=== PATIENT | female | born 1995 | race Caucasian/White ===

== ENCOUNTER → 2023-06-30 | Outpatient (CLI) | payer OTHER, SELFPAY ==
[2023-06-30 13:32] LABS: hCG Titer Quant., Serum 36 mIU/mL (1-3)
== END | disposition home or self-care (01) ==
PROVIDERS: Referring Provider Advanced Practice Midwife; Visit Provider Advanced Practice Midwife
DX: N91.2 Amenorrhea, unspecified (principal)
CPT/HCPCS: 36415; 84702

== ENCOUNTER → 2023-07-02 | Outpatient (CLI) | payer OTHER, SELFPAY ==
[2023-07-02 13:31] LABS: hCG Titer Quant., Serum 101 mIU/mL (1-3)
== END | disposition home or self-care (01) ==
LOC: PAVLAB 12:32
PROVIDERS: Referring Provider Advanced Practice Midwife; Visit Provider Advanced Practice Midwife
DX: N91.2 Amenorrhea, unspecified (principal)
CPT/HCPCS: 36415; 84702

== ENCOUNTER → 2023-07-24 | Outpatient (CLI) | payer OTHER, SELFPAY ==
[2023-07-24 09:55] LABS: Absolute Lymphocyte Count 1.63 X10^3/uL (0.83-4.51); Absolute Neutrophil Count 7.8 X10^3/uL (2.0-7.7); Basophil# 0.05 X10^3/uL; Basophil% 0.5 % (0-1); Eosinophil# 0.02 X10^3/uL; Eosinophils% 0.2 % (0-5); Hematocrit 39.4 % (37-47); Hemoglobin 12.8 g/dL (12.0-15.0); Lymphocyte # 1.63 X10^3/ul (0.83-4.51); Lymphocyte % 16.2 % (19-41); Mean Corp Hgb Conc 32.5 g/dL (32-36); Mean Corpuscular Hgb 27.4 pg (27.0-32.0); Mean Corpuscular Volume 84.2 fL (81-99); Mean Platelet Vol. 9.4 fl (6.2-12.0); Monocyte# 0.53 X10^3/uL; Monocyte% 5.3 % (0-10); NRBC Flagged by Analyzer 0 % (0-5); Neutrophil % 77.5 % (47-70); Platelet Count 358 K/mm3 (150-450); RBC Distribution Width CV 12.7 % (11.6-14.6); RBC Distribution Width SD 38.5 fl (35.1-43.9); Red Blood Count 4.68 M/mm3 (4.2-5.4); White Blood Count 10.1 K/mm3 (4.4-11.0)
[2023-07-24 13:13] LABS: Hemoglobin A1c 4.9 % (3.8-5.6)
[2023-07-24 19:42] LABS: HIV - WCH Non-Reactive (Nonreactive); Hepatitis B Surface Antigen Non-Reactive (Nonreactive); Hepatitis C Antibody Non-Reactive (Nonreactive); Rubella IgG Reactive (Nonreactive); Syphilis Antibodies Non-reactive
[2023-07-26 12:09] LABS: Chlamydia By Nucleic Acid AMP Negative (Negative); Gonococcus By Nucleic Acid AMP Negative (Negative)
[2023-07-28 21:12] LABS: HPV Reflexed? NOT INDICATED
== END | disposition home or self-care (01) ==
LOC: PAVLAB 09:33
PROVIDERS: Referring Provider Advanced Practice Midwife; Visit Provider Advanced Practice Midwife
DX: O09.90 Supervision of high risk pregnancy, unspecified, unspecified trimester (principal); Z3A.00 Weeks of gestation of pregnancy not specified
CPT/HCPCS: 36415; 83036; 85025; 86703; 86762; 86780; 86803; 86850; 86900; 86901; 87086; 87088; 87340; 87491; 87591; 88175; G0145

== ENCOUNTER → 2023-08-13 | Outpatient (CLI) | payer MEDICAID, SELFPAY | END | disposition home or self-care (01) | PROVIDERS: Referring Provider Obstetrics & Gynecology; Visit Provider Obstetrics & Gynecology | DX: O26.899 Other specified pregnancy related conditions, unspecified trimester (principal); R10.9 Unspecified abdominal pain; Z3A.00 Weeks of gestation of pregnancy not specified | CPT/HCPCS: 87086; 87088 ==

== ENCOUNTER → 2023-12-25 | Outpatient (CLI) | payer MEDICAID, SELFPAY ==
[2023-12-25 09:38] LABS: Absolute Lymphocyte Count 1.73 X10^3/uL (0.83-4.51); Absolute Neutrophil Count 8.2 X10^3/uL (2.0-7.7); Basophil# 0.05 X10^3/uL; Basophil% 0.5 % (0-1); Eosinophil# 0.09 X10^3/uL; Eosinophils% 0.8 % (0-5); Hematocrit 33.8 % (37-47); Hemoglobin 11.2 g/dL (12.0-15.0); Lymphocyte # 1.73 X10^3/ul (0.83-4.51); Lymphocyte % 16.3 % (19-41); Mean Corp Hgb Conc 33.1 g/dL (32-36); Mean Corpuscular Hgb 28.9 pg (27.0-32.0); Mean Corpuscular Volume 87.1 fL (81-99); Mean Platelet Vol. 9.3 fl (6.2-12.0); Monocyte# 0.47 X10^3/uL; Monocyte% 4.4 % (0-10); NRBC Flagged by Analyzer 0 % (0-5); Neutrophil # 8.23 X10^3/uL (2.7-7.7); Neutrophil % 77.4 % (47-70); Platelet Count 288 K/mm3 (150-450); RBC Distribution Width CV 13.1 % (11.6-14.6); Red Blood Count 3.88 M/mm3 (4.2-5.4); White Blood Count 10.6 K/mm3 (4.4-11.0)
[2023-12-25 09:57] LABS: Glucose Challenge Gest 1H 50g 127 mg/dL (70-140)
[2023-12-26 13:16] LABS: HIV - WCH Non-Reactive (Nonreactive); Syphilis Antibodies Non-reactive
== END | disposition home or self-care (01) ==
PROVIDERS: Referring Provider Advanced Practice Midwife; Visit Provider Advanced Practice Midwife
DX: O09.91 Supervision of high risk pregnancy, unspecified, first trimester (principal); Z13.1 Encounter for screening for diabetes mellitus; Z3A.00 Weeks of gestation of pregnancy not specified
CPT/HCPCS: 36415; 82950; 85025; 86703; 86780

== ENCOUNTER 2024-01-01 22:40 | Outpatient (CLI) | payer MEDICAID, SELFPAY ==
--- OUTSIDE RECORDS SUMMARY | 2024-01-01 22:51 | XMS RPT_ITS | CCD ---
Author Organization [facility] [employer]INCIPAL PRODUCT MANAGER [facility] Care Team Providers Care Veterinarian Small Animal Name Role Phone Unavailable Primary Care Provider Unavailabl e PHYSICIAN, NONE Primary Care Physician Unavailab KAYODE Voss (PAAbel[facility]) Attending [employer], [facility] Primary Care Provider [employer]av [employer], [facility] Primary Care Unavailable Hilary ALFRED Attending Unavailable CANDI CONTRERAS DO Attending Unavailable PHYSICIAN, NONE Primary Care Unavailable NO PRIMARY CARE, Primary Care Unavailable MABEL CORDOVA Attending Unavailable DANIEL CASTILLO Referring Unavailabl e PHYSICIAN, NONE Primary Care Unavailable CAILIN FLOYD Attending Unav ailable Allergies Allergy Classification Reported Allergen(s) Allergy Type Date of Onset Reaction(s) Facility (2 sources) tuan allergenic extract; Translations: [TUAN] Drug Allergy 05-08-2022 Anaphylaxis [facility] (6 sources) Sulfonamides (Antibiotic); Translations: [sulfa drugs] Drug Allergy 10-10-2020 Diarrhea [facility] (2 sources) Adhesive Tape-Silicones; Translations: [ADHESIVE TAPE-SILICONES] Drug Allergy 05-08-2022 Rash [facility] (1 source) Sulfonamide; Translations: [sulfa drugs] Drug allergy [facility] Medications Completed/Discontinued Medications Medication Drug Class(es) Dates Sig (Normalized) Sig (Original) vit no.124/iron/folic ( VITAMIN ORAL) (1 source) vit no.124/iron/folic ( VITAMIN ORAL) Take by mouth once daily. 0 Active Comment on above: Take by mouth once d aily. tetracaine hydrochloride 5 mg/ml ophthalmic solution (2 sources) [facility] Start: 10-29-2022 End: 10-29-2022 tetracaine (Altacaine) 0.5 % ophthalmic solution 1-2 drop Problems Problem Classification Problem Date Documented Da te Episodic/Chronic Abdominal pain (2 sources) Pain in pelvis; Translations: [Pelvic and perineal pain] Onset: 05-08-2022 Episodic Hemorrhage during ; abruptio placenta; placenta previa (2 sources) Antepartum hemorrhage; Translations: [Antepartum hemorrhage, unspecified, unspecified trimester] Onset: 07-01-2023 Episodic Other female genital disorders (1 source) Vaginal bleeding; Translations: [Abnormal uterine and vaginal bleeding, unspecified] Chronic Other female genital disorders (1 source) Abnormal uterine and vaginal bleeding, unspecified; Translations: [Vaginal bleeding] Onset: 05-08-2022 Chronic Other injuries and conditions due to external causes (2 sources) Foreign body of eye region; Translations: [Foreign body on external eye, part unspecified, right eye, initial encounter] 10-29-2022 Episodic Other injuries and conditions due to external causes (2 sources) Foreign body on external eye, part unspecified, right eye, initial encounter; Translations: [Foreign body on external eye, part unspecified, right eye, initial encounter] Onset: 10-29-2022 Episodic Other and delivery including normal (3 sources) ; Translations: [Encounter for supervision of normal , unspecified, unspecified trimester] Onset: 05-08-2022 Episodic Comment on above: [facility] Status documented as Yes on Admission Spontaneous (1 source) Complete inevitable miscarriage without complication; Translations: [Complete or unspecified spontaneous without complication] Onset: 05-08-2022 Episodic Results Test Name Value Interpretation Reference Range Facility .Auto Diffon 06-30-2023 Basophil, Absolute 0.1 10 3/mcL Normal 0.0-0.2 [facility] ([place]) Comment on above: Performed By: #### G FR, ANEU, ADIFF, CBC, HCGQ, MDW, BMP #### Yoni [address] [address] Basophils/100 WBC (Bld) 0.7 % Normal 0.0-2.5 [facility] ([place]) Comment on above: Performed By: #### G FR, ANEU, ADIFF, CBC, HCGQ, MDW, BMP #### [address] [address] Eosinophil, Absolute 0.1 10 3/mcL Normal 0.0-0.4 [facility] ([place]) Comment on above: Performed By: #### G FR, ANEU, ADIFF, CBC, HCGQ, MDW, BMP #### [address] [address] Eosinophils/100 WBC (Bld) 0.5 % Normal 0.0-7.0 [facility] ([place]) Comment on above: Performed By: #### G FR, ANEU, ADIFF, CBC, HCGQ, MDW, BMP #### [address] [address] Lymphocyte, Absolute 2.5 10 3/mcL Normal 0.8-3.9 [facility] ([place]) Comment on above: Performed By: #### G FR, ANEU, ADIFF, CBC, HCGQ, MDW, BMP #### [address] [address] Lymphocytes/100 WBC (Bld) 22.4 % Normal 10.0-50.0 [facility] ([place] Comment on above: Performed By: #### G FR, ANEU, ADIFF, CBC, HCGQ, MDW, BMP #### [address] [address] Monocyte, Absolute 0.7 10 3/mcL Normal 0.2-1.0 [facility] ([place] Comment on above: Performed By: #### G FR, ANEU, ADIFF, CBC, HCGQ, MDW, BMP #### [address] [address] Monocytes/100 WBC (Bld) 6.6 % Normal 1.7-13.0 [facility] ([place]) Comment on above: Performed By: #### G FR, ANEU, ADIFF, CBC, HCGQ, MDW, BMP #### [address] [address] Neutrophils/100 WBC (Bld) 69.8 % Normal 37.0-80.0 [facility] ([place] Comment on above: Performed By: #### G FR, ANEU, ADIFF, CBC, HCGQ, MDW, BMP #### [address] [address] .GFRon 06-30-2023 GFR 114 ml/min/1.73sqm Normal [facility] ([place]) Comment on above: Result Comment: GFR Population mean for , Non- Americans Ages 20-29 = 116 mL/min/1.73 sq.m. Ages 30-39 = 107 mL/min/1.73 sq.m. Ages 40-49 = 99 mL/min/1.73 sq.m. Ages 50-59 = 93 mL/min/1.73 sq.m. Ages 60-69 = 85 mL/min/1.73 sq.m. Ages 70+ = 75 mL/min/1.73 sq.m. Chronic Kidney Disease: Less than 60 mL/min/1.73 square meters End Stage Renal Disease: Less than 15 mL/min/1.73 square meters Performed By: #### G FR, ANEU, ADIFF, CBC, HCGQ, MDW, BMP #### [address] [address] GFR Non- 94 ml/min/1.73sqm Normal [facility] ([place]) Comment on above: Result Comment: GFR Population mean for , Non- Americans Ages 20-29 = 116 mL/min/1.73 sq.m. Ages 30-39 = 107 mL/min/1.73 sq.m. Ages 40-49 = 99 mL/min/1.73 sq.m. Ages 50-59 = 93 mL/min/1.73 sq.m. Ages 60-69 = 85 mL/min/1.73 sq.m. Ages 70+ = 75 mL/min/1.73 sq.m. Chronic Kidney Disease: Less than 60 mL/min/1.73 square meters End Stage Renal Disease: Less than 15 mL/min/1.73 square meters Performed By: #### G FR, ANEU, ADIFF, CBC, HCGQ, MDW, BMP #### [address] [address] .MDWon 06-30-2023 Monocyte Distribution Width 19.44 Normal 0.00-20.00 [facility] ([place]) Comment on above: Result Comment: For ED adult patients suspected of sepsis, MDW<=20.0 does not rule out sepsis or risk of sepsis Performed By: #### G FR, ANEU, ADIFF, CBC, HCGQ, MDW, BMP #### [place] [id number] .NEUABSon 06-30-2023 Neutrophil, Absolute 7.9 10 3/mcL High 2.9-6.2 [facility] ([place]) Comment on above: Performed By: #### G FR, ANEU, ADIFF, CBC, HCGQ, MDW, BMP #### [address] [address] BMPon 06-30-2023 BUN/Creatinine Ratio 26 ratio Normal 7-27 [facility] ([place] Comment on above: Performed By: #### G FR, ANEU, ADIFF, CBC, HCGQ, MDW, BMP #### [place] [id number] Calcium [Mass/Vol] 9.0 mg/dL Normal 8.4-10.2 [facility] ([place]) Comment on above: Performed By: #### G FR, ANEU, ADIFF, CBC, HCGQ, MDW, BMP #### [address] [address] Chloride [Moles/Vol] 104 mmol/L Normal 98-107 [facility] ([place] Comment on above: Performed By: #### G FR, ANEU, ADIFF, CBC, HCGQ, MDW, BMP #### [place] [address] CO2 [Moles/Vol] 23 mmol/L Normal 22-29 [facility] ([place] Comment on above: Performed By: #### G FR, ANEU, ADIFF, CBC, HCGQ, MDW, BMP #### [address] [address] Creatinine [Mass/Vol] 0.74 mg/dL Normal 0.55-1.02 [facility] ([place]) Comment on above: Performed By: #### G FR, ANEU, ADIFF, CBC, HCGQ, MDW, BMP #### [address] [address] Electrolyte Balance 12.0 mEq/L Normal 4.0-15.0 [facility] ([place]) Comment on above: Performed By: #### G FR, ANEU, ADIFF, CBC, HCGQ, MDW, BMP #### [address] [address] Glucose [Mass/Vol] 97 mg/dL Normal 70-105 [facility] ([place]) Comment on above: Performed By: #### G FR, ANEU, ADIFF, CBC, HCGQ, MDW, BMP #### [address] [address] Potassium [Moles/Vol] 3.6 mmol/L Normal 3.5-5.1 [facility] ([place]) Comment on above: Performed By: #### G FR, ANEU, ADIFF, CBC, HCGQ, MDW, BMP #### [address] [address] Sodium [Moles/Vol] 139 mmol/L Normal 136-145 [facility] ([place]) Comment on above: Performed By: #### G FR, ANEU, ADIFF, CBC, HCGQ, MDW, BMP #### [address] [address] Urea nitrogen [Mass/Vol] 19 mg/dL High 7-18 [facility] ([place]) Comment on above: Performed By: #### G FR, ANEU, ADIFF, CBC, HCGQ, MDW, BMP #### [address] [address] CBCon 06-30-2023 Erythrocyte distribution width (RBC) [Ratio] 13.6 % Normal 11.5-14.5 [facility] ([place]) Comment on above: Performed By: #### G FR, ANEU, ADIFF, CBC, HCGQ, MDW, BMP #### [address] [address] Hematocrit (Bld) [Volume fraction] 38.0 % Normal 37.0-47.0 [facility] ([place] Comment on above: Performed By: #### G FR, ANEU, ADIFF, CBC, HCGQ, MDW, BMP #### [place] [address] Hgb 12.8 G/dL Normal 12.0-16.0 [facility] ([place]) Comment on above: Performed By: #### G FR, ANEU, ADIFF, CBC, HCGQ, MDW, BMP #### [place] [address] MCH (RBC) [Entitic mass] 27.5 pg Normal 27.0-31.2 [facility] ([place] Comment on above: Performed By: #### G FR, ANEU, ADIFF, CBC, HCGQ, MDW, BMP #### [address] [address] MCHC 33.7 G/dL Normal 33.0-37.0 [facility] ([place] Comment on above: Performed By: #### G FR, ANEU, ADIFF, CBC, HCGQ, MDW, BMP #### [address] [address] MCV (RBC) [Entitic vol] 81.5 fL Normal 80.0-94.0 [facility] ([place]) Comment on above: Performed By: #### G FR, ANEU, ADIFF, CBC, HCGQ, MDW, BMP #### [address] [address] Platelet 356 10 3/mcL Normal 130-400 [facility] ([place]) Comment on above: Performed By: #### G FR, ANEU, ADIFF, CBC, HCGQ, MDW, BMP #### [place] [address] Platelet mean volume (Bld) [Entitic vol] 7.6 fL Normal 7.4-10.4 [facility] ([place]) Comment on above: Performed By: #### G FR, ANEU, ADIFF, CBC, HCGQ, MDW, BMP #### [place] [address] [place], [place] [address] RBC 4.66 10 6/mcL Normal 4.20-5.40 [facility] ([place]) Comment on above: Performed By: #### G FR, ANEU, ADIFF, CBC, HCGQ, MDW, BMP #### [place] [id number] [place], [place] [address] WBC 11.3 10 3/mcL High 4.6-10.8 [facility] ([place]) Comment on above: Performed By: #### G FR, ANEU, ADIFF, CBC, HCGQ, MDW, BMP #### [place] [id number] [place], [place] [address] HCGQon 06-30-2023 hCG, quantitative 43.2 mIU/mL Normal [facility] ([place]) Comment on above: Result Comment: HCG Levels with Gestation age: 0.2- 1 week. . . . . . . . . . . . . . . 5 - 50 mIU/mL 1-2 weeks . . . . . . . . . . . . . . . 50 - 500 mIU/mL 2-3 weeks . . . . . . . . . . . . . . . 100 - 5,000 mIU/ml 3-4 weeks . . . . . . . . . . . . . . . 500 - 10,000 mIU/mL 4-5 weeks . . . . . . . . . . . . . . . 1,000 - 5,000 mIU/mL 5-6 weeks . . . . . . . . . . . . . . . 10,000 - 100,000 mIU/mL 6-8 weeks . . . . . . . . . . . . . . . 15,000 - 200,000 mIU/mL 2-3 months . . . . . . . . . . . . . . . 10,000 - 100,000 mIU/mL Performed By: #### G FR, ANEU, ADIFF, CBC, HCGQ, MDW, BMP #### [place] [address] LABORATORYOrdered By: Champ Noonan on 06-30-2023 Appearance (U) Clear (06/30/23 7:34 PM) Normal Clear AO Auto Urine SS Bilirubin Ql (U) Negative (06/30/23 7:34 PM) Normal Negative AO Auto Urine SS Color (U) Yellow (06/30/23 7:34 PM) Normal AO Auto Urine SS Glucose Test strip (U) [Mass/Vol] Negative Normal Negative AO Auto Urine SS Hemoglobin Auto test strip (U) [Mass/Vol] Negative (06/30/23 7:34 PM) Normal Negative AO Auto Urine SS Ketones Ql (U) 80 mg/dL Invalid Interpretation Code Negative AO Auto Urine SS UA Leuk Est Negative (06/30/23 7:34 PM) Normal Negative AO Auto Urine SS UA Nitrite Negative (06/30/23 7:34 PM) Normal Negative AO Auto Urine SS UA pH 6.0 (06/30/23 7:34 PM) Normal 5.0 - 8.0 AO Auto Urine SS UA Protein Negative Normal Negative AO Auto Urine SS UA Spec Grav 1.025 (06/30/23 7:34 PM) Normal 1.015-1.02 5 AO Auto Urine SS UA Specimen Type Clean Catch (06/30/23 7:34 PM) Normal AO Auto Urine SS UA Urobilinogen 0.2 E.U./dL Normal 0.2-1.0 AO Auto Urine SS LABORATORYOrdered By: SYSTEM SYSTEM on 06-30-2023 Basophil, Absolute 0.1 103/mcL Normal 0.0 - 0.2 10^3/mcL AO Workflow SS Basophils/100 WBC (Bld) 0.7 % Normal 0.0 - 2.5 % AO Workflow SS Calcium [Mass/Vol] 9.0 mg/dL Normal 8.4 - 10. 2 mg/dL AO ADM SS Chloride [Moles/Vol] 104 mmol/L Normal 98 - 107 mmol/L AO ADM SS CO2 [Moles/Vol] 23 mmol/L Normal 22 - 29 mmol/L AO ADM SS Creatinine [Mass/Vol] 0.74 mg/dL Normal 0.55 - 1.02 mg/dL AO ADM SS Electrolyte Balance 12.0 mEq/L Normal 4.0 - 15.0 mEq/L AO ADM SS Eosinophil, Absolute 0.1 103/mcL Normal 0.0 - 0.4 10^3/mcL AO Workflow SS Eosinophils/100 WBC (Bld) 0.5 % Normal 0.0 - 7.0 % AO Workflow SS Erythrocyte distribution width (RBC) [Ratio] 13.6 % Normal 11.5 - 14.5 % AO Workflow SS GFR/1.73 sq M.predicted among blacks MDRD (S/P/Bld) [Vol rate/Area] 114 ml/min/1.73sqm Invalid Interpretation Code AO Chemistry S Comment on above: Interpretive Data: GFR Population mean for , Non- Americans Ages 20-29 = 116 mL/min/1.73 sq.m. Ages 30-39 = 107 mL/min/1.73 sq.m. Ages 40-49 = 99 mL/min/1.73 sq.m. Ages 50-59 = 93 mL/min/1.73 sq.m. Ages 60-69 = 85 mL/min/1.73 sq.m. Ages 70+ = 75 mL/min/1.73 sq.m. Chronic Kidney Disease: Less than 60 mL/min/1.73 square meters End Stage Renal Disease: Less than 15 mL/min/1.73 square meters GFR/1.73 sq M.predicted among non-blacks MDRD (S/P/Bld) [Vol rate/Area] 94 ml/min/1.73sqm Invalid Interpretation Code AO Chemistry S Comment on above: Interpretive Data: GFR Population mean for , Non- Americans Ages 20-29 = 116 mL/min/1.73 sq.m. Ages 30-39 = 107 mL/min/1.73 sq.m. Ages 40-49 = 99 mL/min/1.73 sq.m. Ages 50-59 = 93 mL/min/1.73 sq.m. Ages 60-69 = 85 mL/min/1.73 sq.m. Ages 70+ = 75 mL/min/1.73 sq.m. Chronic Kidney Disease: Less than 60 mL/min/1.73 square meters End Stage Renal Disease: Less than 15 mL/min/1.73 square meters Glucose [Mass/Vol] 97 mg/dL Normal 70 - 105 mg/dL AO ADM SS HCG Qn 43.2 m[IU]/mL Invalid Interpretation Code AO ADM SS Comment on above: Interpretive Data: H CG Levels with Gestation age: 0.2- 1 week. . . . . . . . . . . . . . . 5 - 50 mIU/mL 1-2 weeks . . . . . . . . . . . . . . . 50 - 500 mIU/mL 2-3 weeks . . . . . . . . . . . . . . . 100 - 5,000 mIU/ml 3-4 weeks . . . . . . . . . . . . . . . 500 - 10,000 mIU/mL 4-5 weeks . . . . . . . . . . . . . . . 1,000 - 5,000 mIU/mL 5-6 weeks . . . . . . . . . . . . . . . 10,000 - 100,000 mIU/mL 6-8 weeks . . . . . . . . . . . . . . . 15,000 - 200,000 mIU/mL 2-3 months . . . . . . . . . . . . . . . 10,000 - 100,000 mIU/mL Hematocrit (Bld) [Volume fraction] 38.0 % Normal 37.0 - 47.0 % AO Workflow SS Hemoglobin (Bld) [Mass/Vol] 12.8 G/dL Normal 12.0 - 16.0 G/dL AO Workflow SS Lymphocyte, Absolute 2.5 103/mcL Normal 0.8 - 3.9 10^3/mcL AO Workflow SS Lymphocytes/100 WBC (Bld) 22.4 % Normal 10.0 - 50.0 % AO Workflow SS MCH (RBC) [Entitic mass] 27.5 pg Normal 27.0 - 31.2 pg AO Workflow SS MCHC 33.7 G/dL Normal 33.0 - 37.0 G/dL AO Workflow SS MCV (RBC) [Entitic vol] 81.5 fL Normal 80.0 - 94.0 fL AO Workflow SS Monocyte distribution width Auto (Bld) [Entitic vol] 19.44 1 Normal 0.00 - 20.00 AO Workflow SS Comment on above: Result Comment: For ED adult patients suspected of sepsis, MDW<=20.0 does not rule out sepsis or risk of sepsis Monocyte, Absolute 0.7 103/mcL Normal 0.2 - 1.0 10^3/mcL AO Workflow SS Monocytes/100 WBC (Bld) 6.6 % Normal 1.7 - 13.0 % AO Workflow SS Neutrophil, Absolute 7.9 103/mcL High 2.9 - 6.2 10^3/mcL AO Workflow SS Neutrophils/100 WBC (Bld) 69.8 % Normal 37.0 - 80.0 % AO Workflow SS Platelet mean volume (Bld) [Entitic vol] 7.6 fL Normal 7.4 - 10.4 fL AO Workflow SS Platelets (Bld) [#/Vol] 356 103/mcL Normal 130 - 400 10^3/mcL AO Workflow SS Potassium [Moles/Vol] 3.6 mmol/L Normal 3.5 - 5.1 mmol/L AO ADM SS RBC (Bld) [#/Vol] 4.66 106/mcL Normal 4.20 - 5.40 10^6/mcL AO Workflow SS Sodium [Moles/Vol] 139 mmol/L Normal 136 - 145 mmol/L AO ADM SS Urea nitrogen [Mass/Vol] 19 mg/dL High 7 - 18 mg/dL AO ADM SS Urea nitrogen/Creatinin e [Mass ratio] 26 ratio Normal 7 - 27 ratio AO ADM SS WBC (Bld) [#/Vol] 11.3 103/mcL High 4.6 - 10.8 10^3/mcL AO Workflow SS UAon 06-30-2023 Color (U) Yellow Normal [facility] ([place]) Comment on above: Performed By: #### U A #### [address] [address] Glucose (U) [Mass/Vol] Negative Normal Negative [facility] ([place]) Comment on above: Performed By: #### U A #### [address] [address] Ketones Ql (U) 80 mg/dL Abnormal Negative [facility] ([place]) Comment on above: Performed By: #### U A #### [address] [address] UA Appear Clear Normal Clear [facility] ([place]) Comment on above: Performed By: #### U A #### [address] [address] UA Blood Negative Normal Negative [facility] ([place]) Comment on above: Performed By: #### U A #### [place] [address] [address] UA Leuk Est Negative Normal Negative [facility] ([place]) Comment on above: Performed By: #### U A #### [place] [address] [address] UA Nitrite Negative Normal Negative [facility] ([place]) Comment on above: Performed By: #### U A #### [address] [address] UA pH 6.0 Normal 5.0 - 8.0 [facility] ([place]) Comment on above: Performed By: #### U A #### [address] [address] UA Protein Negative Normal Negative [facility] ([place]) Comment on above: Performed By: #### U A #### [address] [address] UA Spec Grav 1.025 Normal 1.015-1.02 5 [facility] ([place]) Comment on above: Performed By: #### U A #### [address] [address] UA Specimen Type Clean Catch Normal [facility] ([place]) Comment on above: Performed By: #### U A #### [address] [address] UA Urobilinogen 0.2 E.U./dL Normal 0.2-1.0 [facility] ([place]) Comment on above: Performed By: #### U A #### [address] [address] Urobilinogen (U) [Mass/Vol] Negative Normal Negative [facility] ([place]) Comment on above: Performed By: #### U A #### [address] [address] ED Nursing Noteon 10-29-2022 ED Nursing Note Pt discharged to [facility] by CIRO Vera. No IV in place. Brigette Taylor RN 10/29/222104 ED Nursing Note Jody TANNER bedside. Devendra Donovan RN 10/29/222055 ED Nursing Note Pt A+Ox4. Pt has graham n and equal chest rise. Pt denies any needs at this time. Devendra Donovan RN 10/29/222055 ED Nursing Note Report given to Yordy cedeño RN, ED nurse credit office manager. Mabel Malloy RN 10/29/22 170 ED Nursing Note Pt had urine drug sc reen done per company policy s/p work injury. Mabel Malloy RN 10/29/22 1649 ED Nursing Note Bed: 15 Expected date: 10/29/22 Expected time: 7:09 PM Means of arrival: Comments: triage Salma Galvez RN 10/29/22 1914 ED Provider Noteon ED Provider Note EMERGENCY DEPARTMENT ENCOUNTER Pt Name: Enmanuel Cardenas Birthdate 1995 Date of evaluation: 10/29/2022 ED Provider: Emily Silva MD CHIEF COMPLAINT Chief Complaint Patient presents with Eye Problem Pt states was at work at [email or web address] and had safety eyewear in place. Possible foreign body or dust in eye at approx 1505 today. HISTORY OF PRESENT ILLNESS (Location/Symptom, Timing/Onset, Context/Setting, Quality, Duration, Modifying Factors, Severity) Note limiting factors. HPI Enmanuel Cardenas is a 27 y.o. female who presents to the emergency department for concern for foreign body in her eye. Patient states that she was at work wearing her safety eyewear and she was working with metal and there was a fan near her to cool her off and something felt like it flew into her right eye. She states that since then she is been having some changes to her vision including brief blurry vision. She feels like she cannot open her eye because he is having a lot of pain. She feels like there is something in there that continues scratching her eye. Denies any other injuries. Nursing Notes were reviewed. REVIEW OF SYSTEMS Review of Systems Pertinent positives and negatives per HPI PAST MEDICAL HISTORY History reviewed. No pertinent past medical history. SURGICAL HISTORY History reviewed. No pertinent surgical history. CURRENT MEDICATIONS Previous Medications No medications on file ALLERGIES Sulfa antibiotics FAMILY HISTORY No family history on file. SOCIAL HISTORY Social History Socioeconomic History Marital status: Single Tobacco Use Smoking status: Never Smokeless tobacco: Never Vaping Use Vaping Use: Never used Substance and Sexual Activity Drug use: Never SCREENINGS PHYSICAL EXAM ED Triage Vitals [10/29/22 1521] Temp Heart Rate Resp BP 36.1 ?C (97 ?F) 87 20 (!) 159/106 SpO2 Temp Source Heart Rate Source Patient Position 97 % Infrared -- -- BP Location FiO2 (%) -- -- Physical Exam Uncomfortable appearing female lying in bed. Vital signs were reviewed and are largely unremarkable. Visual acuity was done by nursing and noted in chart. Right eye with some mild irritation. Normal pupil with negative Harinder sign. Some fluorescein uptake to the inner corner of her sclera. Concern for a foreign body underneath the upper eyelid on the medial aspect. No corneal ulcer or abrasion. DIAGNOSTIC RESULTS RADIOLOGY (Per Emergency Physician): Interpretation per the Radiologist below, if available at the time of this note: No orders to display LABS: Labs Reviewed - No data to display All other labs were within normal range or not returned as of this dictation. EMERGENCY DEPARTMENT COURSE and DIFFERENTIAL DIAGNOSIS/MDM: Vitals: Vitals: 10/29/22 1521 BP: (!) 159/106 Pulse: 87 Resp: 20 Temp: 36.1 ?C (97 ?F) TempSrc: Infrared SpO2: 97% Weight: 118 kg (260 lb) Medications tetracaine (Altacaine) 0.5 % ophthalmic solution 1-2 drop (has no administration in time range) fluorescein 1 MG ophthalmic strip 1 strip (has no administration in time range) Medical Decision Making Problems Addressed: Foreign body of right eye, initial encounter: complicated acute illness or injury Risk Prescription drug management. 27-year-old female presenting emergency department today for concern for a foreign body in the eye. Patient is afebrile and hemodynamically stable on arrival. Was at work when something flew into her eye. 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 She was wearing her safety goggles at the time but is having some discomfort still to the eye. She states that she feels like there is something scratching her eye and the inner corner of it underneath her upper eyelid. On exam she does have some tearing. Her pupil is normal and reactive. She has decreased visual acuity to the right eye. I am able to see some fluorescein uptake to the inner corner of her sclera and there is what appears to be a foreign body embedded underneath her eyelid medially. Unfortunately do not feel comfortable trying to remove this foreign body so the plan will be to transfer her to [facility] emergency department in order to be evaluated by the pci security consultant there. Patient is agreeable to this. Will be transferred via private vehicle that a coworker will drive. I Emily Silva MD am the epic interface analyst of record. FINAL IMPRESSION 1. Foreign body of right eye, initial encounter DISPOSITION Transfer To [facility] Ed 10/29/2022 03:51:50 PM PATIENT REFERRED TO: No follow-up provider specified. DISCHARGE MEDICATIONS: New Prescriptions No medications on file (Comment: Please note this report has been produced using speech recognition software and may contain errors related to that system including errors in grammar, punctuation, and spelling, as well as words (more content not included)... Normal [facility] ED Provider Note Emergency Department Encounter [facility] EMERGENCY DEPT Patient: Enmanuel Cardenas : 1995 Date of Evaluation: 10/29/2022 ED Provider: Hilary Alfred MD I saw the patient as the Clinician in Triage and performed a brief history and physical exam, established acuity, and ordered appropriate tests to develop basic plan of care. Patient will be seen by PAUL, resident and/or my physician partner who will evaluate the patient. If seen by the PAUL I will manage the patient in a supervisory role and will be available for co-management. I did perform a substantive portion of the visit including all aspects of the Medical Decision Making. I wore appropriate PPE for the entirety of this encounter. Brief HPI: In brief, Enmanuel Cardenas is a 27 y.o. female that presents for right eye pain and foreign body sensation. The patient states that she was at work with a fan on and even though she was wearing her safety goggles, she thinks that metal or dust flew into her right eye. Because of decreased visual acuity and a potential foreign body embedded underneath her medial right eyelid, she was transferred from [facility] for an ophthalmology consult. Focused Physical exam: Patient able to open her right eye, EOMI. Plan/MDM: Dr. Rinaldi from ophthalmology was consulted and states that he will be here in about 25 minutes to evaluate the patient. Please see subsequent provider note for further details and disposition Comment: Please note this report has been produced using speech recognition software and may contain errors related to that system including errors in grammar, punctuation, and spelling as well as words and phrases that may be inappropriate. If there are any questions or concerns please feel free to contact the dictating provider for clarification Hilary Alfred MD [employer] [facility] Hilary Alfred MD 10/29/22 1842 ED Provider Note EMERGENCY DEPARTMENT ENCOUNTER Pt Name: Enmanuel Cardenas Birthdate 1995 Date of evaluation: 10/29/2022 ED Provider: Jody Fagan APRN - [facility] was supervised by Dr. Alfred who independently examined and evaluated the patient. Please see their attestation note for further details. CHIEF COMPLAINT Chief Complaint Patient presents with Eye Problem Pt states was at work at [email or web address] and had safety eyewear in place. Possible foreign body or dust in eye at approx 1505 today. HISTORY OF PRESENT ILLNESS (Location/Symptom, Timing/Onset, Context/Setting, Quality, Duration, Modifying Factors, Severity) Note limiting factors. I wore appropriate PPE for the entirety of this encounter. HPI Enmanuel Cardenas is a 27 y.o. who presents to the emergency department with complaints of having a foreign body in her right eye and sent from another [facility] emergency department. Nursing Notes were reviewed. Limitations to history: None Outside historians: None REVIEW OF SYSTEMS Review of Systems Pertinent positives and negatives as per HPI. PAST MEDICAL HISTORY History reviewed. No pertinent past medical history. SURGICAL HISTORY History reviewed. No pertinent surgical history. CURRENT MEDICATIONS Previous Medications No medications on file ALLERGIES Sulfa antibiotics FAMILY HISTORY No family history on file. SOCIAL HISTORY Social History Socioeconomic History Marital status: Single Tobacco Use Smoking status: Never Smokeless tobacco: Never Vaping Use Vaping Use: Never used Substance and Sexual Activity Drug use: Never SCREENINGS PHYSICAL EXAM ED Triage Vitals Temp Heart Rate Resp BP 10/29/22 1521 10/29/22 1521 10/29/22 1521 10/29/22 1521 36.1 ?C (97 ?F) 87 20 (!) 159/106 SpO2 Temp Source Heart Rate Source Patient Position 10/29/22 1521 10/29/22 1521 10/29/22 1646 -- 97 % Infrared Monitor BP Location FiO2 (%) -- -- Physical Exam Constitutional: General: She is not in acute distress. Appearance: Normal appearance. HENT: Head: Normocephalic and atraumatic. Mouth/Throat: Mouth: Mucous membranes are moist. Eyes: Pupils: Pupils are equal, round, and reactive to light. Cardiovascular: Rate and Rhythm: Normal rate and regular rhythm. Pulses: Normal pulses. Heart sounds: Normal heart sounds. Pulmonary: Effort: Pulmonary effort is normal. Breath sounds: Normal breath sounds. Abdominal: General: Bowel sounds are normal. Palpations: Abdomen is soft. Musculoskeletal: Cervical back: Normal range of motion. Skin: General: Skin is warm and dry. Capillary Refill: Capillary refill takes less than 2 seconds. Neurological: General: No focal deficit present. Mental Status: She is alert and oriented to person, place, and time. DIAGNOSTIC RESULTS RADIOLOGY (Per Emergency Physician): Interpretation per the Radiologist below, if available at the time of this note: No orders to display LABS: Labs Reviewed - No data to display All other labs were within normal range or not returned as of this dictation. EMERGENCY DEPARTMENT COURSE and DIFFERENTIAL DIAGNOSIS/MDM: Vitals: Vitals: 10/29/22 1521 10/29/22 1646 10/29/22 1750 10/29/22 2056 BP: (!) 159/106 (!) 147/82 (!) 146/89 (!) 158/110 Pulse: 87 74 63 72 Resp: 20 18 16 15 Temp: 36.1 ?C (97 ?F) 36.2 ?C (97.1 ?F) TempSrc: Infrared Temporal SpO2: 97% 99% 99% 100% Weight: 118 kg (260 lb) Medications tetracaine (Altacaine) 0.5 % ophthalmic solution 1-2 drop (2 drops Both Eyes Given by Other 8/22/23 1530) fluorescein 1 MG ophthalmic strip 1 strip (1 strip Both Eyes Given by Other 10/29/221529) Enmanuel Anton, a 27-year-old female presented to the [facility] emergency department and then was told to come here to [facility] to see ophthalmology due to having a foreign body in her eye. While she was in the waiting room waiting for ophthalmology the foreign body came out of her eye. Dr. Rinaldi from ophthalmology did an eye exam and could not find anything left in her eye. He instructed her to purchase [id number] refresh eyedrops if her eye continued to be irritated. The above was discussed with the patient. She told me that her eye still felt irritated. I reinforced her picking up some refresh eyedrops at the nearest pharmacy. PROCEDURES: Unless otherwise noted below, none Procedures CRITICAL CARE TIME None FINAL IMPRESSION 1. Foreign body of right eye, initial encounter DISPOSITION Discharge to home PATIENT REFERRED TO: [facility] [address] [address] DISCHARGE MEDICATIONS: New Prescriptions No medications on file (Comment: Please note this report has been produced using speech recognition software and may contain errors related to that system including errors in grammar, punctuation, and spelling, as well as words and phrases that may be inappropriate. If there are any questions or concerns plea (more content not included)... Normal [facility] Progress Noteon 10-29-2022 Progress Note ED ophthalmology con della note Present illness: 27 yo female that at work today, she thinks something got into right eye (OD). Complains of foreign body sensation which was relieved just before I came into room to see patient. Patient stated that she had been trying to get something out of right eye (OD) with a piece of cloth and showed me a tiny foreign body on the cloth which she said that she had removed from upper eyelid right eye (OD). Patient stated foreign body sensation was now relieved. Eye exam: Visual acuity without lens correction 20/100 right eye (OD) and 20/20 left eye (OS). (Patient states that she wears a corrective lens right eye (OD) for astigmatism but her spectacles are at her place of work). External examination right eye (OD) is normal. No conjunctival injection. Slit lamp examination of cornea OD reveals clear cornea without evidence of foreign body. No fluorescein dye uptake of cornea or conjunctiva right eye (OD). Right upper eyelid everted of and no evidence of foreign body embedded in tarsal conjunctiva. Impression: Status post symptoms of foreign body of cornea or conjunctiva right eye (OD)/ apparently removed by patient/ no evidence of residual injury right eye (OD). Disposition: Explained above to patient in detail. Recommended that she buy a bottle of Refresh Tears at drugstore and instill into right eye (OD) if she experiences any further irritation in right eye. [facility] 05-08-2022 CN Office Visit (UCMMAS ) ENMANUEL CARDENAS ([id number]) 1995 F Date Time Provider Department 05/08/22 8:55 AM KAYODE RAPP) [facility] During your visit today, we recorded the following information about you: Temperature Pulse Respiration Blood pressure 99 degrees 64/minute 22/minute 137/81 Weight Last Period 126.1 kg 03/18/22 Kayode Rapp PA-C, ANETA 05/08/2022 9:56 AM Signed Enmanuel Fernándeziott is an 26 year old female presenting with Vaginal Problem (Patient states that two days ago she had a positvie at home test //She states she started spotting last night /She states she took an at home test this morning and it was negative. /) HPI: The patient states that she has had 3 positive and 1 negative at home over the last few days. Patient states her last menstrual period was March 18, 2022. Patient states she started some vaginal spotting bleeding last evening. Patient also states she has had some pelvic cramping as well since yesterday. The patient states positive nausea no vomiting diarrhea. Bowel movements have been normal color and consistency. No black or bloody stools. The patient denies dysuria, urinary frequency, urgency and or gross hematuria. No flank pain. Denies fevers chills. History reviewed. No pertinent past medical history. There is no problem list on file for this patient. Current Outpatient Medications Medication Sig Dispense Refill vit no.124/iron/folic ( VITAMIN ORAL) Take by mouth once daily. No current facility-administered medications for this visit. Social History Tobacco Use Smoking status: Never Smokeless tobacco: Never Vaping Use Vaping Use: Never used Substance Use Topics Alcohol use: Yes Comment: once a month Drug use: Never Alcohol Use: Yes (once a month) Tobacco Use: Never History reviewed. No pertinent family history. ROS: Unless otherwise stated in this report the patient's positive and negative responses for review of systems for constitutional, eyes, ENT, cardiovascular, respiratory, gastrointestinal, neurological, , musculoskeletal, and integument systems and related systems to the presenting problem are either stated in the history of present illness or were not pertinent or were negative for the symptoms and/or complaints related to the presenting medical problem. BP 137/81 Pulse 64 Temp (Src) 99 (Temporal) Resp 22 Wt 278 lb (126.1kg) SpO2 100% LMP 03/18/2022 Physical Exam: Const: Appears healthy and well developed. No signs of acute distress present. Vitals reviewed per triage. Head/Face: Normocephalic, atraumatic. Facies is symmetric. Eyes: PERRL. ENMT: Tympanic membranes are pearly thakur with good light reflex bilaterally. Nares are patent. Buccal mucosa was moist. Posterior pharynx shows no exudate, irritation or redness. Neck: Supple and symmetric. Palpation reveals no adenopathy. Trachea midline. Resp: Lungs are clear bilaterally. CV: Rhythm is regular. S1 is normal. S2 is normal. Abdomen: Abdomen soft, mild tenderness right and left pelvic area abdomen is nondistended with BSPx4. No abdominal guarding, rebound tenderness peritoneal signs masses or organomegally noted. Musculo: Walks with a normal gait. Patient moves extremities without pain or limitation. Pulses are equal bilaterally. Skin: Skin is warm and dry. Neuro: Alert and oriented x3. Speech is articulate and fluent. Psych: Patient's mood and affect is appropriate Pelvic deferred Enmanuel was seen today for vaginal problem. Diagnoses and all orders for this visit: , unspecified gestational age Pelvic pain Vaginal bleeding I do feel based on the patient's history and physical exam further evaluation is warranted in the emergency department. Therefore patient was sent to [facility] emergency department for further evaluation and management. Kayode Rapp PA-C, ANETA Return for To ER for evaluation and management. Referring Provider: SELF [[id number]] Allergies As of Date: 05/08/2022 Noted Allergy Reaction SULFA (SULFONAMIDE ANTIBIOTICS) 10/10/2020 6 - Diarrhea ADHESIVE TAPE-SILICONES 05/08/2022 2 - Rash TUAN 05/08/2022 10 - Anaphylaxis Date Reviewed: 05/08/2022 Reviewed by: Kayode Salazar (Aneta) ANETA Rapp - Fully Assessed Reason for Visit: Vaginal Problem [117] Cmt: Patient states that two days ago she had a positvie at home test She states she started spotting last night She states she took an at home test this morning and it was negative. Primary Visit Diagnosis:, unspecified gestational age [Z34.90] Other Visit Diagnoses:Pelvic pain [R10.2] Vaginal bleeding [N93.9] Prescriptions as of 05/08/2022 - vit no.124/iron/folic ( VITAMIN ORAL) Take by mouth once daily. Problem List As Of Date: 05/08/2022 (None) Lev (more content not included)... Normal [facility] LABORATORYOrdered By: Ruth Ponce on 05-08-2022 ABO/Rh Interp Positive Invalid Interpretation Code AO BB SS Basophil, Absolute 0.1 103/mcL Invalid Interpretation Code 0.0 - 0.2 10^3/mcL AO Workflow SS Basophils/100 WBC (Bld) 0.8 % Invalid Interpretation Code 0.0 - 2.5 % AO Workflow SS Eosinophil, Absolute 0.0 103/mcL Invalid Interpretation Code 0.0 - 0.4 10^3/mcL AO Workflow SS Eosinophils/100 WBC (Bld) 0.2 % Invalid Interpretation Code 0.0 - 7.0 % AO Workflow SS Erythrocyte distribution width (RBC) [Ratio] 14.3 % Invalid Interpretation Code 11.5 - 14.5 % AO Workflow SS Hematocrit (Bld) [Volume fraction] 38.6 % Invalid Interpretation Code 37.0 - 47.0 % AO Workflow SS Hemoglobin (Bld) [Mass/Vol] 12.8 G/dL Invalid Interpretation Code 12.0 - 16.0 G/dL AO Workflow SS Lymphocyte, Absolute 1.6 103/mcL Invalid Interpretation Code 0.8 - 3.9 10^3/mcL AO Workflow SS Lymphocytes/100 WBC (Bld) 20.8 % Invalid Interpretation Code 10.0 - 50.0 % AO Workflow SS MCH (RBC) [Entitic mass] 26.9 pg Invalid Interpretation Code 27.0 - 31.2 pg AO Workflow SS MCHC 33.1 G/dL Invalid Interpretation Code 33.0 - 37.0 G/dL AO Workflow SS MCV (RBC) [Entitic vol] 81.0 fL Invalid Interpretation Code 80.0 - 94.0 fL AO Workflow SS Monocyte distribution width Auto (Bld) [Entitic vol] 15.82 Invalid Interpretation Code 0.00 - 20.00 AO Workflow SS Comment on above: Result Comment: For ED adult patients suspected of sepsis, MDW<=20.0 does not rule out sepsis or risk of sepsis Monocyte, Absolute 0.4 103/mcL Invalid Interpretation Code 0.2 - 1.0 10^3/mcL AO Workflow SS Monocytes/100 WBC (Bld) 5.5 % Invalid Interpretation Code 1.7 - 13.0 % AO Workflow SS Neutrophil, Absolute 5.7 103/mcL Invalid Interpretation Code 2.9 - 6.2 10^3/mcL AO Workflow SS Neutrophils/100 WBC (Bld) 72.7 % Invalid Interpretation Code 37.0 - 80.0 % AO Workflow SS Platelet mean volume (Bld) [Entitic vol] 7.5 fL Invalid Interpretation Code 7.4 - 10.4 fL AO Workflow SS Platelets (Bld) [#/Vol] 405 103/mcL Invalid Interpretation Code 130 - 400 10^3/mcL AO Workflow SS RBC (Bld) [#/Vol] 4.76 106/mcL Invalid Interpretation Code 4.20 - 5.40 10^6/mcL AO Workflow SS WBC (Bld) [#/Vol] 7.9 103/mcL Invalid Interpretation Code 4.6 - 10.8 10^3/mcL AO Workflow SS LABORATORYOrdered By: Anjali Villa on 05-08-2022 HCG ( test) Ql Negative (05/08/22 11:09 AM) Invalid Interpretation Code AO Manual Urine SS test (u) int Not detected Invalid Interpretation Code AO Manual Urine SS LABORATORYOrdered By: SYSTEM SYSTEM on 05-08-2022 HCG Qn mIU/mL Invalid Interpretation Code AO ADM SS DIPSTICKon 12-29-2020 POC APPEARANCE CLEAR Normal CLEAR [facility] Comment on above: Order Comment: Aldairu s: MAS POC BILIRUBIN Negative Normal NEGATIVE [facility] Comment on above: Order Comment: Campu s: MAS POC BLOOD Negative Normal NEGATIVE [facility] Comment on above: Order Comment: Campu s: MAS POC COLOR YELLOW Normal [facility] Comment on above: Order Comment: Campu s: MAS POC KETONE Negative Normal NEGATIVE [facility] Comment on above: Order Comment: Campu s: MAS POC LEUK EST Negative Normal NEGATIVE [facility] Comment on above: Order Comment: Campu s: MAS POC NITRITE Negative Normal NEGATIVE [facility] Comment on above: Order Comment: Campu s: MAS POC PROTEIN Negative Normal NEGATIVE [facility] Comment on above: Order Comment: Campu s: MAS POC SPEC GRAV 1.020 Normal 1.005-1.03 0 [facility] Comment on above: Order Comment: Campu s: MAS POC UA GLUCOSE NORMAL Normal NORMAL [facility] Comment on above: Order Comment: Campu s: MAS POC UA PH 6.0 Normal 5-6 [facility] Comment on above: Order Comment: Campu s: MAS POC UROBIL NORMAL Normal NORMAL [facility] Comment on above: Order Comment: Titus s: REGGIE MSCon 12-29-2020 [facility] REPORT Normal [facility] DATE OF SERVICE: REASON OF VISIT: Burning urination. HISTORY OF PRESENT ILLNESS: This is a 25-year-old female who presents with burning urination for the last 6 days. Denies any fever or chills. Initially, he had blood in her urine as well. No discharge. No back pain. Patient stated that she already took leftover amoxicillin. She took two 500-mg doses of amoxicillin twice yesterday. The last time was 10 p.m. last night. No other problem at this visit. Review of other systems normal. ALLERGIES: TUAN, ADHESIVES, SULFA. MEDICATIONS: Leftover amoxicillin. PHYSICAL EXAMINATION: She is awake, alert, not in distress. No dyspnea. Temperature 97.5, blood pressure 149/70, pulse 83, respirations 18, pulse oximetry 97%. Pain score 2/10. HEENT: Unremarkable. Chest: Clear to auscultate. Heart: Regular rate and rhythm. Abdomen: Benign. No CVA tenderness. Urine dipstick was negative for leukocytes, nitrite, blood, and protein. ASSESSMENT: Urinary tract infection. [facility] PATIENT NAME: ENMANUEL CARDENAS [address] [facility] [address] Mora MEDICAL REC #: [id number] [place] [address] [facility] REPORT [facility]ARE PHYSICIAN PLAN: Clinical findings discussed with the patient and her mother in detail. I explained to them that this urine check today did not show any abnormal finding, but she had already taken 2 doses of antibiotics which might have started clearing up the urine, so I will continue her with antibiotic with amoxicillin 875 mg twice a day for 5 days with no refill. She should drink a lot of fluids. Tylenol as needed. She did not want a urine culture. She should follow up with her primary doctor for further evaluation and care if there is no improvement. Patient understands and agrees. Yumiko Gavin MD /[id number] [facility] File#: [id number] END OF DOCUMENT / CHANGE LOG FOLLOWS Last Edited By Elec. Signed By Yumiko Gavin MD #PAWPR Yumiko Gavin MD #PAWPR on 01/09/2021 19:40 ET on 01/09/2021 19:40 ET Revision Number - 2 [facility] PATIENT NAME: ENMANUEL CARDENAS Stephany Mora MEDICAL REC #: [id number] [place] [address] [facility] REPORT [facility]ARE PHYSICIAN Verified/Reviewed by 01/09/21 [email or web address] PAWPR [facility] PATIENT NAME: [facility] Dr[facility] Mora MEDICAL REC #: [id number] [place] [address] [facility] REPORT STATCARE PHYSICIAN Normal [facility] 11-01-2020 Albumin [Mass/Vol] 3.8 g/dL Normal 3.2-5.0 [facility] Comment on above: Performed By: #### L 500.47461, L500.69448, L500.90320, L500.46451 #### [facility] LABORATORY [address] [place] [address] Albumin/Globulin [Mass ratio] 1.1 {ratio} Normal 0.8-2.0 [facility] Comment on above: Performed By: #### L 500.25280, L500.43701, L500.56869, L500.09237 #### [facility] [address] [place] [address] ALK PHOS 95 U/L Normal 45-117 [facility] Comment on above: Performed By: #### L 500.37815, L500.62291, L500.61942, L500.01300 #### [facility] [address] [place] [address] ALT [Catalytic activity/Vol] 14 U/L Normal 13-61 [facility] Comment on above: Result Comment: RESU LTS MAY BE FALSELY DEPRESSED AFTER THE ADMINISTRATION OF SULFASALAZINE AND/OR SULFAPYRIDINE. Performed By: #### L 500.13393, L500.93530, L500.63204, L500.43851 #### [facility] [address] [place] [address] Anion gap [Moles/Vol] 6 mmol/L Normal 5-16 [facility] Comment on above: Performed By: #### L 500.65414, L500.51451, L500.11817, L500.62995 #### [facility] [address] [place] [address] AST [Catalytic activity/Vol] 15 U/L Normal 8-34 [facility] Comment on above: Result Comment: RESU LTS MAY BE FALSELY DEPRESSED AFTER THE ADMINISTRATION OF SULFASALAZINE AND/OR SULFAPYRIDINE. Performed By: #### L 500.02593, L500.19775, L500.32715, L500.29368 #### [facility] [address] [place] [address] BILI TOTAL 0.40 MG/DL Normal 0.2-1.0 [facility] Comment on above: Performed By: #### L 500.00143, L500.89077, L500.69791, L500.53536 #### [facility] [address] [place], [place] [id number] Calcium [Mass/Vol] 9.9 mg/dL Normal 8.5-10.5 [facility] Comment on above: Result Comment: NOTE NEW NORMAL RANGE DUE TO REAGENT CHANGE Performed By: #### L 500.58201, L500.29610, L500.50189, L500.97817 #### [facility] [place] [id number] Chloride [Moles/Vol] 107 mmol/L Normal 98-107 [facility] Comment on above: Performed By: #### L 500.72014, L500.71189, L500.67803, L500.32144 #### [facility] [address] [place] [address] CO2 [Moles/Vol] 27.0 mmol/L Normal 21-32 [facility] Comment on above: Performed By: #### L 500.33192, L500.35050, L500.55543, L500.17562 #### [facility] [address] [place] [address] Creatinine [Mass/Vol] 0.62 mg/dL Normal 0.510-0.95 0 [facility] Comment on above: Result Comment: Brisa ents receiving either N-Acetylcysteine (NAC) or Metamizole prior to venipuncture, may have falsely depressed results. Performed By: #### L 500.41309, L500.35876, L500.56449, L500.39612 #### [facility] [address] [place] [address] Globulin (S) [Mass/Vol] 3.6 g/dL Normal 2.2-4.2 [facility] Comment on above: Performed By: #### L 500.43878, L500.28710, L500.61312, L500.82813 #### [facility] [place] [address] Glucose [Mass/Vol] 83 mg/dL Normal 70-100 [facility] Comment on above: Result Comment: 70-1 00- Normal Fasting; 100-125 Impaired Fasting; greater than 126 on more than one result- Diabetes. ADA guidelines. Results may be falsely elevated after the administration of Sulfapyridine. Results may be falsely depressed after the administration of Sulfasalazine. Performed By: #### L 500.85270, L500.38460, L500.29713, L500.24053 #### [facility] [place] [address] Potassium [Moles/Vol] 4.8 mmol/L Normal 3.5-5.1 [facility] Comment on above: Performed By: #### L 500.32132, L500.03408, L500.25896, L500.51365 #### [facility] [address] [place] [address] Protein [Mass/Vol] 7.4 g/dL Normal 6.0-8.5 [facility] Comment on above: Performed By: #### L 500.44553, L500.81713, L500.56262, L500.10840 #### [facility] [address] [place] [address] Sodium [Moles/Vol] 140 mmol/L Normal 136-145 [facility] Comment on above: Performed By: #### L 500.70277, L500.79683, L500.57505, L500.68159 #### [facility] [facility] [address] [place] [address] Urea nitrogen [Mass/Vol] 10 mg/dL Normal 7-26 [facility] Comment on above: Performed By: #### L 500.52162, L500.20686, L500.44462, L500.06827 #### [facility] [address] [place] [address] Urea nitrogen/Creatinin e [Mass ratio] 16 mg/mg Normal 15-24 [facility] Comment on above: Performed By: #### L 500.88999, L500.70330, L500.77582, L500.77673 #### [facility] [address] [place] [address] GFR ESTon 11-01-2020 IF AMER Greater than 60 Normal [facility] Comment on above: Performed By: #### L 500.65498, L500.81866 #### [facility] [address] [place] [address] IF non-AFR AMER Greater than 60 Normal [facility] Comment on above: Performed By: #### L 500.05208, L500.07277 #### [facility] [address] [place] [address] LIPIDon 11-01-2020 CHOL 126 MG/dL Normal 0-199 [facility] Comment on above: Performed By: #### L 500.08210, L500.21812 #### [facility] [address] [place] [address] Cholesterol in HDL [Mass/Vol] 68 mg/dL Normal GREATER THAN 40 [facility] Comment on above: Result Comment: Brisa ents receiving Metamizole prior to venipuncture, may have falsely depressed results. Performed By: #### L 500.16592, L500.97379 #### [facility] [address] [place] [address] Cholesterol in LDL [Mass/Vol] 53 mg/dL Normal [facility] Comment on above: Result Comment: ___C HOLESTEROL/HDL RATIO RISK___ CHD RISK = Total CHOL LDL HDL (CHOL/HDL) Recommended <200 <130 >40 <3.4 Borderline 200-239 130-159 3.4-4.99 High >240 >160 >5.0 Performed By: #### L 500.68078, L500.51340 #### [facility] [place] [id number] Triglyceride [Mass/Vol] 25 mg/dL Low 30-149 [facility] Comment on above: Result Comment: Brisa ents receiving either N-Acetylcysteine (NAC) or Metamizole prior to venipuncture, may have falsely depressed results. Performed By: #### L 500.30331, L500.11906 #### [facility] [address] [place] [address] TSHon 11-01-2020 TSH 0.630 UIU/ML Normal 0.358-3.74 0 [facility] Comment on above: Result Comment: 3rd generation ultra sensitive TSH Performed By: #### L 500.90924, L500.37424 #### [facility] [place] [address] UA COMPLETEon 11-01-2020 Color (U) Yellow Normal [facility] Comment on above: Performed By: #### L 600.49249 #### [facility] [place] [address] Glucose (U) [Mass/Vol] Negative Normal NORMAL [facility] Comment on above: Performed By: #### L 600.06843 #### [facility] [address] [place] [address] UA APPEARANCE Clear Normal CLEAR [facility] Comment on above: Performed By: #### L 600.72580 #### [facility] [address] [place] [address] UA BILIRUBIN Negative Normal NEGATIVE [facility] Comment on above: Performed By: #### L 600.73250 #### [facility] [address] [place] [address] UA BLOOD Negative Normal NEGATIVE [facility] Comment on above: Performed By: #### L 600.18032 #### [facility] [address] [place] [address] UA KETONE 5 Normal NEGATIVE [facility] Comment on above: Performed By: #### L 600.80017 #### [facility] [address] [place] [address] UA LK ESTERASE Negative Normal NEGATIVE [facility] Comment on above: Performed By: #### L 600.69619 #### [facility] [address] [place] [address] UA NITRITE Negative Normal NEGATIVE [facility] Comment on above: Performed By: #### L 600.50502 #### [facility] [address] [place] [address] UA PH 6.0 Normal 5-6 [facility] Comment on above: Performed By: #### L 600.25799 #### [facility] [address] [place] [address] UA PROTEIN Negative Normal NEGATIVE [facility] Comment on above: Performed By: #### L 600.64991 #### [facility] [address] [place] [address] UA SPEC GRAV 1.015 Normal 1.005-1.03 0 [facility] Comment on above: Performed By: #### L 600.58283 #### [facility] [address] [place] [address] UA UROBILINOGEN Negative Normal NORMAL [facility] Comment on above: Performed By: #### L 600.71213 #### [facility] [address] [place] [address] CBC W/DIFFon 10-31-2020 BASO ABS 0.10 K/CU MM Normal 0-0.2 [facility] Comment on above: Performed By: #### L 200.30419 #### [facility] [address] [place] [address] Basophils/100 WBC (Bld) 0.6 % Normal 0-2 [facility] Comment on above: Performed By: #### L 200.31968 #### [facility] [address] [place] [address] EOS ABS 0.00 K/CU MM Normal 0-0.5 [facility] Comment on above: Performed By: #### L 200.45255 #### [facility] [address] [place] [address] Eosinophils/100 WBC (Bld) 0.4 % Normal 0-5 [facility] Comment on above: Performed By: #### L 200.07735 #### [facility] [address] [place] [address] Erythrocyte distribution width (RBC) [Ratio] 11.9 % Normal 11-14.5 [facility] Comment on above: Performed By: #### L 200.35373 #### [facility] [address] [place] [address] Hematocrit (Bld) [Volume fraction] 41.3 % Normal 35.0-47.0 [facility] Comment on above: Performed By: #### L 200.10884 #### [facility] [address] [place] [address] Hemoglobin (Bld) [Mass/Vol] 13.4 g/dL Normal 11.5-15.5 [facility] Comment on above: Performed By: #### L 200.38059 #### [facility] [address] [place] [address] IMMATR GRAN ABS 0.00 K/CU MM Normal Less than 2 [facility] Comment on above: Performed By: #### L 200.63934 #### [facility] [address] [place] [address] IMMATURE GRAN % 0.4 % Normal Less than 2 [facility] Comment on above: Performed By: #### L 200.27426 #### [facility] [address] [place] [address] LYMPH ABS 2.50 K/CU MM Normal 0.9-4.4 [facility] Comment on above: Performed By: #### L 200.84136 #### [facility] [address] [place] [address] Lymphocytes/100 WBC (Bld) 23.4 % Normal 20-40 [facility] Comment on above: Performed By: #### L 200.55723 #### [facility] [address] [place] [address] MCHC (RBC) [Mass/Vol] 32.4 g/dL Normal 32.0-36.0 [facility] Comment on above: Performed By: #### L 200.62179 #### [facility] [address] [place] [address] MCV (RBC) [Entitic vol] 87.9 fL Normal 80.0-99.0 [facility] Comment on above: Performed By: #### L 200.05292 #### [facility] [place] [address] MONO ABS 0.60 K/CU MM Normal 0.1-1.1 [facility] Comment on above: Performed By: #### L 200.76513 #### [facility] [place] [address] Monocytes/100 WBC (Bld) 5.4 % Normal 2-10 [facility] Comment on above: Performed By: #### L 200.20406 #### [facility] [address] [place] [address] NEUTROPHIL ABS 7.60 K/CU MM Normal 2.0-8.3 [facility] Comment on above: Performed By: #### L 200.95453 #### [facility] [address] [place] [address] Neutrophils/100 WBC (Bld) 69.8 % Normal 45-75 [facility] Comment on above: Performed By: #### L 200.07805 #### [facility] [address] [place] [address] Nucleated RBC/100 WBC (Bld) [Ratio] 0.0 % Normal Less than 1 [facility] Comment on above: Performed By: #### L 200.11611 #### [facility] [address] [place] [address] Platelet mean volume (Bld) [Entitic vol] 10.1 fL Normal 9.4-12.4 [facility] Comment on above: Performed By: #### L 200.22719 #### [facility] [address] [place] [address] PLT 319 K/CU MM Normal 150-450 [facility] Comment on above: Performed By: #### L 200.82799 #### [facility] [address] [place] [address] RBC 4.70 M/CU MM Normal 3.90-5.30 [facility] Comment on above: Performed By: #### L 200.83577 #### [facility] [place] [address] WBC 10.9 K/CUMM Normal 4.5-11.0 [facility] Comment on above: Performed By: #### L 200.01515 #### [facility] [address] [place] [address] BMPon 10-20-2020 Anion gap [Moles/Vol] 3 mmol/L Low 5-16 [facility] Comment on above: Order Comment: Campu s: M Performed By: #### L 500.84026, L500.63160 #### [facility] [address] [place] [address] Calcium [Mass/Vol] 10.0 mg/dL Normal 8.5-10.5 [facility] Comment on above: Order Comment: Campu s: M Result Comment: NOTE NEW NORMAL RANGE DUE TO REAGENT CHANGE Performed By: #### L 500.22818, L500.04968 #### [facility] [address] [place] [address] Chloride [Moles/Vol] 106 mmol/L Normal 98-107 [facility] Comment on above: Order Comment: Campu s: M Performed By: #### L 500.80561, L500.88635 #### [facility] [address] [place] [address] CO2 [Moles/Vol] 31.0 mmol/L Normal 21-32 [facility] Comment on above: Order Comment: Campu s: M Performed By: #### L 500.49596, L500.21296 #### [facility] [address] [place] [address] Creatinine [Mass/Vol] 0.66 mg/dL Normal 0.510-0.95 0 [facility] Comment on above: Order Comment: Campu s: M Result Comment: Brisa ents receiving either N-Acetylcysteine (NAC) or Metamizole prior to venipuncture, may have falsely depressed results. Performed By: #### L 500.10005, L500.19319 #### [facility] [address] [place] [address] Glucose [Mass/Vol] 129 mg/dL High 70-100 [facility] Comment on above: Order Comment: Campu s: M Result Comment: 70-1 00- Normal Fasting; 100-125 Impaired Fasting; greater than 126 on more than one result- Diabetes. ADA guidelines. Results may be falsely elevated after the administration of Sulfapyridine. Results may be falsely depressed after the administration of Sulfasalazine. Performed By: #### L 500.39631, L500.54787 #### [facility] [address] [place] [address] Potassium [Moles/Vol] 4.6 mmol/L Normal 3.5-5.1 [facility] Comment on above: Order Comment: Campu s: M Performed By: #### L 500.15314, L500.08560 #### [facility] [address] [place] [address] Sodium [Moles/Vol] 140 mmol/L Normal 136-145 [facility] Comment on above: Order Comment: Campu s: M Performed By: #### L 500.10794, L500.77200 #### [facility] [address] [place] [address] Urea nitrogen [Mass/Vol] 10 mg/dL Normal 7-26 [facility] Comment on above: Order Comment: Campu s: M Performed By: #### L 500.71329, L500.69226 #### [facility] [address] [place], [place] [address] Urea nitrogen/Creatinin e [Mass ratio] 15 mg/mg Normal 15-24 [facility] Comment on above: Order Comment: Titus s: M Performed By: #### L 500.92604, L500.50410 #### [facility] [address] [phone] EKGon 10-20-2020 Electrocardiogram Procedure Date and T maria luz: 10/20/20 1410 Test Reason : STAT Blood Pressure : / mmHG Vent. Rate : 063 BPM Atrial Rate : 063 BPM P-R Int : 168 ms QRS Dur : 090 ms QT Int : 442 ms P-R-T Axes : 050 041 032 degrees QTc Int : 452 ms Normal sinus rhythm with sinus arrhythmia Normal ECG No previous ECGs available Confirmed by SHANA CULLEN A. ([id number]) on 10/20/2020 3:21:09 PM Referred By: Nicola Ching Confirmed By:Jose CULELN M.D.FACC Merissa DDandT: 10/20/20 1410 TDandT: [facility] PAT[facility] NAME[facility] [address] Mora MEDICAL REC #: [id number] [place] [address] ADMIT DATE: DISCHARGE DATE: ATTENDING PHY: Darryn Ferreira,Emergency Physi ELECTROCARDIOGRAM REPORT CLB cc: [facility] PATIENT NAME: ENMANUEL CARDENAS [facility] [address] [place]a MEDICAL REC #: [id number] [place] [address] ADMIT DATE: DISCHARGE DATE: ATTENDING PHY: Darryn Ferreira,Emergency Physi ELECTROCARDIOGRAM REPORT Normal [facility] Pablo 10-20-2020 EMERGENCY PHYSICIAN REPORT This is a preliminary report only, as the practitioner review and authentication has not occurred. Normal [facility] ER PHYSICIAN ASSESSMENT RECORDS : Discharge Report Event Time: 10/20/2020 15:13 : FlexChartData Event Time: 10/20/2020 15:45 Status: Signed [facility] Enmanueltiffanie Cardenas [[id number]] Attending Physician / 1995 Chart (V2b) Chart created at 10/20/2020 15:08 by Nicola Ching Chart closed at 10/20/2020 15:12 Entry in Emergency Department at 10/20/2020 13:14, departure at 10/20/2020 15:41 Patient Name: Enmanuel Cardenas Record Number: [id number] Date: 10/20/2020 15:08 Entered Department at: 10/20/2020 13:14 Patient Seen at: 10/20/2020 13:23 Historian: Patient PCP: Dr. Echeverria Chief Complaint:PT LIGHTHEADED WHILE WORKING OUTSIDE. NO LOC. PT STATES WAITING FOR BLOOD TEST RESULT FOR POSSIBLE Triage Note reviewed and Initial Vital Signs reviewed. Temperature: 98.1 F (36.7 C). Pulse: 62. Respiratory Rate: 18. Blood-pressure: 168/95. Oxygen Saturation: 100% room air; Normal. History of Present Illness: Is a 25-year-old female is sent in for evaluation from work. Patient had some issues with some intermittent dizzy what sounds like presyncopal spells. Seems to occur somewhat frequently when she is [facility] PATIENT NAME: ENMANUEL CARDENAS [address] [facility] MED[facility] REC #: [id number] [place] [address] EMERGENCY DEPARTMENT REPORT EMERGENCY DEPARTMENT PHYSICIAN gets overheated. She has been process of working with her primary care physician for outpatient evaluation for the symptoms. They have been going on intermittently for several years now. She was evaluated for this similar complaint several months ago. She was outside today at work very high humidity day temperatures near 90. She started to get dizzy and lightheaded and started to feel weak. She was sent in for evaluation. She does feel a bit better at this time. Does not sound like she was truly syncopal. No palpitations. No chest pain. She did have labs performed by her primary care physician notably of test and she had not heard those results. I have reviewed what was available in she did have a negative test earlier this month and result was relayed to her. Review of Systems. All other systems reviewed and negative.. Past History, Medications, Allergies, Social History and Family History reviewed in nurses note. Past Medical History: History of: Anxiety Disorder. Medications: Reviewed RN Note. None Allergies: Reviewed RN Note Sulfa(Unknown) Social History: Reviewed RN Note. Tobacco: None. Family History: Reviewed RN Note Physical Examination: General: Alert and Well Developed; Patient was initially standing at the doorway to her room as she was asking to use the restroom. She did ambulate to the restroom and back without any difficulties. HEENT: Head: Atraumatic. Eyes: PERRL; . Neck: Supple Respiratory: No Resp Distress and Normal Breath Sounds Cardio-Vascular: RRR Abdomen: Non-tender and Soft Extremity: No edema Neurological: Alert, Oriented X3, Normal Gait, Cranial Nerves 2-12 Normal, Speech [facility] PATIENT NAME: ENMANUEL CARDENAS [address] [facility] [address] Mora MEDICAL REC #: [id number] [place] [address] EMERGENCY DEPARTMENT REPORT EMERGENCY DEPARTMENT PHYSICIAN Normal and 5/5 UE/LE Strength Skin: Warm and Dry Psychological: Mood/Affect Normal BMP, information as of 10/20/2020, 2:07 pm 140 --------+--------+--------andlt ; 129* Anion Gap = Less Than 3 4.6 alert_gap= 3 BUN/CREA: 15; CALCIUM TOTAL: 10.0 Mg/Dl Cardiogram: Interpreted by me. Rate: 63 bpm. Rate NormalRhythm Sinus RhythmAxis NormalIntervals NormalQRS NormalST/T Normal Interpretation: Normal. QTC is normal. No evidence of Brugada syndrome Comparison: No old Cardiogram available for comparison Monitor / Rhythm Strip: NSR Medical Decision Making 25-Year-old female with sent back in for reevaluation with acute was felt like presyncopal episode. The sound like she may have gotten overheated that precipitated this. Neurologically she is intact. She was given IV fluids. I did check chemistries and an EKG today to monitor for prolonged QTC and/or Brugada syndrome that may be contributory to her presyncope. Her work-up is been reviewed. She has been reevaluated. She does rest comfortably on reevaluation. No acute findings have been identified. At this time I think she can be safely discharged home. She is can follow-up with her primary care physician for further outpatient evaluation. I do think she is okay to return to work at this time. Patient and family are agreeable. Additional Information: Discussed Results, Diagnosis and Follow-Up with Patient. Clinical Impression: 1. A (more content not included)... Normal [facility] GFR ESTon 10-20-2020 IF AMER Greater than 60 Normal [facility] Comment on above: Order Comment: Titus s: M Performed By: #### L 500.26917, L500.17183 #### [facility] [address] [place] [address] IF non-AFR AMER Greater than 60 Normal [facility] Comment on above: Order Comment: Titus s: M Performed By: #### L 500.38041, L500.40999 #### [facility] [address] [place] [address] HCGon 10-11-2020 HCG SER RESULT Negative Normal NEGATIVE [facility] Comment on above: Performed By: #### L 500.24015 #### [facility] [address] [place] [address] BMPon 09-13-2020 Anion gap [Moles/Vol] 7 mmol/L Normal 5-16 [facility] Comment on above: Order Comment: Campu s: M Performed By: #### L 500.05324, L500.35348 #### [facility] [address] [place] [address] Calcium [Mass/Vol] 9.5 mg/dL Normal 8.5-10.5 [facility] Comment on above: Order Comment: Campu s: M Result Comment: NOTE NEW NORMAL RANGE DUE TO REAGENT CHANGE Performed By: #### L 500.99592, L500.48953 #### [facility] [address] [place] [address] Chloride [Moles/Vol] 108 mmol/L High 98-107 [facility] Comment on above: Order Comment: Campu s: M Performed By: #### L 500.61775, L500.57561 #### [facility] [address] [place] [address] CO2 [Moles/Vol] 25.0 mmol/L Normal 21-32 [facility] Comment on above: Order Comment: Campu s: M Performed By: #### L 500.79195, L500.29255 #### [facility] [address] [place] [address] Creatinine [Mass/Vol] 0.67 mg/dL Normal 0.510-0.95 0 [facility] Comment on above: Order Comment: Campu s: M Result Comment: Brisa ents receiving either N-Acetylcysteine (NAC) or Metamizole prior to venipuncture, may have falsely depressed results. Performed By: #### L 500.47478, L500.85157 #### [facility] [place] [id number] Glucose [Mass/Vol] 93 mg/dL Normal 70-100 [facility] Comment on above: Order Comment: Campu s: M Result Comment: 70-1 00- Normal Fasting; 100-125 Impaired Fasting; greater than 126 on more than one result- Diabetes. ADA guidelines. Results may be falsely elevated after the administration of Sulfapyridine. Results may be falsely depressed after the administration of Sulfasalazine. Performed By: #### L 500.14936, L500.32092 #### [facility] [address] [place] [address] Potassium [Moles/Vol] 3.9 mmol/L Normal 3.5-5.1 [facility] Comment on above: Order Comment: Campu s: M Performed By: #### L 500.51233, L500.80349 #### [facility] [address] [place] [address] Sodium [Moles/Vol] 140 mmol/L Normal 136-145 [facility] Comment on above: Order Comment: Campu s: M Performed By: #### L 500.84707, L500.84488 #### [facility] [address] [place] [address] Urea nitrogen [Mass/Vol] 12 mg/dL Normal 7-26 [facility] Comment on above: Order Comment: Campu s: M Performed By: #### L 500.21937, L500.28396 #### [facility] [address] [place], [place] [address] Urea nitrogen/Creatinin e [Mass ratio] 18 mg/mg Normal 15-24 [facility] Comment on above: Order Comment: Campu s: M Performed By: #### L 500.43006, L500.77873 #### [facility] [address] [place], [place] [address] Pablo 09-13-2020 EMERGENCY PHYSICIAN REPORT This is a preliminary report only, as the practitioner review and authentication has not occurred. Normal [facility] ER PHYSICIAN ASSESSMENT RECORDS : FlexChartData Event Time: 09/13/2020 15:05 Status: Signed [facility] Enmanuel Cardenas [[id number]] Attending Physician 1995 Addendum (V2b) Chart created at 09/13/2020 14:32 by Braden Williamson Chart closed at 09/13/2020 14:32 Entry in Emergency Department at 09/13/2020 12:45, departure at 09/13/2020 14:58 Patient Name: Enmanuel Cardenas Record Number: [id number] Date: 09/13/2020 14:32 Entered Department at: 09/13/2020 12:45 Patient Seen at: 09/13/2020 13:01 PCP: *None,. Chief Complaint:Near Syncopal, working in heat became light headed, had energy drink this AM with water. EMS run report reviewed (not applicable for EMT squads).. Patient transported to ED by EMS with medical direction by [facility] physician (not applicable for EMT squads) .. : Discharge Report Event Time: 09/13/2020 14:31 : FlexChartData Event Time: 09/13/2020 15:05 Status: Signed [facility] Enmanuel Fernándeziott [[id number]] [facility] PATIENT NAME: ENMANUEL CARDENAS [address] MEDICAL REC #: [id number] [place] [address] EMERGENCY DEPARTMENT REPORT EMERGENCY DEPARTMENT PHYSICIAN Attending Physician 1995 Chart (V2b) Chart created at 09/13/2020 14:27 by Braden Williamson Chart closed at 09/13/2020 14:30 Entry in Emergency Department at 09/13/2020 12:45, departure at 09/13/2020 14:58 Patient Name: Enmanuel Cardenas Record Number: [id number] Date: 09/13/2020 14:27 Entered Department at: 09/13/2020 12:45 Patient Seen at: 09/13/2020 13:01 Historian: EMS and Patient PCP: *None,. Chief Complaint:Near Syncopal, working in heat became light headed, had energy drink this AM with water. Triage Note reviewed and Initial Vital Signs reviewed. Temperature: 98.3 F (36.8 C). Pulse: 64. Respiratory Rate: 18. Blood-pressure: 140/83. Oxygen Saturation: 100%. History of Present Illness: Patient brought in by EMS, she was at work and had a [employer] working outside she became overheated and had a near syncopal event. There is no definitive syncope. Patient states is happened several times in the past couple years and she works outside. Her blood sugar was checked it was 102. She denies any complaints at the present time, she is actively drinking fluids and has no complaints of palpitations, chest pain or trouble breathing. She had no abnormal vital signs in the prehospital setting HPI Elements: Onset: Hours ago; Timing: Sudden Onset; Quality: Aching and Dull; Severity: maximum Moderate, now Moderate; Context: At Rest; Exacerbated by: Nothing; Alleviated by: Nothing Review of Systems. Constitutional: negative for Fever Eyes: negative for Eye Pain Ear/Nose/Throat: [facility] PATIENT NAME: ENMANUEL CARDENAS [address] [facility] [address] MEDICAL REC #: [id number] [place] [address] EMERGENCY DEPARTMENT REPORT EMERGENCY DEPARTMENT PHYSICIAN negative for Sore Throat Cardio-Vascular: positive for Syncope, negative for Chest Pain Respiratory: negative for Hemoptysis GI: negative for Abd. Pain : negative for Hematuria Musculo-Skeletal: negative for Back Pain Neurological: negative for Headache Hem/Endo: negative for Bleeding Immunology: negative for Joint Pain Past History, Medications, Allergies, Social History and Family History reviewed in nurses note. Medications: Reviewed RN Note. Iron PRN Allergies: Reviewed RN Note Sulfa(Unknown) Social History: Reviewed RN Note. Family History: Reviewed RN Note Physical Examination: General: Alert and Well Developed; Resting comfortably, appears in no distress HEENT: Normal ENT inspection. Neck: Supple Respiratory: No Resp Distress Cardio-Vascular: RRR Abdomen: Non-tender and Soft Back: Non-tender Extremity: No edema Neurological: No Gross Weakness Skin: Warm and Dry Psychological: Mood/Affect Normal BMP, information as of 09/13/2020, 1:40 pm 140 --------+--------+--------andlt ; 93 Anion Gap = 7 3.9 BUN/CREA: 18; CALCIUM TOTAL: 9.5 Mg/Dl Cardiogram: Monitor / Rhythm Strip: NSR: graphics specialist needed in light of the patients symptoms Medical Decision Making Patient was given IV fluids, p.o. fluids, her electrolytes are normal, she has no complaints. She is certainly prone to vasomotor near syncope likely heat related. Will be given follow-up instructions and [facility] PATIENT NAME: ENMANUEL CARDENAS [address] [facility] [address] MEDICAL REC #: [id number] [place] [address] EMERGENCY DEPARTMENT REP (more content not included)... Normal [facility] [place] GFR ESTon 09-13-2020 IF AMER Greater than 60 Normal [facility] Comment on above: Order Comment: Campu s: M Performed By: #### L 500.53399, L500.14589 #### [facility] [address] [place] [address] IF non-AFR AMER Greater than 60 Normal [facility] Comment on above: Order Comment: Titus s: M Performed By: #### L 500.36181, [id number] #### [facility] [address] [place] [address] Vital Signs Date Time Vital Sign Value Performing Clinician Facility 06-30-2023 22:35-0400 Blood Pressure Cuff Size CANDI CONTRERAS DO [facility] 06-30-2023 22:35-0400 Blood Pressure Location CANDI CONTRERAS DO [facility] 06-30-2023 22:35-0400 Blood Pressure Method CANDI CONTRERAS DO [facility] 06-30-2023 22:35-0400 Diastolic Blood Pressure Non-Invasive 88 mm[Hg] CANDI SOLISKA DO [facility] 06-30-2023 22:35-0400 Heart rate 68 /min CANDI SOLISKA DO [facility] 06-30-2023 22:35-0400 Respiratory rate 14 /min CANDI CONTRERAS DO [facility] 06-30-2023 22:35-0400 Systolic Blood Pressure Non-Invasive 138 mm[Hg] CANDI SOLISKA DO [facility] 06-30-2023 18:48-0400 Body temperature 97.52 [degF] CANDI SOLISKA DO [facility] 06-30-2023 18:48-0400 Body weight 122.1 kg CANDI CONTRERAS DO [facility] 06-30-2023 18:48-0400 Diastolic Blood Pressure Non-Invasive 80 mm[Hg] CANDI CONTRERAS DO [facility] 06-30-2023 18:48-0400 Heart rate 92 /min CANDI CONTRERAS DO [facility] 06-30-2023 18:48-0400 Respiratory rate 16 /min CANDI CONTRERAS DO [facility] 06-30-2023 18:48-0400 Systolic Blood Pressure Non-Invasive 162 mm[Hg] CANDI CONTRERAS DO [facility] 10-29-2022 20:56-0400 Diastolic blood pressure 110 mm[Hg] Emily Silva MD Work Phone: [facility] [employer] 10-29-2022 20:56-0400 Heart rate 72 /min Emily Silva MD Work Phone: [employer] 10-29-2022 20:56-0400 Respiratory rate 15 /min Emily Silva MD Work Phone: [facility] [employer] 10-29-2022 20:56-0400 SaO2% (BldA) [Mass fraction] 100 % Emily Silva MD Work Phone: [facility] [employer] 10-29-2022 20:56-0400 Systolic blood pressure 158 mm[Hg] Emily Silva MD Work Phone: [employer] 10-29-2022 17:50-0400 Body temperature 97.11 [degF] Emily Silva MD Work Phone: [facility] [employer] 10-29-2022 15:21-0400 Body weight 117.94 kg Emily Silva MD Work Phone: [facility] [employer] 05-08-2022 12:58-0500 Diastolic Blood Pressure Non-Invasive 95 1 ASHTYN LION MD [facility] 05-08-2022 12:58-0500 Heart rate 98 /min ASHTYN LION MD [facility] 05-08-2022 12:58-0500 Respiratory rate 18 /min ASHTYN LION MD [facility] 05-08-2022 12:58-0500 Systolic Blood Pressure Non-Invasive 154 1 ASHTYN LION MD [facility] 05-08-2022 10:34-0500 Body height 170.2 cm ASHTYN LION MD [facility] 05-08-2022 10:34-0500 Body temperature 98.78 [degF] ASHTYN LION MD [facility] 05-08-2022 10:34-0500 Body weight 127.3 kg ASHTYN LION MD [facility] 05-08-2022 10:34-0500 Diastolic Blood Pressure Non-Invasive 77 1 ASHTYN LION MD [facility] 05-08-2022 10:34-0500 Heart rate 66 /min ASHTYN LION MD [facility] 05-08-2022 10:34-0500 Respiratory rate 16 /min ASHTYN LION MD [facility] 05-08-2022 10:34-0500 Systolic Blood Pressure Non-Invasive 137 1 ASHTYN LION MD [facility] 05-08-2022 09:16-0500 Body temperature 99 [degF] Kayode Rapp PA-C Work Phone: [facility] 05-08-2022 09:16-0500 Body weight 126.1 kg Kayode Albertoalo PA-C Work Phone: [facility] 05-08-2022 09:16-0500 Diastolic blood pressure 81 mm[Hg] Kayode Albertoalo PA-C Work Phone: [facility] 05-08-2022 09:16-0500 Heart rate 64 /min Kayode Albertoalo PA-C Work Phone: [facility] 05-08-2022 09:16-0500 Respiratory rate 22 /min Kayode Albertoalo PA-C Work Phone: [facility] 05-08-2022 09:16-0500 SaO2% (BldA) [Mass fraction] 100 % Kayode Albertoalo PA-C Work Phone: [facility] 05-08-2022 09:16-0500 Systolic blood pressure 137 mm[Hg] Kayode Albertoalo PA-C Work Phone: [facility] Encounters Encounter Date Encounter Type Care Provider Facility Start: 11-22-2023 End: 11-22-2023 ambulatory NONE PHYSICIAN Facility:[facility] Start: 10-14-2023 End: 10-14-2023 ambulatory MD NO PRIMARY CARE [facility] Start: 06-30-2023 End: 07-01-2023 Emergency department patient visit CANDI CONTRERAS Facility:B Start: 06-30-2023 End: 06-30-2023 Emergency department patient visit CANDI CONTRERAS [facility] Start: 10-29-2022 End: 10-29-2022 Emergency department patient visit [facility] Start: 10-29-2022 End: 10-29-2022 Emergency department patient visit Emily Silva MD Work Phone: [facility] Comment on above: Foreign body of righ t eye, initial encounter (Primary Dx) Start: 10-29-2022 Documentation procedure Александр Rinaldi Work Phone: [facility] Comment on above: Eye Pain Start: 05-08-2022 End: 05-08-2022 ambulatory KAYODE RAPP Facility:[id number] Start: 05-08-2022 End: 05-08-2022 Emergency department patient visit ASHTYN LION MD [facility] Start: 05-08-2022 End: 05-08-2022 Office outpatient visit 15 minutes Kayode Rapp PA-C Work Phone: [facility] Comment on above: , unspecifi ed gestational age (Primary Dx); Pelvic pain; Vaginal bleeding Start: 01-01-2021 Patient encounter procedure Yumiko Gavin MD Work Phone: [facility] Start: 01-01-2021 Progress Note Yumiko Gavin MD Work Phone: [facility] Procedures Date Procedure Procedure Detail Performing Clinician Start: 10-20-2020 Ecg routine ecg w/le ast 12 lds i&r only Plan of Treatment Date Care Activity Detail Author Start: 2046 Zoster Vaccines (1 of 2) Zoster Vacc everton (1 of 2) [facility] Start: 11-08-2022 Influenza vaccination Influenza Vacc ine (#1) [facility] Start: 03-10-2022 DEPRESSION ASSESSMENT DEPRESSION ASS ESSMENT [facility] Start: 11-08-2021 Influenza vaccination INFLUENZA (#1) [facility] Start: 2017 PAP TESTING PAP TESTING [facility] Start: 2017 Screening for malign ant neoplasm of cervix Pap Smear [facility] Start: 05-29-2015 DTaP/Tdap/Td Vaccine s (1 - Tdap) DTaP/Tdap/Td Vaccines (1 - Tdap) [facility] Start: 05-29-2015 Urine microalbumin profile DTAP,TDAP ,TD (1 - Tdap) [facility] Start: 2014 HEPATITIS C SCREENING HEPATITIS C [facility] Start: 2014 Hepatitis C screening Hepatitis C [facility] Start: 2014 HIV SCREENING HIV SCREENING [facility] Start: 2010 PEDS TO ADULT TRANSI TION ANNUAL ASSESSMENT PEDS TO ADULT TRANSITION ANNUAL ASSESSMENT [facility] Start: 2008 Depression Screening Depression Scre enosbaldo [facility] Start: 2008 PEDS TO ADULT TRANSI TION INITIAL DISCUSSION PEDS TO ADULT TRANSITION INITIAL DISCUSSION [facility] Start: 05-29-2007 HPV VACCINE (1 - 2-d ose series) HPV VACCINE (1 - 2-dose series) [facility] Start: 05-29-2007 HPV Vaccines (1 - 2- dose series) HPV Vaccines (1 - 2-dose series) [facility] Start: 1997 MMR Vaccines (1 of 1 - Standard series) MMR Vaccines (1 of 1 - Standard series) [facility] Start: 1997 Varicella vaccination Varicell a Vaccines (1 of 2 - 2-dose childhood series) [facility] Start: 1996 COVID-19 VACCINE (#1) COVID-19 VACCI NE (#1) [facility] Start: 1996 HEPATITIS B (1 of 3 - 3-dose series) HEPATITIS B (1 of 3 - 3-dose series) [facility] Start: 1996 Hepatitis B Vaccines (1 of 3 - 3-dose series) Hepatitis B Vaccines (1 of 3 - 3-dose series) [facility] Start: 1996 HIV screening HIV Screening [place] Payers Date Payer Category Payer Unknown [id number] 2023 Unknown [id number] 2022 Unknown [id number] 2022 Worker's Compensation [employer] [id number] 2022-Present [id number] [place] [address] Worker's Comp [id number] 1996 Unknown [id number] 1996 Unknown [id number] 1996 Unknown [id number] Unknown [id number] Social History Date Type Detail [facility] Start: 1996 Sex Assigned At Not on file C [facility] Start: 05-08-2022 End: 10-29-2022 Tobacco smoking status MIIS Never smoked tobacco [facility] Start: 05-08-2022 End: 10-29-2022 Tobacco use and exposure Smokeless tobacco non-user [facility] Start: 05-08-2022 Alcohol intake Current drinke r of alcohol (finding) [facility] Start: 05-08-2022 Alcohol Comment once a month [facility] Start: 10-29-2022 History of Social function [facility] Start: 10-29-2022 Tobacco use panel [facility] Start: 10-19-2022 End: 10-29-2022 Exposure to SARS-CoV-2 (event) Not sure [facility] Medical Equipment Procedure Code Equipment Code Equipment Origin al Text Equipment Identifier Dates fluorescein 1 MG ophthalmic strip 1 strip [id number] Start: 10-29-2022 End: 10-29-2022 Functional Status Date Assessment Result Facility 06-30-2023 Functional Status [facility] 06-30-2023 Functional Status Standard Safet y ID band on, Allergy Band on, Call device within reach, Bed in low position, Wheels locked [facility] 05-08-2022 Functional Status [facility] 05-08-2022 Functional Status ID band on, Allergy Band on, Call device within reach, Bed in low position, Wheels locked, Visitor at bedside [facility] Mental Status Date Assessment Result Facility 06-30-2023 Mental Status Orientation Oriented x 4 [facility] 06-30-2023 Mental Status [facility] 05-08-2022 Mental Status Orientation Oriented x 4 [facility] 05-08-2022 Mental Status [facility] Clinical Notes 01-01-2021 to 07-01-2023 Brigette MALDONADO Taylor - 10/29/2022 9:05 PM Perrijamel Taylor RN - 10/29/2022 9:05 PM Nivia Donovan RN - 10/29/2022 8:56 PM Nivia Donovan RN - 10/29/2022 8:56 PM EDT Note Date & Type Note Facility 07-01-2023 Hospital Discharge instructions Patient Education 06/30/2023 22:32:21 Bleeding During Early Bleeding During Early Ultrasound can help check the health of your fetus. If you ve had bleeding early in your , you re not alone. Many other women have had early bleeding, too. And in most cases, nothing is wrong. But your healthcare provider still needs to know about it. He or she may want to do tests to find out why you re bleeding. Call your healthcare provider if you notice bleeding during . What causes early bleeding? The cause of bleeding early in is often unknown. But many factors early on in may lead to bleeding or spotting. These include sexual intercourse, which may cause bleeding in any trimester. Here are some other causes: Implantation of the embryo on the uterine wall Subchorionic hemorrhage (bleeding between the sac membrane and the uterus) Miscarriage Ectopic (tubal) If you notice spotting Spotting (very light bleeding) is the most common type of bleeding in early . If you notice it, call your healthcare provider. Chances are, he or she will tell you that you can care for yourself at home. If tests are needed Depending on how much you bleed, your healthcare provider may ask you to come in for some tests. A pelvic exam, for instance, can help see how far along your is. You also may have an ultrasound or a Doppler test. These imaging tests use sound waves to check the health of your fetus. The ultrasound may be done on your belly or inside your vagina. Your healthcare provider also may order a special blood test. This test compares your hormone levels in blood samples taken 2 days apart. The results can help your healthcare provider learn more about the implantation of the embryo. Your blood type will also need to be checked to evaluate whether you will need to be treated for Rh sensitization. Warning signs If your bleeding doesn t stop or if you notice any of the following, seek medical help right away: Soaking a sanitary pad each hour Bleeding like you re having a period Cramping or severe belly pain Feeling dizzy or faint Tissue passing through your vagina Bleeding at any time after the first trimester Questions you may be asked Though not normal, bleeding early in is common. If you ve noticed any bleeding, you may be concerned. But keep in mind that bleeding alone doesn t mean something is wrong. Call your healthcare provider right away, though. He or she may ask you questions like these to help find the cause of your bleeding: When did your bleeding start? Is your bleeding very light (spotting) or is it like a period? Is the blood bright red or brownish? Have you had sexual intercourse recently? Have you had pain or cramping? Have you felt dizzy or faint? Monitoring your Bleeding will often stop as quickly as it began. Your may go on a normal path again. You may need to make a few extra visits. But you and your baby will most likely be fine. [id number] [employer]. [address] [place] [address]. All rights reserved. This information is not intended as a substitute for professional medical care. Always follow your healthcare professional's instructions. 06/30/2023 22:32:19 Abdominal Pain, Early Abdominal Pain and Early The tests you had show that you are , but the exact cause of your pain isn t clear. Some pain and bleeding are common early in . Often they stop, and you can go on to have a normal and baby. Other times the pain or bleeding can be signs of a miscarriage or ectopic . An ectopic is a very serious problem. At this time it is unclear if your will continue normally, if you will have a miscarriage, or if you could have an ectopic . Below is some information about this. Miscarriage At this time we don t know whether you will have a miscarriage, or if things will clear up and your will continue normally. We understand that this is emotionally difficult. There is little we can say to change the way you feel. But understand that miscarriages are common. About 1 or 2 out of every [address] Some end even before you know you are . This happens for a number of reasons, and usually we never figure out why. It s important you know that it is not your fault. It didn t happen because you did anything wrong. Having sex or exercising does not cause a miscarriage. These activities are usually safe unless you have pain or bleeding or your doctor tells you to stop. Even minor falls won t cause a miscarriage. Miscarriages happen because things were not developing as they were supposed to. No medicine can prevent a miscarriage. Ectopic In a normal , the fertilized egg attaches to the wall of the womb (uterus). In an ectopic or tubal , the fertilized egg attaches outside the uterus, usually in the fallopian tube. Very rarely, the egg attaches to an ovary or somewhere else in the abdomen. An ectopic is much less common than a miscarriage, but it is very serious. The baby cannot survive, and as it grows it can rupture the tube. This can cause internal bleeding and even . Risk factors for an ectopic are: An ectopic in the past Pelvic inflammatory disease, or PID Endometriosis Smoking An IUD Additional tests Because we don t know what s causing your symptoms, you will need more tests to figure out what the problem is. You may need the following. Ultrasound An ultrasound can usually find a normal as early as 4 to 5 weeks along. If the ultrasound does not show the baby inside the uterus, it means one of the following. You have a normal less than 4 weeks along You are having or recently had a miscarriage You have an ectopic Quantitative HCG This test measures the amount of a hormone in your blood. Comparing today's test result to a repeat test in 2 days will show whether you have a normal . Laparoscopy This is a type of surgery. The healthcare provider will put a tube with a light inside your belly (abdomen) to look directly at your pelvic organs. This test is used when it is not safe to wait 2 days for blood test results. Important information If you do have an ectopic , there is a small chance that the growing fetus can tear the fallopian tube. This can cause severe internal bleeding. If this happens, you may have: Sudden severe pain in your lower abdomen Vaginal bleeding Weakness, dizziness, and sometimes fainting If any of these symptoms occur: Call 911or return right away to the hospital. Don't drive yourself. Don't go to your healthcare provider's office or to a clinic. Go to the hospital. Home care Follow these guidelines to help care for yourself at home: Rest until your next exam. Don t do anything strenuous. Eat a light diet with foods that are easy to digest. Don t have sex until your healthcare provider says it s OK. Follow-up care Follow up with your healthcare provider, or as advised. If you were told to have a repeat blood test in 2 days, it s important to get it done. If you had an X-ray or ultrasound, a radiologist will review it. You will be told of any new findings that may affect your care. Call 911 Call 911 if you have any of these: Severe pain and very heavy bleeding Severe lightheadedness, passing out, or fainting Rapid heart rate Trouble breathing Confused or difficulty waking up When to seek medical advice Call your healthcare provider right away if any of these occur: The pain in your abdomen gets worse, either suddenly or gradually. You are dizzy or weak when you stand. You have heavy vaginal bleeding. This means soaking 1 pad an hour for 3 hours. You have vaginal bleeding for more than 5 days. You have repeated vomiting or diarrhea. The pain in your abdomen moves to the lower right. You have blood in your vomit or bowel movements. This will be dark red or black. You have a fever of 100.4 F (38 C) or higher, or as directed by your healthcare provider. [id number] [employer]. [address] [place] [address]. All rights reserved. This information is not intended as a substitute for professional medical care. Always follow your healthcare professional's instructions. Follow Up Care 06/30/2023 18:48:51 With:Follow up with primary care provider Address:Unknown When:2-4 days [facility] 06-30-2023 Note Discharge Instructions Thank you for allowing [place] to assist you with your healthcare needs. The following is important discharge information regarding your hospital visit. Diagnosis from Today's Visit Vaginal bleeding - < 20 wks What to Do Next Instructions from Your Care Team No qualifying data available. Post Acute Orders No qualifying data available. You Need to Schedule the Following Appointments Follow Up with Follow up with primary care provider When Within 2-4 days Allergies sulfa drugs Medications Please ask your primary doctor or pharmacist before taking any other medication not listed, including over the counter drugs, herbal medications, vitamins and or supplements as they may interact with your home medications. Please take this list to your next doctor s visit. Bring all medications you take, including over the counter medications, herbals and other supplements with you to your doctor s visit. Patients and families are reminded to discard old lists and to update any records with all medication providers or retail pharmacies. Education Materials Bleeding During Early Ultrasound can help check the health of your fetus. If you ve had bleeding early in your , you re not alone. Many other women have had early bleeding, too. And in most cases, nothing is wrong. But your healthcare provider still needs to know about it. He or she may want to do tests to find out why you re bleeding. Call your healthcare provider if you notice bleeding during . What causes early bleeding? The cause of bleeding early in is often unknown. But many factors early on in may lead to bleeding or spotting. These include sexual intercourse, which may cause bleeding in any trimester. Here are some other causes: Implantation of the embryo on the uterine wall Subchorionic hemorrhage (bleeding between the sac membrane and the uterus) Miscarriage Ectopic (tubal) If you notice spotting Spotting (very light bleeding) is the most common type of bleeding in early . If you notice it, call your healthcare provider. Chances are, he or she will tell you that you can care for yourself at home. If tests are needed Depending on how much you bleed, your healthcare provider may ask you to come in for some tests. A pelvic exam, for instance, can help see how far along your is. You also may have an ultrasound or a Doppler test. These imaging tests use sound waves to check the health of your fetus. The ultrasound may be done on your belly or inside your vagina. Your healthcare provider also may order a special blood test. This test compares your hormone levels in blood samples taken 2 days apart. The results can help your healthcare provider learn more about the implantation of the embryo. Your blood type will also need to be checked to evaluate whether you will need to be treated for Rh sensitization. Warning signs If your bleeding doesn t stop or if you notice any of the following, seek medical help right away: Soaking a sanitary pad each hour Bleeding like you re having a period Cramping or severe belly pain Feeling dizzy or faint Tissue passing through your vagina Bleeding at any time after the first trimester Questions you may be asked Though not normal, bleeding early in is common. If you ve noticed any bleeding, you may be concerned. But keep in mind that bleeding alone doesn t mean something is wrong. Call your healthcare provider right away, though. He or she may ask you questions like these to help find the cause of your bleeding: When did your bleeding start? Is your bleeding very light (spotting) or is it like a period? Is the blood bright red or brownish? Have you had sexual intercourse recently? Have you had pain or cramping? Have you felt dizzy or faint? Monitoring your Bleeding will often stop as quickly as it began. Your may go on a normal path again. You may need to make a few extra visits. But you and your baby will most likely be fine. 1178-7904 [employer]. [address] [place] [address]. All rights reserved. This information is not intended as a substitute for professional medical care. Always follow your healthcare professional's instructions. Abdominal Pain and Early The tests you had show that you are , but the exact cause of your pain isn t clear. Some pain and bleeding are common early in . Often they stop, and you can go on to have a normal and baby. Other times the pain or bleeding can be signs of a miscarriage or ectopic . An ectopic is a very serious problem. At this time it is unclear if your will continue normally, if you will have a miscarriage, or if you could have an ectopic . Below is some information about this. Miscarriage At this time we don t know whether you will have a miscarriage, or if things will clear up and your will continue normally. We understand that this is emotionally difficult. There is little we can say to change the way you feel. But understand that miscarriages are common. About 1 or 2 out of every [address] Some end even before you know you are . This happens for a number of reasons, and usually we never figure out why. It s important you know that it is not your fault. It didn t happen because you did anything wrong. Having sex or exercising does not cause a miscarriage. These activities are usually safe unless you have pain or bleeding or your doctor tells you to stop. Even minor falls won t cause a miscarriage. Miscarriages happen because things were not developing as they were supposed to. No medicine can prevent a miscarriage. Ectopic In a normal , the fertilized egg attaches to the wall of the womb (uterus). In an ectopic or tubal , the fertilized egg attaches outside the uterus, usually in the fallopian tube. Very rarely, the egg attaches to an ovary or somewhere else in the abdomen. An ectopic is much less common than a miscarriage, but it is very serious. The baby cannot survive, and as it grows it can rupture the tube. This can cause internal bleeding and even . Risk factors for an ectopic are: An ectopic in the past Pelvic inflammatory disease, or PID Endometriosis Smoking An IUD Additional tests Because we don t know what s causing your symptoms, you will need more tests to figure out what the problem is. You may need the following. Ultrasound An ultrasound can usually find a normal as early as 4 to 5 weeks along. If the ultrasound does not show the baby inside the uterus, it means one of the following. You have a normal less than 4 weeks along You are having or recently had a miscarriage You have an ectopic Quantitative HCG This test measures the amount of a hormone in your blood. Comparing today's test result to a repeat test in 2 days will show whether you have a normal . Laparoscopy This is a type of surgery. The healthcare provider will put a tube with a light inside your belly (abdomen) to look directly at your pelvic organs. This test is used when it is not safe to wait 2 days for blood test results. Important information If you do have an ectopic , there is a small chance that the growing fetus can tear the fallopian tube. This can cause severe internal bleeding. If this happens, you may have: Sudden severe pain in your lower abdomen Vaginal bleeding Weakness, dizziness, and sometimes fainting If any of these symptoms occur: Call 911or return right away to the hospital. Don't drive yourself. Don't go to your healthcare provider's office or to a clinic. Go to the hospital. Home care Follow these guidelines to help care for yourself at home: Rest until your next exam. Don t do anything strenuous. Eat a light diet with foods that are easy to digest. Don t have sex until your healthcare provider says it s OK. Follow-up care Follow up with your healthcare provider, or as advised. If you were told to have a repeat blood test in 2 days, it s important to get it done. If you had an X-ray or ultrasound, a radiologist will review it. You will be told of any new findings that may affect your care. Call 911 Call 911 if you have any of these: Severe pain and very heavy bleeding Severe lightheadedness, passing out, or fainting Rapid heart rate Trouble breathing Confused or difficulty waking up When to seek medical advice Call your healthcare provider right away if any of these occur: The pain in your abdomen gets worse, either suddenly or gradually. You are dizzy or weak when you stand. You have heavy vaginal bleeding. This means soaking 1 pad an hour for 3 hours. You have vaginal bleeding for more than 5 days. You have repeated vomiting or diarrhea. The pain in your abdomen moves to the lower right. You have blood in your vomit or bowel movements. This will be dark red or black. You have a fever of 100.4 F (38 C) or higher, or as directed by your healthcare provider. 4752-2719 [employer]. [address] [place] [address]. All rights reserved. This information is not intended as a substitute for professional medical care. Always follow your healthcare professional's instructions. Additional Information VACCINATE! IT SAVES LIVES! Members of the community who have not yet received the COVID-19 vaccine and would like to receive it can visit one of [facility] vaccine clinics. There are many vaccine clinic locations within the [facility]. For locations and available times, please visit www.[email or web address].[place].gov/. It is important to note that some COVID mobile vaccine clinics are held outdoors and may be canceled in rainy or stormy conditions. To learn more about pediatric vaccinations (ages 5-11), we invite you to visit the [facility] webpage. [email or web address]/[email or web address] [email or web address]-[email or web address] To learn more about the COVID-19 vaccine, we invite you to visit the CDC website for a list of frequently asked questions. https://www.cdc.gov/coronavirus/2019-ncov/vaccine s/faq.html [facility] Patient Portal Access Instructions: Stay connected with your healthcare team and access your personal medical information anytime with the [facility] Patient Portal. If you would like a full copy of your medical records please contact the [facility] Medical Records Department Friday through Friday between 8a.m. and 4:30p.m. Please follow the directions below to access the portal: 1.Access the email account you provided upon registration to the [facility].2.Look for an invitation email from [facility].3.Open the email and access the invitation link: Accept Invitation to [facility]4.Fill in the required purvis to create your account. Sign into [email or web address] with your username and password that you created in the above steps to stay up to date. You can then view a summary of results, a summary of your visits, and the ability to download your summaries to your computer or send the information securely to a physician. Remember that your healthcare information is confidential, so carefully consider who you will allow to register on the [facility] Patient Portal for access to your information. You can also access the [facility] Patient Portal on the [employer] [facility]. Simply click on Health Records under Health Data and then click on the [employer] logo. HOW TO SAFELY DISPOSE OF PRESCRIPTION MEDICATIONS Please use one of the following methods to safely dispose of your unused medications. 1.Use a drug disposal kit: the drug disposal pouch allows you to safely discard your old and unused drugs. Ask your nurse to give you one when you are discharged.2.Visit a local take-back location: Many local pharmacies and police departments have programs that collect old and unwanted prescription drugs. Call your local pharmacy or go to http://bit.[employer]/9O1Mx3a to find one close to you.3.Make use of household items: Use cat litter or old coffee grounds to dispose medications if other options are not available. Mix your drugs with these household products, seal them in an airtight container and throw it into the garbage. Call [facility]: [phone] to be sure your drugs can be disposed of in this way. Some medicines may require a different approach.4.Never flush your medications down the toilet. IF YOU HAVE BEEN PRESCRIBED AN OPIOIDS FOR PAIN If you have been prescribed an opioid (such as hydrocodone, oxycodone or morphine), it is critical to understand the possible side effects and risks of opioid pain medications. Even when taken as directed, opioids can have several side effects including: Tolerance, meaning you might need to take more of a medication for the same pain relief. Nausea, vomiting and/or constipation. Sleepiness, dizziness, dry mouth, confusion, depression or itching. Physical dependence, meaning you have withdrawal symptoms when a medication is stopped ? this can develop within a few days. KNOW YOUR RESPONSIBILITIES It is important to know exactly how much and how often to take the opioid pain medications you are prescribed. Never take opioids in higher amounts or more often than prescribed. Do not combine opioids with alcohol or other drugs that cause drowsiness, such as benzodiazepines, also known as benzos, including diazepam and alprazolam, muscle relaxants or sleep aids. Never sell or share prescription opioids. This is illegal. Store opioids in a secure place and out of reach of others (including children, family, friends and visitors). The last page(s) of this document has been signed and retained as a CHART COPY Signatures Patient Education Materials Bleeding During Early Abdominal Pain, Early Medication Leaflets My discharge plan and instructions have been reviewed and explained to me and I,ENMANUEL MACIAS understand my current condition and have read and understand these discharge instructions. I have received a written copy of the plan/instructions. If I have questions, I am aware that I should contact my doctor. Patient/Entry Level Civil Engineer Signature: Date/Time: Relationship to Patient: Witness Name/Signature: Date/Time: [facility] 06-30-2023 Evaluation + Plan note Diagnostic Tests PendingUrine test (LAB) 06/30/23 [facility] 10-29-2022 Emergency department Note Formatting of this note might be differe nt from the original. Pt discharged to home by CIR[facility]. No IV in place. Brigette Taylor RN 10/29/222104 [facility] 10-29-2022 Emergency department Note Formatting of this note might be differe nt from the original. Pt discharged to home by [facility] Vera. No IV in place. Brigette Taylor RN 10/29/222104 Jody TANNER bedside. Devendra Donovan RN 10/29/222055 Pt A+Ox4. Pt has even and equal chest rise. Pt denies any needs at this time. Devendra Donovan RN 10/29/222055 Report given to MALDONADO Templeton, ED nurse credit office manager. Mabel Malloy RN 10/29/22 8838 Pt to go to [facility] ED for further evaluation. Pt left amb in satisfactory to go by private vehicle with ride. Mabel Malloy RN 10/29/22 1807 Pt had urine drug screen done per company policy s/p work injury. Mabel Malloy RN 10/29/22 6418 EMERGENCY DEPARTMENT ENCOUNTER Pt Name: Enmanuel Cardenas Birthdate 1995 Date of evaluation: 10/29/2022 ED Provider: Emily Silva MD CHIEF COMPLAINT Chief Complaint Patient presents with Eye Problem Pt states was at work at [email or web address] and had safety eyewear in place. Possible foreign body or dust in eye at approx 1505 today. HISTORY OF PRESENT ILLNESS (Location/Symptom, Timing/Onset, Context/Setting, Quality, Duration, Modifying Factors, Severity) Note limiting factors. HPI Enmanuel Cardenas is a 27 y.o. female who presents to the emergency department for concern for foreign body in her eye. Patient states that she was at work wearing her safety eyewear and she was working with metal and there was a fan near her to cool her off and something felt like it flew into her right eye. She states that since then she is been having some changes to her vision including brief blurry vision. She feels like she cannot open her eye because he is having a lot of pain. She feels like there is something in there that continues scratching her eye. Denies any other injuries. Nursing Notes were reviewed. REVIEW OF SYSTEMS Review of Systems Pertinent positives and negatives per HPI PAST MEDICAL HISTORY History reviewed. No pertinent past medical history. SURGICAL HISTORY History reviewed. No pertinent surgical history. CURRENT MEDICATIONS Previous Medications No medications on file ALLERGIES Sulfa antibiotics FAMILY HISTORY No family history on file. SOCIAL HISTORY Social History Socioeconomic History Marital status: Single Tobacco Use Smoking status: Never Smokeless tobacco: Never Vaping Use Vaping Use: Never used Substance and Sexual Activity Drug use: Never SCREENINGS PHYSICAL EXAM ED Triage Vitals [10/29/22 1521] Temp Heart Rate Resp BP 36.1 C (97 F) 87 20 (!) 159/106 SpO2 Temp Source Heart Rate Source Patient Position 97 % Infrared -- -- BP Location FiO2 (%) -- -- Physical Exam Uncomfortable appearing female lying in bed. Vital signs were reviewed and are largely unremarkable. Visual acuity was done by nursing and noted in chart. Right eye with some mild irritation. Normal pupil with negative Harinder sign. Some fluorescein uptake to the inner corner of her sclera. Concern for a foreign body underneath the upper eyelid on the medial aspect. No corneal ulcer or abrasion. DIAGNOSTIC RESULTS RADIOLOGY (Per Emergency Physician): Interpretation per the Radiologist below, if available at the time of this note: No orders to display LABS: Labs Reviewed - No data to display All other labs were within normal range or not returned as of this dictation. EMERGENCY DEPARTMENT COURSE and DIFFERENTIAL DIAGNOSIS/MDM: Vitals: Vitals: 10/29/22 1521 BP: (!) 159/106 Pulse: 87 Resp: 20 Temp: 36.1 C (97 F) TempSrc: Infrared SpO2: 97% Weight: 118 kg (260 lb) Medications tetracaine (Altacaine) 0.5 % ophthalmic solution 1-2 drop (has no administration in time range) fluorescein 1 MG ophthalmic strip 1 strip (has no administration in time range) Medical Decision Making Problems Addressed: Foreign body of right eye, initial encounter: complicated acute illness or injury Risk Prescription drug management. 27-year-old female presenting emergency department today for concern for a foreign body in the eye. Patient is afebrile and hemodynamically stable on arrival. Was at work when something flew into her eye. 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 She was wearing her safety goggles at the time but is having some discomfort still to the eye. She states that she feels like there is something scratching her eye and the inner corner of it underneath her upper eyelid. On exam she does have some tearing. Her pupil is normal and reactive. She has decreased visual acuity to the right eye. I am able to see some fluorescein uptake to the inner corner of her sclera and there is what appears to be a foreign body embedded underneath her eyelid medially. Unfortunately do not feel comfortable trying to remove this foreign body so the plan will be to transfer her to [facility] emergency department in order to be evaluated by the pci security consultant there. Patient is agreeable to this. Will be transferred via private vehicle that a coworker will drive. I Emily Silva MD am the epic interface analyst of record. FINAL IMPRESSION 1. Foreign body of right eye, initial encounter DISPOSITION Transfer To [facility] Ed 10/29/2022 03:51:50 PM PATIENT REFERRED TO: No follow-up provider specified. DISCHARGE MEDICATIONS: New Prescriptions No medications on file (Comment: Please note this report has been produced using speech recognition software and may contain errors related to that system including errors in grammar, punctuation, and spelling, as well as words and phrases that may be inappropriate. If there are any questions or concerns please feel free to contact the dictating provider for clarification.) Emily Silva MD (electronically signed) Emergency Medicine Provider Emily Silva MD 10/29/22 1614 Emergency Department Encounter [facility] EMERGENCY DEPT Patient: Enmanuel Cardenas : 1995 Date of Evaluation: 10/29/2022 ED Provider: Hilary Alfred MD I saw the patient as the Clinician in Triage and performed a brief history and physical exam, established acuity, and ordered appropriate tests to develop basic plan of care. Patient will be seen by PAUL, resident and/or my physician partner who will evaluate the patient. If seen by the PAUL I will manage the patient in a supervisory role and will be available for co-management. I did perform a substantive portion of the visit including all aspects of the Medical Decision Making. I wore appropriate PPE for the entirety of this encounter. Brief HPI: In brief, Enmanuel Cardenas is a 27 y.o. female that presents for right eye pain and foreign body sensation. The patient states that she was at work with a fan on and even though she was wearing her safety goggles, she thinks that metal or dust flew into her right eye. Because of decreased visual acuity and a potential foreign body embedded underneath her medial right eyelid, she was transferred from [facility] for an ophthalmology consult. Focused Physical exam: Patient able to open her right eye, EOMI. Plan/MDM: Dr. Rinaldi from ophthalmology was consulted and states that he will be here in about 25 minutes to evaluate the patient. Please see subsequent provider note for further details and disposition Comment: Please note this report has been produced using speech recognition software and may contain errors related to that system including errors in grammar, punctuation, and spelling as well as words and phrases that may be inappropriate. If there are any questions or concerns please feel free to contact the dictating provider for clarification Hilary Alfred MD [employer] Hilary Alfred MD 10/29/22 1842 Bed: 15 Expected date: 10/29/22 Expected time: 7:09 PM Means of arrival: Comments: triage Salma Galvez RN 10/29/22 191 documented in this encounter [facility] 10-29-2022 Hospital Discharge instructions JADEN Jauregui CNP - 10/29/2022 9:00 PM EDT Buy Refresh eye drops for eye irritation documented in this encounter [facility] 10-29-2022 Emergency department Note Formatting of this note might be differe nt from the original. Jody TANNER bedside. Devendra Donovan RN 10/29/222055 [facility] 10-29-2022 Emergency department Note Formatting of this note might be differe nt from the original. Pt A+Ox4. Pt has even and equal chest rise. Pt denies any needs at this time. Devendra Donovan RN 10/29/222055 [facility] 10-29-2022 History of Present illness Narrative Formatting of this note might be differe nt from the original. ED ophthalmology consult note Present illness: 27 yo female that at work today, she thinks something got into right eye (OD). Complains of foreign body sensation which was relieved just before I came into room to see patient. Patient stated that she had been trying to get something out of right eye (OD) with a piece of cloth and showed me a tiny foreign body on the cloth which she said that she had removed from upper eyelid right eye (OD). Patient stated foreign body sensation was now relieved. Eye exam: Visual acuity without lens correction 20/100 right eye (OD) and 20/20 left eye (OS). (Patient states that she wears a corrective lens right eye (OD) for astigmatism but her spectacles are at her place of work). External examination right eye (OD) is normal. No conjunctival injection. Slit lamp examination of cornea OD reveals clear cornea without evidence of foreign body. No fluorescein dye uptake of cornea or conjunctiva right eye (OD). Right upper eyelid everted of and no evidence of foreign body embedded in tarsal conjunctiva. Impression: Status post symptoms of foreign body of cornea or conjunctiva right eye (OD)/ apparently removed by patient/ no evidence of residual injury right eye (OD). Disposition: Explained above to patient in detail. Recommended that she buy a bottle of Refresh Tears at drugstore and instill into right eye (OD) if she experiences any further irritation in right eye. documented in this encounter [facility] 10-29-2022 Note Pt to go to [facility] ED f or further evaluation. Pt left amb in satisfactory to go by private vehicle with ride. Mabel Malloy RN 10/29/22 3185 [facility] 10-29-2022 Emergency department Note Formatting of this note might be differe nt from the original. Report given to MALDONADO Templeton, ED nurse credit office manager. Mabel Malloy RN 10/29/22 4330 [facility] 10-29-2022 Emergency department Note Formatting of this note might be differe nt from the original. Pt to go to [facility] ED for further evaluation. Pt left amb in satisfactory to go by private vehicle with ride. Mabel Malloy RN 10/29/22 8630 [facility] 10-29-2022 Emergency department Note Formatting of this note might be differe nt from the original. Pt had urine drug screen done per company policy s/p work injury. Mabel Malloy RN 10/29/22 0612 [facility] 10-29-2022 Emergency department Note Formatting of this note might be differe nt from the original. Bed: 15 Expected date: 10/29/22 Expected time: 7:09 PM Means of arrival: Comments: triage Salma Galvez RN 10/29/22 1914 [facility] 10-29-2022 Physician Emergency department Note Formatting of this note is different fro m the original. EMERGENCY DEPARTMENT ENCOUNTER Pt Name: Enmanuel Cardenas Birthdate 1995 Date of evaluation: 10/29/2022 ED Provider: Emily Silva MD CHIEF COMPLAINT Chief Complaint Patient presents with Eye Problem Pt states was at work at [email or web address] and had safety eyewear in place. Possible foreign body or dust in eye at approx 1505 today. HISTORY OF PRESENT ILLNESS (Location/Symptom, Timing/Onset, Context/Setting, Quality, Duration, Modifying Factors, Severity) Note limiting factors. HPI Enmanuel Cardenas is a 27 y.o. female who presents to the emergency department for concern for foreign body in her eye. Patient states that she was at work wearing her safety eyewear and she was working with metal and there was a fan near her to cool her off and something felt like it flew into her right eye. She states that since then she is been having some changes to her vision including brief blurry vision. She feels like she cannot open her eye because he is having a lot of pain. She feels like there is something in there that continues scratching her eye. Denies any other injuries. Nursing Notes were reviewed. REVIEW OF SYSTEMS Review of Systems Pertinent positives and negatives per HPI PAST MEDICAL HISTORY History reviewed. No pertinent past medical history. SURGICAL HISTORY History reviewed. No pertinent surgical history. CURRENT MEDICATIONS Previous Medications No medications on file ALLERGIES Sulfa antibiotics FAMILY HISTORY No family history on file. SOCIAL HISTORY Social History Socioeconomic History Marital status: Single Tobacco Use Smoking status: Never Smokeless tobacco: Never Vaping Use Vaping Use: Never used Substance and Sexual Activity Drug use: Never SCREENINGS PHYSICAL EXAM ED Triage Vitals [10/29/22 1521] Temp Heart Rate Resp BP 36.1 C (97 F) 87 20 (!) 159/106 SpO2 Temp Source Heart Rate Source Patient Position 97 % Infrared -- -- BP Location FiO2 (%) -- -- Physical Exam Uncomfortable appearing female lying in bed. Vital signs were reviewed and are largely unremarkable. Visual acuity was done by nursing and noted in chart. Right eye with some mild irritation. Normal pupil with negative Harinder sign. Some fluorescein uptake to the inner corner of her sclera. Concern for a foreign body underneath the upper eyelid on the medial aspect. No corneal ulcer or abrasion. DIAGNOSTIC RESULTS RADIOLOGY (Per Emergency Physician): Interpretation per the Radiologist below, if available at the time of this note: No orders to display LABS: Labs Reviewed - No data to display All other labs were within normal range or not returned as of this dictation. EMERGENCY DEPARTMENT COURSE and DIFFERENTIAL DIAGNOSIS/MDM: Vitals: Vitals: 10/29/22 1521 BP: (!) 159/106 Pulse: 87 Resp: 20 Temp: 36.1 C (97 F) TempSrc: Infrared SpO2: 97% Weight: 118 kg (260 lb) Medications tetracaine (Altacaine) 0.5 % ophthalmic solution 1-2 drop (has no administration in time range) fluorescein 1 MG ophthalmic strip 1 strip (has no administration in time range) Medical Decision Making Problems Addressed: Foreign body of right eye, initial encounter: complicated acute illness or injury Risk Prescription drug management. 27-year-old female presenting emergency department today for concern for a foreign body in the eye. Patient is afebrile and hemodynamically stable on arrival. Was at work when something flew into her eye. 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 She was wearing her safety goggles at the time but is having some discomfort still to the eye. She states that she feels like there is something scratching her eye and the inner corner of it underneath her upper eyelid. On exam she does have some tearing. Her pupil is normal and reactive. She has decreased visual acuity to the right eye. I am able to see some fluorescein uptake to the inner corner of her sclera and there is what appears to be a foreign body embedded underneath her eyelid medially. Unfortunately do not feel comfortable trying to remove this foreign body so the plan will be to transfer her to [facility] emergency department in order to be evaluated by the pci security consultant there. Patient is agreeable to this. Will be transferred via private vehicle that a coworker will drive. I Emily Silva MD am the epic interface analyst of record. FINAL IMPRESSION 1. Foreign body of right eye, initial encounter DISPOSITION Transfer To [facility] 10/29/2022 03:51:50 PM PATIENT REFERRED TO: No follow-up provider specified. DISCHARGE MEDICATIONS: New Prescriptions No medications on file (Comment: Please note this report has been produced using speech recognition software and may contain errors related to that system including errors in grammar, punctuation, and spelling, as well as words and phrases that may be inappropriate. If there are any questions or concerns please feel free to contact the dictating provider for clarification.) Emily Silva MD (electronically signed) Emergency Medicine Provider Emily Silva MD 10/29/22 1614 [facility] 10-29-2022 Physician Emergency department Note Formatting of this note might be differe nt from the original. Emergency Department Encounter [facility] EMERGENCY DEPT Patient: Enmanuel Cardenas : 1995 Date of Evaluation: 10/29/2022 ED Provider: Hilary Alfred MD I saw the patient as the Clinician in Triage and performed a brief history and physical exam, established acuity, and ordered appropriate tests to develop basic plan of care. Patient will be seen by PAUL, resident and/or my physician partner who will evaluate the patient. If seen by the PAUL I will manage the patient in a supervisory role and will be available for co-management. I did perform a substantive portion of the visit including all aspects of the Medical Decision Making. I wore appropriate PPE for the entirety of this encounter. Brief HPI: In brief, Enmanuel Cardenas is a 27 y.o. female that presents for right eye pain and foreign body sensation. The patient states that she was at work with a fan on and even though she was wearing her safety goggles, she thinks that metal or dust flew into her right eye. Because of decreased visual acuity and a potential foreign body embedded underneath her medial right eyelid, she was transferred from [facility] for an ophthalmology consult. Focused Physical exam: Patient able to open her right eye, EOMI. Plan/MDM: Dr. Rinaldi from ophthalmology was consulted and states that he will be here in about 25 minutes to evaluate the patient. Please see subsequent provider note for further details and disposition Comment: Please note this report has been produced using speech recognition software and may contain errors related to that system including errors in grammar, punctuation, and spelling as well as words and phrases that may be inappropriate. If there are any questions or concerns please feel free to contact the dictating provider for clarification Hilary Alfred MD [facility] Hilary Alfred MD 10/29/22 184 [place] Phone: 05-08-2022 Hospital Discharge instructions Patient Education 05/08/2022 12:40:10 Understanding Miscarriage: Emotions Understanding Miscarriage: Emotions Miscarriage is the unplanned end of a that happens before you reach 20 weeks. When a miscarriage happens, you re likely to have a wide range of feelings. Allow yourself to accept how you feel. Only then can you begin to move on. No one is to blame Know that you did not cause this to happen. Miscarriage is very common. There is a 15% chance of miscarriage with each (after has been diagnosed). Miscarriage usually takes place during the first 10 weeks after conception. Grief takes many forms Grief may be the first thing you feel, or it may come upon you later. Perhaps you ll grieve because the future you hoped for is lost. Grief is painful and often lonely. But your miscarriage should become easier to deal with over time. What you feel is OK No one can tell you how to respond to your miscarriage. If you have been trying to have a child, this loss may feel overwhelming. Perhaps this was an unplanned . That doesn t mean you won t feel loss. You know yourself best. It s OK to feel whatever you feel. A sense of loss No matter what you thought about being , having a miscarriage may cause a sense of loss. You may feel as if something is missing. It s OK if you can t describe how you feel. At first, it may be enough just to look inside yourself and feel your emotions. Partner s note Men grieve, too. You may be feeling sad, helpless or frustrated. When you re struggling with your own feelings, knowing how to help your partner may be hard. But do your best to provide support. The following tips may also help: Be kind to yourself and your partner. Spend time together. Fix a meal or bring dinner home for her. Rent a movie. If you have children, spend extra time with them. [employer]. [address] [place] [address]. All rights reserved. This information is not intended as a substitute for professional medical care. Always follow your healthcare professional's instructions. 05/08/2022 12:40:05 Understanding Miscarriage: Possible Causes Understanding Miscarriage: Possible Causes Miscarriage is common, but finding its cause may not be easy. If a cause can be found, it s likely to be a problem with the baby or the structure of the uterus. Other factors cause miscarriage, but they are less common. Problems with the baby Either of the following problems with the baby can cause a miscarriage: There is a problem with the baby s chromosomes (genes that carry the information needed for life). defects Problems with the uterus or cervix Any of the following problems with the uterus or cervix can cause a miscarriage: The uterus may be divided (have a septum), or have fibroids or adhesions. The lining of the uterus may be too thin for the fertilized egg to implant. The cervix may be too weak to support the weight of a . Other factors Any of the following problems can cause a miscarriage: A serious illness, such as uncontrolled diabetes mellitus. A bad injury, perhaps during a car accident. Exposure to toxins or radiation. What does not cause miscarriage Plenty of myths and old wives tales try to explain the cause of miscarriage. But they are fiction not fact. None of the following activities causes miscarriage: Carrying groceries Lifting a small child Wearing high heels Coloring your hair Having sex Vacuuming Working outside the home Being a vegetarian Eating spicy foods Having a Pap smear Riding a horse or a bicycle Wishing away or denying a [employer]. [address] [place] [id number]. All rights reserved. This information is not intended as a substitute for professional medical care. Always follow your healthcare professional's instructions. Follow Up Care 05/08/2022 10:21:20 With:LICHA CASEY Address: [address] [place] [address], [address] Dr. Clemente Benavidez, [place] [address]- [phone] When:2-4 days With:Go to emergency room if symptoms worsen Address:Unknown When:2-4 days [facility] 05-08-2022 Note Discharge Instructions Thank you for allowing [facility] to assist you with your healthcare needs. The following is important discharge information regarding your hospital visit. Diagnosis from Today's Visit Spontaneous Vaginal bleeding - < 20 wks What to Do Next Instructions from Your Care Team Bleeding may persist or increase. Motrin or Aleve will help with cramping or pain. No qualifying data available. Post Acute Orders No qualifying data available. You Need to Schedule the Following Appointments Follow Up with LICHA CASEY When Within 2-4 days Where: [address] [place] [address], [address] Dr. Clemente Benavidez, [place] [address]- [phone] Follow Up with Go to emergency room if symptoms worsen When Within 2-4 days Allergies sulfa drugs Medications Please ask your primary doctor or pharmacist before taking any other medication not listed, including over the counter drugs, herbal medications, vitamins and or supplements as they may interact with your home medications. Please take this list to your next doctor s visit. Bring all medications you take, including over the counter medications, herbals and other supplements with you to your doctor s visit. Patients and families are reminded to discard old lists and to update any records with all medication providers or retail pharmacies. Education Materials Understanding Miscarriage: Emotions Miscarriage is the unplanned end of a that happens before you reach 20 weeks. When a miscarriage happens, you re likely to have a wide range of feelings. Allow yourself to accept how you feel. Only then can you begin to move on. No one is to blame Know that you did not cause this to happen. Miscarriage is very common. There is a 15% chance of miscarriage with each (after has been diagnosed). Miscarriage usually takes place during the first 10 weeks after conception. Grief takes many forms Grief may be the first thing you feel, or it may come upon you later. Perhaps you ll grieve because the future you hoped for is lost. Grief is painful and often lonely. But your miscarriage should become easier to deal with over time. What you feel is OK No one can tell you how to respond to your miscarriage. If you have been trying to have a child, this loss may feel overwhelming. Perhaps this was an unplanned . That doesn t mean you won t feel loss. You know yourself best. It s OK to feel whatever you feel. A sense of loss No matter what you thought about being , having a miscarriage may cause a sense of loss. You may feel as if something is missing. It s OK if you can t describe how you feel. At first, it may be enough just to look inside yourself and feel your emotions. Partner s note Men grieve, too. You may be feeling sad, helpless or frustrated. When you re struggling with your own feelings, knowing how to help your partner may be hard. But do your best to provide support. The following tips may also help: Be kind to yourself and your partner. Spend time together. Fix a meal or bring dinner home for her. Rent a movie. If you have children, spend extra time with them. [id number] [employer]. [address] [place] [address]. All rights reserved. This information is not intended as a substitute for professional medical care. Always follow your healthcare professional's instructions. Understanding Miscarriage: Possible Causes Miscarriage is common, but finding its cause may not be easy. If a cause can be found, it s likely to be a problem with the baby or the structure of the uterus. Other factors cause miscarriage, but they are less common. Problems with the baby Either of the following problems with the baby can cause a miscarriage: There is a problem with the baby s chromosomes (genes that carry the information needed for life). defects Problems with the uterus or cervix Any of the following problems with the uterus or cervix can cause a miscarriage: The uterus may be divided (have a septum), or have fibroids or adhesions. The lining of the uterus may be too thin for the fertilized egg to implant. The cervix may be too weak to support the weight of a . Other factors Any of the following problems can cause a miscarriage: A serious illness, such as uncontrolled diabetes mellitus. A bad injury, perhaps during a car accident. Exposure to toxins or radiation. What does not cause miscarriage Plenty of myths and old wives tales try to explain the cause of miscarriage. But they are fiction not fact. None of the following activities causes miscarriage: Carrying groceries Lifting a small child Wearing high heels Coloring your hair Having sex Vacuuming Working outside the home Being a vegetarian Eating spicy foods Having a Pap smear Riding a horse or a bicycle Wishing away or denying a [id number] [employer]. [address] [place] [address], [place] [address]. All rights reserved. This information is not intended as a substitute for professional medical care. Always follow your healthcare professional's instructions. Additional Information VACCINATE! IT SAVES LIVES! Members of the community who have not yet received the COVID-19 vaccine and would like to receive it can visit one of [facility] vaccine clinics. There are many vaccine clinic locations within the [facility]. For locations and available times, please visit www.gettheshot.coronavirus.[place].gov/. It is important to note that some COVID mobile vaccine clinics are held outdoors and may be canceled in rainy or stormy conditions. To learn more about pediatric vaccinations (ages 5-11), we invite you to visit the [facility] webpage. [email or web address]/[email or web address] [email or web address]-[email or web address] To learn more about the COVID-19 vaccine, we invite you to visit the CDC website for a list of frequently asked questions. https://www.cdc.gov/coronavirus/2019-ncov/vaccine s/faq.html [facility] Patient Portal Access Instructions: Stay connected with your healthcare team and access your personal medical information anytime with the [facility] Patient Portal. If you would like a full copy of your medical records please contact the [facility] Medical Records Department Friday through Friday between 8a.m. and 4:30p.m. Please follow the directions below to access the portal: 1.Access the email account you provided upon registration to the hospital.2.Look for an invitation email from [facility].3.Open the email and access the invitation link: Accept Invitation to [facility]4.Fill in the required purvis to create your account. Sign into [email or web address] with your username and password that you created in the above steps to stay up to date. You can then view a summary of results, a summary of your visits, and the ability to download your summaries to your computer or send the information securely to a physician. Remember that your healthcare information is confidential, so carefully consider who you will allow to register on the [facility] Patient Portal for access to your information. You can also access the [facility] Patient Portal on the [employer]. Simply click on Health Records under Health Data and then click on the [facility] logo. HOW TO SAFELY DISPOSE OF PRESCRIPTION MEDICATIONS Please use one of the following methods to safely dispose of your unused medications. 1.Use a drug disposal kit: the drug disposal pouch allows you to safely discard your old and unused drugs. Ask your nurse to give you one when you are discharged.2.Visit a local take-back location: Many local pharmacies and police departments have programs that collect old and unwanted prescription drugs. Call your local pharmacy or go to http://[employer] Shoes.Smarter Pockets/8V8Nj9l to find one close to you.3.Make use of household items: Use cat litter or old coffee grounds to dispose medications if other options are not available. Mix your drugs with these household products, seal them in an airtight container and throw it into the garbage. Call [facility]: [phone] to be sure your drugs can be disposed of in this way. Some medicines may require a different approach.4.Never flush your medications down the toilet. IF YOU HAVE BEEN PRESCRIBED AN OPIOIDS FOR PAIN If you have been prescribed an opioid (such as hydrocodone, oxycodone or morphine), it is critical to understand the possible side effects and risks of opioid pain medications. Even when taken as directed, opioids can have several side effects including: Tolerance, meaning you might need to take more of a medication for the same pain relief. Nausea, vomiting and/or constipation. Sleepiness, dizziness, dry mouth, confusion, depression or itching. Physical dependence, meaning you have withdrawal symptoms when a medication is stopped ? this can develop within a few days. KNOW YOUR RESPONSIBILITIES It is important to know exactly how much and how often to take the opioid pain medications you are prescribed. Never take opioids in higher amounts or more often than prescribed. Do not combine opioids with alcohol or other drugs that cause drowsiness, such as benzodiazepines, also known as benzos, including diazepam and alprazolam, muscle relaxants or sleep aids. Never sell or share prescription opioids. This is illegal. Store opioids in a secure place and out of reach of others (including children, family, friends and visitors). The last page(s) of this document has been signed and retained as a CHART COPY Signatures Patient Education Materials Understanding Miscarriage: Emotions Understanding Miscarriage: Possible Causes Medication Leaflets My discharge plan and instructions have been reviewed and explained to me and I,ENMANUEL CARDENAS understand my current condition and have read and understand these discharge instructions. I have received a written copy of the plan/instructions. If I have questions, I am aware that I should contact my doctor. Patient/Entry Level Civil Engineer Signature: Date/Time: Relationship to Patient: Witness Name/Signature: Date/Time: [facility] 05-08-2022 Note HNO ID: [id number] Author: Kayode Salazar (Aneta) ANETA Rapp Service: ? Author Type: Physician Deputy Attorney General Type: Progress Notes Filed: 05/08/2022 9:56 AM Note Text: Enmanuel Cardenas is an 26 year old female presenting with Vaginal Problem (Patient states that two days ago she had a positvie at home test //She states she started spotting last night /She states she took an at home test this morning and it was negative. /) HPI: The patient states that she has had 3 positive and 1 negative at home over the last few days. Patient states her last menstrual period was March 18, 2022. Patient states she started some vaginal spotting bleeding last evening. Patient also states she has had some pelvic cramping as well since yesterday. The patient states positive nausea no vomiting diarrhea. Bowel movements have been normal color and consistency. No black or bloody stools. The patient denies dysuria, urinary frequency, urgency and or gross hematuria. No flank pain. Denies fevers chills. History reviewed. No pertinent past medical history. There is no problem list on file for this patient. Current Outpatient Medications Medication Sig Dispense Refill vit no.124/iron/folic ( VITAMIN ORAL) Take by mouth once daily. No current facility-administered medications for this visit. Social History Tobacco Use Smoking status: Never Smokeless tobacco: Never Vaping Use Vaping Use: Never used Substance Use Topics Alcohol use: Yes Comment: once a month Drug use: Never Alcohol Use: Yes (once a month) Tobacco Use: Never History reviewed. No pertinent family history. ROS: Unless otherwise stated in this report the patient's positive and negative responses for review of systems for constitutional, eyes, ENT, cardiovascular, respiratory, gastrointestinal, neurological, , musculoskeletal, and integument systems and related systems to the presenting problem are either stated in the history of present illness or were not pertinent or were negative for the symptoms and/or complaints related to the presenting medical problem. BP 137/81 Pulse 64 Temp (Src) 99 (Temporal) Resp 22 Wt 278 lb (126.1kg) SpO2 100% LMP 03/18/2022 Physical Exam: Const: Appears healthy and well developed. No signs of acute distress present. Vitals reviewed per triage. Head/Face: Normocephalic, atraumatic. Facies is symmetric. Eyes: PERRL. ENMT: Tympanic membranes are pearly thakur with good light reflex bilaterally. Nares are patent. Buccal mucosa was moist. Posterior pharynx shows no exudate, irritation or redness. Neck: Supple and symmetric. Palpation reveals no adenopathy. Trachea midline. Resp: Lungs are clear bilaterally. CV: Rhythm is regular. S1 is normal. S2 is normal. Abdomen: Abdomen soft, mild tenderness right and left pelvic area abdomen is nondistended with BSPx4. No abdominal guarding, rebound tenderness peritoneal signs masses or organomegally noted. Musculo: Walks with a normal gait. Patient moves extremities without pain or limitation. Pulses are equal bilaterally. Skin: Skin is warm and dry. Neuro: Alert and oriented x3. Speech is articulate and fluent. Psych: Patient's mood and affect is appropriate Pelvic deferred Enmanuel was seen today for vaginal problem. Diagnoses and all orders for this visit: , unspecified gestational age Pelvic pain Vaginal bleeding I do feel based on the patient's history and physical exam further evaluation is warranted in the emergency department. Therefore patient was sent to [facility] emergency department for further evaluation and management. Kayode Rapp PA-C, ANETA Return for To ER for evaluation and management. [facility] 05-08-2022 History of Present illness Narrative Formatting of this note is different fro m the original. Enmanuel Cardenas is an 26 year old female presenting with Vaginal Problem (Patient states that two days ago she had a positvie at home test //She states she started spotting last night /She states she took an at home test this morning and it was negative. /) HPI: The patient states that she has had 3 positive and 1 negative at home over the last few days. Patient states her last menstrual period was March 18, 2022. Patient states she started some vaginal spotting bleeding last evening. Patient also states she has had some pelvic cramping as well since yesterday. The patient states positive nausea no vomiting diarrhea. Bowel movements have been normal color and consistency. No black or bloody stools. The patient denies dysuria, urinary frequency, urgency and or gross hematuria. No flank pain. Denies fevers chills. History reviewed. No pertinent past medical history. There is no problem list on file for this patient. Current Outpatient Medications Medication Sig Dispense Refill vit no.124/iron/folic ( VITAMIN ORAL) Take by mouth once daily. No current facility-administered medications for this visit. Social History Tobacco Use Smoking status: Never Smokeless tobacco: Never Vaping Use Vaping Use: Never used Substance Use Topics Alcohol use: Yes Comment: once a month Drug use: Never Alcohol Use: Yes (once a month) Tobacco Use: Never History reviewed. No pertinent family history. ROS: Unless otherwise stated in this report the patient's positive and negative responses for review of systems for constitutional, eyes, ENT, cardiovascular, respiratory, gastrointestinal, neurological, , musculoskeletal, and integument systems and related systems to the presenting problem are either stated in the history of present illness or were not pertinent or were negative for the symptoms and/or complaints related to the presenting medical problem. BP 137/81 Pulse 64 Temp (Src) 99 (Temporal) Resp 22 Wt 278 lb (126.1kg) SpO2 100% LMP 03/18/2022 Physical Exam: Const: Appears healthy and well developed. No signs of acute distress present. Vitals reviewed per triage. Head/Face: Normocephalic, atraumatic. Facies is symmetric. Eyes: PERRL. ENMT: Tympanic membranes are pearly thakur with good light reflex bilaterally. Nares are patent. Buccal mucosa was moist. Posterior pharynx shows no exudate, irritation or redness. Neck: Supple and symmetric. Palpation reveals no adenopathy. Trachea midline. Resp: Lungs are clear bilaterally. CV: Rhythm is regular. S1 is normal. S2 is normal. Abdomen: Abdomen soft, mild tenderness right and left pelvic area abdomen is nondistended with BSPx4. No abdominal guarding, rebound tenderness peritoneal signs masses or organomegally noted. Musculo: Walks with a normal gait. Patient moves extremities without pain or limitation. Pulses are equal bilaterally. Skin: Skin is warm and dry. Neuro: Alert and oriented x3. Speech is articulate and fluent. Psych: Patient's mood and affect is appropriate Pelvic deferred Enmanuel was seen today for vaginal problem. Diagnoses and all orders for this visit: , unspecified gestational age Pelvic pain Vaginal bleeding I do feel based on the patient's history and physical exam further evaluation is warranted in the emergency department. Therefore patient was sent to [facility] emergency department for further evaluation and management. Kayode Rapp PA-C, ANETA Return for To ER for evaluation and management. documented in this encounter [facility] 01-01-2021 History of Present illness Narrative DATE OF SERVICE: 12/29/2020 REASON OF VISIT: Burning urination. HISTORY OF PRESENT ILLNESS: This is a 25-year-old female who presents with burning urination for the last 6 days. Denies any fever or chills. Initially, he had blood in her urine as well. No discharge. No back pain. Patient stated that she already took leftover amoxicillin. She took two 500-mg doses of amoxicillin twice yesterday. The last time was 10 p.m. last night. No other problem at this visit. Review of other systems normal. ALLERGIES: TUAN, ADHESIVES, SULFA. MEDICATIONS: Leftover amoxicillin. PHYSICAL EXAMINATION: She is awake, alert, not in distress. No dyspnea. Temperature 97.5, blood pressure 149/70, pulse 83, respirations 18, pulse oximetry 97%. Pain score 2/10. HEENT: Unremarkable. Chest: Clear to auscultate. Heart: Regular rate and rhythm. Abdomen: Benign. No CVA tenderness. Urine dipstick was negative for leukocytes, nitrite, blood, and protein. ASSESSMENT: Urinary tract infection. PLAN: Clinical findings discussed with the patient and her mother in detail. I explained to them that this urine check today did not show any abnormal finding, but she had already taken 2 doses of antibiotics which might have started clearing up the urine, so I will continue her with antibiotic with amoxicillin 875 mg twice a day for 5 days with no refill. She should drink a lot of fluids. Tylenol as needed. She did not want a urine culture. She should follow up with her primary doctor for further evaluation and care if there is no improvement. Patient understands and agrees. Yumiko Gavin MD [id number] SSI File#: [id number] END OF DOCUMENT / CHANGE LOG FOLLOWS Last Edited By Elec. Signed By Yumiko Gavin MD #[id number] Yumiko Gavin MD #JEN on 01/09/2021 19:40 ET on 01/09/2021 19:40 ET Revision Number - 2 ^^^ Verified/Reviewed by 01/09/21 Otis LI [facility] PATIENT NAME: ENMANUEL CARDENAS [address] [facility] [address] MEDICAL REC #: [id number] [place] [address] [facility] REPORT STATCARE PHYSICIAN documented in this encounter [facility] Evaluation + Plan note No data available for this section [facility] Evaluation note Diagnosis , unspecified gestational age- Primary Pelvic pain Vaginal bleeding Other specified noninflammatory disorder of vagina documented [facility] Foreign body of right eye, initial encounter- Primary documented in this encounter [facility] Summary Purpose Family History No Family History Records FoundNo Family History Records FoundNo Family History Records Found No data available for this section No Family History Records FoundNo Family History Records FoundNo Family History Records Found Advance Directives No Advanced Directives Records FoundNo Advanced Directives Records FoundNo Advanced Directives Records FoundNo Advanced Directives Records FoundNo Advanced Directives Records FoundNo Advanced Directives Records Found Additional Source Comments INFORMATION SOURCE (unrecogn ized section and content) DATE CREATED AUTHOR 04/29/2021 [facility] [place] DATE CREATED AUTHOR AUTHOR'S ORGANIZ ATION 05/09/2022 [facility] DATE CREATED AUTHOR AUTHOR'S ORGANIZ ATION 11/08/2022 [facility] DATE CREATED AUTHOR AUTHOR'S ORGANIZ ATION 08/05/2023 [facility] ([place]) DATE CREATED AUTHOR AUTHOR'S ORGANIZ ATION 10/16/2023 [facility] DATE CREATED AUTHOR AUTHOR'S ORGANIZ ATION 11/26/2023 [facility] Source Comments (unrecognize d section and content) In the event this informatio n is protected by the Federal Confidentiality of Alcohol and Drug Abuse Patient Records regulations: The Federal rules restrict any use of the information to criminally investigate or prosecute any alcohol or drug abuse patient.[facility] the event this information is protected by the Federal Confidentiality of Alcohol and Drug Abuse Patient Records regulations: The Federal rules restrict any use of the information to criminally investigate or prosecute any alcohol or drug abuse patient.[facility] Reason for Visit (unrecogniz ed section and content) Reason Comments Vaginal Problem Patient states that two days ago she had a positvie at home test She states she started spotting last night She states she took an at home test this morning and it was negative. Reason Comments Eye Pain Reason Comments Eye Problem Pt states was at wor k at [employer] and had safety eyewear in place. Possible foreign body or dust in eye at approx 1505 today. Care Team (unrecognized sect ion and content) Care Team Personnel Name: PHYSICIAN, NONE Position: Physician Member Role: Primary Care Physician Name: Deepti Lindsey RN Position: AO RN Member Role: ED RN Name: ASHTYN LION MD Position: ED Physician Member Role: ED Physician Address: Address: [facility] [address] [place] [address]- Care Team Related Persons Name: RICHAR CARDENAS Address: Home [id number] [place] [id number] [place] Care Teams (unrecognized sec tion and content) Veterinarian Small Animal Relationship Specialty [facility] [address] [place] [address] PCP - General 10/29/22 Veterinarian Small Animal Relationship Specialty Start Date End Date [facility] [address] [place] [address] PCP - General 10/29/22 Scheduled Active and Recently Administ ered Medications (unrecognized section and content) Medication Order 10/27/2022 10/28/2022 10/29/2022 fluorescein 1 MG ophthalmic strip 1 strip (COMPLETED) 1 strip, Both Eyes, Once, On Fri10/29/22 at 1530, For 1 dose 1530 (Given by Other - Provider: Mabel Malloy RN - Reason: Other - Comment: given by resident) tetracaine (Altacaine) 0.5 % ophthalmic solution 1-2 drop (COMPLETED) 1-2 drop, Both Eyes, Once, On Fri10/29/22 at 1530, For 1 dose 1530 (Given by Other - Provider: Mabel Malloy RN - Reason: Other - Comment: given by resident) FOR RECORDS PERTAINING TO PATIENTS WHO ARE OR HAVE BEEN ENROLLED IN A CHEMICAL DEPENDENCY/SUBSTANCEABUSE PROGRAM, SOME INFORMATION MAY BE OMITTED. This clinical summary was aggregated from multiple sources. Caution should be exercised in using it in the provision of clinical care. This summary normalizes information from multiple sources, and as a consequence, information in this document may materially change the coding, format and clinical context of patient data. In addition, data may be omitted in some cases. CLINICAL DECISIONS SHOULD BE BASED ON THE PRIMARY CLINICAL RECORDS. [email or web address] provides no warranty or guarantee of the accuracy or completeness of information in this document.
[2024-01-01 22:58] VITALS: BMI 43.0
[2024-01-01 23:10] VITALS: PULSE 70; RESP 14; TEMP 36.6; O2SAT 99
[2024-01-01 23:11] VITALS: BP 137/94; PULSE 73
[2024-01-01 23:13] VITALS: BP 135/92; PULSE 71
[2024-01-01 23:18] VITALS: BP 138/92; PULSE 85
[2024-01-01 23:26] LABS: Color, Urine Yellow (Yellow); Glucose, Dipstick Normal (Normal); Ketone-Dipstick Negative (Negative); Leukocyte Esterase-Dipstick Negative /ul (Negative); Nitrite-Dipstick Negative (Negative); Occult Blood-Urine Negative /ul (Negative); Protein-Dipstick Negative (Negative); Urine Bilirubin Dipstick Negative (Negative); Urine Clarity Clear (Clear); Urine Urobilinogen Normal (Normal)
[2024-01-01] MEDS: Ondansetron ODT 4 MG Tablet PO (23:55)
[2024-01-01] MEDS: Loperamide 2 MG Capsule 4 MG PO (23:56)
[2024-01-02 00:01] LABS: Hematocrit 36.1 % (37-47); Hemoglobin 11.7 g/dL (12.0-15.0); Mean Corp Hgb Conc 32.4 g/dL (32-36); Mean Corpuscular Hgb 28.7 pg (27.0-32.0); Mean Corpuscular Volume 88.7 fL (81-99); Mean Platelet Vol. 9.3 fl (6.2-12.0); Platelet Count 287 K/mm3 (150-450); RBC Distribution Width CV 12.9 % (11.6-14.6); RBC Distribution Width SD 41.9 fl (35.1-43.9); Red Blood Count 4.07 M/mm3 (4.2-5.4); White Blood Count 13.2 K/mm3 (4.4-11.0)
[2024-01-02 00:16] LABS: AST(SGOT) 10 U/L (15-37); Alanine Aminotransfer ALT/SGPT 19 U/L (13-56); Creatinine, Serum 0.49 mg/dL (0.55-1.02); EST Glomerular Filtration Rate 159 mL/min (>60); Est Glom Filt Rate - Afr Amer 192 mL/min (>60); Estimated Creatinine Clearance 236.53 ml/min; Uric Acid 3.3 mg/dL (2.6-6.0)
[2024-01-02 00:18] LABS: Protein, Urine (Random) < 6.0 mg/dL (<11.9)
--- NOTE | 2024-01-05 13:35 | OB.TRI.HP_ITS ---
HPI - General General Date of Service: 01/01/24 HPI Narrative ENMANUEL MACIAS, is a 28 y/o @ 29 weeks who presents to L&D with nausea and diarrhea. She was found to have some elevated blood pressures and orders were given to nurse to collect PIH labs. She thinks that she may have food poisoning from rubio's yesterday. She denies lof, vaginal bleeding or dec fm. Maternal Data Information STEPHAN Calculator Estimated Delivery Date Method Current WG Current Estimate 03/11/24 LMP (Certain) 30w 4d PFSH PFSH Medical History Amenorrhea Chemical Home Medications ?Medication ?Instructions ?Recorded ?Last Taken ?Type multivitamin no.47-iron fum 27 1 cap PO DAILY 07/08/23 12/31/23 History mg-folate no.1 1 mg-dha 300 mg capsule (PNV-DHA) famotidine 20 mg tablet (Pepcid) 20 mg PO DAILY #30 tabs 12/25/23 01/01/24 Rx Allergy/AdvReac Type Severity Reaction Status Date / Time mike Allergy Severe Anaphylaxis Verified 01/01/24 23:13 adhesive Allergy Intermediate Rash Verified 01/01/24 23:13 Sulfa (Sulfonamide AdvReac Intermediate Diarrhea Verified 01/01/24 23:13 Antibiotics) Social History adopted: No household members: spouse and family current occupational status: employed current occupation: [employer] current occupational exposures/hazards: Yes (extreme heat) pets and animals: Yes (Avoid litterbox) pets and animals: cat(s) and other details: yulissa history of recent travel: Yes ([place]) out of state: Yes out of country: No sexually active: Yes Smoking Status: Never smoker alcohol intake: current alcohol intake frequency: holidays/special occasions only details: not while substance use type: does not use diet: other well-balanced diet: daily or most days caffeine: No eating out: rarely or never during the past year weight has: increased > 10 lbs what type of physical activity do you participate in: walking frequency: 5-6 times per week duration: 60-90 minutes/day janae/faith: Religious seatbelt use: always do you feel safe at home: Yes additional social history: Leonardo History 2 Elective abortions Hx Para 0 Spontaneous abortions 1 Hx # Term Pregnancies Ectopic pregnancies Hx # Pregnancies Multiple births # of living children 0 Past Pregnancies Del. Date Name GA/Weeks Outcome Route Bth Weight Infant Gen Labor Lgth Anesthesia Del Hugo Provider FOB 05/09/22 5 spontaneous Visit Details Expected Delivery Route/Plan Labor Preferences- CB/BF classes: [] labor support person: [] labor intervention preferences: [] pain management options preferred: [] cut cord/dad catch: [] : [] PP control planned: [] discussed possible routes of delivery and associated risks: [] special requests: [] Plans Covid status: [] Flu vaccine: [] Tdap vaccine: considering Rhogam: [] LARC form signed: [] Problem list reviewed and updated with the most current plan of care details and appropriate orders placed. Relevant counseling for the gestational age provided. Continue routine care and follow up unless otherwise noted in visit notes/problem list details OB Flowsheet Initial Weight: Not Recorded Date -?-?-?-?-?-?-?-?-?-?-?-?- EGA Weight BP Urine Prot -?-?-?-?-?-?-?-?-?-?-?-?- Glucose FHR FuHt Pres Dilation -?-?-?-?-?-?-?-?-?-?-?-?- Effaced St Visit Note 07/24/23 -?-?-?-?-?-?-?-?-?-?-?-?- 7w 0d 268 lb 136/79 -?-?-?-?-?-?-?-?-?-?-?-?- 140 -?-?-?-?-?-?-?-?-?-?-?-?- KW- CRL cons wit h dates. Declines NIPT 08/13/23 -?-?-?-?-?-?-?-?-?-?-?-?- 9w 6d 265 lb 8 oz Trace -?-?-?-?-?-?-?-?-?-?-?-?- Negative -?-?-?-?-?-?-?-?-?-?-?-?- Nurse visit with vaginal twinges -UA neg. Trace ketones. Urine culture pending. Force fluids. Reassure. No bleeding/dischage. 08/21/23 -?-?-?-?-?-?--?-?-?-?-?-?- 11w 0d 269 lb 126/83 Negative -?-?-?-?-?-?-?-?-?-?-?-?- Negative 160 -?-?-?-?-?-?-?-?-?-?-?-?- SM- SM- no vb cramping ordered a natomy scan. 09/22/23 -?-?-?-?-?-?-?-?-?-?-?-?- 15w 4d 268 lb 4 oz 125/86 Nega tive -?-?-?-?-?-?-?-?-?-?-?-?- Negative 160 -?-?-?--?-?-?-?-?-?-?-?-?- JV- bedside scan performed today for patient reassurance. due to obesity unable to determine define structures. healthy diet encouraged. Pt complained of pain with pressing with the probe. no obvious reasons to her discomfort. likely anxiety. explained they will need to press during anatomy scan and to be prepared that the sensation is normal. 10/29/23 -?-?-?-?-?-?-?-?-?-?-?-?- 20w 6d 269 lb 126/85 Negative -?-?-?-?-?-?-?-?-?-?-?-?- Negative 155 -?-?-?-?-?-?-?-?-?-?-?-?- JV- no lof, vagi nal bleeding, or cramping. normal anatomy scan. consider monthly growth scans after 28 weeks due to obesity. she has sciatic nerve pain. we discussed treatment. also has some vertigo and acid reflux. recommend bonine and pepcid complete. 11/28/23 -?-?-?-?-?-?-?-?-?-?-?-?- 25w 1d 270 lb 126/80 Negative -?-?-?-?-?-?-?-?-?-?-?-?- Negative 145 -?-?-?-?-?-?-?-?-?-?-?-?- KW- no vb/lof/ct x. good fm depression sx discussed SSRI and counseling. declining counseling at this time due to cost. will talk to about zoloft and let us know 12/25/23 -?-?-?-?-?-?-?-?-?-?-?-?- 29w 0d 275 lb 125/86 Negative -?-?-?-?-?-?-?-?-?-?-?-?- Negative 150 30 -?-?-?-?-?-?-?-?-?-?-?-?- SM- no vb lof go od fm no regular ctx ordered pepcid, discussed tdap ROS Constitutional Constitutional: Reports systems reviewed and no addt'l complaints, except as documented Gastrointestinal Gastrointestinal: Denies bloating, constipation, cramping, diarrhea, nausea or vomiting Genitourinary Genitourinary: Reports other Details: Denies vaginal odor, vaginal bleeding, or vaginal discharge ; Denies difficulty urinating or flank pain NST FHR Rate Baby A Baseline: 140 Variability:: Moderate Accelerations:: 15 x 15 Decelerations:: None NST Reactive:: Yes FHR Category:: Category I Assessment & Plan (1) Nausea and vomiting during : (2) Obesity affecting : COMMENT: A1C nl -BMI 42 at NOB plan growth us at 32 and 36 weeks, nsts weekly starting at 34 weeks (3) Supervision of high-risk : QUALIFIERS: Trimester: first trimester Qualified Code(s): O09.91 - Supervision of high risk , unspecified, first trimester COMMENT: PRR, , STEPHAN 03/11/24, Leonardo (4) : QUALIFIERS: Weeks of gestation: 29 weeks Qualified Code(s): Z3A.29 - 29 weeks gestation of COMMENT: discussed genetic & carrier testing, declined PLAN: Plan pt was given imodium + zofran and now feeling better. call if symptoms return. pih labs are normal. Charges/Coding Multi Select Codes Urinary/Genital Urinary/Genital CPT Codes: 52681-43 non-stress test Interp
== END 2024-01-02 00:45 | disposition home or self-care (01) ==
LOC: WPOUT 22:48 → WP 22:49
PROVIDERS: Referring Provider Obstetrics & Gynecology; Visit Provider Obstetrics & Gynecology
DX: O21.2 Late vomiting of pregnancy (principal); O99.213 Obesity complicating pregnancy, third trimester; Z3A.29 29 weeks gestation of pregnancy
CPT/HCPCS: 36415; 59025; 59050; 81002; 82565; 82570; 84156; 84450; 84460; 84550; 85027; 99221; G0378

== ENCOUNTER 2024-01-28 09:30 | Outpatient (CLI) | payer MEDICAID, SELFPAY ==
--- NOTE | 2024-01-28 09:32 | US_ITS ---
STUDY: OBSTETRICAL ULTRASOUND - BIOPHYSICAL PROFILE REASON FOR EXAM: Female, 28 years old decels -- near syncope with NST LMP: June 05, 2023. PRIOR ULTRASOUND: None. TECHNIQUE: Transabdominal TECHNICAL QUALITY: Adequate. FINDINGS: There is a single intrauterine fetus. The fetus is in a breech presentation. There is demonstrated cardiac activity with a heart rate of 143 bpm. There is a normal amniotic fluid volume. The largest amniotic fluid pocket measures 5.7 cm. The amniotic fluid index (RENAN) is 16.9 cm. The placenta is posterior in location and is not low lying. There are Grade 1 placental changes. Age by LMP: 33 weeks, 6 days. STEPHAN by LMP: March 30, 2024. BIOPHYSICAL PROFILE: Breathing Movements (FBM): 2 Gross Body Movements (GBM): 2 Tone (FT): 2 Amniotic Fluid Volume (AFV): 2 TOTAL SCORE: / US/Biophysical Prof W/O Non Stres IMPRESSION: Normal biophysical profile of 10/15. Electronically Signed: Jonathan Fontaine MD at 11:44 EST ,
[2024-01-28 09:43] VITALS: BMI 42.7
[2024-01-28 09:48] VITALS: BP 136/86; PULSE 85; RESP 16; TEMP 36.7
--- NOTE | 2024-01-28 12:52 | OB.TRI.PN ---
Progress Notes Date of Service: 01/28/24 Progress Note: tachycardia at 34 weeks seen in office for NST and then cam to l and d for BPP. 10/15. Assessment & Plan (1) tachycardia: COMMENT: had bpp in triage (2) : QUALIFIERS: Weeks of gestation: 33 weeks Qualified Code(s): Z3A.33 - 33 weeks gestation of COMMENT: discussed genetic & carrier testing, declined (3) Supervision of high-risk : QUALIFIERS: Trimester: third trimester Qualified Code(s): O09.93 - Supervision of high risk , unspecified, third trimester COMMENT: PRR, , STEPHAN 03/11/24, Leonardo (4) Obesity affecting : QUALIFIERS: Trimester: third trimester Obesity type affecting : unspecified obesity Qualified Code(s): O99.213 - Obesity complicating , third trimester COMMENT: A1C nl -BMI 42 at NOB plan growth us at 32 and 36 weeks, nsts weekly starting at 34 weeks (5) Nausea and vomiting during :
== END 2024-01-28 13:00 | disposition home or self-care (01) ==
LOC: WPOUT 09:31 → WP 09:34
PROVIDERS: Referring Provider Obstetrics & Gynecology; Visit Provider Obstetrics & Gynecology
DX: O36.8330 Maternal care for abnormalities of the fetal heart rate or rhythm, third trimester, not applicable or unspecified (principal); O99.213 Obesity complicating pregnancy, third trimester; Z3A.33 33 weeks gestation of pregnancy
CPT/HCPCS: 59025; 59050; 76819; 99221; G0378

== ENCOUNTER 2024-02-02 10:00 | Outpatient (CLI) | payer MEDICAID, SELFPAY ==
--- NOTE | 2024-02-02 10:07 | US_ITS ---
HISTORY: variables -- low heart rate. TECHNIQUE: Transabdominal pelvic ultrasound was performed. 26 images. COMPARISON: 01/28/2024. FINDINGS: INTRAUTERINE GESTATION(s): Single. PRESENTATION: Cephalic. PLACENTA: Posterior, grade one. CERVIX: 3.3 cm long. HEART MOTION: 148 bpm. AMNIOTIC FLUID INDEX (RENAN): 20 cm. Largest fluid pocket 5.6 cm. BIOPHYSICAL PROFILE (BPP): 10/15 -- Breathin/2. -- Movement: 2/2. -- Tone: 2/2. --RENAN: 2/2. US/Biophysical Prof W/O Non Stres IMPRESSION: Single living intrauterine with a normal biophysical profile score. Electronically Signed: Yulisa Bazzi MD at 13:16 EST ,
[2024-02-02 10:26] VITALS: BMI 43.3
--- NOTE | 2024-02-02 10:27 | NURSING ---
pt to ultra sound for BPP via wheelchair.
[2024-02-02 11:25] VITALS: PULSE 82; O2SAT 98
[2024-02-02 11:27] VITALS: BP 121/59; PULSE 78; RESP 16; TEMP 37.1
--- NOTE | 2024-02-02 12:05 | OB.TRI.PN_ITS ---
Progress Notes Date of Service: 02/02/24 Progress Note: Patient presents for triage evaluation secondary to nonreactive NST in office at 34 weeks. FHT: 130 Moderate variability reactive no decelerations category I tracing [place]: no Contractions Assessment and plan: Bpp 10/15, Reactive NST, reassuring maternal and status patient discharged to home to follow-up in the office. See problem list details for additional plan information. Charges/Coding Multi Select Codes Urinary/Genital Urinary/Genital CPT Codes: 57787-69 non-stress test Interp Assessment & Plan (1) Nausea and vomiting during : (2) Obesity affecting : QUALIFIERS: Trimester: third trimester Obesity type affecting : unspecified obesity Qualified Code(s): O99.213 - Obesity complicating , third trimester COMMENT: A1C nl -BMI 42 at NOB plan growth us at 32 and 36 weeks, nsts weekly starting at 34 weeks (3) Supervision of high-risk : QUALIFIERS: Trimester: third trimester Qualified Code(s): O09.93 - Supervision of high risk , unspecified, third trimester COMMENT: PRR, , STEPHAN 03/11/24, Leonardo (4) : QUALIFIERS: Weeks of gestation: 34 weeks Qualified Code(s): Z3A.34 - 34 weeks gestation of COMMENT: discussed genetic & carrier testing, declined (5) Non-reactive NST (non-stress test): COMMENT: BPP 10/15, d/c home
[2024-02-02 12:26] LABS: Mucous, Urine 0 SEEN /hpf (<or=2+); Red Blood Cells-Urine 0 SEEN /hpf (0-5)
[2024-02-02 12:34] LABS: Color, Urine Yellow (Yellow); Glucose, Dipstick Normal (Normal); Ketone-Dipstick Negative (Negative); Leukocyte Esterase-Dipstick 100 /ul (Negative); Nitrite-Dipstick Negative (Negative); Occult Blood-Urine Negative /ul (Negative); Protein-Dipstick 15 mg/dl (Negative); Urine Bilirubin Dipstick Negative (Negative); Urine Clarity Clear (Clear); Urine Urobilinogen 1 mg/dl (Normal)
[2024-02-02 12:45] LABS: Bacteria 3+ /hpf (None Seen); Squamous Epithelial Cells - UA 0-5 SEEN /hpf (5-10); White Blood Cells 5-10 SEEN /hpf (0-5)
== END 2024-02-02 12:20 | disposition home or self-care (01) ==
LOC: WPOUT 10:05 → WP 10:06
PROVIDERS: Referring Provider Advanced Practice Midwife; Visit Provider Advanced Practice Midwife
DX: O21.2 Late vomiting of pregnancy (principal); O99.213 Obesity complicating pregnancy, third trimester; Z3A.34 34 weeks gestation of pregnancy
CPT/HCPCS: 59025; 59050; 76819; 81001; 87086; 87088; 99221; G0378

== ENCOUNTER 2024-02-13 10:20 | Outpatient (CLI) | payer MEDICAID, SELFPAY ==
--- NOTE | 2024-02-13 10:31 | US_ITS ---
STUDY: OBSTETRICAL ULTRASOUND - BIOPHYSICAL PROFILE REASON FOR EXAM: Female, 28 years old well being LMP: June 05, 2023. PRIOR ULTRASOUND: Comparison is made with prior study dated February 02, 2024. TECHNIQUE: Transabdominal TECHNICAL QUALITY: Adequate. FINDINGS: There is a single intrauterine fetus. The fetus is in a cephalic presentation. There is demonstrated cardiac activity with a heart rate of 151 bpm. There is a normal amniotic fluid volume. The largest amniotic fluid pocket measures 4.6 cm x 3.9 cm. The amniotic fluid index (RENAN) is 17.9 cm. The placenta is posterior in location and is not low lying. There are Grade 1 placental changes. Age by LMP: 36 weeks, 1 days. STEPHAN by LMP: March 11, 2024. BIOPHYSICAL PROFILE: Breathing Movements (FBM): 2 Gross Body Movements (GBM): 2 Tone (FT): 2 Amniotic Fluid Volume (AFV): 2 TOTAL SCORE: 8 / 8 US/Biophysical Prof W/O Non Stres IMPRESSION: Normal biophysical profile of 10/15. Electronically Signed: Jonathan Fontaine MD at 12:04 EST ,
[2024-02-13 11:47] VITALS: BMI 43.5
[2024-02-13 11:54] VITALS: BP 134/82; PULSE 84
[2024-02-13 11:55] VITALS: PULSE 64; RESP 18; TEMP 37; O2SAT 97
[2024-02-13 11:57] VITALS: PULSE 64; O2SAT 97
--- NOTE | 2024-02-13 12:11 | OB.TRI.PN ---
Progress Notes Date of Service: 02/13/24 Progress Note: Patient presents for triage evaluation secondary to nonreactive NST in the office at 36 weeks. FHT: 145 Moderate variability reactive no decelerations category I tracing [place]: no Contractions Assessment and plan: BPP 8/8, Reactive NST, reassuring maternal and status patient discharged to home to follow-up at next appt. See problem list details for additional plan information. Charges/Coding Multi Select Codes Urinary/Genital Urinary/Genital CPT Codes: 94413-60 non-stress test Interp Assessment & Plan (1) Non-reactive NST (non-stress test): COMMENT: BPP 8, d/c home (2) Nausea and vomiting during : (3) Obesity affecting : QUALIFIERS: Trimester: third trimester Obesity type affecting : unspecified obesity Qualified Code(s): O99.213 - Obesity complicating , third trimester COMMENT: A1C nl -BMI 42 at NOB plan growth us at 32 and 36 weeks, nsts weekly starting at 34 weeks (4) Supervision of high-risk : QUALIFIERS: Trimester: third trimester Qualified Code(s): O09.93 - Supervision of high risk , unspecified, third trimester COMMENT: PRR, , STEPHAN 03/11/24, Leonardo (5) : QUALIFIERS: Weeks of gestation: 36 weeks Qualified Code(s): Z3A.36 - 36 weeks gestation of COMMENT: discussed genetic & carrier testing, declined
[2024-02-13 13:42] VITALS: BP 132/79; PULSE 107
== END 2024-02-13 12:35 | disposition home or self-care (01) ==
LOC: WPOUT 10:30 → WP 10:30
PROVIDERS: Referring Provider Advanced Practice Midwife; Visit Provider Advanced Practice Midwife
DX: O21.2 Late vomiting of pregnancy (principal); O99.213 Obesity complicating pregnancy, third trimester; Z3A.36 36 weeks gestation of pregnancy
CPT/HCPCS: 59025; 59050; 76819; 87081; 99221; G0378

== ENCOUNTER 2024-02-20 09:26 | Outpatient (CLI) | payer MEDICAID, SELFPAY ==
[2024-02-20] VITALS (10 sets, daily range): BP systolic 135–143; BP diastolic 66–80; PULSE 73–83; O2SAT 96–99; BMI 43.4
--- NOTE | 2024-02-21 10:58 | OB.TRI.HP_ITS ---
HPI - General General Date of Service: 02/20/24 HPI Narrative ENMANUEL MACIAS, is a 28 F who [id number] at 37.1 with drop in fhr on nst in office. presented to [facility] for prolonged monitoring. Maternal Data Information STEPHAN Calculator Estimated Delivery Date Method Current WG Current Estimate 03/11/24 LMP (Certain) 37w 2d PFSH PFSH Medical History Amenorrhea Chemical Home Medications ?Medication ?Instructions ?Recorded ?Last Taken ?Type multivitamin no.47-iron fum 27 1 cap PO DAILY 07/08/23 02/13/24 08:00 History mg-folate no.1 1 mg-dha 300 mg 1 cap capsule (PNV-DHA) famotidine 20 mg tablet (Pepcid) 20 mg PO DAILY #30 tabs 12/25/23 02/13/24 08:00 Rx 20 mg Allergy/AdvReac Type Severity Reaction Status Date / Time mike Allergy Severe Anaphylaxis Verified 02/20/24 09:43 adhesive Allergy Intermediate Rash Verified 02/20/24 09:43 Sulfa (Sulfonamide AdvReac Intermediate Diarrhea Verified 02/20/24 09:43 Antibiotics) Social History adopted: No household members: spouse and family current occupational status: employed current occupation: [employer] current occupational exposures/hazards: Yes (extreme heat) pets and animals: Yes (Avoid litterbox) pets and animals: cat(s) and other details: yulissa history of recent travel: Yes ([place]) out of state: Yes out of country: No sexually active: Yes Smoking Status: Never smoker alcohol intake: current alcohol intake frequency: holidays/special occasions only details: not while substance use type: does not use diet: other well-balanced diet: daily or most days caffeine: No eating out: rarely or never during the past year weight has: increased > 10 lbs what type of physical activity do you participate in: walking frequency: 5-6 times per week duration: 60-90 minutes/day janae/moravian: Sabianist seatbelt use: always do you feel safe at home: Yes additional social history: Leonardo History 2 Elective abortions Hx Para 0 Spontaneous abortions 1 Hx # Term Pregnancies Ectopic pregnancies Hx # Pregnancies Multiple births # of living children 0 Past Pregnancies Del. Date Name GA/Weeks Outcome Route Bth Weight Infant Gen Labor Lgth Anesthesia Del Hugo Provider FOB 05/09/22 5 spontaneous Visit Details Expected Delivery Route/Plan Labor Preferences- CB/BF classes: encouraged labor support person: Leonardo labor intervention preferences: [] pain management options preferred: epidural if requested cut cord/dad catch: maybe : yes PP control planned: discussed discussed possible routes of delivery and associated risks: [] special requests: [] Plans Covid status: [] Flu vaccine: declines Tdap vaccine: given Rhogam: na LARC form signed: yes Problem list reviewed and updated with the most current plan of care details and appropriate orders placed. Relevant counseling for the gestational age provided. Continue routine care and follow up unless otherwise noted in visit notes/problem list details OB Flowsheet Initial Weight: Not Recorded Date -?-?-?-?-?-?-?-?-?-?-?-?- EGA Weight BP Urine Prot -?-?-?-?-?-?-?-?-?-?-?-?- Glucose FHR FuHt Pres Dilation -?-?-?-?-?-?-?-?-?-?-?-?- Effaced St Visit Note 07/24/23 -?-?-?-?-?-?-?-?-?-?-?-?- 7w 0d 268 lb 136/79 -?-?-?-?-?-?-?-?-?-?-?-?- 140 -?-?-?-?-?-?-?-?-?-?-?-?- KW- CRL cons wit h dates. Declines NIPT 08/13/23 -?-?-?-?-?-?-?-?-?-?-?-?- 9w 6d 265 lb 8 oz Trace -?-?-?-?-?-?-?-?-?-?-?-?- Negative -?-?-?-?-?-?-?-?-?-?-?-?- Nurse visit with vaginal twinges-UA neg. Trace ketones. Urine culture pending. Force fluids. Reassure. No bleeding/dischage. 08/21/23 -?-?-?-?-?-?-?-?-?-?-?-?- 11w 0d 269 lb 126/83 Negative -?-?-?-?-?-?-?-?-?-?-?-?- Negative 160 -?-?-?-?-?-?-?-?-?-?-?-?- SM- SM- no vb cramping ordered a natomy scan. 09/22/23 -?-?-?-?-?-?-?-?-?-?-?-?- 15w 4d 268 lb 4 oz 125/86 Nega tive -?-?-?-?-?-?-?-?-?-?-?-?- Negative 160 -?-?-?-?-?-?-?-?-?-?-?-?- JV- bedside scan performed today for patient reassurance. due to obesity unabl e to determine define structures. healthy diet encouraged. Pt complained of pain with pressing with the probe. no obvious reasons to her discomfort. likely anxiety. explained they will need to press during anatomy scan and to be prepared that the sensation is normal. 10/29/23 -?-?-?-?-?-?-?-?-?-?-?-?- 20w 6d 269 lb 126/85 Negative -?-?-?-?-?-?-?-?-?-?-?-?- Negative 155 -?-?-?-?-?-?-?-?-?-?-?-?- JV- no lof, vagi nal bleeding, or cramping. normal anatomy scan. consider monthly growth scans after 28 weeks due to obesity. she has sciatic nerve pain. we discussed treatment. also has some vertigo and acid reflux. recommend bonine and pepcid complete. 11/28/23 -?-?-?-?-?-?-?-?-?-?-?-?- 25w 1d 270 lb 126/80 Negative -?-?-?-?-?-?-?-?-?-?-?-?- Negative 145 -?-?-?-?-?-?-?-?-?-?-?-?- KW- no vb/lof/ct x. good fm depression sx discussed SSRI and counseling. declining counseling at this time due to cost. will talk to about zoloft and let us know 12/25/23 -?-?-?-?-?-?-?-?-?-?-?-?- 29w 0d 275 lb 125/86 Negative -?-?-?-?-?-?-?-?-?-?-?-?- Negative 150 30 -?-?-?-?-?-?-?-?-?-?-?-?- SM- no vb lof go od fm no regular ctx ordered pepcid, discussed tdap 01/08/24 -?-?-?-?-?-?-?-?-?-?-?-?- 31w 0d 277 lb 129/84 Negative -?-?-?-?-?-?-?-?-?-?-?-?- Negative 144 32 -?-?-?-?-?-?-?-?-?-?-?-?- KW- no vb/lof/ct x. good fm. Colace for constipation. Tdap today. 32 wk US 01/1601/22/24 -?-?-?-?-?-?-?-?-?-?-?-?- 33w 0d 277 lb 126/82 Negative -?-?-?-?-?-?-?-?-?-?-?-?- Negative 146 35 -?-?-?-?-?-?-?-?-?-?-?-?- MH-No Vb, LOF. G ood FM. Recent growth US wnl, rpt scheduled 36wk. Start NSTs next week 02/02/24 -?-?-?-?-?-?-?-?-?-?-?-?- 34w 4d 277 lb 6 oz 123/82 Nega tive -?-?-?-?-?-?-?-?-?-?-?-?- Negative 150 -?-?-?-?-?-?-?-?-?-?-?-?- JV- nst only tod ay, however had 2 small variabiles. Reactive overall but sending to L&D for a bpp. 02/13/24 -?-?-?-?-?-?-?-?-?-?-?-?- 36w 1d 278 lb 120/83 -?-?-?-?-?-?-?-?-?-?-?-?- 145 -?-?-?-?-?-?-?-?-?-?-?-?- KW- no vb/lof/ct x. good fm. NST today. KW- no vb/lof/ctx. good fm. NST today- nonreactive. to [facility] for BPP. GBS today planning BPPs now per pt request. 02/20/24 -?-?-?-?-?-?-?-?-?-?-?-?- 37w 1d 277 lb 125/85 Negative -?-?-?-?-?-?-?-?-?-?-?-?- Negative 37.5 Cephalic 0 -?-?-?-?-?-?--?-?-?-?-?-?- -3 JV- grow th scan from friday shows an abdominal circ in the 93rd%. She had an episode of pain and shaking after having bowel movement and thinks baby is coming early. cx is closed/thick/ high today. NST reactive JV- growth scan from friday shows an abdominal circ in the 93rd%. She had an episode of pain and shaking after having bowel movement and thinks baby is co cassandra early. cx is closed/thick/ high today. unable to do the NST due to patient feeling dizzy an nauseated on the monitor and moving from her back to her side. She eventually became clammy and dizzy. bp was unrecordable x 2. She was wheeled down to L&D for urgent monitoring. NST FHR Rate Baby A Baseline: 120-140 Variability:: Moderate Accelerations:: 15 x 15 Decelerations:: None NST Reactive:: Yes FHR Category:: Category I Assessment & Plan (1) NST (non-stress test) reactive on surveillance: COMMENT: corrective baseline after acceleration noted. reactive nst. reassuring FM. pt declines bpp PLAN: Plan Patient presents for triage evaluation secondary to drop in FHR in office from 1 40 to 120. this occurred after acceleration. had additional accelerations without overcorrection. pt with family emergency and declines BPP today. reviewed kick counts and will obtain daily. Dr. Perkins and I reviewed and agrees with management. FHT: Moderate variability reactive no decelerations category I tracing [place]: no Contractions Assessment and plan: Reactive NST, reassuring maternal and status patient discharged to home to follow-up in office/[facility] PRN. See problem list details for additional plan information. Charges/Coding Procedures Urinary/Genital 52xxx-59xxx: 44371-66 non-stress test Interp
== END 2024-02-20 10:55 | disposition home or self-care (01) ==
LOC: WPOUT 09:28 → WP 09:29
PROVIDERS: Referring Provider Registered Nurse; Visit Provider Registered Nurse
DX: O36.8330 Maternal care for abnormalities of the fetal heart rate or rhythm, third trimester, not applicable or unspecified (principal); Z3A.37 37 weeks gestation of pregnancy
CPT/HCPCS: 59025; 59050; 99221; G0378

== ENCOUNTER 2024-02-23 08:50 | Outpatient (CLI) | payer MEDICAID, SELFPAY ==
--- NOTE | 2024-02-23 07:55 | US_ITS ---
STUDY: OBSTETRICAL ULTRASOUND - BIOPHYSICAL PROFILE REASON FOR EXAM: Female, 28 years old Obesity affecting LMP: June 05, 2023. PRIOR ULTRASOUND: Comparison is made with prior study dated February 13, 2024. TECHNIQUE: Transabdominal TECHNICAL QUALITY: Adequate. FINDINGS: There is a single intrauterine fetus. The fetus is in a cephalic presentation. There is demonstrated cardiac activity with a heart rate of 152 bpm. There is a normal amniotic fluid volume. The largest amniotic fluid pocket measures 5.8 cm x 3.6 cm cm. The amniotic fluid index (RENAN) is 6 cm. The placenta is anterior in location and is not low lying. There are Grade 1 placental changes. Age by LMP: 37 weeks, 4 days. STEPHAN by LMP: March 11, 2024. BIOPHYSICAL PROFILE: Breathing Movements (FBM): 0 Gross Body Movements (GBM): 2 Tone (FT): 2 Amniotic Fluid Volume (AFV): 2 TOTAL SCORE: US/Biophysical Prof W/O Non Stres IMPRESSION: biophysical profile of 08/15. Electronically Signed: Jonathan Fontaine MD at 9:21 EST ,
[2024-02-23 09:04] VITALS: RESP 16; TEMP 36.4
[2024-02-23 09:05] VITALS: BP 129/76; PULSE 86
[2024-02-23 09:10] VITALS: BMI 43.2
--- NOTE | 2024-02-23 10:21 | OB.TRI.PN ---
Progress Notes Date of Service: 02/23/24 Progress Note: Patient presents for triage evaluation secondary to BPP /8 at 37 weeks. FHT: 130 Moderate variability reactive no decelerations category I tracing [place]: no Contractions Assessment and plan: final BPP 8/10, Reactive NST, reassuring maternal and status patient discharged to home to follow-up in office. See problem list details for additional plan information. Charges/Coding Multi Select Codes Urinary/Genital Urinary/Genital CPT Codes: 86271-98 non-stress test Interp Assessment & Plan (1) NST (non-stress test) reactive on surveillance: COMMENT: corrective baseline after acceleration noted. reactive nst. reassuring FM. pt declines bpp (2) Non-reactive NST (non-stress test): COMMENT: BPP 10/15, d/c home (3) Nausea and vomiting during : (4) Obesity affecting : QUALIFIERS: Trimester: third trimester Obesity type affecting : unspecified obesity Qualified Code(s): O99.213 - Obesity complicating , third trimester COMMENT: A1C nl -BMI 42 at NOB plan growth us at 32 and 36 weeks, nsts weekly starting at 34 weeks (5) Supervision of high-risk : QUALIFIERS: Trimester: third trimester Qualified Code(s): O09.93 - Supervision of high risk , unspecified, third trimester COMMENT: PRR, , STEPHAN 03/11/24, Leonardo (6) : QUALIFIERS: Weeks of gestation: 37 weeks Qualified Code(s): Z3A.37 - 37 weeks gestation of COMMENT: GBS neg, discussed genetic & carrier testing, declined
== END 2024-02-23 10:13 | disposition home or self-care (01) ==
LOC: WPOUT 08:55 → US 08:56 → WPOUT 08:56 → WP 08:56
PROVIDERS: Referring Provider Advanced Practice Midwife; Visit Provider Advanced Practice Midwife
DX: O36.8330 Maternal care for abnormalities of the fetal heart rate or rhythm, third trimester, not applicable or unspecified (principal); O21.2 Late vomiting of pregnancy; O99.213 Obesity complicating pregnancy, third trimester; Z3A.37 37 weeks gestation of pregnancy
CPT/HCPCS: 59025; 59050; 76819; 99221; G0378

== ENCOUNTER → 2024-03-01 | Outpatient (CLI) | payer MEDICAID, SELFPAY ==
--- NOTE | 2024-03-01 07:41 | US_ITS ---
INDICATION: Obesity affecting EXAMINATION: Ultrasound US Biophysical Profile W/O Nonst TECHNIQUE: Transabdominal pelvic ultrasound was performed. COMPARISON: Prior study dated: February 23, 2024 FINDINGS: INTRAUTERINE GESTATION(s): Single. HEART MOTION is 143 bpm. AMNIOTIC FLUID INDEX (RENAN): 10.4 BIOPHYSICAL PROFILE (BPP): 10/15 -- Breathin/2. -- Movement: 2/2. -- Tone: 2/2. --RENAN: 2/2. PRESENTATION: Cephalic PLACENTA: Posterior. US/Biophysical Prof W/O Non Stres IMPRESSION: Single live intrauterine with a biophysical profile of 10/15 . Electronically Signed: Shakila Gaytan MD at 9:20 EST ,
== END | disposition home or self-care (01) ==
LOC: US 07:40
PROVIDERS: Referring Provider Advanced Practice Midwife; Visit Provider Advanced Practice Midwife
DX: O99.213 Obesity complicating pregnancy, third trimester (principal); Z3A.00 Weeks of gestation of pregnancy not specified
CPT/HCPCS: 76819

== ENCOUNTER 2024-03-04 12:07 | Inpatient (IN) | payer MEDICAID, SELFPAY ==
[2024-03-04] VITALS (23 sets, daily range): BP systolic 130–170; BP diastolic 68–96; PULSE 52–180; RESP 14–18; TEMP 36.4–37.1; O2SAT 78–100; BMI 43.6
--- NOTE | 2024-03-04 09:35 | US_ITS ---
We are attempting to reach an attending provider to discuss findings. An addendum with communication details will be sent when the communication is complete. HISTORY: r/o pre-e, decreased movement. TECHNIQUE: Transabdominal pelvic ultrasound was performed. 22 images. COMPARISON: 03/01/2024. FINDINGS: INTRAUTERINE GESTATION(s): Single. PRESENTATION: Cephalic. PLACENTA: Posterior, grade 3. No placenta previa. HEART MOTION: 144 bpm. AMNIOTIC FLUID INDEX (RENAN): 9.6 cm. Largest fluid pocket 4.6 cm. BIOPHYSICAL PROFILE (BPP): 4 /8 -- Breathin /2. -- Movement: 0 /2. -- Tone: 2/2. --RENAN: 2/2. US/Biophysical Prof W/O Non Stres IMPRESSION: Single living intrauterine with an abnormal 4/8 biophysical profile score. Electronically Signed: Yulisa Bazzi MD at 13:20 EST ,
[2024-03-04 13:04] LABS: Absolute Lymphocyte Count 2.04 X10^3/uL (0.83-4.51); Absolute Neutrophil Count 10.4 X10^3/uL (2.0-7.7); Basophil# 0.05 X10^3/uL; Basophil% 0.4 % (0-1); Eosinophil# 0.04 X10^3/uL; Eosinophils% 0.3 % (0-5); Hematocrit 37.8 % (37-47); Hemoglobin 12.3 g/dL (12.0-15.0); Lymphocyte # 2.04 X10^3/ul (0.83-4.51); Lymphocyte % 15.5 % (19-41); Mean Corp Hgb Conc 32.5 g/dL (32-36); Mean Corpuscular Hgb 29.1 pg (27.0-32.0); Mean Corpuscular Volume 89.6 fL (81-99); Mean Platelet Vol. 10.9 fl (6.2-12.0); Monocyte# 0.63 X10^3/uL; Monocyte% 4.8 % (0-10); NRBC Flagged by Analyzer 0 % (0-5); Neutrophil # 10.35 X10^3/uL (2.7-7.7); Neutrophil % 78.4 % (47-70); Platelet Count 303 K/mm3 (150-450); RBC Distribution Width CV 13.4 % (11.6-14.6); RBC Distribution Width SD 43.7 fl (35.1-43.9); Red Blood Count 4.22 M/mm3 (4.2-5.4); White Blood Count 13.2 K/mm3 (4.4-11.0)
--- NOTE | 2024-03-04 13:18 | HP.PCM.OB_ITS ---
HPI - General General Date of Admission: 03/04/24 Date of Service: 03/04/24 HPI Narrative ENMANUEL MACIAS, is a 28 F 39.0 who presents to unit after being seen in the office and reported decreased movement. BPP was 4/8. NST is reactive. decision made for induction of labor Maternal Data Information STEPHAN Calculator Estimated Delivery Date Method Current WG Current Estimate 03/11/24 LMP (Certain) 39w 0d Final STEPHAN: 03/11/24 Final STEPHAN Source: US >20 weeks Gestational age: 39.0 PFSH PFS Medical History (Updated 03/04/24 @ 13:21 by Perla Slater CNM) Non-reactive NST (non-stress test) Amenorrhea Chemical Home Medications ?Medication ?Instructions ?Recorded ?Last Taken ?Type multivitamin no.47-iron fum 27 1 cap PO DAILY 07/08/23 02/23/24 History mg-folate no.1 1 mg-dha 300 mg capsule (PNV-DHA) famotidine 20 mg tablet (Pepcid) 20 mg PO DAILY #30 tabs 12/25/23 02/23/24 Rx Allergy/AdvReac Type Severity Reaction Status Date / Time mike Allergy Severe Anaphylaxis Verified 03/04/24 09:45 adhesive Allergy Intermediate Rash Verified 03/04/24 09:45 Sulfa (Sulfonamide AdvReac Intermediate Diarrhea Verified 03/04/24 09:45 Antibiotics) Social History adopted: No household members: spouse and family current occupational status: employed current occupation: [employer] current occupational exposures/hazards: Yes (extreme heat) pets and animals: Yes (Avoid litterbox) pets and animals: cat(s) and other details: yulissa history of recent travel: Yes ([place]) out of state: Yes out of country: No sexually active: Yes Smoking Status: Never smoker alcohol intake: current alcohol intake frequency: holidays/special occasions only details: not while substance use type: does not use diet: other well-balanced diet: daily or most days caffeine: No eating out: rarely or never during the past year weight has: increased > 10 lbs what type of physical activity do you participate in: walking frequency: 5-6 times per week duration: 60-90 minutes/day janae/judaism: Jainism seatbelt use: always do you feel safe at home: Yes additional social history: Leonardo History 2 Elective abortions Hx Para 0 Spontaneous abortions 1 Hx # Term Pregnancies Ectopic pregnancies Hx # Pregnancies Multiple births # of living children 0 Past Pregnancies Del. Date Name GA/Weeks Outcome Route Bth Weight Infant Gen Labor Lgth Anesthesia Del [facility] Provider FOB 05/09/22 5 spontaneous Visit Details Expected Delivery Route/Plan Labor Preferences- CB/BF classes: encouraged labor support person: Leonardo labor intervention preferences: [] pain management options preferred: epidural if requested cut cord/dad catch: maybe : yes PP control planned: discussed discussed possible routes of delivery and associated risks: [] special requests: [] Plans Covid status: [] Flu vaccine: declines Tdap vaccine: given Rhogam: na LARC form signed: yes Problem list reviewed and updated with the most current plan of care details and appropriate orders placed. Relevant counseling for the gestational age provided. Continue routine care and follow up unless otherwise noted in visit notes/problem list details OB Flowsheet Initial Weight: Not Recorded Date -?-?-?-?-?-?-?-?-?-?-?-?- EGA Weight BP Urine Prot -?-?-?-?-?-?-?-?-?-?-?-?- Glucose FHR FuHt Pres Dilation -?-?-?-?-?-?-?-?-?-?-?-?- Effaced St Visit Note 07/24/23 -?-?-?-?-?-?-?-?-?-?-?-?- 7w 0d 268 lb 136/79 -?-?-?-?-?-?-?-?-?-?-?-?- 140 -?-?-?-?-?-?-?-?-?-?-?-?- KW- CRL cons wit h dates. Declines NIPT 08/13/23 -?-?-?-?-?-?-?-?-?-?-?-?- 9w 6d 265 lb 8 oz Trace -?-?-?-?-?-?-?-?-?-?-?-?- Negative -?-?-?-?-?-?-?-?-?-?-?-?- Nurse visit with vaginal twinges-UA neg. Trace ketones. Urine culture pending. Force fluids. Reassure. No bleeding/dischage. 08/21/23 -?-?-?-?-?-?-?-?-?-?-?-?- 11w 0d 269 lb 126/83 Negative -?-?-?-?-?-?-?-?-?-?-?-?- Negative 160 -?-?-?-?-?-?-?-?-?-?-?-?- SM- SM- no vb cramping ordered a natomy scan. 09/22/23 -?-?-?-?-?-?-?-?-?-?-?-?- 15w 4d 268 lb 4 oz 125/86 Nega tive -?-?-?-?-?-?-?-?-?-?-?-?- Negative 160 -?-?-?-?-?-?-?-?-?-?-?-?- JV- bedside scan performed today for patient reassurance. due to obesity unable to determine define structures. healthy diet encouraged. Pt complained of pain with pressing with the probe. no obvious reasons to her discomfort. likely anxiety. explained they will need to press during anatomy scan and to be prepared that the sensation is normal. 10/29/23 -?-?-?-?-?-?-?-?-?-?-?-?- 20w 6d 269 lb 126/85 Negative -?-?-?-?-?-?-?-?-?-?-?-?- Negative 155 -?-?-?-?-?-?-?-?-?-?-?-?- JV- no lof, vagi nal bleeding, or cramping. normal anatomy scan. consider monthly growth scans after 28 weeks due to obesity. she has sciatic nerve pain. we discussed treatment. also has some vertigo and acid reflux. recommend bonine and pepcid complete. 11/28/23 -?-?-?-?-?-?-?-?-?-?-?-?- 25w 1d 270 lb 126/80 Negative -?-?-?-?-?-?-?-?-?-?-?-?- Negative 145 -?-?-?-?-?-?-?-?-?-?-?-?- KW- no vb/lof/ct x. good fm depression sx discussed SSRI and counseling. declining counseling at this time due to cost. will talk to about zoloft and let us know 12/25/23 -?-?-?-?-?-?-?-?-?-?-?-?- 29w 0d 275 lb 125/86 Negative -?-?-?-?-?-?-?-?-?-?-?-?- Negative 150 30 -?-?-?-?-?-?-?-?-?-?-?-?- SM- no vb lof go od fm no regular ctx ordered pepcid, discussed tdap 01/08/24 -?-?-?-?-?-?-?-?-?-?-?-?- 31w 0d 277 lb 129/84 Negative -?-?-?-?-?-?-?-?-?-?-?-?- Negative 144 32 -?-?-?-?-?-?-?-?-?-?-?-?- KW- no vb/lof/ct x. good fm. Colace for constipation. Tdap today. 32 wk US 01/1601/22/24 -?-?-?-?-?-?-?-?-?-?-?-?- 33w 0d 277 lb 126/82 Negative -?-?-?-?-?-?-?-?-?-?-?-?- Negative 146 35 -?-?-?-?-?-?-?-?-?-?-?-?- MH-No Vb, LOF. G ood FM. Recent growth US wnl, rpt scheduled 36wk. Start NSTs next week 02/02/24 -?-?-?-?-?-?-?-?-?-?-?-?- 34w 4d 277 lb 6 oz 123/82 Nega tive -?-?-?-?-?-?-?-?-?-?-?-?- Negative 150 -?-?-?-?-?-?-?-?-?-?-?-?- JV- nst only tod ay, however had 2 small variabiles. Reactive overall but sending to L&D for a bpp. 02/13/24 -?-?-?-?-?-?-?-?-?-?-?-?- 36w 1d 278 lb 120/83 -?-?-?-?-?-?-?-?-?-?-?-?- 145 -?-?-?-?-?-?-?-?-?-?-?-?- KW- no vb/lof/ct x. good fm. NST today. KW- no vb/lof/ctx. good fm. NST today- nonreactive. to WP for BPP. GBS today planning BPPs now per pt request. 02/20/24 -?-?-?-?-?-?-?-?-?-?-?-?- 37w 1d 277 lb 125/85 Negative -?-?-?-?-?-?-?-?-?-?-?-?- Negative 37.5 Cephalic 0 -?-?-?-?-?-?-?-?-?-?-?-?- -3 JV- grow th scan from friday shows an abdominal circ in the 93rd%. She had an episode of pain and shaking after having bowel movement and thinks baby is coming early. cx is closed/thick/ high today. NST reactive JV- growth scan from friday shows an abdominal circ in the 93rd%. She had an episode of pain and shaking after having bowel movement and thinks baby is coming early. cx is closed/thick/ high today. unable to do the NST due to patient feeling dizzy an nauseated on the monitor and moving from her back to her side. She eventually became clammy and dizzy. bp was unrecordable x 2. She was wheeled down to L&D for urgent monitoring. 02/27/24 -?-?-?-?-?-?-?-?-?-?-?-?- 38w 1d 278 lb 6 oz 120/77 -?-?-?-?-?-?-?-?-?-?-?-?- 155 39 Cephalic 1 -?-?-?-?-?-?-?-?-?-?-?-?- SM- no vb lof go od fm n oreulgar ctx. lost mother in law last week 03/04/24 -?-?-?-?-?-?-?-?-?-?-?-?- 39w 0d 279 lb 4 oz 140/84 134/85 134/84 -?-?-?-?-?-?-?-?-?-?-?-?- 145 39 Cephalic -?-?-?-?-?-?-?-?-?-?-?-?- SM- no vb lof so me dec fm no regular ctx no JACKSON BV co some diarrhea. to l and d for bpp today NST FHR Rate Baby A Baseline: 125 Variability:: Moderate Accelerations:: 15 x 15 Decelerations:: None NST Reactive:: Yes FHR Category:: Category I Uterine Activity:: none ROS Constitutional Constitutional: Denies change in weight, fatigue, fever(s), headache(s), poor appetite or weakness Eyes Eyes: Denies blurry vision, change in vision, floaters, seeing flashes or spots in vision ENT HEENT: Denies dizziness, headache(s), loss taste/smell or sore throat Cardiovascular Cardiovascular: Denies chest pain, dizziness, dyspnea, irregular heart rhythm, lightheadedness, palpitations or rapid heart rate Respiratory/Chest Respiratory/Chest: Denies change in mental status, chest tightness, cough, dyspnea or breast pain Gastrointestinal Gastrointestinal: Denies anorexia, chewing difficulty, constipation, diarrhea or weight changes Genitourinary Genitourinary: Denies difficulty urinating, dysuria, flank pain, genital pain, urinary frequency or urinary urgency Musculoskeletal Musculoskeletal: Denies back pain, difficulty walking, extremity pain, joint pain, muscle cramps or muscle weakness Integumentary Integumentary: Denies lesions or unusual bruising Neurologic Neurologic: Denies abnormal movements, abnormal speech, dizziness, numbness, seizure-like activity, syncope or weakness Psychiatric Psychiatric: Denies behavioral changes, change in appetite, confusion, depression, homicidal ideation, suicidal ideation or suicidal thoughts Endocrine Endocrinology: Denies excessive sweating, polydipsia or polyuria Hematologic/Lymphatic Hematologic/Lymphatic: Denies anemia Allergic/Immunologic Allergic/Immunologic: Denies itchy eyes, lip swelling, throat swelling, tongue swelling or wheezing Vital Signs Vital Signs Vital Signs: 03/04/24 09:27 03/04/24 09:27 03/04/24 09:29 Temperature Temperature Source Pulse Rate 81 92 Respiratory Rate Blood Pressure 142/68 H BP Systolic 142 BP Diastolic 68 Pulse Ox 03/04/24 09:29 03/04/24 09:31 03/04/24 09:31 Temperature Temperature Source Tympanic Pulse Rate Respiratory Rate 14 Blood Pressure BP Systolic BP Diastolic Pulse Ox 97 03/04/24 09:31 03/04/24 09:31 03/04/24 09:42 Temperature 98.4 F Temperature Source Pulse Rate Respiratory Rate Blood Pressure 141/74 H BP Systolic 141 BP Diastolic 74 Pulse Ox 98 03/04/24 09:42 03/04/24 09:57 03/04/24 09:57 Temperature Temperature Source Pulse Rate 78 74 Respiratory Rate Blood Pressure 132/77 H BP Systolic 132 BP Diastolic 77 Pulse Ox 03/04/24 10:12 03/04/24 10:12 03/04/24 10:27 Temperature Temperature Source Pulse Rate 66 Respiratory Rate Blood Pressure 133/79 H 130/79 H BP Systolic 133 130 BP Diastolic 79 79 Pulse Ox 03/04/24 10:27 03/04/24 10:42 03/04/24 10:42 Temperature Temperature Source Pulse Rate 73 72 Respiratory Rate Blood Pressure 132/85 H BP Systolic 132 BP Diastolic 85 Pulse Ox Weight Weight: 278 lb 6 oz Body Mass Index (BMI) 43.6 Physical Exam Const alert, oriented x3 and no apparent distress General Appearance: cooperative Orientation / Consciousness: awake HEENT normocephalic Neck full ROM Lymph Lymphatic: no lymphadenopathy noted Chest inspection of chest normal Resp normal respiratory effort and normal air movement Effort and Inspection: able to speak in complete sentences and symmetric chest movement GI soft to palpation and non-tender Inspection: gravid Palpation: soft; Negative for tender external exam normal Manual OB Exam: dilated 0.5 and effaced 50 Back/Spine normal to inspection Extremity normal to inspection and full ROM Skin no rashes or lesions noted Psych mental status grossly normal Appearance: grossly normal Speech: normal speech Labs Labs Labs: Blood Type A POSITIVE Antibody Screen NEGATIVE Hct 37.8 % (37-47) Hgb 12.3 g/dL (12.0-15.0) Syphilis Total Ab Non-reactive Rubella IgG Antibody Reactive (Nonreactive) Hep Bs Antigen Non-Reactive (Nonreactive) Hepatitis C Antibody Non-Reactive (Nonreactive) Chlamydia DNA (CHRISTOPHER) Negative (Negative) N.gonorrhoeae DNA (CHRISTOPHER) Negative (Negative) HIV 1&2 Antibody Non-Reactive (Nonreactive) Glucose 1 Hr 50 gm 127 mg/dL (70-140) Assessment & Plan (1) Encounter for induction of labor: PLAN: Patient presents IOL, plan management for with cytotec/arnold bulb/ pitocin/AROM. Pain management: plans epidural. GBS negative. Management of any complications: see problem list I have reviewed the [facility] and made any clinically relevant updates. Dr Perkins aware of assessment, plan and admission. agrees with above (2) NST (non-stress test) reactive on surveillance: COMMENT: corrective baseline after acceleration noted. reactive nst. reassuring FM. pt declines bpp (3) Nausea and vomiting during : (4) Obesity affecting : QUALIFIERS: Trimester: third trimester Obesity type affecting : unspecified obesity Qualified Code(s): O99.213 - Obesity complicating , third trimester COMMENT: A1C nl -BMI 42 at NOB plan growth us at 32 and 36 weeks, nsts weekly starting at 34 weeks (5) Supervision of high-risk : QUALIFIERS: Trimester: third trimester Qualified Code(s): O09.93 - Supervision of high risk , unspecified, third trimester COMMENT: PRR, , STEPHAN 03/11/24, Leonardo (6) : QUALIFIERS: Weeks of gestation: 39 weeks Qualified Code(s): Z3A.39 - 39 weeks gestation of COMMENT: GBS neg, discussed genetic & carrier testing, declined Charges/Coding Multi Select Codes Urinary/Genital Urinary/Genital CPT Codes: No Charge
[2024-03-04 13:21] LABS: Protein, Urine (Random) 15.6 mg/dL (<11.9); Protein:Creat Ratio 80 mg/g CRE (0-200)
[2024-03-04] MEDS: miSOPROStol 25 MCG TABLET VAGINAL ×2 (13:58→18:22)
[2024-03-04] MEDS: Lactated Ringers 1,000 ML 50 ML IV (14:00)
[2024-03-04 14:06] LABS: AST(SGOT) 15 U/L (15-37); Alanine Aminotransfer ALT/SGPT 27 U/L (13-56); Creatinine, Serum 0.61 mg/dL (0.55-1.02); EST Glomerular Filtration Rate 124 mL/min (>60); Est Glom Filt Rate - Afr Amer 150 mL/min (>60); Estimated Creatinine Clearance 191.29 ml/min; Uric Acid 3.8 mg/dL (2.6-6.0)
[2024-03-04 14:26] LABS: Syphilis Antibodies Non-reactive
--- NOTE | 2024-03-04 22:27 | PCM.PN.BLA ---
Progress Note Coping well with contractions current tracing: FHT: 130 Moderate variability reactive no decelerations category I tracing [place]: 2-3 minutes Contractions-getting stronger per patient Membranes:intact SVE:80/-1 A/P: Continue with position changes Titrate pitocin per protocol Epidural per anesthesia GBS neg Anticipate Dr Perkins aware of above assessment and agrees with plan of care Assessment & Plan Assessment/Plan (1) Encounter for induction of labor: (2) NST (non-stress test) reactive on surveillance: (3) Nausea and vomiting during : (4) Obesity affecting : QUALIFIERS: Trimester: third trimester Obesity type affecting : unspecified obesity Qualified Code(s): O99.213 - Obesity complicating , third trimester (5) Supervision of high-risk : QUALIFIERS: Trimester: third trimester Qualified Code(s): O09.93 - Supervision of high risk , unspecified, third trimester (6) : QUALIFIERS: Weeks of gestation: 39 weeks Qualified Code(s): Z3A.39 - 39 weeks gestation of Multi Select Codes Urinary/Genital Urinary/Genital CPT Codes: No Charge
[2024-03-04] MEDS: 0.9% Normal Saline Single 100 ML IV.SOLN. INTRA-UTER (22:46)
[2024-03-05] VITALS (58 sets, daily range): BP systolic 117–207; BP diastolic 58–104; PULSE 44–113; RESP 16–18; TEMP 36.4–37.4; O2SAT 92–100
--- NOTE | 2024-03-05 00:28 | PN_ITS ---
Progress Note Coping well with contractions-getting bolus for epidural. Olivares bulb out and plan for AROM with internal monitors current tracing: FHT: 135 Moderate variability reactive no decelerations category I tracing [place]: difficult to trace Contractions-palpating 3-5 minutes Membranes:intact SVE:5/75/-1 A/P: Continue with position changes Titrate pitocin per protocol Epidural per anesthesia GBS neg Anticipate Dr Perkins aware of above assessment and agrees with plan of care Assessment & Plan Assessment/Plan (1) Encounter for induction of labor: (2) NST (non-stress test) reactive on surveillance: (3) Nausea and vomiting during : (4) Obesity affecting : QUALIFIERS: Trimester: third trimester Obesity type affecting : unspecified obesity Qualified Code(s): O99.213 - Obesity complicating , third trimester (5) Supervision of high-risk : QUALIFIERS: Trimester: third trimester Qualified Code(s): O09.93 - Supervision of high risk , unspecified, third trimester (6) : QUALIFIERS: Weeks of gestation: 39 weeks Qualified Code(s): Z3A.39 - 39 weeks gestation of Multi Select Codes Urinary/Genital Urinary/Genital CPT Codes: No Charge
[2024-03-05] MEDS: Lactated Ringers 1,000 ML 999 ML IV (00:31)
[2024-03-05] MEDS: fentaNYL-bupivacaine (epidural) 100 ML BAG EPIDURAL ×2 (01:36→07:20)
--- NOTE | 2024-03-05 02:09 | PN_ITS ---
Progress Note comfortable with epidural current tracing: FHT: 135 Moderate variability reactive no decelerations category I tracing [place]: IUPC placed with AROM now tracing Contractions Membranes:[id number] light meconium SVE:5-6/70/-1 A/P: Continue with position changes Titrate pitocin per protocol Epidural per anesthesia GBS Neg Anticipate Dr Perkins aware of above assessment and agrees with plan of care Assessment & Plan Assessment/Plan (1) Encounter for induction of labor: (2) NST (non-stress test) reactive on surveillance: (3) Nausea and vomiting during : (4) Obesity affecting : QUALIFIERS: Trimester: third trimester Obesity type affecting : unspecified obesity Qualified Code(s): O99.213 - Obesity complicating , third trimester (5) Supervision of high-risk : QUALIFIERS: Trimester: third trimester Qualified Code(s): O09.93 - Supervision of high risk , unspecified, third trimester (6) : QUALIFIERS: Weeks of gestation: 39 weeks Qualified Code(s): Z3A.39 - 39 weeks gestation of Multi Select Codes Urinary/Genital Urinary/Genital CPT Codes: No Charge
[2024-03-05] MEDS: Mag Hydrox/Al Hydrox/Simeth 30 ML UDC PO (02:23)
[2024-03-05] MEDS: Oxytocin 15 Units/NS 250ml 15 UNITS/250 ML IV.SOLN 2 UNITS IV (02:30)
[2024-03-05] MEDS: Lactated Ringers 1,000 ML 50 ML IV (05:48)
[2024-03-05] MEDS: LACTATED RINGERS 500 ML 999 ML IV (05:48)
[2024-03-05] MEDS: Ondansetron 4 MG/2 ML Vial IV (08:40)
--- NOTE | 2024-03-05 08:41 | PCM.PN.CNM ---
Subjective Subjective having some break through discomfort with epidural, bolus infusing now. Objective Data Objective Data Vital Signs: Vital Signs Temp Pulse Resp BP Pulse Ox 97.6 F L 74 16 126/58 H 100 03/05/24 07:25 03/05/24 07:24 03/05/24 07:25 03/05/24 07:24 03/05/24 06:15 Weight: 278 lb 6 oz Body Mass Index (BMI) 43.6 Intake & Output: Intake and Output for Last 24 Hours 03/03/24 03/04/24 03/05/24 23:59 23:59 23:59 Intake Total 417.5 / 417.5 2099.33 / 2099.33 Output Total 600 / 600 Balance 417.5 / 417.5 1499.33 / 1499.33 Lab / Micro Data 03/04/24 12:45 03/04/24 13:20 Labs: Laboratory Results - last 24 hr 03/04/24 12:45: WBC 13.2 H, RBC 4.22, Hgb 12.3, Hct 37.8, MCV 89.6, MCH 29.1, MCHC 32.5, RDW Std Deviation 43.7, RDW Coeff of Adrianne 13.4, Plt Count 303, MPV 10.9, Immature Gran % (Auto) 0.600, Neut % (Auto) 78.4 H, Lymph % (Auto) 15.5 L, Atkinson % (Auto) 4.8, Eos % (Auto) 0.3, Baso % (Auto) 0.4, Absolute Neuts (auto) 10.4 H, Absolute Lymphs (auto) 2.04, Nucleated RBC % 0, U Random Total Protein 15.6 H, Urine Creatinine 196.00, Protein/Creatinin Ratio 80 03/04/24 13:20: Creatinine 0.61, Estim Creat Clear Calc 191.29, Est GFR (MDRD) Af Amer 150, Est GFR (MDRD) Non-Af 124, Uric Acid 3.8, AST 15, ALT 27, Syphilis Total Ab Non-reactive, Blood Type A POSITIVE, Antibody Screen NEGATIVE Radiography Diagnostic Testing: Radiology Impression Biophysical Profile Ultrasound 03/04/24 09:35 IMPRESSION: Single living intrauterine with an abnormal 4/8 biophysical profile score. Electronically Signed: Yulisa Bazzi MD at 13:20 EST Reading Location ID and State: [facility] / ID Tel , Service support , ADDENDUM: 03/04/24 1401 IMPRESSION: Single living intrauterine with an abnormal 4/8 biophysical profile score. N.B. : The above Results were Read Back by Yulisa Bazzi MD to Perla Slater OT, and understanding confirmed on 03/04/2024 13:54:30 (ET). Electronically Signed: Yulisa Bazzi MD at 13:20 EST , Physical Exam Const alert and oriented x3 Neck full ROM Resp normal respiratory effort Manual OB Exam: presentation cephalic, dilated 8, effaced 90 and station +1 Extremity normal to inspection Skin no rashes or lesions noted Psych mental status grossly normal NST FHR Rate Baby A Baseline: 120 Variability:: Moderate Decelerations:: Late (x1) and Prolonged (x2 minutes to 110, repositioned. ) FHR Category:: Category II Uterine Activity:: q2-5 minutes Assessment & Plan (1) Encounter for induction of labor: (2) Obesity affecting : QUALIFIERS: Trimester: third trimester Obesity type affecting : unspecified obesity Qualified Code(s): O99.213 - Obesity complicating , third trimester COMMENT: A1C nl -BMI 42 at NOB plan growth us at 32 and 36 weeks, nsts weekly starting at 34 weeks PLAN: Plan -cat 2 tracing, moderate variability. -continue to hold pitocin per protocol -continue frequent repositioning. IV fluid bolus if tracing not improved with position changes
[2024-03-05] MEDS: Oxytocin 15 Units/NS 250ml 15 UNITS/250 ML IV.SOLN 83 UNITS IV (10:47)
[2024-03-05] MEDS: miSOPROStol 200 MCG Tablet 1000 MCG RC (10:58)
--- NOTE | 2024-03-05 11:10 | OB.VAGDELI_ITS ---
Assessment & Plan (1) (spontaneous vaginal delivery): COMMENT: LC IOL- BPP 4/8, Cole (2) Encounter for induction of labor: Maternal Data Information STEPHAN Calculator Estimated Delivery Date Method Current WG Current Estimate 03/11/24 LMP (Certain) 39w 1d Final STEPHAN: 03/11/24 Final STEPHAN Source: LMP Gestational age: 39 Vaginal Delivery Maternal Presentation Maternal Presentation: Medically Indicated Induction Maternal Presentation: at 39 weeks with IOL for BPP 4/8. Type of Induction: Pitocin, Olivares Bulb, Amniotomy and Cytotec Medical Reason for Induction: Other (BPP 4/8 with decreased FM) Vaginal Delivery Information Procedure Performed: Spontaneous Vaginal Delivery Date of Procedure: 03/05/24 Pre-Procedure Diagnosis: see problem list Post-Procedure Diagnosis: Type of anesthesia: Epidural Estimated Blood Loss: 300 Time of Delivery: 10:36 Findings Description of procedure: Patient began pushing and delivered the head in the MARTHA presentation. The head was delivered atraumatically. The anterior and posterior shoulders delivered without complication followed by the rest of the and the infant was placed on the maternal abdomen. spontaneous cry, RT present for delivery for light mec fluid. Delayed cord clamping was employed for approximately 2 minutes. Cord was clamped and cut and gentle traction was applied to the cord and the placenta delivered spontaneously immediately following it was noted to be intact with three-vessel cord. The perineum and vagina were inspected and noted to have 1st degree laceration repaired with 3-0 vicryl. EBL was 300, increased trickle of vaginal bleeding, cytotec and pitocin open wide to achieve excellent hemostasis and firm uterus. Patient and tolerated delivery well. Presentation: Vertex Amniotic Membrane Rupture Type: Artificial Amniotic Fluid Description: Lightly stained meconium Placenta Disposition: [facility] Cord Vessel Description: 3 Vessels Cord Entanglement: None A Gender: Male (1 minute): 8 (5 minute): 9 Delayed Cord Clamping: Yes Post Vaginal Deli Medications given after delivery: IV Pitocin and Other (cytotec) Laceration: 1st degree Complication Complications: No Procedures Urinary/Genital [id number]: [id number] Vaginal Delivery [facility]
--- NOTE | 2024-03-05 11:15 | DCINST_ITS ---
Discharge Instructions Diet Discharge Diet: No restrictions DC O2, CPAP, BIPAP needs Home O2 Discharge instructions: No Dressing / Incision Discharge Activity: May Not Drive and May Shower May resume sexual activity in: 6 weeks Weight Bearing Status: Full weight bearing Dressing / Incision Call your doctor if your incision/area has: Sudden Increased Bleeding, Increased Pain/ Swelling and Foul Smelling Discharge Call your doctor if you observe: Fever of 101 or Higher, Numbness or Tingling, Change in Color, Inability to urinate, Inability to have a bowel movement, Using more than 1 pad per hour, Shortness of breath, Dizziness, Fainting spells, Chest pain, Calf discomfort and Uncontrolled pain Follow Up Care Please Follow Up With: Barbie Trevizo CNM When: 6 weeks , please call office to make an appointment. Congratulations on the of your baby! Test Results: Test results from this visit will be discussed in further detail at your follow- up appointment, if applicable. Discharge Plan Admission Admit Date/Time: 03/04/24 12:07 Attending Provider: Barbie Trevizo Primary Care Provider: Care Physician,Radha Primary Discharge Orders/Prescriptions Prescriptions: No Action PNV-DHA 27 mg iron-1 mg -300 mg capsule 1 cap PO DAILY famotidine [Pepcid] 20 mg tablet 20 mg PO DAILY Qty: 30 6RF Referrals / Follow Up: Care Physician,Radha Primary [Primary Care Provider] -
[2024-03-06] VITALS (9 sets, daily range): BP systolic 117–140; BP diastolic 67–82; PULSE 49–66; RESP 16; TEMP 36.6–37.2; O2SAT 94–98
[2024-03-06] MEDS: Acetaminophen 500 MG Tablet 1000 MG PO ×3 (00:47→23:06)
--- NOTE | 2024-03-06 09:41 | PCM.PN.CNM ---
Subjective Subjective Patient doing well without complaints. Tolerating PO. Ambulating and voiding without difficulty. Feeding well. Denies chest pain, shortness of breath, calf pain/swelling, fevers, chills, lightheadedness. Objective Data Objective Data Vital Signs: Vital Signs Temp Pulse Resp BP Pulse Ox O2 Del Method 97.8 F 56 L 16 139/69 H 98 Room Air 03/06/24 08:42 03/06/24 08:42 03/06/24 08:42 03/06/24 08:42 03/06/24 08:42 03/06/24 08:42 Oxygen Delivery Method Room Air Weight: 278 lb 6 oz Body Mass Index (BMI) 43.6 Intake & Output: Intake and Output for Last 24 Hours 03/04/24 03/05/24 03/06/24 23:59 23:59 23:59 Intake Total 417.5 / 417.5 2831.67 / 2831.67 Output Total 2600 / 2600 Balance 417.5 / 417.5 231.67 / 231.67 Lab / Micro Data 03/04/24 12:45 03/04/24 13:20 Physical Exam Const alert and oriented x3 Neck full ROM Lymph Lymphatic: no lymphadenopathy noted Chest inspection of chest normal Resp normal respiratory effort GI normal to inspection, nondistended, normoactive bowel sounds Uterus Palpation: uterus fundus firm (below u) Extremity normal to inspection and full ROM Extremity Narrative: mild pe Skin no rashes or lesions noted Psych mental status grossly normal Assessment & Plan (1) (spontaneous vaginal delivery): COMMENT: IOL- BPP 06/15, NEELAM Galvan PLAN: s/p PPD # 1 1. routine post delivery care 2. breast feeding- support given, to see today to assist with latch 3. rh positive 4. rubella immune
[2024-03-06] MEDS: Senna/Docusate Sodium 1 Tablet PO (10:21)
--- NOTE | 2024-03-06 13:45 | CASEMGMT ---
Social Work Assessment Labor and Delivery Unit Patient Address: [address] [place] [id number] Phone number: [phone] Date of Referral: 03/06/24 Time of Referral: 01:15 Referred By: Barbie Trevizo Date of Intervention: 03/06/2024 Time of Intervention: 13:47 Reason for Referral: Grief/loss/bereavement History obtained from: Medical records, mother of baby (MOB) and father of baby (FOB).? Household composition: MOB (Lacy, age 27), FOB (Leonardo, age 30), and their son Cole, born on 03/05/2024. Patient's parent/guardian status: MOB and FOB have been together for 6 years and for 1 year. ??Both are actively involved and will be providing care for baby. MOB denied any concerns with domestic violence and described a positive and supportive relationship with the FOB. Medical History: : 2, Para now 1. 1 SAB on 05/09/2022. MOB received PNC through [facility] beginning at 7 weeks, 0 days and visits appeared to be routine. Apgars: 8 and 9. Weight: 3.33 kg. Community Engagement Leader: Still in the middle of [facility] but will be in [place]. Educational Status: MOB and FOB denied any issues or concerns with reading or writing. Both MOB and FOB are high school graduates. Financial Status: MOB and FOB reported their income is sufficient to meet the needs of their family at this time. MOB is currently a [id number] mom and the FOB is currently employed time study engineer as a car wash lawn sprinkler installer. Supplies: MOB and FOB reported they have all the supplies they need for baby at this time including but not limited to: Car Seat, bassinet, pack-n-play, crib, diapers, two breast pumps, bottles and clothing. Childcare/Caregiver(s):? MOB reported she will be the primary caregiver of the as a [id number] mom and the FOB will assist during times that he is not working. Transportation:? MOB and FOB reported they are both licensed drivers and have a reliable vehicle to take baby to and from all medical appointments. No transportation issues identified. Programs/Agencies Involved: ALISHA is currently receiving Medicaid through [employer]. No other agencies are involved at this time. Children Services/Legal Issues:? Denied. Behavioral Health Issues: ??Mental Health History: MOB denied any history of mental health.? FODavid has Bipolar. FOB is not on any medication at this time and reported his symptoms are managed. ?Substance Use History: Denied.?Family History: FOB reported there is a history of Bipolar on his mother?s side of the family. MOB reported her maternal grandmother?s brothers are alcoholics. Drug Screens: None obtained at the time of this admission. ? Family/Social Stressors: ?FOB?s mother was recently diagnosed with cancer and within a matter of a few weeks on 02/20/24.? MOB and FOB are in the process of moving out of where they are currently living (with MOB?s mother, MOB?s brother Nikolas and Nikolas?s Maribeth) into the house of ?s now paternal grandmother (PGM). [place]?s PGM had dogs and cats that were left behind and the FOB is in the process of trying to get the cats adopted out and the 2 dogs are medically fragile, require daily medication and aren?t able to be left alone and are said to be at the end stages of their lives. For this reason, the FOB missed the delivery of and has not been able to spend a lot of time with and MOB during the time they have been at the hospital.? When the FOB brought the MOB to the hospital, he had one of the dogs in the car and had to leave. The BPP was 4/8. Support Systems: MOB identified her biggest supports as the FOB, ?s maternal grandmother (MGM) and ?s paternal grandfather (PGF). ? Depression/Shaken Baby/Safe Sleeping: personal service workers provided verbal and written education on PPD, Safe Sleeping and Shaken Baby.? Parents verbalized an understanding. ??? ASSESSMENT:? MOB and FOB provided consent to social work visit. Upon arrival, MOB was sitting upright in the hospital bed doing skin to skin with and the FOB was in the room asleep in the couch and slept for about half of the assessment. personal service workers observed positive interaction between the MOB and FOB although it did seem a bit ?distant?. The FOB appeared to have a hard time staying awake and appeared to be exhausted. personal service workers also observed positive interaction between the MOB and the . MOB was cuddling , rubbing ?s back and was very attentive to ?s needs.? MOB was observed to be very gentle with . At the end of the assessment, executive secretary social welfare asked to speak with the MOB alone which both the MOB and FOB were agreeable to.? MOB denied any previous or current domestic violence and reported feeling safe at home. MOB denied any unmanaged mental health concerns or drug or alcohol abuse with herself or the FOB.? Upon discharge, MOB reported she is going to go to ?s MGM?s house so she doesn?t have to go up and down the stairs of the new house and MOB will also have more family there to help if needed.? FOB will go back and forth between the MGM?s home and new home as needed.? MOB reported the FOB has already been commuting back and forth prior to PGM dying and would sometimes be away for a few weeks at a time and they always make it work.? At the end of the assessment, ?s MGM entered the room for a visit. Safe Plan of Care for infant related to substance use: N/A; not needed. ? PLAN:? Baby to be discharged home when ready.? personal service workers also provided written information on depression, depression resources and Help Me Grow as additional resources offered by executive secretary social welfare which MOB and FOB accepted. No other services requested or indicated. Yue Brumfield, FORMING OPERATOR, BUSINESS PROPOSAL REP
[2024-03-06] MEDS: Naproxen 500 MG Tablet PO (16:24)
[2024-03-07 02:05] VITALS: BP 121/58; PULSE 57; RESP 16; TEMP 36.6
[2024-03-07 02:06] VITALS: BP 121/58; PULSE 57
[2024-03-07 08:30] VITALS: BP 129/65; PULSE 57; RESP 16; TEMP 36.6; O2SAT 99
[2024-03-07 08:50] VITALS: BP 129/65; PULSE 57
--- NOTE | 2024-03-07 09:28 | PCM.DC.SUM ---
Providers Date of Admission: 03/04/24 Primary Care Physician: Radha Primary Care Phys Reason For Visit: VAGINAL DELIVERY Diagnosis Discharge Diagnosis (1) (spontaneous vaginal delivery): Status: Acute Code(s): O80 - Encounter for full-term uncomplicated delivery Plan: s/p PPD # 1 1. routine post delivery care 2. breast feeding- support given, to see today to assist with latch 3. rh positive 4. rubella immune Medications at Discharge Home Medications multivitamin no.47-iron fum 27 mg-folate no.1 1 mg-dha 300 mg capsule (PNV-DHA) 1 cap PO DAILY 07/08/23 famotidine 20 mg tablet (Pepcid) 20 mg PO DAILY #30 tabs 12/25/23 Hospital Course Operations None Procedures None Summary of Care Provided Minutes Spent on Discharge: 15 Hospital Course: presented for IOL for 06/15 BPP resulted in with normal pp course. Physical Exam Const alert and oriented x3 Neck full ROM Lymph Lymphatic: no lymphadenopathy noted Chest inspection of chest normal Resp normal respiratory effort GI normal to inspection, nondistended, normoactive bowel sounds Uterus Palpation: uterus fundus firm (below u) Extremity normal to inspection and full ROM Extremity Narrative: mild pe Skin no rashes or lesions noted Psych mental status grossly normal Weight / BMI Weight Weight: 278 lb 6 oz Body Mass Index (BMI) 43.6 ABG / Lab / Microbiology Data 03/04/24 12:45 03/04/24 13:20 D/C Instructions Discharge Diet: No restrictions May resume sexual activity in: 6 weeks Weight Bearing Status: Full weight bearing Call your doctor if your incision/area has: Sudden Increased Bleeding, Increased Pain/ Swelling and Foul Smelling Discharge Call your doctor if you observe: Fever of 101 or Higher, Numbness or Tingling, Change in Color, Inability to urinate, Inability to have a bowel movement, Using more than 1 pad per hour, Shortness of breath, Dizziness, Fainting spells, Chest pain, Calf discomfort and Uncontrolled pain DC O2, CPAP, BIPAP Needs Home O2 Discharge instructions: No Please Follow Up With: Barbie Trevizo CNM When: 6 weeks , please call office to make an appointment. Congratulations on the of your baby! Meaningful Use Info Meaningful Use Meaningful Use Diagnoses (Choose all that apply): None applicable Ischemic Stroke Statin Dosing Therapy Reference: STATIN DOSE THERAPY REFERENCE: * Patients > 75 years receive moderate or high dose statin therapy. * Patients 75 years or YOUNGER should receive HIGH intensity statin dose unless contraindicated. You will be required to document reason for non-treatment if statin daily dose does not meet guidelines. HIGH DOSE STATIN THERAPY DAILY Atorvastatin > than or = to 40 mg Rosuvastatin > than or = to 20 mg Amlodipine + Atorvastatin > than or = to 2.5/40 mg Ezetimibe + Simvastatin 10/80 mg Simvastatin 80mg Discharge Plan Admission Admit Date/Time: 03/04/24 12:07 Attending Provider: Barbie Trevizo Primary Care Provider: Care Physician,Radha Primary Discharge Orders/Prescriptions Prescriptions: No Action PNV-DHA 27 mg iron-1 mg -300 mg capsule 1 cap PO DAILY famotidine [Pepcid] 20 mg tablet 20 mg PO DAILY Qty: 30 6RF Referrals / Follow Up: Care Physician,No Primary [Primary Care Provider] - Disposition Disposition (needs filled in before D/C Order can be placed): Home, Self Care
[2024-03-07] MEDS: Senna/Docusate Sodium 1 Tablet PO (11:53)
[2024-03-07 13:27] VITALS: BP 143/79; PULSE 65
[2024-03-07 13:30] VITALS: BP 143/79; PULSE 65; RESP 14; TEMP 36.6
== END 2024-03-07 13:45 | disposition home or self-care (01) | DRG 560 ==
LOC: WPOUT 12:12 → WP 12:12
PROVIDERS: Advanced Practice Midwife; Admitting Provider Registered Nurse; Referring Provider Registered Nurse; Visit Provider Registered Nurse
DX: O36.8130 Decreased fetal movements, third trimester, not applicable or unspecified (principal); Z37.0 Single live birth; O76 Abnormality in fetal heart rate and rhythm complicating labor and delivery; O99.214 Obesity complicating childbirth; O77.0 Labor and delivery complicated by meconium in amniotic fluid; O70.0 First degree perineal laceration during delivery; Z3A.39 39 weeks gestation of pregnancy
CPT/HCPCS: 59025; 59050; 76819; 82565; 82570; 84156; 84450; 84460; 84550; 85025; 85027; 86780; 86850; 86900; 86901; 99221; G0378; J2405

== ENCOUNTER → 2024-06-07 | Outpatient (CLI) | payer MEDICAID, SELFPAY ==
[2024-06-07 17:36] LABS: hCG Titer Quant., Serum < 1 mIU/mL (<9 non-preg)
== END | disposition home or self-care (01) ==
PROVIDERS: Referring Provider Advanced Practice Midwife; Visit Provider Advanced Practice Midwife
DX: N92.6 Irregular menstruation, unspecified (principal)
CPT/HCPCS: 36415; 84702

== ENCOUNTER → 2024-09-28 | Outpatient (CLI) | payer MEDICAID, SELFPAY ==
[2024-09-28 13:28] LABS: hCG Titer Quant., Serum 185 mIU/mL (<9 non-preg)
== END | disposition home or self-care (01) ==
PROVIDERS: Obstetrics & Gynecology; Visit Provider Obstetrics & Gynecology
DX: N91.1 Secondary amenorrhea (principal)
CPT/HCPCS: 36415; 84702

== ENCOUNTER → 2024-09-30 | Outpatient (CLI) | payer MEDICAID, SELFPAY ==
[2024-09-30 13:15] LABS: hCG Titer Quant., Serum 460 mIU/mL (<9 non-preg)
== END | disposition home or self-care (01) ==
PROVIDERS: Obstetrics & Gynecology; Referring Provider Advanced Practice Midwife; Visit Provider Advanced Practice Midwife
DX: Z34.90 Encounter for supervision of normal pregnancy, unspecified, unspecified trimester (principal); N91.2 Amenorrhea, unspecified
CPT/HCPCS: 36415; 84702

== ENCOUNTER → 2024-10-08 | Outpatient (CLI) | payer MEDICAID, SELFPAY ==
--- NOTE | 2024-10-08 16:13 | US_ITS ---
PROCEDURE: TRANSVAGINAL W/PREG US 10/08/2024 REASON FOR EXAM: DATING TECHNIQUE: TRANSVAGINAL W/PREG US COMPARISON: Reviewed FINDINGS Single live intrauterine gestation is noted yolk sac measuring 2.6 mm, crown- rump length 2.1 mm corresponding to a gestational age of 6 weeks and 0 days. Average heart rate 78 beats per minute. Uterus is otherwise unremarkable measuring up to 8.9 cm. Cervix is closed. Moderate fluid in the cul-de-sac is seen. Subchorionic hemorrhage suggested measuring up to 1.2 cm. Bilateral ovaries are normal with preserved symmetric vascular flow. US/Transvaginal w/Preg US IMPRESSION: Single live intrauterine gestation, as described above. Reading [facility]
== END | disposition home or self-care (01) ==
LOC: US 16:13
PROVIDERS: Referring Provider Obstetrics & Gynecology; Visit Provider Obstetrics & Gynecology
DX: Z78.9 Other specified health status (principal)
CPT/HCPCS: 76817

== ENCOUNTER → 2024-10-19 | Outpatient (CLI) | payer MEDICAID, SELFPAY ==
[2024-10-19 16:44] LABS: Hematocrit 37.7 % (37-47); Hemoglobin 12.2 g/dL (12.0-15.0); Immature Granulocytes Count 0.020 X10^3/uL (0.0-0.0); Mean Corp Hgb Conc 32.4 g/dL (32-36); Mean Corpuscular Volume 85.1 fL (81-99); Mean Platelet Vol. 10.0 fl (6.2-12.0); NRBC Flagged by Analyzer 0 % (0-5); Platelet Count 372 K/mm3 (150-450); RBC Distribution Width CV 13.4 % (11.6-14.6); RBC Distribution Width SD 41.9 fl (35.1-43.9); Red Blood Count 4.43 M/mm3 (4.2-5.4); White Blood Count 10.7 K/mm3 (4.4-11.0)
[2024-10-19 18:26] LABS: HIV Nonreactive (Nonreactive); Hepatitis B Surface Antigen Nonreactive (Nonreactive); Hepatitis C Antibody Nonreactive (Nonreactive); Syphilis Antibodies Nonreactive (Nonreactive)
[2024-10-22 05:07] LABS: Chlamydia By Nucleic Acid AMP Negative (Negative); Gonococcus By Nucleic Acid AMP Negative (Negative)
== END | disposition home or self-care (01) ==
PROVIDERS: Visit Provider Advanced Practice Midwife
DX: O09.90 Supervision of high risk pregnancy, unspecified, unspecified trimester (principal); O99.210 Obesity complicating pregnancy, unspecified trimester; Z3A.00 Weeks of gestation of pregnancy not specified
CPT/HCPCS: 36415; 83036; 85025; 86703; 86762; 86780; 86803; 86850; 86900; 86901; 87086; 87340; 87491; 87591

== ENCOUNTER → 2024-12-29 | Outpatient (CLI) | payer MEDICAID, SELFPAY | END | disposition home or self-care (01) | LOC: LABSPEC 16:02 | PROVIDERS: Visit Provider Nurse Practitioner Women's Health | DX: R30.0 Dysuria (principal) | CPT/HCPCS: 87086; 87088 ==

== ENCOUNTER → 2025-01-12 | Outpatient (CLI) | payer MEDICAID, SELFPAY | END | disposition home or self-care (01) | PROVIDERS: Visit Provider Obstetrics & Gynecology | DX: Z36.9 Encounter for antenatal screening, unspecified (principal) | CPT/HCPCS: 36415 ==

== ENCOUNTER 2025-01-13 23:26 | Emergency (ER) | payer MEDICAID, SELFPAY ==
[2025-01-13 23:28] VITALS: BP 144/92; PULSE 60; RESP 18; TEMP 36.5; O2SAT 100; BMI 41.8
[2025-01-13 23:56] LABS: Mucous, Urine 0 SEEN /hpf (<or=2+)
[2025-01-14] LABS: Color, Urine Yellow (Yellow); Glucose, Dipstick Normal (Normal); Ketone-Dipstick Negative (Negative); Leukocyte Esterase-Dipstick Negative /ul (Negative); Nitrite-Dipstick Negative (Negative); Occult Blood-Urine Negative /ul (Negative); Protein-Dipstick Negative (Negative); Specific Gravity, Urine 1.010 (1.002-1.030); Urine Bilirubin Dipstick Negative (Negative)
--- OUTSIDE RECORDS SUMMARY | 2025-01-14 00:03 | XMS RPT_ITS | CCD ---
Author Organization [facility] Informat ion Partnership [employer] [facility] Care Team Providers Care Chief Console Operator Name Role Phone Unavailable Primary Care Provider Unavailabl e PHYSICIAN, NONE Primary Care Physician Unavailab INDIRA Voss (PA-C) Attending [facility] able [facility], [facility] Primary Care Provider Unav ail[facility], [facility] Primary Care Unavailable Hilary ALFRED Attending Unavailable CANDI CONTRERAS DO Attending Unavailable PHYSICIAN, NONE Primary Care Unavailable PHYSICIAN, NONE Primary Care Unavailable CARA FLOYD Attending Unav ailable Care Physician, No Primary Primary Care Provider Unavailable Care Physician, No Primary Referring Provider Un available Jerome De Anda CNM Attending Provider [phone] Jerome De Anda CNM Referring Provider [phone]) Jerome De Anda CNM Other Provider [phone]) Dr. Yue Patel DO Attending Provider Barbie Trevioz CNM Attending Provider [phone] Barbie Trevizo CNM Referring Provider [phone] Barbie Trevizo CNM Other Provider [phone] Maddie TORRE, Dr. Boone Attending Provider Barbie Trevizo CNM Admit Provider [phone] Jerome De Anda CNM Admit Provider [phone] Dunia Saba Attending Provider Care Physician, No Primary Primary Care Provider Unavailable Care Physician, No Primary Referring Provider Un available Jerome De Anda CNM Attending Provider [phone]) Jerome De Anda CNM Referring Provider 1(330) Dr. Yue Patel DO Attending Provider Care Physician, No Primary Primary Care Provider Unavailable Bryon CNM, Jerome Attending Provider [phone]) Bryon CNM, Jerome Referring Provider 1(330) Maddie TORRE, Dr. Boone Attending Provider Dr. Mely Castillo MD Referring Provider [phone] Care Physician, No Primary Referring Provider Un available Care Physician, No Primary Primary Care Physicia n Unavailable Neida Niño DO, Dr. Turner Attending Physician Bryon MONTOYA, Jerome Attending Physician 1(330) Maddie TORRE, Dr. Boone Attending Physician Leonor HINGING MACHINE OPERATOR-C, Ceci Attending Physician [phone] MELY CASTILLO Referring Unavailabl e FER CHAVEZ Attending Unavailable NO PRIMARY CARE, MD Primary Care Unavailable GENIA INTERIANO Attending Unavailable MELY CASTILLO Referring Unavailabl e NO PRIMARY CARE, Primary Care Unavailable DANAE REID Attending Unavailable NO PRIMARY CARE, MD Primary Care Unavailable JEROME DE ANDA S Referring Unavailable Barbie Trevizo Admitting Unavailable Barbie Trevizo Referring Unavailable Barbie Trevizo Attending Unavailable Care Physician, No Primary Primary Care Unava ilable Mely Castillo Referring Unavailable Mely Castillo Attending Unavailable Care Physician, No Primary Primary Care Unava ilable Barbie Trevizo Referring Unavailable Barbie Trevizo Attending Unavailable Care Physician, No Primary Primary Care Unava ilable Jerome De Anda Attending Unavailable Jerome De Anda Referring Unavailable Care Physician, No Primary Primary Care Unava ilable Mely Castillo Attending Unavailable Care Physician, No Primary Primary Care Unava ilable Jerome De Anda Attending Unavailable Jerome De Anda Referring Unavailable Care Physician, No Primary Primary Care Unava ilable Jerome De Anda Attending Unavailable Jerome De Anda Referring Unavailable Care Physician, No Primary Primary Care Unava ilable Jerome De Anda Consulting Unavailable Jerome De Anda Admitting Unavailable Care Physician, No Primary Primary Care Unava ilable Jerome De Anda Attending Unavailable Jerome De Anda Referring Unavailable Mely Castillo Attending Unavailable Care Physician, No Primary Primary Care Unava ilable Mely Castillo Referring Unavailable Jerome De Anda Attending Unavailable Jerome De Anda Consulting Unavailable Bryon, Jerome Referring Unavailable Care Physician, No Primary Primary Care Unava ilable Barbie Trevizo Consulting Unavailable Santhosh, Barbie Admitting Unavailable Trevizo, Barbie Referring Unavailable Santhosh, Barbie Attending Unavailable Leonor HINGING MACHINE OPERATOR, Ceci Attending Unavailable Care Physician, No Primary Primary Care Unava ilable Jerome De Anda Attending Unavailable Bryon, Jerome Referring Unavailable Care Physician, No Primary Primary Care Unava ilable Jerome De Anda Referring Unavailable Care Physician, No Primary Primary Care Unava ilable Jerome De Anda Attending Unavailable Yue Patel Attending Unavailabl e Care Physician, No Primary Primary Care Unava ilable Jerome De Anda Referring Unavailable Care Physician, No Primary Primary Care Unava ilable Jerome De Anda Attending Unavailable Barbie Trevizo Consulting Unavailable Trevizo, Barbie Referring Unavailable Trevizo, Barbie Attending Unavailable Care Physician, No Primary Primary Care Unava ilable Mely Castillo Attending Unavailable Care Physician, No Primary Primary Care Unava ilable Care Physician, No Primary Referring Unava ilable Jerome De Anda Attending Unavailable Care Physician, No Primary Primary Care Unava ilable Care Physician, No Primary Referring Unava ilable Leonor HINGING MACHINE OPERATOR, Ceci Attending Unavailable Care Physician, No Primary Primary Care Unava ilable Care Physician, No Primary Referring Unava ilable Jerome De Anda Referring Unavailable Jerome De Anda Attending Unavailable Care Physician, No Primary Primary Care Unava ilable Jerome De Anda Attending Unavailable Jerome De Anda Referring Unavailable Care Physician, No Primary Primary Care Unava ilable Care Physician, No Primary Primary Care Unava ilable Jerome De Anda Attending Unavailable Mely Castillo Attending Unavailable Care Physician, No Primary Primary Care Unava ilable Care Physician, No Primary Referring Unava ilable Yue Patel Attending Unavailabl e Care Physician, No Primary Primary Care Unava ilable Care Physician, No Primary Referring Unava ilable Dunia Walters NP Attending Unavailable Care Physician, No Primary Referring Unava ilable Care Physician, No Primary Primary Care Unava ilable Care Physician, No Primary Referring Unava ilable Care Physician, No Primary Primary Care Unava ilable Jerome De Anda Attending Unavailable Care Physician, No Primary Referring Unava ilable Care Physician, No Primary Primary Care Unava ilJerome Ch Attending Unavailable Leonor HINGING MACHINE OPERATOR, Ceci Attending Unavailable Care Physician, No Primary Primary Care Unava ilable Care Physician, No Primary Referring Unava ilable Care Physician, No Primary Primary Care Unava ilable Leonor HINGING MACHINE OPERATOR, Ceci Attending Unavailable Care Physician, No Primary Referring Unava ilable Jerome De Anda Attending Unavailable Care Physician, No Primary Primary Care Unava ilable Care Physician, No Primary Referring Unava ilable Mely Castillo Attending Unavailable Care Physician, No Primary Referring Unava ilable Care Physician, No Primary Primary Care Unava ilable Yue Patel Attending Unavailabl e Care Physician, No Primary Primary Care Unava ilable Care Physician, No Primary Referring Unava ilable Care Physician, No Primary Primary Care Unava ilable Care Physician, No Primary Referring Unava ilable Jerome De Anda Attending Unavailable Care Physician, No Primary Primary Care Unava ilable Care Physician, No Primary Referring Unava ilable Jerome De Anda Attending Unavailable Bryon, Jerome Consulting Unavailable Bryon, Jerome Attending Unavailable Care Physician, No Primary Primary Care Unava ilable Jerome De Anda Referring Unavailable Care Physician, No Primary Referring Unava ilable Care Physician, No Primary Primary Care Unava ilable Jerome De Anda Attending Unavailable MarcMely ramey Referring Unavailable MarcanthMely prince Attending Unavailable Marcanthony, Mely Consulting Unavailable Care Physician, No Primary Primary Care Unava ilable Jerome De Anda Referring Unavailable Bryon, Jerome Attending Unavailable Jerome De Anda Consulting Unavailable Care Physician, No Primary Primary Care Unava ilable Allergies Allergy Classification Reported Allergen(s) Allergy Type Date of Onset Reaction(s) Facility (11 sources) mike allergenic extract; Translations: [MIKE] Drug Allergy 3 Anaphylaxis [facility] (6 sources) Sulfonamides (Antibiotic); Translations: [sulfa drugs] Drug Allergy 1 Diarrhea [facility] (2 sources) Adhesive Tape-Silicones; Translations: [ADHESIVE TAPE-SILICONES] Drug Allergy 3 Rash [facility] (2 sources) Sulfonamide; Translations: [sulfa drugs] Drug allergy [facility] (10 sources) Adhesive agent; Translations: [adhesive] Allergy to substance 4 [facility] Comment on above: Only if on for exten ded amt of time. (9 sources) Sulfonamides (Antibiotic) Propensity to adverse reactions 4 [facility] (1 source) mike allergenic extract Drug Allergy 5 [facility] (1 source) Sulfonamides (Antibiotic) Drug allergy (disorder) 5 [facility] Medications Current Medications Medication Drug Class(es) Dates Sig (Normalized) Sig (Original) cephalexin 500 mg oral tablet (1 source) Cephalosporin Antibacterial Start: 12-29-2024 take 1 tablet by mouth twice daily Start: 12-29-2024 take 1 tablet by mouth twice d aily Mv-Mins 77-Qgik-Elfxq No.1-D francis (Pnv-Waldo) 28-1-300 mg capsule (5 sources) Start: 10-07-2024 Start: 10-07-2024 Mv-Mins 71-Iro n-Folic No.1-Dha (Pnv-Waldo) 28-1-300 mg capsule Active NMA PO October 07, 2024 12:00am Multivitamins with Vitamin B Complex, Vitamin C, Minerals and L-Methylfolate oral capsule (1 source) Start: 11-22-2023 take 1 capsule by mouth once daily Multivitamins with Vitamin B Complex, Vitamin C, Minerals and L-Methylfolate oral capsule Dose = 1 cap(s), Oral, Daily, 0 Refill(s) Start Date: 11/22/23 Status: Ordered Completed/Discontinued Medications Medication Drug Class(es) Dates Sig (Normalized) Sig (Original) citalopram 20 mg oral tablet (16 sources) Serotonin Reuptake Inhibitor Start: 05-12-2024 End: 10-07-2024 take 1 tablet by mouth once daily Citalopram 20 mg tablet Discontinued 20 mg PO DAILY June 07, 2024 3:14pm October 07, 2024 8:30am depression depression famotidine 20 mg oral tablet (8 sources) Histamine-2 Receptor Antagonist Start: 12-25-2023 End: 06-07-2024 take 1 tablet by mouth once daily Famotidine (Pepcid) 20 mg tablet Discontinued 20 mg PO DAILY 30 December 25, 2023 12:00am June 07, 2024 3:07pm FLUoxetine 20 mg oral capsule (8 sources) Serotonin Reuptake Inhibitor Start: 04-28-2024 End: 05-12-2024 take 1 capsule by mouth once daily Fluoxetine (Prozac) 20 mg capsule Discontinued 20 mg PO DAILY 30 2 April 28, 2024 1:00am May 12, 2024 5:12pm depression depression Iron (9 sources) Start: 07-08-2023 End: 07-08-2023 Pnv No.513-Yocr-Jzztql No.10 (Pnv Tabs 20-1) 20 mg iron- 1 mg tablet Discontinued {tbl} PO July 08, 2023 12:00am July 08, 2023 8:25am Start: 07-08-2023 End: 07-08-2023 Pnv No.480-Otua-Asgczd No.10 (Pnv Tabs 20-1) 20 mg iron- 1 mg tablet Discontinued TABLET PO July 08, 2023 12:00am July 08, 2023 8:25am Multivit 19-Ervg-Lfdgff 1-Dh a (Pnv-Dha) 27 mg iron-1 mg -300 mg capsule (9 sources) Start: 07-08-2023 End: 06-07-2024 Multivit 50-Sxzq-Rnswfe 1-Dh a (Pnv-Dha) 27 mg iron-1 mg -300 mg capsule Discontinued 1 NMA PO DAILY July 08, 2023 12:00am June 07, 2024 3:07pm Start: 07-08-2023 End: 06-07-2024 Multivit 28-Bdjb-Mbrcnj 1-Dh a (Pnv-Dha) 27 mg iron-1 mg -300 mg capsule Discontinued 1 NMA PO DAILY July 08, 2023 12:00am June 07, 2024 3:07pm Start: 07-08-2023 Multivit 47-Ir on-Folate 1-Dha (Pnv-Dha) 27 mg iron-1 mg -300 mg capsule Active CAP PO July 08, 2023 12:00am vit no.124/iron/folic ( VITAMIN ORAL) (1 source) vit no.124/iron/folic ( VITAMIN ORAL) Take by mouth once daily. 0 Active Comment on above: Take by mouth once d aily. tetracaine hydrochloride 5 mg/ml ophthalmic solution (2 sources) [facility] Start: 023 End: 023 tetracaine (Altacaine) 0.5 % ophthalmic solution 1-2 drop Zuranolone (16 sources) Start: 025 End: take 1 capsule by mouth once daily Zuranolone (Zurzuvae) 25 mg capsule Discontinued 50 mg PO daily April 23, 2024 3:36pm May 06, 2024 1:00am May 07, 2024 1:12am depression depression administer with a high fat meal Start: 04-23-2024 End: 05-07-2024 take 1 capsule by mouth once daily Zuranolone (Zurzuvae) 25 mg capsule Discontinued 50 mg PO daily April 23, 2024 3:36pm May 06, 2024 1:00am May 07, 2024 1:12am administer with a high fat meal Start: 04-16-2024 End: 04-23-2024 take 1 capsule by mouth once daily Zuranolone (Zurzuvae) 25 mg capsule Discontinued 50 mg PO daily April 16, 2024 1:00am April 29, 2024 1:00am April 23, 2024 3:36pm depression depression administer with a high fat meal Start: 04-16-2024 End: 04-23-2024 take 1 capsule by mouth once daily Zuranolone (Zurzuvae) 25 mg capsule Discontinued 50 mg PO daily April 16, 2024 1:00am April 29, 2024 1:00am April 23, 2024 3:36pm administer with a high fat meal Problems Active Problems Problem Classification Problem Date Documented Da te Episodic/Chronic Abdominal pain (2 sources) Pain in pelvis; Translations: [Pelvic and perineal pain] Onset: 05-08-2022 Episodic Genitourinary symptoms and ill-defined conditions (1 source) Dysuria; Translations: [Dysuria] Onset: 12-31-2024 Episodic Hemorrhage during ; abruptio placenta; placenta previa (4 sources) Antepartum hemorrhage; Translations: [Antepartum hemorrhage, unspecified, unspecified trimester] Onset: 07-01-2023 Episodic Menstrual disorders (12 sources) Amenorrhea; Translations: [Amenorrhea, unspecified] Onset: 06-10-2024 06-30-2023 Chronic Comment on above: HCG X 2 Miscellaneous mental health disorders (20 sources) depression; Translations: [ depression] Onset: 01-12-2025 04-16-2024 Episodic Comment on above: Pt stopped taking ci talopram 3 mos ago- stable Other complications of (20 sources) Maternal obesity complicating , childbirth and the puerperium, antepartum; Translations: [Obesity complicating , unspecified trimester] 04-16-2024 Chronic Comment on above: A1C nl -BMI 42 at NO B plan growth us at 32 and 36 weeks, nsts weekly starting at 34 weeks HgbA1c Other complications of (1 source) Obesity complicating , second trimester; Translations: [Obesity complicating , second trimester] Onset: 01-12-2025 Chronic Other complications of (1 source) Obesity complicating , unspecified trimester; Translations: [Obesity complicating , unspecified trimester] Onset: 12-17-2024 Chronic Other complications of (2 sources) Obesity complicating , third trimester; Translations: [Obesity complicating , third trimester] Onset: 03-23-2024 Chronic Other complications of (9 sources) H/O: miscarriage; Translations: [Supervision of with other poor reproductive or obstetric history, unspecified trimester] 07-08-2023 Episodic Comment on above: chemical Other complications of (20 sources) High risk ; Translations: [Supervision of high risk , unspecified, unspecified trimester] 07-08-2023 Episodic Comment on above: PRR, , STEPHAN 1/2/2 5, Leonardo , STEPHAN 05/08/25, PC Cole, Leonardo , STEPHAN 06/03/25, P C Cole, Leonardo [id number], STEPHAN 06/03/25 , PC Cole, Leonardo Other complications of (14 sources) Abnormal findings on screening of mother; Translations: [Other abnormal findings on screening of mother] 03-04-2024 Episodic Comment on above: BPP 8/, d/c home Other complications of (2 sources) Urinary tract infection in ; Translations: [Unspecified infection of urinary tract in , unspecified trimester] 12-29-2024 Episodic Comment on above: +UA, keflex. culture pending Other complications of (1 source) Unspecified infection of urinary tract in , second trimester; Translations: [Unspecified infection of urinary tract in , second trimester] Onset: 01-12-2025 Episodic Other complications of (1 source) Supervision of high risk , unspecified, second trimester; Translations: [Supervision of high risk , unspecified, second trimester] Onset: 01-12-2025 Episodic Other complications of (1 source) Supervision of high risk , unspecified, unspecified trimester; Translations: [Supervision of high risk , unspecified, unspecified trimester] Onset: 12-17-2024 Episodic Other female genital disorders (1 source) [...] eye, initial encounter] Onset: 10-29-2022 Episodic Other nutritional; endocrine; and metabolic disorders (1 source) Body mass index 30+ - obesity 11-22-2023 Chronic Other conditions (8 sources) tachycardia; Translations: [Abnormality in heart rate or rhythm, unspecified as to time of onset] 02-02-2024 Episodic Comment on above: had bpp in triage Residual codes; unclassified (13 sources) Immunization status unknown; Translations: [Other specified health status] 10-07-2024 Episodic Comment on above: states has not had v irus Residual codes; unclassified (1 source) 19 weeks gestation of ; Translations: [19 weeks gestation of ] Onset: 01-12-2025 Episodic Residual codes; unclassified (1 source) Other specified health status; Translations: [Other specified health status] Onset: 12-17-2024 Episodic Residual codes; unclassified (1 source) 16 weeks gestation of ; Translations: [16 weeks gestation of ] Onset: 12-17-2024 Episodic Residual codes; unclassified (1 source) 11 weeks gestation of ; Translations: [11 weeks gestation of ] Onset: 10-19-2024 Episodic Spontaneous (1 source) Complete inevitable miscarriage without complication; Translations: [Complete or unspecified spontaneous without complication] Onset: 05-08-2022 Episodic Past or Other Problems Problem Classification Problem Date Documented Date Episodic/Chronic Nausea and vomiting (1 source) Nausea with vomiting, unspecified; Translations: [Nausea with vomiting, unspecified] Onset: 03-01-2024 Episodic Other complications of (17 sources) Vomiting of , unspecified; Translations: [Nausea and vomiting during ] Onset: 03-04-2024 03-12-2024 Episodic Other complications of (2 sources) Other abnormal findings on screening of mother; Translations: [Other abnormal findings on screening of mother] Onset: 03-04-2024 Episodic Other complications of (2 sources) Supervision of high risk , unspecified, third trimester; Translations: [Supervision of high risk , unspecified, third trimester] Onset: 03-04-2024 Episodic Other complications of (1 source) Maternal care for abnormalities of the heart rate or rhythm, third trimester, not applicable or unspecified; Translations: [Maternal care for abnormalities of the heart rate or rhythm, third trimester, not applicable or unspecified] Onset: 03-23-2024 Episodic Other complications of (1 source) Late vomiting of ; Translations: [Late vomiting of ] Onset: 03-16-2024 Episodic Other and delivery including normal (20 sources) ; Translations: [Encounter for supervision of normal , unspecified, unspecified trimester] Onset: 05-08-2022 Episodic Comment on above: System added from do cumentation. Status documented as Yes on Admission LC IOL- BPP 06/15, Cole GBS neg, discussed g enetic & carrier testing, declined declined NIPT & Ramírez ier testing Other screening for suspected conditions (not mental disorders or infectious disease) (15 sources) Finding related to ; Translations: [Encounter for other specified screening] Onset: 03-04-2024 03-12-2024 Episodic Comment on above: corrective baseline after acceleration noted. reactive nst. reassuring FM. pt declines bpp Residual codes; unclassified (2 sources) 39 weeks gestation of ; Translations: [39 weeks gestation of ] Onset: 03-04-2024 Episodic Residual codes; unclassified (1 source) 38 weeks gestation of ; Translations: [38 weeks gestation of ] Onset: 02-27-2024 Episodic Residual codes; unclassified (2 sources) 37 weeks gestation of ; Translations: [37 weeks gestation of ] Onset: 02-20-2024 Episodic Residual codes; unclassified (2 sources) 36 weeks gestation of ; Translations: [36 weeks gestation of ] Onset: 02-13-2024 Episodic Residual codes; unclassified (1 source) 34 weeks gestation of ; Translations: [34 weeks gestation of ] Onset: 03-01-2024 Episodic Residual codes; unclassified (1 source) 33 weeks gestation of ; Translations: [33 weeks gestation of ] Onset: 02-24-2024 Episodic Results Test Name Value Interpretation Reference Range Facility Residential [facility]umber Office Visit Reporton 01-12-2025 Residential [facility] Office Visit Report [facility] [address], [address] [place] [address] OFFICE VISIT Date of Service: 01/12/25 MR#: [id number] Acct: [id number] Name: LACY MACIAS Rep #: [id number] : 1995 Provider: Dr. Mely harmon MD Age/Sex: 29/F Location: [facility] [place] Status: Signed Intake Vital Signs 11/19/24 14:51 12/29/24 14:04 01/12/25 08:47 Height 5 ft 7 in 5 ft 7 in 5 ft 7 in Weight: 266 lb 1 oz BMI 41.6 BP 114/62 Intake Visit Reasons: 19W 5D OB Clinician Oncology Required: No Is patient in pain?: No Allergies mike Allergy (Severe, Verified 01/12/25 08:49) Anaphylaxis adhesive Allergy (Intermediate, Verified 01/12/25 08:49) Rash Sulfa (Sulfonamide Antibiotics) Adverse Reaction (Intermediate, Verified 01/12/25 08:49) Diarrhea Medications ???Medication ???Instructions ???Recorded ???Confirmed ???Type multivit-min no.71-iron fum 28 cap PO 10/07/24 01/12/25 History mg-folate no.1 1 mg-dha 300 mg capsule (PNV-Waldo) Last Menstrual Period: 08/01/24 Zika: Zika virus screening: Negative : No PFSH PFSH Medical History (spontaneous vaginal delivery) Chemical Social History adopted: No household members: spouse and family housing: house number of children: 1 current occupational status: employed current occupation: [employer] current occupational exposures/hazards: Yes (extreme heat) pets and animals: Yes (Avoid litterbox) pets and animals: cat(s) and other details: yulissa history of recent travel: Yes ([place]) out of state: Yes out of country: No sexually active: Yes Smoking Status: Never smoker alcohol intake: current alcohol intake frequency: holidays/special occasions only details: not while substance use type: does not use well-balanced diet: daily or most days caffeine: No eating out: rarely or never during the past year weight has: increased > 10 lbs what type of physical activity do you participate in: walking frequency: 5-6 times per week duration: 60-90 minutes/day janae/jewish: Mandaeism seatbelt use: always do you feel safe at home: Yes additional social history: Leonardo History 3 Elective abortions Hx Para 1 Spontaneous abortions 1 Hx # Term Pregnancies 1 Ectopic pregnancies Hx # Pregnancies Multiple births # of living children 1 Past Pregnancies Del. Date Name GA/Weeks Outcome Route Bth Weight Infant Gen Labor Lgth Anesthesia Del Locatn Provider FOB 05/09/22 5 spontaneous 03/05/24 Cole 39 live - full term 7lb 5oz Male epidural [facility] L harvinder Trevizo Leonardo Delivery Date: 03/05/24 Last Updated by: Salma Lynn IOL BPP 06/15 HPI 19W 5D OB Details: LACY MACIAS is a 29 year old who presents for routine OB visit. OB Visit STEPHAN Calculator Estimated Delivery Date Method Current WG Current Estimate 06/03/25 Ultrasound #1 19w 5d Other Estimates 05/08/25 LMP (Certain) 23w 3d 03/29/26 Ultrasound #2 19w 3d Expected Delivery Route/Plan Labor Preferences- CB/BF classes: [] labor support person: [] labor intervention preferences: [] pain management options preferred: [] cut cord/dad catch: [] : [] PP control planned: [] discussed possible routes of delivery and associated risks: [] special requests: [] Specific Issue/Plans Covid status: [] Flu vaccine: [] Tdap vaccine: [] Rhogam: [] LARC form signed: [] Problem list reviewed and updated with the most current plan of care details and appropriate orders placed. Relevant counseling for the gestational age provided. Continue routine care and follow up unless otherwise noted in visit notes/problem list details Initial Weight: 256 lb Date -???-???-???-???-???-???- ???-???-???-???-???-???- EGA Weight BP Urine Prot -???-???-???-???-???-???- ???-???-???-???-???-???- Glucose FHR FuHt Pres Dilation -???-???-???-???-???-???- ???-???-???-???-???-???- Effaced St Visit Note 10/19/24 -???-???-???-???-???-???- ???-???-???-???-???-???- 7w 4d 256 lb 5 oz (+5 oz) 116/75 -???-???-???-???-???-???- ???-???-???-???-???-???- 146 -???-???-???-???-???-???- ???-???-???-???-???-???- KW- CRL 1.16 cm cons with formal scan. declines NIPT. 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 anatomy US with MFM. 12/17/24 -???-???-???-???-???-???- ???-???-???-???-???-???- 16w 0d 262 lb 9 oz (+6 l (more content not included)... Normal [facility] Urine Cultureon 12-31-2024 URC Mixed Gram Positive Organisms [place] Count 25,000-50,000 MIXC Mixed contaminants. Submit a new specimen if indicated. Normal [facility] Comment on above: Performed By: #### M 100.4817 ####[facility] [address] [place], [address] Laboratory - Chemistry and C hemistry - challengeOrdered By: Ceci Galvez on 12-29-2024 Bilirubin Ql (U) Negative [facility] Glucose Ql (U) Negative [facility] Ketones Ql (U) Negative [facility] pH (U) 7.5 [pH] [facility] Specific gravity (U) [Rel density] 1.010 [facility] Urobilinogen (U) [Mass/Vol] Negative [facility] Laboratory - Hematology and Cell countsOrdered By: Ceci aGlvez on 12-29-2024 Hemoglobin Ql (U) Negative [facility] Laboratory - Specimen inform ationOrdered By: Ceci Galvez on 12-29-2024 Clarity (U) Clear [facility] Color (U) Yellow [facility] Laboratory - UrinalysisOrder ed By: Ceci Galvez on 12-29-2024 Nitrite Ql (U) Negative [facility] Protein Ql (U) 1+ [facility] No Panel InformationOrdered By: Ceci Galvez on 12-29-2024 Urine Leukocytes Positive [facility] Urine Non-Hemolyzed Blood Negative [facility] Residential Plumber Office Visit Reporton 12-29-2024 Residential Plumber Office Visit Report [facility]'[address], [address] [place] [address] OFFICE VISIT Date of Service: 12/29/24 MR#: [id number] Acct: [id number] Name: LACY MACIAS Rep #: [id number] : 1995 Provider: ANJUM devlin Age/Sex: 29/F Location: [facility] [place] Status: Signed Intake Vital Signs 12/29/24 14:04 Height 5 ft 7 in Weight: 263 lb 9 oz BMI 41.3 BP 125/72 H Intake Visit Reasons: OB 17wk Flank/Back Pain, Dysuria Clinician Oncology Required: No Is patient in pain?: No Allergies mike Allergy (Severe, Verified 12/29/24 13:55) Anaphylaxis adhesive Allergy (Intermediate, Verified 12/29/24 13:55) Rash Sulfa (Sulfonamide Antibiotics) Adverse Reaction (Intermediate, Verified 12/29/24 13:55) Diarrhea Medications ???Medication ???Instructions ???Recorded ???Confirmed ???Type multivit-min no.71-iron fum 28 cap PO 10/07/24 12/29/24 History mg-folate no.1 1 mg-dha 300 mg capsule (PNV-Waldo) cephalexin 500 mg tablet 500 mg PO BID 7 days #14 tabs 12/0912/29/24 Rx Last Menstrual Period: 08/01/24 Zika: Zika virus screening: Negative : No PFSH PFSH Medical History (spontaneous vaginal delivery) Chemical Social History adopted: No household members: spouse and family housing: house number of children: 1 current occupational status: employed current occupation: [employer] current occupational exposures/hazards: Yes (extreme heat) pets and animals: Yes (Avoid litterbox) pets and animals: cat(s) and other details: yulissa history of recent travel: Yes ([place]) out of state: Yes out of country: No sexually active: Yes Smoking Status: Never smoker alcohol intake: current alcohol intake frequency: holidays/special occasions only details: not while substance use type: does not use well-balanced diet: daily or most days caffeine: No eating out: rarely or never during the past year weight has: increased > 10 lbs what type of physical activity do you participate in: walking frequency: 5-6 times per week duration: 60-90 minutes/day janae/jewish: Mandaeism seatbelt use: always do you feel safe at home: Yes additional social history: Leonardo History 3 Elective abortions Hx Para 1 Spontaneous abortions 1 Hx # Term Pregnancies 1 Ectopic pregnancies Hx # Pregnancies Multiple births # of living children 1 Past Pregnancies Del. Date Name GA/Weeks Outcome Route Bth Weight Infant Gen Labor Lgth Anesthesia Del Locatn Provider FOB 05/09/22 5 spontaneous 03/05/24 Cole 39 live - full term 7lb 5oz Male epidural [facility] L harvinder Trevizo Leonardo Delivery Date: 03/05/24 Last Updated by: Salma Lynn IOL BPP 06/15 HPI OB 17wk Flank/Back Pain, Dysuria Details: LACY MACIAS is a 29 year old who presents for routine OB visit. OB Visit STEPHAN Calculator Estimated Delivery Date Method Current WG Current Estimate 06/03/25 Ultrasound #1 17w 5d Other Estimates 05/08/25 LMP (Certain) 21w 3d 06/05/25 Ultrasound #2 17w 3d Expected Delivery Route/Plan Labor Preferences- CB/BF classes: [] labor support person: [] labor intervention preferences: [] pain management options preferred: [] cut cord/dad catch: [] : [] PP control planned: [] discussed possible routes of delivery and associated risks: [] special requests: [] Specific Issue/Plans Covid status: [] Flu vaccine: [] Tdap vaccine: [] Rhogam: [] LARC form signed: [] Problem list reviewed and updated with the most current plan of care details and appropriate orders placed. Relevant counseling for the gestational age provided. Continue routine care and follow up unless otherwise noted in visit notes/problem list details Initial Weight: 256 lb Date -???-???-???-???-???-???- ???-???-???-???-???-???- EGA Weight BP Urine Prot -???-???-???-???-???-???- ???-???-???-???-???-???- Glucose FHR FuHt Pres Dilation -???-???-???-???-???-???- ???-???-???-???-???-???- Effaced St Visit Note 10/19/24 -???-???-???-???-???-???- ???-???-???-???-???-???- 7w 4d 256 lb 5 oz (+5 oz) 116/75 -???-???-???-???-???-???- ???-???-???-???-???-???- 146 -???-???-???-???-???-???- ???-???-???-???-???-???- KW- CRL 1.16 cm cons with formal scan. declines NIPT. 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 anatomy US with MFM. 12/17/24 -? (more content not included)... Normal [facility] Urine cultureOrdered By: Nakul Galvez on 12-29-2024 Bacteria identified Cx Nom (U) Positive Abnormal [facility] Laboratory - Chemistry and C hemistry - challengeOrdered By: Jerome De Anda on 12-17-2024 Glucose Ql (U) Negative [facility] Laboratory - UrinalysisOrder ed By: Jerome De Anda on 12-17-2024 Protein Ql (U) Negative [facility] Residential Plumber Office Visit Reporton 12-17-2024 Residential Plumber Office Visit Report [facility] [address], [address] [place] [address] OFFICE VISIT Date of Service: 12/17/24 MR#: [id number] Acct: [id number] Name: LACY MACIAS Rep #: [id number] : 1995 Provider: JAN Prieto ams Age/Sex: 29/F Location: [facility] Status: Signed Intake Vital Signs 10/19/24 13:07 11/19/24 14:51 12/17/24 14:34 12/17/24 14:34 Height 5 ft 7 in 5 ft 7 in 5 ft 7 in Weight: 262 lb 9 oz BMI 41.1 BP 131/82 H Intake Visit Reasons: 16wk ob Clinician Oncology Required: No Is patient in pain?: No Allergies mike Allergy (Severe, Verified 12/17/24 14:32) Anaphylaxis adhesive Allergy (Intermediate, Verified 12/17/24 14:32) Rash Sulfa (Sulfonamide Antibiotics) Adverse Reaction (Intermediate, Verified 12/17/24 14:32) Diarrhea Medications ???Medication ???Instructions ???Recorded ???Confirmed ???Type multivit-min no.71-iron fum 28 cap PO 10/07/24 12/17/24 History mg-folate no.1 1 mg-dha 300 mg capsule (PNV-Waldo) Last Menstrual Period: 08/01/24 Zika: Zika virus screening: Negative : No Have you fallen in the past year?: No PFSH PFSH Medical History (spontaneous vaginal delivery) Chemical Social History adopted: No household members: spouse and family housing: house number of children: 1 current occupational status: employed current occupation: [employer] current occupational exposures/hazards: Yes (extreme heat) pets and animals: Yes (Avoid litterbox) pets and animals: cat(s) and other details: yulissa history of recent travel: Yes ([place]) out of state: Yes out of country: No sexually active: Yes Smoking Status: Never smoker alcohol intake: current alcohol intake frequency: holidays/special occasions only details: not while substance use type: does not use well-balanced diet: daily or most days caffeine: No eating out: rarely or never during the past year weight has: increased > 10 lbs what type of physical activity do you participate in: walking frequency: 5-6 times per week duration: 60-90 minutes/day janae/jewish: Mandaeism seatbelt use: always do you feel safe at home: Yes additional social history: Leonardo History 3 Elective abortions Hx Para 1 Spontaneous abortions 1 Hx # Term Pregnancies 1 Ectopic pregnancies Hx # Pregnancies Multiple births # of living children 1 Past Pregnancies Del. Date Name GA/Weeks Outcome Route Bth Weight Infant Gen Labor Lgth Anesthesia Del Locatn Provider FOB 05/09/22 5 spontaneous 03/05/24 Cole 39 live - full term 7lb 5oz Male epidural [facility] L harvinder Trevizo Leonardo Delivery Date: 03/05/24 Last Updated by: Salma Lynn IOL BPP 06/15 HPI 16wk ob Details: LACY MACIAS is a 29 year old who presents for routine OB visit. OB Visit STEPHAN Calculator Estimated Delivery Date Method Current WG Current Estimate 06/03/25 Ultrasound #1 16w 0d Other Estimates 05/08/25 LMP (Certain) 19w 5d 06/05/25 Ultrasound #2 15w 5d Expected Delivery Route/Plan Labor Preferences- CB/BF classes: [] labor support person: [] labor intervention preferences: [] pain management options preferred: [] cut cord/dad catch: [] : [] PP control planned: [] discussed possible routes of delivery and associated risks: [] special requests: [] Specific Issue/Plans Covid status: [] Flu vaccine: [] Tdap vaccine: [] Rhogam: [] LARC form signed: [] Problem list reviewed and updated with the most current plan of care details and appropriate orders placed. Relevant counseling for the gestational age provided. Continue routine care and follow up unless otherwise noted in visit notes/problem list details Initial Weight: 256 lb Date -???-???-???-???-???-???- ???-???-???-???-???-???- EGA Weight BP Urine Prot -???-???-???-???-???-???- ???-???-???-???-???-???- Glucose FHR FuHt Pres Dilation -???-???-???-???-???-???- ???-???-???-???-???-???- Effaced St Visit Note 10/19/24 -???-???-???-???-???-???- ???-???-???-???-???-???- 7w 4d 256 lb 5 oz (+5 oz) 116/75 -???-???-???-???-???-???- ???-???-???-???-???-???- 146 -???-???-???-???-???-???- ???-???-???-???-???-???- KW- CRL 1.16 cm cons with formal scan. declines NIPT. 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 anatomy US with MFM. 12/17/24 -???-???-???-???-???-???- ???-???-?? (more content not included)... Normal [facility] Laboratory - Chemistry and C hemistry - challengeOrdered By: Jerome De Anda on 11-19-2024 Glucose Ql (U) Negative [facility] Laboratory - UrinalysisOrder ed By: Jerome De Anda on 11-19-2024 Protein Ql (U) Negative [facility] Residential Plumber Office Visit Reporton 11-19-2024 Residential Plumber Office Visit Report [facility] [address], [address] [place] [address] OFFICE VISIT Date of Service: 11/19/24 MR#: [id number] Acct: [id number] Name: LACY MACIAS Rep #: [id number] : 1995 Provider: JAN Prieto ams Age/Sex: 29/F Location: [facility] Status: Signed Intake Vital Signs 06/07/24 15:04 10/19/24 13:07 11/19/24 14:51 Height 5 ft 7 in 5 ft 7 in 5 ft 7 in Weight: 256 lb 4 oz BMI 40.1 BP 125/72 H Intake Visit Reasons: 12wk ob Chief Complaint: 12wk OB Clinician Oncology Required: No Is patient in pain?: No Allergies mike Allergy (Severe, Verified 11/19/24 14:49) Anaphylaxis adhesive Allergy (Intermediate, Verified 11/19/24 14:49) Rash Sulfa (Sulfonamide Antibiotics) Adverse Reaction (Intermediate, Verified 11/19/24 14:49) Diarrhea Medications ???Medication ???Instructions ???Recorded ???Confirmed ???Type multivit-min no.71-iron fum 28 cap PO 10/07/24 11/19/24 History mg-folate no.1 1 mg-dha 300 mg capsule (PNV-Waldo) Last Menstrual Period: 08/01/24 Have you fallen in the past year?: No PFSH PFSH Medical History (spontaneous vaginal delivery) Chemical Social History adopted: No household members: spouse and family housing: house number of children: 1 current occupational status: employed current occupation: [employer] current occupational exposures/hazards: Yes (extreme heat) pets and animals: Yes (Avoid litterbox) pets and animals: cat(s) and other details: yulissa history of recent travel: Yes ([place]) out of state: Yes out of country: No sexually active: Yes Smoking Status: Never smoker alcohol intake: current alcohol intake frequency: holidays/special occasions only details: not while substance use type: does not use well-balanced diet: daily or most days caffeine: No eating out: rarely or never during the past year weight has: increased > 10 lbs what type of physical activity do you participate in: walking frequency: 5-6 times per week duration: 60-90 minutes/day janae/jewish: Mandaeism seatbelt use: always do you feel safe at home: Yes additional social history: Leonardo History 3 Elective abortions Hx Para 1 Spontaneous abortions 1 Hx # Term Pregnancies 1 Ectopic pregnancies Hx # Pregnancies Multiple births # of living children 1 Past Pregnancies Del. Date Name GA/Weeks Outcome Route Bth Weight Gen Labor Lgth Anesthesia Del Keaganatn Provider FOB 05/09/22 5 spontaneous 03/05/24 Cole 39 live - full term 7lb 5oz Male epidural [facility] L harvinder Patterson Delivery Date: 03/05/24 Last Updated by: Salma Lynn IOL BPP 4/ HPI 12wk ob Details: LACY MACIAS is a 29 year old who presents for routine OB visit. OB Visit STEPHAN Calculator Estimated Delivery Date Method Current WG Current Estimate 06/03/25 Ultrasound #1 12w 0d Other Estimates 05/08/25 LMP (Certain) 15w 5d 06/05/25 Ultrasound #2 11w 5d Expected Delivery Route/Plan Labor Preferences- CB/BF classes: [] labor support person: [] labor intervention preferences: [] pain management options preferred: [] cut cord/dad catch: [] : [] PP control planned: [] discussed possible routes of delivery and associated risks: [] special requests: [] Specific Issue/Plans Covid status: [] Flu vaccine: [] Tdap vaccine: [] Rhogam: [] LARC form signed: [] Problem list reviewed and updated with the most current plan of care details and appropriate orders placed. Relevant counseling for the gestational age provided. Continue routine care and follow up unless otherwise noted in visit notes/problem list details Initial Weight: 256 lb Date -???-???-???-???-???-???- ???-???-???-???-???-???- EGA Weight BP Urine Prot -???-???-???-???-???-???- ???-???-???-???-???-???- Glucose FHR FuHt Pres Dilation -???-???-???-???-???-???- ???-???-???-???-???-???- Effaced St Visit Note 10/19/24 -???-???-???-???-???-???- ???-???-???-???-???-???- 7w 4d 256 lb 5 oz (+5 oz) 116/75 -???-???-???-???-???-???- ???-???-???-???-???-???- 146 -???-???-???-???-???-???- ???-???-???-???-???-???- KW- CRL 1.16 cm cons with formal scan. declines NIPT. 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 anatomy US with MFM. ACOG First Trimester First Trimester: Desire for , Alcohol, Tobacco Cessation, Illicit/Recreationa (more content not included)... Normal [facility] Chlamydia/GC CHRISTOPHER aptimaon CHLAMY,NUC ACID Negative Normal Negative [facility] Comment on above: Performed By: #### L 400.0001, M100.2200 #### [facility] [address], [address] GC BY NUC ACID Negative Normal Negative [facility] Comment on above: Result Comment: Perf ormed at: =G - [facility] [address], [place] [id number] Incubator Operator: Estephania Ovalle MD, Phone: [phone] Performed By: #### L 400.0001, M1 #### [facility] [address] [place], [address] Urine Cultureon 10-20-2024 URC Culture exhibits no growth. Normal [facility] Comment on above: Performed By: #### L 400.0001, .2199 #### [facility] [address] [place], [address] Absolute lymphocyte countOrd ered By: Jerome De Anda on 10-19-2024 Lymphocytes Auto (Unsp spec) [#/Vol] 1.77 10*3/uL 0.83-4.51 [facility] Absolute neutrophil countOrd ered By: Jerome De Anda on 10-19-2024 Neutrophils (Bld) [#/Vol] 8.2 10*3/uL High 2.0-7.7 [facility] Automated lymphocyte count a s percentage of total leukocytesOrdered By: Jerome De Anda on 10-19-2024 Lymphocytes/100 WBC Auto (Unsp spec) 16.5 % Low 19-41 [facility] Basophil percentageOrdered B y: Jerome De Anda on 10-19-2024 Basophils/100 WBC (Bld) 0.6 % 0-1 [facility] CBC W/Diff, Automatedon 10-08 Absolute Lymph 1.77 X10 3/uL Normal 0.83-4.51 [facility] Comment on above: Performed By: #### L 3890.6006, BTS, L3890.6301, L3890.6102, L509.8002, L100.0100, L501.9985, L509.4006 ####[facility] [address] [place], [address] Absolute Neut 8.2 X10 3/uL High 2.0-7.7 [facility] Comment on above: Performed By: #### L 3890.6006, BTS, L3890.6301, L3890.6102, L509.8002, L100.0100, L501.9985, L509.4006 ####[facility] [address] [place], [address] Basophils/100 WBC (Bld) 0.6 % Normal 0-1 [facility] Comment on above: Performed By: #### L 3890.6006, BTS, L3890.6301, L3890.6102, L509.8002, L100.0100, L501.9985, L509.4006 ####[facility] [address] [place], [address] Eosinophils/100 WBC (Bld) 0.5 % Normal 0-5 [facility] Comment on above: Performed By: #### L 3890.6006, BTS, L3890.6301, L3890.6102, L509.8002, L100.0100, L501.9985, L509.4006 ####[facility] [address] [place], [address] Erythrocyte distribution width (RBC) [Ratio] 13.4 % Normal 11.6-14.6 [facility] Comment on above: Performed By: #### L 3890.6006, BTS, L3890.6301, L3890.6102, L509.8002, L100.0100, L501.9985, L509.4006 ####[facility] [address] [place], [address] Hematocrit (Bld) [Volume fraction] 37.7 % Normal 37-47 [facility] Comment on above: Performed By: #### L 3890.6006, BTS, L3890.6301, L3890.6102, L509.8002, L100.0100, L501.9985, L509.4006 ####[facility] [address] [place], [address] Hemoglobin (Bld) [Mass/Vol] 12.2 g/dL Normal 12.0-15.0 [facility] Comment on above: Performed By: #### L 3890.6006, BTS, L3890.6301, L3890.6102, L509.8002, L100.0100, L501.9985, L509.4006 ####[facility] [address] [place], [address] IG% 0.200 Normal 0.0-0.9 [facility] Comment on above: Result Comment: IG% - Immature Granulocytes (promyelocytes, myelocytes and metamyelocytes) > 1% indicates that a LEFT SHIFT is Present. Performed By: #### L 3890.6006, BTS, L3890.6301, L3890.6102, L509.8002, L100.0100, L501.9985, L509.4006 ####[facility] [address] [place], [address] Lymphocytes/100 WBC (Bld) 16.5 % Low 19-41 [facility] Comment on above: Performed By: #### L 3890.6006, BTS, L3890.6301, L3890.6102, L509.8002, L100.0100, L501.9985, L509.4006 ####[facility] [address] [place], [address] MCH (RBC) [Entitic mass] 27.5 pg Normal 27.0-32.0 [facility] Comment on above: Performed By: #### L 3890.6006, BTS, L3890.6301, L3890.6102, L509.8002, L100.0100, L501.9985, L509.4006 ####[facility] [address] [place], [address] MCHC (RBC) [Mass/Vol] 32.4 g/dL Normal 32-36 [facility] Comment on above: Performed By: #### L 3890.6006, BTS, L3890.6301, L3890.6102, L509.8002, L100.0100, L501.9985, L509.4006 ####[facility] [address] [place], [address] MCV (RBC) [Entitic vol] 85.1 fL Normal 81-99 [facility] Comment on above: Performed By: #### L 3890.6006, BTS, L3890.6301, L3890.6102, L509.8002, L100.0100, L501.9985, L509.4006 ####[facility] [address] [place], [address] Monocytes/100 WBC (Bld) 5.8 % Normal 0-10 [facility] Comment on above: Performed By: #### L 3890.6006, BTS, L3890.6301, L3890.6102, L509.8002, L100.0100, L501.9985, L509.4006 ####[facility] [address] [place], [address] Neutrophils/100 WBC (Bld) 76.4 % High 47-70 [facility] Comment on above: Performed By: #### L 3890.6006, BTS, L3890.6301, L3890.6102, L509.8002, L100.0100, L501.9985, L509.4006 ####[facility] [address] [place], [address] Nucleated RBC (Bld) [#/Vol] 0 10*3/uL Normal 0-5 [facility] Comment on above: Performed By: #### L 3890.6006, BTS, L3890.6301, L3890.6102, L509.8002, L100.0100, L501.9985, L509.4006 ####[facility] [address] [place], [address] Platelet mean volume (Bld) [Entitic vol] 10.0 fL Normal 6.2-12.0 [facility] Comment on above: Performed By: #### L 3890.6006, BTS, L3890.6301, L3890.6102, L509.8002, L100.0100, L501.9985, L509.4006 ####[facility] [address] [place], [address] Platelets (Bld) [#/Vol] 372 10*3/uL Normal 150-450 [facility] Comment on above: Performed By: #### L 3890.6006, BTS, L3890.6301, L3890.6102, L509.8002, L100.0100, L501.9985, L509.4006 ####[facility] [address] [place], [address] RBC (Bld) [#/Vol] 4.43 10*6/uL Normal 4.2-5.4 [facility] Comment on above: Performed By: #### L 3890.6006, BTS, L3890.6301, L3890.6102, L509.8002, L100.0100, L501.9985, L509.4006 ####[facility] [address] [place], [address] RDW SD 41.9 fl Normal 35.1-43.9 [facility] Comment on above: Performed By: #### L 3890.6006, BTS, L3890.6301, L3890.6102, L509.8002, L100.0100, L501.9985, L509.4006 ####[facility] [address] [place], [address] WBC (Bld) [#/Vol] 10.7 10*3/uL Normal 4.4-11.0 [facility] Comment on above: Performed By: #### L 3890.6006, BTS, L3890.6301, L3890.6102, L509.8002, L100.0100, L501.9985, L509.4006 ####[facility] [address] [place], [place], [address] Chlamydia trachomatis rRNA d etection by probe and target amplification methodOrdered By: Jerome De Anda on 10-19-2024 C. trachomatis rRNA CHRISTOPHER+probe Ql (Unsp spec) Negative Negative [facility] Eosinophil percentageOrdered By: Jerome De Anda on 10-19-2024 Eosinophils/100 WBC (Bld) 0.5 % 0-5 [facility] Erythrocyte distribution wid th ratioOrdered By: Jerome De Anda on 10-19-2024 Erythrocyte distribution width (RBC) [Ratio] 13.4 % 11.6-14.6 [facility] Erythrocyte distribution wid th standard deviationOrdered By: Jerome De Anda on 10-19-2024 Erythrocyte distribution width (RBC) [Ratio] 41.9 fl 35.1-43.9 [facility] HIVon 10-19-2024 HIV Non-Reactive Normal Nonreactive [facility] Comment on above: Result Comment: Non- Reactive Reactive Repeatedly reactive samples must be confirmed according to CDC recommended confirmatory algorithms. The subresults for either HIVAG or AHIV can be used as an aid in the selection of the confirmation algorithm for reactive samples. Send out specimens with Reactive results to [facility] for confirmation. Order the HIV antibody detection and differentiation: #[id number] Performed By: #### L 3890.6006, BTS, L3890.6301, L3890.6102, L509.8002, L100.0100, L501.9985, L509.4006 ####[facility] [address] [place], [place], [phone] Hematocrit Auto (Bld) [Volum e fraction]Ordered By: Jerome De Anda on 10-19-2024 Hematocrit (Bld) [Volume fraction] 37.7 % 37-47 [facility] Hemoglobin A1con 10-19-2024 HbA1c (Bld) [Mass fraction] 5.2 % Normal <=5.6 [facility] Comment on above: Result Comment: Norm al < 5.7 % Prediabetic 5.7 - 6.4 % Diabetic >or= 6.5 % Please note range changes. Performed By: #### L 3890.6006, BTS, L3890.6301, L3890.6102, L509.8002, L100.0100, L501.9985, L509.4006 ####[facility] [address] [place], [place], [phone] Hemoglobin A1c percentageOrd ered By: Jerome De Anda on 10-19-2024 HbA1c (Bld) [Mass fraction] 5.2 % <5.7 [facility] Comment on above: Normal < 5.7 % Predi abetic 5.7 - 6.4 % Diabetic >or= 6.5 % Please note range changes. Hemoglobin measurementOrdere d By: Jerome De Anda on 10-19-2024 Hemoglobin (Bld) [Mass/Vol] 12.2 g/dL 12.0-15.0 [facility] Hepatitis C Antibodyon 10-19 Hepatitis C Ab Non-Reactive Normal Nonreactive [facility] Comment on above: Result Comment: Reac tive: Presumptive evidence of antibodies to HCV. Follow CDC recommendations for supplemental testing. Non-Reactive: Antibodies to HCV were not detected; does not exclude the possibility of exposure to HCV Reactive Results are presumptive evidence of antibodies to HCV. Follow CDC recommendations for supplemental testing. Order confirmation testing: HCV Quant by PCR testing - [facility]PCR #[id number] Non Reactive: < 0.8 Equivocal: >/= 0.8 to < 1.0 Reactive: >/= 1.0 The CDC requires that a reactive/equivocal HCV antibody result be sent out for confirmation. HCV Quant by PCR testing. Performed By: #### L 3890.6006, BTS, L3890.6301, L3890.6102, L509.8002, L100.0100, L501.9985, L509.4006 ####[facility] [address] [place], [place], [phone] Immature granulocytes/100 WB C Auto (Bld)Ordered By: Jerome De Anda on 10-19-2024 Immature granulocytes/100 WBC (Bld) 0.200 % 0.0-0.9 [facility] Comment on above: IG% - Immature Granu locytes (promyelocytes, myelocytes and metamyelocytes) > 1% indicates that a LEFT SHIFT is Present. L3890.6102on 10-19-2024 HEP B Surf Ag Non-Reactive Normal Nonreactive [facility] Comment on above: Result Comment: Reac tive: Presumptive evidence of HBV. Repeatedly reactive samples must be confirmed using a neutralization test ([employer] HBsAg Confirmatory Test) Non-Reactive: HBsAg not detected; does not exclude the possibility of exposure to HBV Performed By: #### L 3890.6006, BTS, L3890.6301, L3890.6102, L509.8002, L100.0100, L501.9985, L509.4006 ####[facility] [address] [place], [place], [phone] L509.4006on 10-19-2024 Rubella IgG REAC Normal Nonreactive [facility] Comment on above: Result Comment: Anti body Result: Interpretation Non-Reactive: Non-Immune Reactive: Immune The following results were obtained with the [employer] Rubella IgG assay. Results from assays of other manufacturers cannot be used interchangeably. Performed By: #### L 3890.6006, BTS, L3890.6301, L3890.6102, L509.8002, L100.0100, L501.9985, L509.4006 ####[facility] [address] [place], [place], [phone] Laboratory - Microbiology an d Antimicrobial susceptibilityOrdered By: Jerome De Anda on 10-19-2024 HBV surface Ag Ql (S) Non-Reactive Nonreactive [facility] Comment on above: Reactive: Presumptiv e evidence of HBV. Repeatedly reactive samples must be confirmed using a neutralization test ([employer] HBsAg Confirmatory Test)Non-Reactive: HBsAg not detected; does not exclude the possibility of exposure to HBV MCV (mean corpuscular volume ) determinationOrdered By: Jerome De Anda on 10-19-2024 MCV (RBC) [Entitic vol] 85.1 fL 81-99 [facility] Mean corpuscular hemoglobin (MCH) determinationOrdered By: Jerome De Anda on 10-19-2024 MCH (RBC) [Entitic mass] 27.5 pg 27.0-32.0 [facility] Mean corpuscular hemoglobin concentration (MCHC) determinationOrdered By: Jerome De Anda on 10-19-2024 MCHC (RBC) [Mass/Vol] 32.4 g/dL 32-36 [facility] Mean platelet volume determi nationOrdered By: Jerome De Anda on 10-19-2024 Platelet mean volume (Bld) [Entitic vol] 10.0 fL 6.2-12.0 [facility] Monocyte percentageOrdered B y: Jerome De Anda on 10-19-2024 Monocytes/100 WBC (Bld) 5.8 % 0-10 [facility] Neisseria gonorrhoeae nuclei c acid detection by amplified probe techniqueOrdered By: Jerome De Anda on 10-19-2024 N. gonorrhoeae DNA CHRISTOPHER+probe Ql (Unsp spec) Negative Negative [facility] Comment on above: Performed at: =[address] [id number] Director: Estephania Ovalle MD, Phone: [phone] Neutrophil percentageOrdered By: Jerome De Anda on 10-19-2024 Neutrophils/100 WBC (Bld) 76.4 % High 47-70 [facility] No Panel InformationOrdered By: Jerome De Anda on 10-19-2024 HIV (1&2) Antibody Non-Reactive Nonreactive [facility] Comment on above: Non-ReactiveReactive Repeatedly reactive samples must be confirmed according to CDC recommended confirmatory algorithms. The subresults for either HIVAG or AHIV can be used as an aid in the selection of the confirmation algorithm for reactive samples.Send out specimens with Reactive results to [facility] for confirmation.Order the HIV antibody detection and differentiation: #[id number] Nucleated red blood cell per centageOrdered By: Jerome De Anda on 10-19-2024 Nucleated RBC/100 WBC (Bld) [Ratio] 0 % 0-5 [facility] Residential Plumber Office Visit Reporton 10-19-2024 Residential Plumber Office Visit Report [facility] [address], [address] [place] [address] OFFICE VISIT Date of Service: 10/19/24 MR#: [id number] Acct: [id number] Name: LACY MACIAS Rep #: [id number] : 1995 Provider: JAN Prieto ams Age/Sex: 29/F Location: [facility] Status: Signed Intake Vital Signs 06/07/24 15:04 10/19/24 13:07 Height 5 ft 7 in 5 ft 7 in Weight: 256 lb 5 oz BMI 40.1 BP 116/75 Intake Visit Reasons: *EST* NOB LMP 08/05, STEPHAN 05/12 Chief Complaint: New OB Clinician Oncology Required: No Is patient in pain?: No Allergies mike Allergy (Severe, Verified 10/19/24 13:05) Anaphylaxis adhesive Allergy (Intermediate, Verified 10/19/24 13:05) Rash Sulfa (Sulfonamide Antibiotics) Adverse Reaction (Intermediate, Verified 10/19/24 13:05) Diarrhea Medications ???Medication ???Instructions ???Recorded ???Confirmed ???Type multivit-min no.71-iron fum 28 cap PO 10/07/24 10/19/24 History mg-folate no.1 1 mg-dha 300 mg capsule (PNV-Waldo) Last Menstrual Period: 08/01/24 PFSH PFSH Medical History (spontaneous vaginal delivery) Chemical Social History adopted: No household members: spouse and family housing: house number of children: 1 current occupational status: employed current occupation: [employer] current occupational exposures/hazards: Yes (extreme heat) pets and animals: Yes (Avoid litterbox) pets and animals: cat(s) and other details: yulissa history of recent travel: Yes ([place]) out of state: Yes out of country: No sexually active: Yes Smoking Status: Never smoker alcohol intake: current alcohol intake frequency: holidays/special occasions only details: not while substance use type: does not use well-balanced diet: daily or most days caffeine: No eating out: rarely or never during the past year weight has: increased > 10 lbs what type of physical activity do you participate in: walking frequency: 5-6 times per week duration: 60-90 minutes/day janae/jewish: Mandaeism seatbelt use: always do you feel safe at home: Yes additional social history: Leonardo History 3 Elective abortions Hx Para 1 Spontaneous abortions 1 Hx # Term Pregnancies 1 Ectopic pregnancies Hx # Pregnancies Multiple births # of living children 1 Past Pregnancies Del. Date Name GA/Weeks Outcome Route Bth Weight Gen Labor Lgth Anesthesia Del Locatn Provider FOB 05/09/22 5 spontaneous 03/05/24 Cole 39 live - full term 7lb 5oz Male epidural [facility] L harvinder Trevizo Leonardo Delivery Date: 03/05/24 Last Updated by: Salma Lynn IOL BPP 06/15 HPI *EST* NOB LMP 08/05, STEPHAN 05/12 Details: LACY MACIAS is a 29 year old who presents for New OB visit. OB Visit STEPHAN Calculator Estimated Delivery Date Method Current WG Current Estimate 06/03/25 Ultrasound #1 7w 4d Other Estimates 05/08/25 LMP (Certain) 11w 2d 06/05/25 Ultrasound #2 7w 2d Comments: HIV: Urine Culture: Sequential Screen: NIPT Screen: Estimated Due Date: 05/08/25 Expected Delivery Route/Plan Labor Preferences- CB/BF classes: [] labor support person: [] labor intervention preferences: [] pain management options preferred: [] cut cord/dad catch: [] : [] PP control planned: [] discussed possible routes of delivery and associated risks: [] special requests: [] Specific Issue/Plans Covid status: [] Flu vaccine: [] Tdap vaccine: [] Rhogam: [] LARC form signed: [] Problem list reviewed and updated with the most current plan of care details and appropriate orders placed. Relevant counseling for the gestational age provided. Continue routine care and follow up unless otherwise noted in visit notes/problem list details Initial Weight: 256 lb Date -???-???-???-???-???-???- ???-???-???-???-???-???- EGA Weight BP Urine Prot -???-???-???-???-???-???- ???-???-???-???-???-???- Glucose FHR FuHt Pres Dilation -???-???-???-???-???-???- ???-???-???-???-???-???- Effaced St Visit Note 10/19/24 -???-???-???-???-???-???- ???-???-???-???-???-???- 7w 4d 256 lb 5 oz (+5 oz) 116/75 -???-???-???-???-???-???- ???-???-???-???-???-???- 146 -???-???-???-???-???-???- ???-???-???-???-???-???- KW- CRL 1.16 cm cons with formal scan. declines NIPT. NOB labs today Menstrual History Last Menstrual Period: 08/01/24 Reported LMP: definite Normal amount/duration: Yes Frequency in days: 28-30 On hormonal BC at conception: No hCG+: 09/29/24 Antepartum Record Genetic Screening: Congenital Heart Defect: Other, Neural Tube Defect: Other, Hemoglobinopathy Or Carrier: O (more content not included)... Normal [facility] Platelet countOrdered By: Wilner De Anda on 10-19-2024 Platelets (Bld) [#/Vol] 372 10*3/uL 150-450 [facility] RBC Auto (Bld) [#/Vol]Ordere d By: Jerome De Anda on 10-19-2024 RBC (Bld) [#/Vol] 4.43 10*6/uL 4.2-5.4 [facility] Syphilis Antibodieson 2024 Syphilis Abs Non-Reactive Normal Nonreactive [facility] Comment on above: Performed By: #### L 3890.6006, BTS, L3890.6301, L3890.6102, L509.8002, L100.0100, L501.9985, L509.4006 ####[facility] [address] [place], [address] Type AND Screenon 10-19-2024 Ab SCREEN GEL Negative Normal [facility] Comment on above: Order Comment: PN Performed By: #### L 3890.6006, BTS, L3890.6301, L3890.6102, L509.8002, L100.0100, L501.9985, L509.4006 ####[facility] [address], [address] Urine cultureOrdered By: Kalpesh De Anda on 10-19-2024 Bacteria identified Cx Nom (U) Culture exhibits no growth. [facility] White blood cell (WBC) count Ordered By: Jerome De Anda on 10-19-2024 WBC (Bld) [#/Vol] 10.7 10*3/uL 4.4-11.0 [facility] Transvaginal w/Preg USon Transvaginal w/Preg US [facility] Imaging Services [address] [place], [place] [address] Transvaginal w/Preg US MR#: [id number] Acct: [id number] Name: LACY MACIAS Rep #: [id number] : 1995 F 29 From: Sharath Minaya MD PCP: Care Physician,No Primary Status: REG CLI Study: Transvaginal w/Preg US Date of Exam: 10/08/24 Exam# [id number] Ordering Dr: Mely Castillo PROCEDURE: TRANSVAGINAL W/PREG US 10/08/2024 REASON FOR EXAM: DATING TECHNIQUE: TRANSVAGINAL W/PREG US COMPARISON: Reviewed FINDINGS Single live intrauterine gestation is noted yolk sac measuring 2.6 mm, crown-rump length 2.1 mm corresponding to a gestational age of 6 weeks and 0 days. Average heart rate 78 beats per minute. Uterus is otherwise unremarkable measuring up to 8.9 cm. Cervix is closed. Moderate fluid in the cul-de-sac is seen. Subchorionic hemorrhage suggested measuring up to 1.2 cm. Bilateral ovaries are normal with preserved symmetric vascular flow. US/Transvaginal w/Preg US IMPRESSION: Single live intrauterine gestation, as described above. [facility] CC: Dr. Mely Castillo MD; No Primary Care Physician Cns: Signed Normal [facility] Serum human chorionic gonado tropin detection for pregnancyOrdered By: Mely Castillo on 09-30-2024 HCG ( test) Ql 460 mIU/mL High <9 [facility] Comment on above: Gestational Age0.2-1 Week: 5-50 mIU/mL1-2 Weeks: 50-500 mIU/mL2-3 Weeks: 100-5000 mIU/mL3-4 Weeks: 500-10,000 mIU/mL4-5 Weeks:1000-50,000 mIU/mL5-6 Weeks: 10,000-100,000 mIU/mL6-8 Weeks: 15,000-200,000 mIU/mL2-3 Months:10,000-100,000 mIU/mL hCG Titer Quant., Serumon HCG QUANT. 460 mIU/mL High <9 non-preg [facility] Comment on above: Result Comment: Gest ational Age 0.2-1 Week: 5-50 mIU/mL 1-2 Weeks: 50-500 mIU/mL 2-3 Weeks: 100-5000 mIU/mL 3-4 Weeks: 500-10,000 mIU/mL 4-5 Weeks:1000-50,000 mIU/mL 5-6 Weeks: 10,000-100,000 mIU/mL 6-8 Weeks: 15,000-200,000 mIU/mL 2-3 Months:10,000-100,000 mIU/mL Performed By: #### L 700.8000 ####[facility] [address] [place], [place], [phone] Serum human chorionic gonado tropin detection for pregnancyOrdered By: Mely Castillo on 09-28-2024 HCG ( test) Ql 185 mIU/mL High <9 [facility] Comment on above: Gestational Age0.2-1 Week: 5-50 mIU/mL1-2 Weeks: 50-500 mIU/mL2-3 Weeks: 100-5000 mIU/mL3-4 Weeks: 500-10,000 mIU/mL4-5 Weeks:1000-50,000 mIU/mL5-6 Weeks: 10,000-100,000 mIU/mL6-8 Weeks: 15,000-200,000 mIU/mL2-3 Months:10,000-100,000 mIU/mL hCG Titer Quant., Serumon HCG QUANT. 185 mIU/mL High <9 non-preg [facility] Comment on above: Result Comment: Gest ational Age 0.2-1 Week: 5-50 mIU/mL 1-2 Weeks: 50-500 mIU/mL 2-3 Weeks: 100-5000 mIU/mL 3-4 Weeks: 500-10,000 mIU/mL 4-5 Weeks:1000-50,000 mIU/mL 5-6 Weeks: 10,000-100,000 mIU/mL 6-8 Weeks: 15,000-200,000 mIU/mL 2-3 Months:10,000-100,000 mIU/mL Performed By: #### L 700.8000 ####[facility] [address] [facility]. [place], [place], [address] HCG ( test) QlOrder ed By: Jerome De Anda on 06-07-2024 Human Chorionic Gonadotropin, Quant < 1 mIU/mL <9 [facility] Comment on above: Gestational Age0.2-1 Week: 5-50 mIU/mL1-2 Weeks: 50-500 mIU/mL2-3 Weeks: 100-5000 mIU/mL3-4 Weeks: 500-10,000 mIU/mL4-5 Weeks:1000-50,000 mIU/mL5-6 Weeks: 10,000-100,000 mIU/mL6-8 Weeks: 15,000-200,000 mIU/mL2-3 Months:10,000-100,000 mIU/mL Laboratory - Chemistry and C hemistry - challengeOrdered By: Jerome De Anda on 06-07-2024 HCG ( test) Ql (U) Negative [facility] Residential Plumber Office Visit Reporton 06-07-2024 Residential Plumber Office Visit Report [facility] [address], [address] [place] [address] OFFICE VISIT Date of Service: 06/07/24 MR#: [id number] Acct: [id number] Name: LACY MACIAS Rep #: [id number] : 1995 Provider: JAN Prieto ams Age/Sex: 29/F Location: [facility] Status: Signed Intake Vital Signs 04/16/24 11:09 06/07/24 15:02 06/07/24 15:04 Height 5 ft 7 in 5 ft 7 in 5 ft 7 in Weight: 257 lb 2 oz BMI 40.2 BP 131/83 H Intake Visit Reasons: 6 week follow-up PP depression Chief Complaint: 6wk Depression FU Clinician Oncology Required: No Is patient in pain?: No Allergies mike Allergy (Severe, Verified 06/07/24 15:01) Anaphylaxis adhesive Allergy (Intermediate, Verified 06/07/24 15:01) Rash Sulfa (Sulfonamide Antibiotics) Adverse Reaction (Intermediate, Verified 06/07/24 15:01) Diarrhea Medications ???Medication ???Instructions ???Recorded ???Confirmed ???Type citalopram 20 mg tablet 20 mg PO DAILY #90 tabs 06/07/24 0 06/07/24 Rx Post menopausal: No : No PFSH Medical History Supervision of high-risk Obesity affecting Non-reactive NST (non-stress test) Amenorrhea Chemical Social History adopted: No household members: spouse and family current occupational status: employed current occupation: [employer] current occupational exposures/hazards: Yes (extreme heat) pets and animals: Yes (Avoid litterbox) pets and animals: cat(s) and other details: yulissa history of recent travel: Yes ([place]) out of state: Yes out of country: No sexually active: Yes Smoking Status: Never smoker alcohol intake: current alcohol intake frequency: holidays/special occasions only details: not while substance use type: does not use diet: other well-balanced diet: daily or most days caffeine: No eating out: rarely or never during the past year weight has: increased > 10 lbs what type of physical activity do you participate in: walking frequency: 5-6 times per week duration: 60-90 minutes/day janae/jewish: Mandaeism seatbelt use: always do you feel safe at home: Yes additional social history: Leonardo HPI 6 week follow-up PP depression Details: LACY MACIAS is a 29 year old who presents for follow up for depression. doing well on medication and requesting to stay on it at that dose. Doing well with and with . had positive HPT thurs/fri/sat then had negatives, but had heavy bleeding over the weekend. plan for hcg. History 2 Elective abortions Hx Para 1 Spontaneous abortions 1 Hx # Term Pregnancies 1 Ectopic pregnancies Hx # Pregnancies Multiple births # of living children 1 Past Pregnancies Del. Date Name GA/Weeks Outcome Route Bth Weight Infant Gen Labor Lgth Anesthesia Del Locatn Provider FOB 05/09/22 5 spontaneous 03/05/24 Cole 39 live - full term 7lb 5oz Male epidural [facility] L harvinder Trevizo Leonardo Delivery Date: 03/05/24 Last Updated by: Salma Lynn IOL BPP 06/15 ROS Const Constitutional: Reports system reviewed and no additional complaints, except as documented Cardio Card: Reports system reviewed and no additional complaints, except as documented Resp Resp: Reports system reviewed and no additional complaints, except as documented GI GI: Reports system reviewed and no additional complaints, except as documented : Reports system reviewed and no additional complaints, except as documented Skin Skin/Breast: Reports system reviewed and no additional complaints, except as documented Neuro Neuro: Reports system reviewed and no additional complaints, except as documented Psych Psych: Reports system reviewed and no additional complaints, except as documented Exam Const General: cooperative, healthy appearing, comfortable and no acute distress Orientation: alert, awake and oriented x3 Neck Neck: normal visual inspection and full ROM Resp Effort Inspection: normal respiratory effort, able to speak in complete sentences and symmetric chest movement Skin General: no rashes or lesions noted Neuro General: patient alert, patient awake and patient oriented x3 Cognition: normal cognition Speech: speech normal Gait: normal gait Extrem General: normal to inspection and full ROM Psych Appearance: grossly normal and well kempt Mental Status: mental status grossly normal Affect: normal affect Speech and Movement: speech and movement normal Attitude: cooperative Thought Process: normal Thought Content: normal Judgment: judgment good Results POC Urine Office , Urine Neg (more content not included)... Normal [facility] Serum human chorionic gonado tropin detection for pregnancyOrdered By: Jerome De Anda on 06-07-2024 HCG ( test) Ql < 1 mIU/mL <9 [facility] Comment on above: Gestational Age0.2-1 Week: 5-50 mIU/mL1-2 Weeks: 50-500 mIU/mL2-3 Weeks: 100-5000 mIU/mL3-4 Weeks: 500-10,000 mIU/mL4-5 Weeks:1000-50,000 mIU/mL5-6 Weeks: 10,000-100,000 mIU/mL6-8 Weeks: 15,000-200,000 mIU/mL2-3 Months:10,000-100,000 mIU/mL hCG Titer Quant., Serumon HCG QUANT. < 1 Normal <9 non-preg [facility] Comment on above: Result Comment: Gest ational Age 0.2-1 Week: 5-50 mIU/mL 1-2 Weeks: 50-500 mIU/mL 2-3 Weeks: 100-5000 mIU/mL 3-4 Weeks: 500-10,000 mIU/mL 4-5 Weeks:1000-50,000 mIU/mL 5-6 Weeks: 10,000-100,000 mIU/mL 6-8 Weeks: 15,000-200,000 mIU/mL 2-3 Months:10,000-100,000 mIU/mL Performed By: #### L 700.8000 ####[facility] [address] [place], [address] Residential Plumber Office Visit Reporton 04-16-2024 Residential Plumber Office Visit Report [facility] [address], [address] [place] [address] OFFICE VISIT Date of Service: 04/16/24 MR#: [id number] Acct: [id number] Name: LACY MACIAS Rep #: [id number] : 1995 Provider: JAN Prieto ams Age/Sex: 28/F Location: [facility] Status: Signed Intake Vital Signs 03/08/24 10:10 04/16/24 11:07 04/16/24 11:09 Height 5 ft 7 in 5 ft 7 in 5 ft 7 in Weight: 260 lb BMI 40.7 BP 124/84 H Intake Visit Reasons: 6 wk ppv Chief Complaint: 6wk pp Is patient in pain?: No Feel stressed/tense/nervous/an xious/difficulty sleeping: very much Allergies mike Allergy (Severe, Verified 04/16/24 11:08) Anaphylaxis adhesive Allergy (Intermediate, Verified 04/16/24 11:08) Rash Sulfa (Sulfonamide Antibiotics) Adverse Reaction (Intermediate, Verified 04/16/24 11:08) Diarrhea Medications ???Medication ???Instructions ???Recorded ???Confirmed ???Type multivitamin no.47-iron fum 27 1 cap PO DAILY 07/08/23 04/16/24 History mg-folate no.1 1 mg-dha 300 mg capsule (PNV-DHA) famotidine 20 mg tablet (Pepcid) 20 mg PO DAILY #30 tabs 12/25/23 04/16/24 Rx zuranolone 25 mg capsule (Zurzuvae) 50 mg (2 x 25 mg) PO QDAY 14 da ys 04/16/24 04/16/24 Rx #28 caps : Yes PFSH Medical History (Updated 04/16/24 @ 11:11 by Jerome De Anda CNM) Supervision of high-risk Obesity affecting Non-reactive NST (non-stress test) Amenorrhea Chemical Social History adopted: No household members: spouse and family current occupational status: employed current occupation: [employer] current occupational exposures/hazards: Yes (extreme heat) pets and animals: Yes (Avoid litterbox) pets and animals: cat(s) and other details: yulissa history of recent travel: Yes ([place]) out of state: Yes out of country: No sexually active: Yes Smoking Status: Never smoker alcohol intake: current alcohol intake frequency: holidays/special occasions only details: not while substance use type: does not use diet: other well-balanced diet: daily or most days caffeine: No eating out: rarely or never during the past year weight has: increased > 10 lbs what type of physical activity do you participate in: walking frequency: 5-6 times per week duration: 60-90 minutes/day janae/jewish: Mandaeism seatbelt use: always do you feel safe at home: Yes additional social history: Leonardo History 2 Elective abortions Hx Para 1 Spontaneous abortions 1 Hx # Term Pregnancies 1 Ectopic pregnancies Hx # Pregnancies Multiple births # of living children 1 Past Pregnancies Del. Date Name GA/Weeks Outcome Route Bth Weight Infant Gen Labor Lgth Anesthesia Del Locatn Provider FOB 05/09/22 5 spontaneous 03/05/24 Cole 39 live - full term 7lb 5oz Male epidural [facility] L harvinder Trevizo Leonardo Delivery Date: 03/05/24 Last Updated by: Salma Lynn IOL BPP 06/15 Depression Screen PHQ-2/9 PHQ-2 Over the last 2 weeks, how often have you been bothered by any of the following problems? 1. Little interest or pleasure in doing things: nearly every day 2. Feeling down, depressed, or hopeless: more than half the days Total score: 5 If score is 2 or greater, continue 3. Trouble falling or staying asleep, or sleeping too much: not at all 4. Feeling tired or having little energy: not at all 5. Poor appetite or overeating: not at all 6. Feeling bad about yourself - or that you are a failure or have let yourself and your family down: nearly every day 7. Trouble concentrating on things, such as reading the newspaper or watching television: several days 8. Moving or speaking so slowly that other people could have noticed? - Or the opposite - being so fidgety or restless that you have been moving around a lot more than usual: not at all 9. Thoughts that you would be better off or of hurting yourself in some way: not at all Total score: 9 If you checked off any problems, how difficult have these problems made it for you to do your work, take care of things at home, or get along with other people?: somewhat difficult Source: Developed by Drs. Keshawn Pedraza, Radha De Anda, Fabien Woods and colleagues, with an educational sydni from [employer]. Post HPI 6 wk ppv: Details: LACY MACIAS is a 28 year old who presents for her post visit. concerns with depression sx. no thoughts of self harm or harming . Feeding: Breast Menses resumed: No [place] since delivery: Yes Emotional Support: Yes Last Pap:: 07/24/23 Control Method: NFP Coding Level of Care Code No Charge (more content not included)... Normal [facility] MR/BMS.[facility] 03-08-2024 /BMS.[facility] [address] [place] [address] OFFICE VISIT Date of Service: 03/08/24 MR#: [id number] Acct: [id number] Name: LACY MACIAS Rep #: [id number] : 1995 Provider: Dunia Walters NP Age/Sex: 28/F [place] [facility] [place]: Signed Intake Vital Signs 03/04/24 09:21 03/08/24 10:10 Height 5 ft 7 in 5 ft 7 in Intake Visit Reasons: assessment Chief Complaint: assessment Allergies mike Allergy (Severe, Verified 03/04/24 13:54) Anaphylaxis adhesive Allergy (Intermediate, Verified 03/04/24 13:54) Rash Sulfa (Sulfonamide Antibiotics) Adverse Reaction (Intermediate, Verified 03/04/24 13:54) Diarrhea : Yes PFSH PFSH Medical History (Updated 03/12/24 @ 00:01 by Norbert Horta) Non-reactive NST (non-stress test) Amenorrhea Chemical Social History adopted: No household members: spouse and family current occupational status: employed current occupation: [employer] current occupational exposures/hazards: Yes (extreme heat) pets and animals: Yes (Avoid litterbox) pets and animals: cat(s) and other details: yulissa history of recent travel: Yes ([place]) out of state: Yes out of country: No sexually active: Yes Smoking Status: Never smoker alcohol intake: current alcohol intake frequency: holidays/special occasions only details: not while substance use type: does not use diet: other well-balanced diet: daily or most days caffeine: No eating out: rarely or never during the past year weight has: increased > 10 lbs what type of physical activity do you participate in: walking frequency: 5-6 times per week duration: 60-90 minutes/day janae/jewish: Mandaeism seatbelt use: always do you feel safe at home: Yes additional social history: Leonardo History 2 Elective abortions Hx Para 1 Spontaneous abortions 1 Hx # Term Pregnancies 1 Ectopic pregnancies Hx # Pregnancies Multiple births # of living children 1 Past Pregnancies Del. Date Name GA/Weeks Outcome Route Bth Weight Infant Gen Labor Lgth Anesthesia Del Locatn Provider FOB 05/09/22 5 spontaneous 03/05/24 Cole 39 live - [facility] Leonardo Delivery Date: 03/05/24 Last Updated by: Salma Lynn [facility] BP 06/15 HPI HPI HPI: LACY MACIAS, is a 28 F who presents to the office today for assessment. History provided by the patient. ROS ROS Const Constitutional: Denies fever(s) or lethargy : Denies nipple discharge Skin Skin/Breast: Denies breast pain (feeling more full and leaking this morning ), breast skin changes or nipple discharge Details: and latching difficulty, patient states would like to switch to pumping and feeding, milk starting to come in, feeling more full, minimal discomfort with pumping Exam Maternal Assessment Breast Assessment Bilateral Breasts: Full Nipple Assessment Bilateral Nipples: Everted Assessment Baby Feeding History Is your baby latching onto the breast: Sometmes (will not actively suck at breast per mother ) Supplements Supplement Type:: Expressed milk Frequency: q2-3 hours Amount: 20 ml Breast Pumping Type of Breast Pump: Spectra Frequency: q2-3 hours Amount: 30-45 ml Reason for supplements or pumping:: Difficulty latching, maternal choice to pump and feed at this time Goals Breast Feeding Goals: To provide as much breastmilk as possible Exam Const General: comfortable and no acute distress Orientation: alert and oriented x3 Chest Breast inspection: normal inspection of the breasts Resp Effort Inspection: normal respiratory effort Skin General: no rashes or lesions noted Psych Appearance: grossly normal Mental Status: mental status grossly normal Affect: normal affect Assessment and Plan Assessment and Plan (1) Care and examination of lactating mother: Plan: Educated on feeding q2-3 hours, pumping, pump settings, milk supply, milk storage and milk regulation. Follow up with PRN. Coding Level of Care Code 74736 PRVT COUNSELING INDIVID Diagnoses Care and examination of lactating mother Z39.1 Time Spent (min) 15 03/15/24 1412 Date Dunia Walters NP HINGING MACHINE OPERATOR-C Kamarigner Signature: Date (if applicable) CC: Normal [facility] Discharge Instructionon 02-08 Discharge Instruction [facility] Medical Records Department [address] [place] [address] Instructions for Home/Discharge Instructions 03/05/24 1115 MR#: [id number] Acct: [id number] Name: LACY MACIAS Rep #: [id number] : 1995 28 From: Barbie Trevizo CNM PCP: Care Physician,No Primary Status:ADM IN Discharge Instructions Diet Discharge Diet: No restrictions DC O2, CPAP, BIPAP needs Home O2 Discharge instructions: No Dressing / Incision Discharge Activity: May Not Drive and May Shower May resume sexual activity in: 6 weeks Weight Bearing Status: Full weight bearing Dressing / Incision Call your doctor if your incision/area has: Sudden Increased Bleeding, Increased Pain/ Swelling and Foul Smelling Discharge Call your doctor if you observe: Fever of 101 or Higher, Numbness or Tingling, Change in Color, Inability to urinate, Inability to have a bowel movement, Using more than 1 pad per hour, Shortness of breath, Dizziness, Fainting spells, Chest pain, Calf discomfort and Uncontrolled pain Follow Up Care Please Follow Up With: Barbie Trevizo CNM When: 6 weeks , please call office to make an appointment. Congratulations on the of your baby! Test Results: Test results from this visit will be discussed in further detail at your follow-up appointment, if applicable. Discharge Plan Admission Admit Date/Time: 03/04/24 12:07 Attending Provider: Barbie Trevizo Primary Care Provider: Care Physician,Radha Primary Discharge Orders/Prescriptions Prescriptions: No Action PNV-DHA 27 mg iron-1 mg -300 mg capsule 1 cap PO DAILY famotidine [Pepcid] 20 mg tablet 20 mg PO DAILY Qty: 30 6RF Referrals / Follow Up: Care Physician,No Primary [Primary Care Provider] - 03/05/24 1115 Barbie Trevizo CNM CC: No Primary Care Physician Signed [facility] MR/OB.VAGDELIon 03-05-2024 [facility] Medical Records Department [address] [place] [address] OB VAGINAL DELIVERY 03/05/24 1110 MR#: [id number] Acct: [id number] Name: LACY MACIAS Rep #: [id number] : 1995 28 From: Barbie Trevizo CNM PCP: Care Physician,No Primary Status:ADM IN Location: [place] [id number] Assessment Plan (1) (spontaneous vaginal delivery): COMMENT: LC IOL- BPP 4/8, Cole (2) Encounter for induction of labor: Maternal Data Information STEPHAN Calculator Estimated Delivery Date Method Current WG Current Estimate 03/11/24 LMP (Certain) 39w 1d Final STEPHAN: 03/11/24 Final STEPHAN Source: LMP Gestational age: 39 Vaginal Delivery Maternal Presentation Maternal Presentation: Medically Indicated Induction Maternal Presentation: at 39 weeks with IOL for BPP 4/8. Type of Induction: Pitocin, Olivares Bulb, Amniotomy and Cytotec Medical Reason for Induction: Other (BPP 4/8 with decreased FM) Vaginal Delivery Information Procedure Performed: Spontaneous Vaginal Delivery Date of Procedure: 03/05/24 Pre-Procedure Diagnosis: see problem list Post-Procedure Diagnosis: Type of anesthesia: Epidural Estimated Blood Loss: 300 Time of Delivery: 10:36 Findings Description of procedure: Patient began pushing and delivered the head in the MARTHA presentation. The head was delivered atraumatically. The anterior and posterior shoulders delivered without complication followed by the rest of the and the infant was placed on the maternal abdomen. spontaneous cry, RT present for delivery for light mec fluid. Delayed cord clamping was employed for approximately 2 minutes. Cord was clamped and cut and gentle traction was applied to the cord and the placenta delivered spontaneously immediately following it was noted to be intact with three-vessel cord. The perineum and vagina were inspected and noted to have 1st degree laceration repaired with 3-0 vicryl. EBL was 300, increased trickle of vaginal bleeding, cytotec and pitocin open wide to achieve excellent hemostasis and firm uterus. Patient and infant tolerated delivery well. Presentation: Vertex Amniotic Membrane Rupture Type: Artificial Amniotic Fluid Description: Lightly stained meconium Placenta Disposition: [facility] Cord Vessel Description: 3 Vessels Cord Entanglement: None Infant A Gender: Male (1 minute): 8 (5 minute): 9 Delayed Cord Clamping: Yes Post Vaginal Deli Medications given after delivery: IV Pitocin and Other (cytotec) Laceration: 1st degree Complication Complications: No Procedures Urinary/Genital 52xxx-59xxx: [id number] Vaginal Delivery [facility] 03/05/24 1115 Cosigner Signature (if applicable): CC: JAN Trevizo; No Primary Care Physician Signed Normal [facility] AST(SGOT)on 03-04-2024 AST [Catalytic activity/Vol] 15 U/L Normal 15-37 [facility] Comment on above: Performed By: #### L 501.1105, L501.4405, L501.4100, L501.0900, L501.1400 ####[facility] [address] [place], [address] Absolute neutrophil countOrd ered By: Jerome De Anda on 03-04-2024 Neutrophils (Bld) [#/Vol] 10.4 10*3/uL High 2.0-7.7 [facility] Alanine Aminotransferas (SGP T)on 03-04-2024 ALT [Catalytic activity/Vol] 27 U/L Normal 13-56 [facility] Comment on above: Performed By: #### L 501.1105, L501.4405, L501.4100, L501.0900, L501.1400 ####[facility] [address] [place], [place], [address] Basophil percentageOrdered B y: Jerome De Anda on 03-04-2024 Basophils/100 WBC (Bld) 0.4 % 0-1 [facility] Biophysical Prof W/O Non Str eson 03-04-2024 Biophysical Prof W/O Non Stres [facility] Imaging Services [address] [place], [place] [address] Biophysical Prof W/O Non Stres MR#: [id number] Acct: [id number] Name: LACY MACIAS Rep #: [id number] : 1995 F 28 From: Yulisa mccullough MD PCP: Care Physician,No Primary Status: ADM IN Study: Biophysical Prof W/O Non Stres Date of Exam: 05/05/23 Exam# [id number] Ordering Dr: Jerome De Anda [facility] ADDENDUM by Dr. Yulisa Bazzi MD on 03/04/24 at 1320 [id number] HISTORY: r/o pre-e, decreased movement. TECHNIQUE: Transabdominal pelvic ultrasound was performed. 22 images. COMPARISON: 03/01/2024. FINDINGS: INTRAUTERINE GESTATION(s): Single. PRESENTATION: Cephalic. PLACENTA: Posterior, grade 3. No placenta previa. HEART MOTION: 144 bpm. AMNIOTIC FLUID INDEX (RENAN): 9.6 cm. Largest fluid pocket 4.6 cm. BIOPHYSICAL PROFILE (BPP): -- Breathin /2. -- Movement: 0 /2. -- Tone: 2/2. --RENAN: 2/2. 03/04/24 1320 Date cc: JAN De Anda; No Primary Care Physician * Signed ADDENDUM by Dr. Yulisa Bazzi MD on 03/04/24 at 1320 US/Biophysical Prof W/O Non Stres IMPRESSION: Single living intrauterine with an abnormal 4/8 biophysical profile score. N.B. : The above Results were Read Back by Yulisa Bazzi MD to Jerome De Anda OT, and understanding confirmed on 03/04/2024 13:54:30 (ET). Electronically Signed: Yulisa Bazzi MD at 13:20 EST , 03/04/24 1401 Date cc: JAN De Anda; No Primary Care Physician * Signed We are attempting to reach an attending provider to discuss findings. An addendum with communication details will be sent when the communication is complete. [id number] HISTORY: r/o pre-e, decreased movement. TECHNIQUE: Transabdominal pelvic ultrasound was performed. 22 images. COMPARISON: 03/01/2024. FINDINGS: INTRAUTERINE GESTATION(s): Single. PRESENTATION: Cephalic. PLACENTA: Posterior, grade 3. No placenta previa. HEART MOTION: 144 bpm. AMNIOTIC FLUID INDEX (RENAN): 9.6 cm. Largest fluid pocket 4.6 cm. BIOPHYSICAL PROFILE (BPP): 4 /8 -- Breathin /2. -- Movement: 0 /2. -- Tone: 2/2. --RENAN: 2/2. US/Biophysical Prof W/O Non Stres IMPRESSION: Single living intrauterine with an abnormal 4/8 biophysical profile score. Electronically Signed: Yulisa Bazzi MD at 13:20 EST , CC: JAN De Anda; No Primary Care Physician Cns: Signed Normal [facility] CBC W/Diff, Automatedon 12-2 Absolute Lymph 2.04 X10 3/uL Normal 0.83-4.51 [facility] Comment on above: Performed By: #### David HANNA, L100.0100 #### [facility] [address] [place], [address] Absolute Neut 10.4 X10 3/uL High 2.0-7.7 [facility] Comment on above: Performed By: #### David HANNA, L100.0100 #### [facility] [address] [place], [address] Basophils/100 WBC (Bld) 0.4 % Normal 0-1 [facility] Comment on above: Performed By: #### David HANNA, L100.0100 #### [facility] [address] [place], [address] Eosinophils/100 WBC (Bld) 0.3 % Normal 0-5 [facility] Comment on above: Performed By: #### David HANNA, L100.0100 #### [facility] [address] [place], [address] Erythrocyte distribution width (RBC) [Ratio] 13.4 % Normal 11.6-14.6 [facility] Comment on above: Performed By: #### David HANNA, L100.0100 #### [facility] [address] [place], [address] Hematocrit (Bld) [Volume fraction] 37.8 % Normal 37-47 [facility] Comment on above: Performed By: #### David HANNA, L100.0100 #### [facility] [address] [place], [address] Hemoglobin (Bld) [Mass/Vol] 12.3 g/dL Normal 12.0-15.0 [facility] Comment on above: Performed By: #### David HANNA, L100.0100 #### [facility] [address] [place], [address] IG% 0.600 Normal 0.0-0.9 [facility] Comment on above: Result Comment: IG% - Immature Granulocytes (promyelocytes, myelocytes and metamyelocytes) > 1% indicates that a LEFT SHIFT is Present. Performed By: #### David HANAN, L100.0100 #### [facility] [address] [place], [address] Lymphocytes/100 WBC (Bld) 15.5 % Low 19-41 [facility] Comment on above: Performed By: #### David HANNA, L100.0100 #### [facility] [address] [place], [address] MCH (RBC) [Entitic mass] 29.1 pg Normal 27.0-32.0 [facility] Comment on above: Performed By: #### David HANNA, L100.0100 #### [facility] [address] [place], [address] MCHC (RBC) [Mass/Vol] 32.5 g/dL Normal 32-36 [facility] Comment on above: Performed By: #### David HANNA, L100.0100 #### [facility] [address] [place], [address] MCV (RBC) [Entitic vol] 89.6 fL Normal 81-99 [facility] Comment on above: Performed By: #### David HANNA, L100.0100 #### [facility] [address] [place], [address] Monocytes/100 WBC (Bld) 4.8 % Normal 0-10 [facility] Comment on above: Performed By: #### David HANNA, L100.0100 #### [facility] [address] [place], [address] Neutrophils/100 WBC (Bld) 78.4 % High 47-70 [facility] Comment on above: Performed By: #### David HANNA, L100.0100 #### [facility] [address] [place], [address] Nucleated RBC (Bld) [#/Vol] 0 10*3/uL Normal 0-5 [facility] Comment on above: Performed By: #### David HANNA, L100.0100 #### [facility] [address] [place], [address] Platelet mean volume (Bld) [Entitic vol] 10.9 fL Normal 6.2-12.0 [facility] Comment on above: Performed By: #### David HANNA, L100.0100 #### [facility] [address] [place], [address] Platelets (Bld) [#/Vol] 303 10*3/uL Normal 150-450 [facility] Comment on above: Performed By: #### David HANNA, L100.0100 #### [facility] [address] [place], [address] RBC (Bld) [#/Vol] 4.22 10*6/uL Normal 4.2-5.4 [facility] Comment on above: Performed By: #### David HANNA, L100.0100 #### [facility] [address] [place], [address] RDW SD 43.7 fl Normal 35.1-43.9 [facility] Comment on above: Performed By: #### David HANNA, L100.0100 #### [facility] [address] [place], [address] WBC (Bld) [#/Vol] 13.2 10*3/uL High 4.4-11.0 [facility] Comment on above: Performed By: #### David HANNA, L100.0100 #### [facility] [address] [place], [address] Eosinophil percentageOrdered By: Jerome De Anda on 03-04-2024 Eosinophils/100 WBC (Bld) 0.3 % 0-5 [facility] Erythrocyte distribution wid th (RBC) [Ratio]Ordered By: Jerome De Anda on 03-04-2024 Erythrocyte distribution width (RBC) [Entitic vol] 43.7 fL 35.1-43.9 [facility] Erythrocyte distribution wid th ratioOrdered By: Jerome De Anda on 03-04-2024 Erythrocyte distribution width (RBC) [Ratio] 13.4 % 11.6-14.6 [facility] Estimated glomerular filtrat ion rate (GFR) AmericanOrdered By: Jerome De Anda on 03-04-2024 Estimated GFR (MDRD) Amer 150 mL/min >60 [facility] Comment on above: GFR Calc Estimation of creatinine maury aranceOrdered By: Jerome De Anda on 03-04-2024 Estimated Creatinine Clearance Calc 191.29 ml/min [facility] Glomerular filtration rate ( GFR) estimationOrdered By: Jerome De Anda on 03-04-2024 Estimated GFR (MDRD) Non-Af Amer 124 mL/min >60 [facility] Comment on above: Non- GFR Calc H AND P Exam - OB/GYNon 02-08 H&P Exam - [employer] [facility] Medical Records Department [address] [place] [address] H P Exam - [employer] 03/04/24 1318 MR#: [id number] Acct: [id number] Name: LACY MACIAS Rep #: [id number] : 1995 28 From: Jerome De Anda CNM PCP: Care Physician,No Primary Status:ADM IN Location: [id number] HPI - General General Date of Admission: 03/04/24 Date of Service: 03/04/24 HPI Narrative LACY MACIAS, is a 28 F 39.0 who presents to unit after being seen in the office and reported decreased movement. BPP was 4/8. NST is reactive. decision made for induction of labor Maternal Data Information STEPHAN Calculator Estimated Delivery Date Method Current WG Current Estimate 03/11/24 LMP (Certain) 39w 0d Final STEPHAN: 03/11/24 Final STEPHAN Source: US >20 weeks Gestational age: 39.0 PFSH PFSH Medical History (Updated 03/04/24 @ 13:21 by Jerome De Anda CNM) Non-reactive NST (non-stress test) Amenorrhea Chemical Home Medications ???Medication ???Instructions ???Recorded ???Last Taken ???Type multivitamin no.47-iron fum 27 1 cap PO DAILY 07/08/23 02/23/24 History mg-folate no.1 1 mg-dha 300 mg capsule (PNV-DHA) famotidine 20 mg tablet (Pepcid) 20 mg PO DAILY #30 tabs 12/25/23 02/23/24 Rx Allergy/AdvReac Type Severity Reaction Status Date / Time mike Allergy Severe Anaphylaxis Verified 03/04/24 09:45 adhesive Allergy Intermediate Rash Verified 03/04/24 09:45 Sulfa (Sulfonamide AdvReac Intermediate Diarrhea Verified 03/04/24 09:45 Antibiotics) Social History adopted: No household members: spouse and family current occupational status: employed current occupation: [employer] current occupational exposures/hazards: Yes (extreme heat) pets and animals: Yes (Avoid litterbox) pets and animals: cat(s) and other details: yulissa history of recent travel: Yes ([place]) out of state: Yes out of country: No sexually active: Yes Smoking Status: Never smoker alcohol intake: current alcohol intake frequency: holidays/special occasions only details: not while substance use type: does not use diet: other well-balanced diet: daily or most days caffeine: No eating out: rarely or never during the past year weight has: increased > 10 lbs what type of physical activity do you participate in: walking frequency: 5-6 times per week duration: 60-90 minutes/day janae/jewish: Mandaeism seatbelt use: always do you feel safe at home: Yes additional social history: Leonardo History 2 Elective abortions Hx Para 0 Spontaneous abortions 1 Hx # Term Pregnancies Ectopic pregnancies Hx # Pregnancies Multiple births # of living children 0 Past Pregnancies Del. Date Name GA/Weeks Outcome Route Bth Weight Infant Gen Labor Lgth Anesthesia Del Hugo Provider FOB 05/09/22 5 spontaneous Visit Details Expected Delivery Route/Plan Labor Preferences- CB/BF classes: encouraged labor support person: Leonardo labor intervention preferences: [] pain management options preferred: epidural if requested cut cord/dad catch: maybe : yes PP control planned: discussed discussed possible routes of delivery and associated risks: [] special requests: [] Plans Covid status: [] Flu vaccine: declines Tdap vaccine: given Rhogam: na LARC form signed: yes Problem list reviewed and updated with the most current plan of care details and appropriate orders placed. Relevant counseling for the gestational age provided. Continue routine care and follow up unless otherwise noted in visit notes/problem list details OB Flowsheet Initial Weight: Not Recorded Date -???-???-???-???-???-???- ???-???-???-???-???-???- EGA Weight BP Urine Prot -???-???-???-???-???-???- ???-???-???-???-???-???- Glucose FHR FuHt Pres Dilation -???-???-???-???-???-???- ???-???-???-???-???-???- Effaced St Visit Note 07/24/23 -???-???-???-???-???-???- ???-???-???-???-???-???- 7w 0d 268 lb 136/79 -???-???-???-???-???-???- ???-???-???-???-???-???- 140 -???-???-???-???-???-???- ???-???-???-???-???-???- KW- CRL cons with dates. Declines NIPT 08/13/23 -???-???-???-???-???-???- ???-???-???-???-???-???- 9w 6d 265 lb 8 oz Trace -???-???-???-???-???-???- ???-???-???-???-???-???- Negative -???-???-???-???-???-???- ???-???-???-???-???-???- Nurse visit with vaginal twinges-UA neg. Trace ketones. Urine culture pending. Force fluids. Reassure. No bleeding/dischage. 08/21/23 -???-???-???-???-???-???- ???-???-???-???-???-???- 11w 0d 269 lb 126/83 Negative -???-???-???-???-???-???- ???-???-???-???-???-???- Negative 160 -???-???-???-???-???-???- ???-???-???-???-???-???- SM (more content not included)... Normal [facility] Hematocrit Auto (Bld) [Volum e fraction]Ordered By: Jerome De Anda on 03-04-2024 Hematocrit (Bld) [Volume fraction] 37.8 % 37-47 [facility] Hemoglobin measurementOrdere d By: Jerome De Anda on 03-04-2024 Hemoglobin (Bld) [Mass/Vol] 12.3 g/dL 12.0-15.0 [facility] Immature granulocytes/100 WB C Auto (Bld)Ordered By: Jerome De Anda on 03-04-2024 Immature granulocytes/100 WBC (Bld) 0.600 % 0.0-0.9 [facility] Comment on above: IG% - Immature Granu locytes (promyelocytes, myelocytes and metamyelocytes) > 1% indicates that a LEFT SHIFT is Present. L509.8000on 03-04-2024 Syphilis Abs Non-Reactive Normal [facility] Comment on above: Performed By: #### L 509.8000 #### [facility] [address] [place], [address] Laboratory - Chemistry and C hemistry - challengeOrdered By: Jerome De Anda on 03-04-2024 AST [Catalytic activity/Vol] 15 U/L 15-37 [facility] Lymphocytes Auto (Unsp spec) [#/Vol]Ordered By: Jerome De Anda on 03-04-2024 Lymphocytes (Bld) [#/Vol] 2.04 10*3/uL 0.83-4.51 [facility] Lymphocytes/100 WBC Auto (Un sp spec)Ordered By: Jerome De Anda on 03-04-2024 Lymphocytes/100 WBC (Bld) 15.5 % Low 19-41 [facility] MCV (mean corpuscular volume ) determinationOrdered By: Jerome De Anda on 03-04-2024 MCV (RBC) [Entitic vol] 89.6 fL 81-99 [facility] Mean corpuscular hemoglobin (MCH) determinationOrdered By: Jerome De Anda on 03-04-2024 MCH (RBC) [Entitic mass] 29.1 pg 27.0-32.0 [facility] Mean corpuscular hemoglobin concentration (MCHC) determinationOrdered By: Jerome De Anda on 03-04-2024 MCHC (RBC) [Mass/Vol] 32.5 g/dL 32-36 [facility] Mean platelet volume determi nationOrdered By: Jerome De Anda on 03-04-2024 Platelet mean volume (Bld) [Entitic vol] 10.9 fL 6.2-12.0 [facility] Monocyte percentageOrdered B y: Jerome De Anda on 03-04-2024 Monocytes/100 WBC (Bld) 4.8 % 0-10 [facility] Neutrophil percentageOrdered By: Jerome De Anda on 03-04-2024 Neutrophils/100 WBC (Bld) 78.4 % High 47-70 [facility] Nucleated red blood cell per centageOrdered By: Jerome De Anda on 03-04-2024 Nucleated RBC/100 WBC (Bld) [Ratio] 0 % 0-5 [facility] Residential Plumber Office Visit Reporton 03-04-2024 Residential Plumber Office Visit Report [facility]'s [address], [address] [place] [address] OFFICE VISIT Date of Service: 03/04/24 MR#: [id number] Acct: [id number] Name: LACY MACIAS Rep #: [id number] : 1995 Provider: Dr. Mely harmon MD Age/Sex: 28/F Location: [facility] Status: Signed Intake Vital Signs 12/25/23 09:44 02/27/24 09:40 03/04/24 08:38 03/04/24 08:39 03/04/24 09:00 Height 5 ft 7 in 5 ft 7 in 5 ft 7 in 5 ft 7 in Weight: 279 lb 4 oz BMI 43.7 BP 140/84 H 134/85 H 134/84 H Intake Visit Reasons: 39 WK OB Clinician Oncology Required: No Is patient in pain?: No Allergies mike Allergy (Severe, Verified 03/04/24 08:38) Anaphylaxis adhesive Allergy (Intermediate, Verified 03/04/24 08:38) Rash Sulfa (Sulfonamide Antibiotics) Adverse Reaction (Intermediate, Verified 03/04/24 08:38) Diarrhea Medications ???Medication ???Instructions ???Recorded ???Confirmed ???Type multivitamin no.47-iron fum 27 1 cap PO DAILY 07/08/23 03/04/24 History mg-folate no.1 1 mg-dha 300 mg capsule (PNV-DHA) famotidine 20 mg tablet (Pepcid) 20 mg PO DAILY #30 tabs 12/25/23 03/04/24 Rx Last Menstrual Period: 06/05/23 Zika: Zika virus screening: Negative : No Have you fallen in the past year?: No PFSH PFSH Medical History Amenorrhea Chemical Social History adopted: No household members: spouse and family current occupational status: employed current occupation: [employer] current occupational exposures/hazards: Yes (extreme heat) pets and animals: Yes (Avoid litterbox) pets and animals: cat(s) and other details: yulissa history of recent travel: Yes ([place]) out of state: Yes out of country: No sexually active: Yes Smoking Status: Never smoker alcohol intake: current alcohol intake frequency: holidays/special occasions only details: not while substance use type: does not use diet: other well-balanced diet: daily or most days caffeine: No eating out: rarely or never during the past year weight has: increased > 10 lbs what type of physical activity do you participate in: walking frequency: 5-6 times per week duration: 60-90 minutes/day janae/jewish: Mandaeism seatbelt use: always do you feel safe at home: Yes additional social history: Leonardo History 2 Elective abortions Hx Para 0 Spontaneous abortions 1 Hx # Term Pregnancies Ectopic pregnancies Hx # Pregnancies Multiple births # of living children 0 Past Pregnancies Del. Date Name GA/Weeks Outcome Route Bth Weight Infant Gen Labor Lgth Anesthesia Del Locatn Provider FOB 05/09/22 5 spontaneous HPI 39 WK OB Details: LACY MACIAS is a 28 year old who presents for routine OB visit. OB Visit STEPHAN Calculator Estimated Delivery Date Method Current WG Current Estimate 03/11/24 LMP (Certain) 39w 0d Expected Delivery Route/Plan Labor Preferences- CB/BF classes: encouraged labor support person: Leonardo labor intervention preferences: [] pain management options preferred: epidural if requested cut cord/dad catch: maybe : yes PP control planned: discussed discussed possible routes of delivery and associated risks: [] special requests: [] Specific Issue/Plans Covid status: [] Flu vaccine: declines Tdap vaccine: given Rhogam: na LARC form signed: yes Problem list reviewed and updated with the most current plan of care details and appropriate orders placed. Relevant counseling for the gestational age provided. Continue routine care and follow up unless otherwise noted in visit notes/problem list details Initial Weight: Not Recorded Date -???-???-???-???-???-???- ???-???-???-???-???-???- EGA Weight BP Urine Prot -???-???-???-???-???-???- ???-???-???-???-???-???- Glucose FHR FuHt Pres Dilation -???-???-???-???-???-???- ???-???-???-???-???-???- Effaced St Visit Note 07/24/23 -???-???-???-???-???-???- ???-???-???-???-???-???- 7w 0d 268 lb 136/79 -???-???-???-???-???-???- ???-???-???-???-???-???- 140 -???-???-???-???-???-???- ???-???-???-???-???-???- KW- CRL cons with dates. Declines NIPT 08/13/23 -???-???-???-???-???-???- ???-???-???-???-???-???- 9w 6d 265 lb 8 oz Trace -???-???-???-???-???-???- ???-???-???-???-???-???- Negative -???-???-???-???-???-???- ???-???-???-???-???-???- Nurse visit with vaginal twinges-UA neg. Trace ketones. Urine culture pending. Force fluids. Reassure. No bleeding/dischage. 08/21/23 -???-???-???-???-???-???- ???-???-???-???-???-???- 11w 0d 269 lb 126/83 Negative -???-???-???-???-???-???- ???-???-???-???-??? (more content not included)... Normal [facility] Platelet countOrdered By: Wilner De Anda on 03-04-2024 Platelets (Bld) [#/Vol] 303 10*3/uL 150-450 [facility] Protein+Creatinine Ratio,Uri neon 03-04-2024 PROT:CRE RATIO 80 mg/g CRE Normal 0-200 [facility] Comment on above: Performed By: #### L 501.1105, L501.4405, L501.4100, L501.0900, L501.1400 #### [facility] [address] [place], [address] Protein (U) [Mass/Vol] 15.6 mg/dL High <11.9 [facility] Comment on above: Performed By: #### L 501.1105, L501.4405, L501.4100, L501.0900, L501.1400 #### [facility] [address] [place], [address] UR CREAT 196.00 mg/dL Normal NO RANGE EST. [facility] Comment on above: Performed By: #### L 501.1105, L501.4405, L501.4100, L501.0900, L501.1400 #### [facility] [address] [place], [address] Protein/Creatinine (U) [Mass ratio]Ordered By: Jerome De Anda on 03-04-2024 Urine Protein/Creatinine Ratio 80 mg/g CRE 0-200 [facility] RBC Auto (Bld) [#/Vol]Ordere d By: Jerome De Anda on 03-04-2024 RBC (Bld) [#/Vol] 4.22 10*6/uL 4.2-5.4 [facility] Random urine protein measure mentOrdered By: Jerome De Anda on 03-04-2024 Protein (U) [Mass/Vol] 15.6 mg/dL High 0.0-11.8 [facility] Serum Creatinine AND GFRon 1 05-05-2023 Creatinine [Mass/Vol] 0.61 mg/dL Normal 0.55-1.02 [facility] Comment on above: Result Comment: The validity of the calculated GFR GFRAA in patients over 70 years has not been determined. Clinical correlation is essential. Performed By: #### L 501.1105, L501.4405, L501.4100, L501.0900, L501.1400 #### [facility] [address] [place], [address] ECRCL 191.29 ml/min Normal [facility] Comment on above: Performed By: #### L 501.1105, L501.4405, L501.4100, L501.0900, L501.1400 #### [facility] [address] [place], [address] EST GFR - AA 150 mL/min Normal >60 [facility] Comment on above: Result Comment: Afri can Surinamese GFR Calc Performed By: #### L 501.1105, L501.4405, L501.4100, L501.0900, L501.1400 #### [facility] [address] [place], [address] GFR/1.73 sq M.predicted among non-blacks MDRD (S/P/Bld) [Vol rate/Area] 124 mL/min/{1.73_m2} Normal >60 [facility] Comment on above: Result Comment: Non- GFR Calc Performed By: #### L 501.1105, L501.4405, L501.4100, L501.0900, L501.1400 #### [facility] [address] [place], [address] Serum or plasma alanine villavicencio otransferase (ALT) measurementOrdered By: Jerome De Anda on 03-04-2024 ALT [Catalytic activity/Vol] 27 U/L 13-56 [facility] Serum or plasma creatinine m easurement (mass/volume)Ordered By: Jerome De Anda on 03-04-2024 Creatinine [Mass/Vol] 0.61 mg/dL 0.55-1.02 [facility] Comment on above: The validity of the calculated GFR & GFRAA in patients over 70 years has not been determined. Clinical correlation is essential. Serum or plasma uric acid me asurement (mass/volume)Ordered By: Jerome De Anda on 03-04-2024 Urate [Mass/Vol] 3.8 mg/dL 2.6-6.0 [facility] Comment on above: The drugs N-Acetylcy steine and Metamizole may falsely depress this assay. Treponema sp Ab Ql (S)Ordere d By: Jerome De Anda on 03-04-2024 Syphilis Total Antibody Non-Reactive [facility] Type AND Screenon 03-04-2024 ABO and Rh group Nom (Bld) Blood group A Rh(D) positive Normal [facility] Comment on above: Order Comment: Labor Performed By: #### B TS, L100.0100 #### [facility] [address] [place], [address] Uric Acidon 03-04-2024 URIC 3.8 mg/dL Normal 2.6-6.0 [facility] Comment on above: Result Comment: The drugs N-Acetylcysteine and Metamizole may falsely depress this assay. Performed By: #### L 501.1105, L501.4405, L501.4100, L501.0900, L501.1400 ####[facility] [address] [place], [address] Urine creatinine measurement (mass/volume)Ordered By: Jerome De Anda on 03-04-2024 Creatinine (U) [Mass/Vol] 196.00 mg/dL NO RANGE EST. [facility] White blood cell (WBC) count Ordered By: Jerome De Anda on 03-04-2024 WBC (Bld) [#/Vol] 13.2 10*3/uL High 4.4-11.0 [facility] Biophysical Prof W/O Non Str eson 03-01-2024 Biophysical Prof W/O Non Stres [facility] Imaging Services [address] [place], [place] [address] Biophysical Prof W/O Non Stres MR#: [id number] Acct: [id number] Name: LACY MACIAS Rep #: [id number] : 1995 F 28 From: Shakila Gaytan MD PCP: Care Physician,No Primary Status: REG CLI Study: Biophysical Prof W/O Non Stres Date of Exam: 05/02/23 Exam# [id number] Ordering Dr: Jerome De Anda CNM [id number] INDICATION: Obesity affecting EXAMINATION: Ultrasound US Biophysical Profile W/O Nonst TECHNIQUE: Transabdominal pelvic ultrasound was performed. COMPARISON: Prior study dated: February 23, 2024 FINDINGS: INTRAUTERINE GESTATION(s): Single. HEART MOTION is 143 bpm. AMNIOTIC FLUID INDEX (RENAN): 10.4 BIOPHYSICAL PROFILE (BPP): 8/8 -- Breathin/2. -- Movement: 2/2. -- Tone: 2/2. --RENAN: 2/2. PRESENTATION: Cephalic PLACENTA: Posterior. US/Biophysical Prof W/O Non Stres IMPRESSION: Single live intrauterine with a biophysical profile of 8/8 . Electronically Signed: Shakila Gaytan MD at 9:20 EST , CC: JAN De Anda; No Primary Care Physician Cns: Signed Normal [facility] Residential Plumber Office Visit Reporton 02-27-2024 Residential Plumber Office Visit Report [facility]'s [address], [address] [place] [address] OFFICE VISIT Date of Service: 02/27/24 MR#: [id number] Acct: [id number] Name: LACY MACIAS Rep #: [id number] : 1995 Provider: Dr. Mely harmon MD Age/Sex: 28/F Location: [facility] Status: Signed Intake Vital Signs 12/25/23 09:44 02/23/24 09:10 02/27/24 09:39 02/27/24 09:40 Height 5 ft 7 in 5 ft 7 in 5 ft 7 in 5 ft 7 in Weight: 278 lb 6 oz BMI 43.6 BP 120/77 Intake Visit Reasons: 38 WK ob Clinician Oncology Required: No Is patient in pain?: Yes (lower back pain) Allergies mike Allergy (Severe, Verified 02/27/24 09:39) Anaphylaxis adhesive Allergy (Intermediate, Verified 02/27/24 09:39) Rash Sulfa (Sulfonamide Antibiotics) Adverse Reaction (Intermediate, Verified 02/27/24 09:39) Diarrhea Medications ???Medication ???Instructions ???Recorded ???Confirmed ???Type multivitamin no.47-iron fum 27 1 cap PO DAILY 07/08/23 02/27/24 History mg-folate no.1 1 mg-dha 300 mg capsule (PNV-DHA) famotidine 20 mg tablet (Pepcid) 20 mg PO DAILY #30 tabs 12/25/23 02/27/24 Rx Last Menstrual Period: 06/05/23 Zika: Zika virus screening: Negative : No Have you fallen in the past year?: No PFSH PFSH Medical History Amenorrhea Chemical Social History adopted: No household members: spouse and family current occupational status: employed current occupation: [employer] current occupational exposures/hazards: Yes (extreme heat) pets and animals: Yes (Avoid litterbox) pets and animals: cat(s) and other details: yulissa history of recent travel: Yes ([place]) out of state: Yes out of country: No sexually active: Yes Smoking Status: Never smoker alcohol intake: current alcohol intake frequency: holidays/special occasions only details: not while substance use type: does not use diet: other well-balanced diet: daily or most days caffeine: No eating out: rarely or never during the past year weight has: increased > 10 lbs what type of physical activity do you participate in: walking frequency: 5-6 times per week duration: 60-90 minutes/day janae/jewish: Mandaeism seatbelt use: always do you feel safe at home: Yes additional social history: Leonardo History 2 Elective abortions Hx Para 0 Spontaneous abortions 1 Hx # Term Pregnancies Ectopic pregnancies Hx # Pregnancies Multiple births # of living children 0 Past Pregnancies Del. Date Name GA/Weeks Outcome Route Bth Weight Gen Labor Lgth Anesthesia Del [facility] Provider FOB 05/09/22 5 spontaneous HPI 38 WK ob Details: LACY MACIAS is a 28 year old who presents for routine OB visit. OB Visit STEPHAN Calculator Estimated Delivery Date Method Current WG Current Estimate 03/11/24 LMP (Certain) 38w 1d Expected Delivery Route/Plan Labor Preferences- CB/BF classes: encouraged labor support person: Leonardo labor intervention preferences: [] pain management options preferred: epidural if requested cut cord/dad catch: maybe : yes PP control planned: discussed discussed possible routes of delivery and associated risks: [] special requests: [] Specific Issue/Plans Covid status: [] Flu vaccine: declines Tdap vaccine: given Rhogam: na LARC form signed: yes Problem list reviewed and updated with the most current plan of care details and appropriate orders placed. Relevant counseling for the gestational age provided. Continue routine care and follow up unless otherwise noted in visit notes/problem list details Initial Weight: Not Recorded Date -???-???-???-???-???-???- ???-???-???-???-???-???- EGA Weight BP Urine Prot -???-???-???-???-???-???- ???-???-???-???-???-???- Glucose FHR FuHt Pres Dilation -???-???-???-???-???-???- ???-???-???-???-???-???- Effaced St Visit Note 07/24/23 -???-???-???-???-???-???- ???-???-???-???-???-???- 7w 0d 268 lb 136/79 -???-???-???-???-???-???- ???-???-???-???-???-???- 140 -???-???-???-???-???-???- ???-???-???-???-???-???- KW- CRL cons with dates. Declines NIPT 08/13/23 -???-???-???-???-???-???- ???-???-???-???-???-???- 9w 6d 265 lb 8 oz Trace -???-???-???-???-???-???- ???-???-???-???-???-???- Negative -???-???-???-???-???-???- ???-???-???-???-???-???- Nurse visit with vaginal twinges-UA neg. Trace ketones. Urine culture pending. Force fluids. Reassure. No bleeding/dischage. 08/21/23 -???-???-???-???-???-???- ???-???-???-???-???-???- 11w 0d 269 lb 126/83 Negative -???-???-???-???-???-???- ???-???-???-???-???-???- Negative 1 (more content not included)... Normal [facility] Biophysical Prof W/O Non Str eson 02-23-2024 Biophysical Prof W/O Non Stres [facility] Imaging Services [address] [place], [place] [address] Biophysical Prof W/O Non Stres MR#: [id number] Acct: [id number] Name: LACY MACIAS Rep #: [id number] : 1995 F 28 From: Jonathan mathias MD PCP: Care Physician,No Primary Status: REG CLI Study: Biophysical Prof W/O Non Stres Date of Exam: 04/25/23 Exam# [id number] Ordering Dr: Jerome De Anda CNM [id number] STUDY: OBSTETRICAL ULTRASOUND - BIOPHYSICAL PROFILE REASON FOR EXAM: Female, 28 years old Obesity affecting LMP: June 05, 2023. PRIOR ULTRASOUND: Comparison is made with prior study dated February 13, 2024. TECHNIQUE: Transabdominal TECHNICAL QUALITY: Adequate. FINDINGS: There is a single intrauterine fetus. The fetus is in a cephalic presentation. There is demonstrated cardiac activity with a heart rate of 152 bpm. There is a normal amniotic fluid volume. The largest amniotic fluid pocket measures 5.8 cm x 3.6 cm cm. The amniotic fluid index (RENAN) is 6 cm. The placenta is anterior in location and is not low lying. There are Grade 1 placental changes. Age by LMP: 37 weeks, 4 days. STEPHAN by LMP: March 11, 2024. BIOPHYSICAL PROFILE: Breathing Movements (FBM): 0 Gross Body Movements (GBM): 2 Tone (FT): 2 Amniotic Fluid Volume (AFV): 2 TOTAL SCORE: 6 / 8 US/Biophysical Prof W/O Non Stres IMPRESSION: biophysical profile of 08/15. Electronically Signed: Jonathan Fontaine MD at 9:21 EST , CC: JAN De Anda; No Primary Care Physician Cns: Signed Normal [facility] OB Triage Progress Noteon OB Triage Progress Note [facility] Medical Records Department [address] [place] [address] OB Triage Progress Note 02/23/24 1021 MR#: [id number] Acct: [id number] Name: LACY MACIAS Rep #: [id number] : 1995 28 From: Jerome De Anda CNM PCP: Care Physician,No Primary Status:REG CLI Y DOS: Location: [place] [address] Progress Notes Date of Service: 02/23/24 Progress Note: Patient presents for triage evaluation secondary to BPP 6 at 37 weeks. FHT: 130 Moderate variability reactive no decelerations category I tracing Tobias: no Contractions Assessment and plan: final BPP 8/10, Reactive NST, reassuring maternal and status patient discharged to home to follow-up in office. See problem list details for additional plan i nformation. Charges/Coding Multi Select Codes Urinary/Genital Urinary/Genital CPT Codes: 10543-79 non-stress test Interp Assessment Plan (1) NST (non-stress test) reactive on surveillance: COMMENT: corrective baseline after acceleration noted. reactive nst. reassuring FM. pt declines bpp (2) Non-reactive NST (non-stress test): COMMENT: BPP 8/8, d/c home (3) Nausea and vomiting during : (4) Obesity affecting : QUALIFIERS: Trimester: third trimester Obesity type affecting : unspecified obesity Qualified Code(s): O99.213 - Obesity complicating , third trimester COMMENT: A1C nl -BMI 42 at NOB plan growth us at 32 and 36 weeks, nsts weekly starting at 34 weeks (5) Supervision of high-risk : QUALIFIERS: Trimester: third trimester Qualified Code(s): O09.93 - Supervision of high risk , unspecified, third trimester COMMENT: PRR, , STEPHAN 03/11/24, Leonardo (6) : QUALIFIERS: Weeks of gestation: 37 weeks Qualified Code(s): Z3A.37 - 37 weeks gestation of COMMENT: GBS neg, discussed genetic carrier testing, declined 02/23/24 1023 Date Jerome De Anda CNM Cosigner Signature (if applicable): Date CC: JAN De nAda; No Primary Care Physician Signed Normal [facility] OB Triage Physician Noteon 1 04-23-2023 OB Triage Physician Note [facility] Medical Records Department [address] [place] [address] OB Triage Physician Note 02/21/24 1058 MR#: [id number] Acct: [id number] Name: LACY MACIAS Rep #: [id number] : 1995 28 From: Barbie Trevizo CNM PCP: Care Physician,No Primary Status:DEP CLI Y Location: [facility] HPI - General General Date of Service: 02/20/24 HPI Narrative LACY MACIAS, is a 28 F who [id number] at 37.1 with drop in fhr on nst in office. presented to for prolonged monitoring. Maternal Data Information STEPHAN Calculator Estimated Delivery Date Method Current WG Current Estimate 03/11/24 LMP (Certain) 37w 2d PFSH PFSH Medical History Amenorrhea Chemical Home Medications ???Medication ???Instructions ???Recorded ???Last Taken ???Type multivitamin no.47-iron fum 27 1 cap PO DAILY 07/08/23 02/13/24 08:00 History mg-folate no.1 1 mg-dha 300 mg 1 cap capsule (PNV-DHA) famotidine 20 mg tablet (Pepcid) 20 mg PO DAILY #30 tabs 12/25/23 02/13/24 08:00 Rx 20 mg Allergy/AdvReac Type Severity Reaction Status Date / Time mike Allergy Severe Anaphylaxis Verified 02/20/24 09:43 adhesive Allergy Intermediate Rash Verified 02/20/24 09:43 Sulfa (Sulfonamide AdvReac Intermediate Diarrhea Verified 02/20/24 09:43 Antibiotics) Social History adopted: No household members: spouse and family current occupational status: employed current occupation: [employer] current occupational exposures/hazards: Yes (extreme heat) pets and animals: Yes (Avoid litterbox) pets and animals: cat(s) and other details: yulissa history of recent travel: Yes ([place]) out of state: Yes out of country: No sexually active: Yes Smoking Status: Never smoker alcohol intake: current alcohol intake frequency: holidays/special occasions only details: not while substance use type: does not use diet: other well-balanced diet: daily or most days caffeine: No eating out: rarely or never during the past year weight has: increased > 10 lbs what type of physical activity do you participate in: walking frequency: 5-6 times per week duration: 60-90 minutes/day janae/jewish: Mandaeism seatbelt use: always do you feel safe at home: Yes additional social history: Leonardo History 2 Elective abortions Hx Para 0 Spontaneous abortions 1 Hx # Term Pregnancies Ectopic pregnancies Hx # Pregnancies Multiple births # of living children 0 Past Pregnancies Del. Date Name GA/Weeks Outcome Route Bth Weight Infant Gen Labor Lgth Anesthesia Del Locatn Provider FOB 05/09/22 5 spontaneous Visit Details Expected Delivery Route/Plan Labor Preferences- CB/BF classes: encouraged labor support person: Leonardo labor intervention preferences: [] pain management options preferred: epidural if requested cut cord/dad catch: maybe : yes PP control planned: discussed discussed possible routes of delivery and associated risks: [] special requests: [] Plans Covid status: [] Flu vaccine: declines Tdap vaccine: given Rhogam: na LARC form signed: yes Problem list reviewed and updated with the most current plan of care details and appropriate orders placed. Relevant counseling for the gestational age provided. Continue routine care and follow up unless otherwise noted in visit notes/problem list details OB Flowsheet Initial Weight: Not Recorded Date -???-???-???-???-???-???- ???-???-???-???-???-???- EGA Weight BP Urine Prot -???-???-???-???-???-???- ???-???-???-???-???-???- Glucose FHR FuHt Pres Dilation -???-???-???-???-???-???- ???-???-???-???-???-???- Effaced St Visit Note 07/24/23 -???-???-???-???-???-???- ???-???-???-???-???-???- 7w 0d 268 lb 136/79 -???-???-???-???-???-???- ???-???-???-???-???-???- 140 -???-???-???-???-???-???- ???-???-???-???-???-???- KW- CRL cons with dates. Declines NIPT 08/13/23 -???-???-???-???-???-???- ???-???-???-???-???-???- 9w 6d 265 lb 8 oz Trace -???-???-???-???-???-???- ???-???-???-???-???-???- Negative -???-???-???-???-???-???- ???-???-???-???-???-???- Nurse visit with vaginal twinges-UA neg. Trace ketones. Urine culture pending. Force fluids. Reassure. No bleeding/dischage. 08/21/23 -???-???-???-???-???-???- ???-???-???-???-???-???- 11w 0d 269 lb 126/83 Negative -???-???-???-???-???-???- ???-???-???-???-???-???- Negative 160 -???-???-???-???-???-???- ???-???-???-???-???-???- SM- SM- no vb cramping ordered anatomy scan. 09/22/23 -???-???-???-???-???-???- ???-???-???-???-???-???- 15w 4d 268 lb 4 oz 125/86 Negative -???-???-???-???-???-???- ???-???-???-???-???-?? (more content not included)... Normal [facility] - Chemistry and C hemistry - challengeon 02-20-2024 Glucose Ql (U) Negative [facility] - Urinalysison Protein Ql (U) Negative [facility] Residential Plumber Office Visit Reporton 02-20-2024 Residential Plumber Office Visit Report [facility]'s [address], [address] [place] [address] OFFICE VISIT Date of Service: 02/20/24 MR#: [id number] Acct: [id number] Name: LACY MACIAS Rep #: [id number] : 1995 Provider: Dr. Yue Welch DO Age/Sex: 28/F Location: [facility] Status: Signed with Addenda ADDENDUM by Dr. Yue Patel DO on 02/20/24 at 1116 Office Procedure Documentation entered by Yue Patel DO 02/20/24 11:16: Non-stress Test Non-Stress Test Indications for Monitoring: Yes Morbid obesity Heart Rate Baseline: 160 Heart Rate Variability: moderate Movement: Present Heart Rate Accelerations: Present Decelerations: Present (however, may be maternal ) Contractions: Absent Impression: No Unsatisfactory antepartum test Details: unable to complete the NST due to maternal hypotension. she was taken to [facility]. 02/20/24 1116 Date Yue Patel DO cc: * Signed Intake Vital Signs 12/25/23 09:44 02/13/24 11:47 02/20/24 08:26 Height 5 ft 7 in 5 ft 7 in 5 ft 7 in Weight: 277 lb BMI 43.4 BP 125/85 H Intake Visit Reasons: 37 WK OB Clinician Oncology Required: No Is patient in pain?: No Allergies mike Allergy (Severe, Verified 02/20/24 08:27) Anaphylaxis adhesive Allergy (Intermediate, Verified 02/20/24 08:27) Rash Sulfa (Sulfonamide Antibiotics) Adverse Reaction (Intermediate, Verified 02/20/24 08:27) Diarrhea Medications ???Medication ???Instructions ???Recorded ???Confirmed ???Type multivitamin no.47-iron fum 27 1 cap PO DAILY 07/08/23 02/20/24 History mg-folate no.1 1 mg-dha 300 mg capsule (PNV-DHA) famotidine 20 mg tablet (Pepcid) 20 mg PO DAILY #30 tabs 12/25/23 02/20/24 Rx Last Menstrual Period: 06/05/23 Zika: Zika virus screening: Negative : No PFSH PFSH Medical History Amenorrhea Chemical Social History adopted: No household members: spouse and family current occupational status: employed current occupation: [employer] current occupational exposures/hazards: Yes (extreme heat) pets and animals: Yes (Avoid litterbox) pets and animals: cat(s) and other details: yulissa history of recent travel: Yes ([place]) out of state: Yes out of country: No sexually active: Yes Smoking Status: Never smoker alcohol intake: current alcohol intake frequency: holidays/special occasions only details: not while substance use type: does not use diet: other well-balanced diet: daily or most days caffeine: No eating out: rarely or never during the past year weight has: increased > 10 lbs what type of physical activity do you participate in: walking frequency: 5-6 times per week duration: 60-90 minutes/day janae/jewish: Mandaeism seatbelt use: always do you feel safe at home: Yes additional social history: Leonardo History 2 Elective abortions Hx Para 0 Spontaneous abortions 1 Hx # Term Pregnancies Ectopic pregnancies Hx # Pregnancies Multiple births # of living children 0 Past Pregnancies Del. Date Name GA/Weeks Outcome Route Bth Weight Infant Gen Labor Lgth Anesthesia Del [facility] Provider FOB 05/09/22 5 spontaneous HPI 37 WK OB Details: LACY MACIAS is a 28 year old who presents for routine OB visit. OB Visit STEPHAN Calculator Estimated Delivery Date Method Current WG Current Estimate 03/11/24 LMP (Certain) 37w 1d Expected Delivery Route/Plan Labor Preferences- CB/BF classes: encouraged labor support person: Leonardo labor intervention preferences: [] pain management options preferred: epidural if requested cut cord/dad catch: maybe : yes PP control planned: discussed discussed possible routes of delivery and associated risks: [] special requests: [] Specific Issue/Plans Covid status: [] Flu vaccine: declines Tdap vaccine: given Rhogam: na LARC form signed: yes Problem list reviewed and updated with the most current plan of care details and appropriate orders placed. Relevant counseling for the gestational age provided. Continue routine care and follow up unless otherwise noted in visit notes/problem list details Initial Weight: Not Recorded Date -???-???-???-???-???-???- ???-???-???-???-???-???- EGA Weight BP Urine Prot -???-???-???-???-???-???- ???-???-???-???-???-???- Glucose FHR FuHt Pres Dilation -???-???-???-???-???-???- ???-???-???-???-???-???- Effaced St Visit Note 07/24/23 -???-???-???-???-???-???- ???-???-???-???-???-???- 7w (more content not included)... Normal [facility] Rule out Beta Strep (Grp. B) on 02-15-2024 PAT Group B Beta Streptococcus is not isolated. Normal [facility] Comment on above: Performed By: #### L 400.0001, M100.2200 #### [facility] [address] [facility] [place], [address] Biophysical Prof W/O Non Str eson 02-13-2024 Biophysical Prof W/O Non Stres [facility] Imaging Services [address] [place] [address] Biophysical Prof W/O Non Stres MR#: [id number] Acct: [id number] Name: LACY MACIAS Rep #: [id number] : 1995 F 28 From: Jonathan mathias MD PCP: Care Physician,No Primary Status: REG CLI Study: Biophysical Prof W/O Non Stres Date of Exam: 04/15/23 Exam# [id number] Ordering Dr: Jerome De Anda CNM [id number] STUDY: OBSTETRICAL ULTRASOUND - BIOPHYSICAL PROFILE REASON FOR EXAM: Female, 28 years old well being LMP: June 05, 2023. PRIOR ULTRASOUND: Comparison is made with prior study dated February 02, 2024. TECHNIQUE: Transabdominal TECHNICAL QUALITY: Adequate. FINDINGS: There is a single intrauterine fetus. The fetus is in a cephalic presentation. There is demonstrated cardiac activity with a heart rate of 151 bpm. There is a normal amniotic fluid volume. The largest amniotic fluid pocket measures 4.6 cm x 3.9 cm. The amniotic fluid index (RENAN) is 17.9 cm. The placenta is posterior in location and is not low lying. There are Grade 1 placental changes. Age by LMP: 36 weeks, 1 days. STEPHAN by LMP: March 11, 2024. BIOPHYSICAL PROFILE: Breathing Movements (FBM): 2 Gross Body Movements (GBM): 2 Tone (FT): 2 Amniotic Fluid Volume (AFV): 2 TOTAL SCORE: US/Biophysical Prof W/O Non Stres IMPRESSION: Normal biophysical profile of 10/15. Electronically Signed: Jonathan Fontaine MD at 12:04 EST , CC: JAN De Anda; No Primary Care Physician Cns: Signed Normal [facility] OB Triage Progress Noteon OB Triage Progress Note [facility] Medical Records Department [address] [place] [address] OB Triage Progress Note 02/13/24 1211 MR#: [id number] Acct: [id number] Name: LACY MACIAS Rep #: [id number] : 1995 28 From: Jerome De Anda CNM PCP: Care Physician,No Primary Status:REG CLI Y DOS: Location: [place] [address] Progress Notes Date of Service: 02/13/24 Progress Note: Patient presents for triage evaluation secondary to nonreactive NST in the office at 36 weeks. FHT: 145 Moderate variability reactive no decelerations category I tracing Tobias: no Contractions Assessment and plan: BPP 8/8, Reactive NST, reassuring maternal and status patient discharged to home to follow-up at next appt. See problem list details for additional plan information. Charges/Coding Multi Select Codes Urinary/Genital Urinary/Genital CPT Codes: 97935-31 non-stress test Interp Assessment Plan (1) Non-reactive NST (non-stress test): COMMENT: BPP 8/8, d/c home (2) Nausea and vomiting during : (3) Obesity affecting : QUALIFIERS: Trimester: third trimester Obesity type affecting : unspecified obesity Qualified Code(s): O99.213 - Obesity complicating , third trimester COMMENT: A1C nl -BMI 42 at [facility] plan growth us at 32 and 36 weeks, nsts weekly starting at 34 weeks (4) Supervision of high-risk : QUALIFIERS: Trimester: third trimester Qualified Code(s): O09.93 - Supervision of high risk , unspecified, third trimester COMMENT: PRR, , STEPHAN 03/11/24, Leonardo (5) : QUALIFIERS: Weeks of gestation: 36 weeks Qualified Code(s): Z3A.36 - 36 weeks gestation of COMMENT: discussed genetic carrier testing, declined 02/13/24 1214 Date Jerome De Anda CNM Cosigner Signature (if applicable): Date CC: JAN De Anda; No Primary Care Physician Signed Normal [facility] Residential Plumber Office Visit Reporton 02-13-2024 Residential Plumber Office Visit Report [facility]'s [address], [address] [place] [address] OFFICE VISIT Date of Service: 02/13/24 MR#: [id number] Acct: [id number] Name: LACY MACIAS Rep #: [id number] : 1995 Provider: JAN Prieto ams Age/Sex: 28/F Location: [facility] [place] Status: Signed Intake Vital Signs 12/25/23 09:44 02/02/24 10:26 02/13/24 09:17 02/13/24 09:19 Height 5 ft 7 in 5 ft 7 in 5 ft 7 in 5 ft 7 in Weight: 278 lb BMI 43.5 BP 120/83 H Intake Visit Reasons: 36 WK OB/NST Allergies mike Allergy (Severe, Verified 02/13/24 09:17) Anaphylaxis adhesive Allergy (Intermediate, Verified 02/13/24 09:17) Rash Sulfa (Sulfonamide Antibiotics) Adverse Reaction (Intermediate, Verified 02/13/24 09:17) Diarrhea Last Menstrual Period: 06/05/23 Zika: Zika virus screening: Negative : No Have you fallen in the past year?: No PFSH PFSH Medical History Amenorrhea Chemical Social History adopted: No household members: spouse and family current occupational status: employed current occupation: [employer] current occupational exposures/hazards: Yes (extreme heat) pets and animals: Yes (Avoid litterbox) pets and animals: cat(s) and other details: yulissa history of recent travel: Yes ([place]) out of state: Yes out of country: No sexually active: Yes Smoking Status: Never smoker alcohol intake: current alcohol intake frequency: holidays/special occasions only details: not while substance use type: does not use diet: other well-balanced diet: daily or most days caffeine: No eating out: rarely or never during the past year weight has: increased > 10 lbs what type of physical activity do you participate in: walking frequency: 5-6 times per week duration: 60-90 minutes/day janae/jewish: Mandaeism seatbelt use: always do you feel safe at home: Yes additional social history: Leonardo History 2 Elective abortions Hx Para 0 Spontaneous abortions 1 Hx # Term Pregnancies Ectopic pregnancies Hx # Pregnancies Multiple births # of living children 0 Past Pregnancies Del. Date Name GA/Weeks Outcome Route Bth Weight [facility] 05/09/22 5 spontaneous HPI 36 WK OB/NST Details: LACY MACIAS is a 28 year old who presents for routine OB visit. OB Visit STEPHAN Calculator Estimated Delivery Date Method Current WG Current Estimate 03/11/24 LMP (Certain) 36w 1d Expected Delivery Route/Plan Labor Preferences- CB/BF classes: encouraged labor support person: Leonardo labor intervention preferences: [] pain management options preferred: epidural if requested cut cord/dad catch: maybe : yes PP control planned: discussed discussed possible routes of delivery and associated risks: [] special requests: [] Specific Issue/Plans Covid status: [] Flu vaccine: declines Tdap vaccine: given Rhogam: na LARC form signed: yes Problem list reviewed and updated with the most current plan of care details and appropriate orders placed. Relevant counseling for the gestational age provided. Continue routine care and follow up unless otherwise noted in visit notes/problem list details Initial Weight: Not Recorded Date -???-???-???-???-???-???- ???-???-???-???-???-???- EGA Weight BP Urine Prot -???-???-???-???-???-???- ???-???-???-???-???-???- Glucose FHR FuHt Pres Dilation -???-???-???-???-???-???- ???-???-???-???-???-???- Effaced St Visit Note 07/24/23 -???-???-???-???-???-???- ???-???-???-???-???-???- 7w 0d 268 lb 136/79 -???-???-???-???-???-???- ???-???-???-???-???-???- 140 -???-???-???-???-???-???- ???-???-???-???-???-???- KW- CRL cons with dates. Declines NIPT 08/13/23 -???-???-???-???-???-???- ???-???-???-???-???-???- 9w 6d 265 lb 8 oz Trace -???-???-???-???-???-???- ???-???-???-???-???-???- Negative -???-???-???-???-???-???- ???-???-???-???-???-???- Nurse visit with vaginal twinges-UA neg. Trace ketones. Urine culture pending. Force fluids. Reassure. No bleeding/dischage. 08/21/23 -???-???-???-???-???-???- ???-???-???-???-???-???- 11w 0d 269 lb 126/83 Negative -???-???-???-???-???-???- ???-???-???-???-???-???- Negative 160 -???-???-???-???-???-???- ???-???-???-???-???-???- SM- SM- no vb cramping ordered anatomy scan. 09/22/23 -???-???-???-???-???-???- ???-???-???-???-???-???- 15w 4d 268 lb 4 oz 125/86 Negative -???-???-???-???-???-???- ???-???-???-???-???-???- Negative 160 -???-???-???-???-???-???- ???-???-???-???-???-???- JV- bedside scan performed today for patient reassurance. due (more content not included)... Normal [facility] Screening beta-hemolytic Str eptococcus cultureOrdered By: Jerome De Anda on 02-13-2024 Group B Streptococcus Culture Group B Beta Streptococcus is not isolated. [facility] Urine Cultureon 02-03-2024 URC Mixed Gram Pos Gram Neg Org [place] Count 11,000-25,000 MIXC Mixed contaminants. Submit a new specimen if indicated. Normal [facility] Comment on above: Performed By: #### L 400.0001, M100.2200 #### [facility] [address] [facility] [place], [place], [address] Biophysical Prof W/O Non Str eson 02-02-2024 Biophysical Prof W/O Non Stres [facility] Imaging Services [address] [place], [place] [address] Biophysical Prof W/O Non Stres MR#: [id number] Acct: [id number] Name: LACY MACIAS Rep #: [id number] : 1995 F 28 From: Yulisa mccullough MD PCP: Care Physician,No Primary Status: DEP CLI Study: Biophysical Prof W/O Non Stres Date of Exam: 04/03/23 Exam# [id number] Ordering Dr: Yue Patel DO [id number] HISTORY: variables -- low heart rate. TECHNIQUE: Transabdominal pelvic ultrasound was performed. 26 images. COMPARISON: 01/28/2024. FINDINGS: INTRAUTERINE GESTATION(s): Single. PRESENTATION: Cephalic. PLACENTA: Posterior, grade one. CERVIX: 3.3 cm long. HEART MOTION: 148 bpm. AMNIOTIC FLUID INDEX (RENAN): 20 cm. Largest fluid pocket 5.6 cm. BIOPHYSICAL PROFILE (BPP): 10/15 -- Breathin/2. -- Movement: 2/2. -- Tone: 2/2. --RENAN: 2/2. US/Biophysical Prof W/O Non Stres IMPRESSION: Single living intrauterine with a normal biophysical profile score. Electronically Signed: Yulisa Bazzi MD at 13:16 EST Reading Location ID and State: [employer] / [place] Tel , Service support , CC: Dr. Yue Patel DO; No Primary Care Physician Cns: Signed Normal [facility] OB Triage Progress Noteon OB Triage Progress Note [facility] Medical Records Department [address] [place] [address] OB Triage Progress Note 02/02/24 1205 MR#: [id number] Acct: [id number] Name: LACY MACIAS Rep #: [id number] : 1995 28 From: Jerome De Anda CNM PCP: Care Physician,No Primary Status:REG CLI Y DOS: Location: [place] [address] Progress Notes Date of Service: 02/02/24 Progress Note: Patient presents for triage evaluation secondary to nonreactive NST in office at 34 weeks. FHT: 130 Moderate variability reactive no decelerations category I tracing Tobias: no Contractions Assessment and plan: Bpp 10/15, Reactive NST, reassuring maternal and status patient discharged to home to follow-up in the office. See problem list details for additional plan information. Charges/Coding Multi Select Codes Urinary/Genital Urinary/Genital CPT Codes: 86351-38 non-stress test Interp Assessment Plan (1) Nausea and vomiting during : (2) Obesity affecting : QUALIFIERS: Trimester: third trimester Obesity type affecting : unspecified obesity Qualified Code(s): O99.213 - Obesity complicating , third trimester COMMENT: A1C nl -BMI 42 at [facility] plan growth us at 32 and 36 weeks, nsts weekly starting at 34 weeks (3) Supervision of high-risk : QUALIFIERS: Trimester: third trimester Qualified Code(s): O09.93 - Supervision of high risk , unspecified, third trimester COMMENT: PRR, , STEPHAN 03/11/24, Leonardo (4) : QUALIFIERS: Weeks of gestation: 34 weeks Qualified Code(s): Z3A.34 - 34 weeks gestation of COMMENT: discussed genetic carrier testing, declined (5) Non-reactive NST (non-stress test): COMMENT: BPP 10/15, d/c home 02/02/24 1207 Date Jerome Tamez Signature (if applicable): Date CC: JAN De Anda; No Primary Care Physician Signed Normal [facility] Residential Plumber Office Visit Reporton 02-02-2024 Residential Plumber Office Visit Report [facility] [address], [address] [place] [address] OFFICE VISIT Date of Service: 02/02/24 MR#: [id number] Acct: [id number] Name: LACY MACIAS Rep #: [id number] : 1995 Provider: Dr. Yue Welch DO Age/Sex: 28/F Location: [facility] [place] Status: Signed Intake Vital Signs 12/25/23 09:44 01/28/24 09:43 02/02/24 09:04 Height 5 ft 7 in 5 ft 7 in 5 ft 7 in Weight: 277 lb 6 oz BMI 43.4 BP 123/82 H Intake Visit Reasons: 35 WK NST ONLY Chief Complaint: 35 Week NST only Clinician Oncology Required: No Is patient in pain?: No Allergies mike Allergy (Severe, Verified 02/02/24 10:25) Anaphylaxis adhesive Allergy (Intermediate, Verified 02/02/24 10:25) Rash Sulfa (Sulfonamide Antibiotics) Adverse Reaction (Intermediate, Verified 02/02/24 10:25) Diarrhea Medications ???Medication ???Instructions ???Recorded ???Confirmed ???Type multivitamin no.47-iron fum 27 1 cap PO DAILY 07/08/23 02/02/24 History mg-folate no.1 1 mg-dha 300 mg capsule (PNV-DHA) famotidine 20 mg tablet (Pepcid) 20 mg PO DAILY #30 tabs 12/25/23 02/02/24 Rx Last Menstrual Period: 06/05/23 Zika: Zika virus screening: Negative : No PFSH PFSH Medical History Amenorrhea Chemical Social History adopted: No household members: spouse and family current occupational status: employed current occupation: [employer] current occupational exposures/hazards: Yes (extreme heat) pets and animals: Yes (Avoid litterbox) pets and animals: cat(s) and other details: yulissa history of recent travel: Yes ([place]) out of state: Yes out of country: No sexually active: Yes Smoking Status: Never smoker alcohol intake: current alcohol intake frequency: holidays/special occasions only details: not while substance use type: does not use diet: other well-balanced diet: daily or most days caffeine: No eating out: rarely or never during the past year weight has: increased > 10 lbs what type of physical activity do you participate in: walking frequency: 5-6 times per week duration: 60-90 minutes/day janae/jewish: Mandaeism seatbelt use: always do you feel safe at home: Yes additional social history: Leonardo History 2 Elective abortions Hx Para 0 Spontaneous abortions 1 Hx # Term Pregnancies Ectopic pregnancies Hx # Pregnancies Multiple births # of living children 0 Past Pregnancies Del. Date Name GA/Weeks Outcome Route Bth Weight Gen Labor Lgth Anesthesia Del [facility] Provider FOB 05/09/22 5 spontaneous HPI 35 WK NST ONLY Details: LACY MACIAS is a 28 year old who presents for routine OB visit. OB Visit STEPHAN Calculator Estimated Delivery Date Method Current WG Current Estimate 03/11/24 LMP (Certain) 34w 4d Expected Delivery Route/Plan Labor Preferences- CB/BF classes: encouraged labor support person: Leonardo labor intervention preferences: [] pain management options preferred: epidural if requested cut cord/dad catch: maybe : yes PP control planned: discussed discussed possible routes of delivery and associated risks: [] special requests: [] Specific Issue/Plans Covid status: [] Flu vaccine: declines Tdap vaccine: given Rhogam: na LARC form signed: yes Problem list reviewed and updated with the most current plan of care details and appropriate orders placed. Relevant counseling for the gestational age provided. Continue routine care and follow up unless otherwise noted in visit notes/problem list details Initial Weight: Not Recorded Date -???-???-???-???-???-???- ???-???-???-???-???-???- EGA Weight BP Urine Prot -???-???-???-???-???-???- ???-???-???-???-???-???- Glucose FHR FuHt Pres Dilation -???-???-???-???-???-???- ???-???-???-???-???-???- Effaced St Visit Note 07/24/23 -???-???-???-???-???-???- ???-???-???-???-???-???- 7w 0d 268 lb 136/79 -???-???-???-???-???-???- ???-???-???-???-???-???- 140 -???-???-???-???-???-???- ???-???-???-???-???-???- KW- CRL cons with dates. Declines NIPT 08/13/23 -???-???-???-???-???-???- ???-???-???-???-???-???- 9w 6d 265 lb 8 oz Trace -???-???-???-???-???-???- ???-???-???-???-???-???- Negative -???-???-???-???-???-???- ???-???-???-???-???-???- Nurse visit with vaginal twinges-UA neg. Trace ketones. Urine culture pending. Force fluids. Reassure. No bleeding/dischage. 08/21/23 -???-???-???-???-???-???- ???-???-???-???-???-???- 11w 0d 269 lb 126/83 Negative -???-???-???-???-???-???- ???-???-???-???-???-???- Negative 160 -???-???-???-???-???-?? (more content not included)... Normal [facility] Urinalysis, Completeon 02-01 BACTERIA 3+ /hpf Normal None Seen [facility] Comment on above: Order Comment: CLEAN CATCH Performed By: #### L 400.0001, M100.2200 #### [facility] [place], [address] EPI,SQUAMOUS 0-5 SEEN Normal 5-10 [facility] Comment on above: Order Comment: CLEAN CATCH Performed By: #### L 400.0001, M100.2200 #### [facility] [address] [place], [address] WBC 5-10 SEEN Normal 0-5 [facility] Comment on above: Order Comment: CLEAN CATCH Performed By: #### L 400.0001, M100.2200 #### [facility] [address] [place], [address] Mucus Ql (Urine sed) 0 SEEN Normal [facility] Comment on above: Order Comment: CLEAN CATCH Performed By: #### L 400.0001, M100.2200 #### [facility] [address] [place], [address] RBC 0 SEEN Normal 0-5 [facility] Comment on above: Order Comment: CLEAN CATCH Performed By: #### L 400.0001, M100.2200 #### [facility] [address] [place], [address] Biophysical Prof W/O Non Str eson 01-28-2024 Biophysical Prof W/O Non Stres [facility] Imaging Services [address] [place] [address] Biophysical Prof W/O Non Stres MR#: [id number] Acct: [id number] Name: LACY MACIAS Rep #: [id number] : 1995 F 28 From: Jonathan mathias MD PCP: Care Physician,No Primary Status: REG CLI Study: Biophysical Prof W/O Non Stres Date of Exam: 03/29/23 Exam# [id number] Ordering Dr: Mely Castillo [id number] STUDY: OBSTETRICAL ULTRASOUND - BIOPHYSICAL PROFILE REASON FOR EXAM: Female, 28 years old decels -- near syncope with NST LMP: June 05, 2023. PRIOR ULTRASOUND: None. TECHNIQUE: Transabdominal TECHNICAL QUALITY: Adequate. FINDINGS: There is a single intrauterine fetus. The fetus is in a breech presentation. There is demonstrated cardiac activity with a heart rate of 143 bpm. There is a normal amniotic fluid volume. The largest amniotic fluid pocket measures 5.7 cm. The amniotic fluid index (RENAN) is 16.9 cm. The placenta is posterior in location and is not low lying. There are Grade 1 placental changes. Age by LMP: 33 weeks, 6 days. STEPHAN by LMP: March 30, 2024. BIOPHYSICAL PROFILE: Breathing Movements (FBM): 2 Gross Body Movements (GBM): 2 Tone (FT): 2 Amniotic Fluid Volume (AFV): 2 TOTAL SCORE: 8 / 8 US/Biophysical Prof W/O Non Stres IMPRESSION: Normal biophysical profile of 8/8. Electronically Signed: Jonathan Fontaine MD at 11:44 EST Reading Location ID and State: [address] [place] [address] , Service support , CC: Dr. Mely Castillo MD; No Primary Care Physician Cns: Signed Normal [facility] OB Triage Progress Noteon OB Triage Progress Note [facility] Medical Records Department [address] [place] [address] OB Triage Progress Note 01/28/24 1252 MR#: [id number] Acct: [id number] Name: LACY MACIAS Rep #: [id number] : 1995 28 From: Mely Castillo MD PCP: Care Physician,No Primary Status:DEP CLI Y DOS: Location: [facility] Progress Notes Date of Service: 01/28/24 Progress Note: tachycardia at 34 weeks seen in office for NST and then cam to l and d for BPP. 10/15. Assessment Plan (1) tachycardia: COMMENT: had bpp in triage (2) : QUALIFIERS: Weeks of gestation: 33 weeks Qualified Code(s): Z3A.33 - 33 weeks gestation of COMMENT: discussed genetic carrier testing, declined (3) Supervision of high-risk : QUALIFIERS: Trimester: third trimester Qualified Code(s): O09.93 - Supervision of high risk , unspecified, third trimester COMMENT: PRR, , STEPHAN 03/11/24, Leonardo (4) Obesity affecting : QUALIFIERS: Trimester: third trimester Obesity type affecting : unspecified obesity Qualified Code(s): O99.213 - Obesity complicating , third trimester COMMENT: A1C nl -BMI 42 at NOB plan growth us at 32 and 36 weeks, nsts weekly starting at 34 weeks (5) Nausea and vomiting during : 02/02/24 0740 Date Mely Castillo MD Cosigner Signature (if applicable): Date CC: Dr. Mely Castillo MD; No Primary Care Physician Signed Normal [facility] Residential Plumber Office Visit Reporton 01-28-2024 Residential Plumber Office Visit Report [facility] [address], [address] [place] [address] OFFICE VISIT Date of Service: 01/28/24 MR#: [id number] Acct: [id number] Name: LACY MACIAS Rep #: [id number] : 1995 Provider: ANJUM devlin Age/Sex: 28/F Location: [facility] Status: Signed Intake Vital Signs 12/25/23 09:44 01/22/24 09:36 01/28/24 08:36 01/28/24 08:57 01/28/24 08:58 Height 5 ft 7 in 5 ft 7 in 5 ft 7 in 5 ft 7 in Weight: 247 lb 8 oz BMI 38.7 BP 125/84 H 97/60 Intake Visit Reasons: 34 WK NST ONLY Clinician Oncology Required: No Is patient in pain?: No Allergies mike Allergy (Severe, Verified 02/02/24 10:25) Anaphylaxis adhesive Allergy (Intermediate, Verified 02/02/24 10:25) Rash Sulfa (Sulfonamide Antibiotics) Adverse Reaction (Intermediate, Verified 02/02/24 10:25) Diarrhea Medications ???Medication ???Instructions ???Recorded ???Confirmed ???Type multivitamin no.47-iron fum 27 1 cap PO DAILY 07/08/23 02/02/24 History mg-folate no.1 1 mg-dha 300 mg capsule (PNV-DHA) famotidine 20 mg tablet (Pepcid) 20 mg PO DAILY #30 tabs 12/25/23 02/02/24 Rx Last Menstrual Period: 06/05/23 Zika: Zika virus screening: Negative : Yes Have you fallen in the past year?: No PFSH PFSH Medical History Amenorrhea Chemical Social History adopted: No household members: spouse and family current occupational status: employed current occupation: [employer] current occupational exposures/hazards: Yes (extreme heat) pets and animals: Yes (Avoid litterbox) pets and animals: cat(s) and other details: yulissa history of recent travel: Yes ([place]) out of state: Yes out of country: No sexually active: Yes Smoking Status: Never smoker alcohol intake: current alcohol intake frequency: holidays/special occasions only details: not while substance use type: does not use diet: other well-balanced diet: daily or most days caffeine: No eating out: rarely or never during the past year weight has: increased > 10 lbs what type of physical activity do you participate in: walking frequency: 5-6 times per week duration: 60-90 minutes/day janae/jewish: Mandaeism seatbelt use: always do you feel safe at home: Yes additional social history: Leonardo History 2 Elective abortions Hx Para 0 Spontaneous abortions 1 Hx # Term Pregnancies Ectopic pregnancies Hx # Pregnancies Multiple births # of living children 0 Past Pregnancies Del. Date Name GA/Weeks Outcome Route Bth Weight Gen Labor Lgth Anesthesia Del Locatn Provider FOB 05/09/22 5 spontaneous HPI 34 WK NST ONLY Details: LACY MACIAS is a 28 year old who presents for routine OB visit. OB Visit STEPHAN Calculator Estimated Delivery Date Method Current WG Current Estimate 03/11/24 LMP (Certain) 34w 6d Expected Delivery Route/Plan Labor Preferences- CB/BF classes: encouraged labor support person: Leonardo labor intervention preferences: [] pain management options preferred: epidural if requested cut cord/dad catch: maybe : yes PP control planned: discussed discussed possible routes of delivery and associated risks: [] special requests: [] Specific Issue/Plans Covid status: [] Flu vaccine: declines Tdap vaccine: given Rhogam: na LARC form signed: yes Problem list reviewed and updated with the most current plan of care details and appropriate orders placed. Relevant counseling for the gestational age provided. Continue routine care and follow up unless otherwise noted in visit notes/problem list details Initial Weight: Not Recorded Date -???-???-???-???-???-???- ???-???-???-???-???-???- EGA Weight BP Urine Prot -???-???-???-???-???-???- ???-???-???-???-???-???- Glucose FHR FuHt Pres Dilation -???-???-???-???-???-???- ???-???-???-???-???-???- Effaced St Visit Note 07/24/23 -???-???-???-???-???-???- ???-???-???-???-???-???- 7w 0d 268 lb 136/79 -???-???-???-???-???-???- ???-???-???-???-???-???- 140 -???-???-???-???-???-???- ???-???-???-???-???-???- KW- CRL cons with dates. Declines NIPT 08/13/23 -???-???-???-???-???-???- ???-???-???-???-???-???- 9w 6d 265 lb 8 oz Trace -???-???-???-???-???-???- ???-???-???-???-???-???- Negative -???-???-???-???-???-???- ???-???-???-???-???-???- Nurse visit with vaginal twinges-UA neg. Trace ketones. Urine culture pending. Force fluids. Reassure. No bleeding/dischage. 08/21/23 -???-???-???-???-???-???- ???-???-???-???-???-???- 11w 0d 269 lb 126/83 Negative -???-???-???-???-???-???- ???-???-???-???-??? (more content not included)... Normal [facility] Residential Plumber Office Visit Reporton 01-22-2024 Residential Plumber Office Visit Report [facility] [address], [address] [place] [address] OFFICE VISIT Date of Service: 01/22/24 MR#: [id number] Acct: [id number] Name: COLLEEN,LACY ACOSTAYunior Rep #: [id number] : 1995 Provider: ANJUM devlin Age/Sex: 28/F Location: [facility] Status: Signed Intake Vital Signs 12/25/23 09:44 01/08/24 08:36 01/22/24 09:36 Height 5 ft 7 in 5 ft 7 in 5 ft 7 in Weight: 277 lb BMI 43.4 BP 126/82 H Intake Visit Reasons: 33 WK OB Chief Complaint: 33 Week OB Clinician Oncology Required: No Is patient in pain?: No Allergies mike Allergy (Severe, Verified 01/22/24 09:36) Anaphylaxis adhesive Allergy (Intermediate, Verified 01/22/24 09:36) Rash Sulfa (Sulfonamide Antibiotics) Adverse Reaction (Intermediate, Verified 01/22/24 09:36) Diarrhea Medications ???Medication ???Instructions ???Recorded ???Confirmed ???Type multivitamin no.47-iron fum 27 1 cap PO DAILY 07/08/23 01/22/24 History mg-folate no.1 1 mg-dha 300 mg capsule (PNV-DHA) famotidine 20 mg tablet (Pepcid) 20 mg PO DAILY #30 tabs 12/25/23 01/22/24 Rx Last Menstrual Period: 06/05/23 Zika: Zika virus screening: Negative : Yes PFSH PFSH Medical History Amenorrhea Chemical Social History adopted: No household members: spouse and family current occupational status: employed current occupation: [employer] current occupational exposures/hazards: Yes (extreme heat) pets and animals: Yes (Avoid litterbox) pets and animals: cat(s) and other details: yulissa history of recent travel: Yes ([place]) out of state: Yes out of country: No sexually active: Yes Smoking Status: Never smoker alcohol intake: current alcohol intake frequency: holidays/special occasions only details: not while substance use type: does not use diet: other well-balanced diet: daily or most days caffeine: No eating out: rarely or never during the past year weight has: increased > 10 lbs what type of physical activity do you participate in: walking frequency: 5-6 times per week duration: 60-90 minutes/day janae/jewish: Mandaeism seatbelt use: always do you feel safe at home: Yes additional social history: Leonardo History 2 Elective abortions Hx Para 0 Spontaneous abortions 1 Hx # Term Pregnancies Ectopic pregnancies Hx # Pregnancies Multiple births # of living children 0 Past Pregnancies Del. Date Name GA/Weeks Outcome Route Bth Weight Gen Labor Lgth Anesthesia Del Locatn Provider FOB 05/09/22 5 spontaneous HPI 33 WK OB Details: LACY MACIAS is a 28 year old who presents for routine OB visit. OB Visit STEPHAN Calculator Estimated Delivery Date Method Current WG Current Estimate 03/11/24 LMP (Certain) 33w 0d Expected Delivery Route/Plan Labor Preferences- CB/BF classes: encouraged labor support person: Leonardo labor intervention preferences: [] pain management options preferred: epidural if requested cut cord/dad catch: maybe : yes PP control planned: discussed discussed possible routes of delivery and associated risks: [] special requests: [] Specific Issue/Plans Covid status: [] Flu vaccine: declines Tdap vaccine: given Rhogam: na LARC form signed: yes Problem list reviewed and updated with the most current plan of care details and appropriate orders placed. Relevant counseling for the gestational age provided. Continue routine care and follow up unless otherwise noted in visit notes/problem list details Initial Weight: Not Recorded Date -???-???-???-???-???-???- ???-???-???-???-???-???- EGA Weight BP Urine Prot -???-???-???-???-???-???- ???-???-???-???-???-???- Glucose FHR FuHt Pres Dilation -???-???-???-???-???-???- ???-???-???-???-???-???- Effaced St Visit Note 07/24/23 -???-???-???-???-???-???- ???-???-???-???-???-???- 7w 0d 268 lb 136/79 -???-???-???-???-???-???- ???-???-???-???-???-???- 140 -???-???-???-???-???-???- ???-???-???-???-???-???- KW- CRL cons with dates. Declines NIPT 08/13/23 -???-???-???-???-???-???- ???-???-???-???-???-???- 9w 6d 265 lb 8 oz Trace -???-???-???-???-???-???- ???-???-???-???-???-???- Negative -???-???-???-???-???-???- ???-???-???-???-???-???- Nurse visit with vaginal twinges-UA neg. Trace ketones. Urine culture pending. Force fluids. Reassure. No bleeding/dischage. 08/21/23 -???-???-???-???-???-???- ???-???-???-???-???-???- 11w 0d 269 lb 126/83 Negative -???-???-???-???-???-???- ???-???-???-???-???-???- Negative 160 -???-???-???-???-???-???- ???-???-???-???-???-???- SM (more content not included)... Normal [facility] Serum or plasma choriogonado tropin detectionOrdered By: Jerome De Anda on 07-02-2023 HCG ( test) Ql 101 mIU/mL <4 [facility] Comment on above: hCG levels with Gest ational AgeGestational Age hCG mIU/mL (IU/L)0.2 - 1 week 5 - 501-2 weeks 50 - 5002-3 weeks 100 - 56058-3 weeks 500 - 372922-4 weeks 1000 - 008145-6 weeks 34414 - 100,0006-8 weeks 86054 - 200,0002-3 months 08168 - 100,000 .Auto Diffon 06-30-2023 Basophil, Absolute 0.1 10 3/mcL Normal 0.0-0.2 [facility] ([place]) Comment on above: Performed By: #### G FR, ANEU, ADIFF, CBC, HCGQ, MDW, BMP #### [address] [address] Basophils/100 WBC (Bld) 0.7 % Normal 0.0-2.5 [facility] ([place]) Comment on above: Performed By: #### G FR, ANEU, ADIFF, CBC, HCGQ, MDW, BMP #### [address] [address] Eosinophil, Absolute 0.1 10 3/mcL Normal 0.0-0.4 [facility] ([place] Comment on above: Performed By: #### G FR, ANEU, ADIFF, CBC, HCGQ, MDW, BMP #### [address] [address] Eosinophils/100 WBC (Bld) 0.5 % Normal 0.0-7.0 [facility] ([place]) Comment on above: Performed By: #### G FR, ANEU, ADIFF, CBC, HCGQ, MDW, BMP #### [address] [address] Lymphocyte, Absolute 2.5 10 3/mcL Normal 0.8-3.9 [facility] ([place] Comment on above: Performed By: #### G FR, ANEU, ADIFF, CBC, HCGQ, MDW, BMP #### [address] [address] Lymphocytes/100 WBC (Bld) 22.4 % Normal 10.0-50.0 [facility] ([place]) Comment on above: Performed By: #### G FR, ANEU, ADIFF, CBC, HCGQ, MDW, BMP #### [address] [address] Monocyte, Absolute 0.7 10 3/mcL Normal 0.2-1.0 [facility] ([place]) Comment on above: Performed By: #### G FR, ANEU, ADIFF, CBC, HCGQ, MDW, BMP #### [address] [address] Monocytes/100 WBC (Bld) 6.6 % Normal 1.7-13.0 [facility] ([place]) Comment on above: Performed By: #### G FR, ANEU, ADIFF, CBC, HCGQ, MDW, BMP #### [address] [address] Neutrophils/100 WBC (Bld) 69.8 % Normal 37.0-80.0 [facility] ([place]) Comment on above: Performed By: #### G FR, ANEU, ADIFF, CBC, HCGQ, MDW, BMP #### [address] [address] .GFRon 06-30-2023 GFR 114 ml/min/1.73sqm Normal [facility] ([place]) Comment on above: Result Comment: GFR Population [...] ANEU, ADIFF, CBC, HCGQ, MDW, BMP #### [address] [address] GFR Non- 94 ml/min/1.73sqm Normal [facility] ([place]) Comment on above: Result Comment: GFR Population [...] ANEU, ADIFF, CBC, HCGQ, MDW, BMP #### [address] [address] .MDWon 06-30-2023 Monocyte Distribution Width 19.44 Normal 0.00-20.00 [facility] ([place]) Comment on above: Result Comment: For ED adult patients suspected of sepsis, MDW<=20.0 does not rule out sepsis or risk of sepsis Performed By: #### G FR, ANEU, ADIFF, CBC, HCGQ, MDW, BMP #### [address] [address] .NEUABSon 06-30-2023 Neutrophil, Absolute 7.9 10 3/mcL High 2.9-6.2 [facility] ([place] Comment on above: Performed By: #### G FR, ANEU, ADIFF, CBC, HCGQ, MDW, BMP #### [address] [address] BMPon 06-30-2023 BUN/Creatinine Ratio 26 ratio Normal 7-27 [facility] ([place]) Comment on above: Performed By: #### G FR, ANEU, ADIFF, CBC, HCGQ, MDW, BMP #### [address] [address] Calcium [Mass/Vol] 9.0 mg/dL Normal 8.4-10.2 [facility] ([place]) Comment on above: Performed By: #### G FR, ANEU, ADIFF, CBC, HCGQ, MDW, BMP #### [address] [address] Chloride [Moles/Vol] 104 mmol/L Normal 98-107 [facility] ([place]) Comment on above: Performed By: #### G FR, ANEU, ADIFF, CBC, HCGQ, MDW, BMP #### [address] [address] CO2 [Moles/Vol] 23 mmol/L Normal 22-29 [facility] ([place]) Comment on above: Performed By: #### G FR, ANEU, ADIFF, CBC, HCGQ, MDW, BMP #### [address] [address] Creatinine [Mass/Vol] 0.74 mg/dL Normal 0.55-1.02 [facility] ([place]) Comment on above: Performed By: #### G FR, ANEU, ADIFF, CBC, HCGQ, MDW, BMP #### [address] [address] Electrolyte Balance 12.0 mEq/L Normal 4.0-15.0 [facility] ([place]) Comment on above: Performed By: #### G FR, ANEU, ADIFF, CBC, HCGQ, MDW, BMP #### [address] [address] Glucose [Mass/Vol] 97 mg/dL Normal 70-105 [facility] ([place]) Comment on above: Performed By: #### G FR, ANEU, ADIFF, CBC, HCGQ, MDW, BMP #### [address] [address] Potassium [Moles/Vol] 3.6 mmol/L Normal 3.5-5.1 [facility] ([place]) Comment on above: Performed By: #### G FR, ANEU, ADIFF, CBC, HCGQ, MDW, BMP #### [address] [address] Sodium [Moles/Vol] 139 mmol/L Normal 136-145 [facility] ([place]) Comment on above: Performed By: #### G FR, ANEU, ADIFF, CBC, HCGQ, MDW, BMP #### [address] [address] Urea nitrogen [Mass/Vol] 19 mg/dL High 7-18 [facility] ([place]) Comment on above: Performed By: #### G FR, ANEU, ADIFF, CBC, HCGQ, MDW, BMP #### [address] [address] CBCon 06-30-2023 Erythrocyte distribution width (RBC) [Ratio] 13.6 % Normal 11.5-14.5 [facility] ([place]) Comment on above: Performed By: #### G FR, ANEU, ADIFF, CBC, HCGQ, MDW, BMP #### [address] [address] Hematocrit (Bld) [Volume fraction] 38.0 % Normal 37.0-47.0 [facility] ([place]) Comment on above: Performed By: #### G FR, ANEU, ADIFF, CBC, HCGQ, MDW, BMP #### [address] [address] Hgb 12.8 G/dL Normal 12.0-16.0 [facility] ([place]) Comment on above: Performed By: #### G FR, ANEU, ADIFF, CBC, HCGQ, MDW, BMP #### [address] [address] MCH (RBC) [Entitic mass] 27.5 pg Normal 27.0-31.2 [facility] ([place]) Comment on above: Performed By: #### G FR, ANEU, ADIFF, CBC, HCGQ, MDW, BMP #### [address] [address] MCHC 33.7 G/dL Normal 33.0-37.0 [facility] ([place]) Comment on above: Performed By: #### G FR, ANEU, ADIFF, CBC, HCGQ, MDW, BMP #### [address] [address] MCV (RBC) [Entitic vol] 81.5 fL Normal 80.0-94.0 [facility] ([place]) Comment on above: Performed By: #### G FR, ANEU, ADIFF, CBC, HCGQ, MDW, BMP #### [address] [address] Platelet 356 10 3/mcL Normal 130-400 [facility] ([place]) Comment on above: Performed By: #### G FR, ANEU, ADIFF, CBC, HCGQ, MDW, BMP #### [address] [address] Platelet mean volume (Bld) [Entitic vol] 7.6 fL Normal 7.4-10.4 [facility] ([place]) Comment on above: Performed By: #### G FR, ANEU, ADIFF, CBC, HCGQ, MDW, BMP #### [address] [address] RBC 4.66 10 6/mcL Normal 4.20-5.40 [facility] ([place]) Comment on above: Performed By: #### G FR, ANEU, ADIFF, CBC, HCGQ, MDW, BMP #### [address] [address] WBC 11.3 10 3/mcL High 4.6-10.8 [facility] ([place]) Comment on above: Performed By: #### G FR, ANEU, ADIFF, CBC, HCGQ, MDW, BMP #### [address] [address] HCGQon 06-30-2023 hCG, quantitative 43.2 mIU/mL Normal [facility] ([place]) Comment on above: Result Comment: HCG Levels [...] ADIFF, CBC, HCGQ, MDW, BMP #### [place] [address] LABORATORYOrdered By: Champ Noonan on 06-30-2023 Appearance [...] Spec Grav 1.025 (06/30/23 7:34 PM) Normal 1.015-1.025 AO Auto Urine SS UA Specimen Type [...] Chloride [Moles/Vol] 104 mmol/L Normal 98 - 10 7 mmol/L AO ADM SS CO2 [Moles/Vol] 23 mmol/L Normal 22 - 29 mmol/L AO ADM SS Creatinine [Mass/Vol] 0.74 mg/dL Normal 0.55 - 1.02 mg/dL AO ADM SS Electrolyte Balance 12.0 mEq/L Normal 4.0 - 15 .0 mEq/L AO ADM SS Eosinophil, Absolute 0.1 103/mcL Normal 0.0 - 0 .4 10^3/mcL AO Workflow SS Eosinophils/100 WBC (Bld) [...] Lymphocyte, Absolute 2.5 103/mcL Normal 0.8 - 3 .9 10^3/mcL AO Workflow SS Lymphocytes/100 WBC (Bld) [...] Neutrophil, Absolute 7.9 103/mcL High 2.9 - 6 .2 10^3/mcL AO Workflow SS Neutrophils/100 WBC (Bld) [...] (Bld) [#/Vol] 4.66 106/mcL Normal 4.20 - 5.4 0 10^6/mcL AO Workflow SS Sodium [Moles/Vol] 139 mmol/L Normal 136 - 145 mmol/L AO ADM SS Urea nitrogen [Mass/Vol] 19 mg/dL High 7 - 18 mg/dL AO ADM SS Urea nitrogen/Creatinine [Mass ratio] 26 ratio Normal 7 - 27 ratio AO ADM SS WBC (Bld) [#/Vol] 11.3 103/mcL High 4.6 - 10.8 10^3/mcL AO Workflow SS Serum or plasma choriogonado tropin detectionOrdered By: Jerome De Anda on 06-30-2023 HCG ( test) Ql 36 mIU/mL <4 [facility] Comment on above: hCG levels with Gest ational AgeGestational Age hCG mIU/mL (IU/L)0.2 - 1 week 5 - 501-2 weeks 50 - 5002-3 weeks 100 - 93325-2 weeks 500 - 857015-8 weeks 1000 - 920972-8 weeks 57104 - 100,0006-8 weeks 90986 - 200,0002-3 months 75162 - 100,000 UAon 06-30-2023 Color (U) Yellow Normal [facility] ([place]) Comment on above: Performed By: #### U A #### [address] [address] Glucose (U) [Mass/Vol] Negative Normal Negative [facility] ([place]) Comment on above: Performed By: #### U A #### [address] [address] Ketones Ql (U) 80 mg/dL Abnormal Negative [facility] ([place]) Comment on above: Performed By: #### U A #### [address] [address] UA Appear Clear Normal Clear [facility] ([place]) Comment on above: Performed By: #### U A #### [address] [address] UA Blood Negative Normal Negative [facility] ([place]) Comment on above: Performed By: #### U A #### [address] [address] UA Leuk Est Negative Normal Negative [facility] ([place]) Comment on above: Performed By: #### U A #### [address] [address] UA Nitrite Negative Normal Negative [facility] ([place]) Comment on above: Performed By: #### U A #### [address] [address] UA pH 6.0 Normal 5.0 - 8.0 [facility] ([place]) Comment on above: Performed By: #### U A #### [address] [address] UA Protein Negative Normal Negative [facility] ([place]) Comment on above: Performed By: #### U A #### [address] [address] UA Spec Grav 1.025 Normal 1.015-1.025 [facility] ([place]) Comment on above: Performed By: #### U A #### [address] [address] UA Specimen Type Clean Catch Normal [facility] ([place]) Comment on above: Performed By: #### U A #### [address] [address] UA Urobilinogen 0.2 E.U./dL Normal 0.2-1.0 [facility] ([place]) Comment on above: Performed By: #### U A #### [address] [address] Urobilinogen (U) [Mass/Vol] Negative Normal Negative [facility] ([place]) Comment on above: Performed By: #### U A #### [address] [address] ED Nursing Noteon 10-29-2022 ED Nursing Note Pt discharged to [facility] by CIRO Vera. No IV in place. Brigette Taylor RN 10/29/222104 [facility] ED Nursing Note Jody HINGING MACHINE OPERATOR bedside. Devendra Donovan RN 10/29/222055 [facility] ED Nursing Note Pt A+Ox4. Pt has graham n and equal chest rise. Pt denies any needs at this time. Devendra Donovan RN 10/29/222055 [facility] ED Nursing Note Report given to Yordy cedeño RN, ED nurse document imaging manager. Mabel Malloy RN 10/29/22 1705 [facility] ED Nursing Note Pt had urine drug sc reen done per company policy s/p work injury. Mabel Malloy RN 10/29/22 1649 [facility] ED Nursing Note Bed: 15 Expected date: 10/29/22 Expected time: 7:09 PM Means of arrival: Comments: triage Salma Galvez RN 10/29/22 1914 [facility] ED Provider Noteon ED Provider Note EMERGENCY DEPARTMENT ENCOUNTER Pt Name: Lacy Cardenas Birthdate 1995 Date of evaluation: 10/29/2022 ED Provider: Emily Silva MD CHIEF COMPLAINT Chief Complaint Patient presents with Eye Problem Pt states was at work at [employer] and had safety eyewear in place. Possible foreign body or dust in eye at approx 1505 today. HISTORY OF PRESENT ILLNESS (Location/Symptom, Timing/Onset, Context/Setting, Quality, Duration, Modifying Factors, Severity) Note limiting factors. HPI Lacy Cardenas is a 27 y.o. female who [...] plan will be to transfer her to [facility] emergency department in order to be evaluated by the national investigative producer there. Patient is agreeable to this. Will be transferred via private vehicle that a coworker will drive. I Emily Silva MD am the asset protection specialist of record. FINAL IMPRESSION 1. Foreign body of right eye, initial encounter DISPOSITION Transfer To [facility] Ed 10/29/2022 03:51:50 PM PATIENT REFERRED TO: No follow-up provider specified. DISCHARGE MEDICATIONS: New Prescriptions No medications on file (Comment: Please note this report has been produced using speech recognition software and may contain errors related to that system including errors in grammar, punctuation, and spelling, as well as words (more content not included)... Normal [facility] ED Provider Note Emergency Department Encounter [facility] EMERGENCY DEPT Patient: Lacy Cardenas : 1995 Date of Evaluation: 10/29/2022 [...] of this encounter. Brief HPI: In brief, Lacy Cardenas is a 27 y.o. female that [...] medial right eyelid, she was transferred from [facility] for an ophthalmology consult. Focused Physical exam: [...] [employer] Hilary Alfred MD 10/29/22 1842 Normal [facility] ED Provider Note EMERGENCY DEPARTMENT ENCOUNTER Pt Name: Lacy Cardenas Birthdate 1995 Date of evaluation: 10/29/2022 ED Provider: Jody Fagan APRN - [facility]care was supervised by Dr. Alfred who independently examined and evaluated the patient. Please see their attestation note for further details. CHIEF COMPLAINT Chief Complaint Patient presents with Eye Problem Pt states was at work at [employer] and had safety eyewear in place. Possible foreign body or dust in eye at approx 1505 today. HISTORY OF PRESENT ILLNESS (Location/Symptom, Timing/Onset, Context/Setting, Quality, Duration, Modifying Factors, Severity) Note limiting factors. I wore appropriate PPE for the entirety of this encounter. HPI Lacy Cardenas is a 27 y.o. who presents to the emergency department with complaints of having a foreign body in her right eye and sent from another [facility] emergency department. Nursing Notes were reviewed. [...] (2 drops Both Eyes Given by Other 10/29/22 1530) fluorescein 1 MG ophthalmic strip 1 strip (1 strip Both Eyes Given by Other 10/29/22 1530) Lacy Anton, a 27-year-old female presented to the [facility] emergency department and then was told to come here to [facility] to see ophthalmology due to having a foreign body in her eye. While she was in the waiting room waiting for ophthalmology the foreign body came out of her eye. Dr. Rinaldi from ophthalmology did an eye exam and could not find anything left in her eye. He instructed her to purchase [id number] refresh eyedrops if her eye continued to [...] DISPOSITION Discharge to home PATIENT REFERRED TO: [address] [address] DISCHARGE MEDICATIONS: New Prescriptions No medications on file (Comment: Please note this report has been produced using speech recognition software and may contain errors related to that system including errors in grammar, punctuation, and spelling, as well as words and phrases that may be inappropriate. If there are any questions or concerns plea (more content not included)... Normal [facility] Progress Noteon 10-29-2022 Progress Note ED ophthalmology con sult note Present illness: 27 yo female that [...] buy a bottle of Refresh Tears at [facility] and instill into right eye (OD) if she experiences any further irritation in right eye. Normal [facility] CNOVon 05-08-2022 CNOV Office Visit ([facility] ) ----- LACY CARDENAS ([id number]) 1995 F Date Time Provider Department 05/08/22 8:55 AM INDIRA RAPP (ANETA) [facility] During your visit today, we recorded the following information about you: Temperature Pulse Respiration Blood pressure 99 degrees 64/minute 22/minute 137/81 Weight Last Period 126.1 kg 03/18/22 Indira Rapp PA-C, ANETA 05/08/2022 9:56 AM Signed Lacy Mojica Lokesh is an 26 year old female presenting [...] mood and affect is appropriate Pelvic deferred Lacy was seen today for vaginal problem. Diagnoses and all orders for this visit: , unspecified gestational age Pelvic pain Vaginal bleeding I do feel based on the patient's history and physical exam further evaluation is warranted in the emergency department. Therefore patient was sent to [facility] emergency department for further evaluation and management. Indira Rapp PA-C, ANETA Return for To ER for evaluation and management. Referring Provider: SELF [[id number]] Allergies As of Date: 05/08/2022 Noted Allergy Reaction SULFA (SULFONAMIDE ANTIBIOTICS) 10/10/2020 6 - Diarrhea ADHESIVE TAPE-SILICONES 05/08/2022 2 - Rash MIKE 05/08/2022 10 - Anaphylaxis Date Reviewed: 05/08/2022 Reviewed by: Indira Salazar (Aneta) ANETA Rapp - Fully Assessed [...] (None) Lev (more content not included)... Normal [facility] LABORATORYOrdered By: Ruth Ponce on [...] DIPSTICKon 12-29-2020 POC APPEARANCE CLEAR Normal CLEAR [facility] Comment on above: Order Comment: Campu s: MAS POC BILIRUBIN Negative Normal NEGATIVE [facility] Comment on above: Order Comment: Campu s: MAS POC BLOOD Negative Normal NEGATIVE [facility] Comment on above: Order Comment: Campu s: MAS POC COLOR YELLOW Normal [facility] Comment on above: Order Comment: Campu s: MAS POC KETONE Negative Normal NEGATIVE [facility] Comment on above: Order Comment: Titus s: REGGIE POC LEUK EST Negative Normal NEGATIVE [facility] Comment on above: Order Comment: Titus s: REGGIE POC NITRITE Negative Normal NEGATIVE [facility] Comment on above: Order Comment: Titus s: MAS POC PROTEIN Negative Normal NEGATIVE [facility] Comment on above: Order Comment: Titus s: REGGIE POC SPEC GRAV 1.020 Normal 1.005-1.030 [facility] Comment on above: Order Comment: Aldairu s: REGGIE POC UA GLUCOSE NORMAL Normal NORMAL [facility] Comment on above: Order Comment: Titus s: REGGIE POC UA PH 6.0 Normal 5-6 [facility] Comment on above: Order Comment: Titus s: REGGIE POC UROBIL NORMAL Normal NORMAL [facility] Comment on above: Order Comment: Titus harris: REGGIE [facility]Con 12-29-[facility] DATE OF SERVICE: 12/29/2020 REASON OF VISIT: [...] visit. Review of other systems normal. ALLERGIES: MIKE, ADHESIVES, SULFA. MEDICATIONS: Leftover amoxicillin. PHYSICAL EXAMINATION: She is awake, alert, not in distress. No dyspnea. Temperature 97.5, blood pressure 149/70, pulse 83, respirations 18, pulse oximetry 97%. Pain score 2/10. HEENT: Unremarkable. Chest: Clear to auscultate. Heart: Regular rate and rhythm. Abdomen: Benign. No CVA tenderness. Urine dipstick was negative for leukocytes, nitrite, blood, and protein. ASSESSMENT: Urinary tract infection. [facility] PATIENT NAME: LCAY CARDENASjohanne Mora MEDICAL REC #: [id number] [place] [address] [facility] REPORT [facility] PHYSICIAN PLAN: Clinical findings discussed [...] Patient understands and agrees. Yumiko Gavin MD /[id number] SSI File#: [id number] END OF DOCUMENT / CHANGE LOG FOLLOWS Last Edited By Elec. Signed By Yumiko Gavin MD #PAWPR Yumiko Gavin MD #PAWPR on 01/09/2021 19:40 ET on 01/09/2021 19:40 ET Revision Number - 2 [facility] PATIENT NAME: LACY CARDENAS Stephany Mora MEDICAL REC #: [id number] [place] [address] [facility] REPORT [facility] PHYSICIAN Verified/Reviewed by 01/09/21 1940 PAWPR [facility] PATIENT NAME: LACY CARDENAS [address] [facility] [address] Mora MEDICAL REC #: [id number] [place] [address] [facility] REPORT [facility] PHYSICIAN Normal [facility] CMPon 11-01-2020 Albumin [Mass/Vol] 3.8 g/dL Normal 3.2-5.0 [facility] Comment on above: Performed By: #### L 500.88236, L500.12330, L500.99936, L500.04186 #### [facility] [address] [place], [place] [address] Albumin/Globulin [Mass ratio] 1.1 {ratio} Normal 0.8-2.0 [facility] Comment on above: Performed By: #### L 500.56150, L500.12675, L500.32571, L500.25808 #### [facility] [address] [place], [place] [address] ALK PHOS 95 U/L Normal 45-117 [facility] Comment on above: Performed By: #### L 500.65695, L500.77109, L500.01786, L500.14496 #### [facility] [address] [place] [address] ALT [Catalytic activity/Vol] 14 U/L Normal 13-61 [facility] Comment on above: Result Comment: RESU LTS MAY BE FALSELY DEPRESSED AFTER THE ADMINISTRATION OF SULFASALAZINE AND/OR SULFAPYRIDINE. Performed By: #### L 500.47576, L500.13865, L500.02665, L500.11899 #### [facility] [place] [address] Anion gap [Moles/Vol] 6 mmol/L Normal 5-16 [facility] Comment on above: Performed By: #### L 500.06152, L500.36253, L500.34158, L500.64462 #### [facility] [address] [place] [address] AST [Catalytic activity/Vol] 15 U/L Normal 8-34 [facility] Comment on above: Result Comment: RESU LTS MAY BE FALSELY DEPRESSED AFTER THE ADMINISTRATION OF SULFASALAZINE AND/OR SULFAPYRIDINE. Performed By: #### L 500.52436, L500.36527, L500.83977, L500.04184 #### [facility] [address] [place] [address] BILI TOTAL 0.40 MG/DL Normal 0.2-1.0 [facility] Comment on above: Performed By: #### L 500.99502, L500.88523, L500.43425, L500.35897 #### [facility] [address] [place] [address] Calcium [Mass/Vol] 9.9 mg/dL Normal 8.5-10.5 [facility] Comment on above: Result Comment: NOTE NEW NORMAL RANGE DUE TO REAGENT CHANGE Performed By: #### L 500.51510, L500.95614, L500.49723, L500.65322 #### [facility] [place] [address] Chloride [Moles/Vol] 107 mmol/L Normal 98-107 [facility] Comment on above: Performed By: #### L 500.80496, L500.18822, L500.68093, L500.80983 #### [facility] [address] [place] [address] CO2 [Moles/Vol] 27.0 mmol/L Normal 21-32 [facility] Comment on above: Performed By: #### L 500.03749, L500.32736, L500.61466, L500.37880 #### [facility] [place] [address] Creatinine [Mass/Vol] 0.62 mg/dL Normal 0.510-0.950 [facility] Comment on above: Result Comment: Brisa ents receiving either N-Acetylcysteine (NAC) or Metamizole prior to venipuncture, may have falsely depressed results. Performed By: #### L 500.02640, L500.20142, L500.70828, L500.88874 #### [facility] [address] [place] [address] Globulin (S) [Mass/Vol] 3.6 g/dL Normal 2.2-4.2 [facility] Comment on above: Performed By: #### L 500.40659, L500.84795, L500.65791, L500.65106 #### [facility] [place] [address] Glucose [Mass/Vol] 83 mg/dL Normal 70-100 [facility] Comment on above: Result Comment: 70-1 00- Normal Fasting; 100-125 Impaired Fasting; greater than 126 on more than one result- Diabetes. ADA guidelines. Results may be falsely elevated after the administration of Sulfapyridine. Results may be falsely depressed after the administration of Sulfasalazine. Performed By: #### L 500.03661, L500.29218, L500.81121, L500.20785 #### [facility] [place] [address] Potassium [Moles/Vol] 4.8 mmol/L Normal 3.5-5.1 [facility] Comment on above: Performed By: #### L 500.23904, L500.96760, L500.54721, L500.48253 #### [facility] [place] [address] Protein [Mass/Vol] 7.4 g/dL Normal 6.0-8.5 [facility] Comment on above: Performed By: #### L 500.06553, L500.18096, L500.93264, L500.02777 #### [facility] [address] [place] [address] Sodium [Moles/Vol] 140 mmol/L Normal 136-145 [facility] Comment on above: Performed By: #### L 500.32688, L500.22569, L500.82346, L500.23087 #### [facility] [address] [place], [place] [address] Urea nitrogen [Mass/Vol] 10 mg/dL Normal 7-26 [facility] Comment on above: Performed By: #### L 500.44387, L500.95598, L500.64182, L500.68006 #### [facility] [address] [place] [address] Urea nitrogen/Creatinine [Mass ratio] 16 mg/mg Normal 15-24 [facility] Comment on above: Performed By: #### L 500.74641, L500.09489, L500.26261, L500.45930 #### [facility] [address] [place] [address] GFR ESTon 11-01-2020 IF AMER Greater than 60 Normal [facility] Comment on above: Performed By: #### L 500.03938, L500.36744 #### [facility] [address] [place], [place] [address] IF non-AFR AMER Greater than 60 Normal [facility] Comment on above: Performed By: #### L 500.71738, L500.77403 #### [facility] [address] [place] [address] LIPIDon 11-01-2020 CHOL 126 MG/dL Normal 0-199 [facility] Comment on above: Performed By: #### L 500.27592, L500.79605 #### [facility] [place] [address] Cholesterol in HDL [Mass/Vol] 68 mg/dL Normal GREATER THAN 40 [facility] Comment on above: Result Comment: Brisa ents receiving Metamizole prior to venipuncture, may have falsely depressed results. Performed By: #### L 500.84248, L500.20161 #### [facility] [address] [place] [address] Cholesterol in LDL [Mass/Vol] 53 mg/dL Normal [facility] Comment on above: Result Comment: ___C HOLESTEROL/HDL RATIO RISK___ CHD RISK = Total CHOL LDL HDL (CHOL/HDL) Recommended <200 <130 >40 <3.4 Borderline 200-239 130-159 3.4-4.99 High >240 >160 >5.0 Performed By: #### L 500.37975, L500.56021 #### [facility] [address] [place] [address] Triglyceride [Mass/Vol] 25 mg/dL Low 30-149 [facility] Comment on above: Result Comment: Brisa ents receiving either N-Acetylcysteine (NAC) or Metamizole prior to venipuncture, may have falsely depressed results. Performed By: #### L 500.97450, L500.40748 #### [facility] [address] [place] [address] TSHon 11-01-2020 TSH 0.630 UIU/ML Normal 0.358-3.740 [facility] Comment on above: Result Comment: 3rd generation ultra sensitive TSH Performed By: #### L 500.45794, L500.86302 #### [facility] [address] [place] [address] UA COMPLETEon 11-01-2020 Color (U) Yellow Normal [facility] Comment on above: Performed By: #### L 600.49331 #### [facility] [address] [place] [address] Glucose (U) [Mass/Vol] Negative Normal NORMAL [facility] Comment on above: Performed By: #### L 600.05238 #### [facility] [address] [place] [address] UA APPEARANCE Clear Normal CLEAR [facility] Comment on above: Performed By: #### L 600.71808 #### [facility] [address] [place], [place] [address] UA BILIRUBIN Negative Normal NEGATIVE [facility] Comment on above: Performed By: #### L 600.96286 #### [facility] [address] [place] [address] UA BLOOD Negative Normal NEGATIVE [facility] Comment on above: Performed By: #### L 600.96679 #### [facility] [place] [address] UA KETONE 5 Normal NEGATIVE [facility] Comment on above: Performed By: #### L 600.70651 #### [facility] [address] [place] [address] UA LK ESTERASE Negative Normal NEGATIVE [facility] Comment on above: Performed By: #### L 600.54564 #### [facility] [address] [place] [address] UA NITRITE Negative Normal NEGATIVE [facility] Comment on above: Performed By: #### L 600.83930 #### [facility] [address] [place] [address] UA PH 6.0 Normal 5-6 [facility] Comment on above: Performed By: #### L 600.11293 #### [facility] [address] [place] [address] UA PROTEIN Negative Normal NEGATIVE [facility] Comment on above: Performed By: #### L 600.88421 #### [facility] [address] [place] [address] UA SPEC GRAV 1.015 Normal 1.005-1.030 [facility] Comment on above: Performed By: #### L 600.70377 #### [facility] [address] [place] [address] UA UROBILINOGEN Negative Normal NORMAL [facility] Comment on above: Performed By: #### L 600.96398 #### [facility] [address] [place] [address] CBC W/DIFFon 10-31-2020 BASO ABS 0.10 K/CU MM Normal 0-0.2 [facility] Comment on above: Performed By: #### L 200.73955 #### [facility] [address] [place] [address] Basophils/100 WBC (Bld) 0.6 % Normal 0-2 [facility] Comment on above: Performed By: #### L 200.58963 #### [facility] [address] [place] [address] EOS ABS 0.00 K/CU MM Normal 0-0.5 [facility] Comment on above: Performed By: #### L 200.41162 #### [facility] [address] [place] [address] Eosinophils/100 WBC (Bld) 0.4 % Normal 0-5 [facility] Comment on above: Performed By: #### L 200.52190 #### [facility] [address] [place] [address] Erythrocyte distribution width (RBC) [Ratio] 11.9 % Normal 11-14.5 [facility] Comment on above: Performed By: #### L 200.87769 #### [facility] [address] [place] [address] Hematocrit (Bld) [Volume fraction] 41.3 % Normal 35.0-47.0 [facility] Comment on above: Performed By: #### L 200.30315 #### [facility] [address] [place] [address] Hemoglobin (Bld) [Mass/Vol] 13.4 g/dL Normal 11.5-15.5 [facility] Comment on above: Performed By: #### L 200.75981 #### [facility] [address] [place] [address] IMMATR GRAN ABS 0.00 K/CU MM Normal Less than 2 [facility] Comment on above: Performed By: #### L 200.46154 #### [facility] [address] [place] [address] IMMATURE GRAN % 0.4 % Normal Less than 2 [facility] Comment on above: Performed By: #### L 200.36868 #### [facility] [address] [place] [address] LYMPH ABS 2.50 K/CU MM Normal 0.9-4.4 [facility] Comment on above: Performed By: #### L 200.14576 #### [facility] [address] [place] [address] Lymphocytes/100 WBC (Bld) 23.4 % Normal 20-40 [facility] Comment on above: Performed By: #### L 200.11274 #### [facility] [address] [place] [address] MCHC (RBC) [Mass/Vol] 32.4 g/dL Normal 32.0-36.0 [facility] Comment on above: Performed By: #### L 200.15722 #### [facility] [address] [place] [address] MCV (RBC) [Entitic vol] 87.9 fL Normal 80.0-99.0 [facility] Comment on above: Performed By: #### L 200.64265 #### [facility] [address] [place] [address] MONO ABS 0.60 K/CU MM Normal 0.1-1.1 [facility] Comment on above: Performed By: #### L 200.19836 #### [facility] [address] [place] [address] Monocytes/100 WBC (Bld) 5.4 % Normal 2-10 [facility] Comment on above: Performed By: #### L 200.18887 #### [facility] [address] [place] [address] NEUTROPHIL ABS 7.60 K/CU MM Normal 2.0-8.3 [facility] Comment on above: Performed By: #### L 200.58392 #### [facility] [address] [place] [address] Neutrophils/100 WBC (Bld) 69.8 % Normal 45-75 [facility] Comment on above: Performed By: #### L 200.10919 #### [facility] [address] [place] [address] Nucleated RBC/100 WBC (Bld) [Ratio] 0.0 % Normal Less than 1 [facility] Comment on above: Performed By: #### L 200.28536 #### [facility] [address] [place] [address] Platelet mean volume (Bld) [Entitic vol] 10.1 fL Normal 9.4-12.4 [facility] Comment on above: Performed By: #### L 200.32996 #### [facility] [address] [place] [address] PLT 319 K/CU MM Normal 150-450 [facility] Comment on above: Performed By: #### L 200.01671 #### [facility] [address] [place] [address] RBC 4.70 M/CU MM Normal 3.90-5.30 [facility] Comment on above: Performed By: #### L 200.83718 #### [facility] [address] [place] [address] WBC 10.9 K/CUMM Normal 4.5-11.0 [facility] Comment on above: Performed By: #### L 200.16668 #### [facility] [address] [place] [id number] BMPon 10-20-2020 Anion gap [Moles/Vol] 3 mmol/L Low 5-16 [facility] Comment on above: Order Comment: Campu s: M Performed By: #### L 500.66386, L500.73982 #### [facility] [address] [place] [address] Calcium [Mass/Vol] 10.0 mg/dL Normal 8.5-10.5 [facility] Comment on above: Order Comment: Campu s: M Result Comment: NOTE NEW NORMAL RANGE DUE TO REAGENT CHANGE Performed By: #### L 500.90305, L500.24543 #### [facility] [address] [place] [address] Chloride [Moles/Vol] 106 mmol/L Normal 98-107 [facility] Comment on above: Order Comment: Campu s: M Performed By: #### L 500.10408, L500.47103 #### [facility] [address] [place] [address] CO2 [Moles/Vol] 31.0 mmol/L Normal 21-32 [facility] Comment on above: Order Comment: Campu s: M Performed By: #### L 500.30088, L500.70515 #### [facility] [place] [address] Creatinine [Mass/Vol] 0.66 mg/dL Normal 0.510-0.950 [facility] Comment on above: Order Comment: Campu s: M Result Comment: Brisa ents receiving either N-Acetylcysteine (NAC) or Metamizole prior to venipuncture, may have falsely depressed results. Performed By: #### L 500.95220, L500.01236 #### [facility] [place] [address] Glucose [Mass/Vol] 129 mg/dL High 70-100 [facility] Comment on above: Order Comment: Campu s: M Result Comment: 70-1 00- Normal Fasting; 100-125 Impaired Fasting; greater than 126 on more than one result- Diabetes. ADA guidelines. Results may be falsely elevated after the administration of Sulfapyridine. Results may be falsely depressed after the administration of Sulfasalazine. Performed By: #### L 500.10727, L500.54175 #### [facility] [address] [place] [address] Potassium [Moles/Vol] 4.6 mmol/L Normal 3.5-5.1 [facility] Comment on above: Order Comment: Campu s: M Performed By: #### L 500.48635, L500.74304 #### [facility] [address] [place] [address] Sodium [Moles/Vol] 140 mmol/L Normal 136-145 [facility] Comment on above: Order Comment: Campu s: M Performed By: #### L 500.56306, L500.79376 #### [facility] [address] [place] [address] Urea nitrogen [Mass/Vol] 10 mg/dL Normal 7-26 [facility] Comment on above: Order Comment: Campu s: M Performed By: #### L 500.91815, L500.99461 #### [facility] [address] [place], [place] [address] Urea nitrogen/Creatinine [Mass ratio] 15 mg/mg Normal 15-24 [facility] Comment on above: Order Comment: Campu s: M Performed By: #### L 500.09251, L500.80905 #### [facility] [address] [place] [address]1006 EKGon 10-20-2020 Electrocardiogram Procedure Date and T [...] PM Referred By: Nicola Ching Confirmed By:Jose CULLEN M.D.FACC Merissa DDandT: 10/20/20 1410 TDandT: [facility] PATIENT NAME: LACY CARDENAS [facility] [address] Mora MEDICAL REC #: [id number] [place] [address] ADMIT DATE: DISCHARGE DATE: ATTENDING PHY: Darryn Ferreira,Emergency Physi ELECTROCARDIOGRAM REPORT CLB cc: [facility] PATIENT NAME: LACY CARDENAS [facility] [address] Mora MEDICAL REC #: [id number] [place] [address] ADMIT DATE: DISCHARGE DATE: ATTENDING PHY: Darryn Ferreira,Emergency Physi ELECTROCARDIOGRAM REPORT [facility] REPORT This is a preliminary report only, as the practitioner review and authentication has not occurred. Normal [facility] ER PHYSICIAN ASSESSMENT RECORDS : Discharge Report Event Time: 10/20/2020 15:13 : FlexChartData Event Time: 10/20/2020 15:45 Status: Signed [facility] Lacy Cardenas [[id number]] Attending Physician 1995 Chart (V2b) Chart created at 10/20/2020 15:08 by Nicola Ching Chart closed at 10/20/2020 15:12 Entry in Emergency Department at 10/20/2020 13:14, departure at 10/20/2020 15:41 Patient Name: Lacy Cardenas Record Number: [id number] Date: 10/20/2020 15:08 Entered Department at: 10/20/2020 [...] to occur somewhat frequently when she is [facility] PATIENT NAME: LACY CARDENAS [address] [facility] [address]a MEDICAL REC #: [id number] [place] [id number] EMERGENCY DEPARTMENT REPORT EMERGENCY DEPARTMENT PHYSICIAN gets [...] Normal Gait, Cranial Nerves 2-12 Normal, Speech [facility] PATIENT NAME: LACY CARDENAS [address] [facility] [address]a MEDICAL REC #: [id number] [place] [address] EMERGENCY DEPARTMENT REPORT EMERGENCY DEPARTMENT PHYSICIAN Normal and 5/5 UE/LE Strength Skin: Warm and Dry Psychological: Mood/Affect Normal BMP, information as of 10/20/2020, 2:07 pm 140 --------+--------+------- -andlt; 129* Anion Gap = Less Than 3 4.6 alert_gap=3 BUN/CREA: 15; CALCIUM TOTAL: 10.0 Mg/Dl Cardiogram: [...] 1. A (more content not included)... Normal [facility] GFR ESTon 10-20-2020 IF AMER Greater than 60 Normal [facility] Comment on above: Order Comment: Titus s: M Performed By: #### L [id number], L500.21489 #### [facility] [address] [place] [address] IF non-AFR AMER Greater than 60 Normal [facility] Comment on above: Order Comment: Titus s: M Performed By: #### L 500.95001, L500.57326 #### [facility] [address] [place] [address] HCGon 10-11-2020 HCG SER RESULT Negative Normal NEGATIVE [facility] Comment on above: Performed By: #### L 500.90961 #### [facility] [address] [place] [address]45 BMPon 09-13-2020 Anion gap [Moles/Vol] 7 mmol/L Normal 5-16 [facility] Comment on above: Order Comment: Titus s: M Performed By: #### L 500.67916, L500.15936 #### [facility] [address] [place] [address] Calcium [Mass/Vol] 9.5 mg/dL Normal 8.5-10.5 [facility] Comment on above: Order Comment: Campu s: M Result Comment: NOTE NEW NORMAL RANGE DUE TO REAGENT CHANGE Performed By: #### L 500.64317, L500.14551 #### [facility] [address] [place] [address]96 Chloride [Moles/Vol] 108 mmol/L High 98-107 [facility] Comment on above: Order Comment: Campu s: M Performed By: #### L 500.96790, L500.90224 #### [facility] [address] [place] [address] CO2 [Moles/Vol] 25.0 mmol/L Normal 21-32 [facility] Comment on above: Order Comment: Campu s: M Performed By: #### L 500.75390, L500.98634 #### [facility] [address] [place] [address] Creatinine [Mass/Vol] 0.67 mg/dL Normal 0.510-0.950 [facility] Comment on above: Order Comment: Campu s: M Result Comment: Brisa ents receiving either N-Acetylcysteine (NAC) or Metamizole prior to venipuncture, may have falsely depressed results. Performed By: #### L 500.14834, L500.37482 #### [facility] [address] [place] [address] Glucose [Mass/Vol] 93 mg/dL Normal 70-100 [facility] Comment on above: Order Comment: Campu s: M Result Comment: 70-1 00- Normal Fasting; 100-125 Impaired Fasting; greater than 126 on more than one result- Diabetes. ADA guidelines. Results may be falsely elevated after the administration of Sulfapyridine. Results may be falsely depressed after the administration of Sulfasalazine. Performed By: #### L 500.27689, L500.95984 #### [facility] [address] [place] [address] Potassium [Moles/Vol] 3.9 mmol/L Normal 3.5-5.1 [facility] Comment on above: Order Comment: Campu s: M Performed By: #### L 500.85465, L500.82955 #### [facility] [place] [address] Sodium [Moles/Vol] 140 mmol/L Normal 136-145 [facility] Comment on above: Order Comment: Campu s: M Performed By: #### L 500.67688, L500.92588 #### [facility] [address] [place] [address] Urea nitrogen [Mass/Vol] 12 mg/dL Normal 7-26 [facility] Comment on above: Order Comment: Campu s: M Performed By: #### L 500.53858, L500.15892 #### [facility] [address] [place] [address]990 Urea nitrogen/Creatinine [Mass ratio] 18 mg/mg Normal 15-24 [facility] Comment on above: Order Comment: Campu s: M Performed By: #### L 500.36533, L500.96668 #### [facility] [address] [place] [address] Pablo 09-13-2020 EMERGENCY PHYSICIAN REPORT This is a preliminary report only, as the practitioner review and authentication has not occurred. Normal [facility] ER PHYSICIAN ASSESSMENT RECORDS : FlexChartData Event Time: 09/13/2020 15:05 Status: Signed [facility] Lacy Cardenas [[id number]] Attending Physician / 1995 Addendum (V2b) Chart created at 09/13/2020 14:32 by Braden Williamson Chart closed at 09/13/2020 14:32 Entry in Emergency Department at 09/13/2020 12:45, departure at 09/13/2020 14:58 Patient Name: Lacy Cardenas Record Number: [id number] Date: 09/13/2020 14:32 Entered Department at: 09/13/2020 [...] FlexChartData Event Time: 09/13/2020 15:05 Status: Signed [facility] Lacy Cardenas [[id number]] [facility] PATIENT NAME: LACY CARDENAS [address] [facility] REC #: [id number] [place] [address] EMERGENCY DEPARTMENT REPORT EMERGENCY DEPARTMENT PHYSICIAN Attending Physician 1995 Chart (V2b) Chart created at 09/13/2020 14:27 by Braden Williamson Chart closed at 09/13/2020 14:30 Entry in Emergency Department at 09/13/2020 12:45, departure at 09/13/2020 14:58 Patient Name: Lacy Cardenas Record Number: [id number] Date: 09/13/2020 14:27 Entered Department at: 09/13/2020 [...] she was at work and had a [employer] center working outside she became overheated and [...] Fever Eyes: negative for Eye Pain Ear/Nose/Throat: [facility] PATIENT NAME: LACY CARDENAS [facility] Dr. Mora MEDICAL REC #: [id number] [place] [address] EMERGENCY DEPARTMENT REPORT EMERGENCY DEPARTMENT PHYSICIAN negative [...] information as of 09/13/2020, 1:40 pm 140 --------+--------+------- -andlt; 93 Anion Gap = 7 3.9 BUN/CREA: 18; CALCIUM TOTAL: 9.5 Mg/Dl Cardiogram: Monitor / Rhythm Strip: NSR: monitoring specialist needed in light of the patients symptoms Medical Decision Making Patient was given IV fluids, p.o. fluids, her electrolytes are normal, she has no complaints. She is certainly prone to vasomotor near syncope likely heat related. Will be given follow-up instructions and [facility] PATIENT NAME: [facility] Mora MEDICAL REC #: [id number] [place] [address] EMERGENCY DEPARTMENT REP (more content not included)... Normal [facility] GFR ESTon 09-13-2020 IF AMER Greater than 60 [facility] Comment on above: Order Comment: Campu s: M Performed By: #### L 500.48017, L500.11172 #### [facility] [address] [place] [address] IF non-AFR AMER Greater than 60 [facility] Comment on above: Order Comment: Campu s: M Performed By: #### L 500.15933, L500.79462 #### [facility] [address] [place] [address]71 Vital Signs Date Time Vital Sign Value Performing Clinician Facility 12-29-2024 14:04-0400 Body height 170.18 cm No Primary Care Physician [facility] 12-29-2024 14:04-0400 Body mass index (BMI) [Ratio] 41.3 kg/m2 No Primary Care Physician [facility] 12-29-2024 14:04-0400 Body weight 119.54 kg No Primary Care Physician [facility] 12-29-2024 14:04-0400 Diastolic blood pressure 72 mm[Hg] No Primary Care Physician [facility] 12-29-2024 14:04-0400 Systolic blood pressure 125 mm[Hg] No Primary Care Physician [facility] 12-17-2024 14:34-0400 Body mass index (BMI) [Ratio] 41.1 kg/m2 No Primary Care Physician [facility] 12-17-2024 14:34-0400 Body weight 119.09 kg No Primary Care Physician [facility] 12-17-2024 14:34-0400 Diastolic blood pressure 82 mm[Hg] No Primary Care Physician [facility] 12-17-2024 14:34-0400 Systolic blood pressure 131 mm[Hg] No Primary Care Physician [facility] 11-19-2024 14:51-0400 Body height 170.18 cm No Primary Care Physician [facility] 11-19-2024 14:51-0400 Body mass index (BMI) [Ratio] 40.1 kg/m2 No Primary Care Physician [facility] 11-19-2024 14:51-0400 Body weight 116.23 kg No Primary Care Physician [facility] 11-19-2024 14:51-0400 Diastolic blood pressure 72 mm[Hg] No Primary Care Physician [facility] 11-19-2024 14:51-0400 Systolic blood pressure 125 mm[Hg] No Primary Care Physician [facility] 10-19-2024 13:07-0400 Body height 170.18 cm No Primary Care Physician [facility] 10-19-2024 13:07-0400 Body mass index (BMI) [Ratio] 40.1 kg/m2 No Primary Care Physician [facility] 10-19-2024 13:07-0400 Body weight 116.26 kg No Primary Care Physician [facility] 10-19-2024 13:07-0400 Diastolic blood pressure 75 mm[Hg] No Primary Care Physician [facility] 10-19-2024 13:07-0400 Systolic blood pressure 116 mm[Hg] No Primary Care Physician [facility] 06-07-2024 15:04-0400 Body height 170.18 cm No Primary Care Physician [facility] 06-07-2024 15:02-0400 Body mass index (BMI) [Ratio] 40.2 kg/m2 No Primary Care Physician [facility] 06-07-2024 15:02-0400 Body weight 116.62 kg No Primary Care Physician [facility] 06-07-2024 15:02-0400 Diastolic blood pressure 83 mm[Hg] No Primary Care Physician [facility] 06-07-2024 15:02-0400 Systolic blood pressure 131 mm[Hg] No Primary Care Physician [facility] 04-16-2024 11:07-0500 Body mass index (BMI) [Ratio] 40.7 kg/m2 No Primary Care Physician [facility] 04-16-2024 11:07-0500 Body weight 117.93 kg No Primary Care Physician [facility] 04-16-2024 11:07-0500 Diastolic blood pressure 84 mm[Hg] No Primary Care Physician [facility] 04-16-2024 11:07-0500 Systolic blood pressure 124 mm[Hg] No Primary Care Physician [facility] 03-07-2024 13:30-0500 Body temperature 98 [degF] No Primary Care Physician [facility] 03-07-2024 13:30-0500 Diastolic blood pressure 79 mm[Hg] No Primary Care Physician [facility] 03-07-2024 13:30-0500 Heart rate 65 /min No Primary Care Physician [facility] 03-07-2024 13:30-0500 Respiratory rate 14 /min No Primary Care Physician [facility] 03-07-2024 13:30-0500 Systolic blood pressure 143 mm[Hg] No Primary Care Physician [facility] 03-07-2024 08:30-0500 SaO2% (BldA) [Mass fraction] 99 % No Primary Care Physician [facility] 03-04-2024 09:21-0500 Body mass index (BMI) [Ratio] 43.6 kg/m2 No Primary Care Physician [facility] 03-04-2024 09:21-0500 Body weight 126.26 kg No Primary Care Physician [facility] 03-04-2024 09:00-0500 Diastolic blood pressure 84 mm[Hg] No Primary Care Physician [facility] 03-04-2024 09:00-0500 Systolic blood pressure 134 mm[Hg] No Primary Care Physician [facility] 03-04-2024 08:38-0500 Body mass index (BMI) [Ratio] 43.7 kg/m2 No Primary Care Physician [facility] 03-04-2024 08:38-0500 Body weight 126.66 kg No Primary Care Physician [facility] 02-27-2024 09:39-0500 Body mass index (BMI) [Ratio] 43.6 kg/m2 No Primary Care Physician [facility] 02-27-2024 09:39-0500 Body weight 126.26 kg No Primary Care Physician [facility] 02-27-2024 09:39-0500 Diastolic blood pressure 77 mm[Hg] No Primary Care Physician [facility] 02-27-2024 09:39-0500 Systolic blood pressure 120 mm[Hg] No Primary Care Physician [facility] 02-23-2024 09:10-0500 Body mass index (BMI) [Ratio] 43.2 kg/m2 No Primary Care Physician [facility] 02-23-2024 09:10-0500 Body weight 125.36 kg No Primary Care Physician [facility] 02-23-2024 09:05-0500 Diastolic blood pressure 76 mm[Hg] No Primary Care Physician [facility] 02-23-2024 09:05-0500 Heart rate 86 /min No Primary Care Physician [facility] 02-23-2024 09:05-0500 Systolic blood pressure 129 mm[Hg] No Primary Care Physician [facility] 02-23-2024 09:04-0500 Body temperature 97.5 [degF] No Primary Care Physician [facility] 02-23-2024 09:04-0500 Respiratory rate 16 /min No Primary Care Physician [facility] 02-20-2024 10:43-0500 Diastolic blood pressure 80 mm[Hg] No Primary Care Physician [facility] 02-20-2024 10:43-0500 Heart rate 73 /min No Primary Care Physician [facility] 02-20-2024 10:43-0500 Systolic blood pressure 136 mm[Hg] No Primary Care Physician [facility] 02-20-2024 10:21-0500 SaO2% (BldA) [Mass fraction] 99 % No Primary Care Physician [facility] 02-20-2024 09:46-0500 Body mass index (BMI) [Ratio] 43.4 kg/m2 No Primary Care Physician [facility] 02-20-2024 09:46-0500 Body weight 125.64 kg No Primary Care Physician [facility] 02-20-2024 08:26-0500 Body mass index (BMI) [Ratio] 43.4 kg/m2 No Primary Care Physician [facility] 02-20-2024 08:26-0500 Body weight 125.64 kg No Primary Care Physician [facility] 02-20-2024 08:26-0500 Diastolic blood pressure 85 mm[Hg] No Primary Care Physician [facility] 02-20-2024 08:26-0500 Systolic blood pressure 125 mm[Hg] No Primary Care Physician [facility] 02-13-2024 13:42-0500 Diastolic blood pressure 79 mm[Hg] No Primary Care Physician [facility] 02-13-2024 13:42-0500 Heart rate 107 /min No Primary Care Physician [facility] 02-13-2024 13:42-0500 Systolic blood pressure 132 mm[Hg] No Primary Care Physician [facility] 02-13-2024 11:57-0500 SaO2% (BldA) [Mass fraction] 97 % No Primary Care Physician [facility] 02-13-2024 11:55-0500 Body temperature 98.6 [degF] No Primary Care Physician [facility] 02-13-2024 11:55-0500 Respiratory rate 18 /min No Primary Care Physician [facility] 02-13-2024 11:47-0500 Body mass index (BMI) [Ratio] 43.5 kg/m2 No Primary Care Physician [facility] 02-13-2024 11:47-0500 Body weight 126.21 kg No Primary Care Physician [facility] 02-13-2024 09:17-0500 Body mass index (BMI) [Ratio] 43.5 kg/m2 No Primary Care Physician [facility] 02-13-2024 09:17-0500 Body weight 126.09 kg No Primary Care Physician [facility] 02-13-2024 09:17-0500 Diastolic blood pressure 83 mm[Hg] No Primary Care Physician [facility] 02-13-2024 09:17-0500 Systolic blood pressure 120 mm[Hg] No Primary Care Physician [facility] 11-22-2023 10:51-0400 Body height 170.2 cm CARA RODRIGUEZ VENEER [facility] 11-22-2023 10:51-0400 Body temperature 98.24 [degF] CARA RODRIGUEZ [facility] 11-22-2023 10:51-0400 Body weight 122 kg CARA RODRIGUEZ [facility] 11-22-2023 10:51-0400 Body weight 42.12 kg/m2 CARA RODRIGUEZ [facility]ENE[facility] 11-22-2023 10:51-0400 Diastolic Blood Pressure Non-Invasive 62 mm[Hg] CARA RODRIGUEZ [facility] 11-22-2023 10:51-0400 Heart rate 61 /min CARA RODRIGUEZ [facility] 11-22-2023 10:51-0400 Systolic Blood Pressure Non-Invasive 125 mm[Hg] CARA RODRIGUEZ [facility] 11-22-2023 10:46-0400 Diastolic Blood Pressure Non-Invasive 64 mm[Hg] CARA RODRIGUEZ [facility] 11-22-2023 10:46-0400 Heart rate 62 /min CARA RODRIGUEZ [facility] 11-22-2023 10:46-0400 Systolic Blood Pressure Non-Invasive 131 mm[Hg] CARA MARQUEZLER [facility] 06-30-2023 22:35-0400 Blood Pressure Cuff Size CANDI WILLKA DO [facility] 06-30-2023 22:35-0400 Blood Pressure Location CANDI WILLKA DO [facility] 06-30-2023 22:35-0400 Blood Pressure Method CANDI NUNEZESKA DO [facility] 06-30-2023 22:35-0400 Diastolic Blood Pressure Non-Invasive 88 mm[Hg] CANDI DURESKA DO [facility] 06-30-2023 22:35-0400 Heart rate 68 /min CANDI DURESKA DO [facility] 06-30-2023 22:35-0400 Respiratory rate 14 /min CANDI DURESKA DO [facility] 06-30-2023 22:35-0400 Systolic Blood Pressure Non-Invasive 138 mm[Hg] CANDI DURESKA DO [facility] 06-30-2023 18:48-0400 Body temperature 97.52 [degF] CANDI DURESKA DO [facility] 06-30-2023 18:48-0400 Body weight 122.1 kg CANDI DURESKA DO [facility] 06-30-2023 18:48-0400 Diastolic Blood Pressure Non-Invasive 80 mm[Hg] CANDI DURESKA DO [facility] 06-30-2023 18:48-0400 Heart rate 92 /min CANDI NUNEZESKA DO [facility] 06-30-2023 18:48-0400 Respiratory rate 16 /min CANDI SOLISKA DO [facility] 06-30-2023 18:48-0400 Systolic Blood Pressure Non-Invasive 162 mm[Hg] CANDI SOLISKA DO [facility] 10-29-2022 20:56-0400 Diastolic blood pressure 110 mm[Hg] Emily Silva MD Work Phone: [facility] [email or web address] 10-29-2022 20:56-0400 Heart rate 72 /min Emily Silva MD Work Phone: [email or web address] 10-29-2022 20:56-0400 Respiratory rate 15 /min Emily Silva MD Work Phone: [facility] [email or web address] 10-29-2022 20:56-0400 SaO2% (BldA) [Mass fraction] 100 % Emily Silva MD Work Phone: [facility] [email or web address] 10-29-2022 20:56-0400 Systolic blood pressure 158 mm[Hg] Emily Silva MD Work Phone: [email or web address] 10-29-2022 17:50-0400 Body temperature 97.11 [degF] Emily Silva MD Work Phone: [facility] [email or web address] 10-29-2022 15:21-0400 Body weight 117.94 kg Emily Silva MD Work Phone: [facility] [email or web address] 05-08-2022 12:58-0500 Diastolic Blood Pressure Non-Invasive 95 1 ASHTYN LION MD [facility] 05-08-2022 12:58-0500 Heart rate 98 /min ASHTYN LION MD [facility] 05-08-2022 12:58-0500 Respiratory rate 18 /min ASHTYN LION MD [facility] 05-08-2022 12:58-0500 Systolic Blood Pressure Non-Invasive 154 1 ASHTYN LION MD [facility] 05-08-2022 10:34-0500 Body height 170.2 cm ASHTYN LION MD [facility] 05-08-2022 10:34-0500 Body temperature 98.78 [degF] ASHTYN LION MD [facility] 05-08-2022 10:34-0500 Body weight 127.3 kg ASHTYN LION MD [facility] 05-08-2022 10:34-0500 Diastolic Blood Pressure Non-Invasive 77 1 ASHTYN LION MD [facility] 05-08-2022 10:34-0500 Heart rate 66 /min ASHTYN LION MD [facility] 05-08-2022 10:34-0500 Respiratory rate 16 /min ASHTYN LION MD [facility] 05-08-2022 10:34-0500 Systolic Blood Pressure Non-Invasive 137 1 ASHTYN LION MD [facility] 05-08-2022 09:16-0500 Body temperature 99 [degF] Indira Rapp PA-C Work Phone: [facility] 05-08-2022 09:16-0500 Body weight 126.1 kg Indira Rapp PA-C Work Phone: [facility] 05-08-2022 09:16-0500 Diastolic blood pressure 81 mm[Hg] Indira Rapp PA-C Work Phone: [facility] 05-08-2022 09:16-0500 Heart rate 64 /min Indira Rapp PA-C Work Phone: [facility] 05-08-2022 09:16-0500 Respiratory rate 22 /min Indira Rapp PA-C Work Phone: [facility] 05-08-2022 09:16-0500 SaO2% (BldA) [Mass fraction] 100 % Indira Rapp PA-C Work Phone: [facility] 05-08-2022 09:16-0500 Systolic blood pressure 137 mm[Hg] Indira Rapp PA-C Work Phone: [facility] Encounters Encounter Date Encounter Type Care Provider Facility Start: 01-12-2025 End: 01-12-2025 ambulatory Mely Castillo Facility:[facility] Start: 01-11-2025 End: 01-11-2025 ambulatory [facility] Start: 12-29-2024 End: 12-29-2024 ambulatory Ceci Valdezs HINGING MACHINE OPERATOR Facility:[facility] Start: 12-29-2024 End: 12-29-2024 ambulatory Ceci Valdezs HINGING MACHINE OPERATOR Facility:[facility] Start: 12-17-2024 End: 12-17-2024 Patient encounter procedure Jerome De Anda CNM -[facility] Work Phone: Start: 12-17-2024 End: 12-17-2024 ambulatory No Primary Care Physician -[facility] Start: 11-19-2024 End: 11-19-2024 Patient encounter procedure Jerome De Anda CNM -[facility] Work Phone: Start: 11-19-2024 End: 11-19-2024 ambulatory No Primary Care Physician -[facility] Start: 10-19-2024 End: 10-19-2024 Patient encounter procedure Jerome De Anda CNM -[facility] Work Phone: Start: 10-19-2024 End: 10-19-2024 ambulatory No Primary Care Physician -[facility] Start: 10-19-2024 End: 10-19-2024 ambulatory No Primary Care Physician Facility:[facility] Start: 10-08-2024 End: 10-08-2024 ambulatory No Primary Care Physician -[facility] Start: 10-08-2024 End: 10-08-[address] Mely Castillo MD -[facility]trasound [facility] Work Phone: Start: 10-08-2024 End: 10-08-2024 ambulatory Mely Castillo Facility:[facility] Start: 09-30-2024 End: 09-30-2024 ambulatory No Primary Care Physician -Lab [facility] Start: 09-30-2024 End: 09-30-2024 Patient encounter procedure Jerome De Anda CNM -[facility] Start: 09-30-2024 End: 09-30-2024 ambulatory Jerome De Anda Facility:[facility] Start: 09-28-2024 End: 09-28-2024 ambulatory No Primary Care Physician -[facility] Start: 09-28-2024 End: 09-28-[address] Yue Patel DO -[facility] Start: 09-28-2024 End: 09-28-2024 ambulatory Yue Patel Facility:[facility] Start: 06-07-2024 End: 06-07-2024 Patient encounter procedure Jerome De Anda CNM -[facility] Work Phone: Start: 06-07-2024 End: 06-07-2024 ambulatory No Primary Care Physician [facility] Work Phone: Start: 06-07-2024 End: 06-07-2024 ambulatory Jerome De Anda Facility:[facility] Start: 04-16-2024 End: 04-16-2024 Patient encounter procedure Jerome De Anda CNM -[facility] Work Phone: Start: 04-16-2024 End: 04-16-2024 ambulatory No Primary Care Physician Facility:[facility] Start: 03-12-2024 ambulatory Jerome De Anda Facility :[facility] Start: 03-11-2024 ambulatory No Primary Car e Physician Facility:[facility] Start: 03-08-2024 End: 03-08-2024 Patient encounter procedure HINGING MACHINE OPERATOR Dunia Walters -[facility] Work Phone: Start: 03-08-2024 End: 03-08-2024 ambulatory Dunia Romeo HINGING MACHINE OPERATOR Facility:[facility] Start: 03-07-2024 Non-patient / Non-visit Barbie Griffith ins CNM -[facility] Start: 03-06-2024 Non-patient / Non-visit Barbie Griffith ins CNM -[facility] Start: 03-05-2024 Non-patient / Non-visit Jerome Voss ms CNM -[facility] Start: 03-04-2024 Non-patient / Non-visit Jerome Voss ms CNM -[facility] Start: 03-04-2024 ambulatory Jerome Bryon Facility :[facility] Start: 03-04-2024 End: 03-07-2024 Evaluation and management of inpatient Barbie Trevizo CNM -[facility] Work Phone: Start: 03-04-2024 End: 03-04-[address] Mely Castillo MD -[facility] Work Phone: Start: 03-04-2024 End: 03-04-2024 ambulatory Mely Castillo Facility:[facility] Start: 03-01-2024 End: 03-01-2024 Patient encounter procedure Jerome De Anda CNM -[facility] Work Phone: Start: 03-01-2024 End: 03-01-2024 ambulatory Jerome De Anda Facility:[facility] Start: 02-27-2024 End: 02-27-[address] Mely Castillo MD -[facility] Work Phone: Start: 02-27-2024 End: 02-27-2024 ambulatory Mely Castillo Facility:[facility] Start: 02-23-2024 ambulatory Jerome De Anda Facility :[facility] Start: 02-23-2024 Non-patient / Non-visit Jerome Voss [facility] Start: 02-23-2024 End: 02-23-2024 ambulatory eJrome De Anda Facility:[facility] Start: 02-23-2024 End: 02-23-2024 Patient encounter procedure Jerome De Anda CNM [facility] Work Phone: Start: 02-21-2024 ambulatory Barbie Trevizo Facilit y:[facility] Start: 02-21-2024 Non-patient / Non-visit Barbie cuevas [facility] Start: 02-20-2024 End: 02-20-2024 ambulatory Barbie Trevizo Facility:[facility] Start: 02-20-2024 End: 02-20-2024 Patient encounter procedure Barbiefernando Trevizo CNM [facility] Work Phone: Start: 02-20-2024 End: 02-20-[address] Yue Patel -[facility] Work Phone: Start: 02-20-2024 End: 02-20-2024 ambulatory Yue Patel Facility:[facility] Start: 02-16-2024 End: 02-16-2024 ambulatory [facility] Start: 02-13-2024 ambulatory Jerome De Anda Facility :[facility] Start: 02-13-2024 Non-patient / Non-visit Jerome Voss [facility] Start: 02-13-2024 End: 02-13-2024 ambulatory Jerome De Anda Facility:[facility] Start: 02-13-2024 End: 02-13-2024 Patient encounter procedure Jerome De Anda CN[facility] Work Phone: Start: 02-13-2024 End: 02-13-2024 Patient encounter procedure Jerome De Anda CN -[facility] Work Phone: Start: 02-13-2024 End: 02-13-2024 ambulatory Jerome De Anda Facility:[facility] Start: 02-02-2024 End: 02-02-2024 ambulatory Jerome Bryon Facility:[facility] Start: 01-28-2024 ambulatory Mely Barrsuresh Minerva lity:[facility] Start: 01-28-2024 End: 01-28-2024 ambulatory Mely Dubontanvir Facility:[facility] Start: 01-28-2024 End: 01-28-2024 ambulatory No Primary Care Physician Facility:[facility] Start: 01-22-2024 End: 01-22-2024 ambulatory Ceci Galvez NP Facility:[facility] Start: 01-15-2024 End: 01-15-2024 ambulatory MELY CASTILLO [facility] Start: 11-22-2023 End: 11-22-2023 ambulatory NONE PHYSICIAN Facility:[facility] Start: 11-22-2023 End: 11-22-2023 SAME DAY STAY CARA RODRIGUEZ VENEER SAWYER-CNM [facility] Start: 07-02-2023 End: 07-02-2023 ambulatory [facility] Work Phone: Start: 07-02-2023 End: 07-02-2023 Patient encounter procedure [facility] Start: 06-30-2023 End: 07-01-2023 Emergency department patient visit CANDI CONTRERAS DO Facility:B Start: 06-30-2023 End: 06-30-2023 Emergency department patient visit CANDI WILLMERCEDES [facility] Start: 06-30-2023 End: 06-30-2023 ambulatory [facility] Work Phone: Start: 06-30-2023 End: 06-30-2023 Patient encounter procedure [facility] Work Phone: Start: 10-29-2022 End: 10-29-2022 Emergency department patient visit [facility] Start: 10-29-2022 End: 10-29-2022 Emergency department patient visit Emily Silva MD Work Phone: [facility] EMERGENCY DEPT Comment on above: Foreign body of righ t eye, initial encounter (Primary Dx) Start: 10-29-2022 Documentation procedure Александр Rinaldi Work Phone: [facility] 7W MED SURG Comment on above: Eye Pain Start: 05-08-2022 End: 05-08-2022 ambulatory INDIRA BELTRAN-Dougie RAPP Facility:[id number] Start: 05-08-2022 End: 05-08-2022 Emergency department patient visit ASHTYN LION MD [facility] Start: 05-08-2022 End: 05-08-2022 Office outpatient visit 15 minutes Indira Rapp PA-C Work Phone: [facility] Comment on above: , unspecifi ed gestational age (Primary Dx); Pelvic pain; Vaginal bleeding Start: 01-01-2021 Patient encounter procedure Yumiko Gavin MD Work Phone: [facility] Start: 01-01-2021 Progress Note Yumiko Gavin MD Work Phone: [facility] Procedures Date Procedure Procedure Detail Performing Clinician Start: 10-19-2024 Urine culture No Primar y Care Physician Start: 10-19-2024 Hepatitis C antibody measurement No Primary Care Physician Comment on above: Reactive: Presumptiv e evidence of antibodies to HCV. Follow CDC recommendations for supplemental testing.Non-Reactive: Antibodies to HCV were not detected; does not exclude the possibility of exposure to HCVReactive Results are presumptive evidence of antibodies to HCV. Follow CDC recommendations for supplemental testing.Order confirmation testing: HCV Quant by PCR testing - HCVPCR #[id number] Non Reactive: < 0.8 Equivocal: >/= 0.8 to < 1.0 Reactive: >/= 1.0The CDC requires that a reactive/equivocal HCV antibody result be sent out for confirmation. HCV Quant by PCR testing. Start: 10-19-2024 Rubella IgG measurement No Primary Care Physician Comment on above: Antibody Result: Int erpretationNon-Reactive: Non- ImmuneReactive: ImmuneThe following results were obtained with the [employer] Rubella IgG assay. Results from assays of other manufacturers cannot be used interchangeably. Start: 10-19-2024 Serologic test for syphilis No Primary Care Physician Start: 10-08-2024 Transvaginal obstetr ic ultrasonography No Primary Care Physician Start: 03-04-2024 Ultrasonography for biophysical profile without non-stress testing No Primary Care Physician Start: 03-01-2024 Ultrasonography for biophysical profile without non-stress testing No Primary Care Physician Start: 02-23-2024 Ultrasonography for biophysical profile without non-stress testing No Primary Care Physician Start: 02-13-2024 Beta-hemolytic Strep tococcus culture No Primary Care Physician Start: 02-13-2024 Ultrasonography for biophysical profile without non-stress testing No Primary Care Physician Start: 10-20-2020 Ecg routine ecg w/le ast 12 lds i&r only Plan of Treatment Date Care Activity Detail Author Start: 2046 Zoster Vaccines (1 of 2) Zoster Vaccines (1 of 2) [facility] [email or web address] Start: 12-29-2024 End: 12-29-2024 Patient encounter procedure Departed Clinical -Laboratory Specimen Work Phone: Start: 12-29-2024 Urine culture Urine Culture [facility] Start: 12-29-2024 End: 12-29-2024 Patient encounter procedure Obesity affecting -[facility] Work Phone: Start: 10-19-2024 CBC W Auto Differential panel - Blood [facility] Start: 10-19-2024 Hemoglobin A1c/Hemoglobin.total in Blood [facility] Start: 10-19-2024 Hepatitis C antibody measurement [facility] Start: 10-19-2024 Rubella IgG measurement [facility] Start: 10-19-2024 Serologic test for syphilis [facility] Start: 10-19-2024 [facility] Start: 03-07-2024 Patient discharge [facility] Start: 03-06-2024 Documentation procedure [facility] Start: 03-06-2024 [facility] Start: 03-06-2024 Consultation [facility] Start: 03-05-2024 Administration of medication [facility] Start: 03-05-2024 Application of ice collar, cap or bag [facility] Start: 03-05-2024 Catheterization of vein [facility] Start: 03-05-2024 Introduction of urinary catheter [facility] Start: 03-05-2024 Measuring intake and output [facility] Start: 03-05-2024 Notification of physician [facility] Start: 03-05-2024 Procedure discontinued [facility] Start: 03-05-2024 Provision of activity privileges [facility] Start: 03-05-2024 Vital signs measurements [facility] Start: 03-05-2024 End: 03-05-2024 [facility] Start: 03-05-2024 Documentation procedure [facility] Start: 03-04-2024 Admission procedure [facility] Start: 03-01-2024 biophysical profile w/o non-stress testing BIOPHYS PROFIL W/O NST [facility] Start: 02-23-2024 Nonstress test [facility] Start: 02-23-2024 Obstetric monitoring [facility] Start: 02-23-2024 Vital signs measurements [facility] Start: 02-23-2024 [facility] Start: 02-23-2024 Patient discharge [facility] Start: 02-20-2024 Nonstress test [facility] Start: 02-20-2024 Obstetric monitoring [facility] Start: 02-20-2024 Vital signs measurements [facility] Start: 02-20-2024 [facility] Start: 02-20-2024 Patient discharge [facility] Start: 02-13-2024 Nonstress test [facility] Start: 02-13-2024 Obstetric monitoring [facility] Start: 02-13-2024 Vital signs measurements [facility] Start: 02-13-2024 [facility] Start: 11-08-2022 Influenza vaccination Influenza Vaccine (#1) [facility] Start: 03-10-2022 DEPRESSION ASSESSMENT DEPRESSION ASSESSMENT [facility] Start: 11-08-2021 Influenza vaccination INFLUENZA (#1) [facility] Start: 2017 PAP TESTING PAP TESTING [facility] Start: 2017 Screening for malignant neoplasm of cervix Pap Smear [facility] Start: 05-29-2015 DTaP/Tdap/Td Vaccines (1 - Tdap) DTaP/Tdap/Td Vaccines (1 - Tdap) [facility] Start: 05-29-2015 Urine microalbumin profile DTAP,TDAP,TD (1 - Tdap) [facility] Start: 2014 HEPATITIS C SCREENING HEPATITIS C SCREENING [facility] Start: 2014 Hepatitis C screening Hepatitis C Screening [facility] Start: 2014 HIV SCREENING HIV SCREENING [facility] Start: 2010 PEDS TO ADULT TRANSITION ANNUAL ASSESSMENT PEDS TO ADULT TRANSITION ANNUAL ASSESSMENT [facility] Start: 2008 Depression Screening Depression Screening [facility] Start: 2008 PEDS TO ADULT TRANSITION INITIAL DISCUSSION PEDS TO ADULT TRANSITION INITIAL DISCUSSION [facility] Start: 05-29-2007 HPV VACCINE (1 - 2-dose series) HPV VACCINE (1 - 2-dose series) [facility] Start: 05-29-2007 HPV Vaccines (1 - 2-dose series) HPV Vaccines (1 - 2-dose series) [facility] Start: 1997 MMR Vaccines (1 of 1 - Standard series) MMR Vaccines (1 of 1 - Standard series) [facility] Start: 1997 Varicella vaccination Varicella Vaccines (1 of 2 - 2-dose childhood series) [facility] Start: 1996 COVID-19 VACCINE (#1) COVID-19 VACCINE (#1) [facility] Start: 1996 HEPATITIS B (1 of 3 - 3-dose series) HEPATITIS B (1 of 3 - 3-dose series) [facility] Start: 1996 Hepatitis B Vaccines (1 of 3 - 3-dose series) Hepatitis B Vaccines (1 of 3 - 3-dose series) [facility] Start: 1996 HIV screening HIV Screening [facility] Chlamydia deoxyribon ucleic acid detection [facility] Erythrocyte mean cor puscular volume determination [facility] Biophysical pr ofile panel US [facility] Hematocrit [Volume F raction] of Blood [facility] Hemoglobin [Mass/vol ume] in Blood [facility] Hepatitis B virus pritchett rface Ag [Presence] in Serum [facility] Leukocytes [#/volume ] in Blood [facility] Mean corpuscular hem oglobin concentration determination [facility] Mean corpuscular hem oglobin determination [facility] Neutrophil count [facility] Neutrophil percent differential count [facility] Patient Education [facility] Work Phone: Patient referral [facility] Work Phone: Platelets [#/volume] in Blood [facility] Red blood cell count [facility] Red cell distributio n width determination [facility] Immunizations Immunization Date Immunization Notes Care Provider Fa cility 01-08-2024 tetanus toxoid, redu eva diphtheria toxoid, and acellular pertussis vaccine, adsorbed No Primary Care Physician [facility] Payers Date Payer Category Payer Self-pay 2023 Unknown [id number] 2023 Unknown [id number] 2022 Unknown [id number] 2022 Worker's Compensation [employer] [id number] 2022-Present [id number] [place] [address] Worker's Comp [id number]. [id number] 1996 Unknown [id number] 2..840.1.400336.3.579.2.62 7 1996 Unknown [id number] 2..840.1.214853.3.579.2.62 7 1996 Unknown [id number] 2.16.840.1.649136.3.579.2.47 9 1996 Unknown [id number] 2.16.840.1.923232.3.579.2.47 9 1996 Unknown [id number] 2.16.840.1.404363.3.579.2.47 9 Unknown [id number] 2.16.840.1.630122.3.579.2.46 2 Unknown [id number] 2.16.840.1.640523.3.579.2.46 2 Unknown [id number] 2.16.840.1.679919.3.579.2.46 2 Unknown [id number] 2.16.840.1.827939.3.579.2.46 2 Unknown [id number] 2.16.840.1.277536.3.579.2.46 2 Unknown [id number] 2.16.840.1.621803.3.579.2.46 2 Unknown [id number] 2.16.840.1.376459.3.579.2.46 2 Unknown [id number] 2.16.840.1.214604.3.579.2.46 2 Unknown [id number] 2.16.840.1.391376.3.579.2.46 2 Unknown [id number] 2.16.840.1.050379.3.579.2.46 2 Unknown [id number] 2.16.840.1.615393.3.579.2.46 2 Unknown [id number] 2.16.840.1.370322.3.579.2.46 2 Unknown [id number] 2.16.840.1.861716.3.579.2.46 2 Unknown [id number] 2.16.840.1.672605.3.579.2.46 2 Unknown [id number] 2.16.840.1.775245.3.579.2.46 2 Unknown [id number] 2.16.840.1.478312.3.579.2.46 2 Unknown [id number] 2.16.840.1.393532.3.579.2.46 2 Unknown [id number] 2.16.840.1.563923.3.579.2.46 2 Unknown [id number] 2.16.840.1.886205.3.579.2.46 2 Unknown [id number] 2.16.840.1.498006.3.579.2.46 2 Unknown [id number] 2.16.840.1.648435.3.579.2.46 2 Unknown [id number] 2.16.840.1.417457.3.579.2.46 2 Unknown [id number] 2.16.840.1.764468.3.579.2.46 2 Unknown [id number] 2.16.840.1.457704.3.579.2.46 2 Unknown [id number] 2.16.840.1.121869.3.579.2.46 2 Unknown [id number] 2.16.840.1.500636.3.579.2.46 2 Unknown [id number] 2.16.840.1.759190.3.579.2.46 2 Unknown [id number] 2.16.840.1.336705.3.579.2.46 2 Unknown [id number] 2.16.840.1.487231.3.579.2.46 2 Unknown [id number] 2.16.840.1.361473.3.579.2.46 2 Unknown [id number] 2.16.840.1.854530.3.579.2.46 2 Unknown [id number] 2.16.840.1.755426.3.579.2.46 2 Unknown [id number] 2.16.840.1.286240.3.579.2.46 2 Unknown [id number] 2.16.840.1.823033.3.579.2.46 2 Unknown [id number] 2.16.840.1.960460.3.579.2.46 2 Unknown [id number] 2.16.840.1.171006.3.579.2.46 2 Unknown [id number] 2.16.840.1.451800.3.579.2.46 2 Unknown [id number] 2.16.840.1.136281.3.579.2.46 2 Unknown [id number] 2.16.840.1.021576.3.579.2.46 2 Unknown [id number] 2.16.840.1.679450.3.579.2.46 2 Unknown [id number] 2.16.840.1.545032.3.579.2.46 2 Unknown [id number] 2.16.840.1.888856.3.579.2.46 2 Social History Date Type Detail Facility Start: 07-08-2023 Tobacco smoking status [facility] Tobacco smoking consumption unknown [facility] Start: 1995 Sex Assigned At Not on file [facility] Start: 05-08-2022 End: 10-07-2024 Tobacco smoking status [facility] Never smoked tobacco [facility] Start: 05-08-2022 End: 10-29-2022 Tobacco use and exposure Smokeless tobacco non-user [facility] Start: 05-08-2022 Alcohol intake Current drinke r of alcohol (finding) [facility] Start: 05-08-2022 Alcohol Comment once a month [facility] Start: 10-29-2022 History of Social function [facility] Start: 10-29-2022 Tobacco use panel [facility] Start: 10-19-2022 End: 10-29-2022 Exposure to SARS-CoV-2 (event) Not sure [facility] Start: 1995 Sex Assigned At Female W [facility] Sex Assigned At Sex [facility] Start: 06-10-2024 [facility] (finding[facility] Medical Equipment Procedure Code Equipment Code Equipment Origin al Text Equipment Identifier Dates fluorescein 1 MG ophthalmic strip 1 strip [id number] Start: 10-29-2022 End: 10-29-2022 Goals Date Patient Goal Desired Activity /State Functional Status Date Assessment Result Facility 03-06-2024 Functional status Activity Ability Indepe ndent [facility] Work Phone: 11-22-2023 Functional Status Current Home Treatments [facility] 06-30-2023 Functional Status Independent [facility] 06-30-2023 Functional Status Standard Safet y ID band on, Allergy Band on, Call device within reach, Bed in low position, Wheels locked [facility] 05-08-2022 Functional Status Independent Yonicamelia magdaleno [facility] 05-08-2022 Functional Status ID band on, Allergy Band on, Call device within reach, Bed in low position, Wheels locked, Visitor at bedside [facility] Mental Status Date Assessment Result Facility 03-06-2024 Cognitive function Appropriate;[facility] Work Phone: 06-30-2023 Mental Status Orientation Oriented x 4 [facility] 06-30-2023 Mental Status [facility] 05-08-2022 Mental Status Orientation Oriented x 4 [facility] 05-08-2022 Mental Status [facility] Clinical Notes 01-01-2021 to 12-17-2024 Note Date & Type Note Facility 12-17-2024 Progress note [facility] 12-17-2024 Progress note Note Date/Time December 17, 2024 3:30pm [facility] [address], [address] [place] [address] OFFICE VISIT Date of Service: 12/17/24 MR#: [id number] Acct: [id number] Name: LACY MACIAS Rep #: [id number] : 1995 Provider: JAN De Anda Age/Sex: 29/F Location: [facility] Status: Signed Intake Vital Signs 10/19/24 13:07 11/19/24 14:51 12/17/24 14:34 12/17/24 14:34 Height 5 ft 7 in 5 ft 7 in 5 ft 7 in Weight: 262 lb 9 oz BMI 41.1 BP 131/82 H Intake Visit Reasons: 16wk ob Clinician Oncology Required: No Is patient in pain?: No Allergies mike Allergy (Severe, Verified 12/17/24 14:32) Anaphylaxis adhesive Allergy (Intermediate, Verified 12/17/24 14:32) Rash Sulfa (Sulfonamide Antibiotics) Adverse Reaction (Intermediate, Verified 12/17/24 14:32) Diarrhea Medications ?Medication ?Instructions ?Recorded ?Confirmed ?Type multivit-min no.71-iron fum 28 cap PO 10/07/24 5 History mg-folate no.1 1 mg-dha 300 mg capsule (PNV-Waldo) Last Menstrual Period: 08/01/24 Zika: Zika virus screening: Negative : No Have you fallen in the past year?: No PFSH PFSH Medical History (spontaneous vaginal delivery) Chemical Social History adopted: No household members: spouse and family housing: house number of children: 1 current occupational status: employed current occupation: [employer] current occupational exposures/hazards: Yes (extreme heat) pets and animals: Yes (Avoid litterbox) pets and animals: cat(s) and other details: yulissa history of recent travel: Yes ([place]) out of state: Yes out of country: No sexually active: Yes Smoking Status: Never smoker alcohol intake: current alcohol intake frequency: holidays/special occasions only details: not while substance use type: does not use well-balanced diet: daily or most days caffeine: No eating out: rarely or never during the past year weight has: increased > 10 lbs what type of physical activity do you participate in: walking frequency: 5-6 times per week duration: 60-90 minutes/day janae/jewish: Mandaeism seatbelt use: always do you feel safe at home: Yes additional social history: Leonardo History 3 Elective abortions Hx Para 1 Spontaneous abortions 1 Hx # Term Pregnancies 1 Ectopic pregnancies Hx # Pregnancies Multiple births # of living children 1 Past Pregnancies Del. Date Name GA/Weeks Outcome Route Bth Weight Gen Labor Lgth Anesthesia Del Locatn Provider FOB 05/09/22 5 spontaneous 03/05/24 Cole 39 live - full term 7lb 5oz Male ep idural [facility] Barbie Trevizo Leonardo Delivery Date: 03/05/24 Last Updated by: Salma Lynn IOL [facility] 06/15 HPI 16wk ob Details: LACY MACIAS is a 29 year old who presents for routine OB visit. OB Visit STEPHAN Calculator Estimated Delivery Date Method Current WG Current Estimate 06/03/25 Ultrasound #1 16w 0d Other Estimates 05/08/25 LMP (Certain) 19w 5d 06/05/25 Ultrasound #2 15w 5d Expected Delivery Route/Plan Labor Preferences- CB/BF classes: [] labor support person: [] labor intervention preferences: [] pain management options preferred: [] cut cord/dad catch: [] : [] PP control planned: [] discussed possible routes of delivery and associated risks: [] special requests: [] Specific Issue/Plans Covid status: [] Flu vaccine: [] Tdap vaccine: [] Rhogam: [] LARC form signed: [] Problem list reviewed and updated with the most current plan of care details and appropriate orders placed. Relevant counseling for the gestational age provided. Continue routine care and follow up unless otherwise noted in visit notes/problem list details Initial Weight: 256 lb Date -?-?-?-?-?-?-?-?-?-?-?-?- EGA Weight BP Urine Prot -?-?-?-?-?-?-?-?-?-?-?-?- Glucose FHR FuHt Pres Dilation -?-?-?-?-?-?-?-?-?-?-?-?- Effaced St Visit Note 10/19/24 -?-?-?-?-?-?-?-?-?-?-?-?- 7w 4d 256 lb 5 oz (+5 oz) 116/75 -?-?-?-?-?-?-?-?-?-?-?-?- 146 -?-?-?-?-?-?-?-?-?-?-?-?- KW- CRL 1.16cm c ons with formal scan. declines NIPT. 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 anatomy US with MFM. 12/17/24 -?-?-?-?-?-?-?-?-?-?-?-?- 16w 0d 262 lb 9 oz (+6 lb 9 oz) 131/82 Negative -?-?-?-?-?-?-?-?-?-?-?-?- Negative 150 -?-?-?-?-?-?-?-?-?-?-?-?- KW- no vb/crampi ng. possible flutters. Declines AFP.US scheduled. ACOG First Trimester First Trimester: Desire for , Alcohol, Tobacco Cessation, Illicit/Recreational Drug/Substance Use, Intimate Partner Violence, Barriers to care, Unstable Housing, Communication Barriers, Environmental/Work Hazards, Anticipated Course of Care, Toxoplasmosis Precations, Use of Any medications, Sexual activity, Exercise, Dental Care, Sauna/Hot tub use, Seat Belt use, Childbirth classes/Hospital facilities, Travel, Indications for Ultrasound and Screening for Aneuploidy; Discussed Second Trimester Second Trimester: Signs and Symptoms of Labor, Selecting a care provider, Reproductive Life Planning & Contreception and Care Planning; Discussed Tobacco Cessation, Discussed Depression/Anxiety and Discussed Intimate Partner Violence Third Trimester Third Trimester: Pain Management Plans, Labor support person(s), Immediate Larc, Circumcision preference, Signs and Symptoms of Preeclampsia, Feeding No , Education and Family Medical Leave or Disability Forms ROS Const Reports system reviewed and no additional complaints, except as documented Eyes Reports system reviewed and no additional complaints, except as documented ENT Reports system reviewed and no additional complaints, except as documented Card Reports system reviewed and no additional complaints, except as documented Resp Reports system reviewed and no additional complaints, except as documented GI Reports system reviewed and no additional complaints, except as documented, Denies nausea and Denies vomiting Reports system reviewed and no additional complaints, except as documented Musc Reports system reviewed and no additional complaints, except as documented Skin/Breast Reports system reviewed and no additional complaints, except as documented Neuro Yes system reviewed and no additional complaints, except as documented Psych Reports system reviewed and no additional complaints, except as documented Endo Reports system reviewed and no additional complaints, except as documented Yonathan/Lymph Reports system reviewed and no additional complaints, except as documented Aller/Immun Reports system reviewed and no additional complaints, except as documented Exam Const General: cooperative, healthy appearing and no acute distress Orientation: alert, awake and oriented x3 Neck Neck: normal visual inspection and full ROM Resp Effort & Inspection: normal respiratory effort, able to speak in complete sentences and symmetric chest movement GI Inspection: normal to inspection Palpation: soft and other Other: gravid Skin General: no rashes or lesions noted Neuro General: patient alert, patient awake and patient oriented x3 Cognition: normal cognition Speech: speech normal Gait: normal gait Motor: muscle tone normal throughout Extrem General: normal to inspection and full ROM Psych Appearance: grossly normal Mental Status: mental status grossly normal Mood: congruent mood Affect: normal affect Speech and Movement: speech and movement normal Attitude: cooperative Thought Process: normal Thought Content: normal Judgment: judgment good Results POC Urinalysis 2 Dip (Clinic) Office Urine Glucose Negative Last Edit by Monse Thapa on 12/17/24 14:40 Office Urine Protein Negative Last Edit by Monse Thapa on 12/17/24 14:40 Coding Level of Care Code Off vis,est,level 3 Diagnoses Obesity affecting O99.210 Supervision of high-risk O09.90 16 weeks gestation of Z3A.16 Weeks of gestation: 16 weeks Varicella vaccination status unknown Z78.9 depression F53.0 Assessment and Plan Assessment and Plan (1) Obesity affecting : Status: Acute Comment: HgbA1c (2) Supervision of high-risk : Status: Acute Comment: , STEPHAN 06/03/25, WILFRED Galvan, Leonardo (3) : Status: Acute Qualifiers: Weeks of gestation: 16 weeks Qualified Code(s): Z3A.16 - 16 weeks gestation of Comment: declined NIPT & Carrier testing (4) Varicella vaccination status unknown: Status: Acute Comment: states has not had virus (5) depression: Status: Acute Comment: Pt stopped taking citalopram 3 mos ago- stable Orders: Orders POC Urinalysis 2 Dip (Clinic) Today Plan Details Additional Comments: ACOG trimester education reviewed and updated. see problem list details for updated plan management information and see below for orders placed at this visit. [place] appropriate handout given. Clinical Quality Measures Falls Risk Screening/Assistive Devices Have you fallen in the past year?: No 12/17/24 1530 <Electronically signed by Jerome harris CNM> Date _ [facility] And[facility] Signature: Date (if applicable) CC: ~ [facility] Work Phone: 1(368) 748-178309-12-2025 [facility] [address] [place] [address], [address] [place] [address] OFFICE VISIT Date of Service: 11/19/24 MR#: [id number] Acct: [id number] Name: LACY MACIAS Rep #: [id number] : 1995 Provider: JAN De Anda Age/Sex: 29/F Location: [facility] Status: Signed Intake Vital Signs 06/07/24 15:04 10/19/24 13:07 11/19/24 14:51 Height 5 ft 7 in 5 ft 7 in 5 ft 7 in Weight: 256 lb 4 oz BMI 40.1 BP 125/72 H Intake Visit Reasons: 12wk ob Chief Complaint: 12wk OB Clinician Oncology Required: No Is patient in pain?: No Allergies mike Allergy (Severe, Verified 11/19/24 14:49) Anaphylaxis adhesive Allergy (Intermediate, Verified 11/19/24 14:49) Rash Sulfa (Sulfonamide Antibiotics) Adverse Reaction (Intermediate, Verified 11/19/24 14:49) Diarrhea Medications ?Medication ?Instructions ?Recorded ?Confirmed ?Type multivit-min no.71-iron fum 28 cap PO 10/07/24 5 History mg-folate no.1 1 mg-dha 300 mg capsule (PNV-Waldo) Last Menstrual Period: 08/01/24 Have you fallen in the past year?: No PFSH PFSH Medical History (spontaneous vaginal delivery) Chemical Social History adopted: No household members: spouse and family housing: house number of children: 1 current occupational status: employed current occupation: [employer] current occupational exposures/hazards: Yes (extreme heat) pets and animals: Yes (Avoid litterbox) pets and animals: cat(s) and other details: yulissa history of recent travel: Yes ([place]) out of state: Yes out of country: No sexually active: Yes Smoking Status: Never smoker alcohol intake: current alcohol intake frequency: holidays/special occasions only details: not while substance use type: does not use well-balanced diet: daily or most days caffeine: No eating out: rarely or never during the past year weight has: increased > 10 lbs what type of physical activity do you participate in: walking frequency: 5-6 times per week duration: 60-90 minutes/day janae/jewish: Mandaeism seatbelt use: always do you feel safe at home: Yes additional social history: Leonardo History 3 Elective abortions Hx Para 1 Spontaneous abortions 1 Hx # Term Pregnancies 1 Ectopic pregnancies Hx # Pregnancies Multiple births # of living children 1 Past Pregnancies Del. Date Name GA/Weeks Outcome Route Bth Weight Gen Labor Lgth Anesthesia Del Locatn Provider FOB 05/09/22 5 spontaneous 03/05/24 Cole 39 live - full term 7lb 5oz Male ep idural [facility] Barbie Trevizo Leonardo Delivery Date: 03/05/24 Last Updated by: Salma Lynn IOL BPP 06/15 HPI 12wk ob Details: LACY MACIAS is a 29 year old who presents for routine OB visit. OB Visit STEPHAN Calculator Estimated Delivery Date Method Current WG Current Estimate 06/03/25 Ultrasound #1 12w 0d Other Estimates 05/08/25 LMP (Certain) 15w 5d 06/05/25 Ultrasound #2 11w 5d Expected Delivery Route/Plan Labor Preferences- CB/BF classes: [] labor support person: [] labor intervention preferences: [] pain management options preferred: [] cut cord/dad catch: [] : [] PP control planned: [] discussed possible routes of delivery and associated risks: [] special requests: [] Specific Issue/Plans Covid status: [] Flu vaccine: [] Tdap vaccine: [] Rhogam: [] LARC form signed: [] Problem list reviewed and updated with the most current plan of care details and appropriate ordersplaced. Relevant counseling for the gestational age provided. Continue routine care and follow up unless otherwise noted in visit notes/problem list details Initial Weight: 256 lb Date -?-?-?-?-?-?-?-?-?-?-?-?- EGA Weight BP Urine Prot -?-?-?-?-?-?-?-?-?-?-?-?- Glucose FHR FuHt Pres Dilation -?-?-?-?-?-?-?-?-?-?-?-?- Effaced St Visit Note 10/19/24 -?-?-?-?-?-?-?-?-?-?-?-?- 7w 4d 256 lb 5 oz (+5 oz) 116/75 -?-?-?-?-?--?-?-?-?-?-?-?- 146 -?-?-?-?-?-?-?-?-?-?-?-?- KW- CRL 1.16cm c ons with formal scan. declines NIPT. 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 anatomy US with MFM. ACOG First Trimester First Trimester: Desire for , Alcohol, Tobacco Cessation, Illicit/Recreational Drug/Substance Use, Intimate Partner Violence, Barriers to care, Unstable Housing, Communication Barriers, Environmental/Work Hazards, Anticipated Course of Care, Toxoplasmosis Precations, Use of Any med ications, Sexual activity, Exercise, Dental Care, Sauna/Hot tub use, Seat Belt use, Childbirth classes/Hospital facilities, Travel, Indications for Ultrasound and Screening for Aneuploidy Second Trimester Second Trimester: Signs and Symptoms of Labor, Selecting a care provider, Reproductive Life Planning & Contreception and Care Planning; Discussed Tobacco Cessation, Discussed Depression/Anxiety and Discussed Intimate Partner Violence Third Trimester Third Trimester: Pain Management Plans, Labor support person(s), Immediate Larc, Circumcision preference, Signs and Symptoms of Preeclampsia, Feeding, [place] Education and Family Medical Leave or Disability Forms ROS Const Reports system reviewed and no additional complaints, except as documented Eyes Reports system reviewed and no additional complaints, except as documented ENT Reports system reviewed and no additional complaints, except as documented Card Reports system reviewed and no additional complaints, except as documented Resp Reports system reviewed and no additional complaints, except as documented GI Reports system reviewed and no additional complaints, except as documented, Denies nausea and Denies vomiting Reports system reviewed and no additional complaints, except as documented Musc Reports system reviewed and no additional complaints, except as documented Skin/Breast Reports system reviewed and no additional complaints, except as documented Neuro Yes system reviewed and no additional complaints, except as documented Psych Reports system reviewed and no additional complaints, except as documented Endo Reports system reviewed and no additional complaints, except as documented Yonathan/Lymph Reports system reviewed and no additional complaints, except as documented Aller/Immun Reports system reviewed and no additional complaints, except as documented Exam Const General: cooperative, healthy appearing and no acute distress Orientation: alert, awake and oriented x3 Neck Neck: normal visual inspection and full ROM Resp Effort & Inspection: normal respiratory effort, able to speak in complete sentences and symmetric chest movement GI Inspection: normal to inspection Palpation: soft and other Other: gravid Skin General: no rashes or lesions noted Neuro General: patient alert, patient awake and patient oriented x3 Cognition: normal cognition Speech: speech normal Gait: normal gait Motor: muscle tone normal throughout Extrem General: normal to inspection and full ROM Psych Appearance: grossly normal Mental Status: mental status grossly normal Mood: congruent mood Affect: normal affect Speech and Movement: speech and movement normal Attitude: cooperative Thought Process: normal Thought Content: normal Judgment: judgment good Coding Level of Care Code Off vis,est,level 3 Diagnoses Obesity affecting O99.210 Supervision of high-risk O09.90 12 weeks gestation of Z3A.12 Weeks of gestation: 12 weeks Varicella vaccination status unknown Z78.9 depression F53.0 Assessment and Plan Assessment and Plan (1) Obesity affecting : Status: Acute Comment: HgbA1c (2) Supervision of high-risk : Status: Acute Comment: , STEPHAN 06/03/25, WILFRED Cole, Leonardo (3) : Status: Acute Qualifiers: Weeks of gestation: 12 weeks Qualified Code(s): Z3A.12 - 12 weeks gestation of Comment: declined NIPT & Carrier testing (4) Varicella vaccination status unknown: Status: Acute Comment: states has not had virus (5) depression: Status: Acute Comment: Pt stopped taking citalopram 3 mos ago- stable Orders: Orders POC Urinalysis 2 Dip (Clinic) Today Plan Details Additional Comments: ACOG trimester education reviewed and updated. see problem list details for updated plan management information and see below for orders placed atthis visit. [place] appropriate handout given. Clinical Quality Measures Falls Risk Screening/Assistive Devices Have you fallen in the past year?: No 11/19/24 1514 s TAWANNAM> Date _ Jerome De Anda CNM Cosigner Signature: Date (if applicable) CC: ~ [facility]09-12-2025 Progress note Author Jerome De Anda [facility] Note Date/Time November 19, 2024 3:14pm [facility] [address], [address] [place] [address] OFFICE VISIT Date of Service: 11/19/24 MR#: [id number] Acct: [id number] Name: LACY MACIAS Rep #: [id number] : 1995 Provider: JAN De Anda Age/Sex: 29/F Location: [facility] [place] Status: Signed Intake Vital Signs 06/07/24 15:04 10/19/24 13:07 11/19/24 14:51 Height 5 ft 7 in 5 ft 7 in 5 ft 7 in Weight: 256 lb 4 oz BMI 40.1 BP 125/72 H Intake Visit Reasons: 12wk ob Chief Complaint: 12wk OB Clinician Oncology Required: No Is patient in pain?: No Allergies mike Allergy (Severe, Verified 11/19/24 14:49) Anaphylaxis adhesive Allergy (Intermediate, Verified 11/19/24 14:49) Rash Sulfa (Sulfonamide Antibiotics) Adverse Reaction (Intermediate, Verified 11/19/24 14:49) Diarrhea Medications ?Medication ?Instructions ?Recorded ?Confirmed ?Type multivit-min no.71-iron fum 28 cap PO 10/07/24 5 History mg-folate no.1 1 mg-dha 300 mg capsule (PNV-Waldo) Last Menstrual Period: 08/01/24 Have you fallen in the past year?: No PFSH PFSH Medical History (spontaneous vaginal delivery) Chemical Social History adopted: No household members: spouse and family housing: house number of children: 1 current occupational status: employed current occupation: [employer] current occupational exposures/hazards: Yes (extreme heat) pets and animals: Yes (Avoid litterbox) pets and animals: cat(s) and other details: [facility] history of recent travel: Yes ([place]) out of state: Yes out of country: No sexually active: Yes Smoking Status: Never smoker alcohol intake: current alcohol intake frequency: holidays/special occasions only details: not while substance use type: does not use well-balanced diet: daily or most days caffeine: No eating out: rarely or never during the past year weight has: increased > 10 lbs what type of physical activity do you participate in: walking frequency: 5-6 times per week duration: 60-90 minutes/day janae/jewish: Mandaeism seatbelt use: always do you feel safe at home: Yes additional social history: Leonardo History 3 Elective abortions Hx Para 1 Spontaneous abortions 1 Hx # Term Pregnancies 1 Ectopic pregnancies Hx # Pregnancies Multiple births # of living children 1 Past Pregnancies Del. Date Name GA/Weeks Outcome Route Bth Weight Infant Gen Labor Lgth Anesthesia Del Locatn Provider FOB 05/09/22 5 spontaneous 03/05/24 Cole 39 live - full term 7lb 5oz Male ep idural [facility] Barbie Patterson Delivery Date: 03/05/24 Last Updated by: Salma Lynn IOL BPP 06/15 HPI 12wk ob Details: LACY MACIAS is a 29 year old who presents for routine OB visit. OB Visit STEPHAN Calculator Estimated Delivery Date Method Current WG Current Estimate 06/03/25 Ultrasound #1 12w 0d Other Estimates 05/08/25 LMP (Certain) 15w 5d 06/05/25 Ultrasound #2 11w 5d Expected Delivery Route/Plan Labor Preferences- CB/BF classes: [] labor support person: [] labor intervention preferences: [] pain management options preferred: [] cut cord/dad catch: [] : [] PP control planned: [] discussed possible routes of delivery and associated risks: [] special requests: [] Specific Issue/Plans Covid status: [] Flu vaccine: [] Tdap vaccine: [] Rhogam: [] LARC form signed: [] Problem list reviewed and updated with the most current plan of care details and appropriate orders placed. Relevant counseling for the gestational age provided. Continue routine care and follow up unless otherwise noted in visit notes/problem list details Initial Weight: 256 lb Date -?-?-?-?-?-?-?-?-?-?-?-?- EGA Weight BP Urine Prot -?-?-?-?-?-?-?-?-?-?-?-?- Glucose FHR FuHt Pres Dilation -?-?-?-?-?-?-?-?-?-?-?-?- Effaced St Visit Note 10/19/24 -?-?-?-?-?-?-?-?-?-?-?-?- 7w 4d 256 lb 5 oz (+5 oz) 116/75 -?-?-?-?-?--?-?-?-?-?-?-?- 146 -?-?-?-?-?-?-?-?-?-?-?-?- KW- CRL 1.16cm c ons with formal scan. declines NIPT. 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 anatomy US with MFM. ACOG First Trimester First Trimester: Desire for , Alcohol, Tobacco Cessation, Illicit/Recreational Drug/Substance Use, Intimate Partner Violence, Barriers to care, Unstable Housing, Communication Barriers, Environmental/Work Hazards, Anticipated Course of Care, Toxoplasmosis Precations, Use of Any medications, Sexual activity, Exercise, Dental Care, Sauna/Hot tub use, Seat Belt use, Childbirth classes/Hospital facilities, Travel, Indications for Ultrasound and Screening for Aneuploidy Second Trimester Second Trimester: Signs and Symptoms of Labor, Selecting a care provider, Reproductive Life Planning & Contreception and Care Planning; Discussed Tobacco Cessation, Discussed Depression/Anxiety and Discussed Intimate Partner Violence Third Trimester Third Trimester: Pain Management Plans, Labor support person(s), Immediate Larc, Circumcision preference, Signs and Symptoms of Preeclampsia, Infant Feeding, [place] Education and Family Medical Leave or Disability Forms ROS Const Reports system reviewed and no additional complaints, except as documented Eyes Reports system reviewed and no additional complaints, except as documented ENT Reports system reviewed and no additional complaints, except as documented Card Reports system reviewed and no additional complaints, except as documented Resp Reports system reviewed and no additional complaints, except as documented GI Reports system reviewed and no additional complaints, except as documented, Denies nausea and Denies vomiting Reports system reviewed and no additional complaints, except as documented Musc Reports system reviewed and no additional complaints, except as documented Skin/Breast Reports system reviewed and no additional complaints, except as documented Neuro Yes system reviewed and no additional complaints, except as documented Psych Reports system reviewed and no additional complaints, except as documented Endo Reports system reviewed and no additional complaints, except as documented Yonathan/Lymph Reports system reviewed and no additional complaints, except as documented Aller/Immun Reports system reviewed and no additional complaints, except as documented Exam Const General: cooperative, healthy appearing and no acute distress Orientation: alert, awake and oriented x3 Neck Neck: normal visual inspection and full ROM Resp Effort & Inspection: normal respiratory effort, able to speak in complete sentences and symmetric chest movement GI Inspection: normal to inspection Palpation: soft and other Other: gravid Skin General: no rashes or lesions noted Neuro General: patient alert, patient awake and patient oriented x3 Cognition: normal cognition Speech: speech normal Gait: normal gait Motor: muscle tone normal throughout Extrem General: normal to inspection and full ROM Psych Appearance: grossly normal Mental Status: mental status grossly normal Mood: congruent mood Affect: normal affect Speech and Movement: speech and movement normal Attitude: cooperative Thought Process: normal Thought Content: normal Judgment: judgment good Coding Level of Care Code Off vis,est,level 3 Diagnoses Obesity affecting O99.210 Supervision of high-risk O09.90 12 weeks gestation of Z3A.12 Weeks of gestation: 12 weeks Varicella vaccination status unknown Z78.9 depression F53.0 Assessment and Plan Assessment and Plan (1) Obesity affecting : Status: Acute Comment: HgbA1c (2) Supervision of high-risk : Status: Acute Comment: , STEPHAN 06/03/25, PC Cole, Leonardo (3) : Status: Acute Qualifiers: Weeks of gestation: 12 weeks Qualified Code(s): Z3A.12 - 12 weeks gestation of Comment: declined NIPT & Carrier testing (4) Varicella vaccination status unknown: Status: Acute Comment: states has not had virus (5) depression: Status: Acute Comment: Pt stopped taking citalopram 3 mos ago- stable Orders: Orders POC Urinalysis 2 Dip (Clinic) Today Plan Details Additional Comments: ACOG trimester education reviewed and updated. see problem list details for updated plan management information and see below for orders placed at this visit. [place] appropriate handout given. Clinical Quality Measures Falls Risk Screening/Assistive Devices Have you fallen in the past year?: No 11/19/24 1514 <Electronically signed by Jerome harris CNM> Date _ Jerome De Anda CNM Cosigner Signature: Date (if applicable) CC: ~ [facility] Work Phone: 1(856) 499-791808-12-2025 Evaluation note* Diagnosis Onset Date Resolution Status Admit Date Obesity affecting acute October 19, 2024 1:04pm depression acute Oct 1:04pm acute October 19, 2 025 1:04pm Supervision of high-risk acute October 19 1:04pm Varicella vaccination status unknown acute October 19 1:04pm [facility] Work Phone: 1(260) 410-156108-12-2025 Evaluation note* Diagnosis Onset Date Resolution Status Admit Date Obesity affecting acute October 19, 2024 1:04pm depression acute Oct 1:04pm acute October 19, 025 1:04pm Supervision of high-risk acute October 19 1:04pm Varicella vaccination status unknown acute October 19 1:04pm Obesity affecting acute November 19, 2024 2:45pm depression acute Nov 2:45pm acute November 2:45pm Supervision of high-risk acute November 19, 2024 2:45pm Varicella vaccination status unknown acute November 19, 2024 2:45pm [facility] [employer] [facility] Work Phone: 1(255) 594-285608-12-2025 Evaluation note* Diagnosis Onset Date Resolution Status Admit Date Obesity affecting acute October 19, 2024 1:04pm depression acute Oct 1:04pm acute October 19, 2 025 1:04pm Supervision of high-risk acute October 19 1:04pm Varicella vaccination status unknown acute October 19 1:04pm Obesity affecting acute November 19, 2024 2:45pm depression acute Sep 2024 2:45pm acute November 2:45pm Supervision of high-risk acute November 19, 2024 2:45pm Varicella vaccination status unknown acute November 19, 2024 2:45pm Obesity affecting acute December 17, 2024 2:28pm depression acute Oct 2024 2:28pm acute December 17, 2024 2:28pm Supervision of high-risk acute December 17 2:28pm Varicella vaccination status unknown acute December 17 2:28pm Obesity affecting acute December 29, 2024 1:50pm depression acute Oct douglas 2024 1:50pm acute December 29, 2024 1:50pm Supervision of high-risk acute December 29 1:50pm UTI in acute December 29, 2024 1:50pm Varicella vaccination status unknown acute December 29 1:50pm [facility] Work Phone: 1(365) 313-936608-12-2025 [facility] [address] [place] [address], [address] [place] [address] OFFICE VISIT Date of Service: 10/19/24 MR#: [id number] Acct: [id number] Name: LACY MACIAS Rep #: [id number] : 1995 Provider: JAN De Anda Age/Sex: 29/F Location: [facility] [place] Status: Signed Intake Vital Signs 06/07/24 15:04 10/19/24 13:07 Height 5 ft 7 in 5 ft 7 in Weight: 256 lb 5 oz BMI 40.1 BP 116/75 Intake Visit Reasons: *EST* NOB LMP 08/05, STEPHAN 05/12 Chief Complaint: New OB Clinician Oncology Required: No Is patient in pain?: No Allergies mike Allergy (Severe, Verified 10/19/24 13:05) Anaphylaxis adhesive Allergy (Intermediate, Verified 10/19/24 13:05) Rash Sulfa (Sulfonamide Antibiotics) Adverse Reaction (Intermediate, Verified 10/19/24 13:05) Diarrhea Medications ?Medication ?Instructions ?Recorded ?Confirmed ?Type multivit-min no.71-iron fum 28 cap PO 10/07/24 5 History mg-folate no.1 1 mg-dha 300 mg capsule (PNV-Waldo) Last Menstrual Period: 08/01/24 PFSH PFSH Medical History (spontaneous vaginal delivery) Chemical Social History adopted: No household members: spouse and family housing: house number of children: 1 current occupational status: employed current occupation: [employer] current occupational exposures/hazards: Yes (extreme heat) pets and animals: Yes (Avoid litterbox) pets and animals: cat(s) and other details: yulissa history of recent travel: Yes ([place]) out of state: Yes out of country: No sexually active: Yes Smoking Status: Never smoker alcohol intake: current alcohol intake frequency: holidays/special occasions only details: not while substance use type: does not use well-balanced diet: daily or most days caffeine: No eating out: rarely or never during the past year weight has: increased > 10 lbs what type of physical activity do you participate in: walking frequency: 5-6 times per week duration: 60-90 minutes/day janae/jewish: Mandaeism seatbelt use: always do you feel safe at home: Yes additional social history: Leonardo History 3 Elective abortions Hx Para 1 Spontaneous abortions 1 Hx # Term Pregnancies 1 Ectopic pregnancies Hx # Pregnancies Multiple births # of living children 1 Past Pregnancies Del. Date Name GA/Weeks Outcome Route Bth Weight Infant Gen Labor Lgth Anesthesia Del Locatn Provider FOB 05/09/22 5 spontaneous 03/05/24 Cole 39 live - full term 7lb 5oz Male ep idural [facility] Barbie Trevizo Leonardo Delivery Date: 03/05/24 Last Updated by: Salma Lynn IOL BPP 06/15 HPI *EST* NOB LMP 08/05, STEPHAN 05/12 Details: LACY MACIAS is a 29 year old who presents for New OB visit. OB Visit STEPHAN Calculator Estimated Delivery Date Method Current WG Current Estimate 06/03/25 Ultrasound #1 7w 4d Other Estimates 05/08/25 LMP (Certain) 11w 2d 06/05/25 Ultrasound #2 7w 2d Comments: HIV: Urine Culture: Sequential Screen: NIPT Screen: Estimated Due Date: 05/08/25 Expected Delivery Route/Plan Labor Preferences- CB/BF classes: [] labor support person: [] labor intervention preferences: [] pain management options preferred: [] cut cord/dad catch: [] : [] PP control planned: [] discussed possible routes of delivery and associated risks: [] special requests: [] Specific Issue/Plans Covid status: [] Flu vaccine: [] Tdap vaccine: [] Rhogam: [] LARC form signed: [] Problem list reviewed and updated with the most current plan of care details and appropriate ordersplaced. Relevant counseling for the gestational age provided. Continue routine care and follow up unless otherwise noted in visit notes/problem list details Initial Weight: 256 lb Date -?-?-?-?-?-?-?-?-?-?-?-?- EGA Weight BP Urine Prot -?-?-?-?-?-?-?-?-?-?-?-?- Glucose FHR FuHt Pres Dilation -?-?-?-?-?-?-?-?-?-?-?-?- Effaced St Visit Note 10/19/24 -?-?-?-?-?-?-?-?-?-?-?-?- 7w 4d 256 lb 5 oz (+5 oz) 116/75 -?-?-?-?-?-?-?-?-?-?-?-?- 146 -?-?-?-?-?-?-?-?-?-?-?-?- KW- CRL 1.16cm c ons with formal scan. declines NIPT. NOB labs today Menstrual History Last Menstrual Period: 08/01/24 Reported LMP: definite Normal amount/duration: Yes Frequency in days: 28-30 On hormonal BC at conception: No hCG+: 09/29/24 Antepartum Record Genetic Screening: Congenital Heart Defect: Other, Neural Tube Defect: Other, Hemoglobinopathy Or Carrier: Other, Cystic Fibrosis: Other, Chromosome Abnormality: Other, Ike-Sachs: Other, Hemophilia: Other, Intellectual Disability/Autism: Other, Recurrent Loss/Stillbirth: Other, Other Structural Defect: Other, Other Genetic Disease: Other and Maternal Metabolic Disorder: Other Infection History: Live with someone with TB or Exposed to TB: No, Patient or Partner has history of Genital Herpes: No, Rash or Viral illness since last mentrual period: No, Prior GBS-Infected child: No, History of STD: No, HIV Infection: No, History of Hepatitis: No, Recent travel outside of [place]: No, Concern for hepatitis exposure: No, Varicella immune: No (unknown status, has not had virus) andCovid Vaccinated: No Medical History Medical History: Positive: Hypertension (GHTN near end of (per pt, not seen in old problemlist)), Depression/ depression ( depression- stopped citalopram 3 mos ago-stableObesity), Drug/latex allergies/reactions (Sulfa, adhesive and mike) and Other (obesity) and Negativ e: Diabetes, Heart disease, Auto-immune disorder, Kidney disease/UTI, Neurologic/epilepsy, Psychiatric, Hepatitis/liver disease, Varicosities/phlebitis, Thyroid dysfunction, Trauma/domestic violence,History of blood transfusions, D (Rh) Sensitized, Pulmonary (e.g.,TB,Asthma), Seasonal allergies, Breast, [employer] surgery, Operations/hospitalizations, Anesthetic complications (epidural failed after 2 hours), History of abnormal pap, Uterine anomaly/irma, Infertility, Anti-retroviral treatment and Relevant family history ACOG First Trimester First Trimester: Desire for , Alcohol, Tobacco Cessation, Illicit/Recreational Drug/Substance Use, Intimate Partner Violence, Barriers to care, Unstable Housing, Communication Barriers, Environmental/Work Hazards, Anticipated Course of Care, Nurtrition and weight gain, Toxoplasmosis Precations, Use of Any medications, Sexual activity, Exercise, Dental Care, Sauna/Hot tub use, Seat Belt use, Childbirth classes/Hospital facilities, Travel, Indications for Ultrasound and Screening for Aneuploidy Second Trimester Second Trimester: Signs and Symptoms of Labor, Selecting a care provider, Reproductive Life Planning & Contreception and Care Planning; Discussed Tobacco Cessation, Discussed Depression/Anxiety and Discussed Intimate Partner Violence Third Trimester Third Trimester: Pain Management Plans, Labor support person(s), Immediate Larc, Circumcision preference, Signs and Symptoms of Preeclampsia, Feeding, Education and Family Medical Leave or Disability Forms ROS Const Reports system reviewed and no additional complaints, except as documented, Denies fatigue, Denies headache(s) and Denies lethargy ENT Denies headache(s) Card Reports system reviewed and no additional complaints, except as documented Resp Reports system reviewed and no additional complaints, except as documented GI Reports system reviewed and no additional complaints, except as documented, Denies abdominal pain, Denies constipation, Denies cramping, Denies diarrhea and Denies dyspepsia Reports system reviewed and no additional complaints, except as documented, Denies abnormal vaginalbleeding, Denies difficulty voiding, Denies dyspareunia and Denies dysuria Musc Reports system reviewed and no additional complaints, except as documented Skin/Breast Reports system reviewed and no additional complaints, except as documented Neuro Yes system reviewed and no additional complaints, except as documented and No headache(s) Psych Reports system reviewed and no additional complaints, except as documented, Denies anhedonia and Denies anxiety Endo Reports system reviewed and no additional complaints, except as documented and Denies fatigue Exam Const General: cooperative, healthy appearing and comfortable Neck Neck: normal visual inspection and full ROM Chest Chest palpation & inspection: normal inspection of the chest Breast inspection: normal inspection of the breasts and normal inspection of the axillae Breast palpation: normal palpation of the breasts and normal palpation of the axillae Resp Effort & Inspection: normal respiratory effort and able to speak in complete sentences GI Inspection: normal to inspection Palpation: soft External Female Exam: normal external appearance and normal appearance of the urethra Urethra: normal appearance of the urethra Skin General: no rashes or lesions noted Neuro General: patient alert, patient awake and patient oriented x3 Extrem General: normal to inspection and full ROM Psych Appearance: grossly normal and well kempt Mental Status: mental status grossly normal Mood: congruent mood Affect: normal affect Speech and Movement: speech and movement normal Thought Process: normal Thought Content: normal Coding Level of Care Code Off vis,est,level 4 Diagnoses Obesity affecting O99.210 Supervision of high-risk O09.90 11 weeks gestation of Z3A.11 Weeks of gestation: 11 weeks Varicella vaccination status unknown Z78.9 depression F53.0 Assessment and Plan Assessment and Plan (1) Obesity affecting : Status: Acute Comment: HgbA1c (2) Supervision of high-risk : Status: Acute Comment: , STEPHAN 06/03/25, WILFRED Galvan, Leonardo (3) : Status: Acute Qualifiers: Weeks of gestation: 11 weeks Qualified Code(s): Z3A.11 - 11 weeks gestation of Comment: declined NIPT & Carrier testing (4) Varicella vaccination status unknown: Status: Acute Comment: states has not had virus (5) depression: Status: Acute Comment: Pt stopped taking citalopram 3 mos ago- stable Orders: Orders CBC W/Diff, Automated 10/07/24 O09.90 - Supervision of high risk , unspecified, unspecified trimester Type & Screen 10/07/24 O09.90 - Supervision of high risk , unspecified, unspecified trimester Rubella IgG 10/07/24 O09.90 - Supervision of high risk , unspecified, unspecified trimester Hepatitis C Antibody 10/07/24 O09. - Supervision of high risk , unspecified, unspecifiedtrimester Hepatitis B Surface Antigen 10/07/24 O09. - Supervision of high risk , unspecified, unspecified trimester Culture, Urine 10/07/24 O09. - Supervision of high risk , unspecified, unspecified trimester Syphilis Antibodies 10/07/24 O09.90 - Supervision of high risk , unspecified, unspecified trimester Chlamydia/GC CHRISTOPHER aptima 10/07/24 O09. - Supervision of high risk , unspecified, unspecified trimester HIV 10/07/24 O09. - Supervision of high risk , unspecified, unspecified trimester Hemoglobin A1c 10/07/24 O09. - Supervision of high risk , unspecified, unspecified trimester, O99.210 - Obesity complicating , unspecified trimester Comments Comments: Patient oriented to practice and discussed care expectations and screenings. ACOG book offered to patient. Discussed routine and specially indicated labs if needed- patient consents to testing. See problem list details for plan information. Optional screening including maternal carrier screenings, neural tube defect screening, genetic screening options including quad screen, nuchal translucency, sequential screening, and NIPT screening offered to patient and patient chose: [ ] 10/19/24 1338 s TAWANNAM> Date _ Jerome De Anda CNM Cosigner Signature: Date (if applicable) CC: ~ [facility]08-03-2025 Radiology Diagnostic study note [facility] Imaging Services [address] [place] [address] Transvaginal w/Preg US MR#: [id number] Acct: [id number] Name: LACY MACIAS Rep #: [id number] : 1995 F 29 From: Madi Minaya MD PCP: Care Physician,No Primary Status: REG CLI Study:Transvaginal w/Preg US Date of Exam: 10/08/24 Exam# [id number] Ordering Dr: Mely Silver MD PROCEDURE: TRANSVAGINAL W/PREG US 10/08/2024 REASON FOR EXAM: DATING TECHNIQUE: TRANSVAGINAL W/PREG US COMPARISON: Reviewed FINDINGS Single live intrauterine gestation is noted yolk sac measuring 2.6 mm, crown- rump length 2.1 mm corresponding to a gestational age of 6 weeks and 0 days. Average heart rate 78 beats per minute. Uterus is otherwise unremarkable measuring up to 8.9 cm. Cervix is closed. Moderate fluid in the cul-de-sac is seen. Subchorionic hemorrhage suggested measuring up to 1.2 cm. Bilateral ovaries are normal with preserved symmetric vascular flow. US/Transvaginal w/Preg US IMPRESSION: Single live intrauterine gestation, as described above. Reading Location: [facility] CC: Dr. Mely Castillo MD; No Primary Care Physician ~ Cns: Signed [facility]03-31-2025 Evaluation note* Diagnosis Onset Date Resolution Status Admit Date depression acute Mar 2024 2:55pm Positive home test deleted June 07, 2024 2:55pm [facility] Work Phone: 1(858) 785-449312-29-2024 [facility] Medical Records Department [address] [place] [address] Discharge Summary 03/07/24 0928 MR#: [id number] Acct: [id number] Name: LACY MACIAS Rep #: [id number] : 1995 28 From: Barbie Trevizo CNM PCP: Care Physician,No Primary Status:ADM IN Location: [id number] Providers Date of Admission: 03/04/24 Primary Care Physician: No Primary Care Phys Reason For Visit: VAGINAL DELIVERY Diagnosis Discharge Diagnosis (1) (spontaneous vaginal delivery): Status: Acute Code(s): O80 - Encounter for full-term uncomplicated delivery Plan: s/p PPD # 1 1. routine post delivery care 2. breast feeding- support given, to see today to assist with latch 3. rh positive 4. rubella immune Medications at Discharge Home Medications multivitamin no.47-iron fum 27 mg-folate no.1 1 mg-dha 300 mg capsule (PNV-DHA) 1 cap PO DAILY 07/08/23 famotidine 20 mg tablet (Pepcid) 20 mg PO DAILY #30 tabs 12/25/23 Hospital Course Operations None Procedures None Summary of Care Provided Minutes Spent on Discharge: 15 Hospital Course: presented for IOL for 06/15 BPP resulted in with normal pp course. Physical Exam Const alert and oriented x3 Neck full ROM Lymph Lymphatic: no lymphadenopathy noted Chest inspection of chest normal Resp normal respiratory effort GI normal to inspection, nondistended, normoactive bowel sounds Uterus Palpation: uterus fundus firm (below u) Extremity normal to inspection and full ROM Extremity Narrative: mild pe Skin no rashes or lesions noted Psych mental status grossly normal Weight / BMI Weight Weight: 278 lb 6 oz Body Mass Index (BMI) 43.6 ABG / Lab / Microbiology Data 03/04/24 12:45 03/04/24 13:20 D/C Instructions Discharge Diet: No restrictions May resume sexual activity in: 6 weeks Weight Bearing Status: Full weight bearing Call your doctor if your incision/area has: Sudden Increased Bleeding, Increased Pain/ Swelling and Foul Smelling Discharge Call your doctor if you observe: Fever of 101 or Higher, Numbness or Tingling, Change in Color, Inability to urinate, Inability to have a bowel movement, Using more than 1 pad per hour, Shortness of breath, Dizziness, Fainting spells, Chest pain, Calf discomfort and Uncontrolled pain DC O2, CPAP, BIPAP Needs Home O2 Discharge instructions: No Please Follow Up With: Barbie Trevizo CNM When: 6 weeks , please call office to make an appointment. Congratulations on the of your baby! Meaningful Use Info Meaningful Use Meaningful Use Diagnoses (Choose all that apply): None applicable Ischemic Stroke Statin Dosing Therapy Reference: STATIN DOSE THERAPY REFERENCE: * Patients > 75 years receive moderate or high dose statin therapy. * Patients 75 years or YOUNGER should receive HIGH intensity statin dose unless contraindicated. You will be required to document reason for non-treatment if statin daily dose does not meet guidelines. HIGH DOSE STATIN THERAPY DAILY Atorvastatin > than or = to 40 mg Rosuvastatin > than or = to 20 mg Amlodipine + Atorvastatin > than or = to 2.5/40 mg Ezetimibe + Simvastatin 10/80 mg Simvastatin 80mg Discharge Plan Admission Admit Date/Time: 03/04/24 12:07 Attending Provider: Barbie Trevizo Primary Care Provider: Care Physician,Radha Primary Discharge Orders/Prescriptions Prescriptions: No Action PNV-DHA 27 mg iron-1 mg -300 mg capsule 1 cap PO DAILY famotidine [Pepcid] 20 mg tablet 20 mg PO DAILY Qty: 30 6RF Referrals / Follow Up: Care Physician,Radha Primary [Primary Care Provider] - Disposition Disposition (needs filled in before D/C Order can be placed): Home, Self Care 03/07/24 0930 Cosigner Signature (if applicable): CC: CNKeely Trevizo; No [facility]* Diagnosis Onset Date Resolution Status Admit Date Nausea and vomiting during resolved February 12 9:10am Non-reactive NST (non-stress test) inactive February 12 9:10am Obesity affecting inactive February 13, 2024 9:10am inactive February 13, 2024 9:10am Supervision of high-risk inactive February 12 9:10am Nausea and vomiting during resolved February 12 10:20am Non-reactive NST (non-stress test) inactive February 12 10:20am Obesity affecting inactive February 13, 2024 10:20am inactive February 13, 2024 10:20am Supervision of high-risk inactive February 12 10:20am Nausea and vomiting during resolved February 19 8:23am Non-reactive NST (non-stress test) inactive February 19 8:23am Obesity affecting inactive February 20, 2024 8:23am inactive February 20, 2024 8:23am Supervision of high-risk inactive February 19 8:23am NST (non-stress test) reactive on surveillance resolved February 19 9:26am Nausea and vomiting during resolved February 22 8:50am NST (non-stress test) reactive on surveillance resolved February 22 8:50am Non-reactive NST (non-stress test) inactive February 22 8:50am Obesity affecting inactive February 23, 2024 8:50am inactive February 23, 2024 8:50am Supervision of high-risk inactive February 22 8:50am Nausea and vomiting during resolved February 26 9:14am NST (non-stress test) reactive on surveillance resolved February 26 9:14am Non-reactive NST (non-stress test) inactive February 26 9:14am Obesity affecting inactive February 27, 2024 9:14am inactive February 27, 2024 9:14am Supervision of high-risk inactive February 26 9:14am Nausea and vomiting during resolved March 04 8:26am NST (non-stress test) reactive on surveillance resolved March 04 8:26am Non-reactive NST (non-stress test) inactive March 04 8:26am Obesity affecting inactive March 04, 2024 8:26am inactive March 04, 2024 8:26am Supervision of high-risk inactive March 04 8:26am (spontaneous vaginal delivery) acute March 04 12:07pm Encounter for induction of labor resolved March 04 12:07pm Nausea and vomiting during resolved March 04 12:07pm NST (non-stress test) reactive on surveillance resolved March 04 12:07pm Obesity affecting inactive March 04, 2024 12:07pm inactive March 04, 2024 12:07pm Supervision of high-risk inactive March 04 12:07pm Care and examination of lactating mother noneactive March 08, 2024 9:44am depression acute Feb ruary 2024 10:59am Positive home test acute June 07, 2024 2:55pm depression acute Mar 2024 2:55pm [facility] Work Phone: 1(253) 421-229409-14-2024 Hospital Discharge instructions Patient Education 11/22/2023 11:21:18 7 - Labor and Delivery Outpatient Instructions (CUSTOM) [facility] OUT[facility]IENT HOME-GOING INSTRUCTIONS _X_ You are to follow up with your physician in ___ days/weeks. ACTIVITY ___ Bedrest _X__Activity as tolerated ___ No work/school for ___ days. ___Other DECREASED MOVEMENT __X_ Lie down on your left side, drink some fluids and relax. Count the movements. You need to have 10 movements in 2 hours. __X_ If you do not feel the 10 movements, call your physician. ___ LABOR Call your physician if you experience: __X_ Painful uterine contractions every _5__ minutes for _2__ hours. __X_A gush or continuous trickle of watery discharge. COME TO THE HOSPITAL AND CALL PHYSICIAN IF: __X_ Your abdomen feels continually firm. __X_ *Bleeding is bright red and enough to saturate a pad in one hour or less. *Call 911 or go to the nearest Emergency Room for assistance. Form [id number] D: 02/15 Document Released: 02/24/2006 Document Revised: 02/13/2012 Document Reviewed: 02/24/2006 ExitCare Patient Information 2012 [facility]. Follow Up Care 11/22/2023 10:45:47 With:MELY CASTILLO MD Address: [facility] [address] [place] [address] [address] [place] [address] [phone] When: Unknown Comments:Follow-up as scheduled [facility] 04-23-2024 Hospital Discharge instructions Patient Education 06/30/2023 22:32:21 Bleeding During Early Bleeding During Early Ultrasound can help check the health of your fetus. If you ve had bleeding early in your , you re not alone. Many other women have had early bleeding, too. And in most cases, nothing is wrong. But your healthcare provider still needsto know about it. He or she may [...] vagina. Your healthcare provider also may order aspecial blood test. This test compares your hormone levels in blood samples taken 2 days apart. Theresults can help your healthcare provider learn more [...] your baby will most likely be fine. [phone] [employer] [address] [place] [address]. All rights reserved. This information is not intended as a substitute for professional medical care. Always follow yourhealthcare professional's instructions. 06/30/2023 22:32:19 Abdominal Pain, Early [...] can be signs of a miscarriage or ectopicpregnancy. An ectopic is a very serious problem. At this time it is unclear if your will continue normally, if you will have a miscarriage, or if you could have an ectopic . Below is some information about this. Miscarriage At this time we don t know whether you will have a miscarriage, or if things will clear up and yourpregnancy will continue normally. We understand that this is emotionally difficult. There is littlewe can say to change the way you [...] miscarriage. These activities are usually safe unless youhave pain or bleeding or your doctor tells you to stop. Even minor falls won t cause a miscarriage.Miscarriages happen because things were not developing as [...] The baby cannot survive, and as it growsit can rupture the tube. This can cause internal bleeding and even . Risk factors for an ectopic are: An ectopic in the past Pelvic inflammatory disease, or PID Endometriosis Smoking An IUD Additional tests Because we don t know what s causing your symptoms, you will need more tests to figure out what theproblem is. You may need the following. Ultrasound An ultrasound can usually find a normal as early as 4 to 5 weeks along. If the ultrasounddoes not show the baby inside the uterus, [...] or as directed by your healthcare provider. [phone] [employer] [address] [place] [address]. All rights reserved. This information is not intended as a substitute for professional medical care. Always follow yourhealthcare professional's instructions. Follow Up Care 06/30/2023 18:48:51 With:Follow up with primary care provider Address:Unknown When:2-4 days [facility] 04-22-2024 Note Discharge Instructions Thank you for allowing [facility] to assist you with your healthcare needs. The following is importantdischarge information regarding your hospital visit. Diagnosis from [...] and or supplements as they may interact withyour home medications. Please take this list to [...] is wrong. But your healthcare provider still needsto know about it. He or she may [...] vagina. Your healthcare provider also may order aspecial blood test. This test compares your hormone levels in blood samples taken 2 days apart. Theresults can help your healthcare provider learn more [...] your baby will most likely be fine. [phone] [employer] [address] [place] [address], [place] [address]. All rights reserved. This information is not intended as a substitute for professional medical care. Always follow yourhealthcare professional's instructions. Abdominal Pain and Early The tests you had show that you are , but the exact cause of your pain isn t clear. Some pain and bleeding are common early in . Often they stop, and you can go on to have a normal and baby. Other times the pain or bleeding can be signs of a miscarriage or ectopicpregnancy. An ectopic is a very serious problem. At this time it is unclear if your will continue normally, if you will have a miscarriage, or if you could have an ectopic . Below is some information about this. Miscarriage At this time we don t know whether you will have a miscarriage, or if things will clear up and yourpregnancy will continue normally. We understand that this is emotionally difficult. There is littlewe can say to change the way you [...] miscarriage. These activities are usually safe unless youhave pain or bleeding or your doctor tells you to stop. Even minor falls won t cause a miscarriage.Miscarriages happen because things were not developing as [...] The baby cannot survive, and as it growsit can rupture the tube. This can cause internal bleeding and even . Risk factors for an ectopic are: An ectopic in the past Pelvic inflammatory disease, or PID Endometriosis Smoking An IUD Additional tests Because we don t know what s causing your symptoms, you will need more tests to figure out what theproblem is. You may need the following. Ultrasound An ultrasound can usually find a normal as early as 4 to 5 weeks along. If the ultrasounddoes not show the baby inside the uterus, [...] or as directed by your healthcare provider. [phone] [employer] [address] [place] [address], [place] [address]. All rights reserved. This information is not intended as a substitute for professional medical care. Always follow yourhealthcare professional's instructions. Additional Information VACCINATE! IT SAVES LIVES! Members of the community who have not yet received the COVID-19 vaccine and would like to receive it can visit one of [facility] vaccine clinics. There are many vaccine clinic locations within the [facility]. For locations and available times, please visit www.gettheshot.coronavirus.[place].gov/. It is important to note that some COVID mobile vaccine clinics are held outdoors and may be canceled in rainy or stormy conditions. To learn more about pediatric vaccinations (ages 5-11), we invite you to visit the [facility] webpage. [email or web address].[email or web address]/pages/[email or web address]-Cislz-[email or web address]-[email or web address]-Twe stions.htmlTo learn more about the COVID-19 vaccine, we invite you to visit the CDC website for a list of frequently asked questions. https://www.cdc.gov/coronavirus/2019-ncov/vaccines/faq.html [facility] Patient Portal Access Instructions: Stay connected with your healthcare team and access your personal medical information anytime with the [facility] Patient Portal. If you would like a full copy of your medical records please contact the [facility] Medical Records Department Friday through Friday between 8a.m. and 4:30p.m. Please follow the directions below to access the portal: 1.Access the email account you provided upon registration to the hospital.2.Look for an invitation email from [facility].3.Open the email and access the invitation link: Accept Invitation to [employer]4.Fill in the required purvis to create your [...] you will allow to register on the [facility] Patient Portal for access to your information. You can also access the [employer] Patient Portal on the Zapoint. Simply click on Health Records under [employer] and then click on the Yoni logo. HOW TO SAFELY DISPOSE OF PRESCRIPTION MEDICATIONS Please use one of the following methods to safely dispose of your unused medications. 1.Use a drug disposal kit: the drug disposal pouch allows you to safely discard your old and unuseddrugs. Ask your nurse to give you one when you are discharged.2.Visit a local take-back location: Many local pharmacies and police departments have programs that collect old and unwanted prescriptiondrugs. Call your local pharmacy or go to http://[employer].1000museums.com/9O5Nz7f to find one close to you.3.Make use of household items: Use cat litter or old coffee grounds to dispose medications if other options arenot available. Mix your drugs with these household products, seal them in an airtight container andthrow it into the garbage. Call [facility]: [phone] to be sure your drugs can be [...] drowsiness, such as benzodiazepines, also known as benzos,including diazepam and alprazolam, muscle relaxants or sleep aids. Never sell or share prescriptionopioids. This is illegal. Store opioids in a secure place and out of reach of others (including children, family, friends and visitors). The last page(s) of this document has been signed and retained as a CHART COPY Signatures Patient Education Materials Bleeding During Early Abdominal Pain, Early Medication Leaflets My discharge plan and instructions have been reviewed and explained to me and I,LACY MACIAS understand my current condition and have read and understand these discharge instructions. I have received a written copy of the plan/instructions. If I have questions, I am aware that I should contactmy doctor. Patient/Operations Support Analyst Signature: Date/Time: Relationship to Patient: Witness Name/Signature: Date/Time: [facility]04-22-2024 Evaluation + Plan note Diagnostic Tests Pending * Urine test (LAB) 06/30/23 [facility] 08-22-2023 Emergency department Note* Brigette Taylor RN - 10/29/2022 9:05 PM EDT Pt discharged to home by CIRO Vera. No IV in place. Brigette Taylor RN 10/29/22 2105 [facility] Emergency department Note* Brigette Taylor RN - 10/29/2022 9:05 PM EDT Pt discharged to home by CIRO Vera. No IV in place. Brigette Taylor RN 10/29/222104 * Devendra Donovan RN - 10/29/2022 8:56 PM EDT Jody TANNER bedside. Devendra Donovan RN 10/29/222055 * Devendra Donovan RN - 10/29/2022 8:56 PM EDT Pt A+Ox4. Pt has even and equal chest rise. Pt denies any needs at this time. Devendra Donovan RN 10/29/222055 * Mabel Malloy RN - 10/29/2022 5:01 PM EDT Report given to MALDONADO Templeton, ED nurse document imaging manager. Mabel Malloy RN 10/29/22 2740 * Mabel Malloy RN - 10/29/2022 4:53 PM EDT Pt to go to [facility] ED for further evaluation. Pt left amb in satisfactory to go by private vehicle with ride. Mabel Malloy RN 10/29/22 6348 * Mabel Malloy RN - 10/29/2022 4:48 PM EDT Pt had urine drug screen done per company policy s/p work injury. Mabel Malloy RN 10/29/22 4389 * Emily Silva MD - 10/29/2022 3:16 PM EDT EMERGENCY DEPARTMENT ENCOUNTER Pt Name: Lacy Cardenas Birthdate 1995 Date of evaluation: 10/29/2022 ED Provider: Emily Silva MD CHIEF COMPLAINT Chief Complaint Patient presents with Eye Problem Pt states was at work at [employer] and had safety eyewear in place. Possible foreign body ordust in eye at approx 1505 today. HISTORY OF PRESENT ILLNESS (Location/Symptom, Timing/Onset, Context/Setting, Quality, Duration, Modifying Factors, Severity) Note limiting factors. HPI Lacy Cardenas is a 27 y.o. female who presents to the emergency department for concern for foreignbody in her eye. 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 Was at work when something flew into [facility]. 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 Unfortunately donot feel comfortable trying to remove this foreign body so the plan will be to transfer her to [facility] emergency department in order to be evaluated by the national investigative producer there. Patient is agreeable to this. Will be transferred via private vehicle that a coworker will drive. I Emily Moftakhar, MD am the asset protection specialist of record. FINAL IMPRESSION 1. Foreign body of right eye, initial encounter DISPOSITION Transfer To [facility] Ed 10/29/2022 03:51:50 PM PATIENT REFERRED TO: [...] are any questions or concerns please feel freeto contact the dictating provider for clarification.) Emily Silva MD (electronically signed) Emergency Medicine Provider Emily Silva MD 10/29/22 1614 * Hilary Alfred MD - 10/29/2022 3:16 PM EDT Emergency Department Encounter [facility] EMERGENCY DEPT Patient: Lacy Cardenas : 1995 Date of Evaluation: 10/29/2022 [...] of this encounter. Brief HPI: In brief, Lacy Cardenas is a 27 y.o. female that [...] medial right eyelid, she was transferred from [facility] for an ophthalmology consult. Focused Physical exam: [...] dictating provider for clarification Hilary Alfred MD [facility] Hilary Alfred MD 10/29/22 184 * Salma Galvez RN - 10/29/2022 3:16 PM EDT Bed: 15 Expected date: 10/29/22 Expected time: 7:09 PM Means of arrival: Comments: triage Salma Galvez RN 10/29/221913 documented in this [address]22-2023 Hospital Discharge instructions* Discharge Instructions* JADEN Jauregui CNP - 10/29/2022 9:00 PM EDT Buy Refresh eye drops for eye irritation documented in this [address]22-2023 Emergency department Note* Devendra Donovan RN - 10/29/2022 8:56 PM EDT Jody TANNER bedside. Devendra Donovan RN 10/29/222055 [id number] Emergency department Note* Devendra Donovan RN - 10/29/2022 8:56 PM EDT Pt A+Ox4. Pt has even and equal chest rise. Pt denies any needs at this time. Devendra Donovan RN 10/29/222055 [id number] History of Present illness Narrative* Александр Rinaldi - 10/29/2022 7:50 PM EDT ED ophthalmology consult note Present illness: 27 yo female that at work today, she thinks something got into right eye(OD). Complains of foreign body sensation which was [...] eye (OD) is normal. No conjunctival injection. Slitlamp examination of cornea OD reveals clear cornea without evidence of foreign body. No fluoresceindye uptake of cornea or conjunctiva right eye [...] [facility] and instill into right eye (OD) if she experiences any further irritation in right eye. documented in this [facility]08-22-2023 NotePt to go to [facility] ED for further evaluation. Pt left amb in satisfactory to go by private vehicle with ride. Mabel Malloy RN 10/29/[address] [place], [place] 5637508-22-2023 Emergency department Note* Mabel Malloy RN - 10/29/2022 5:01 PM EDT Report given to MALDONADO Templeton, ED nurse document imaging manager. Mabel Malloy RN 10/29/22 1705 [id number] Emergency department Note* Mabel Malloy RN - 10/29/2022 4:53 PM EDT Pt to go to [facility] ED for further evaluation. Pt left amb in satisfactory to go by private vehicle with ride. Mabel Malloy RN 10/29/22 [address] [id number] Emergency department Note* Mabel Malloy RN - 10/29/2022 4:48 PM EDT Pt had urine drug screen done per company policy s/p work injury. Mabel Malloy RN 10/29/22 1649 [id number] Emergency department Note* Salma Galvez RN - 10/29/2022 3:16 PM EDT Bed: 15 Expected date: 10/29/22 Expected time: 7:09 PM Means of arrival: Comments: triage Salma Galvez RN 10/29/22 7504 [id number] Physician Emergency department Note* Emily Silva MD - 10/29/2022 3:16 PM EDT EMERGENCY DEPARTMENT ENCOUNTER Pt Name: Lacy Cardenas Birthdate 1995 Date of evaluation: 10/29/2022 ED Provider: Emily Silva MD CHIEF COMPLAINT Chief Complaint Patient presents with Eye Problem Pt states was at work at [employer] and had safety eyewear in place. Possible foreign body ordust in eye at approx 1505 today. HISTORY OF PRESENT ILLNESS (Location/Symptom, Timing/Onset, Context/Setting, Quality, Duration, Modifying Factors, Severity) Note limiting factors. HPI Lacy Cardenas is a 27 y.o. female who presents to the emergency department for concern for foreignbody in her eye. 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 Was at work when something flew into here. 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 Unfortunately donot feel comfortable trying to remove this foreign body so the plan will be to transfer her to [facility] emergency department in order to be evaluated by the national investigative producer there. Patient is agreeable to this. Will be transferred via private vehicle that a coworker will drive. I Emily Silva MD am the asset protection specialist of record. FINAL IMPRESSION 1. Foreign body of right eye, initial encounter DISPOSITION Transfer To [facility] Ed 10/29/2022 03:51:50 PM PATIENT REFERRED TO: [...] are any questions or concerns please feel freeto contact the dictating provider for clarification.) Emily Silva MD (electronically signed) Emergency Medicine Provider Emily Silva MD 10/29/22 1614 [id number] Physician Emergency department Note* Hilary Alfred MD - 10/29/2022 3:16 PM EDT Emergency Department Encounter [facility] EMERGENCY DEPT Patient: Lacy Cardenas : 1995 Date of Evaluation: 10/29/2022 [...] of this encounter. Brief HPI: In brief, Lacy Cardenas is a 27 y.o. female that [...] medial right eyelid, she was transferred from [facility] for an ophthalmology consult. Focused Physical exam: [...] dictating provider for clarification Hilary Alfred MD [employer] [facility] Hilary Alfred MD 10/29/22 [address] [employer] Work Phone: [phone] 728-663703-01-2023 Hospital Discharge instructions Patient Education 05/08/2022 12:40:10 [...] upon you later. Perhaps you ll grieve becausethe future you hoped for is lost. Grief [...] have children, spend extra time with them. 3002-3324 [employer] [address] [place] [address], [place] [address]. All rights reserved. This information is not intended as a substitute for professional medical care. Always follow yourmer[facility] hospitalcare professional's instructions. 05/08/2022 12:40:05 Understanding Miscarriage: Possible [...] a bicycle Wishing away or denying a 3026-1203 [employer] [address] [place] [address]. All rights reserved. This information is not intended as a substitute for professional medical care. Always follow yourhealthcare professional's instructions. Follow Up Care 05/08/2022 10:21:20 With:LICHA CASEY APRN-TAWANNAM Address: [address], [address] Clemente Benavidez, my [employer] [place] [place] [address]- [phone] When:2-4 days With:Go to emergency room if symptoms worsen Address:Unknown When:2-4 days [facility] 03-01-2023 Note Discharge Instructions Thank you for allowing [facility] to assist you with your healthcare needs. The following is importantdischarge information regarding your hospital visit. Diagnosis from [...] LICHA CASEY When Within 2-4 days Where: [address], [address] Clemente Benavidez, my [employer] [place] [place] [address]- [phone] Follow Up with Go to emergency room if symptoms worsen When Within 2-4 days Allergies sulfa drugs Medications Please ask your primary doctor or pharmacist before taking any other medication not listed, including over the counter drugs, herbal medications, vitamins and or supplements as they may interact withyour home medications. Please take this list to [...] upon you later. Perhaps you ll grieve becausethe future you hoped for is lost. Grief [...] children, spend extra time with them. [employer] [address] [place] [address]. All rights reserved. This information is not intended as a substitute for professional medical care. Always follow yourhealthcare professional's instructions. Understanding Miscarriage: Possible Causes Miscarriage [...] a bicycle Wishing away or denying a [employer]. [address] [place] [address]. All rights reserved. This information is not intended as a substitute for professional medical care. Always follow yourhealthcare professional's instructions. Additional Information VACCINATE! IT SAVES LIVES! Members of the community who have not yet received the COVID-19 vaccine and would like to receive it can visit one of [facility] vaccine clinics. There are many vaccine clinic locations within the [facility]. For locations and available times, please visit www.gettheshot.coronavirus.[place].gov/. It is important to note that some COVID mobile vaccine clinics are held outdoors and may be canceled in rainy or stormy conditions. To learn more about pediatric vaccinations (ages 5-11), we invite you to visit the [facility] webpage. https://www.[employer].org/pages/9721-Uvgbx-Jdgixnkrvut-Cvmuyrudtg-Bfipm-Mvl stions.htmlTo learn more about the COVID-19 vaccine, we invite you to visit the CDC website for a list of frequently asked questions. https://www.cdc.gov/coronavirus/2019-ncov/vaccines/faq.html [facility] Patient Portal Access Instructions: Stay connected with your healthcare team and access your personal medical information anytime with the [employer] Patient Portal. If you would like a full copy of your medical records please contact the [facility] Medical Records Department Friday through Friday between 8a.m. and 4:30p.m. Please follow the directions below to access the portal: 1.Access the email account you provided upon registration to the [facility].2.Look for an invitation email from [facility].3.Open the email and access the invitation link: Accept Invitation to [employer]4.Fill in the required purvis to create your account. Sign into www.[employer] with your username and password that you [...] you will allow to register on the [employer] Patient Portal for access to your information. You can also access the [facility] One[employer] Patient Portal on the Zapoint. Simply click on Health Records under [employer] and then click on the [employer]x logo. HOW TO SAFELY DISPOSE OF PRESCRIPTION MEDICATIONS Please use one of the following methods to safely dispose of your unused medications. 1.Use a drug disposal kit: the drug disposal pouch allows you to safely discard your old and unuseddrugs. Ask your nurse to give you one when you are discharged.2.Visit a local take-back location: Many local pharmacies and police departments have programs that collect old and unwanted prescriptiondrugs. Call your local pharmacy or go to http://[employer].1000museums.com/2A2No8e to find one close to you.3.Make use of household items: Use cat litter or old coffee grounds to dispose medications if other options arenot available. Mix your drugs with these household products, seal them in an airtight container andthrow it into the garbage. Call [facility]: [phone] to be sure your drugs can be [...] drowsiness, such as benzodiazepines, also known as benzos,including diazepam and alprazolam, muscle relaxants or sleep aids. Never sell or share prescriptionopioids. This is illegal. Store opioids in a secure place and out of reach of others (including children, family, friends and visitors). The last page(s) of this document has been signed and retained as a CHART COPY Signatures Patient Education Materials Understanding Miscarriage: Emotions Understanding Miscarriage: Possible Causes Medication Leaflets My discharge plan and instructions have been reviewed and explained to me and I,LACY CARDENAS understand my current condition and have read and understand these discharge instructions. I have received a written copy of the plan/instructions. If I have questions, I am aware that I should contactmy doctor. Patient/Operations Support Analyst Signature: Date/Time: Relationship to Patient: Witness Name/Signature: Date/Time: [facility]03-01-2023 NoteHNO ID: [id number] Author: Indira Salazar (Aneta) ANETA Rapp Service: ? Author Type: Physician Test Borer Helper Type: Progress Notes Filed: 05/08/2022 9:56 AM Note Text: Lacy Cardenas is an 26 year old female [...] mood and affect is appropriate Pelvic deferred Lacy was seen today for vaginal problem. Diagnoses and all orders for this visit: , unspecified gestational age Pelvic pain Vaginal bleeding I do feel based on the patient's history and physical exam further evaluation is warranted in the emergency department. Therefore patient was sent to [facility] emergency department for further evaluation and management. Indira Rapp PA-C, ANETA Return for To ER for evaluation and management.[facility]03-01-2023 History of Present illness Narrative* Indira Salazar (Aneta) ANETA Rapp - 05/08/2022 9:53 AM EST Lacy Cardenas is an 26 year old female presenting with Vaginal Problem (Patient states that two days ago she had a positvie at home test //She states she started spotting last night /Shestates she took an at home test this [...] moves extremities without pain or limitation. Pulses areequal bilaterally. Skin: Skin is warm and dry. Neuro: Alert and oriented x3. Speech is articulate and fluent. Psych: Patient's mood and affect is appropriate Pelvic deferred Lacy was seen today for vaginal problem. Diagnoses and all orders for this visit: , unspecified gestational age Pelvic pain Vaginal bleeding I do feel based on the patient's history and physical exam further evaluation is warranted in the emergency department. Therefore patient was sent to [facility] emergency department for further evaluation and management. Indira Rapp PA-C, ANETA Return for To ER for evaluation and management. [facility] History of Present illness Narrative* Yumiko Gavin MD - 01/01/2021 2:01 PM EDT DATE OF SERVICE: 12/29/2020 REASON OF VISIT: [...] visit. Review of other systems normal. ALLERGIES: MIKE, ADHESIVES, SULFA. MEDICATIONS: Leftover amoxicillin. PHYSICAL EXAMINATION: [...] Patient understands and agrees. Yumiko Gavin MD [id number] [facility] File#: [id number] END OF DOCUMENT / CHANGE LOG FOLLOWS Last Edited By Elec. Signed By Yumiko Gavin MD #PAWPR Yumiko Gavin MD #PAWPR on 01/09/2021 19:40 ET on 01/09/2021 19:40 ET Revision Number - 2 ^^^ Verified/Reviewed by 01/09/211939 [facility] PATIENT NAME: LACY CARDENAS [address] [facility] [address] [facility] MEDICAL REC #: [id number] [place] [address] [facility] REPORT STATCARE PHYSICIAN [facility] note No data available for this section [facility] Evaluation note* Diagnosis , unspecified gestational age- Primary Pelvic pain Vaginal bleeding Other specified noninflammatory disorder of vagina documented in this encounter [facility] note* Diagnosis Foreign body of right eye, initial encounter- Primary documented in this encounter [facility] noteNo assessment information availableWBlanchard [facility] Work Phone: Evaluation note* Diagnosis Onset Date Resolution Status Admit Date Obesity affecting acute October 19, 2024 1:04pm depression acute Oct 1:04pm acute October 19, 025 1:04pm Supervision of high-risk acute October 19 1:04pm Varicella vaccination status unknown acute October 19 1:04pm [facility] Work Phone: Progress note No data available for this section [facility] Progrrib note Author Jerome De Anda [facility] Note Date/Time October 19, 2024 1: 38pm [facility] [address] [place] [address], [address] [place] [address] OFFICE VISIT Date of Service: 10/19/24 MR#: [id number] Acct: [id number] Name: LACY MACIAS Rep #: [id number] : 1995 Provider: JAN De Anda Age/Sex: 29/F Location: [facility] Status: Signed Intake Vital Signs 06/07/24 15:04 10/19/24 13:07 Height 5 ft 7 in 5 ft 7 in Weight: 256 lb 5 oz BMI 40.1 BP 116/75 Intake Visit Reasons: *EST* NOB LMP 08/05, STEPHAN 05/12 Chief Complaint: New OB Clinician Oncology Required: No Is patient in pain?: No Allergies mike Allergy (Severe, Verified 10/19/24 13:05) Anaphylaxis adhesive Allergy (Intermediate, Verified 10/19/24 13:05) Rash Sulfa (Sulfonamide Antibiotics) Adverse Reaction (Intermediate, Verified 10/19/24 13:05) Diarrhea Medications ?Medication ?Instructions ?Recorded ?Confirmed ?Type multivit-min no.71-iron fum 28 cap PO 10/07/24 5 History mg-folate no.1 1 mg-dha 300 mg capsule (PNV-Waldo) Last Menstrual Period: 08/01/24 PFSH PFSH Medical History (spontaneous vaginal delivery) Chemical Social History adopted: No household members: spouse and family housing: house number of children: 1 current occupational status: employed current occupation: [employer] current occupational exposures/hazards: Yes (extreme heat) pets and animals: Yes (Avoid litterbox) pets and animals: cat(s) and other details: [facility] history of recent travel: Yes ([place]) out of state: Yes out of country: No sexually active: Yes Smoking Status: Never smoker alcohol intake: current alcohol intake frequency: holidays/special occasions only details: not while substance use type: does not use well-balanced diet: daily or most days caffeine: No eating out: rarely or never during the past year weight has: increased > 10 lbs what type of physical activity do you participate in: walking frequency: 5-6 times per week duration: 60-90 minutes/day janae/jewish: Mandaeism seatbelt use: always do you feel safe at home: Yes additional social history: Leonardo History 3 Elective abortions Hx Para 1 Spontaneous abortions 1 Hx # Term Pregnancies 1 Ectopic pregnancies Hx # Pregnancies Multiple births # of living children 1 Past Pregnancies Del. Date Name GA/Weeks Outcome Route Bth Weight Infant Gen Labor Lgth Anesthesia Del Locatn Provider FOB 05/09/22 5 spontaneous 03/05/24 Cole 39 live - full term 7lb 5oz Male ep idural [facility] Barbie Patterson Delivery Date: 03/05/24 Last Updated by: Salma Lynn IOL BPP 06/15 HPI *EST* NOB LMP 08/05, STEPHAN 05/12 Details: LACY MACIAS is a 29 year old who presents for New OB visit. OB Visit STEPHAN Calculator Estimated Delivery Date Method Current WG Current Estimate 06/03/25 Ultrasound #1 7w 4d Other Estimates 05/08/25 LMP (Certain) 11w 2d 06/05/25 Ultrasound #2 7w 2d Comments: HIV: Urine Culture: Sequential Screen: NIPT Screen: Estimated Due Date: 05/08/25 Expected Delivery Route/Plan Labor Preferences- CB/BF classes: [] labor support person: [] labor intervention preferences: [] pain management options preferred: [] cut cord/dad catch: [] : [] PP control planned: [] discussed possible routes of delivery and associated risks: [] special requests: [] Specific Issue/Plans Covid status: [] Flu vaccine: [] Tdap vaccine: [] Rhogam: [] LARC form signed: [] Problem list reviewed and updated with the most current plan of care details and appropriate orders placed. Relevant counseling for the gestational age provided. Continue routine care and follow up unless otherwise noted in visit notes/problem list details Initial Weight: 256 lb Date -?-?-?-?-?-?-?-?-?-?-?-?- EGA Weight BP Urine Prot -?-?-?-?-?-?-?-?-?-?-?-?- Glucose FHR FuHt Pres Dilation -?-?-?-?-?-?-?-?-?-?-?-?- Effaced St Visit Note 10/19/24 -?-?-?-?-?-?-?-?-?-?-?-?- 7w 4d 256 lb 5 oz (+5 oz) 116/75 -?-?-?-?-?-?-?-?-?-?-?-?- 146 -?-?-?-?-?-?-?-?-?-?-?-?- KW- CRL 1.16cm c ons with formal scan. declines NIPT. NOB labs today Menstrual History Last Menstrual Period: 08/01/24 Reported LMP: definite Normal amount/duration: Yes Frequency in days: 28-30 On hormonal BC at conception: No hCG+: 09/29/24 Antepartum Record Genetic Screening: Congenital Heart Defect: Other, Neural Tube Defect: Other, Hemoglobinopathy Or Carrier: Other, Cystic Fibrosis: Other, Chromosome Abnormality: Other, Ike-Sachs: Other, Hemophilia: Other, Intellectual Disability/Autism: Other, Recurrent Loss/Stillbirth: Other, Other Structural Defect: Other, Other Genetic Disease: Other and Maternal Metabolic Disorder: Other Infection History: Live with someone with TB or Exposed to TB: No, Patient or Partner has history of Genital Herpes: No, Rash or Viral illness since last mentrual period: No, Prior GBS-Infected child: No, History of STD: No, HIV Infection: No, History of Hepatitis: No, Recent travel outside of [place]: No, Concern for hepatitis exposure: No, Varicella immune: No (unknown status, has not had virus) and Covid Vaccinated: No Medical History Medical History: Positive: Hypertension (GHTN near end of (per pt, not seen in old problem list)), Depression/ depression ( depression- stopped citalopram 3 mos ago-stableObesity), Drug/latex allergies/reactions (Sulfa, adhesive and mike) and Other (obesity) and Negative: Diabetes, Heart disease, Auto-immune disorder, Kidney disease/UTI, Neurologic/epilepsy, Psychiatric, Hepatitis/liver disease, Varicosities/phlebitis, Thyroid dysfunction, Trauma/domestic violence, History of blood transfusions, D (Rh) Sensitized, Pulmonary (e.g.,TB,Asthma), Seasonal allergies, Breast, [employer] surgery, Operations/hospitalizations, Anesthetic complications (epidural failed after 2 hours), History of abnormal pap, Uterine anomaly/irma, Infertility, Anti- retroviral treatment and Relevant family history ACOG First Trimester First Trimester: Desire for , Alcohol, Tobacco Cessation, Illicit/Recreational Drug/Substance Use, Intimate Partner Violence, Barriers to care, Unstable Housing, Communication Barriers, Environmental/Work Hazards, Anticipated Course of Care, Nurtrition and weight gain, Toxoplasmosis Precations, Use of Any medications, Sexual activity, Exercise, Dental Care, Sauna/Hot tub use, Seat Belt use, Childbirth classes/Hospital facilities, Travel, Indications for Ultrasound and Screening for Aneuploidy Second Trimester Second Trimester: Signs and Symptoms of Labor, Selecting a care provider, Reproductive Life Planning & Contreception and Care Planning; Discussed Tobacco Cessation, Discussed Depression/Anxiety and Discussed Intimate Partner Violence Third Trimester Third Trimester: Pain Management Plans, Labor support person(s), Immediate Larc, Circumcision preference, Signs and Symptoms of Preeclampsia, Infant Feeding, Education and Family Medical Leave or Disability Forms ROS Const Reports system reviewed and no additional complaints, except as documented, Denies fatigue, Denies headache(s) and Denies lethargy ENT Denies headache(s) Card Reports system reviewed and no additional complaints, except as documented Resp Reports system reviewed and no additional complaints, except as documented GI Reports system reviewed and no additional complaints, except as documented, Denies abdominal pain, Denies constipation, Denies cramping, Denies diarrhea and Denies dyspepsia Reports system reviewed and no additional complaints, except as documented, Denies abnormal vaginal bleeding, Denies difficulty voiding, Denies dyspareunia and Denies dysuria Musc Reports system reviewed and no additional complaints, except as documented Skin/Breast Reports system reviewed and no additional complaints, except as documented Neuro Yes system reviewed and no additional complaints, except as documented and No headache(s) Psych Reports system reviewed and no additional complaints, except as documented, Denies anhedonia and Denies anxiety Endo Reports system reviewed and no additional complaints, except as documented and Denies fatigue Exam Const General: cooperative, healthy appearing and comfortable Neck Neck: normal visual inspection and full ROM Chest Chest palpation & inspection: normal inspection of the chest Breast inspection: normal inspection of the breasts and normal inspection of the axillae Breast palpation: normal palpation of the breasts and normal palpation of the axillae Resp Effort & Inspection: normal respiratory effort and able to speak in complete sentences GI Inspection: normal to inspection Palpation: soft External Female Exam: normal external appearance and normal appearance of the urethra Urethra: normal appearance of the urethra Skin General: no rashes or lesions noted Neuro General: patient alert, patient awake and patient oriented x3 Extrem General: normal to inspection and full ROM Psych Appearance: grossly normal and well kempt Mental Status: mental status grossly normal Mood: congruent mood Affect: normal affect Speech and Movement: speech and movement normal Thought Process: normal Thought Content: normal Coding Level of Care Code Off vis,est,level 4 Diagnoses Obesity affecting O99.210 Supervision of high-risk O09.90 11 weeks gestation of Z3A.11 Weeks of gestation: 11 weeks Varicella vaccination status unknown Z78.9 depression F53.0 Assessment and Plan Assessment and Plan (1) Obesity affecting : Status: Acute Comment: HgbA1c (2) Supervision of high-risk : Status: Acute Comment: , STEPHAN 06/03/25, PC Cole, Leonardo (3) : Status: Acute Qualifiers: Weeks of gestation: 11 weeks Qualified Code(s): Z3A.11 - 11 weeks gestation of Comment: declined NIPT & Carrier testing (4) Varicella vaccination status unknown: Status: Acute Comment: states has not had virus (5) depression: Status: Acute Comment: Pt stopped taking citalopram 3 mos ago- stable Orders: Orders CBC W/Diff, Automated 10/07/24 O09.90 - Supervision of high risk , unspecified, unspecified trimester Type & Screen 10/07/24 O09.90 - Supervision of high risk , unspecified, unspecified trimester Rubella IgG 10/07/24 O09.90 - Supervision of high risk , unspecified, unspecified trimester Hepatitis C Antibody 10/07/24 O09.90 - Supervision of high risk , unspecified, unspecified trimester Hepatitis B Surface Antigen 10/07/24 O09.90 - Supervision of high risk , unspecified, unspecified trimester Culture, Urine 10/07/24 O09.90 - Supervision of high risk , unspecified, unspecified trimester Syphilis Antibodies 10/07/24 O09.90 - Supervision of high risk , unspecified, unspecified trimester Chlamydia/GC CHRISTOPHER aptima 10/07/24 O09.90 - Supervision of high risk , unspecified, unspecified trimester HIV 10/07/24 O09.90 - Supervision of high risk , unspecified, unspecified trimester Hemoglobin A1c 10/07/24 O09.90 - Supervision of high risk , unspecified, unspecified trimester, O99.210 - Obesity complicating , unspecified trimester Comments Comments: Patient oriented to practice and discussed care expectations and screenings. ACOG book offered to patient. Discussed routine and specially indicated labs if needed- patient consents to testing. See problem list details for plan information. Optional screening including maternal carrier screenings, neural tube defect screening, genetic screening options including quad screen, nuchal translucency, sequential screening, and NIPT screening offered to patient and patient chose: [ ] 10/19/24 1338 <Electronically signed by Jerome harris CNM> Date _ Jreome De Anda CNM Cosigner Signature: Date (if applicable) CC: ~ [facility] Work Phone: Reason for referral (narrative)No reason for referral information availableW[facility] Work Phone: Summary Purpose Family History No Family History Records FoundNo Family History Records FoundNo Family History Records Found No data available for this section No Family History Records FoundNo Family History Records Found No data available for this section No Family History Records FoundNo Family History Records Found Advance Directives No Advanced Directives Records Found Advance Directive Response Recorded Date/ Time Living Will No March 04, 2 024 2:26pm Do you have a Healthcare Power of Hedis Nurse? No March 04, 2024 2:26pm Chief Complaint and Reason for Visit Chief Complaint E ORDER Chief Complaint Admit Date 36 WK OB February 13, 2024 9 :10am BPP February 13, 2024 1 0:20am BPP February 13, 2024 1 2:11pm 37 WK OB February 20, 2024 8:23am NST February 20, 2024 9:26am NST February 21, 2024 10:58am EXTENDED MONITORING/OBESITY February 8:50am EXTENDED MONITORING/OBESITY February 10:21am 38 WK ob February 27, 2024 9:14am OBESITY March 01, 2024 7:40am 39 WK OB March 04, 2024 8:26am VAGINAL DELIVERY March 04, 2024 12:07pm LABOR AND DELIVERY March 04, 2024 1:18pm LABOR AND DELIVERY March 05, 2024 12:28am VAGINAL DELIVERY March 06, 2024 9:41am VAGINAL DELIVERY March 07, 2024 9:28am assessment March 08, 2024 9:44am 6 wk ppv April 16, 2024 1 0:59am 6 week follow-up PP depression May 2:55pm Reason for Visit Admit Date Nausea and vomiting during Feb [facility]2023 9:10am Non-reactive NST (non-stress test) [facility] 2023 9:10am Obesity affecting February 9:10am February 13, 2024 9 :10am Supervision of high-risk [facility] 2023 9:10am Nausea and vomiting during Feb 10:20am Non-reactive NST (non-stress test) [facility] 2023 10:20am Obesity affecting February 10:20am February 13, 2024 1 0:20am Supervision of high-risk [facility] 2023 10:20am Nausea and vomiting during Feb [facility]2023 8:23am Non-reactive NST (non-stress test) [facility] 2023 8:23am Obesity affecting February 8:23am February 20, 2024 8:23am Supervision of high-risk [facility] 2023 8:23am NST (non-stress test) reactive on surveillance February 20, 2024 9:26am Nausea and vomiting during Feb [facility]2023 8:50am NST (non-stress test) reactive on surveillance February 23, 2024 8:50am Non-reactive NST (non-stress test) [facility] 2023 8:50am Obesity affecting February 8:50am February 23, 2024 8:50am Supervision of high-risk [facility] 2023 8:50am Nausea and vomiting during Feb 9:14am NST (non-stress test) reactive on surveillance February 27, 2024 9:14am Non-reactive NST (non-stress test) [facility] 2023 9:14am Obesity affecting February 9:14am February 27, 2024 9:14am Supervision of high-risk [facility] 2023 9:14am Nausea and vomiting during Feb 8:26am NST (non-stress test) reactive on surveillance March 04, 2024 8:26am Non-reactive NST (non-stress test) [facility] 2023 8:26am Obesity affecting February 8:26am March 04, 2024 8:26am Supervision of high-risk [facility] 2023 8:26am (spontaneous vaginal delivery) [facility] 2023 12:07pm Encounter for induction of labor [facility] 2023 12:07pm Nausea and vomiting during Feb 12:07pm NST (non-stress test) reactive on surveillance March 04, 2024 12:07pm Obesity affecting February 12:07pm March 04, 2024 12:07pm Supervision of high-risk [facility] 2023 12:07pm Care and examination of lactating mother March 08, 2024 9:44am depression April 16, 2024 10:59am Positive home test June 07, 2024 2:55pm depression June 07, 2024 2 :55pm Chief Complaint Admit Date 6 week follow-up PP depression May 2:55pm Reason for Visit Admit Date depression June 07, 2024 2 :55pm Positive home test June 07, 2024 2:55pm Chief Complaint Admit Date DATING October 08, 2024 4:1 1pm Chief Complaint Admit Date DATING October 08, 2024 4:1 1pm *EST* NOB LMP 08/05, STEPHAN 3/October 19, 2024 1:04pm Reason for Visit Admit Date Obesity affecting October 19, 2024 1:04pm depression October 19, 2024 1:04pm October 19, 2024 1: 04pm Supervision of high-risk [facility] t 2024 1:04pm Varicella vaccination status unknown Oct [facility]2024 1:04pm Chief Complaint Admit Date DATING October 08, 2024 4:1 1pm *EST* NOB LMP 08/05, STEPHAN 3/October 19, 2024 1:04pm 12wk ob November 19, 2024 2:45pm Reason for Visit Admit Date Obesity affecting October 19, 2024 1:04pm depression October 19, 2024 1:04pm October 19, 2024 1: 04pm Supervision of high-risk Augus t 2024 1:04pm Varicella vaccination status unknown Oct 1:04pm Obesity affecting November 192024 2:45pm depression November 19 2:45pm November 19, 2024 2:45pm Supervision of high-risk Septe mber 2024 2:45pm Varicella vaccination status unknown [facility] 2024 2:45pm Chief Complaint Admit Date DATING October 08, 2024 4:1 1pm *EST* NOB LMP 08/05, STEPHAN 3October 19, 2024 1:04pm 12wk ob November 19, 2024 2:45pm 16wk ob December 17, 2024 2 :28pm OB 17wk Flank/Back Pain, Dysuria December 29, 2024 1:50pm Reason for Visit Admit Date Obesity affecting October 19, 2024 1:04pm depression October 19, 2024 1:04pm October 19, 2024 1: 04pm Supervision of high-risk Augus t 2024 1:04pm Varicella vaccination status unknown Oct 1:04pm Obesity affecting November 192024 2:45pm depression November 19 2:45pm November 19, 2024 2:45pm Supervision of high-risk Septe mber 2024 2:45pm Varicella vaccination status unknown [facility] 2024 2:45pm Obesity affecting December 2:28pm depression December 17, 2024 2:28pm December 17, 2024 2 :28pm Supervision of high-risk Octob er 2024 2:28pm Varicella vaccination status unknown Oct [facility] 2024 2:28pm Obesity affecting December 1:50pm depression December 29, 2024 1:50pm December 29, 2024 1 :50pm Supervision of high-risk Octob er 2024 1:50pm UTI in December 29, 2024 1 :50pm Varicella vaccination status unknown Oct [facility] 2024 1:50pm Additional Source Comments INFORMATION SOURCE (unrecogn ized section and content) DATE CREATED AUTHOR 04/29/2021 [facility] DATE CREATED AUTHOR AUTHOR'S ORGANIZ ATION 05/09/2022 [facility] DATE CREATED AUTHOR AUTHOR'S ORGANIZ ATION 11/08/2022 [facility] DATE CREATED AUTHOR AUTHOR'S ORGANIZ ATION 08/05/2023 [facility] ([place]) DATE CREATED AUTHOR AUTHOR'S ORGANIZ ATION 11/26/2023 [facility] DATE CREATED AUTHOR AUTHOR'S ORGANIZ ATION 01/12/2025 [facility] DATE CREATED AUTHOR AUTHOR'S ORGANIZ ATION 01/13/2025 [facility] Source Comments (unrecognize d section and content) In the event this informatio n is protected by the Federal Confidentiality of Alcohol and Drug Abuse Patient Records regulations: The Federal rules restrict any use of the information to criminally investigate or prosecute any alcohol or drug abuse patient.[facility] the event this information is protected by the Federal Confidentiality of Alcohol and Drug Abuse Patient Records regulations: The Federal rules restrict any use of the information to criminally investigate or prosecute any alcohol or drug abuse patient.[facility] Reason for Visit (unrecogniz ed section [...] Physician Member Role: ED Physician Address: Address: [facility] [address] [place] [address]- Care Team Related Persons Name: RICHAR CARDENAS Address: [address] [address] Care Teams (unrecognized sec tion and content) Team Status: Active Member Role Status Dates No Primary Care Physician Primary Care Provider Active Team Status: Inactive Member Role Status Dates No Primary Care Physician Primary Care Provider Active Start: February 13, 2024 End: February 13, 2024 No Primary Care Physician Referring Provider Active Start: February 13, 2024 End: February 13, 2024 Jerome De Anda CNM Attending Provider Active S tart: February 13, 2024 End: February 13, 2024 Team Status: Inactive Member Role Status Dates No Primary Care Physician Primary Care Provider Active Start: February 13, 2024 End: February 13, 2024 Jerome De Anda CNM Attending Provider Active S tart: February 13, 2024 End: February 13, 2024 Jerome De Anda CNM Referring Provider Active S tart: February 13, 2024 End: February 13, 2024 Team Status: Active Member Role Status Dates No Primary Care Physician Primary Care Provider Active Start: February 13, 2024 Jerome De Anda CNM Attending Provider Active S tart: February 13, 2024 Jerome De Anda CNM Referring Provider Active S tart: February 13, 2024 Jerome De Anda CNM Other Provider Active Start : February 13, 2024 Team Status: Inactive Member Role Status Dates No Primary Care Physician Primary Care Provider Active Start: February 20, 2024 End: February 20, 2024 No Primary Care Physician Referring Provider Active Start: February 20, 2024 End: February 20, 2024 Dr. Yue Patel DO Attending Provider Activ e Start: February 20, 2024 End: February 20, 2024 Team Status: Inactive Member Role Status Dates No Primary Care Physician Primary Care Provider Active Start: February 20, 2024 End: February 20, 2024 Barbie Trevizo CNM Attending Provider Active Start: February 20, 2024 End: February 20, 2024 Barbie Trevizo CNM Referring Provider Active Start: February 20, 2024 End: February 20, 2024 Team Status: Active Member Role Status Dates No Primary Care Physician Primary Care Provider Active Start: February 21, 2024 Barbie Trevizo CNM Attending Provider Active Start: February 21, 2024 Barbie Trevizo CNM Referring Provider Active Start: February 21, 2024 Barbie Trevizo CNM Other Provider Active Star t: February 21, 2024 Team Status: Inactive Member Role Status Dates No Primary Care Physician Primary Care Provider Active Start: February 23, 2024 End: February 23, 2024 Jerome De Anda CNM Attending Provider Active S tart: February 23, 2024 End: February 23, 2024 Jerome De Anda CNM Referring Provider Active S tart: February 23, 2024 End: February 23, 2024 Team Status: Active Member Role Status Dates No Primary Care Physician Primary Care Provider Active Start: February 23, 2024 Jerome De Anda CNM Attending Provider Active S tart: February 23, 2024 Jerome De Anda CNM Referring Provider Active S tart: February 23, 2024 Jerome De Anda CNM Other Provider Active Start : February 23, 2024 Team Status: Inactive Member Role Status Dates No Primary Care Physician Primary Care Provider Active Start: February 27, 2024 End: February 27, 2024 No Primary Care Physician Referring Provider Active Start: February 27, 2024 End: February 27, 2024 Dr. Mely Castillo MD Attending Provider Active Start: February 27, 2024 End: February 27, 2024 Team Status: Inactive Member Role Status Dates No Primary Care Physician Primary Care Provider Active Start: March 01, 2024 End: March 01, 2024 Jerome De Anda CNM Attending Provider Active S tart: March 01, 2024 End: March 01, 2024 Jerome De Anda CNM Referring Provider Active S tart: March 01, 2024 End: March 01, 2024 Team Status: Inactive Member Role Status Dates No Primary Care Physician Primary Care Provider Active Start: March 04, 2024 End: March 04, 2024 No Primary Care Physician Referring Provider Active Start: March 04, 2024 End: March 04, 2024 Dr. Mely Castillo MD Attending Provider Active Start: March 04, 2024 End: March 04, 2024 Team Status: Inactive Member Role Status Dates No Primary Care Physician Primary Care Provider Active Start: March 04, 2024 End: March 07, 2024 Barbie Trevizo CNM Admit Provider Active Star t: March 04, 2024 End: March 07, 2024 Barbie Trevizo CNM Attending Provider Active Start: March 04, 2024 End: March 07, 2024 Barbie Trevizo CNM Referring Provider Active Start: March 04, 2024 End: March 07, 2024 Team Status: Active Member Role Status Dates No Primary Care Physician Primary Care Provider Active Start: March 04, 2024 Jerome De Anda CNM Admit Provider Active Start : March 04, 2024 Jerome De Anda CNM Attending Provider Active S tart: March 04, 2024 Jerome De Anda CNM Referring Provider Active S tart: March 04, 2024 Jerome De Anda CNM Other Provider Active Start : March 04, 2024 Team Status: Active Member Role Status Dates No Primary Care Physician Primary Care Provider Active Start: March 05, 2024 Jerome De Anda CNM Admit Provider Active Start : March 05, 2024 Jerome De Anda CNM Attending Provider Active S tart: March 05, 2024 Jerome De Anda CNM Referring Provider Active S tart: March 05, 2024 Jerome De Anda CNM Other Provider Active Start : March 05, 2024 Team Status: Active Member Role Status Dates No Primary Care Physician Primary Care Provider Active Start: March 06, 2024 Barbie Trevizo CNM Admit Provider Active Star t: March 06, 2024 Barbie Trevizo CNM Attending Provider Active Start: March 06, 2024 Barbie Trevizo CNM Referring Provider Active Start: March 06, 2024 Barbie Trevizo CNM Other Provider Active Star t: March 06, 2024 Team Status: Active Member Role Status Dates No Primary Care Physician Primary Care Provider Active Start: March 07, 2024 Barbie Trevizo CNM Admit Provider Active Star t: March 07, 2024 Barbie Trevizo CNM Attending Provider Active Start: March 07, 2024 Barbie Trevizo CNM Referring Provider Active Start: March 07, 2024 Barbie Trevizo CNM Other Provider Active Star t: March 07, 2024 Team Status: Inactive Member Role Status Dates No Primary Care Physician Primary Care Provider Active Start: March 08, 2024 End: March 08, 2024 No Primary Care Physician Referring Provider Active Start: March 08, 2024 End: March 08, 2024 Dunia Walters NP, HINGING MACHINE OPERATOR-C Attending Provider Active Start: March 08, 2024 End: March 08, 2024 Team Status: Inactive Member Role Status Dates No Primary Care Physician Primary Care Provider Active Start: April 16, 2024 End: April 16, 2024 No Primary Care Physician Referring Provider Active Start: April 16, 2024 End: April 16, 2024 Jerome De Anda CNM Attending Provider Active S tart: April 16, 2024 End: April 16, 2024 Team Status: Inactive Member Role Status Dates No Primary Care Physician Primary Care Provider Active Start: June 07, 2024 End: June 07, 2024 No Primary Care Physician Referring Provider Active Start: June 07, 2024 End: June 07, 2024 Jerome De Anda CNM Attending Provider Active S tart: June 07, 2024 End: June 07, 2024 Team Status: Inactive Member Role Status Dates No Primary Care Physician Primary Care Provider Active Start: June 07, 2024 End: June 07, 2024 Jerome De Anda CNM Attending Provider Active S tart: June 07, 2024 End: June 07, 2024 Jerome De Anda CNM Referring Provider Active S tart: June 07, 2024 End: June 07, 2024 Team Status: Active Member Role Status Dates No Primary Care Physician Primary Care Provider Active Jerome De Anda CNM Attending Provider, Referring Pro vider Active Team Status: Inactive Member Role Status Dates No Primary Care Physician Primary Care Provider Active Jerome De Anda CNM Attending Provider, Referring Pro vider Active Chief Console Operator Relationship Specialty Start Date End Date [facility] [address] [place] [address] PCP - General 10/29/22 Chief Console Operator Relationship Specialty Start Date [facility] [address] [place] [address] PCP - General 10/29/22 Team Status: Active Member Role/Relationship Status Dates No Primary Care Physician Primary Care Provider Active Team Status: Inactive Member Role/Relationship Status Dates No Primary Care Physician Primary Care Provider Active Start: June 07, 2024 End: June 07, 2024 No Primary Care Physician Referring Provider Active Start: June 07, 2024 End: June 07, 2024 Jerome De Anda CNM Attending Provider Active S tart: June 07, 2024 End: June 07, 2024 Team Status: Inactive Member Role/Relationship Status Dates No Primary Care Physician Primary Care Provider Active Start: June 07, 2024 End: June 07, 2024 Jerome De Anda CNM Attending Provider Active S tart: June 07, 2024 End: June 07, 2024 Jerome De Anda CNM Referring Provider Active S tart: June 07, 2024 End: June 07, 2024 Team Status: Inactive Member Role/Relationship Status Dates No Primary Care Physician Primary Care Provider Active Start: September 28, 2024 End: September 28, 2024 Dr. Yue Patel , Attending Provider Activ e Start: September 28, 2024 End: September 28, 2024 Team Status: Active Member Role/Relationship Status Dates No Primary Care Physician Primary Care Provider Active Start: September 30, 2024 Jerome De Anda CNM Attending Provider Active S tart: September 30, 2024 Jerome De Anda CNM Referring Provider Active S tart: September 30, 2024 Team Status: Inactive Member Role/Relationship Status Dates No Primary Care Physician Primary Care Provider Active Start: September 30, 2024 End: September 30, 2024 Jerome De Anda CNM Attending Provider Active S tart: September 30, 2024 End: September 30, 2024 Jerome De Anda CNM Referring Provider Active S tart: September 30, 2024 End: September 30, 2024 Team Status: Inactive Member Role/Relationship Status Dates No Primary Care Physician Primary Care Provider Active Start: September 28, 2024 End: September 28, 2024 Dr. Yue Patel DO Attending Provider Activ e Start: September 28, 2024 End: September 28, 2024 Team Status: Inactive Member Role/Relationship Status Dates No Primary Care Physician Primary Care Provider Active Start: September 30, 2024 End: September 30, 2024 Jerome De Anda CNM Attending Provider Active S tart: September 30, 2024 End: September 30, 2024 Jerome De Anda CNM Referring Provider Active S tart: September 30, 2024 End: September 30, 2024 Team Status: Inactive Member Role/Relationship Status Dates No Primary Care Physician Primary Care Provider Active Start: October 08, 2024 End: October 08, 2024 Dr. Mely Castillo MD Attending Provider Active Start: October 08, 2024 End: October 08, 2024 Dr. Mely Castillo MD Referring Provider Active Start: October 08, 2024 End: October 08, 2024 Team Status: Inactive Member Role/Relationship Status Dates No Primary Care Physician Primary Care Provider Active Start: October 19, 2024 End: October 19, 2024 No Primary Care Physician Referring Provider Active Start: October 19, 2024 End: October 19, 2024 Jeroem De Anda CNM Attending Provider Active S tart: October 19, 2024 End: October 19, 2024 Team Status: Active Member Role/Relationship Status Dates No Primary Care Physician Primary Care Provider Active Start: October 19, 2024 Jerome De Anda CNM Attending Provider Active S tart: October 19, 2024 Team Status: Inactive Member Role/Relationship Status Dates No Primary Care Physician Primary Care Provider Active Start: October 19, 2024 End: October 19, 2024 Jerome De Anda CNM Attending Provider Active S tart: October 19, 2024 End: October 19, 2024 Team Status: Inactive Member Role/Relationship Status Dates No Primary Care Physician Primary Care Provider Active Start: November 19, 2024 End: November 19, 2024 No Primary Care Physician Referring Provider Active Start: November 19, 2024 End: November 19, 2024 Jerome De Anda CNM Attending Provider Active S tart: November 19, 2024 End: November 19, 2024 Team Status: Active Member Role/Relationship Status Dates No Primary Care Physician Primary care physician Activ e Team Status: Inactive Member Role/Relationship Status Dates No Primary Care Physician Primary care physician Activ e Start: September 28, 2024 End: September 28, 2024 Dr. Yue Patel DO Attending physician Acti ve Start: September 28, 2024 End: September 28, 2024 Team Status: Inactive Member Role/Relationship Status Dates No Primary Care Physician Primary care physician Activ e Start: September 30, 2024 End: September 30, 2024 Jerome De Anda CNM Attending physician Active Start: September 30, 2024 End: September 30, 2024 Jerome De Anda CNM Referring Provider Active S tart: September 30, 2024 End: September 30, 2024 Team Status: Inactive Member Role/Relationship Status Dates No Primary Care Physician Primary care physician Activ e Start: October 08, 2024 End: October 08, 2024 Dr. Mely Castillo MD Attending physician Active Start: October 08, 2024 End: October 08, 2024 Dr. Mely Castillo MD Referring Provider Active Start: October 08, 2024 End: October 08, 2024 Team Status: Inactive Member Role/Relationship Status Dates No Primary Care Physician Primary care physician Activ e Start: October 19, 2024 End: October 19, 2024 No Primary Care Physician Referring Provider Active Start: October 19, 2024 End: October 19, 2024 Jerome De Anda CNM Attending physician Active Start: October 19, 2024 End: October 19, 2024 Team Status: Inactive Member Role/Relationship Status Dates No Primary Care Physician Primary care physician Activ e Start: October 19, 2024 End: October 19, 2024 Jerome De Anda CNM Attending physician Active Start: October 19, 2024 End: October 19, 2024 Team Status: Inactive Member Role/Relationship Status Dates No Primary Care Physician Primary care physician Activ e Start: November 19, 2024 End: November 19, 2024 No Primary Care Physician Referring Provider Active Start: November 19, 2024 End: November 19, 2024 Jerome De Anda CNM Attending physician Active Start: November 19, 2024 End: November 19, 2024 Team Status: Inactive Member Role/Relationship Status Dates No Primary Care Physician Primary care physician Activ e Start: December 17, 2024 End: December 17, 2024 No Primary Care Physician Referring Provider Active Start: December 17, 2024 End: December 17, 2024 Jerome De Anda CNM Attending physician Active Start: December 17, 2024 End: December 17, 2024 Team Status: Inactive Member Role/Relationship Status Dates No Primary Care Physician Primary care physician Activ e Start: December 29, 2024 End: December 29, 2024 No Primary Care Physician Referring Provider Active Start: December 29, 2024 End: December 29, 2024 Ceci Galvez NP, HINGING MACHINE OPERATOR-C Attending physician Active Start: December 29, 2024 End: December 29, 2024 Team Status: Inactive Member Role/Relationship Status Dates No Primary Care Physician Primary care physician Activ e Start: December 29, 2024 End: December 29, 2024 Ceci Galvez NP, HINGING MACHINE OPERATOR-C Attending physician Active Start: December 29, 2024 End: December 29, 2024 Scheduled Active and Recently Administ ered Medications [...] Reason: Other - Comment: given by resident) Goals (unrecognized section and content) Type Care Experience svdLabor Preferences -CB/BF classes: encouragedlabor support person: Codylabor intervention preferences: []pain management options preferred: epidural if requestedcut cord/dad catch: maybebreastfeeding: yesPP control planned: discusseddiscussed possible routes of delivery and associated risks: []special requests: [] Care Experience Labor Preferences-CB /BF classes: []labor support person: []labor intervention preferences: []pain management options preferred: []cut cord/dad catch: []: []PP control planned: []discussed possible routes of delivery and associated risks: []special requests: [] Goals may be documented in an alternate section FOR RECORDS PERTAINING TO PATIENTS WHO ARE [...] BE BASED ON THE PRIMARY CLINICAL RECORDS. [facility] provides no warranty or guarantee of the accuracy or completeness of information in this document.
[2025-01-14 00:56] LABS: Red Blood Cells-Urine 0-5 SEEN /hpf (0-5); Squamous Epithelial Cells - UA 0-5 SEEN /hpf (5-10)
--- NOTE | 2025-01-14 01:24 | EDS_ITS ---
HPI History of Present Illness Chief Complaint: Complaint Narrative Narrative: Patient was seen and examined after presenting to ED for dysuria that she is recently was treated with Keflex for a UTI she started to feel like she was having some dysuria but reports that she is not as well-hydrated today. [facility] Medical History (spontaneous vaginal delivery) Chemical Home Medications ?Medication ?Instructions ?Recorded ?Last Taken ?Type multivit-min no.71-iron fum 28 1 cap PO DAILY 10/07/24 Unknown History mg-folate no.1 1 mg-dha 300 mg capsule (PNV-Canovanas) Allergy/AdvReac Type Severity Reaction Status Date / Time mike Allergy Severe Anaphylaxis Verified 01/13/25 23:28 adhesive Allergy Intermediate Rash Verified 01/13/25 23:28 Sulfa (Sulfonamide AdvReac Intermediate Diarrhea Verified 01/13/25 23:28 Antibiotics) Social History adopted: No household members: spouse and family housing: house number of children: 1 current occupational status: employed current occupation: [employer] current occupational exposures/hazards: Yes (extreme heat) pets and animals: Yes (Avoid litterbox) pets and animals: cat(s) and other details: yulissa history of recent travel: Yes ([place]) out of state: Yes out of country: No sexually active: Yes Smoking Status: Never smoker alcohol intake: current alcohol intake frequency: holidays/special occasions only details: not while substance use type: does not use well-balanced diet: daily or most days caffeine: No eating out: rarely or never during the past year weight has: increased > 10 lbs what type of physical activity do you participate in: walking frequency: 5-6 times per week duration: 60-90 minutes/day janae/hoahaoism: Anabaptist seatbelt use: always do you feel safe at home: Yes additional social history: [facility] ED ROS Narrative Pertinent Positives: Dysuria Pertinent Negatives: Fevers chills new or bodyaches or flank pain vomiting The remainder of review of systems negative unless otherwise stated in the HPI above. Systems reviewed including constitutional, psychiatric, cardiovascular, respiratory, integument, HENT, gastrointestinal. EXAM Physical Exam Narrative Exam Narrative: Patient is afebrile hemodynamically stable does not appear toxic or in distress she is normocephalic and atraumatic. Cranial nerves II through XII grossly intact. She was up and ambulatory without issue. Const Vital Signs: 01/13/25 23:28 01/14/25 01:34 Temperature 97.7 F L Temperature Source Temporal Pulse Rate 60 64 Respiratory Rate 18 16 Blood Pressure 144/92 H Blood Pressure Mean 109 Pulse Ox 100 100 Oxygen Delivery Method Room Air Room Air MDM MDM MDM Narrative Medical decision making narrative: Nursing notes, triage notes, available previous documentation, and vital signs were reviewed. Any discrepancies noted were addressed. Differential Diagnoses: Need to consider UTI this could also just be dehydration lower suspicion for pyelonephritis Labs Reviewed: Urine without evidence of infection Previous Documentation Reviewed: None available or applicable at this time. ED Course: Patient presenting with dysuria as stated above. Patient's urinalysis is completely clear and she has 2+ bacteria but 0-5 WBCs negative nitrates negative leukocyte esterase. She does report that she is not as well-hydrated today she need to drink more water says the dysuria could be from that at this point in time she can follow-up with her medical care team return precautions follow-up recommendations provided. Patient stable for discharge home. This note was made utilizing voice recognition software. All attempts were made to correct spelling or other errors prior to note completion. However, due to the fast-paced nature of emergency medicine, some errors may still be present. Lab Data Labs: Laboratory Results - last 24 hr 01/13/25 23:50 Urine Color Yellow Urine Clarity Clear Urine pH 6.0 Ur Specific [place] 1.010 Urine Protein Negative Urine Glucose (UA) Normal Urine Ketones Negative Urine Occult Blood Negative Urine Nitrite Negative Urine Bilirubin Negative Urine Urobilinogen Normal Ur Leukocyte Esterase Negative Urine RBC 0-5 SEEN Urine WBC 0-5 SEEN Ur Squamous Epith Cells 0-5 SEEN Urine Bacteria 2+ Urine Mucus 0 SEEN Discharge Plan Triage Chief Complaint: Complaint ED Provider: Leonidas Núñez Dx/Rx/DC Orders Clinical Impression: Dysuria, Instructions: Dysuria Prescriptions: No Action PNV-Canovanas 28-1-300 mg capsule 1 cap PO DAILY Primary Care Provider: Care Physician,No Primary Referrals: Mely Perkins MD [Med Staff - Active Staff, Obstetrics-Gynecology (OBGYN)] - 3-5 Days Care Physician,No Primary [Primary Care Provider, Medical] Activity Restrictions/Additional Instructions: Be sure to follow-up with your medical care team if you feel like your symptoms are not getting better or they are getting worse in any way do not hesitate to return Print Language: Croatian Disposition Disposition: Home, Self Care
[2025-01-14 01:34] VITALS: PULSE 64; RESP 16; O2SAT 100
== END 2025-01-14 01:50 | disposition home or self-care (01) ==
PROVIDERS: Emergency Provider Specialist/Technologist Athletic Trainer; Visit Provider Specialist/Technologist Athletic Trainer
DX: O99.891 Other specified diseases and conditions complicating pregnancy (principal); R30.0 Dysuria; Z87.440 Personal history of urinary (tract) infections; Z3A.00 Weeks of gestation of pregnancy not specified
CPT/HCPCS: 81001; 99282

== ENCOUNTER 2025-02-07 16:30 | Outpatient (CLI) | payer MEDICAID, SELFPAY ==
[2025-02-07 16:48] VITALS: BP 129/72; PULSE 72
[2025-02-07 17:04] VITALS: BMI 41.3
[2025-02-07 17:44] VITALS: BP 118/72; PULSE 76
--- OUTSIDE RECORDS SUMMARY | 2025-02-07 20:07 | XMS RPT_ITS | CCD ---
Author Organization [facility] Informat ion Partnership [employer] [facility] Care Team Providers Care Normalizer Name Role Phone Unavailable Primary Care Provider [...] Dr. Yue Patel DO Attending Provider Barbie Trevizo CNM Attending Provider [phone] Barbie Treivzo CNM Referring Provider [phone] Barbie Trevizo CNM [...] No Primary Primary Care Provider Unavailable Bryon CNKeely, Jerome Attending Provider [phone] Bryon MONTOYA, Jerome Referring Provider [phone] Maddie TORRE, Dr. Boone Attending Provider [phone] Dr. Mely Castillo MD Referring Provider Care Physician, No Primary Referring Provider Un available Care Physician, No Primary Primary Care Physicia n Unavailable Neida Niño DO, Dr. Turner Attending Physician Bryon MONTOYA, Jerome Attending Physician [phone] Maddie TORRE, Dr. Boone Attending Physician Leonor SUPERVISOR PILE DRIVING-C, Ceci Attending Physician [phone] MELY CASTILLO Referring Unavailabl e FER CHAVEZ Attending Unavailable NO PRIMARY CARE, MD Primary Care Unavailable GENIA INTERIANO Attending Unavailable MELY CASTILLO Referring Unavailabl e NO PRIMARY CARE, Primary Care Unavailable DANAE REID Attending Unavailable NO PRIMARY CARE, MD Primary Care Unavailable JEROME DE ANDA S Referring Unavailable Santhosh, Barbie Referring Unavailable Barbie Trevizo Attending Unavailable Care Physician, No Primary Primary Care Unava ilable Jerome De Anda Attending Unavailable Care Physician, No Primary Primary Care Unava ilable Jerome De Anda Referring Unavailable Care Physician, No Primary Primary Care Unava ilable Jerome De Anda Attending Unavailable Jerome De Anda Referring Unavailable Santhosh, Barbie Admitting Unavailable Trevizo, Barbie Referring Unavailable Tommy Trevizoy Attending Unavailable Care Physician, No Primary Primary Care Unava ilable Mely Castillo Attending Unavailable Care Physician, No Primary Primary Care Unava ilable Jerome De Anda Attending Unavailable Jerome De Anda Referring Unavailable Care Physician, No Primary Primary Care Unava ilable Jerome De Anda Attending Unavailable Jerome De Anda Referring Unavailable Care Physician, No Primary Primary Care Unava ilable Trevizo, Barbie Consulting Unavailable Trevizo, Barbie Admitting Unavailable Trevizo, Barbie Referring Unavailable TrevizoTommyy Attending Unavailable Care Physician, No Primary Primary Care Unava ilable Trevizo Barbie Consulting Unavailable Trevizo, Barbie Referring Unavailable Trevizo, Barbie Attending Unavailable Care Physician, No Primary Primary Care Unava ilable Jerome De Anda Consulting Unavailable Jerome De Anda Admitting Unavailable Jerome De Anda Attending Unavailable Jerome De Anda Referring Unavailable Care Physician, No Primary Primary Care Unava ilable Jerome De Anda Attending Unavailable Care Physician, No Primary Primary Care Unava ilable Leonidas Núñez Attending Unavailable Leonor SUPERVISOR PILE DRIVING, Ceci Attending Unavailable Care Physician, No Primary Primary Care Unava ilable Jerome De Anda Attending Unavailable Jerome De Anda Referring Unavailable Care Physician, No Primary Primary Care Unava ilable Care Physician, No Primary Primary Care Unava ilable Jerome De Anda Attending Unavailable Jerome De Anda Referring Unavailable Yue Patel Attending Unavailabl e Care Physician, No Primary Primary Care Unava ilable Romeo SUPERVISOR PILE DRIVING, Dunia Attending Unavailable Care Physician, No Primary Referring Unava ilable Care Physician, No Primary Primary Care Unava ilable Leonor SUPERVISOR PILE DRIVING, Ceci Attending Unavailable Care Physician, No Primary [...] Physician, No Primary Primary Care Unava ilable Marcanthony, Mely Referring Unavailable Marcanthony, Mely Referring Unavailable Marcanthony, Mely Attending Unavailable Marcanthony, Mely Consulting Unavailable Care Physician, No Primary Primary Care Unava ilable Jerome De Anda Attending Unavailable Care Physician, No Primary Primary Care Unava ilable Care Physician, No Primary Referring Unava ilable Yue Patel Attending Unavailabl e Care Physician, No Primary Primary Care Unava ilable Care Physician, No Primary Referring Unava ilable Care Physician, No Primary Referring Unava ilable Care Physician, No Primary Primary Care Unava ilable Jerome De Anda Attending Unavailable Care Physician, No Primary Referring Unava ilable Care Physician, No Primary Primary Care Unava ilable Jerome De Anda Attending Unavailable Care Physician, No Primary Primary Care Unava ilable Leonor SUPERVISOR PILE DRIVING, Ceci Attending Unavailable Care Physician, No Primary [...] Jerome De Anda Attending Unavailable Bryon, Jerome Attending Unavailable Care Physician, No Primary Primary Care Unava ilable Care Physician, No Primary Referring Unava ilable Bryon, Jerome Consulting Unavailable Bryon, Jermoe Attending Unavailable Care Physician, No Primary Primary Care Unava ilable Bryon, Jerome Referring Unavailable Jerome De Anda Attending Unavailable Care Physician, No Primary Referring Unava ilable Care Physician, No Primary Primary Care Unava ilable Bryon, Jerome Attending Unavailable Bryon, Jerome Consulting Unavailable Bryon, Jerome Referring Unavailable Care Physician, No Primary Primary Care Unava ilable Bryon, Jerome Referring Unavailable Bryon, Jerome Attending Unavailable Jerome De Anda Consulting Unavailable Care Physician, No Primary Primary Care Unava ilable Mely Castillo Attending Unavailable Care Physician, No Primary Primary Care Unava ilable Care Physician, No Primary Referring Unava ilable Ceci Galvez NP Attending Unavailable Care Physician, No Primary Primary Care Unava ilable Care Physician, No Primary Referring Unava ilable Mely Castillo Referring Unavailable Mely Castillo Attending Unavailable Care Physician, No Primary Primary Care Unava ilable Care Physician, No Primary Primary Care Physicia n Unavailable Dr. Yue Patel DO Attending Physician Jerome De Anda CNM Attending Physician [phone] Jerome De Anda CNM Referring Provider [phone] Dr. Mely Castillo MD Attending Physician Dr. Mely Castillo MD Referring Provider [phone] Care Physician, No Primary Referring Provider Un available Leonor TANNER-CCeci Attending Physician [phone] Dr. Leonidas Núñez DO Emergency Department Physi [facility] Allergies Allergy Classification Reported Allergen(s) Allergy Type Date of Onset Reaction(s) Facility (12 sources) mike allergenic extract; Translations: [MIKE] Drug Allergy 3 Anaphylaxis [facility] (6 sources) Sulfonamides (Antibiotic); Translations: [sulfa drugs] Drug Allergy 1 Diarrhea [facility] (2 sources) Adhesive Tape-Silicones; Translations: [ADHESIVE TAPE-SILICONES] Drug Allergy 3 Rash [facility] (2 sources) Sulfonamide; Translations: [sulfa drugs] Drug allergy [facility] (11 sources) Adhesive agent; Translations: [adhesive] Allergy to substance 4 Rash [facility] Comment on above: Only if on for exten ded amt of time. (10 sources) Sulfonamides (Antibiotic) Propensity to adverse reactions 4 Diarrhea [facility] (1 source) mike allergenic extract Drug Allergy 5 [facility] Repository (1 source) Sulfonamides (Antibiotic) Drug allergy (disorder) 5 [facility] Rep[facility] Medications Current Medications Medication Drug Class(es) Dates Sig (Normalized) Sig (Original) cephalexin 500 mg oral tablet (2 sources) Cephalosporin Antibacterial Start: 12-29-2024 End: 01-05-2025 take 1 tablet by mouth twice daily Cephalexin 500 mg tablet Discontinued 500 mg PO TWICE A DAY 14 7 0 December 28, 2024 11:00pm January 03, 2025 11:00pm January 04, 2025 11:09pm Start: 12-29-2024 take 1 tablet by mouth twice d aily Mv-Mins 71-Gzos-Khdwr No.1-D francis (Pnv-[place]enton) 28-1-300 mg capsule (6 sources) Start: 10-07-2024 Mv-Mins 71-Iro n-Folic No.1-Dha (Pnv-[place]) 28-1-300 mg capsule Active 1 NMA PO DAILY October 06, 2024 11:00pm Complies with drug therapy Start: 10-07-2024 Start: 10-07-2024 Mv-Mins 71-Iro n-Folic No.1-Dha (Pnv-[place]enton) 28-1-300 mg capsule Active NMA PO October [...] Sig (Original) citalopram 20 mg oral tablet (18 sources) Serotonin Reuptake Inhibitor Start: 05-12-2024 End: 10-07-2024 take 1 tablet by mouth once daily Citalopram 20 mg tablet Discontinued 20 mg PO DAILY 90 3 June 07, 2024 2:14pm October 07, 2024 7:30am depression depression famotidine 20 mg oral tablet (9 sources) Histamine-2 Receptor Antagonist Start: 12-25-2023 End: 06-07-2024 take 1 tablet by mouth once daily Famotidine (Pepcid) 20 mg tablet Discontinued 20 mg PO DAILY 30 December 24, 2023 11:00pm June 07, 2024 2:07pm FLUoxetine 20 mg oral capsule (9 sources) Serotonin Reuptake Inhibitor Start: 04-28-2024 End: 05-12-2024 take 1 capsule by mouth once daily Fluoxetine (Prozac) 20 mg capsule Discontinued 20 mg PO DAILY 30 2 April 28, 2024 12:00am May 12, 2024 4:12pm depression depression Iron (10 sources) Start: 07-08-2023 End: 07-08-2023 Pnv No.270-Adgd-Asouuk No.10 (Pnv Tabs 20-1) 20 mg iron- 1 mg tablet Discontinued {tbl} PO July 07, 2023 11:00pm July 08, 2023 7:25am Start: 07-08-2023 End: 07-08-2023 Pnv No.164-Uzkx-Xjwoew No.10 (Pnv Tabs 20-1) 20 mg iron- 1 mg tablet Discontinued {tbl} PO July 08, 2023 12:00am July 08, 2023 8:25am Start: 07-08-2023 End: 07-08-2023 Pnv No.473-Soqq-Ngxknx No.10 (Pnv Tabs 20-1) 20 mg iron- 1 mg tablet Discontinued TABLET PO July 08, 2023 12:00am July 08, 2023 8:25am Multivit 94-Fior-Szoyvn 1-Dh a (Pnv-Dha) 27 mg iron-1 mg -300 mg capsule (10 sources) Start: 07-08-2023 End: 06-07-2024 Multivit 26-Dtcp-Tuxnnm 1-Dh a (Pnv-Dha) 27 mg iron-1 mg -300 mg capsule Discontinued 1 NMA PO DAILY July 07, 2023 11:00pm June 07, 2024 2:07pm Start: 07-08-2023 End: 06-07-2024 Multivit 77-Vyis-Bworgl 1-Dh a (Pnv-Dha) 27 mg iron-1 mg -300 mg capsule Discontinued 1 NMA PO DAILY July 08, 2023 12:00am June 07, 2024 3:07pm Start: 07-08-2023 End: 06-07-2024 Multivit 87-Idrr-Xpcgqe 1-Dh a (Pnv-Dha) 27 mg iron-1 mg [...] 0.5 % ophthalmic solution 1-2 drop Zuranolone (18 sources) Start: 025 End: 025 take 1 capsule by mouth once daily Zuranolone (Zurzuvae) 25 mg capsule Discontinued 50 mg PO daily 28 14 0 April 23, 2024 2:36pm May 06, 2024 12:00am May 07, 2024 12:12am depression depression administer with a high fat [...] 50 mg PO daily April 16, 2024 12:00am April 29, 2024 12:00am April 23, 2024 2:36pm depression depression administer with a high fat [...] 05-08-2022 Episodic Genitourinary symptoms and ill-defined conditions (2 sources) Dysuria; Translations: [Dysuria] Onset: 12-31-2024 01-14-2025 Episodic Hemorrhage during ; abruptio placenta; placenta previa (6 sources) Antepartum hemorrhage; Translations: [Antepartum hemorrhage, unspecified, unspecified trimester] Onset: 07-01-2023 Episodic Comment on above: repeat at 28 weeks Menstrual disorders (13 sources) Amenorrhea; Translations: [Amenorrhea, unspecified] Onset: 06-10-2024 06-30-2023 Chronic Comment on above: HCG X 2 Miscellaneous mental health disorders (20 sources) depression; Translations: [ depression] Onset: 01-13-2025 04-16-2024 Episodic Comment on above: Pt stopped taking ci talopram 3 mos ago- stable Other complications of (20 sources) Maternal obesity complicating , childbirth and the puerperium, antepartum; Translations: [Obesity complicating , unspecified trimester] 04-16-2024 Chronic Comment on above: A1C nl -BMI 42 at NO B plan growth us at 32 and 36 weeks, nsts weekly starting at 34 weeks HgbA1c HgbA1c, BMI 40 Other complications of (1 source) Obesity complicating , second trimester; Translations: [Obesity complicating , second trimester] Onset: 01-13-2025 Chronic Other complications of (1 source) Obesity complicating , unspecified trimester; Translations: [Obesity complicating , unspecified trimester] Onset: 12-17-2024 Chronic Other complications of (2 sources) Obesity complicating , third trimester; Translations: [Obesity complicating , third trimester] Onset: 03-23-2024 Chronic Other complications of (10 sources) H/O: miscarriage; Translations: [Supervision of with other poor reproductive or obstetric history, unspecified trimester] 07-08-2023 Episodic Comment on above: chemical Other complications of (20 sources) High risk ; Translations: [Supervision of high risk , unspecified, unspecified trimester] 07-08-2023 Episodic Comment on above: PRR, , STEPHAN 03/11/ 5, Leonardo , STEPHAN 05/08/25, PC Cole, Leonardo , STEPHAN 06/03/25, P C Cole, Leonardo [id number], STEPHAN 06/03/25 , PC Cole, Leonardo [id number], STEPHAN 06/03/25 , boy jacklyn PC Cole, Leonardo Other complications of (15 sources) Abnormal findings on screening of mother; Translations: [Other abnormal findings on screening of mother] 03-04-2024 Episodic Comment on above: BPP 8/8, d/c home Other complications of (5 sources) Urinary tract infection in ; Translations: [Unspecified infection of urinary tract in , unspecified trimester] 12-29-2024 Episodic Comment on above: +UA, keflex. culture pending Other complications of (1 source) Unspecified infection of urinary tract in , second trimester; Translations: [Unspecified infection of urinary tract in , second trimester] Onset: 01-13-2025 Episodic Other complications of (1 source) Supervision of high risk , unspecified, second trimester; Translations: [Supervision of high risk , unspecified, second trimester] Onset: 01-13-2025 Episodic Other complications of (1 source) Supervision [...] 30+ - obesity 11-22-2023 Chronic Other conditions (9 sources) tachycardia; Translations: [Abnormality in heart rate or rhythm, unspecified as to time of onset] 02-02-2024 Episodic Comment on above: had bpp in triage Residual codes; unclassified (18 sources) Immunization status unknown; Translations: [Other specified health status] 10-07-2024 Episodic Comment on above: states has not had v irus states has not had - vaccination status confirmed Residual codes; unclassified (1 source) 19 weeks gestation of ; Translations: [19 weeks gestation of ] Onset: 01-13-2025 Episodic Residual codes; unclassified (1 source) Other [...] unspecified] Onset: 03-01-2024 Episodic Other complications of (18 sources) Vomiting of , unspecified; Translations: [Nausea and vomiting during ] Onset: 03-04-2024 03-12-2024 Episodic Other complications of (2 sources) Supervision of high risk , unspecified, third trimester; Translations: [Supervision of high risk , unspecified, third trimester] Onset: 03-04-2024 Episodic Other complications of (2 sources) Other abnormal findings on screening of mother; Translations: [Other abnormal findings on screening of mother] Onset: 03-04-2024 Episodic Other complications of (1 [...] Yes on Admission LC IOL- BPP 06/15, NEELAM Galvan GBS neg, discussed g enetic & carrier testing, declined declined NIPT & Ramírez ier testing declined NIPT & Ramírez ier testing. afp ordered. anatomy neds fu views. Other screening for suspected conditions (not mental disorders or infectious disease) (16 sources) Finding related to ; Translations: [Encounter [...] Test Name Value Interpretation Reference Range Facility Emergency Department Summary on 01-14-2025 Emergency Department Summary [facility] Medical Records Department [address] [place] [address] Emergency Department Summary 01/14/25 MR#: [id number] Acct: [id number] Name: LACY MACIAS Rep #: [id number] : 1995 29 From: Leonidas Núñez DO PCP: Care Physician,No Primary Status:REG ER Location: ED HPI History of Present Illness Chief Complaint: Complaint Narrative Narrative: Patient was seen and examined after presenting to ED for dysuria that she is recently was treated with Keflex for a UTI she started to feel like she was having some dysuria but reports that she is not as well-hydrated today. PFSH PFS Medical History (spontaneous vaginal delivery) Chemical Home Medications ???Medication ???Instructions ???Recorded ???Last Taken ???Type multivit-min no.71-iron fum 28 1 cap PO DAILY 10/07/24 Unknown Hi story mg-folate no.1 1 mg-dha 300 mg capsule (PNV-[place]enton) Allergy/AdvReac Type Severity Reaction Status Date / Time mike Allergy Severe Anaphylaxis Verified 01/13/25 23:28 adhesive Allergy Intermediate Rash Verified 01/13/25 23:28 Sulfa (Sulfonamide AdvReac Intermediate Diarrhea Verified 01/13/25 23:28 Antibiotics) Social History adopted: No household members: spouse and family housing: house number of children: 1 current occupational status: employed current occupation: [employer] current occupational exposures/hazards: Yes (extreme heat) pets [...] 5-6 times per week duration: 60-90 minutes/day janae/shinto: Ep[employer] seatbelt use: always do you feel safe at home: Yes additional social history: Leonardo BORGES ED ROS Narrative Pertinent Positives: Dysuria Pertinent Negatives: Fevers chills new or bodyaches or flank pain vomiting The remainder of review of systems negative unless otherwise stated in the HPI above. Systems reviewed including constitutional, psychiatric, cardiovascular, respiratory, integument, HENT, gastrointestinal. EXAM Physical Exam Narrative Exam Narrative: Patient is afebrile hemodynamically stable does not appear toxic or in distress she is normocephalic and atraumatic. Cranial nerves II through XII grossly intact. She was up and ambulatory without issue. Const Vital Signs: 01/13/25 23:28 01/14/25 01:34 Temperature 97.7 F L Temperature Source Temporal Pulse Rate 60 64 Respiratory Rate 18 16 Blood Pressure 144/92 H Blood Pressure Mean 109 Pulse Ox 100 100 Oxygen Delivery Method Room Air Room Air MDM MDM MDM Narrative Medical decision making narrative: Nursing notes, triage notes, available previous documentation, and vital signs were reviewed. Any discrepancies noted were addressed. Differential Diagnoses: Need to consider UTI this could also just be dehydration lower suspicion for pyelonephritis Labs Reviewed: Urine without evidence of infection Previous Documentation Reviewed: None available or applicable at this time. ED Course: Patient presenting with dysuria as stated above. Patient's urinalysis is completely clear and she has 2+ bacteria but 0-5 WBCs negative nitrates negative leukocyte esterase. She does report that she is not as well-hydrated today she need to drink more water says the dysuria could be from that at this point in time she can follow-up with her medical care team return precautions follow-up recommendations provided. Patient stable for discharge home. This note was made utilizing voice recognition software. All attempts were made to correct spelling or other errors prior to note completion. However, due to the fast-paced nature of emergency medicine, some errors may still be present. Lab Data Labs: Laboratory Results - last 24 hr 01/13/25 23:50 Urine Color Yellow Urine Clarity Clear Urine pH 6.0 Ur Specific [place] 1.010 Urine Protein Negative Urine Glucose (UA) Normal Urine Ketones Negative Urine Occult Blood Negative Urine Nitrite Negative Urine Bilirubin Negative Urine Urobilinogen Normal Ur Leukocyte Esterase Negative Urine RBC 0-5 SEEN Urine (more content not included)... Normal [facility] Urinalysis, Completeon 01-14 BACTERIA 2+ /hpf Normal None Seen [facility] Comment on above: Order Comment: LESA JULIAN TO SPECIFY Performed By: #### L [id number] ####[facility] [address] [place], [address] EPI,SQUAMOUS 0-5 SEEN Normal 5-10 [facility] Comment on above: Order Comment: LESA CTOR TO SPECIFY Performed By: #### L [id number] ####[facility] [address] [place], [place], [id number] RBC 0-5 SEEN Normal 0-5 [facility] Comment on above: Order Comment: LESA CTOR TO SPECIFY Performed By: #### L [id number] ####[facility] [address] [place], [place], [id number] WBC 0-5 SEEN Normal 0-5 [facility] Comment on above: Order Comment: LESA CTOR TO SPECIFY Performed By: #### L [id number] ####[facility] [address] [place], [place], [id number] Bilirubin Test strip Ql (U)O rdered By: Leonidas Núñez on 01-13-2025 Bilirubin Ql (U) Negative Negative [facility] Ketones Test strip Ql (U)Ord ered By: Leonidas Núñez on 01-13-2025 Ketones Ql (U) Negative Negative [facility] Microscopic analysis of urin e for red blood cells (RBC)Ordered By: Leonidas Núñez on 01-13-2025 Microscopic analysis of urine for red blood cells (RBC) 0-5 SEEN /hpf 0-5 [facility] Mucus LM Ql (Urine sed)Order ed By: Leonidas Núñez on 01-13-2025 Mucus Ql (Urine sed) 0 SEEN /hpf [facility] Nitrite Test strip Ql (U)Ord ered By: Leonidas Núñez on 01-13-2025 Nitrite Ql (U) Negative Negative [facility] Protein Test strip Ql (U)Ord ered By: Leonidas Núñez on 01-13-2025 Protein Ql (U) Negative Negative [facility] Squamous epithelial cells de tection in urine sediment by light microscopyOrdered By: Leonidas Núñez on 01-13-2025 Epithelial cells.squamous LM Ql (Urine sed) 0-5 SEEN /hpf 5-10 [facility] Urinalysis, Completeon 01-13 Mucus Ql (Urine sed) 0 SEEN Normal [facility] Comment on above: Order Comment: COLLE CTOR TO SPECIFY Performed By: #### L [id number] ####[facility] [address] [place], [address] Urine clarityOrdered By: Dayanara Rodriguez on 01-13-2025 Clarity (U) Clear Clear [facility] Urine color determinationOrd ered By: Leonidas Núñez on 01-13-2025 Color (U) Yellow Yellow [facility] Urine glucose detectionOrder ed By: Leonidas Núñez on 01-13-2025 Glucose Ql (U) Normal mg/dl Normal [facility] Urine leukocyte esterase det ection by dipstickOrdered By: Leonidas Núñez on 01-13-2025 Leukocyte esterase Test strip Ql (U) Negative Negative [facility] Urine pHOrdered By: Leonidas rivas on 01-13-2025 pH (U) 6.0 [pH] 5.0 - 8.0 [facility] Urine sediment bacteria coun t by microscopy (number/high power field)Ordered By: Leonidas Núñez on 01-13-2025 Bacteria LM.HPF (Urine sed) [#/Area] 2 /[HPF] None Seen [facility] Urine specific gravity measu rementOrdered By: Leonidas Núñez on 01-13-2025 Specific gravity (U) [Rel density] 1.010 1.002-1.030 [facility] Urine urobilinogen measureme ntOrdered By: Leonidas Núñez on 01-13-2025 Urobilinogen Ql (U) Normal mg/dl Normal [facility] White blood cell countOrdere d By: Leonidas Núñez on 01-13-2025 White blood cell count 0-5 SEEN /hpf 0-5 [facility] Laboratory - Chemistry and C hemistry - challengeOrdered By: Mely Castillo on 01-12-2025 Glucose Ql (U) Negative [facility] Laboratory - UrinalysisOrder ed By: Mely Castillo on 01-12-2025 Protein Ql (U) Negative [facility] Auto Mechanic Supervisor Office Visit Reporton 01-12-2025 Auto Mechanic Supervisor Office Visit Report [facility] [address], [address] [place] [address] OFFICE VISIT Date of Service: 01/12/25 MR#: [id number] Acct: [id number] Name: LACY MACIAS Rep #: [id number] : 1995 Provider: Dr. Mely harmon MD Age/Sex: 29/F [place] [facility] [place]: [place]igned Intake Vital Signs 11/19/24 14:51 12/29/24 14:04 01/12/25 08:47 Height 5 ft 7 in 5 ft 7 in 5 ft 7 in Weight: 266 lb 1 oz BMI 41.6 BP 114/62 Intake Visit Reasons: 19W 5D OB Dry Folder Cloth Required: No Is patient in pain?: No Allergies mike Allergy (Severe, Verified 01/12/25 08:49) Anaphylaxis adhesive Allergy (Intermediate, Verified 01/12/25 08:49) Rash Sulfa (Sulfonamide Antibiotics) Adverse Reaction (Intermediate, Verified 01/12/25 08:49) Diarrhea Medications ???Medication ???Instructions ???Recorded ???Confirmed ???Type multivit-min no.71-iron fum 28 cap PO 10/07/24 01/12/25 History mg-folate no.1 1 mg-dha 300 mg capsule (PNV-[place]) Last Menstrual Period: 08/01/24 Zika: Zika virus screening: Negative : No PFSH PFSH Medical History (spontaneous vaginal delivery) Chemical Social History adopted: No household members: spouse and family housing: house number of children: 1 current occupational status: employed current occupation: [employer] current occupational exposures/hazards: Yes (extreme heat) [...] 5-6 times per week duration: 60-90 minutes/day janae/shinto: Episcopalian seatbelt use: always do you feel safe [...] Other Estimates 05/08/25 LMP (Certain) 23w 3d 06/05/25 Ultrasound #2 19w 3d Expected Delivery Route/Plan [...] (+6 l (more content not included)... Normal [facility] Urine Cultureon 12-31-2024 [facility] Mixed Gram Positive Organisms [place] Count 25,000-50,000 MIXC Mixed contaminants. Submit a new specimen if indicated. Normal [facility] Comment on above: Performed By: #### L 509.8000 #### [facility] [address] [place], [place], [id number] Urine cultureOrdered By: Nakul Galvez on 12-30-2024 Bacteria identified Cx Nom (U) Positive Abnormal [facility] - Chemistry and C hemistry - challengeOrdered By: Ceci Galvez on 12-29-2024 Bilirubin Ql (U) Negative [facility] Glucose Ql (U) Negative [facility] Ketones Ql (U) Negative [facility] pH (U) 7.5 [pH] [facility] Specific gravity (U) [Rel density] 1.010 [facility] Urobilinogen (U) [Mass/Vol] Negative [facility] - Hematology and Cell countsOrdered By: Ceci Galvez on 12-29-2024 Hemoglobin Ql (U) Negative [facility] - Specimen inform ationOrdered By: Ceci Galvez on 12-29-2024 Clarity (U) Clear [facility] Color (U) Yellow [facility] - UrinalysisOrder ed By: Ceci Galvez on 12-29-2024 Nitrite Ql (U) Negative [facility] Protein Ql (U) 1+ [facility] No Panel InformationOrdered By: Ceci Galvez on 12-29-2024 Urine Leukocytes Positive [facility] Urine Non-Hemolyzed Blood Negative [facility] Auto Mechanic Supervisor Office Visit Reporton 12-29-2024 Auto Mechanic Supervisor Office Visit Report [address], [address] [place] [address] OFFICE VISIT Date of Service: 12/29/24 MR#: [id number] Acct: [id number] Name: LACY MACIAS Rep #: [id number] : 1995 Provider: ANJUM devlin Age/Sex: 29/F [place] [facility] [place] Intake Vital Signs 12/29/24 14:04 Height 5 ft 7 in Weight: 263 lb 9 oz BMI 41.3 BP 125/72 H Intake Visit Reasons: OB 17wk Flank/Back Pain, Dysuria Dry Folder Cloth Required: No Is patient in pain?: No Allergies mike Allergy (Severe, Verified 12/29/24 13:55) Anaphylaxis adhesive Allergy (Intermediate, Verified 12/29/24 13:55) Rash Sulfa (Sulfonamide Antibiotics) Adverse Reaction (Intermediate, Verified 12/29/24 13:55) Diarrhea Medications ???Medication ???Instructions ???Recorded ???Confirmed ???Type multivit-min no.71-iron fum 28 cap PO 10/07/24 12/29/24 History mg-folate no.1 1 mg-dha 300 mg capsule (PNV-[place]) cephalexin 500 mg tablet 500 mg PO BID 7 days #14 tabs 12/0912/29/24 Rx Last Menstrual Period: 08/01/24 Zika: Zika virus screening: Negative : No PFSH PFSH Medical History (spontaneous vaginal delivery) Chemical Social History adopted: No household members: spouse and family housing: house number of children: 1 current occupational status: employed current occupation: [employer] current occupational exposures/hazards: Yes (extreme heat) pets [...] 5-6 times per week duration: 60-90 minutes/day janae/shinto: Episcopalian seatbelt use: always do you feel safe [...] 12/17/24 -? (more content not included)... Normal [facility] Urine cultureOrdered By: Nakul Galvez on 12-29-2024 Bacteria identified Cx Nom (U) Positive Abnormal [facility] - Chemistry and C hemistry - challengeOrdered By: Jerome De Anda on 12-17-2024 Glucose Ql (U) Negative [facility] - UrinalysisOrder ed By: Jerome De Anda on 12-17-2024 Protein Ql (U) Negative [facility] Auto Mechanic Supervisor Office Visit Reporton 12-17-2024 Auto Mechanic Supervisor Office Visit Report [facility] [address], [address] [place] [address] OFFICE VISIT Date of Service: 12/17/24 MR#: [id number] Acct: [id number] Name: LACY MACIAS Rep #: [id number] : 1995 Provider: JAN Pireto ams Age/Sex: 29/F [place] [facility] [place]: Signed Intake Vital Signs 10/19/24 13:07 11/19/24 14:51 12/17/24 14:34 12/17/24 14:34 Height 5 ft 7 in 5 ft 7 in 5 ft 7 in Weight: 262 lb 9 oz BMI 41.1 BP 131/82 H Intake Visit Reasons: 16wk ob Dry Folder Cloth Required: No Is patient in pain?: No Allergies mike Allergy (Severe, Verified 12/17/24 14:32) Anaphylaxis adhesive Allergy (Intermediate, Verified 12/17/24 14:32) Rash Sulfa (Sulfonamide Antibiotics) Adverse Reaction (Intermediate, Verified 12/17/24 14:32) Diarrhea Medications ???Medication ???Instructions ???Recorded ???Confirmed ???Type multivit-min no.71-iron fum 28 cap PO 10/07/24 12/17/24 History mg-folate no.1 1 mg-dha 300 mg capsule (PNV-[place]) Last Menstrual Period: 08/01/24 Zika: Zika virus screening: Negative : No Have you fallen in the past year?: No PFSH PFSH Medical History (spontaneous vaginal delivery) Chemical Social History adopted: No household members: spouse and family housing: house number of children: 1 current occupational status: employed current occupation: [employer] current occupational exposures/hazards: Yes (extreme heat) pets [...] 5-6 times per week duration: 60-90 minutes/day janae/shinto: Episcopalian seatbelt use: always do you feel safe [...] -???-???-???-???-???-???- ???-???-?? (more content not included)... Normal [facility] - Chemistry and C hemistry - challengeOrdered By: Jerome De Anda on 11-19-2024 Glucose Ql (U) Negative [facility] - UrinalysisOrder ed By: Jerome De Anda on 11-19-2024 Protein Ql (U) Negative [facility] Auto Mechanic Supervisor Office Visit Reporton 11-19-2024 Auto Mechanic Supervisor Office Visit Report [facility] [address], [address] [place] [address] OFFICE VISIT Date of Service: 11/19/24 MR#: [id number] Acct: [id number] Name: LACY MACIAS Rep #: [id number] : 1995 Provider: JAN Prieto ams Age/Sex: 29/F [place] [facility] [place]: Signed Intake Vital Signs 06/07/24 15:04 10/19/24 13:07 11/19/24 14:51 Height 5 ft 7 in 5 ft 7 in 5 ft 7 in Weight: 256 lb 4 oz BMI 40.1 BP 125/72 H Intake Visit Reasons: 12wk ob Chief Complaint: 12wk OB Dry Folder Cloth Required: No Is patient in pain?: No Allergies mike Allergy (Severe, Verified 11/19/24 14:49) Anaphylaxis adhesive Allergy (Intermediate, Verified 11/19/24 14:49) Rash Sulfa (Sulfonamide Antibiotics) Adverse Reaction (Intermediate, Verified 11/19/24 14:49) Diarrhea Medications ???Medication ???Instructions ???Recorded ???Confirmed ???Type multivit-min no.71-iron fum 28 cap PO 10/07/24 11/19/24 History mg-folate no.1 1 mg-dha 300 mg capsule (PNV-[place]) Last Menstrual Period: 05/25/25 Have you fallen in the past year?: No PFSH PFSH Medical History (spontaneous vaginal delivery) Chemical Social History adopted: No household members: spouse and family housing: house number of children: 1 current occupational status: employed current occupation: [employer] current occupational exposures/hazards: Yes (extreme heat) [...] 5-6 times per week duration: 60-90 minutes/day janae/shinto: Episcopalian seatbelt use: always do you feel safe [...] term 7lb 5oz Male epidural [facility] L tabathajohanne Trevizo Leonardo Delivery Date: 03/05/24 Last Updated [...] Cessation, Illicit/Recreationa (more content not included)... Normal [facility] Chlamydia/GC CHRISTOPHER aptimaon CHLAMY,NUC ACID Negative Normal Negative [facility] Comment on above: Performed By: #### L 7000.1800, M100.2200 ####[facility] [address] [place], [address] GC BY NUC ACID Negative Normal Negative [facility] Comment on above: Result Comment: Perf ormed at: =G - [facility] [address] [id number] Ceramic Restorer: Estephania Ovalle MD, Phone: [phone] Performed By: #### L 7000.1800, M100.2200 ####[facility] [address] [place], [address] Urine Cultureon 10-20-2024 URC Culture exhibits no growth. Normal [facility] Comment on above: Performed By: #### L 7000.1800, M100.2200 ####[facility] [address] [place], [address] Urine cultureOrdered By: Kalpesh De Anda on 10-20-2024 Bacteria identified Cx Nom (U) Culture exhibits no growth. [facility] Absolute lymphocyte countOrd ered By: Jerome De Anda on 10-19-2024 Lymphocytes Auto (Unsp spec) [#/Vol] 1.77 10*3/uL 0.83-4.51 [facility] Absolute neutrophil countOrd ered By: Jerome De Anda on 10-19-2024 Neutrophils (Bld) [#/Vol] 8.2 10*3/uL High 2.0-7.7 [facility] Automated lymphocyte count a s percentage of total leukocytesOrdered By: Jerome De Anda on 10-19-2024 Lymphocytes/100 WBC Auto (Unsp spec) 16.5 % Low 19-41 [facility] Basophil percentageOrdered B y: Jerome De Anda on 10-19-2024 Basophils/100 WBC (Bld) 0.6 % 0-1 [facility] CBC W/Diff, Automatedon 10-08 Absolute Lymph 1.77 X10 3/uL Normal 0.83-4.51 [facility] Comment on above: Performed By: #### L 3890.6102, L3890.6006, BTS, L3890.6301, L509.8002, L100.0100, L501.9985, L509.4006 ####[facility] [address] [place], [address] Absolute Neut 8.2 X10 3/uL High 2.0-7.7 [facility] Comment on above: Performed By: #### L 3890.6102, L3890.6006, BTS, L3890.6301, L509.8002, L100.0100, L501.9985, L509.4006 ####[facility] [address] [place], [address] Basophils/100 WBC (Bld) 0.6 % Normal 0-1 [facility] Comment on above: Performed By: #### L 3890.6102, L3890.6006, BTS, L3890.6301, L509.8002, L100.0100, L501.9985, L509.4006 ####[facility] [address] [place], [address] Eosinophils/100 WBC (Bld) 0.5 % Normal 0-5 [facility] Comment on above: Performed By: #### L 3890.6102, L3890.6006, BTS, L3890.6301, L509.8002, L100.0100, L501.9985, L509.4006 ####[facility] [address] [place], [address] Erythrocyte distribution width (RBC) [Ratio] 13.4 % Normal 11.6-14.6 [facility] Comment on above: Performed By: #### L 3890.6102, L3890.6006, BTS, L3890.6301, L509.8002, L100.0100, L501.9985, L509.4006 ####[facility] [address] [place], [address] Hematocrit (Bld) [Volume fraction] 37.7 % Normal 37-47 [facility] Comment on above: Performed By: #### L 3890.6102, L3890.6006, BTS, L3890.6301, L509.8002, L100.0100, L501.9985, L509.4006 ####[facility] [address] [place], [address] Hemoglobin (Bld) [Mass/Vol] 12.2 g/dL Normal 12.0-15.0 [facility] Comment on above: Performed By: #### L 3890.6102, L3890.6006, BTS, L3890.6301, L509.8002, L100.0100, L501.9985, L509.4006 ####[facility] [address] [place], [address] IG% 0.200 Normal 0.0-0.9 [facility] Comment on above: Result Comment: IG% - Immature Granulocytes (promyelocytes, myelocytes and metamyelocytes) > 1% indicates that a LEFT SHIFT is Present. Performed By: #### L 3890.6102, L3890.6006, BTS, L3890.6301, L509.8002, L100.0100, L501.9985, L509.4006 ####[facility] [address] [place], [address] Lymphocytes/100 WBC (Bld) 16.5 % Low 19-41 [facility] Comment on above: Performed By: #### L 3890.6102, L3890.6006, BTS, L3890.6301, L509.8002, L100.0100, L501.9985, L509.4006 ####[facility] [address] [place], [address] MCH (RBC) [Entitic mass] 27.5 pg Normal 27.0-32.0 [facility] Comment on above: Performed By: #### L 3890.6102, L3890.6006, BTS, L3890.6301, L509.8002, L100.0100, L501.9985, L509.4006 ####[facility] [address] [place], [address] MCHC (RBC) [Mass/Vol] 32.4 g/dL Normal 32-36 [facility] Comment on above: Performed By: #### L 3890.6102, L3890.6006, BTS, L3890.6301, L509.8002, L100.0100, L501.9985, L509.4006 ####[facility] [address] [place], [address] MCV (RBC) [Entitic vol] 85.1 fL Normal 81-99 [facility] Comment on above: Performed By: #### L 3890.6102, L3890.6006, BTS, L3890.6301, L509.8002, L100.0100, L501.9985, L509.4006 ####[facility] [address] [place], [address] Monocytes/100 WBC (Bld) 5.8 % Normal 0-10 [facility] Comment on above: Performed By: #### L 3890.6102, L3890.6006, BTS, L3890.6301, L509.8002, L100.0100, L501.9985, L509.4006 ####[facility] [address] [place], [address] Neutrophils/100 WBC (Bld) 76.4 % High 47-70 [facility] Comment on above: Performed By: #### L 3890.6102, L3890.6006, BTS, L3890.6301, L509.8002, L100.0100, L501.9985, L509.4006 ####[facility] [address] [place], [address] Nucleated RBC (Bld) [#/Vol] 0 10*3/uL Normal 0-5 [facility] Comment on above: Performed By: #### L 3890.6102, L3890.6006, BTS, L3890.6301, L509.8002, L100.0100, L501.9985, L509.4006 ####[facility] [address] [place], [address] Platelet mean volume (Bld) [Entitic vol] 10.0 fL Normal 6.2-12.0 [facility] Comment on above: Performed By: #### L 3890.6102, L3890.6006, BTS, L3890.6301, L509.8002, L100.0100, L501.9985, L509.4006 ####[facility] [address] [place], [address] Platelets (Bld) [#/Vol] 372 10*3/uL Normal 150-450 [facility] Comment on above: Performed By: #### L 3890.6102, L3890.6006, BTS, L3890.6301, L509.8002, L100.0100, L501.9985, L509.4006 ####[facility] [address] [place], [address] RBC (Bld) [#/Vol] 4.43 10*6/uL Normal 4.2-5.4 [facility] Comment on above: Performed By: #### L 3890.6102, L3890.6006, BTS, L3890.6301, L509.8002, L100.0100, L501.9985, L509.4006 ####[facility] [address] [place], [address] RDW SD 41.9 fl Normal 35.1-43.9 [facility] Comment on above: Performed By: #### L 3890.6102, L3890.6006, BTS, L3890.6301, L509.8002, L100.0100, L501.9985, L509.4006 ####[facility] [address] [place], [address] WBC (Bld) [#/Vol] 10.7 10*3/uL Normal 4.4-11.0 [facility] Comment on above: Performed By: #### L 3890.6102, L3890.6006, BTS, L3890.6301, L509.8002, L100.0100, L501.9985, L509.4006 ####[facility] [address] [place], [address] Chlamydia trachomatis rRNA d etection by probe and target amplification methodOrdered By: Jerome De Anda on 10-19-2024 C. trachomatis rRNA CHRISTOPHER+probe Ql (Unsp spec) Negative Negative [facility] Eosinophil percentageOrdered By: Jerome De Anda on 10-19-2024 Eosinophils/100 WBC (Bld) 0.5 % 0-5 [facility] Erythrocyte distribution wid th ratioOrdered By: Jerome De Anda on 10-19-2024 Erythrocyte distribution width (RBC) [Ratio] 13.4 % 11.6-14.6 [facility] Erythrocyte distribution wid th standard deviationOrdered By: Jerome De Anda on 10-19-2024 Erythrocyte distribution width (RBC) [Ratio] 41.9 fl 35.1-43.9 [facility] HIVon 10-19-2024 HIV Non-Reactive Normal Nonreactive [facility] Comment on above: Result Comment: Non- Reactive Reactive Repeatedly reactive samples must be confirmed according to CDC recommended confirmatory algorithms. The subresults for either HIVAG or AHIV can be used as an aid in the selection of the confirmation algorithm for reactive samples. Send out specimens with Reactive results to [facility] for confirmation. Order the HIV antibody detection and differentiation: lc#[id number] Performed By: #### L 3890.6102, L3890.6006, BTS, L3890.6301, L509.8002, L100.0100, L501.9985, L509.4006 ####[facility] [address] [place], [place], [id number] Hematocrit Auto (Bld) [Volum e fraction]Ordered By: Jerome De Anda on 10-19-2024 Hematocrit (Bld) [Volume fraction] 37.7 % 37-47 [facility] Hemoglobin A1con 10-19-2024 HbA1c (Bld) [Mass fraction] 5.2 % Normal <=5.6 [facility] Comment on above: Result Comment: Norm al < 5.7 % Prediabetic 5.7 - 6.4 % Diabetic >or= 6.5 % Please note range changes. Performed By: #### L 3890.6102, L3890.6006, BTS, L3890.6301, L509.8002, L100.0100, L501.9985, L509.4006 ####[facility] [address] [place], [place], [id number] Hemoglobin A1c percentageOrd ered By: Jerome De Anda on 10-19-2024 HbA1c (Bld) [Mass fraction] 5.2 % <5.7 [facility] Comment on above: Normal < 5.7 % Predi abetic 5.7 - 6.4 % Diabetic >or= 6.5 % Please note range changes. Hemoglobin measurementOrdere d By: Jerome De Anda on 10-19-2024 Hemoglobin (Bld) [Mass/Vol] 12.2 g/dL 12.0-15.0 [facility] Hepatitis C Antibodyon 10-19 Hepatitis C Ab Non-Reactive Normal Nonreactive [facility] Comment on above: Result Comment: Reac tive: Presumptive evidence of antibodies to HCV. Follow CDC recommendations for supplemental testing. Non-Reactive: Antibodies to HCV were not detected; does not exclude the possibility of exposure to HCV Reactive Results are presumptive evidence of antibodies to HCV. Follow CDC recommendations for supplemental testing. Order confirmation testing: HCV Quant by PCR testing - HCVPCR lc#[id number] Non Reactive: < 0.8 Equivocal: >/= 0.8 to < 1.0 Reactive: >/= 1.0 The CDC requires that a reactive/equivocal HCV antibody result be sent out for confirmation. HCV Quant by PCR testing. Performed By: #### L 3890.6102, L3890.6006, BTS, L3890.6301, L509.8002, L100.0100, L501.9985, L509.4006 ####[facility] [address] [place], [address] Immature granulocytes/100 WB C Auto (Bld)Ordered By: Jerome De Anda on 10-19-2024 Immature granulocytes/100 WBC (Bld) 0.200 % 0.0-0.9 [facility] Comment on above: IG% - Immature Granu locytes (promyelocytes, myelocytes and metamyelocytes) > 1% indicates that a LEFT SHIFT is Present. L3890.6102on 10-19-2024 HEP B Surf Ag Non-Reactive Normal Nonreactive [facility] Comment on above: Result Comment: Reac tive: Presumptive evidence of HBV. Repeatedly reactive samples must be confirmed using a neutralization test ([employer] HBsAg Confirmatory Test) Non-Reactive: HBsAg not detected; does not exclude the possibility of exposure to HBV Performed By: #### L 3890.6102, L3890.6006, BTS, L3890.6301, L509.8002, L100.0100, L501.9985, L509.4006 ####[facility] [address] [place], [address] L509.4006on 10-19-2024 Rubella IgG REAC Normal Nonreactive [facility] Comment on above: Result Comment: Anti body Result: Interpretation Non-Reactive: Non-Immune Reactive: Immune The following results were obtained with the [employer] Rubella IgG assay. Results from assays of other manufacturers cannot be used interchangeably. Performed By: #### L 3890.6102, L3890.6006, BTS, L3890.6301, L509.8002, L100.0100, L501.9985, L509.4006 ####[facility] [address] [address] [place], [place], [address] Laboratory - Microbiology an d Antimicrobial susceptibilityOrdered By: Jerome De Anda on 10-19-2024 HBV surface Ag Ql (S) Non-Reactive Nonreactive [facility] Comment on above: Reactive: Presumptiv e evidence of HBV. Repeatedly reactive samples must be confirmed using a neutralization test ([employer] HBsAg Confirmatory Test)Non-Reactive: HBsAg not detected; does not exclude the possibility of exposure to HBV MCV (mean corpuscular volume ) determinationOrdered By: Jerome De Anda on 10-19-2024 MCV (RBC) [Entitic vol] 85.1 fL 81-99 [facility] Mean corpuscular hemoglobin (MCH) determinationOrdered By: Jerome De Anda on 10-19-2024 MCH (RBC) [Entitic mass] 27.5 pg 27.0-32.0 [facility] Mean corpuscular hemoglobin concentration (MCHC) determinationOrdered By: Jerome De Anda on 10-19-2024 MCHC (RBC) [Mass/Vol] 32.4 g/dL 32-36 [facility] Mean platelet volume determi nationOrdered By: Jerome De Anda on 10-19-2024 Platelet mean volume (Bld) [Entitic vol] 10.0 fL 6.2-12.0 [facility] Monocyte percentageOrdered B y: Jerome De Anda on 10-19-2024 Monocytes/100 WBC (Bld) 5.8 % 0-10 [facility] Neisseria gonorrhoeae nuclei c acid detection by amplified probe techniqueOrdered By: Jerome De Anda on 10-19-2024 N. gonorrhoeae DNA CHRISTOPHER+probe Ql (Unsp spec) Negative Negative [facility] Comment on above: Performed at: [address] [id number] Director: Estephania Ovalle MD, Phone: [phone] Neutrophil percentageOrdered By: Jerome De Anda on 10-19-2024 Neutrophils/100 WBC (Bld) 76.4 % High 47-70 [facility] No Panel InformationOrdered By: Jerome De Anda on 10-19-2024 HIV (1&2) Antibody Non-Reactive Nonreactive [facility] Comment on above: Non-ReactiveReactive Repeatedly reactive samples must be confirmed according to CDC recommended confirmatory algorithms. The subresults for either HIVAG or AHIV can be used as an aid in the selection of the confirmation algorithm for reactive samples.Send out specimens with Reactive results to [facility] for confirmation.Order the HIV antibody detection and differentiation: #[id number] Nucleated red blood cell per centageOrdered By: Jerome De Anda on 10-19-2024 Nucleated RBC/100 WBC (Bld) [Ratio] 0 % 0-5 [facility] Auto Mechanic Supervisor Office Visit Reporton 10-19-2024 Auto Mechanic Supervisor Office Visit Report [facility] [address], [address] [place] [address] OFFICE VISIT Date of Service: 10/19/24 MR#: [id number] Acct: [id number] Name: LACY MACIAS Rep #: [id number] : 1995 Provider: JAN Prieto ams Age/Sex: 29/F [place] [facility] [place] Status: Signed Intake Vital Signs 06/07/24 15:04 10/19/24 13:07 Height 5 ft 7 in 5 ft 7 in Weight: 256 lb 5 oz BMI 40.1 BP 116/75 Intake Visit Reasons: *EST* NOB LMP 08/05, STEPHAN 3/5 Chief Complaint: New OB Dry Folder Cloth Required: No Is patient in pain?: No Allergies mike Allergy (Severe, Verified 10/19/24 13:05) Anaphylaxis adhesive Allergy (Intermediate, Verified 10/19/24 13:05) Rash Sulfa (Sulfonamide Antibiotics) Adverse Reaction (Intermediate, Verified 10/19/24 13:05) Diarrhea Medications ???Medication ???Instructions ???Recorded ???Confirmed ???Type multivit-min no.71-iron fum 28 cap PO 10/07/24 10/19/24 History mg-folate no.1 1 mg-dha 300 mg capsule (PNV-[place]) Last Menstrual Period: 08/01/24 PFSH PFSH Medical History (spontaneous vaginal delivery) Chemical Social History adopted: No household members: spouse and family housing: house number of children: 1 current occupational status: employed current occupation: [employer] current occupational exposures/hazards: Yes (extreme heat) pets and animals: Yes (Avoid litterbox) pets and animals: cat(s) and other details: [facility] history of recent travel: Yes ([place]) out [...] 5-6 times per week duration: 60-90 minutes/day janae/shinto: Episcopalian seatbelt use: always do you feel safe [...] term 7lb 5oz Male epidural [facility] L [place] Trevizo Leonardo Delivery Date: 03/05/24 Last Updated [...] Carrier: O (more content not included)... Normal [facility] Platelet countOrdered By: Wilner De Anda on 10-19-2024 Platelets (Bld) [#/Vol] 372 10*3/uL 150-450 [facility] [facility] RBC Auto (Bld) [#/Vol]Ordere d By: Jerome De Anda on 10-19-2024 RBC (Bld) [#/Vol] 4.43 10*6/uL 4.2-5.4 [facility] Syphilis Antibodieson 2024 Syphilis Abs Non-Reactive Normal Nonreactive [facility] Comment on above: Performed By: #### L 3890.6102, L3890.6006, BTS, L3890.6301, L509.8002, L100.0100, L501.9985, L509.4006 ####[facility] [address] [place], [place], [id number] Type AND Screenon 10-19-2024 Ab SCREEN GEL Negative Normal [facility] Comment on above: Order Comment: PN Performed By: #### L 3890.6102, L3890.6006, BTS, L3890.6301, L509.8002, L100.0100, L501.9985, L509.4006 ####[facility] [address] [place], [place], [address] Urine cultureOrdered By: Kalpesh De Anda on 10-19-2024 Bacteria identified Cx Nom (U) Culture exhibits no growth. [facility] White blood cell (WBC) count Ordered By: Jerome De Anda on 10-19-2024 WBC (Bld) [#/Vol] 10.7 10*3/uL 4.4-11.0 [facility] Transvaginal w/Preg USon Transvaginal w/Preg US [facility] Imaging Services [address] [place], [place] [address] Transvaginal w/Preg US MR#: [id number] Acct: [id number] Name: LACY MACIAS Rep #: [id number] : 1995 F 29 From: Sharath Minaya MD PCP: Care Physician,No Primary Status: REG CLI Study: Transvaginal w/Preg US Date of Exam: 10/08/24 Exam# [id number] Ordering Dr: Mely Castillo PROCEDURE: TRANSVAGINAL W/PREG [...] intrauterine gestation, as described above. Reading Location[facility] CC: Dr. Mely Castillo MD; No Primary Care Physician Evaluation Engineer: Signed Normal [facility] Serum human chorionic gonado tropin detection for pregnancyOrdered By: Mely Castillo on 09-30-2024 HCG ( test) Ql 460 mIU/mL High <9 [facility] Comment on above: Gestational Age0.2-1 Week: 5-50 mIU/mL1-2 Weeks: 50-500 mIU/mL2-3 Weeks: 100-5000 mIU/mL3-4 Weeks: 500-10,000 mIU/mL4-5 Weeks:1000-50,000 mIU/mL5-6 Weeks: 10,000-100,000 mIU/mL6-8 Weeks: 15,000-200,000 mIU/mL2-3 Months:10,000-100,000 mIU/mL hCG Titer Quant., Serumon HCG QUANT. 460 mIU/mL High <9 non-preg [facility] Comment on above: Result Comment: Gest ational Age 0.2-1 Week: 5-50 mIU/mL 1-2 Weeks: 50-500 mIU/mL 2-3 Weeks: 100-5000 mIU/mL 3-4 Weeks: 500-10,000 mIU/mL 4-5 Weeks:1000-50,000 mIU/mL 5-6 Weeks: 10,000-100,000 mIU/mL 6-8 Weeks: 15,000-200,000 mIU/mL 2-3 Months:10,000-100,000 mIU/mL Performed By: #### L 700.8000 ####[facility] [address], [place], [address] Serum human chorionic gonado tropin detection for pregnancyOrdered By: Mely Castillo on 09-28-2024 HCG ( test) Ql 185 mIU/mL High <9 [facility] Comment on above: Gestational Age0.2-1 Week: 5-50 mIU/mL1-2 Weeks: 50-500 mIU/mL2-3 Weeks: 100-5000 mIU/mL3-4 Weeks: 500-10,000 mIU/mL4-5 Weeks:1000-50,000 mIU/mL5-6 Weeks: 10,000-100,000 mIU/mL6-8 Weeks: 15,000-200,000 mIU/mL2-3 Months:10,000-100,000 mIU/mL hCG Titer Quant., Serumon HCG QUANT. 185 mIU/mL High <9 non-preg [facility] Comment on above: Result Comment: Gest ational Age 0.2-1 Week: 5-50 mIU/mL 1-2 Weeks: 50-500 mIU/mL 2-3 Weeks: 100-5000 mIU/mL 3-4 Weeks: 500-10,000 mIU/mL 4-5 Weeks:1000-50,000 mIU/mL 5-6 Weeks: 10,000-100,000 mIU/mL 6-8 Weeks: 15,000-200,000 mIU/mL 2-3 Months:10,000-100,000 mIU/mL Performed By: #### L 700.8000 ####[facility] [address] [place], [address] HCG ( test) QlOrder ed By: Jerome De Anda on 06-07-2024 Human Chorionic Gonadotropin, Quant < 1 mIU/mL <9 [facility] Comment on above: Gestational Age0.2-1 Week: 5-50 mIU/mL1-2 Weeks: 50-500 mIU/mL2-3 Weeks: 100-5000 mIU/mL3-4 Weeks: 500-10,000 mIU/mL4-5 Weeks:1000-50,000 mIU/mL5-6 Weeks: 10,000-100,000 mIU/mL6-8 Weeks: 15,000-200,000 mIU/mL2-3 Months:10,000-100,000 mIU/mL Laboratory - Chemistry and C hemistry - challengeOrdered By: Jerome De Anda on 06-07-2024 HCG ( test) Ql (U) Negative [facility] Auto Mechanic Supervisor Office Visit Reporton 06-07-2024 Auto Mechanic Supervisor Office Visit Report [facility]'s [address], [address] [place] [address] OFFICE VISIT Date of Service: 06/07/24 MR#: [id number] Acct: [id number] Name: LACY MACIAS Rep #: [id number] : 1995 Provider: JAN Prieto ams Age/Sex: 29/F [place] [facility] [place]: Signed Intake Vital Signs 04/16/24 11:09 06/07/24 15:02 06/07/24 15:04 Height 5 ft 7 in 5 ft 7 in 5 ft 7 in Weight: 257 lb 2 oz BMI 40.2 BP 131/83 H Intake Visit Reasons: 6 week follow-up PP depression Chief Complaint: 6wk Depression FU Dry Folder Cloth Required: No Is patient in pain?: No [...] family current occupational status: employed current occupation: [employer] current occupational exposures/hazards: Yes (extreme heat) pets [...] 5-6 times per week duration: 60-90 minutes/day janae/shinto: Episcopalian seatbelt use: always do you feel safe at home: Yes additional social history: Leonardo HPI 6 week follow-up PP depression Details: LACY COLLEEN is a 29 year old who presents [...] Urine Neg (more content not included)... Normal [facility] Serum human chorionic gonado tropin detection for pregnancyOrdered By: Jerome De Anda on 06-07-2024 HCG ( test) Ql < 1 mIU/mL <9 [facility] Comment on above: Gestational Age0.2-1 Week: 5-50 mIU/mL1-2 Weeks: 50-500 mIU/mL2-3 Weeks: 100-5000 mIU/mL3-4 Weeks: 500-10,000 mIU/mL4-5 Weeks:1000-50,000 mIU/mL5-6 Weeks: 10,000-100,000 mIU/mL6-8 Weeks: 15,000-200,000 mIU/mL2-3 Months:10,000-100,000 mIU/mL hCG Titer Quant., Serumon HCG QUANT. < 1 Normal <9 non-preg [facility] Comment on above: Result Comment: Gest ational Age 0.2-1 Week: 5-50 mIU/mL 1-2 Weeks: 50-500 mIU/mL 2-3 Weeks: 100-5000 mIU/mL 3-4 Weeks: 500-10,000 mIU/mL 4-5 Weeks:1000-50,000 mIU/mL 5-6 Weeks: 10,000-100,000 mIU/mL 6-8 Weeks: 15,000-200,000 mIU/mL 2-3 Months:10,000-100,000 mIU/mL Performed By: #### L 700.8000 ####[facility] [address] [place], [address] Auto Mechanic Supervisor Office Visit Reporton 04-16-2024 Auto Mechanic Supervisor Office Visit Report [facility]'s [address], [address] [place] [address] OFFICE VISIT Date of Service: 04/16/24 MR#: [id number] Acct: [id number] Name: LACY MACIAS Rep #: [id number] : 1995 Provider: JAN Prieto ams Age/Sex: 28/F [place] [facility] [place]: Signed Intake Vital Signs 03/08/24 10:10 [...] 04/16/24 04/16/24 Rx #28 caps : Yes [facility] Medical History (Updated 04/16/24 @ 11:11 by Jerome De Anda CNM) Supervision of high-risk Obesity affecting Non-reactive NST (non-stress test) Amenorrhea Chemical Social History adopted: No household members: spouse and family current occupational status: employed current occupation: [employer] current occupational exposures/hazards: Yes (extreme heat) pets [...] 5-6 times per week duration: 60-90 minutes/day janae/shinto: Episcopalian seatbelt use: always do you feel safe [...] 7lb 5oz Male epidural WC L harvinder Trevizo Leonardo Delivery Date: 03/05/24 [...] and colleagues, with an educational sydni from [employer]. Post HPI 6 wk ppv: Details: LACY MACIAS is a 28 year old who presents for her post visit. concerns with depression sx. no thoughts of self harm or harming . Feeding: Breast Menses resumed: No [place] since delivery: Yes Emotional Support: Yes Last Pap:: 07/24/23 Control Method: NFP Coding Level of Care Code No Charge (more content not included)... Normal [facility] 03-08-2024 MR/BMS.[facility] Care [address] [place] [address] OFFICE VISIT Date of Service: 03/08/24 MR#: [id number] Acct: [id number] Name: LACY MACIAS Rep #: [id number] : 1995 Provider: Dunia Walters NP Age/Sex: 28/F Location[place] [facility] [place] Status: Signed Intake Vital Signs 03/04/24 09:21 03/08/24 10:10 Height 5 ft 7 in 5 ft 7 in Intake Visit Reasons: assessment Chief Complaint: assessment Allergies mike Allergy (Severe, Verified 03/04/24 13:54) Anaphylaxis adhesive Allergy (Intermediate, Verified 03/04/24 13:54) Rash Sulfa (Sulfonamide Antibiotics) Adverse Reaction (Intermediate, Verified 03/04/24 13:54) Diarrhea : Yes PFSH PFS Medical History (Updated 03/12/24 @ 00:01 by Norbert Horta) Non-reactive NST (non-stress test) Amenorrhea Chemical Social History adopted: No household members: spouse and family current occupational status: employed current occupation: [employer] current occupational exposures/hazards: Yes (extreme heat) pets [...] 5-6 times per week duration: 60-90 minutes/day janae/shinto: Episcopalian seatbelt use: always do you feel safe [...] 39 live - full term Male epidural [facility] robson Trevizo Leonardo Delivery Date: 03/05/24 Last Updated by: Salma Lynn IOL BPP 06/15 HPI HPI HPI: LACY MACIAS, is [...] with PRN. Coding Level of Care Code 98948 PRVT COUNSELING INDIVID Diagnoses Care and examination of lactating mother Z39.1 Time Spent (min) 03/15/24 1412 Date Dunia Walters NP SUPERVISOR PILE [employer]IVING-C Dashawn Signature: Date (if applicable) CC: Normal [facility] Discharge Instructionon 02-08 Discharge Instruction [facility] Medical Records Department [address] [place] [address] Instructions for Home/Discharge Instructions 03/05/24 1115 MR#: [id number] Acct: [id number] Name: LACY MACIAS Rep #: [id number] : 1995 28 From: Barbie Trevizo CNM [...] Provider: Barbie Trevizo Primary Care Provider: Care Physician,No Primary Discharge Orders/Prescriptions Prescriptions: No Action PNV-DHA 27 mg iron-1 mg -300 mg capsule 1 cap PO DAILY famotidine [Pepcid] 20 mg tablet 20 mg PO DAILY Qty: 30 6RF Referrals / Follow Up: Care Physician,No Primary [Primary Care Provider] - 03/05/24 1115 Barbie Trevizo CNM CC: No Primary Care Physician Signed [facility] MR/OB.VAGDELIon 03-05-2024 MR/OB.VAGDELI [facility] Medical Records Department [address] [place] [address] OB VAGINAL DELIVERY 03/05/24 1110 MR#: [id number] Acct: [id number] Name: LACY MACIAS Rep #: [id number] : 1995 From: Barbie Trevizo CNM PCP: Care Physician,No Primary Status:ADM IN Location: DT113-1 Assessment Plan (1) (spontaneous vaginal delivery): COMMENT: [...] by the rest of the and the was placed on the maternal abdomen. spontaneous [...] Vessel Description: 3 Vessels Cord Entanglement: None A Gender: Male (1 minute): 8 (5 minute): 9 Delayed Cord Clamping: Yes Post Vaginal Deli Medications given after delivery: IV Pitocin and Other (cytotec) Laceration: 1st degree Complication Complications: No Procedures Urinary/Genital 52xxx-59xxx: 34015 Vaginal Delivery [facility] 03/05/24 1115 Cosigner Signature (if applicable): CC: JAN Trevizo; No Primary Care Physician Signed Normal [facility] AST(SGOT)on 03-04-2024 AST [Catalytic activity/Vol] 15 U/L Normal 15-37 [facility] Comment on above: Performed By: #### L 501.1105, L501.4405, L501.4100, L501.0900, L501.1400 #### [facility] Laboratory [address] [place], [address] Absolute neutrophil countOrd ered By: Jerome De Anda on 03-04-2024 Neutrophils (Bld) [#/Vol] 10.4 10*3/uL High 2.0-7.7 [facility] Alanine Aminotransferas (SGP T)on 03-04-2024 ALT [Catalytic activity/Vol] 27 U/L Normal 13-56 [facility] Comment on above: Performed By: #### L 501.1105, L501.4405, L501.4100, L501.0900, L501.1400 ####[facility] [address] [facility] [place], [place], [id number] Basophil percentageOrdered B y: Jerome De Anda on 03-04-2024 Basophils/100 WBC (Bld) 0.4 % 0-1 [facility] Biophysical Prof W/O Non Str eson 03-04-2024 Biophysical Prof W/O Non Stres [facility] Imaging Services [address] [place], [place] [address] Biophysical Prof W/O Non Stres MR#: [id number] Acct: [id number] Name: LACY MACIAS Rep #: [id number] : 1995 F 28 From: Yulisa mccullough MD PCP: Care Physician,No Primary Status: ADM IN Study: Biophysical Prof W/O Non Stres Date of Exam: 1 05/05/23 Exam# [id number] Ordering Dr: Jerome De Anda CNM ADDENDUM by Dr. Yulisa Bazzi MD on 03/04/24 at 1320 [id number] HISTORY: r/o pre-e, decreased movement. TECHNIQUE: Transabdominal [...] Signed: Yulisa Bazzi MD at 13:20 EST Reading Location ID and State: [facility] / [place] Tel , Service support , 03/04/24 1401 Date cc: JAN De Anda; No Primary Care Physician * Signed We are attempting to reach an attending provider to discuss findings. An addendum with communication details will be sent when the communication is complete. [id number] HISTORY: r/o pre-e, decreased movement. TECHNIQUE: Transabdominal [...] Signed: Yulisa Bazzi MD at 13:20 EST Reading Location ID and State: [facility] / [place] Tel , Service support , CC: JAN De Anda; No Primary Care Physician Evaluation Engineer: Signed Normal [facility] CBC W/Diff, Automatedon 12-2 Absolute Lymph 2.04 X10 3/uL Normal 0.83-4.51 [facility] Comment on above: Performed By: #### L 509.8000 #### [facility] [address] [place], [place], [address] Absolute Neut 10.4 X10 3/uL High 2.0-7.7 [facility] Comment on above: Performed By: #### L 509.8000 #### [facility] [address] [place], [address] Basophils/100 WBC (Bld) 0.4 % Normal 0-1 [facility] Comment on above: Performed By: #### L 509.8000 #### [facility] [address] [place], [address] Eosinophils/100 WBC (Bld) 0.3 % Normal 0-5 [facility] Comment on above: Performed By: #### L 509.8000 #### [facility] [address] [place], [address] Erythrocyte distribution width (RBC) [Ratio] 13.4 % Normal 11.6-14.6 [facility] Comment on above: Performed By: #### L 509.8000 #### [facility] [address] [place], [address] Hematocrit (Bld) [Volume fraction] 37.8 % Normal 37-47 [facility] Comment on above: Performed By: #### L 509.8000 #### [facility] [address] [place], [address] Hemoglobin (Bld) [Mass/Vol] 12.3 g/dL Normal 12.0-15.0 [facility] Comment on above: Performed By: #### L 509.8000 #### [facility] [address] [place], [address] IG% 0.600 Normal 0.0-0.9 [facility] Comment on above: Result Comment: IG% - Immature Granulocytes (promyelocytes, myelocytes and metamyelocytes) > 1% indicates that a LEFT SHIFT is Present. Performed By: #### L 509.8000 #### [facility] [address] [place], [address] Lymphocytes/100 WBC (Bld) 15.5 % Low 19-41 [facility] Comment on above: Performed By: #### L 509.8000 #### [facility] [address] [place], [address] MCH (RBC) [Entitic mass] 29.1 pg Normal 27.0-32.0 [facility] Comment on above: Performed By: #### L 509.8000 #### [facility] [address] [place], [address] MCHC (RBC) [Mass/Vol] 32.5 g/dL Normal 32-36 [facility] Comment on above: Performed By: #### L 509.8000 #### [facility] [address] [place], [address] MCV (RBC) [Entitic vol] 89.6 fL Normal 81-99 [facility] Comment on above: Performed By: #### L 509.8000 #### [facility] [place], [address] Monocytes/100 WBC (Bld) 4.8 % Normal 0-10 [facility] Comment on above: Performed By: #### L 509.8000 #### [facility] [place], [address] Neutrophils/100 WBC (Bld) 78.4 % High 47-70 [facility] Comment on above: Performed By: #### L 509.8000 #### [facility] [address] [place], [address] Nucleated RBC (Bld) [#/Vol] 0 10*3/uL Normal 0-5 [facility] Comment on above: Performed By: #### L 509.8000 #### [facility] [address] [place], [address] Platelet mean volume (Bld) [Entitic vol] 10.9 fL Normal 6.2-12.0 [facility] Comment on above: Performed By: #### L 509.8000 #### [facility] [address] [place], [address] Platelets (Bld) [#/Vol] 303 10*3/uL Normal 150-450 [facility] Comment on above: Performed By: #### L 509.8000 #### [facility] [address] [place], [address] RBC (Bld) [#/Vol] 4.22 10*6/uL Normal 4.2-5.4 [facility] Comment on above: Performed By: #### L 509.8000 #### [facility] [address] [place], [address] RDW SD 43.7 fl Normal 35.1-43.9 [facility] Comment on above: Performed By: #### L 509.8000 #### [facility] [address] [place], [address] WBC (Bld) [#/Vol] 13.2 10*3/uL High 4.4-11.0 [facility] Comment on above: Performed By: #### L 509.8000 #### [facility] [address] [place], [address] Eosinophil percentageOrdered By: Jerome De Anda on 03-04-2024 Eosinophils/100 WBC (Bld) 0.3 % 0-5 [facility] Erythrocyte distribution wid th (RBC) [Ratio]Ordered By: Jerome De Anda on 03-04-2024 Erythrocyte distribution width (RBC) [Entitic vol] 43.7 fL 35.1-43.9 [facility] Erythrocyte distribution wid th ratioOrdered By: Jerome De Anda on 03-04-2024 Erythrocyte distribution width (RBC) [Ratio] 13.4 % 11.6-14.6 [facility] Estimated glomerular filtrat ion rate (GFR) AmericanOrdered By: Jerome De Anda on 03-04-2024 Estimated GFR (MDRD) Amer 150 mL/min >60 [facility] Comment on above: GFR Calc Estimation of creatinine maury aranceOrdered By: Jerome De Anda on 03-04-2024 Estimated Creatinine Clearance Calc 191.29 ml/min [facility] Glomerular filtration rate ( GFR) estimationOrdered By: Jerome De Anda on 03-04-2024 Estimated GFR (MDRD) Non-Af Amer 124 mL/min >60 [facility] Comment on above: Non- GFR Calc H AND P Exam - OB/GYNon 12- H&P Exam - UNDERWRITING ASSISTANT [facility] Medical Records Department [address] [place] [address] H P Exam - UNDERWRITING ASSISTANT 03/04/24 1318 MR#: [id number] Acct: [id number] Name: LACY MACIAS Rep #: [id number] : 1995 28 From: Jerome De Anda CNM PCP: Care Physician,No Primary Status:ADM IN Location: YI127-1 HPI - General General Date of Admission: [...] family current occupational status: employed current occupation: [employer] current occupational exposures/hazards: Yes (extreme heat) pets [...] 5-6 times per week duration: 60-90 minutes/day janae/shinto: Episcopalian seatbelt use: always do you feel safe at home: Yes additional social history: Leonardo History 2 Elective abortions Hx Para 0 Spontaneous abortions 1 Hx # Term Pregnancies Ectopic pregnancies Hx # Pregnancies Multiple births # of living children 0 Past Pregnancies Del. Date Name GA/Weeks Outcome Route Bth Weight Gen Labor Lgth Anesthesia Del [facility] Provider FOB 05/09/22 5 spontaneous Visit Details [...] ???-???-???-???-???-???- SM (more content not included)... Normal [facility] Hematocrit Auto (Bld) [Volum e fraction]Ordered By: Jerome De Anda on 03-04-2024 Hematocrit (Bld) [Volume fraction] 37.8 % 37-47 [facility] Hemoglobin measurementOrdere d By: Jerome De Anda on 03-04-2024 Hemoglobin (Bld) [Mass/Vol] 12.3 g/dL 12.0-15.0 [facility] Immature granulocytes/100 WB C Auto (Bld)Ordered By: Jerome De Anda on 03-04-2024 Immature granulocytes/100 WBC (Bld) 0.600 % 0.0-0.9 [facility] Comment on above: IG% - Immature Granu locytes (promyelocytes, myelocytes and metamyelocytes) > 1% indicates that a LEFT SHIFT is Present. L509.8000on 03-04-2024 Syphilis Abs Non-Reactive Normal [facility] Comment on above: Performed By: #### L 509.8000 #### [facility] [address] [place] [address], [id number] Laboratory - Chemistry and C hemistry - challengeOrdered By: Jerome De Anda on 03-04-2024 AST [Catalytic activity/Vol] 15 U/L 15-37 [facility] Lymphocytes Auto (Unsp spec) [#/Vol]Ordered By: Jerome De Anda on 03-04-2024 Lymphocytes (Bld) [#/Vol] 2.04 10*3/uL 0.83-4.51 [facility] Lymphocytes/100 WBC Auto (Un sp spec)Ordered By: Jerome De Anda on 03-04-2024 Lymphocytes/100 WBC (Bld) 15.5 % Low 19-41 [facility] MCV (mean corpuscular volume ) determinationOrdered By: Jerome De Anda on 03-04-2024 MCV (RBC) [Entitic vol] 89.6 fL 81-99 [facility] Mean corpuscular hemoglobin (MCH) determinationOrdered By: Jerome De Anda on 03-04-2024 MCH (RBC) [Entitic mass] 29.1 pg 27.0-32.0 [facility] Mean corpuscular hemoglobin concentration (MCHC) determinationOrdered By: Jerome De Anda on 03-04-2024 MCHC (RBC) [Mass/Vol] 32.5 g/dL 32-36 [facility] Mean platelet volume determi nationOrdered By: Jerome De Anda on 03-04-2024 Platelet mean volume (Bld) [Entitic vol] 10.9 fL 6.2-12.0 [facility] Monocyte percentageOrdered B y: Jerome De Anda on 03-04-2024 Monocytes/100 WBC (Bld) 4.8 % 0-10 [facility] Neutrophil percentageOrdered By: Jerome De Anda on 03-04-2024 Neutrophils/100 WBC (Bld) 78.4 % High 47-70 [facility] Nucleated red blood cell per centageOrdered By: Jerome De Anda on 03-04-2024 Nucleated RBC/100 WBC (Bld) [Ratio] 0 % 0-5 [facility] Auto Mechanic Supervisor Office Visit Reporton 03-04-2024 Auto Mechanic Supervisor Office Visit Report [facility], [address] [place] [address] OFFICE VISIT Date of Service: 03/04/24 MR#: [id number] Acct: [id number] Name: LACY MACIAS Rep #: [id number] : 1995 Provider: Dr. Mely harmon MD Age/Sex: 28/F [place] [facility] Status: Signed Intake Vital Signs 12/25/23 09:44 02/27/24 09:40 03/04/24 08:38 03/04/24 08:39 03/04/24 09:00 Height 5 ft 7 in 5 ft 7 in 5 ft 7 in 5 ft 7 in Weight: 279 lb 4 oz BMI 43.7 BP 140/84 H 134/85 H 134/84 H Intake Visit Reasons: 39 WK OB Dry Folder Cloth Required: No Is patient in pain?: No [...] family current occupational status: employed current occupation: [employer] current occupational exposures/hazards: Yes (extreme heat) pets [...] 5-6 times per week duration: 60-90 minutes/day janae/shinto: Episcopalian seatbelt use: always do you feel safe at home: Yes additional social history: Leonardo History 2 Elective abortions Hx Para 0 Spontaneous abortions 1 Hx # Term Pregnancies Ectopic pregnancies Hx # Pregnancies Multiple births # of living children 0 Past Pregnancies Del. Date Name GA/Weeks Outcome Route Bth Weight Gen Labor Lgth Anesthesia Del [place] Provider FOB 05/09/22 5 spontaneous HPI 39 [...] -???-???-???-???-???-???- ???-???-???-???-??? (more content not included)... Normal [facility] Platelet countOrdered By: Wilner De Anda on 03-04-2024 Platelets (Bld) [#/Vol] 303 10*3/uL 150-450 [facility] Protein+Creatinine Ratio,Uri neon 03-04-2024 PROT:CRE RATIO 80 mg/g CRE Normal 0-200 [facility] Comment on above: Performed By: #### L 501.1105, L501.4405, L501.4100, L501.0900, L501.1400 #### [facility] [address] [place], [address] Protein (U) [Mass/Vol] 15.6 mg/dL High <11.9 [facility] Comment on above: Performed By: #### L 501.1105, L501.4405, L501.4100, L501.0900, L501.1400 #### [facility] [address] [place], [address] UR CREAT 196.00 mg/dL Normal NO RANGE EST. [facility] Comment on above: Performed By: #### L 501.1105, L501.4405, L501.4100, L501.0900, L501.1400 #### [facility] [address] [place], [address] Protein/Creatinine (U) [Mass ratio]Ordered By: Jerome De Anda on 03-04-2024 Urine Protein/Creatinine Ratio 80 mg/g CRE 0-200 [facility] RBC Auto (Bld) [#/Vol]Ordere d By: Jerome De Anda on 03-04-2024 RBC (Bld) [#/Vol] 4.22 10*6/uL 4.2-5.4 [facility] Random urine protein measure mentOrdered By: Jerome De Anda on 03-04-2024 Protein (U) [Mass/Vol] 15.6 mg/dL High 0.0-11.8 [facility] Serum Creatinine AND GFRon 1 05-05-2023 Creatinine [Mass/Vol] 0.61 mg/dL Normal 0.55-1.02 [facility] Comment on above: Result Comment: The validity of the calculated GFR GFRAA in patients over 70 years has not been determined. Clinical correlation is essential. Performed By: #### L 501.1105, L501.4405, L501.4100, L501.0900, L501.1400 #### [facility] [address] [place], [address] ECRCL 191.29 ml/min Normal [facility] Comment on above: Performed By: #### L 501.1105, L501.4405, L501.4100, L501.0900, L501.1400 #### [facility] [address] [place], [place], [id number] EST GFR - AA 150 mL/min Normal >60 [facility] Comment on above: Result Comment: Afri can Panamanian GFR Calc Performed By: #### L 501.1105, L501.4405, L501.4100, L501.0900, L501.1400 #### [facility] [address] [place], [place], [id number] GFR/1.73 sq M.predicted among non-blacks MDRD (S/P/Bld) [Vol rate/Area] 124 mL/min/{1.73_m2} Normal >60 [facility] Comment on above: Result Comment: Non- GFR Calc Performed By: #### L 501.1105, L501.4405, L501.4100, L501.0900, L501.1400 #### [facility] [address] [place], [place], [address] Serum or plasma alanine villavicencio otransferase (ALT) measurementOrdered By: Jerome De Anda on 03-04-2024 ALT [Catalytic activity/Vol] 27 U/L 13-56 [facility] Serum or plasma creatinine m easurement (mass/volume)Ordered By: Jerome De Anda on 03-04-2024 Creatinine [Mass/Vol] 0.61 mg/dL 0.55-1.02 [facility] Comment on above: The validity of the calculated GFR & GFRAA in patients over 70 years has not been determined. Clinical correlation is essential. Serum or plasma uric acid me asurement (mass/volume)Ordered By: Jerome De Anda on 03-04-2024 Urate [Mass/Vol] 3.8 mg/dL 2.6-6.0 [facility] Comment on above: The drugs N-Acetylcy steine and Metamizole may falsely depress this assay. Treponema sp Ab Ql (S)Ordere d By: Jermoe De Anda on 03-04-2024 Syphilis Total Antibody Non-Reactive [facility] Type AND Screenon 03-04-2024 ABO and Rh group Nom (Bld) Blood group A Rh(D) positive Normal [facility] Comment on above: Order Comment: Labor Performed By: #### L 509.8000 #### [facility] [address] [place], [place], [id number] Uric Acidon 03-04-2024 URIC 3.8 mg/dL Normal 2.6-6.0 [facility] Comment on above: Result Comment: The drugs N-Acetylcysteine and Metamizole may falsely depress this assay. Performed By: #### L 501.1105, L501.4405, L501.4100, L501.0900, L501.1400 #### [facility] [address] [place], [place], [id number] Urine creatinine measurement (mass/volume)Ordered By: Jerome De Anda on 03-04-2024 Creatinine (U) [Mass/Vol] 196.00 mg/dL NO RANGE EST. [facility] White blood cell (WBC) count Ordered By: Jerome De Anda on 03-04-2024 WBC (Bld) [#/Vol] 13.2 10*3/uL High 4.4-11.0 [facility] Biophysical Prof W/O Non Str eson 03-01-2024 Biophysical Prof W/O Non Stres [facility] Imaging Services [address] [place], [place] [address] Biophysical Prof W/O Non Stres MR#: [id number] Acct: [id number] Name: LACY MACIAS Rep #: [id number] : 1995 F 28 From: Shakila Gaytan MD PCP: Care Physician,No Primary Status: REG CLI Study: Biophysical Prof W/O Non Stres Date of Exam: 05/02/23 Exam# [id number] Ordering Dr: Jerome De Anda [facility] [id number] INDICATION: Obesity affecting EXAMINATION: Ultrasound US Biophysical Profile W/O Nonst TECHNIQUE: Transabdominal pelvic ultrasound was performed. COMPARISON: Prior study dated: February 23, 2024 FINDINGS: INTRAUTERINE GESTATION(s): Single. HEART MOTION is 143 bpm. AMNIOTIC FLUID INDEX (RENAN): 10.4 BIOPHYSICAL PROFILE (BPP): 10/15 -- Breathin/2. -- Movement: 2/2. -- Tone: 2/2. --RENAN: 2/2. PRESENTATION: Cephalic PLACENTA: Posterior. US/Biophysical Prof W/O Non Stres IMPRESSION: Single live intrauterine with a biophysical profile of 10/15 . Electronically Signed: Shakila Gaytan MD at 9:20 EST , CC: JAN De Anda; No Primary Care Physician Evaluation Engineer: Signed Normal [facility] Auto Mechanic Supervisor Office Visit Reporton 02-27-2024 Auto Mechanic Supervisor Office Visit Report [facility] [address], [address] [place] [address] OFFICE VISIT Date of Service: 02/27/24 MR#: [id number] Acct: [id number] Name: LACY MACIAS Rep #: [id number] : 1995 Provider: Dr. Mely harmon MD Age/Sex: 28/F [place] [facility] [place]: Signed Intake Vital Signs 12/25/23 09:44 02/23/24 09:10 02/27/24 09:39 02/27/24 09:40 Height 5 ft 7 in 5 ft 7 in 5 ft 7 in 5 ft 7 in Weight: 278 lb 6 oz BMI 43.6 BP 120/77 Intake Visit Reasons: 38 WK ob Dry Folder Cloth Required: No Is patient in pain?: Yes [...] family current occupational status: employed current occupation: [employer] current occupational exposures/hazards: Yes (extreme heat) pets [...] 5-6 times per week duration: 60-90 minutes/day janae/shinto: Episcopalian seatbelt use: always do you feel safe at home: Yes additional social history: Leonardo History 2 Elective abortions Hx Para 0 Spontaneous abortions 1 Hx # Term Pregnancies Ectopic pregnancies Hx # Pregnancies Multiple births # of living children 0 Past Pregnancies Del. Date Name GA/Weeks Outcome Route Bth Weight Gen Labor Lgth Anesthesia Del Locatn Provider FOB 05/09/22 5 spontaneous HPI 38 [...] Negative 1 (more content not included)... Normal [facility] Biophysical Prof W/O Non Str eson 02-23-2024 Biophysical Prof W/O Non Stres [facility] Imaging Services [address] [place] [address] Biophysical Prof W/O Non Stres MR#: [id number] Acct: [id number] Name: LACY MACIAS Rep #: [id number] : 1995 F 28 From: Jonathan mathias MD PCP: Care Physician,No Primary Status: REG CLI Study: Biophysical Prof W/O Non Stres Date of Exam: 1 04/25/23 Exam# [id number] Ordering Dr: Jerome De Anda CNKeeyl [id number] STUDY: OBSTETRICAL ULTRASOUND - BIOPHYSICAL PROFILE REASON [...] Fluid Volume (AFV): 2 TOTAL SCORE: 8 US/Biophysical Prof W/O Non Stres IMPRESSION: biophysical profile of 08/15. Electronically Signed: Jonathan Fontaine MD at 9:21 EST , CC: JAN De Anda; No Primary Care Physician Evaluation Engineer: Signed Normal [facility] OB Triage Progress Noteon OB Triage Progress Note [facility] Medical Records Department [address] [place] [address] OB Triage Progress Note 02/23/24 1021 MR#: [id number] Acct: [id number] Name: LACY MACIAS Rep #: [id number] : 1995 28 From: Jerome De Anda CNM PCP: Care Physician,No Primary Status:REG CLI Y DOS: Location: [place] [address] Progress Notes Date of Service: 02/23/24 Progress Note: Patient presents for triage evaluation secondary to BPP 6/ at 37 weeks. FHT: 130 Moderate variability reactive no decelerations category I tracing [place]: no Contractions Assessment and plan: final BPP 8/10, Reactive NST, reassuring maternal and status patient discharged to home to follow-up in office. See problem list details for additional plan i nformation. Charges/Coding Multi Select Codes Urinary/Genital Urinary/Genital CPT Codes: 24965-23 non-stress test Interp Assessment Plan (1) NST [...] trimester COMMENT: A1C nl -BMI 42 at B plan growth us at 32 and [...] Anda; No Primary Care Physician Signed Normal [facility] OB Triage Physician Noteon 1 04-23-2023 OB Triage Physician Note [facility] Medical Records Department [address] [place] [address] OB Triage Physician Note 02/21/24 1058 MR#: [id number] Acct: [id number] Name: LACY MACIAS Rep #: [id number] : 1995 28 From: Barbie Trevizo CNM PCP: Care Physician,No Primary Status:DEP CLI Y Location: [facility] HPI - General General Date of Service: 02/20/24 HPI Narrative LACY MACIAS, is a 28 F who [id number] at 37.1 with drop in fhr on [...] family current occupational status: employed current occupation: [employer] current occupational exposures/hazards: Yes (extreme heat) pets [...] 5-6 times per week duration: 60-90 minutes/day janae/shinto: Episcopalian seatbelt use: always do you feel safe at home: Yes additional social history: Leonardo History 2 Elective abortions Hx Para 0 Spontaneous abortions 1 Hx # Term Pregnancies Ectopic pregnancies Hx # Pregnancies Multiple births # of living children 0 Past Pregnancies Del. Date Name GA/Weeks Outcome Route Bth Weight Gen Labor Lgth Anesthesia Del [facility] Provider FOB 05/09/22 5 spontaneous Visit Details [...] -???-???-???-???-???-???- ???-???-???-???-???-?? (more content not included)... Normal [facility] - Chemistry and C hemistry - challengeon 02-20-2024 Glucose Ql (U) Negative [facility] - Urinalysison Protein Ql (U) Negative [facility] Auto Mechanic Supervisor Office Visit Reporton 02-20-2024 Auto Mechanic Supervisor Office Visit Report [facility] [address], [address] [place] [address] OFFICE VISIT Date of Service: 02/20/24 MR#: [id number] Acct: [id number] Name: LACY MACIAS Rep #: [id number] : 1995 Provider: Dr. Yue Welch DO Age/Sex: 28/F [place] [facility] Status: Signed with Addenda ADDENDUM by Dr. Yue Patel DO on 02/20/24 at 1116 Office Procedure Documentation entered by Yue Patle DO 02/20/24 11:16: Non-stress Test Non-Stress Test [...] H Intake Visit Reasons: 37 WK OB Dry Folder Cloth Required: No Is patient in pain?: No [...] family current occupational status: employed current occupation: [employer] current occupational exposures/hazards: Yes (extreme heat) pets [...] 5-6 times per week duration: 60-90 minutes/day janae/shinto: Episcopalian seatbelt use: always do you feel safe at home: Yes additional social history: Leonardo History 2 Elective abortions Hx Para 0 Spontaneous abortions 1 Hx # Term Pregnancies Ectopic pregnancies Hx # Pregnancies Multiple births # of living children 0 Past Pregnancies Del. Date Name GA/Weeks Outcome Route Bth Weight Gen Labor [facility]est[facility] FOB 05/09/22 5 spontaneous HPI 37 [...] ???-???-???-???-???-???- 7w (more content not included)... Normal [facility] Rule out Beta Strep (Grp. B) on 02-15-2024 PAT Group B Beta Streptococcus is not isolated. Normal [facility] Comment on above: Performed By: #### L 400.0001, M100.2200 #### [facility] [address] [place], [place], [address] Biophysical Prof W/O Non Str eson 02-13-2024 Biophysical Prof W/O Non Stres [facility] Imaging Services [address] [place], [place] [address] Biophysical Prof W/O Non Stres MR#: [id number] Acct: [id number] Name: LACY MACIAS Rep #: [id number] : 1995 F 28 From: Jonathan mathias MD PCP: Care Physician,No Primary Status: REG CLI Study: Biophysical Prof W/O Non Stres Date of Exam: 1 04/15/23 Exam# [id number] Ordering Dr: Jerome De Anda CNM [id number] STUDY: OBSTETRICAL ULTRASOUND - BIOPHYSICAL PROFILE REASON [...] Signed: Jonathan Fontaine MD at 12:04 EST Reading Location ID and State: [facility] / [place] , Service support , CC: JAN De Anda; No Primary Care Physician Evaluation Engineer: Signed Normal [facility] OB Triage Progress Noteon OB Triage Progress Note [facility] Medical Records Department [address] [place] [address] OB Triage Progress Note 02/13/24 1211 MR#: [id number] Acct: [id number] Name: LACY MACIAS Rep #: [id number] : 1995 28 From: Jerome De Anda CNM PCP: Care Physician,No Primary Status:REG CLI Y DOS: Location: [place] [address] Progress Notes Date of Service: 02/13/24 Progress Note: Patient presents for triage evaluation secondary to nonreactive NST in the office at 36 weeks. FHT: 145 Moderate variability reactive no decelerations category I tracing [place]: no Contractions Assessment and plan: BPP 10/15, Reactive NST, reassuring maternal and status patient discharged to home to follow-up at next appt. See problem list details for additional plan information. Charges/Coding Multi Select Codes Urinary/Genital Urinary/Genital CPT Codes: 83743-95 non-stress test Interp Assessment Plan (1) Non-reactive NST (non-stress test): COMMENT: BPP 10/15, d/c home (2) Nausea and vomiting during [...] Anda; No Primary Care Physician Signed Normal [facility] Auto Mechanic Supervisor Office Visit Reporton 02-13-2024 Auto Mechanic Supervisor Office Visit Report [facility] [address], [address] [place] [address] OFFICE VISIT Date of Service: 02/13/24 MR#: [id number] Acct: [id number] Name: LACY MACIAS Rep #: [id number] : 1995 Provider: JAN [facility] Age/Sex: 28/F [place] [facility] [place]: Signed Intake Vital Signs 12/25/23 09:44 [...] family current occupational status: employed current occupation: [employer] current occupational exposures/hazards: Yes (extreme heat) pets [...] 5-6 times per week duration: 60-90 minutes/day janae/shinto: Episcopalian seatbelt use: always do you feel safe at home: Yes additional social history: Leonardo History 2 Elective abortions Hx Para 0 Spontaneous abortions 1 Hx # Term Pregnancies Ectopic pregnancies Hx # Pregnancies Multiple births # of living children 0 Past Pregnancies Del. Date Name GA/Weeks Outcome Route Bth Weight Gen Labor Lgth Anesthesia Del [facility] Provider FOB 05/09/22 5 spontaneous HPI 36 [...] reassurance. due (more content not included)... Normal [facility] Screening beta-hemolytic Str eptococcus cultureOrdered By: Jerome De Anda on 02-13-2024 Group B Streptococcus Culture Group B Beta Streptococcus is not isolated. [facility] Urine Cultureon 02-03-2024 URC Mixed Gram Pos Gram Neg Org [place] Count 11,000-25,000 MIXC Mixed contaminants. Submit a new specimen if indicated. Normal [facility] Comment on above: Performed By: #### L 400.0001, M100.2200 #### [facility] [address] [place], [address] Biophysical Prof W/O Non Str eson 02-02-2024 Biophysical Prof W/O Non Stres [facility] Imaging Services [address] [place] [address] Biophysical Prof W/O Non Stres MR#: [id number] Acct: [id number] Name: LACY MACIAS Rep #: [id number] : 1995 F 28 From: Yulisa mccullough MD PCP: Care Physician,No Primary Status: DEP CLI Study: Biophysical Prof W/O Non Stres Date of Exam: 04/03/23 Exam# [id number] Ordering Dr: Yue Patel DO [id number] HISTORY: variables -- low heart rate. TECHNIQUE: [...] Signed: Yulisa Bazzi MD at 13:16 EST , CC: Dr. Yue Patel, DO; No Primary Care Physician Evaluation Engineer: Signed Normal [facility] OB Triage Progress Noteon OB Triage Progress Note [facility] Medical Records Department [address] [place] [address] OB Triage Progress Note 02/02/24 1205 MR#: [id number] Acct: [id number] Name: LACY MACIAS Rep #: [id number] : 1995 28 From: Jerome De Anda CNM PCP: Care Physician,No Primary Status:REG CLI Y DOS: Location: [place] [address] Progress Notes Date of Service: 02/02/24 Progress Note: Patient presents for triage evaluation secondary to nonreactive NST in office at 34 weeks. FHT: 130 Moderate variability reactive no decelerations category I tracing [place]: no Contractions Assessment and plan: Bpp 10/15, Reactive NST, reassuring maternal and status patient discharged to home to follow-up in the office. See problem list details for additional plan information. Charges/Coding Multi Select Codes Urinary/Genital Urinary/Genital CPT Codes: 52790-54 non-stress test Interp Assessment Plan (1) Nausea [...] (5) Non-reactive NST (non-stress test): COMMENT: BPP 88, d/c home 02/02/24 1207 Date Jerome De Anda CNM Cosigner Signature (if applicable): Date CC: JAN De Anda; No Primary Care Physician Signed Normal [facility] Auto Mechanic Supervisor Office Visit Reporton 02-02-2024 Auto Mechanic Supervisor Office Visit Report [facility] [address], [address] [place] [address] OFFICE VISIT Date of Service: 02/02/24 MR#: [id number] Acct: [id number] Name: LACY MACIAS Rep #: [id number] : 1995 Provider: Dr. Yue Welch DO Age/Sex: 28/F [place] [facility] [place]: Signed Intake Vital Signs 12/25/23 09:44 01/28/24 09:43 02/02/24 09:04 Height 5 ft 7 in 5 ft 7 in 5 ft 7 in Weight: 277 lb 6 oz BMI 43.4 BP 123/82 H Intake Visit Reasons: 35 WK NST ONLY Chief Complaint: 35 Week NST only Dry Folder Cloth Required: No Is patient in pain?: No [...] family current occupational status: employed current occupation: [employer] current occupational exposures/hazards: Yes (extreme heat) pets [...] 5-6 times per week duration: 60-90 minutes/day janae/shinto: Episcopalian seatbelt use: always do you feel safe at home: Yes additional social history: Leonardo History 2 Elective abortions Hx Para 0 Spontaneous abortions 1 Hx # Term Pregnancies Ectopic pregnancies Hx # Pregnancies Multiple births # of living children 0 Past Pregnancies Del. Date Name GA/Weeks Outcome Route Bth Weight Infant Gen Labor Lgth Anesthesia Del Locatn Provider FOB 05/09/22 5 spontaneous HPI 35 [...] 160 -???-???-???-???-???-?? (more content not included)... Normal [facility] Urinalysis, Completeon 02-01 BACTERIA 3+ /hpf Normal None Seen [facility] Comment on above: Order Comment: CLEAN CATCH Performed By: #### L 400.0001, M100.0 #### [facility] [address] [place], [address] EPI,SQUAMOUS 0-5 SEEN Normal 5-10 [facility] Comment on above: Order Comment: CLEAN CATCH Performed By: #### L 400.0001, M100.0 #### [facility] [address] [place], [address] WBC 5-10 SEEN Normal 0-5 [facility] Comment on above: Order Comment: CLEAN CATCH Performed By: #### L 400.0001, M100.0 #### [facility] [address] [place], [address] Mucus Ql (Urine sed) 0 SEEN Normal [facility] Comment on above: Order Comment: CLEAN CATCH Performed By: #### L 400.0001, M100.2200 #### [facility] [address] [place], [address] RBC 0 SEEN Normal 0-5 [facility] Comment on above: Order Comment: CLEAN CATCH Performed By: #### L 400.0001, M100.2200 #### [facility] [address] [place], [address] Biophysical Prof W/O Non Str eson 01-28-2024 Biophysical Prof W/O Non Stres [facility] Imaging Services [address] [place] [address] Biophysical Prof W/O Non Stres MR#: [id number] Acct: [id number] Name: LACY MACIAS Rep #: [id number] : 1995 F 28 From: Jonathan mathias MD PCP: Care Physician,No Primary Status: REG CLI Study: Biophysical Prof W/O Non Stres Date of Exam: 03/29/23 Exam# [id number] Ordering Dr: Mely Castillo [id number] STUDY: OBSTETRICAL ULTRASOUND - BIOPHYSICAL PROFILE REASON [...] 10/15. Electronically Signed: Jonathan Fontaine MD at 11:44 EST , CC: Dr. Mely Castillo MD; No Primary Care Physician Evaluation Engineer: Signed Normal [facility] OB Triage Progress Noteon OB Triage Progress Note [facility] Medical Records Department [address] [place] [address] OB Triage Progress Note 01/28/24 1252 MR#: [id number] Acct: [id number] Name: LACY MACIAS Rep #: [id number] : 1995 28 From: Mely Castillo MD [...] MD; No Primary Care Physician Signed Normal [facility] Auto Mechanic Supervisor Office Visit Reporton 01-28-2024 Auto Mechanic Supervisor Office Visit Report [facility] [address], [address] [place] [address] OFFICE VISIT Date of Service: 01/28/24 MR#: [id number] Acct: [id number] Name: LACY MACIAS Rep #: [id number] : 1995 Provider: ANJUM devlin Age/Sex: 28/F [place] [facility] [place]: Signed Intake Vital Signs 12/25/23 09:44 01/22/24 09:36 01/28/24 08:36 01/28/24 08:57 01/28/24 08:58 Height 5 ft 7 in 5 ft 7 in 5 ft 7 in 5 ft 7 in Weight: 247 lb 8 oz BMI 38.7 BP 125/84 H 97/60 Intake Visit Reasons: 34 WK NST ONLY Dry Folder Cloth Required: No Is patient in pain?: No [...] family current occupational status: employed current occupation: [employer] current occupational exposures/hazards: Yes (extreme heat) pets [...] 5-6 times per week duration: 60-90 minutes/day janae/shinto: Episcopalian seatbelt use: always do you feel safe [...] -???-???-???-???-???-???- ???-???-???-???-??? (more content not included)... Normal [facility] Auto Mechanic Supervisor Office Visit Reporton 01-22-2024 Auto Mechanic Supervisor Office Visit Report [facility] [address], [address] [place] [address] OFFICE VISIT Date of Service: 01/22/24 MR#: [id number] Acct: [id number] Name: LACY MACIAS Rep #: [id number] : 1995 Provider: ANJUM devlin Age/Sex: 28/F [place] [facility] [place]: Signed Intake Vital Signs 12/25/23 09:44 01/08/24 08:36 01/22/24 09:36 Height 5 ft 7 in 5 ft 7 in 5 ft 7 in Weight: 277 lb BMI 43.4 BP 126/82 H Intake Visit Reasons: 33 WK OB Chief Complaint: 33 Week OB Dry Folder Cloth Required: No Is patient in pain?: No [...] family current occupational status: employed current occupation: [employer] current occupational exposures/hazards: Yes (extreme heat) pets [...] 5-6 times per week duration: 60-90 minutes/day janae/shinto: Episcopalian seatbelt use: always do you feel safe at home: Yes additional social history: Leonardo History 2 Elective abortions Hx Para 0 Spontaneous abortions 1 Hx # Term Pregnancies Ectopic pregnancies Hx # Pregnancies Multiple births # of living children 0 Past Pregnancies Del. Date Name GA/Weeks Outcome Route Bth Weight Gen Labor Lgth Anesthesia Del [facility] Provider FOB 05/09/22 5 spontaneous HPI 33 [...] Negative -???-???-???-???-???-???- ???-???-???-???-???-???- Negative 160 -???-???-???-???-???-???- ???-???-???-???-???-???- (more content not included)... Normal [facility] Serum or plasma choriogonado tropin detectionOrdered By: Jerome De Anda on 07-02-2023 HCG ( test) Ql 101 mIU/mL <4 [facility] Comment on above: hCG levels with Gest ational AgeGestational Age hCG mIU/mL (IU/L)0.2 - 1 week 5 - 501-2 weeks 50 - 5002-3 weeks 100 - 21324-0 weeks 500 - 662626-3 weeks 1000 - 233528-7 weeks 51327 - 100,0006-8 weeks 15325 - 200,0002-3 months 78197 - 100,000 .Auto Diffon 06-30-2023 Basophil, Absolute 0.1 10 3/mcL Normal 0.0-0.2 [facility] ([place]) Comment on above: Performed By: #### G FR, BETZY, LAKHWINDERIFF, CBC, HCGQ, MDW, BMP #### [address] [address] Basophils/100 WBC (Bld) 0.7 % Normal 0.0-2.5 [facility] ([place]) Comment on above: Performed By: #### G FR, ANEU, ADIFF, CBC, HCGQ, MDW, BMP #### [address] [address] Eosinophil, Absolute 0.1 10 3/mcL Normal 0.0-0.4 [facility] ([place]) Comment on above: Performed By: #### G FR, ANEU, ADIFF, CBC, HCGQ, MDW, BMP #### [address] [address] Eosinophils/100 WBC (Bld) 0.5 % Normal 0.0-7.0 [facility] ([place]) Comment on above: Performed By: #### G FR, ANEU, ADIFF, CBC, HCGQ, MDW, BMP #### [address] [address] Lymphocyte, Absolute 2.5 10 3/mcL Normal 0.8-3.9 [facility] ([place]) Comment on above: Performed By: #### G FR, ANEU, ADIFF, CBC, HCGQ, MDW, BMP #### [address] [address] Lymphocytes/100 WBC (Bld) 22.4 % Normal 10.0-50.0 [facility] ([place] Comment on above: Performed By: #### G FR, ANEU, ADIFF, CBC, HCGQ, MDW, BMP #### [address] [address] Monocyte, Absolute 0.7 10 3/mcL Normal 0.2-1.0 [facility] ([place]) Comment on above: Performed By: #### G FR, ANEU, ADIFF, CBC, HCGQ, MDW, BMP #### [address] [address] Monocytes/100 WBC (Bld) 6.6 % Normal 1.7-13.0 [facility] ([place] Comment on above: Performed By: #### G FR, ANEU, ADIFF, CBC, HCGQ, MDW, BMP #### [address] [address] Neutrophils/100 WBC (Bld) 69.8 % Normal 37.0-80.0 [facility] ([place] Comment on above: Performed By: #### G FR, ANEU, ADIFF, CBC, HCGQ, MDW, BMP #### [address] [address] .GFRon 06-30-2023 GFR 114 ml/min/1.73sqm Normal [facility] ([place]) Comment on above: Result Comment: GFR Population [...] ANEU, ADIFF, CBC, HCGQ, MDW, BMP #### [address] [address] GFR Non- 94 ml/min/1.73sqm Normal [facility] ([place]) Comment on above: Result Comment: GFR Population [...] ANEU, ADIFF, CBC, HCGQ, MDW, BMP #### [address] [address] .MDWon 06-30-2023 Monocyte Distribution Width 19.44 Normal 0.00-20.00 [facility] ([place]) Comment on above: Result Comment: For ED adult patients suspected of sepsis, MDW<=20.0 does not rule out sepsis or risk of sepsis Performed By: #### G FR, ANEU, ADIFF, CBC, HCGQ, MDW, BMP #### [address] [address] .NEUABSon 06-30-2023 Neutrophil, Absolute 7.9 10 3/mcL High 2.9-6.2 [facility] ([place]) Comment on above: Performed By: #### G FR, ANEU, ADIFF, CBC, HCGQ, MDW, BMP #### [address] [address] BMPon 06-30-2023 BUN/Creatinine Ratio 26 ratio Normal 7-27 [facility] ([place]) Comment on above: Performed By: #### G FR, ANEU, ADIFF, CBC, HCGQ, MDW, BMP #### [address] [address] Calcium [Mass/Vol] 9.0 mg/dL Normal 8.4-10.2 [facility] ([place]) Comment on above: Performed By: #### G FR, ANEU, ADIFF, CBC, HCGQ, MDW, BMP #### [address] [address] Chloride [Moles/Vol] 104 mmol/L Normal 98-107 [facility] ([place]) Comment on above: Performed By: #### G FR, ANEU, ADIFF, CBC, HCGQ, MDW, BMP #### [address] [address] CO2 [Moles/Vol] 23 mmol/L Normal 22-29 [facility] ([place]) Comment on above: Performed By: #### G FR, ANEU, ADIFF, CBC, HCGQ, MDW, BMP #### [address] [address] Creatinine [Mass/Vol] 0.74 mg/dL Normal 0.55-1.02 [facility] ([place]) Comment on above: Performed By: #### G FR, ANEU, ADIFF, CBC, HCGQ, MDW, BMP #### [address] [address] Electrolyte Balance 12.0 mEq/L Normal 4.0-15.0 [facility] ([place]) Comment on above: Performed By: #### G FR, ANEU, ADIFF, CBC, HCGQ, MDW, BMP #### [address] [address] Glucose [Mass/Vol] 97 mg/dL Normal 70-105 [facility] ([place] Comment on above: Performed By: #### G FR, ANEU, ADIFF, CBC, HCGQ, MDW, BMP #### [address] [address] Potassium [Moles/Vol] 3.6 mmol/L Normal 3.5-5.1 [facility] ([place]) Comment on above: Performed By: #### G FR, ANEU, ADIFF, CBC, HCGQ, MDW, BMP #### [address] [address] Sodium [Moles/Vol] 139 mmol/L Normal 136-145 [facility] ([place] Comment on above: Performed By: #### G FR, ANEU, ADIFF, CBC, HCGQ, MDW, BMP #### [address] [address] Urea nitrogen [Mass/Vol] 19 mg/dL High 7-18 [facility] ([place]) Comment on above: Performed By: #### G FR, ANEU, ADIFF, CBC, HCGQ, MDW, BMP #### [address] [address] CBCon 06-30-2023 Erythrocyte distribution width (RBC) [Ratio] 13.6 % Normal 11.5-14.5 [facility] ([place] Comment on above: Performed By: #### G FR, ANEU, ADIFF, CBC, HCGQ, MDW, BMP #### [place] [address] Hematocrit (Bld) [Volume fraction] 38.0 % Normal 37.0-47.0 [facility] ([place]) Comment on above: Performed By: #### G FR, ANEU, ADIFF, CBC, HCGQ, MDW, BMP #### [place] [address] Hgb 12.8 G/dL Normal 12.0-16.0 [facility] ([place]) Comment on above: Performed By: #### G FR, ANEU, ADIFF, CBC, HCGQ, MDW, BMP #### [place] [address] MCH (RBC) [Entitic mass] 27.5 pg Normal 27.0-31.2 [facility] ([place] Comment on above: Performed By: #### G FR, ANEU, ADIFF, CBC, HCGQ, MDW, BMP #### [place] [address] MCHC 33.7 G/dL Normal 33.0-37.0 [facility] ([place]) Comment on above: Performed By: #### G FR, ANEU, ADIFF, CBC, HCGQ, MDW, BMP #### [place] [id number] MCV (RBC) [Entitic vol] 81.5 fL Normal 80.0-94.0 [facility] ([place] Comment on above: Performed By: #### G FR, ANEU, ADIFF, CBC, HCGQ, MDW, BMP #### [place] [address] Platelet 356 10 3/mcL Normal 130-400 [facility] ([place]) Comment on above: Performed By: #### G FR, ANEU, ADIFF, CBC, HCGQ, MDW, BMP #### [address] [address] Platelet mean volume (Bld) [Entitic vol] 7.6 fL Normal 7.4-10.4 [facility] ([place]) Comment on above: Performed By: #### G FR, ANEU, ADIFF, CBC, HCGQ, MDW, BMP #### [facility] [address] [place], [place] [address] RBC 4.66 10 6/mcL Normal 4.20-5.40 [facility] ([place]) Comment on above: Performed By: #### G FR, ANEU, ADIFF, CBC, HCGQ, MDW, BMP #### [place] [id number] [place], [place] [address] WBC 11.3 10 3/mcL High 4.6-10.8 [facility] ([place]) Comment on above: Performed By: #### G FR, ANEU, ADIFF, CBC, HCGQ, MDW, BMP #### [place] [id number] [place], [place] [address] HCGQon 06-30-2023 hCG, quantitative 43.2 mIU/mL Normal [facility] ([place]) Comment on above: Result Comment: HCG Levels [...] ANEU, ADIFF, CBC, HCGQ, MDW, BMP #### [place] [address] LABORATORYOrdered By: Champ Noonan on 06-30-2023 Appearance [...] HCG ( test) Ql 36 mIU/mL <4 [facility] Comment on above: hCG levels with Gest ational AgeGestational Age hCG mIU/mL (IU/L)0.2 - 1 week 5 - 501-2 weeks 50 - 5002-3 weeks 100 - 61745-3 weeks 500 - 983408-1 weeks 1000 - 571134-2 weeks 33271 - 100,0006-8 weeks 83286 - 200,0002-3 months [address] - 100,000 UAon 06-30-2023 Color (U) Yellow Normal [facility] ([place]) Comment on above: Performed By: #### U A #### [address] [address] Glucose (U) [Mass/Vol] Negative Normal Negative [facility] ([place]) Comment on above: Performed By: #### U A #### [place] [id number] Ketones Ql (U) 80 mg/dL Abnormal Negative [facility] ([place]) Comment on above: Performed By: #### U A #### [place] [address] UA Appear Clear Normal Clear [facility] ([place]) Comment on above: Performed By: #### U A #### [address] [address] UA Blood Negative Normal Negative [facility] ([place]) Comment on above: Performed By: #### U A #### [place] [address] UA Leuk Est Negative Normal Negative [facility] ([place]) Comment on above: Performed By: #### U A #### [place] [address] UA Nitrite Negative Normal Negative [facility] ([place]) Comment on above: Performed By: #### U A #### [place] [address] UA pH 6.0 Normal 5.0 - 8.0 [facility] ([place]) Comment on above: Performed By: #### U A #### [place] [address] UA Protein Negative Normal Negative [facility] ([place]) Comment on above: Performed By: #### U A #### María [address] [address] UA Spec Grav 1.025 Normal 1.015-1.025 [facility] ([place]) Comment on above: Performed By: #### U A #### [place] [address] UA Specimen Type Clean Catch Normal [facility] ([place]) Comment on above: Performed By: #### U A #### María [address] [address] UA Urobilinogen 0.2 E.U./dL Normal 0.2-1.0 [facility] ([place]) Comment on above: Performed By: #### U A #### [address] [address] Urobilinogen (U) [Mass/Vol] Negative Normal Negative [facility] ([place]) Comment on above: Performed By: #### U A #### [address] [address] ED Nursing Noteon 10-29-2022 ED Nursing Note Pt discharged to [facility] by CIRO Vera. No IV in place. 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 Devendra Donovan RN 10/29/222055 [facility] ED Nursing Note Pt A+Ox4. Pt has graham n and equal chest rise. Pt denies any needs at this time. Devendra Donovan RN 10/29/222055 [facility] ED Nursing Note Report given to Yordy cedeño RN, ED nurse manager background. Mabel Malloy RN 10/29/22 1705 [facility] ED Nursing Note Pt had urine drug sc reen done per [facility] policy s/p work injury. Mabel Malloy RN 10/29/22 1649 [facility] ED Nursing Note Bed: 15 Expected date: 10/29/22 Expected time: 7:09 PM Means of arrival: Comments: triage Salma Galvez RN 10/29/22 1914 [facility] ED Provider Noteon ED Provider Note EMERGENCY DEPARTMENT ENCOUNTER Pt Name: Lacy Cardenas Birthdate 1995 Date of evaluation: 10/29/2022 ED Provider: Emily Silva MD CHIEF COMPLAINT Chief Complaint Patient presents with Eye Problem Pt states was at work at [employer] and had safety eyewear in place. Possible [...] plan will be to transfer her to [facility] emergency department in order to be evaluated by the hand rigger there. Patient is agreeable to this. Will be transferred via private vehicle that a coworker will drive. Naz Silva MD am the primary class teacher of record. FINAL IMPRESSION 1. Foreign body of right eye, initial encounter DISPOSITION Transfer To [facility] Ed 10/29/2022 03:51:50 PM PATIENT REFERRED TO: No follow-up provider specified. DISCHARGE MEDICATIONS: New Prescriptions No medications on file (Comment: Please note this report has been produced using speech recognition software and may contain errors related to that system including errors in grammar, punctuation, and spelling, as well as words (more content not included)... Normal [facility] ED Provider Note Emergency Department Encounter [facility] EMERGENCY DEPT Patient: Lacy Cardenas : 1995 [...] medial right eyelid, she was transferred from [facility] for an ophthalmology consult. Focused Physical exam: [...] for clarification Hilary Alfred MD Acute Care [facility] Hilary Alfred MD 10/29/22 1842 [facility] ED Provider Note EMERGENCY DEPARTMENT ENCOUNTER Pt Name: Lacy Cardenas Birthdate 1995 Date of evaluation: 10/29/2022 ED Provider: JADEN Jauregui CNP EDcare was supervised by Dr. Alfred who independently examined and evaluated the patient. Please see their attestation note for further details. CHIEF COMPLAINT Chief Complaint Patient presents with Eye Problem Pt states was at work at [employer] and had safety eyewear in place. Possible [...] her right eye and sent from another [facility] emergency department. Nursing Notes were reviewed. Limitations [...] Vitals: 10/29/22 1521 10/29/22 1646 10/29/22 1750 10/29/222055 BP: (!) 159/106 (!) 147/82 (!) 146/89 [...] strip Both Eyes Given by Other 10/29/221529) Lacy Anton, a 27-year-old female presented to the [facility] emergency department and then was told to come here to [facility] to see ophthalmology due to having a foreign body in her eye. While she was in the waiting room waiting for ophthalmology the foreign body came out of her eye. Dr. Rinaldi from ophthalmology did an eye exam and could not find anything left in her eye. He instructed her to purchase [id number] refresh eyedrops if her eye continued to [...] DISPOSITION Discharge to home PATIENT REFERRED TO: [facility] [address] [address] DISCHARGE MEDICATIONS: New Prescriptions No medications on file (Comment: Please note this report has been produced using speech recognition software and may contain errors related to that system including errors in grammar, punctuation, and spelling, as well as words and phrases that may be inappropriate. If there are any questions or concerns plea (more content not included)... Normal [facility] Progress Noteon 10-29-2022 Progress Note ED ophthalmology [...] any further irritation [facility]. [facility] ) ----- LACY CARDENAS ([id number]) 1995 F Date Time Provider Department 05/08/22 8:55 AM INDIRA RAPP (ANETA) [facility] During your visit today, we recorded the [...] emergency department. Therefore patient was sent to [facility] emergency department for further evaluation and management. [...] (None) Lev (more content not included)... Normal [facility] LABORATORYOrdered By: Ruth Ponce on 05-08-2022 ABO/Rh [...] 10^3/mcL AO Workflow SS LABORATORYOrdered By: Anjali fink Allen on 05-08-2022 HCG ( test) Ql Negative (05/08/22 11:09 AM) Invalid Interpretation Code AO Manual Urine SS test (u) int Not detected Invalid Interpretation Code AO Manual Urine SS LABORATORYOrdered By: SYSTEM SYSTEM on 05-08-2022 HCG Qn mIU/mL Invalid Interpretation Code AO ADM SS DIPSTICKon 12-29-2020 POC APPEARANCE CLEAR Normal CLEAR [facility] Comment on above: Order Comment: Campu s: MAS POC BILIRUBIN Negative Normal NEGATIVE [facility] Comment on above: Order Comment: Campu s: MAS POC BLOOD Negative Normal NEGATIVE [facility] Comment on above: Order Comment: Campu s: MAS POC COLOR YELLOW Normal [facility] Comment on above: Order Comment: Campu s: MAS POC KETONE Negative Normal NEGATIVE [facility] Comment on above: Order Comment: Campu s: MAS POC LEUK EST Negative Normal NEGATIVE [facility] Comment on above: Order Comment: Campu s: MAS POC NITRITE Negative Normal NEGATIVE [facility] Comment on above: Order Comment: Campu s: MAS POC PROTEIN Negative Normal NEGATIVE [facility] Comment on above: Order Comment: Campu s: MAS POC SPEC GRAV 1.020 Normal 1.005-1.030 [facility] Comment on above: Order Comment: Campu s: MAS POC UA GLUCOSE NORMAL Normal NORMAL [facility] Comment on above: Order Comment: Campu s: MAS POC UA PH 6.0 Normal 5-6 [facility] Comment on above: Order Comment: Campu s: MAS POC UROBIL NORMAL Normal NORMAL [facility] Comment on above: Order Comment: Aldairu s: MAS MSCon 12-29-2020 [facility] REPORT Normal [facility] MSC DATE OF SERVICE: 12/29/2020 REASON OF VISIT: [...] blood, and protein. ASSESSMENT: Urinary tract infection. [facility] PATIENT NAME: LACY CARDENAS [address] [facility] [address] Mora MEDICAL REC #: [id number] [place] [address] [facility] REPORT [facility] PHYSICIAN PLAN: Clinical findings [...] Patient understands and agrees. Yumiko Gavin MD [id number] SSI File#: [id number] END OF DOCUMENT / CHANGE LOG FOLLOWS Last Edited By Elec. Signed By Yumiko Gavin MD #[id number] Yumiko Gavin MD #PAWPR on 01/09/2021 19:40 ET on 01/09/2021 19:40 ET Revision Number - 2 [facility] PATIENT NAME: LACY CARDENAS Stephany Mora MEDICAL REC #: [id number] [place] [address] [facility] REPORT [facility] PHYSICIAN Verified/Reviewed by 01/09/21 Otis LI [facility] PATIENT NAME: LACY CARDENAS Stephany Mora MEDICAL REC #: [id number] [place] [address] [facility] REPORT [facility] PHYSICIAN [facility] Albumin [Mass/Vol] 3.8 g/dL Normal 3.2-5.0 [facility] Comment on above: Performed By: #### L 500.26139, L500.42585, L500.59522, L500.33433 #### [facility] [address] [place] [address] Albumin/Globulin [Mass ratio] 1.1 {ratio} Normal 0.8-2.0 [facility] Comment on above: Performed By: #### L 500.74953, L500.16903, L500.64300, L500.67779 #### [facility] [address] [place] [address] ALK PHOS 95 U/L Normal 45-117 [facility] Comment on above: Performed By: #### L 500.73096, L500.66611, L500.31151, L500.72230 #### [facility] [address] [place] [address] ALT [Catalytic activity/Vol] 14 U/L Normal 13-61 [facility] Comment on above: Result Comment: RESU LTS MAY BE FALSELY DEPRESSED AFTER THE ADMINISTRATION OF SULFASALAZINE AND/OR SULFAPYRIDINE. Performed By: #### L 500.12740, L500.81889, L500.20667, L500.39843 #### [facility] [address] [place] [address] Anion gap [Moles/Vol] 6 mmol/L Normal 5-16 [facility] Comment on above: Performed By: #### L 500.89313, L500.80991, L500.19591, L500.33952 #### [facility] [address] [place] [address] AST [Catalytic activity/Vol] 15 U/L Normal 8-34 [facility] Comment on above: Result Comment: RESU LTS MAY BE FALSELY DEPRESSED AFTER THE ADMINISTRATION OF SULFASALAZINE AND/OR SULFAPYRIDINE. Performed By: #### L 500.77600, L500.63342, L500.05291, L500.80093 #### [facility] [address] [place] [address] BILI TOTAL 0.40 MG/DL Normal 0.2-1.0 [facility] Comment on above: Performed By: #### L 500.44184, L500.25343, L500.82671, L500.28172 #### [facility] [address] [place] [address] Calcium [Mass/Vol] 9.9 mg/dL Normal 8.5-10.5 [facility] Comment on above: Result Comment: NOTE NEW NORMAL RANGE DUE TO REAGENT CHANGE Performed By: #### L 500.35202, L500.57195, L500.25120, L500.72435 #### [facility] [address] [place] [address] Chloride [Moles/Vol] 107 mmol/L Normal 98-107 [facility] Comment on above: Performed By: #### L 500.75374, L500.83523, L500.44759, L500.49025 #### [facility] [address] [place] [address] CO2 [Moles/Vol] 27.0 mmol/L Normal 21-32 [facility] Comment on above: Performed By: #### L 500.90736, L500.76633, L500.51021, L500.78311 #### [facility] [address] [place] [address] Creatinine [Mass/Vol] 0.62 mg/dL Normal 0.510-0.950 [facility] Comment on above: Result Comment: Brisa ents receiving either N-Acetylcysteine (NAC) or Metamizole prior to venipuncture, may have falsely depressed results. Performed By: #### L 500.78236, L500.55973, L500.74726, L500.98954 #### [facility] [address] [place] [address] Globulin (S) [Mass/Vol] 3.6 g/dL Normal 2.2-4.2 [facility] Comment on above: Performed By: #### L 500.68757, L500.93328, L500.92190, L500.39892 #### [facility] [place] [address] Glucose [Mass/Vol] 83 mg/dL Normal 70-100 [facility] Comment on above: Result Comment: 70-1 00- Normal Fasting; 100-125 Impaired Fasting; greater than 126 on more than one result- Diabetes. ADA guidelines. Results may be falsely elevated after the administration of Sulfapyridine. Results may be falsely depressed after the administration of Sulfasalazine. Performed By: #### L 500.42635, L500.97638, L500.48372, L500.99449 #### [facility] [address] [place] [address] Potassium [Moles/Vol] 4.8 mmol/L Normal 3.5-5.1 [facility] Comment on above: Performed By: #### L 500.13848, L500.76705, L500.32611, L500.49275 #### [facility] [address] [place] [address] Protein [Mass/Vol] 7.4 g/dL Normal 6.0-8.5 [facility] Comment on above: Performed By: #### L 500.74115, L500.61297, L500.78403, L500.02072 #### [facility] [address] [place] [address] Sodium [Moles/Vol] 140 mmol/L Normal 136-145 [facility] Comment on above: Performed By: #### L 500.17748, L500.67956, L500.17677, L500.19803 #### [facility] [address] [place] [address] Urea nitrogen [Mass/Vol] 10 mg/dL Normal 7-26 [facility] Comment on above: Performed By: #### L 500.80180, L500.94407, L500.77494, L500.28525 #### [facility] [address] [place] [address] Urea nitrogen/Creatinine [Mass ratio] 16 mg/mg Normal 15-24 [facility] Comment on above: Performed By: #### L 500.48930, L500.24673, L500.55664, L500.68211 #### [facility] [address] [place] [address] GFR ESTon 11-01-2020 IF AMER Greater than 60 Normal [facility] Comment on above: Performed By: #### L 500.51287, L500.49989 #### [facility] [address] [place] [address] IF non-AFR AMER Greater than 60 Normal [facility] Comment on above: Performed By: #### L 500.87834, L500.28306 #### [facility] [address] [place], [place] [id number] LIPIDon 11-01-2020 CHOL 126 MG/dL Normal 0-199 [facility] Comment on above: Performed By: #### L 500.12206, L500.39498 #### [facility] [address] [place] [address] Cholesterol in HDL [Mass/Vol] 68 mg/dL Normal GREATER THAN 40 [facility] Comment on above: Result Comment: Brisa ents receiving Metamizole prior to venipuncture, may have falsely depressed results. Performed By: #### L 500.66198, L500.00884 #### [facility] [address] [place] [address] Cholesterol in LDL [Mass/Vol] 53 mg/dL Normal [facility] Comment on above: Result Comment: ___C HOLESTEROL/HDL RATIO RISK___ CHD RISK = Total CHOL LDL HDL (CHOL/HDL) Recommended <200 <130 >40 <3.4 Borderline 200-239 130-159 3.4-4.99 High >240 >160 >5.0 Performed By: #### L 500.70330, L500.35324 #### [facility] [place] [address] Triglyceride [Mass/Vol] 25 mg/dL Low 30-149 [facility] Comment on above: Result Comment: Brisa ents receiving either N-Acetylcysteine (NAC) or Metamizole prior to venipuncture, may have falsely depressed results. Performed By: #### L 500.08618, L500.03048 #### [facility] [address] [place] [address] TSHon 11-01-2020 TSH 0.630 UIU/ML Normal 0.358-3.740 [facility] Comment on above: Result Comment: 3rd generation ultra sensitive TSH Performed By: #### L 500.97262, L500.74717 #### [facility] [address] [place] [address] UA COMPLETEon 11-01-2020 Color (U) Yellow Normal [facility] Comment on above: Performed By: #### L 600.35715 #### [facility] [address] [place] [address] Glucose (U) [Mass/Vol] Negative Normal NORMAL [facility] Comment on above: Performed By: #### L 600.55697 #### [facility] LABORATORY [address] [place] [address] UA APPEARANCE Clear Normal CLEAR [facility] Comment on above: Performed By: #### L 600.89533 #### [facility] [address] [place] [address] UA BILIRUBIN Negative Normal NEGATIVE [facility] Comment on above: Performed By: #### L 600.21792 #### [facility] [address] [place] [address] UA BLOOD Negative Normal NEGATIVE [facility] Comment on above: Performed By: #### L 600.80566 #### [facility] [address] [place] [address] UA KETONE 5 Normal NEGATIVE [facility] Comment on above: Performed By: #### L 600.34628 #### [facility] [address] [place] [address] UA LK ESTERASE Negative Normal NEGATIVE [facility] Comment on above: Performed By: #### L 600.33783 #### [facility] [address] [place] [address] UA NITRITE Negative Normal NEGATIVE [facility] Comment on above: Performed By: #### L 600.24989 #### [facility] [address] [place] [address] UA PH 6.0 Normal 5-6 [facility] Comment on above: Performed By: #### L 600.32841 #### [facility] [address] [place] [address] UA PROTEIN Negative Normal NEGATIVE [facility] Comment on above: Performed By: #### L 600.72115 #### [facility] [address] [place] [address] UA SPEC GRAV 1.015 Normal 1.005-1.030 [facility] Comment on above: Performed By: #### L 600.52380 #### [facility] [address] [place] [address] UA UROBILINOGEN Negative Normal NORMAL [facility] Comment on above: Performed By: #### L 600.09780 #### [facility] [address] [place] [address] CBC W/DIFFon 10-31-2020 BASO ABS 0.10 K/CU MM Normal 0-0.2 [facility] Comment on above: Performed By: #### L 200.15238 #### [facility] [address] [place] [address] Basophils/100 WBC (Bld) 0.6 % Normal 0-2 [facility] Comment on above: Performed By: #### L 200.91361 #### [facility] [address] [place] [address] EOS ABS 0.00 K/CU MM Normal 0-0.5 [facility] Comment on above: Performed By: #### L 200.13271 #### [facility] [address] [place] [address] Eosinophils/100 WBC (Bld) 0.4 % Normal 0-5 [facility] Comment on above: Performed By: #### L 200.75506 #### [facility] [address] [place] [address] Erythrocyte distribution width (RBC) [Ratio] 11.9 % Normal 11-14.5 [facility] Comment on above: Performed By: #### L 200.64082 #### [facility] [address] [place] [address] Hematocrit (Bld) [Volume fraction] 41.3 % Normal 35.0-47.0 [facility] Comment on above: Performed By: #### L 200.24006 #### [facility] [address] [place] [address]# [phone] Hemoglobin (Bld) [Mass/Vol] 13.4 g/dL Normal 11.5-15.5 [facility] Comment on above: Performed By: #### L 200.00406 #### [facility] [address] [place] [address]# [phone] IMMATR GRAN ABS 0.00 K/CU MM Normal Less than 2 [facility] Comment on above: Performed By: #### L 200.85430 #### [facility] [address] [place] [address] IMMATURE GRAN % 0.4 % Normal Less than 2 [facility] Comment on above: Performed By: #### L 200.33346 #### [facility] [address] [place] [address] LYMPH ABS 2.50 K/CU MM Normal 0.9-4.4 [facility] Comment on above: Performed By: #### L 200.59131 #### [facility] [address] [place] [address] Lymphocytes/100 WBC (Bld) 23.4 % Normal 20-40 [facility] Comment on above: Performed By: #### L 200.69900 #### [facility] [address] [place] [address] MCHC (RBC) [Mass/Vol] 32.4 g/dL Normal 32.0-36.0 [facility] Comment on above: Performed By: #### L 200.52453 #### [facility] [address] [place] [address] MCV (RBC) [Entitic vol] 87.9 fL Normal 80.0-99.0 [facility] Comment on above: Performed By: #### L 200.99221 #### [facility] [address] [place] [address] MONO ABS 0.60 K/CU MM Normal 0.1-1.1 [facility] Comment on above: Performed By: #### L 200.61403 #### [facility] [address] [place] [address] Monocytes/100 WBC (Bld) 5.4 % Normal 2-10 [facility] Comment on above: Performed By: #### L 200.34330 #### [facility] [address] [place] [address] NEUTROPHIL ABS 7.60 K/CU MM Normal 2.0-8.3 [facility] Comment on above: Performed By: #### L 200.78472 #### [facility] [address] [place] [address] Neutrophils/100 WBC (Bld) 69.8 % Normal 45-75 [facility] Comment on above: Performed By: #### L 200.01387 #### [facility] [address] [place] [address] Nucleated RBC/100 WBC (Bld) [Ratio] 0.0 % Normal Less than 1 [facility] Comment on above: Performed By: #### L 200.09173 #### [facility] [address] [place] [address] Platelet mean volume (Bld) [Entitic vol] 10.1 fL Normal 9.4-12.4 [facility] Comment on above: Performed By: #### L 200.08553 #### [facility] [place] [address] PLT 319 K/CU MM Normal 150-450 [facility] Comment on above: Performed By: #### L 200.29774 #### [facility] [address] [place] [address] RBC 4.70 M/CU MM Normal 3.90-5.30 [facility] Comment on above: Performed By: #### L 200.36243 #### [facility] [address] [place] [address] WBC 10.9 K/CUMM Normal 4.5-11.0 [facility] Comment on above: Performed By: #### L 200.17614 #### [facility] [address] [place] [address] BMPon 10-20-2020 Anion gap [Moles/Vol] 3 mmol/L Low 5-16 [facility] Comment on above: Order Comment: Campu s: M Performed By: #### L 500.26980, L500.11228 #### [facility] [address] [place] [address] Calcium [Mass/Vol] 10.0 mg/dL Normal 8.5-10.5 [facility] Comment on above: Order Comment: Campu s: M Result Comment: NOTE NEW NORMAL RANGE DUE TO REAGENT CHANGE Performed By: #### L 500.40307, L500.63932 #### [facility] [address] [place] [address] Chloride [Moles/Vol] 106 mmol/L Normal 98-107 [facility] Comment on above: Order Comment: Campu s: M Performed By: #### L 500.68660, L500.62576 #### [facility] [place] [address] CO2 [Moles/Vol] 31.0 mmol/L Normal 21-32 [facility] Comment on above: Order Comment: Campu s: M Performed By: #### L 500.10677, L500.19332 #### [facility] [address] [place] [address] Creatinine [Mass/Vol] 0.66 mg/dL Normal 0.510-0.950 [facility] Comment on above: Order Comment: Campu s: M Result Comment: Brisa ents receiving either N-Acetylcysteine (NAC) or Metamizole prior to venipuncture, may have falsely depressed results. Performed By: #### L 500.68486, L500.75341 #### [facility] [address] [place] [address] Glucose [Mass/Vol] 129 mg/dL High 70-100 [facility] Comment on above: Order Comment: Campu s: M Result Comment: 70-1 00- Normal Fasting; 100-125 Impaired Fasting; greater than 126 on more than one result- Diabetes. ADA guidelines. Results may be falsely elevated after the administration of Sulfapyridine. Results may be falsely depressed after the administration of Sulfasalazine. Performed By: #### L 500.40844, L500.15848 #### [facility] [address] [place] [address] Potassium [Moles/Vol] 4.6 mmol/L Normal 3.5-5.1 [facility] Comment on above: Order Comment: Campu s: M Performed By: #### L 500.83428, L500.31215 #### [facility] [address] [place] [address] Sodium [Moles/Vol] 140 mmol/L Normal 136-145 [facility] Comment on above: Order Comment: Campu s: M Performed By: #### L 500.50162, L500.75880 #### [facility] [address] [place] [address] Urea nitrogen [Mass/Vol] 10 mg/dL Normal 7-26 [facility] Comment on above: Order Comment: Campu s: M Performed By: #### L 500.29752, L500.76302 #### [facility] [address] [place] [address] Urea nitrogen/Creatinine [Mass ratio] 15 mg/mg Normal 15-24 [facility] Comment on above: Order Comment: Campu s: M Performed By: #### L 500.24440, L500.09793 #### [facility] [address] [place] [address] EKGon 10-20-2020 Electrocardiogram Procedure Date and T [...] CULLEN M.D.FACC Merissa DDandT: 10/20/20 1410 TDandT: [facility] MEDICAL REC #: [id number] [place] [address] ADMIT DATE: DISCHARGE DATE: ATTENDING PHY: Darryn Ferreira,Emergency Physi ELECTROCARDIOGRAM REPORT CLB cc: [facility] PATIENT NAME: LACY CARDENAS [address] [facility] [address] [place] MEDICAL REC #: [id number] [place] [address] ADMIT DATE: DISCHARGE DATE: ATTENDING PHY: Darryn Ferreira,Emergency Physi ELECTROCARDIOGRAM REPORT Normal [facility] Pablo 10-20-2020 EMERGENCY PHYSICIAN REPORT This is a preliminary report only, as the practitioner review and authentication has not occurred. Normal [facility] ER PHYSICIAN ASSESSMENT RECORDS : Discharge Report Event Time: 10/20/2020 15:13 : FlexChartData Event Time: 10/20/2020 15:45 Status: Signed [facility] Lacy Cardenas [[id number]] Attending Physician 1995 Chart (V2b) Chart created at 10/20/2020 15:08 by Nicola Ching Chart closed at 10/20/2020 15:12 Entry in Emergency Department at 10/20/2020 13:14, departure at 10/20/2020 15:41 Patient Name: Lacy Cardenas Record Number: [id number] Date: 10/20/2020 15:08 Entered Department at: 10/20/2020 [...] to occur somewhat frequently when she is [facility] PATIENT NAME: LACY CARDENAS [address] [facility] [address] [place] MEDICAL REC #: [id number] [place] [address] EMERGENCY DEPARTMENT REPORT EMERGENCY DEPARTMENT PHYSICIAN gets [...] Normal Gait, Cranial Nerves 2-12 Normal, Speech [facility] PATIENT NAME: LACY CARDENAS [address] [facility] [address] [place] MEDICAL REC #: [id number] [place] [address] EMERGENCY DEPARTMENT REPORT EMERGENCY DEPARTMENT PHYSICIAN Normal [...] 1. A (more content not included)... Normal [facility] GFR ESTon 10-20-2020 IF AMER Greater than 60 Normal [facility] Comment on above: Order Comment: Titus s: M Performed By: #### L 500.15052, L500.08341 #### [facility] [address] [place] [address] IF non-AFR AMER Greater than 60 Normal [facility] Comment on above: Order Comment: Campu s: M Performed By: #### L 500.85184, L500.31567 #### [facility] [address] [place] [address] HCGon 10-11-2020 HCG SER RESULT Negative Normal NEGATIVE [facility] Comment on above: Performed By: #### L 500.99813 #### [facility] [address] [place] [address] BMPon 09-13-2020 Anion gap [Moles/Vol] 7 mmol/L Normal 5-16 [facility] Comment on above: Order Comment: Campu s: M Performed By: #### L 500.99802, L500.37242 #### [facility] [address] [place] [address] Calcium [Mass/Vol] 9.5 mg/dL Normal 8.5-10.5 [facility] Comment on above: Order Comment: Campu s: M Result Comment: NOTE NEW NORMAL RANGE DUE TO REAGENT CHANGE Performed By: #### L 500.98600, L500.25103 #### [facility] [address] [place] [address] Chloride [Moles/Vol] 108 mmol/L High 98-107 [facility] Comment on above: Order Comment: Campu s: M Performed By: #### L 500.64771, L500.28681 #### [facility] [place] [address] CO2 [Moles/Vol] 25.0 mmol/L Normal 21-32 [facility] Comment on above: Order Comment: Campu s: M Performed By: #### L 500.18752, L500.96571 #### [facility] [address] [place], [place] [address] Creatinine [Mass/Vol] 0.67 mg/dL Normal 0.510-0.950 [facility] Comment on above: Order Comment: Campu s: M Result Comment: Brisa ents receiving either N-Acetylcysteine (NAC) or Metamizole prior to venipuncture, may have falsely depressed results. Performed By: #### L 500.89271, L500.24260 #### [facility] [address] [place] [address] Glucose [Mass/Vol] 93 mg/dL Normal 70-100 [facility] Comment on above: Order Comment: Campu s: M Result Comment: 70-1 00- Normal Fasting; 100-125 Impaired Fasting; greater than 126 on more than one result- Diabetes. ADA guidelines. Results may be falsely elevated after the administration of Sulfapyridine. Results may be falsely depressed after the administration of Sulfasalazine. Performed By: #### L 500.72514, L500.71409 #### [facility] [address] [place] [address] Potassium [Moles/Vol] 3.9 mmol/L Normal 3.5-5.1 [facility] Comment on above: Order Comment: Campu s: M Performed By: #### L 500.96280, L500.20961 #### [facility] [address] [place] [address] Sodium [Moles/Vol] 140 mmol/L Normal 136-145 [facility] Comment on above: Order Comment: Campu s: M Performed By: #### L 500.92156, L500.47977 #### [facility] [address] [place] [address] Urea nitrogen [Mass/Vol] 12 mg/dL Normal 7-26 [facility] Comment on above: Order Comment: Campu s: M Performed By: #### L 500.48564, L500.25153 #### [facility] [address] [place], [place] [address] Urea nitrogen/Creatinine [Mass ratio] 18 mg/mg Normal 15-24 [facility] Comment on above: Order Comment: Titus s: M Performed By: #### L 500.46912, L500.89093 #### [facility] [address] [place] [id number] Pablo 09-13-2020 EMERGENCY PHYSICIAN REPORT This is a preliminary report only, as the practitioner review and authentication has not occurred. Normal [facility] ER PHYSICIAN ASSESSMENT RECORDS : FlexChartData Event Time: 09/13/2020 15:05 Status: Signed [facility] Lacy Cardenas [[id number]] Attending Physician 1995 Addendum (V2b) Chart created at 09/13/2020 14:32 by Braden Williamson Chart closed at 09/13/2020 14:32 Entry in Emergency Department at 09/13/2020 12:45, departure at 09/13/2020 14:58 Patient Name: Lacy Cardenas Record Number: [id number] Date: 09/13/2020 14:32 Entered Department at: 09/13/2020 12:45 Patient Seen at: 09/13/2020 13:01 PCP: *None,. Chief Complaint:Near Syncopal, working in heat became light headed, had energy drink this AM with water. EMS run report reviewed (not applicable for EMT squads).. Patient transported to ED by EMS [facility] (not applicable for EMT squads) .. : Discharge Report Event Time: 09/13/2020 14:31 : FlexChartData Event Time: 09/13/2020 15:05 Status: Signed [facility] Lacy Cardenas [[id number]] [facility] PATIENT NAME: LACY CARDENAS [address] [facility] [address] [place] MEDICAL REC #: [id number] [place] [address] EMERGENCY DEPARTMENT REPORT EMERGENCY DEPARTMENT PHYSICIAN Attending Physician 1995 Chart (V2b) Chart created at 09/13/2020 14:27 by Braden Williamson Chart closed at 09/13/2020 14:30 Entry in Emergency Department at 09/13/2020 12:45, departure at 09/13/2020 14:58 Patient Name: Lacy Cardenas Record Number: [id number] Date: 09/13/2020 14:27 Entered Department at: 09/13/2020 [...] she was at work and had a [employer] working outside she became overheated and [...] Fever Eyes: negative for Eye Pain Ear/Nose/Throat: [facility] PATIENT NAME: LACY CARDENAS [facility] [address] [facility] MEDICAL REC #: [id number] [place] [address] EMERGENCY DEPARTMENT REPORT EMERGENCY DEPARTMENT PHYSICIAN negative [...] Mg/Dl Cardiogram: Monitor / Rhythm Strip: NSR: wildlife biology internship needed in light of the patients symptoms Medical Decision Making Patient was given IV fluids, p.o. fluids, her electrolytes are normal, she has no complaints. She is certainly prone to vasomotor near syncope likely heat related. Will be given follow-up instructions and [facility] PATIENT NAME: LACY CARDENAS [address] [place] [address] Dr. [facility] MEDICAL REC #: [id number] [place] [address] EMERGENCY DEPARTMENT REP (more content not included)... [facility] IF AMER Greater than 60 [facility] Comment on above: Order Comment: Campu s: M Performed By: #### L 500.32691, L500.37520 #### [facility] [address] [place], [place] [address] IF non-AFR AMER Greater than 60 [facility] Comment on above: Order Comment: Campu s: M Performed By: #### L 500.41815, L500.24187 #### [facility] [address] [place] [address] Vital Signs Date Time Vital Sign Value Performing Clinician Facility 01-14-2025 01:34-0500 Heart rate 64 /min No Primary Care Physician [facility] 01-14-2025 01:34-0500 Respiratory rate 16 /min No Primary Care Physician [facility] 01-14-2025 01:34-0500 SaO2% (BldA) [Mass fraction] 100 % No Primary Care Physician [facility] 01-13-2025 23:28-0500 Body height 170.18 cm No Primary Care Physician [facility] 01-13-2025 23:28-0500 Body mass index (BMI) [Ratio] 41.8 kg/m2 No Primary Care Physician [facility] 01-13-2025 23:28-0500 Body temperature 97.7 [degF] No Primary Care Physician [facility] 01-13-2025 23:28-0500 Body weight 121.15 kg No Primary Care Physician [facility] 01-13-2025 23:28-0500 Diastolic blood pressure 92 mm[Hg] No Primary Care Physician [facility] 01-13-2025 23:28-0500 Systolic blood pressure 144 mm[Hg] No Primary Care Physician [facility] 01-12-2025 08:47-0500 Body mass index (BMI) [Ratio] 41.6 kg/m2 No Primary Care Physician [facility] 01-12-2025 08:47-0500 Body weight 120.68 kg No Primary Care Physician [facility] 01-12-2025 08:47-0500 Diastolic blood pressure 62 mm[Hg] No Primary Care Physician [facility] 01-12-2025 08:47-0500 Systolic blood pressure 114 mm[Hg] No Primary Care Physician [facility] 12-29-2024 14:04-0400 Body height 170.18 cm No Primary Care Physician [facility] 12-29-2024 14:04-0400 Body mass index (BMI) [Ratio] 41.3 kg/m2 No Primary Care Physician [facility] 12-29-2024 14:04-0400 Body weight 119.54 kg No Primary Care Physician [facility] 12-29-2024 14:04-0400 Diastolic blood pressure 72 mm[Hg] No Primary Care Physician [facility] 12-29-2024 14:04-0400 Systolic blood pressure 125 mm[Hg] No Primary Care Physician [facility] 12-17-2024 14:34-0400 Body mass index (BMI) [Ratio] 41.1 kg/m2 No Primary Care Physician [facility] 12-17-2024 14:34-0400 Body weight 119.09 kg No Primary Care Physician [facility] 12-17-2024 14:34-0400 Diastolic blood pressure 82 mm[Hg] No Primary Care Physician [facility] 12-17-2024 14:34-0400 Systolic blood pressure 131 mm[Hg] No Primary Care Physician [facility] 11-19-2024 14:51-0400 Body height 170.18 cm No Primary Care Physician [facility] 11-19-2024 14:51-0400 Body mass index (BMI) [Ratio] 40.1 kg/m2 No Primary Care Physician [facility] 11-19-2024 14:51-0400 Body weight 116.23 kg No Primary Care Physician [facility] 11-19-2024 14:51-0400 Diastolic blood pressure 72 mm[Hg] No Primary Care Physician [facility] 11-19-2024 14:51-0400 Systolic blood pressure 125 mm[Hg] No Primary Care Physician [facility] 10-19-2024 13:07-0400 Body height 170.18 cm No Primary Care Physician [facility] 10-19-2024 13:07-0400 Body mass index (BMI) [Ratio] 40.1 kg/m2 No Primary Care Physician [facility] 10-19-2024 13:07-0400 Body weight 116.26 kg No Primary Care Physician [facility] 10-19-2024 13:07-0400 Diastolic blood pressure 75 mm[Hg] No Primary Care Physician [facility] 10-19-2024 13:07-0400 Systolic blood pressure 116 mm[Hg] No Primary Care Physician [facility] 06-07-2024 15:04-0400 Body height 170.18 cm No Primary Care Physician [facility] 06-07-2024 15:02-0400 Body mass index (BMI) [Ratio] 40.2 kg/m2 No Primary Care Physician [facility] 06-07-2024 15:02-0400 Body weight 116.62 kg No Primary Care Physician [facility] 06-07-2024 15:02-0400 Diastolic blood pressure 83 mm[Hg] No Primary Care Physician [facility] 06-07-2024 15:02-0400 Systolic blood pressure 131 mm[Hg] No Primary Care Physician [facility] 04-16-2024 11:07-0500 Body mass index (BMI) [Ratio] 40.7 kg/m2 No Primary Care Physician [facility] 04-16-2024 11:07-0500 Body weight 117.93 kg No Primary Care Physician [facility] 04-16-2024 11:07-0500 Diastolic blood pressure 84 mm[Hg] No Primary Care Physician [facility] 04-16-2024 11:07-0500 Systolic blood pressure 124 mm[Hg] No Primary Care Physician [facility] 03-07-2024 13:30-0500 Body temperature 98 [degF] No Primary Care Physician [facility] 03-07-2024 13:30-0500 Diastolic blood pressure 79 mm[Hg] No Primary Care Physician [facility] 03-07-2024 13:30-0500 Heart rate 65 /min No Primary Care Physician [facility] 03-07-2024 13:30-0500 Respiratory rate 14 /min No Primary Care Physician [facility] 03-07-2024 13:30-0500 Systolic blood pressure 143 mm[Hg] No Primary Care Physician [facility] 03-07-2024 08:30-0500 SaO2% (BldA) [Mass fraction] 99 % No Primary Care Physician [facility] 03-04-2024 09:21-0500 Body mass index (BMI) [Ratio] 43.6 kg/m2 No Primary Care Physician [facility] 03-04-2024 09:21-0500 Body weight 126.26 kg No Primary Care Physician [facility] 03-04-2024 09:00-0500 Diastolic blood pressure 84 mm[Hg] No Primary Care Physician [facility] 03-04-2024 09:00-0500 Systolic blood pressure 134 mm[Hg] No Primary Care Physician [facility] 03-04-2024 08:38-0500 Body mass index (BMI) [Ratio] 43.7 kg/m2 No Primary Care Physician [facility] 03-04-2024 08:38-0500 Body weight 126.66 kg No Primary Care Physician [facility] 02-27-2024 09:39-0500 Body mass index (BMI) [Ratio] 43.6 kg/m2 No Primary Care Physician [facility] 02-27-2024 09:39-0500 Body weight 126.26 kg No Primary Care Physician [facility] 02-27-2024 09:39-0500 Diastolic blood pressure 77 mm[Hg] No Primary Care Physician [facility] 02-27-2024 09:39-0500 Systolic blood pressure 120 mm[Hg] No Primary Care Physician [facility] 02-23-2024 09:10-0500 Body mass index (BMI) [Ratio] 43.2 kg/m2 No Primary Care Physician [facility] 02-23-2024 09:10-0500 Body weight 125.36 kg No Primary Care Physician [facility] 02-23-2024 09:05-0500 Diastolic blood pressure 76 mm[Hg] No Primary Care Physician [facility] 02-23-2024 09:05-0500 Heart rate 86 /min No Primary Care Physician [facility] 02-23-2024 09:05-0500 Systolic blood pressure 129 mm[Hg] No Primary Care Physician [facility] 02-23-2024 09:04-0500 Body temperature 97.5 [degF] No Primary Care Physician [facility] 02-23-2024 09:04-0500 Respiratory rate 16 /min No Primary Care Physician [facility] 02-20-2024 10:43-0500 Diastolic blood pressure 80 mm[Hg] No Primary Care Physician [facility] 02-20-2024 10:43-0500 Heart rate 73 /min No Primary Care Physician [facility] 02-20-2024 10:43-0500 Systolic blood pressure 136 mm[Hg] No Primary Care Physician [facility] 02-20-2024 10:21-0500 SaO2% (BldA) [Mass fraction] 99 % No Primary Care Physician [facility] 02-20-2024 09:46-0500 Body mass index (BMI) [Ratio] 43.4 kg/m2 No Primary Care Physician [facility] 02-20-2024 09:46-0500 Body weight 125.64 kg No Primary Care Physician [facility] 02-20-2024 08:26-0500 Body mass index (BMI) [Ratio] 43.4 kg/m2 No Primary Care Physician [facility] 02-20-2024 08:26-0500 Body weight 125.64 kg No Primary Care Physician [facility] 02-20-2024 08:26-0500 Diastolic blood pressure 85 mm[Hg] No Primary Care Physician [facility] 02-20-2024 08:26-0500 Systolic blood pressure 125 mm[Hg] No Primary Care Physician [facility] 02-13-2024 13:42-0500 Diastolic blood pressure 79 mm[Hg] No Primary Care Physician [facility] 02-13-2024 13:42-0500 Heart rate 107 /min No Primary Care Physician [facility] 02-13-2024 13:42-0500 Systolic blood pressure 132 mm[Hg] No Primary Care Physician [facility] 02-13-2024 11:57-0500 SaO2% (BldA) [Mass fraction] 97 % No Primary Care Physician [facility] 02-13-2024 11:55-0500 Body temperature 98.6 [degF] No Primary Care Physician [facility] 02-13-2024 11:55-0500 Respiratory rate 18 /min No Primary Care Physician [facility] 02-13-2024 11:47-0500 Body mass index (BMI) [Ratio] 43.5 kg/m2 No Primary Care Physician [facility] 02-13-2024 11:47-0500 Body weight 126.21 kg No Primary Care Physician [facility] 02-13-2024 09:17-0500 Body mass index (BMI) [Ratio] 43.5 kg/m2 No Primary Care Physician [facility] 02-13-2024 09:17-0500 Body weight 126.09 kg No Primary Care Physician [facility] 02-13-2024 09:17-0500 Diastolic blood pressure 83 mm[Hg] No Primary Care Physician [facility] 02-13-2024 09:17-0500 Systolic blood pressure 120 mm[Hg] No Primary Care Physician [facility] 11-22-2023 10:51-0400 Body height 170.2 cm CARA RODRIGUEZ CHRONOMETER ADJUSTER-CNM [facility] 11-22-2023 10:51-0400 Body temperature 98.24 [degF] CARA RODRIGUEZ CHRONOMETER ADJUSTER-CNM [facility] 11-22-2023 10:51-0400 Body weight 122 kg CARA RODRIGUEZ CHRONOMETER ADJUSTER-CNM [facility] 11-22-2023 10:51-0400 Body weight 42.12 kg/m2 CARA RODRIGUEZ CHRONOMETER ADJUSTER-CNM [facility] 11-22-2023 10:51-0400 Diastolic Blood Pressure Non-Invasive 62 mm[Hg] CARA RODRIGUEZ CHRONOMETER ADJUSTER-CNM [facility] 11-22-2023 10:51-0400 Heart rate 61 /min CARA MARQUEZLER CHRONOMETER ADJUSTER-CNM [facility] 11-22-2023 10:51-0400 Systolic Blood Pressure Non-Invasive 125 mm[Hg] CARA BEITLER CHRONOMETER ADJUSTER-CNM [facility] 11-22-2023 10:46-0400 Diastolic Blood Pressure Non-Invasive 64 mm[Hg] CARA BEITLER CHRONOMETER ADJUSTER-CNM [facility] 11-22-2023 10:46-0400 Heart rate 62 /min CARA BEITLER CHRONOMETER ADJUSTER-CNM [facility] 11-22-2023 10:46-0400 Systolic Blood Pressure Non-Invasive 131 mm[Hg] CARA BEITLER CHRONOMETER ADJUSTER-CNM [facility] 06-30-2023 22:35-0400 Blood Pressure Cuff Size CANDI MAYRAESKA DO [facility] 06-30-2023 22:35-0400 Blood Pressure Location CANDI DURESKA DO [facility] 06-30-2023 22:35-0400 Blood Pressure Method CANDI DURESKA DO [facility] 06-30-2023 22:35-0400 Diastolic Blood Pressure Non-Invasive 88 mm[Hg] CANDI DURESKA DO [facility] 06-30-2023 22:35-0400 Heart rate 68 /min CANDI DURESKA DO [facility] 06-30-2023 22:35-0400 Respiratory rate 14 /min CANDI DURESKA DO [facility] 06-30-2023 22:35-0400 Systolic Blood Pressure Non-Invasive 138 mm[Hg] CANDI NUNEZESKA DO [facility] 06-30-2023 18:48-0400 Body temperature 97.52 [degF] CANDI SOLISKA DO [facility] 06-30-2023 18:48-0400 Body weight 122.1 kg CANDI CONTRERAS DO [facility] 06-30-2023 18:48-0400 Diastolic Blood Pressure Non-Invasive 80 mm[Hg] CANDI NUNEZESKA DO [facility] 06-30-2023 18:48-0400 Heart rate 92 /min CANDI SOLISKA DO [facility] 06-30-2023 18:48-0400 Respiratory rate 16 /min CANDI CONTRERAS DO [facility] 06-30-2023 18:48-0400 Systolic Blood Pressure Non-Invasive 162 mm[Hg] CANDI CONTRERAS DO [facility] 10-29-2022 20:56-0400 Diastolic blood pressure 110 mm[Hg] Emily Silva MD Work Phone: [facility] 10-29-2022 20:56-0400 Heart rate 72 /min Emily Silva MD Work Phone: [employer] [facility] 10-29-2022 20:56-0400 Respiratory rate 15 /min Emily Silva MD Work Phone: [facility] 10-29-2022 20:56-0400 SaO2% (BldA) [Mass fraction] 100 % Emily Silva MD Work Phone: [facility] 10-29-2022 20:56-0400 Systolic blood pressure 158 mm[Hg] Emily Silva MD Work Phone: [facility] 10-29-2022 17:50-0400 Body temperature 97.11 [degF] Emily Silva MD Work Phone: [facility] 10-29-2022 15:21-0400 Body weight 117.94 kg Emily Silva MD Work Phone: [facility] 05-08-2022 12:58-0500 Diastolic Blood Pressure Non-Invasive 95 1 ASHTYN LION MD [facility] 05-08-2022 12:58-0500 Heart rate 98 /min ASHTYN LION MD [facility] 05-08-2022 12:58-0500 Respiratory rate 18 /min ASHTYN LION MD [facility] 05-08-2022 12:58-0500 Systolic Blood Pressure Non-Invasive 154 1 ASHTYN LION MD [facility] 05-08-2022 10:34-0500 Body height 170.2 cm ASHTYN LION MD [facility] 05-08-2022 10:34-0500 Body temperature 98.78 [degF] ASHTYN LION MD [facility] 05-08-2022 10:34-0500 Body weight 127.3 kg ASHTYN LION MD [facility] 05-08-2022 10:34-0500 Diastolic Blood Pressure Non-Invasive 77 1 ASHTYN LION MD [facility] 05-08-2022 10:34-0500 Heart rate 66 /min ASHTYN LION MD [facility] 05-08-2022 10:34-0500 Respiratory rate 16 /min ASHTYN LION MD [facility] 05-08-2022 10:34-0500 Systolic Blood Pressure Non-Invasive 137 1 ASHTYN LION MD [facility] 05-08-2022 09:16-0500 Body temperature 99 [degF] Indira Albertoton PA-C Work Phone: [facility] 05-08-2022 09:16-0500 Body weight 126.1 kg Indirasantosh Albertoton PA-C Work Phone: [facility] 05-08-2022 09:16-0500 Diastolic blood pressure 81 mm[Hg] Indira Albertoton PA-C Work Phone: [facility] 05-08-2022 09:16-0500 Heart rate 64 /min Indira Croston PA-C Work Phone: [facility] 05-08-2022 09:16-0500 Respiratory rate 22 /min Indira Croston PA-C Work Phone: [facility] 05-08-2022 09:16-0500 SaO2% (BldA) [Mass fraction] 100 % Indira Croston PA-C Work Phone: [facility] 05-08-2022 09:16-0500 Systolic blood pressure 137 mm[Hg] Indira Croston PA-C Work Phone: [facility] Encounters Encounter Date Encounter Type Care Provider Facility Start: 01-13-2025 End: 01-14-2025 Emergency department patient visit No Primary Care Physician Facility:[facility] Start: 01-12-2025 End: 01-12-2025 ambulatory Mely Castillo [facility] Start: 01-11-2025 End: 01-11-2025 ambulatory DANAE Mcdonough [facility] Start: 12-29-2024 End: 12-29-2024 Patient encounter procedure Ceci Galvez [employer]-C -Laboratory Specimen Work Phone: Start: 12-29-2024 End: 12-29-2024 Patient encounter procedure Ceci Galvez SUPERVISOR [employer]-C -[facility] Work Phone: Start: 12-29-2024 End: 12-29-2024 ambulatory Ceci Galvez [employer] [facility] Start: 12-29-2024 End: 12-29-2024 ambulatory Ceci Galvez [employer] Facility:[facility] Start: 12-17-2024 End: 12-17-2024 Patient encounter procedure Jerome STACY -[facility] Work Phone: Start: 12-17-2024 End: 12-17-2024 ambulatory No Primary Care Physician -[facility] Start: 11-19-2024 End: 11-19-2024 Patient encounter procedure Jerome De Anda CNM -[facility] Work Phone: Start: 11-19-2024 End: 11-19-2024 ambulatory No Primary Care Physician -[facility] Start: 10-19-2024 End: 10-19-2024 Patient encounter procedure Jerome STACY -[facility] Work Phone: Start: 10-19-2024 End: 10-19-2024 ambulatory No Primary Care Physician -[facility] Start: 10-19-2024 End: 10-19-2024 ambulatory No Primary Care Physician Facility:[facility] Start: 10-08-2024 End: 10-08-2024 ambulatory No Primary Care Physician -[facility] Start: 10-08-2024 End: 10-08-[address] Mely Castillo MD -[facility] Work Phone: Start: 10-08-2024 End: 10-08-2024 ambulatory Mely Castillo Facility:[facility] Start: 09-30-2024 End: 09-30-2024 ambulatory No Primary Care Physician -Lab [facility] Start: 09-30-2024 End: 09-30-2024 Patient encounter procedure Jerome De Anda CNM -Lab [facility] Start: 09-30-2024 End: 09-30-2024 ambulatory No Primary Care Physician Facility:[facility] Start: 09-28-2024 End: 09-28-2024 ambulatory No Primary Care Physician -Lab [facility] Start: 09-28-2024 End: 09-28-[address] Yue Patel DO -Lab [facility] Start: 09-28-2024 End: 09-28-2024 ambulatory Yue Patel Facility:[facility] Start: 06-07-2024 End: 06-07-2024 Patient encounter procedure Jerome De Anda [facility] Work Phone: Start: 06-07-2024 End: 06-07-2024 ambulatory No Primary Care Physician [facility] Work Phone: Start: 06-07-2024 End: 06-07-2024 ambulatory No Primary Care Physician Facility:[facility] Start: 04-16-2024 End: 04-16-2024 Patient encounter procedure Jerome De Anda [facility] Work Phone: Start: 04-16-2024 End: 04-16-2024 ambulatory No Primary Care Physician Facility:[facility] Start: 03-12-2024 ambulatory Jerome De Anda Facility :[facility] Start: 03-11-2024 ambulatory Jerome De Adna Facility :[facility] Start: 03-08-2024 End: 03-08-2024 Patient encounter procedure [employer] Dunia Walters -[facility][1] Work Phone: Start: 03-08-2024 End: 03-08-2024 ambulatory Dunia Walters [employer] Facility:[facility] Start: 03-07-2024 Non-patient / Non-visit Barbie Griffith ins CN -[facility] Start: 03-06-2024 Non-patient / Non-visit Barbie Griffith ins CNM -[facility] Start: 03-05-2024 Non-patient / Non-visit Jerome Voss ms CN -[facility] Start: 03-04-2024 Non-patient / Non-visit Jerome Bipin ms CN -[facility] Start: 03-04-2024 ambulatory Barbie Trevizo Facilit y:[facility] Start: 03-04-2024 End: 03-07-2024 Evaluation and management of inpatient Barbie Trevizo CN[facility] Work Phone: Start: 03-04-2024 End: 03-04-[address] Mely Castillo MD -[facility] Work Phone: Start: 03-04-2024 End: 03-04-2024 ambulatory Mely Castillo Facility:[facility] Start: 03-01-2024 End: 03-01-2024 Patient encounter procedure Jerome De Anda CNM -[facility] Work Phone: Start: 03-01-2024 End: 03-01-2024 ambulatory Jerome Bryon Facility:[facility] Start: 02-27-2024 End: 02-27-[address] Mely Castillo MD -[facility] Work Phone: Start: 02-27-2024 End: 02-27-2024 ambulatory Mely Castillo Facility[place] Start: 02-23-2024 ambulatory Jerome De Anda Facility :[facility] Start: 02-23-2024 Non-patient / Non-visit Jerome Voss [facility] Start: 02-23-2024 End: 02-23-2024 ambulatory Jerome De Anda Facility:[facility] Start: 02-23-2024 End: 02-23-2024 Patient encounter procedure Jerome De Anda CNM -[facility] Work Phone: Start: 02-21-2024 ambulatory Barbie Trevizo Facilit y:[facility] Start: 02-21-2024 Non-patient / Non-visit Barbie Griffith faith CN -[facility] Start: 02-20-2024 End: 02-20-2024 ambulatory Barbie Trevizo Facility:[facility] Start: 02-20-2024 End: 02-20-2024 Patient encounter procedure Barbie Trevizo CNM -[facility] Work Phone: Start: 02-20-2024 End: 02-20-[address] Yue Patel DO -[facility] Work Phone: Start: 02-20-2024 End: 02-20-2024 ambulatory Yue [place] Facility:[facility] Start: 02-16-2024 End: 02-16-2024 ambulatory GENIA [facility] Start: 02-13-2024 ambulatory Jerome Bryon Facility :[facility] Start: 02-13-2024 Non-patient / Non-visit Jerome Prietosanjiv zamarripa [facility] Start: 02-13-2024 End: 02-13-2024 ambulatory Jerome De Anda Facility:[facility] Start: 02-13-2024 End: 02-13-2024 Patient encounter procedure Jerome STACYM -[facility] Work Phone: Start: 02-13-2024 End: 02-13-2024 Patient encounter procedure Jerome STACY -[facility] Work Phone: Start: 02-13-2024 End: 02-13-2024 ambulatory Jerome De Anda Facility[facility] Start: 02-02-2024 End: 02-02-2024 ambulatory Jerome Bryon Facility:[facility] Start: 01-28-2024 ambulatory Mely Palma lity:[facility] Start: 01-28-2024 End: 01-28-2024 ambulatory Mely Castillo Facility:[facility] Start: 01-28-2024 End: 01-28-2024 ambulatory No Primary Care Physician Facility:[facility] Start: 01-22-2024 End: 01-22-2024 ambulatory Ceci Galvez NP Facility:[facility] Start: 01-15-2024 End: 01-15-2024 ambulatory MELY CASTILLO [facility] Start: 11-22-2023 End: 11-22-2023 ambulatory NONE PHYSICIAN Facility:[facility] Start: 11-22-2023 End: 11-22-2023 SAME DAY STAY CARA RODRIGUEZ APRN-CN [facility] Start: 07-02-2023 End: 07-02-2023 ambulatory [facility] Work Phone: Start: 07-02-2023 End: 07-02-2023 Patient encounter procedure [facility] Start: 06-30-2023 End: 07-01-2023 Emergency department patient visit CANDI CONTRERAS DO Facility:[facility] Start: 06-30-2023 End: 06-30-2023 Emergency department patient visit CANDI CONTRERAS DO [facility] Start: 06-30-2023 End: 06-30-2023 ambulatory [facility] Work Phone: Start: 06-30-2023 End: 06-30-2023 Patient encounter procedure [facility]-Laboratory Work Phone: Start: 10-29-2022 End: 10-29-2022 Emergency department patient visit [facility] Start: 10-29-2022 End: 10-29-2022 Emergency department patient visit Emily Silva MD Work Phone: [facility] Comment on above: Foreign body of righ t eye, initial encounter (Primary Dx) Start: 10-29-2022 Documentation procedure Александр Rinaldi Work Phone: [facility] 7W MED SURG Comment on above: Eye Pain Start: 05-08-2022 End: 05-08-2022 ambulatory INDIRA RAPP Facility:[id number] Start: 05-08-2022 End: 05-08-2022 Emergency department patient visit ASHTYN LION MD [facility] Start: 05-08-2022 End: 05-08-2022 Office outpatient visit 15 minutes Indira Rapp PA-C Work Phone: [facility] [place] Comment on above: , unspecifi ed gestational age (Primary Dx); Pelvic pain; Vaginal bleeding Start: 01-01-2021 Patient encounter procedure Yumiko Gavin MD Work Phone: [facility] Start: 01-01-2021 Progress Note Yumiko Gavin MD Work Phone: [facility] Procedures Date Procedure Procedure Detail Performing Clinician Start: 01-13-2025 Urnls dip stick/tabl et reagent auto microscopy No Primary Care Physician Start: 12-29-2024 Urine culture No Primar y Care Physician Start: 10-19-2024 Urine culture No Primar y [...] HCV Quant by PCR testing - HCVPCR [id number] Non Reactive: < 0.8 Equivocal: >/= 0.8 [...] of 2) Zoster Vaccines (1 of 2) [facility] Start: 01-14-2025 [facility] Start: 01-13-2025 End: 01-14-2025 Emergency department patient visit Departed Emergency -Emergency Department Work Phone: Start: 01-12-2025 Procedure [facility] Start: 01-12-2025 End: 01-12-2025 Patient encounter procedure -[facility] Work Phone: Start: 12-29-2024 End: 12-29-2024 Patient encounter procedure Departed Clinical -Laboratory Specimen Work Phone: Start: 12-29-2024 Urine culture Urine Culture [facility] Start: 12-29-2024 End: 12-29-2024 Patient encounter procedure Obesity affecting -[facility] Work Phone: Start: 10-19-2024 CBC W Auto Differential panel - Blood [facility] Start: 10-19-2024 Hemoglobin A1c/Hemoglobin.total in Blood [facility] Start: 10-19-2024 Hepatitis C antibody measurement [facility] Start: 10-19-2024 Rubella IgG measurement [facility] Start: 10-19-2024 Serologic test for syphilis [facility] Start: 10-19-2024 [facility] Start: 03-07-2024 Patient discharge [facility] Start: 03-06-2024 Documentation procedure [facility] Start: 03-06-2024 [facility] Start: 03-06-2024 Consultation [facility] Start: 03-05-2024 Administration of medication [facility] Start: 03-05-2024 Application of ice collar, cap or bag [facility] Start: 03-05-2024 Catheterization of vein [facility] Start: 03-05-2024 Introduction of urinary catheter [facility] Start: 03-05-2024 Measuring intake and output [facility] Start: 03-05-2024 Notification of physician [facility] Start: 03-05-2024 Procedure discontinued [facility] Start: 03-05-2024 Provision of activity privileges [facility] Start: 03-05-2024 Vital signs measurements [facility] Start: 03-05-2024 End: 03-05-2024 [facility] Start: 03-05-2024 Documentation procedure [facility] Start: 03-04-2024 Admission procedure [facility] Start: 03-01-2024 biophysical profile w/o non-stress testing BIOPHYS PROFIL W/O NST [facility] Start: 02-23-2024 Nonstress test [facility] Start: 02-23-2024 Obstetric monitoring [facility] Start: 02-23-2024 Vital signs measurements [facility] Start: 02-23-2024 [facility] Start: 02-23-2024 Patient discharge [facility] Start: 02-20-2024 Nonstress test [facility] Start: 02-20-2024 Obstetric monitoring [facility] Start: 02-20-2024 Vital signs measurements [facility] Start: 02-20-2024 [facility] Start: 02-20-2024 Patient discharge [facility] Start: 02-13-2024 Nonstress test [facility] Start: 02-13-2024 Obstetric monitoring [facility] Start: 02-13-2024 Vital signs measurements [facility] Start: 02-13-2024 [facility] Start: 11-08-2022 Influenza vaccination Influenza Vaccine (#1) [facility] Start: 03-10-2022 DEPRESSION ASSESSMENT DEPRESSION ASSESSMENT [facility] Start: 11-08-2021 Influenza vaccination INFLUENZA (#1) [facility] Start: 2017 PAP TESTING PAP TESTING [facility] Start: 2017 Screening for malignant neoplasm of cervix Pap Smear [facility] Start: 05-29-2015 DTaP/Tdap/Td Vaccines (1 - Tdap) DTaP/Tdap/Td Vaccines (1 - Tdap) [facility] Start: 05-29-2015 Urine microalbumin profile DTAP,TDAP,TD (1 - Tdap) [facility] Start: 2014 HEPATITIS C SCREENING HEPATITIS C SCREENING [facility] Start: 2014 Hepatitis C screening Hepatitis C Screening [facility] Start: 2014 HIV SCREENING HIV SCREENING [facility] Start: 2010 PEDS TO ADULT TRANSITION ANNUAL ASSESSMENT PEDS TO ADULT TRANSITION ANNUAL ASSESSMENT [facility] Start: 2008 Depression Screening Depression Screening [facility] Start: 2008 PEDS TO ADULT TRANSITION INITIAL DISCUSSION PEDS TO ADULT TRANSITION INITIAL DISCUSSION [facility] Start: 05-29-2007 HPV VACCINE (1 - 2-dose series) HPV VACCINE (1 - 2-dose series) [facility] Start: 05-29-2007 HPV Vaccines (1 - 2-dose series) HPV Vaccines (1 - 2-dose series) [facility] Start: 1997 MMR Vaccines (1 of 1 - Standard series) MMR Vaccines (1 of 1 - Standard series) [facility] Start: 1997 Varicella vaccination Varicella Vaccines (1 of 2 - 2-dose childhood series) [facility] Start: 1996 COVID-19 VACCINE (#1) COVID-19 VACCINE (#1) [facility] Start: 1996 HEPATITIS B (1 of 3 - 3-dose series) HEPATITIS B (1 of 3 - 3-dose series) [facility] Start: 1996 Hepatitis B Vaccines (1 of 3 - 3-dose series) Hepatitis B Vaccines (1 of 3 - 3-dose series) [facility] Start: 1996 HIV screening HIV Screening [facility] Chlamydia deoxyribon ucleic acid detection [facility] Erythrocyte mean corpuscular volume determination [facility] Biophysical pr ofile panel US [facility] Hematocrit [Volume Fraction] of Blood [facility] Hemoglobin [Mass/vol ume] in Blood [facility] Hepatitis B virus pritchett rface Ag [Presence] in Serum [facility] Leukocytes [#/volume ] in Blood [facility] Mean corpuscular hem oglobin concentration determination [facility] Mean corpuscular hem oglobin determination [facility] Neutrophil count [facility] Neutrophil percent differential count [facility] Patient Education [facility] Work Phone: Patient referral [facility] Work Phone: Platelets [#/volume] in Blood [facility] Red blood cell count [facility] Red cell distributio n width determination [facility] Immunizations Immunization Date Immunization Notes Care Provider Jyotsna vital 01-08-2024 tetanus toxoid, redu eva diphtheria toxoid, and acellular pertussis vaccine, adsorbed No Primary Care Physician [facility] Payers Date Payer Category Payer Self-pay 2023 Unknown [id number] 2023 Unknown [id number] 2022 Unknown [id number] 2022 Worker's Compensation [employer] [id number] 2022-Present [id number] [place] [address] Worker's Comp [id number]. [id number] 1996 Unknown [id number] 2.16.840.1.004027.3.579.2.62 7 1996 Unknown [id number] 2.16.840.1.906472.3.579.2.62 7 1996 Unknown [id number] 2.16.840.1.751968.3.579.2.47 9 1996 Unknown [id number] 2.16.840.1.139701.3.579.2.47 9 1996 Unknown [id number] 2.16.840.1.713484.3.579.2.47 9 Unknown [id number] 2.16.840.1.826064.3.579.2.46 2 Unknown [id number] 2.16.840.1.638687.3.579.2.46 2 Unknown [id number] 2.16.840.1.281014.3.579.2.46 2 Unknown [id number] 2.16.840.1.749867.3.579.2.46 2 Unknown [id number] 2.16.840.1.171643.3.579.2.46 2 Unknown [id number] 2.16.840.1.051501.3.579.2.46 2 Unknown [id number] 2.16.840.1.111253.3.579.2.46 2 Unknown [id number] 2.16.840.1.445845.3.579.2.46 2 Unknown [id number] 2.16.840.1.505390.3.579.2.46 2 Unknown [id number] 2.16.840.1.995413.3.579.2.46 2 Unknown [id number] 2.16.840.1.870523.3.579.2.46 2 Unknown [id number] 2.16.840.1.038934.3.579.2.46 2 Unknown [id number] 2.16.840.1.438227.3.579.2.46 2 Unknown [id number] 2.16.840.1.246065.3.579.2.46 2 Unknown [id number] 2.16.840.1.429993.3.579.2.46 2 Unknown [id number] 2.16.840.1.256872.3.579.2.46 2 Unknown [id number] 2.16.840.1.423708.3.579.2.46 2 Unknown [id number] 2.16.840.1.469495.3.579.2.46 2 Unknown [id number] 2.16.840.1.542840.3.579.2.46 2 Unknown [id number] 2.16.840.1.167123.3.579.2.46 2 Unknown [id number] 2.16.840.1.889741.3.579.2.46 2 Unknown [id number] 2.16.840.1.936265.3.579.2.46 2 Unknown [id number] 2.16.840.1.151352.3.579.2.46 2 Unknown [id number] 2.16.840.1.716601.3.579.2.46 2 Unknown [id number] 2.16.840.1.781099.3.579.2.46 2 Unknown [id number] 2.16.840.1.442860.3.579.2.46 2 Unknown [id number] 2.16.840.1.234539.3.579.2.46 2 Unknown [id number] 2.16.840.1.395577.3.579.2.46 2 Unknown [id number] 2.16.840.1.062004.3.579.2.46 2 Unknown [id number] 2.16.840.1.175010.3.579.2.46 2 Unknown [id number] 2.16.840.1.518558.3.579.2.46 2 Unknown [id number] 2.16.840.1.118468.3.579.2.46 2 Unknown [id number] 2.16.840.1.636817.3.579.2.46 2 Unknown [id number] 2.16.840.1.365893.3.579.2.46 2 Unknown [id number] 2.16.840.1.138563.3.579.2.46 2 Unknown [id number] 2.16.840.1.944098.3.579.2.46 2 Unknown [id number] 2.16.840.1.274439.3.579.2.46 2 Unknown [id number] 2.16.840.1.517489.3.579.2.46 2 Unknown [id number] 2.16.840.1.391995.3.579.2.46 2 Unknown [id number] 2.16.840.1.082076.3.579.2.46 2 Unknown [id number] 2.16.840.1.307009.3.579.2.46 2 Unknown [id number] 2.16.840.1.827467.3.579.2.46 2 Unknown [id number] 2.16.840.1.265792.3.579.2.46 2 Social History Date Type Detail Facility Start: 07-08-2023 Tobacco smoking status NVIS Tobacco smoking consumption unknown [facility] Start: 1995 Sex Assigned At Not on file [facility] Start: 05-08-2022 End: 01-13-2025 Tobacco smoking status NVIS Never smoked tobacco [facility] Start: 05-08-2022 End: 10-29-2022 Tobacco use and exposure Smokeless tobacco non-user [facility] Start: 05-08-2022 Alcohol intake Current drinke r of alcohol (finding) [facility] Start: 05-08-2022 Alcohol Comment once a month [facility] Start: 10-29-2022 History of Social function [facility] Start: 10-29-2022 Tobacco use panel [facility] Start: 10-19-2022 End: 10-29-2022 Exposure to SARS-CoV-2 (event) Not sure [facility] Start: 1995 Sex Assigned At Female W [facility] Sex Assigned At Sex [facility] Start: 06-10-2024 Sex Female (finding) [facility] Medical Equipment Procedure Code Equipment Code Equipment Origin al Text Equipment Identifier Dates fluorescein 1 MG ophthalmic strip 1 strip [id number] Start: 10-29-2022 End: 10-29-2022 Goals Date Patient Goal Desired Activity /State Functional Status Date Assessment Result Facility 03-06-2024 Functional status Activity Ability Indepe ndent [facility] Work Phone: 11-22-2023 Functional Status Current Home Treatments None [facility] 06-30-2023 Functional Status Independent [facility] 06-30-2023 Functional Status Standard Safet y ID band on, Allergy Band on, Call device within reach, Bed in low position, Wheels locked [facility] 05-08-2022 Functional Status Independent [facility] 05-08-2022 Functional Status ID band on, Allergy Band on, Call device within reach, Bed in low position, Wheels locked, Visitor at bedside [facility] Mental Status Date Assessment Result Facility 03-06-2024 Cognitive function Appropriate;Naveen kiser [facility] Work Phone: 06-30-2023 Mental Status Orientation Oriented x 4 [facility] 06-30-2023 Mental Status [facility] 05-08-2022 Mental Status Orientation Oriented x 4 [facility] 05-08-2022 Mental Status [facility] Clinical Notes 01-01-2021 to 12-29-2024 Note Date & Type Note Facility 12-29-2024 Progress note [facility] 12-29-2024 Progress note Note Date/Time December 29, 2024 3:13pm [facility] [address], [address] [place] [address] OFFICE VISIT Date of Service: 12/29/24 MR#: [id number] Acct: [id number] Name: LACY MACIAS Rep #: [id number] : 1995 Provider: ANJUM Galvez Age/Sex: 29/F [place] [facility] [place]: Signed Intake Vital Signs 12/29/24 14:04 Height 5 ft 7 in Weight: 263 lb 9 oz BMI 41.3 BP 125/72 H Intake Visit Reasons: OB 17wk Flank/Back Pain, Dysuria Dry Folder Cloth Required: No Is patient in pain?: No Allergies mike Allergy (Severe, Verified 12/29/24 13:55) Anaphylaxis adhesive Allergy (Intermediate, Verified 12/29/24 13:55) Rash Sulfa (Sulfonamide Antibiotics) Adverse Reaction (Intermediate, Verified 12/29/24 13:55) Diarrhea Medications ?Medication ?Instructions ?Recorded ?Confirmed ?Type multivit-min no.71-iron fum 28 cap PO 10/07/24 5 History mg-folate no.1 1 mg-dha 300 mg capsule (PNV-Odenton) cephalexin 500 mg tablet 500 mg PO BID 7 days #14 tab s 12/29/24 12/29/24 Rx Last Menstrual Period: 08/01/24 Zika: Zika virus screening: Negative : No PFSH PFSH Medical History (spontaneous vaginal delivery) Chemical Social History adopted: No household members: spouse and family housing: house number of children: 1 current occupational status: employed current occupation: [employer] current occupational exposures/hazards: Yes (extreme heat) [...] 5-6 times per week duration: 60-90 minutes/day janae/shinto: Episcopalian seatbelt use: always do you feel safe at home: Yes additional social history: Leonardo History 3 Elective abortions Hx Para 1 Spontaneous abortions 1 Hx # Term Pregnancies 1 Ectopic pregnancies Hx # Pregnancies Multiple births # of living children 1 Past Pregnancies Del. Date Name GA/Weeks Outcome Route Bth Weight Infant Gen Labor Lgth Anes th esia Del Locatn Provider FOB 05/09/22 5 spontaneous 03/05/24 Cole 39 live - full term 7lb 5oz Male ep idural [facility] Barbie Santhosh Leonardo Delivery Date: 03/05/24 Last Updated by: Salma Lynn IOL BPP / HPI OB 17wk Flank/Back Pain, Dysuria Details: [...] vb/crampi ng. possible flutters. Declines AFP.US scheduled. 12/29/24 -?-?-?-?-?-?-?-?-?-?-?-?- 17w 5d 263 lb 9 oz (+7 lb 9 oz) 125/72 1+ -?-?-?-?-?-?-?-?-?-?-?-?- Negative 150 -?-?-?-?-?-?-?-?-?-?-?-?- MH-No VB. Feelin g flutters. Was having dysuria and some low pelvic pressure. That has improved but still dysuria. +UA, keflex sent. Culture pending ACOG First Trimester First Trimester: Desire for [...] preference, Signs and Symptoms of Preeclampsia, Infant Feeding No , Tolar Education and Family Medical Leave or Disability Forms ROS Const Reports system reviewed and no additional complaints, except as documented GI Denies abdominal pain, Denies nausea and Denies vomiting Exam Const General: cooperative Nutritional Appearance: well nourished GI Palpation: soft, nontender and other (gravid) Results POC Urinalysis Dip (Clinic) Office Urine Color Yellow Last Edit by Marjan Echeverria on 12/29/24 14:07 Office Urine Clarity Clear Last Edit by Marjan Echeverria on 12/29/24 14:07 Office Urine Glucose Negative Last Edit by Marjan Echeverria on 12/29/24 14 :07 Office Urine Ketones Negative Last Edit by Marjan Echeverria on 12/29/24 14 :07 Off Ur Spec [place] 1.010 Last Edit by Marjan Echeverria on 12/29/24 14:07 Office Urine pH 7.5 Last Edit by Marjan Echeverria on 12/29/24 14:07 Office Urine Bilirubin Negative Last Edit by Marjan Echeverria on 12/29/24 14:07 Office Urine Urobilinogen Negative Last Edit by Marjan Echeverria on 14:07 Office Urine Blood Negative Last Edit by Marjan Echeverria on 12/29/24 14:0 7 Office Urine Blood Hemolyzed Negative Last Edit by Marjan Echeverria on 12/29/24 14:07 Office Urine Protein 1+ Last Edit by Marjan Echeverria on 12/29/24 14:07 Office Urine Nitrate Negative Last Edit by Marjan Echeverria on 12/29/24 14 :07 Off Ur Leukocytes Positive Last Edit by Marjan Echeverria on 12/29/24 14:07 Large Leukocytes Coding Level of Care Code Off vis,est,level 3 Diagnoses Supervision of high risk in second trimester O09.92 Trimester: second trimester Urinary tract infection in mother during second trimester of O23.42 Trimester: second trimester 17 weeks gestation of Z3A.17 Weeks of gestation: 17 weeks Obesity affecting in second trimester, unspecified obesity type O99.212 Obesity type affecting : unspecified obesity Trimester: second trimester Varicella vaccination status unknown Z78.9 depression F53.0 Assessment and Plan Assessment and Plan (1) Supervision of high-risk : Status: Acute Qualifiers: Trimester: second trimester Qualified Code(s): O09.92 - Supervision of high risk , unspecified, second trimester Comment: [id number], STEPHAN 06/03/25, WILFRED Galvan, Leonardo (2) UTI in : Status: Acute Qualifiers: Trimester: second trimester Qualified Code(s): O23.42 - Unspecified infection of urinary tract in , second trimester Comment: +UA, keflex. culture pending (3) : Status: Acute Qualifiers: Weeks of gestation: 17 weeks Qualified Code(s): Z3A.17 - 17 weeks gestation of Comment: declined NIPT & Carrier testing (4) Obesity affecting : Status: Acute Qualifiers: Obesity type affecting : unspecified obesity Trimester: second trimester Qualified Code(s): O99.212 - Obesity complicating , second trimester Comment: HgbA1c (5) Varicella vaccination status unknown: Status: Acute Comment: states has not had virus (6) depression: Status: Acute Comment: Pt stopped taking citalopram 3 mos ago- stable Orders: Orders POC Urinalysis Dip (Clinic) Today R30.0 - Dysuria Culture, Urine Today R30.0 - Dysuria Medications: New cephalexin 500 mg PO BID 14 tabs 0RF 7 days Plan problem list reviewed and updated for most current plan of care and appropriate orders placed. Relevant counseling for the gestational age appropriate provided and ACOG education checklist updated. Continue routine care and follow up. 12/29/24 1417 <Electronically signed by Ceci harris NP [employer]> Date _ Ceci Galvez NP [employer] Dashawn Signature: Date (if applicable) CC: ~ [facility] Work Phone: 1(488) 302-294310-10-2025 Progress [facility] [address] [place] [address], [address] [address] OFFICE VISIT Date of Service: 12/17/24 MR#: [id number] Acct: [id number] Name: LACY MACIAS Rep #: [id number] : 1995 Provider: JAN De Anda Age/Sex: 29/F [place] [facility] [place]: Signed Intake Vital Signs 10/19/24 13:07 11/19/24 14:51 12/17/24 14:34 12/17/24 14:34 Height 5 ft 7 in 5 ft 7 in 5 ft 7 in Weight: 262 lb 9 oz BMI 41.1 BP 131/82 H Intake Visit Reasons: 16wk ob Dry Folder Cloth Required: No Is patient in pain?: No Allergies mike Allergy (Severe, Verified 12/17/24 14:32) Anaphylaxis adhesive Allergy (Intermediate, Verified 12/17/24 14:32) Rash Sulfa (Sulfonamide Antibiotics) Adverse Reaction (Intermediate, Verified 12/17/24 14:32) Diarrhea Medications ?Medication ?Instructions ?Recorded ?Confirmed ?Type multivit-min no.71-iron fum 28 cap PO 10/07/24 5 History mg-folate no.1 1 mg-dha 300 mg capsule (PNV-Odenton) Last Menstrual Period: 08/01/24 Zika: Zika virus screening: Negative : No Have you fallen in the past year?: No PFSH PFSH Medical History (spontaneous vaginal delivery) Chemical Social History adopted: No household members: spouse and family housing: house number of children: 1 current occupational status: employed current occupation: [employer] current occupational exposures/hazards: Yes (extreme heat) pets [...] 5-6 times per week duration: 60-90 minutes/day janae/shinto: Episcopalian seatbelt use: always do you feel safe [...] full term 7lb 5oz Male ep idural [facility] Barbie Patterson Delivery Date: 03/05/24 Last Updated [...] and Symptoms of Preeclampsia, Feeding No , [place]olar Education and Family Medical Leave or Disability [...] in the past year?: No 12/17/24 1530 s CNM> Date _ Jerome Bryon JAN Cosigner Signature: Date (if applicable) CC: ~ [facility]10-10-2025 Progress note Author Jerome De Anda [facility] Services Note Date/Time December 17, 2024 3 :30pm [facility]'s [address], [address] [place] [address] OFFICE VISIT Date of Service: 12/17/24 MR#: [id number] Acct: [id number] Name: LACY MACIAS Rep #: [id number] : 1995 Provider: JAN De Anda Age/Sex: 29/F [place] [facility] [place]: Signed Intake Vital Signs 10/19/24 13:07 11/19/24 14:51 12/17/24 14:34 12/17/24 14:34 Height 5 ft 7 in 5 ft 7 in 5 ft 7 in Weight: 262 lb 9 oz BMI 41.1 BP 131/82 H Intake Visit Reasons: 16wk ob Dry Folder Cloth Required: No Is patient in pain?: No Allergies mike Allergy (Severe, Verified 12/17/24 14:32) Anaphylaxis adhesive Allergy (Intermediate, Verified 12/17/24 14:32) Rash Sulfa (Sulfonamide Antibiotics) Adverse Reaction (Intermediate, Verified 12/17/24 14:32) Diarrhea Medications ?Medication ?Instructions ?Recorded ?Confirmed ?Type multivit-min no.71-iron fum 28 cap PO 10/07/24 5 History mg-folate no.1 1 mg-dha 300 mg capsule (PNV-[place]enton) Last Menstrual Period: 08/01/24 Zika: Zika virus screening: Negative : No Have you fallen in the past year?: No PFSH PFSH Medical History (spontaneous vaginal delivery) Chemical Social History adopted: No household members: spouse and family housing: house number of children: 1 current occupational status: employed current occupation: [employer] current occupational exposures/hazards: Yes (extreme heat) pets [...] 5-6 times per week duration: 60-90 minutes/day janae/shinto: Episcopalian seatbelt use: always do you feel safe [...] full term 7lb 5oz Male ep idural [facility] Barbie Trevizo Leonardo Delivery Date: 03/05/24 Last Updated by: Salma Lynn IOL BPP 06/15 HPI 16wk ob Details: LACY MACIAS is a 29 year old who presents for routine OB visit. OB Visit STEPHAN Calculator Estimated Delivery Date Method Current WG Current Estimate 06/03/25 Ultrasound #1 16w 0d Other Estimates 05/08/25 LMP (Certain) 19w 5d 03/29/26 Ultrasound #2 15w 5d Expected Delivery Route/Plan [...] preference, Signs and Symptoms of Preeclampsia, Infant Feeding No , Tolar Education and Family Medical Leave or Disability [...] fallen in the past year?: No 12/17/24 8760 <Electronically signed by Jerome harris CNM> Date _ Jerome Tamez Signature: Date (if applicable) CC: ~ [facility] Work Phone: 1(824) 245-318009-12-2025 [facility] [address] [place] [address], [address] [place] [address] OFFICE VISIT Date of Service: 11/19/24 MR#: [id number] Acct: [id number] Name: ALCY MACIAS Rep #: [id number] : 1995 Provider: JAN De Anda Age/Sex: 29/F [place] [facility] Status: Signed Intake Vital Signs 06/07/24 15:04 10/19/24 13:07 11/19/24 14:51 Height 5 ft 7 in 5 ft 7 in 5 ft 7 in Weight: 256 lb 4 oz BMI 40.1 BP 125/72 H Intake Visit Reasons: 12wk ob Chief Complaint: 12wk OB Dry Folder Cloth Required: No Is patient in pain?: No Allergies mike Allergy (Severe, Verified 11/19/24 14:49) Anaphylaxis adhesive Allergy (Intermediate, Verified 11/19/24 14:49) Rash Sulfa (Sulfonamide Antibiotics) Adverse Reaction (Intermediate, Verified 11/19/24 14:49) Diarrhea Medications ?Medication ?Instructions ?Recorded ?Confirmed ?Type multivit-min no.71-iron fum 28 cap PO 10/07/24 5 History mg-folate no.1 1 mg-dha 300 mg capsule (PNV-[place]enton) Last Menstrual Period: 08/01/24 Have you fallen in the past year?: No PFSH PFSH Medical History (spontaneous vaginal delivery) Chemical Social History adopted: No household members: spouse and family housing: house number of children: 1 current occupational status: employed current occupation: [employer] current occupational exposures/hazards: Yes (extreme heat) pets [...] 5-6 times per week duration: 60-90 minutes/day janae/shinto: Episcopalian seatbelt use: always do you feel safe [...] full term 7lb 5oz Male ep idural [facility] Barbie Trevizo Leonardo Delivery Date: 03/05/24 Last [...] -?-?-?-?-?-?-?-?-?-?-?-?- 160 -?-?-?-?-?-?-?-?-?-?-?-?- KW- work in for . no vb/cramping. anatomy US with MFM. ACOG [...] preference, Signs and Symptoms of Preeclampsia, Feeding, Tolar Education and Family Medical Leave or Disability [...] Cosigner Signature: Date (if applicable) CC: ~ [facility]09-12-2025 Progress note Author Jerome De Anda [facility] Note Date/Time November 19, 2024 3:14pm [facility] Women[facility] Care [address] [place] [address], [address] [place] [address] OFFICE VISIT Date of Service: 11/19/24 MR#: [id number] Acct: [id number] Name: LACY MACIAS Rep #: [id number] : 1995 Provider: JAN De Anda Age/Sex: 29/F [place] [facility] [place]: Signed Intake Vital Signs 06/07/24 15:04 10/19/24 13:07 11/19/24 14:51 Height 5 ft 7 in 5 ft 7 in 5 ft 7 in Weight: 256 lb 4 oz BMI 40.1 BP 125/72 H Intake Visit Reasons: 12wk ob Chief Complaint: 12wk OB Dry Folder Cloth Required: No Is patient in pain?: No Allergies mike Allergy (Severe, Verified 11/19/24 14:49) Anaphylaxis adhesive Allergy (Intermediate, Verified 11/19/24 14:49) Rash Sulfa (Sulfonamide Antibiotics) Adverse Reaction (Intermediate, Verified 11/19/24 14:49) Diarrhea Medications ?Medication ?Instructions ?Recorded ?Confirmed ?Type multivit-min no.71-iron fum 28 cap PO 10/07/24 5 History mg-folate no.1 1 mg-dha 300 mg capsule (PNV-[place]enton) Last Menstrual Period: 08/01/24 Have you fallen in the past year?: No PFSH PFSH Medical History (spontaneous vaginal delivery) Chemical Social History adopted: No household members: spouse and family housing: house number of children: 1 current occupational status: employed current occupation: [employer] current occupational exposures/hazards: Yes (extreme heat) [...] 5-6 times per week duration: 60-90 minutes/day janae/shinto: Episcopalian seatbelt use: always do you feel safe [...] full term 7lb 5oz Male ep idural [facility] Barbie Trevizo Leonardo Delivery Date: 03/05/24 Last [...] : Status: Acute Comment: , STEPHAN 06/03/25, WILRFED Galvan, Leonardo (3) : Status: Acute Qualifiers: [...] fallen in the past year?: No 11/19/24 5362 <Electronically signed by Jerome harris CNM> Date _ Jerome De Anda CNM Cosigner Signature: Date (if applicable) CC: ~ [facility] Work Phone: 1(258) 993-822908-12-2025 Evaluation note* Diagnosis Onset Date Resolution Status Admit Date Obesity affecting acute October 19, 2024 1:04pm depression acute Oct 1:04pm acute October 19, 2 025 1:04pm Supervision of high-risk acute October 19 1:04pm Varicella vaccination status unknown acute October 19 1:04pm [facility] Work Phone: 1(900) 424-680808-12-2025 Evaluation note* Diagnosis Onset Date Resolution Status [...] status unknown acute November 19, 2024 2:45pm [facility] Work Phone: 1(837) 866-787408-12-2025 Evaluation note* Diagnosis Onset Date Resolution Status [...] acute December 17, 2024 2:28pm depression acute Dec 2:28pm acute December 17, 2024 2:28pm Supervision of high-risk acute December 17 2:28pm Varicella vaccination status unknown acute December 17 2:28pm Obesity affecting acute December 29, 2024 1:50pm depression acute Dec 1:50pm acute December 29, 2024 1:50pm Supervision of high-risk acute December 29 1:50pm UTI in acute December 29, 2024 1:50pm Varicella vaccination status unknown acute December 29 1:50pm [facility] Work Phone: 1(203) 455-605708-12-2025 Evaluation note* Diagnosis Onset Date Resolution Status Admit Date Obesity affecting acute October 19, 2024 1:04pm depression acute Oct 1:04pm acute October 19, 2 025 1:04pm Supervision of high-risk acute October 19 1:04pm Varicella vaccination status unknown resolved October 19 1:04pm Obesity affecting acute November 19, 2024 2:45pm depression acute Nov 2:45pm acute November 2:45pm Supervision of high-risk acute November 19, 2024 2:45pm Varicella vaccination status unknown resolved November 19, 2024 2:45pm Obesity affecting acute December 17, 2024 2:28pm depression acute Dec 2:28pm acute December 17, 2024 2:28pm Supervision of high-risk acute December 17 2:28pm Varicella vaccination status unknown resolved December 17 2:28pm Obesity affecting acute December 29, 2024 1:50pm depression acute Dec 1:50pm acute December 29, 2024 1:50pm Supervision of high-risk acute December 29 1:50pm UTI in acute December 29, 2024 1:50pm Varicella vaccination status unknown resolved December 29 1:50pm Obesity affecting acute January 12, 2025 8:45am Placenta previa antepartum acute January 12, 2025 8:45am depression acute Jan 8:45am acute January 12, 2025 8:45am Supervision of high-risk acute January 12 8:45am UTI in acute January 12, 2025 8:45am [facility] Work Phone: 1(174) 937-752308-12-2025 Progress [facility] [address] [place] [address], [address] [place] [address] OFFICE VISIT Date of Service: 10/19/24 MR#: [id number] Acct: [id number] Name: LACY MACIAS Rep #: [id number] : 1995 Provider: JAN De Anda Age/Sex: 29/F [place] [facility] [place]: Signed Intake Vital Signs 06/07/24 15:04 10/19/24 13:07 Height 5 ft 7 in 5 ft 7 in Weight: 256 lb 5 oz BMI 40.1 BP 116/75 Intake Visit Reasons: *EST* NOB LMP 08/05, STEPHAN 05/12 Chief Complaint: New OB Dry Folder Cloth Required: No Is patient in pain?: No Allergies mike Allergy (Severe, Verified 10/19/24 13:05) Anaphylaxis adhesive Allergy (Intermediate, Verified 10/19/24 13:05) Rash Sulfa (Sulfonamide Antibiotics) Adverse Reaction (Intermediate, Verified 10/19/24 13:05) Diarrhea Medications ?Medication ?Instructions ?Recorded ?Confirmed ?Type multivit-min no.71-iron fum 28 cap PO 10/07/24 5 History mg-folate no.1 1 mg-dha 300 mg capsule (PNV-[place]) Last Menstrual Period: 08/01/24 PFSH PFSH Medical History (spontaneous vaginal delivery) Chemical Social History adopted: No household members: spouse and family housing: house number of children: 1 current occupational status: employed current occupation: [employer] current occupational exposures/hazards: Yes (extreme heat) pets [...] 5-6 times per week duration: 60-90 minutes/day janae/shinto: Episcopalian seatbelt use: always do you feel safe [...] full term 7lb 5oz Male ep idural [facility] Barbie Trevizo Leonardo Delivery Date: 03/05/24 Last [...] (Rh) Sensitized, Pulmonary (e.g.,TB,Asthma), Seasonal allergies, Breast, Cytometry Technologist surgery, Operations/hospitalizations, Anesthetic complications (epidural failed after [...] unspecified, unspecifiedtrimester Hepatitis B Surface Antigen 10/07/24 O09.90 - [...] patient chose: [ ] 10/19/24 1338 s JAN> Date _ Jerome De Anda CNM Cosigner Signature: Date (if applicable) CC: ~ [facility]08-03-2025 Radiology Diagnostic study note [facility] Imaging Services [address] [place] [address] Transvaginal w/Preg US MR#: [id number] Acct: [id number] Name: LACY MACIAS Rep #: [id number] : 1995 F 29 From: Madi Minaya MD PCP: Care Physician,No Primary Status: REG CLI Study:Transvaginal w/Preg US Date of Exam: 10/08/24 Exam# [id number] Ordering Dr: Mely Silvre MD PROCEDURE: TRANSVAGINAL W/PREG US 10/08/2024 REASON [...] intrauterine gestation, as described above. [facility]: Dr. Mely Castillo MD; No Primary Care Physician ~ Evaluation Engineer: Signed [facility]03-31-2025 Evaluation note* Diagnosis Onset Date Resolution Status Admit Date depression acute Mar ch 2024 2:55pm Positive home test deleted June 07, 2024 2:55pm [facility] Work Phone: 1(272) 530-781812-29-2024 [facility] Medical Records Department [address] [place] [address] Discharge Summary 03/07/24 0928 MR#: [id number] Acct: [id number] Name: LACY MACIAS Rep #: [id number] : 1995 28 From: Barbie Trevizo CNM PCP: Care Physician,No Primary Status:ADM IN Location: UE237-5 Providers Date of Admission: 03/04/24 Primary Care [...] Care Physician,No Primary [Primary Care Provider] - Disposition Disposition (needs filled in before D/C Order can be placed): Home, Self Care 03/07/24 0930 Cosigner Signature (if applicable): CC: JAN Trevizo; No Primary [facility] Phys[facility] Evaluation note* Diagnosis Onset Date Resolution Status [...] acute June 07, 2024 2:55pm depression acute May 2:55pm [facility] Work Phone: 1(702) 792-130409-14-2024 Hospital Discharge instructions Patient Education 11/22/2023 11:21:18 7 - Labor and Delivery Outpatient Instructions (CUSTOM) [facility] DELIVERY OUTPATIENT HOME-GOING INSTRUCTIONS _X_ [...] the nearest Emergency Room for assistance. Form 684477 D: 02/15 Document Released: 02/24/2006 Document Revised: 02/13/2012 Document Reviewed: 02/24/2006 [facility] Patient Information 2012 [employer]. Follow Up Care 11/22/2023 10:45:47 With:MELY CASTILLO MD Address: [facility] [address] [place] [address]- [phone] When: Unknown Comments:Follow-up as scheduled [facility] 04-23-2024 Hospital Discharge instructions Patient Education 06/30/2023 [...] your baby will most likely be fine. [phone] [employer]. [address] [place] [address], [place] [address]. All rights reserved. This information is not [...] or as directed by your healthcare provider. 6092-4544 [employer]. [address] [place] [address]. All rights reserved. This information is not intended as a substitute for professional medical care. Always follow yourhealthcare professional's instructions. Follow Up Care 06/30/2023 18:48:51 With:Follow up with primary care provider Address:Unknown When:2-4 days [facility] 04-22-2024 Note Discharge Instructions Thank you for allowing [facility] to assist you with your healthcare needs. [...] your baby will most likely be fine. [phone] [employer]. [address] [place] [address], [place] [address]. All rights reserved. This information is not [...] or as directed by your healthcare provider. [phone] [employer]. [address] [place] [address], [place] [address]. All rights reserved. This information is not intended as a substitute for professional medical care. Always follow yourhealthcare professional's instructions. Additional Information VACCINATE! IT SAVES LIVES! Members of the community who have not yet received the COVID-19 vaccine and would like to receive it can visit one of [facility] vaccine clinics. There are many vaccine clinic locations within the [facility]. For locations and available times, please visit www.gettheshot.coronavirus.[place].gov/. It is important to note that some COVID mobile vaccine clinics are held outdoors and may be canceled in rainy or stormy conditions. To learn more about pediatric vaccinations (ages 5-11), we invite you to visit the [facility] webpage. https://www.akPrifloats.org/pages/4146-Svkjg-Bhoiflfhobh-Ooxeayqmwk-Hxjko-Zpq stions.htmlTo learn more about the COVID-19 vaccine, we invite you to visit the CDC website for a list of frequently asked questions. https://www.cdc.gov/coronavirus/2019-ncov/vaccines/faq.html [facility] Patient Portal Access Instructions: Stay connected with your healthcare team and access your personal medical information anytime with the [email or web address] Patient Portal. If you would like a full copy of your medical records please contact the [facility] Medical Records Department Friday through Friday between 8a.m. and 4:30p.m. Please follow the directions below to access the portal: 1.Access the email account you provided upon registration to the [facility].2.Look for an invitation email from [facility].3.Open the email and access the invitation link: Accept Invitation to [email or web address].Fill in the required purvis to create your account. Sign into www.[employer] with your username and password that you [...] you will allow to register on the [facility] Patient Portal for access to your information. You can also access the [facility] Patient Portal on the AboutUs.org paul. Simply click on Health Records under [employer] and then click on the Biomeasure logo. HOW TO SAFELY DISPOSE OF PRESCRIPTION [...] Call your local pharmacy or go to http://Clip Interactive.Pollfish/8P9Vz1f to find one close to you.3.Make use of household items: Use cat litter or old coffee grounds to dispose medications if other options arenot available. Mix your drugs with these household products, seal them in an airtight container andthrow it into the garbage. Call [facility]: [phone] to be sure your drugs can be [...] am aware that I should contactmy doctor. Patient/Baker Doughnut Signature: Date/Time: Relationship to Patient: Witness Name/Signature: Date/Time: [facility]04-22-2024 Evaluation + Plan note Diagnostic Tests Pending * Urine test (LAB) 06/30/23 [facility] 08-22-2023 Emergency department Note* Brigette Taylor RN - 10/29/2022 9:05 PM EDT Pt discharged to home by CIRO Vera. No IV in place. Brigette Taylor RN 10/29/222104 [facility]16-27-8986 Emergency department Note* Brigette Taylor RN - 10/29/2022 9:05 PM EDT Pt discharged to home by CIRO Vera. No IV in place. Brigette Taylor RN 10/29/222104 * Devendra Donovan RN - 10/29/2022 8:56 PM EDT Jody SUPERVISOR PILE DRIVING bedside. Devendra Donovan RN 10/29/222055 * Devendra Donovan RN - 10/29/2022 8:56 PM EDT Pt A+Ox4. Pt has even and equal chest rise. Pt denies any needs at this time. Devendra Donovan RN 10/29/222055 * Mabel Malloy RN - 10/29/2022 5:01 PM EDT Report given to MALDONADO Templeton, ED nurse manager background. Mabel Malloy RN 10/29/22 1705 * Mabel Malloy RN - 10/29/2022 4:53 PM EDT Pt to go to [facility] ED for further evaluation. Pt left amb in satisfactory to go by private vehicle with ride. Mabel Malloy RN 10/29/22 7207 * Mabel Malloy RN - 10/29/2022 4:48 PM EDT Pt had urine drug screen done per company policy s/p work injury. Mabel Malloy RN 10/29/22 8637 * Emily Silva MD - 10/29/2022 3:16 PM EDT EMERGENCY DEPARTMENT ENCOUNTER Pt Name: Lacy Cardenas Birthdate 1995 Date of evaluation: 10/29/2022 ED Provider: Emily Silva MD CHIEF COMPLAINT Chief Complaint Patient presents with Eye Problem Pt states was at work at [employer] and had safety eyewear in place. Possible [...] plan will be to transfer her to [facility] emergency department in order to be evaluated by the hand rigger there. Patient is agreeable to this. Will be transferred via private vehicle that a coworker will drive. I Emily Silva MD am the primary class teacher of record. FINAL IMPRESSION 1. Foreign body of right eye, initial encounter DISPOSITION Transfer To [facility] Ed 10/29/2022 03:51:50 PM PATIENT REFERRED TO: [...] 10/29/2022 3:16 PM EDT Emergency Department Encounter [facility] EMERGENCY DEPT Patient: Lacy Cardenas : 1995 [...] medial right eyelid, she was transferred from [facility] for an ophthalmology consult. Focused Physical exam: [...] dictating provider for clarification Hilary Alfred MD [employer] [facility] Hilary Alfred MD 10/29/22 1842 * Salma Galvez RN - 10/29/2022 3:16 PM EDT Bed: 15 Expected date: 10/29/22 Expected time: 7:09 PM Means of arrival: Comments: triage Salma Galvez RN 10/29/22 1914 documented in this [address]22-2023 Hospital Discharge instructions* Discharge Instructions* JADEN Jauregui CNP - 10/29/2022 9:00 PM EDT Buy Refresh eye drops for eye irritation documented in this [address]22-2023 Emergency department Note* Devendra Donovan RN - 10/29/2022 8:56 PM EDT Jody TANNER bedside. Devendra Donovan RN 10/29/222055 [address]Zxebfa63-09-3040 Emergency department Note* Devendra Donovan RN - 10/29/2022 8:56 PM EDT Pt A+Ox4. Pt has even and equal chest rise. Pt denies any needs at this time. Devendra Donovan RN 10/29/222055 [address]Fjsoft85-16-8583 History of Present illness Narrative* Александр Wilson Gentry - 10/29/2022 7:50 PM EDT ED ophthalmology [...] [facility] and instill into right eye (OD) if she experiences any further irritation in right eye. documented in this [facility]08-22-2023 NotePt to go to [facility] ED for further evaluation. Pt left amb in satisfactory to go by private vehicle with ride. Mabel Malloy RN 10/29/22 1657[facility]08-22-[facility]23 Emergency department Note* Mabel Malloy RN - 10/29/2022 5:01 PM EDT Report given to MALDONADO Templeton, ED nurse manager background. Mabel Malloy RN 10/29/22 7872 [facility] HospitalFmqfnq86-37-9435 Emergency department Note* Mabel Malloy RN - 10/29/2022 4:53 PM EDT Pt to go to [facility] ED for further evaluation. Pt left amb in satisfactory to go by private vehicle with ride. Mabel Malloy RN 10/29/22 1657 [facility] HospitalSberar50-87-4067 Emergency department Note* Mabel Malloy RN - 10/29/2022 4:48 PM EDT Pt had urine drug screen done per company policy s/p work injury. Mabel Malloy RN 10/29/22 1649 [facility] HospitalEwomeh64-85-2940 Emergency department Note* Salma Galvez RN - 10/29/2022 3:16 PM EDT Bed: 15 Expected date: 10/29/22 Expected time: 7:09 PM Means of arrival: Comments: triage Salma Galvez RN 10/29/22 1914 [facility] [id number] Physician Emergency department Note* Emily Silva MD - 10/29/2022 3:16 PM EDT EMERGENCY DEPARTMENT ENCOUNTER Pt Name: Lcay Cardenas Birthdate 1995 Date of evaluation: 10/29/2022 ED Provider: Emily Silva MD CHIEF COMPLAINT Chief Complaint Patient presents with Eye Problem Pt states was at work at [employer] and had safety eyewear in place. Possible [...] Was at work when something flew into ignacio. 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 Patient is agreeable to this. Will be transferred via private vehicle that a coworker will drive. I Emily Silva MD am the primary class teacher of record. FINAL IMPRESSION 1. Foreign body of right eye, initial encounter DISPOSITION Transfer To [facility] 10/29/2022 03:51:50 PM PATIENT REFERRED [...] Medicine Provider Emily Silva MD 10/29/22 1614 [facility] [id number] Physician Emergency department Note* Hilary Alfred MD - 10/29/2022 3:16 PM EDT Emergency Department Encounter [facility] EMERGENCY DEPT Patient: Lacy Cardenas : 1995 [...] medial right eyelid, she was transferred from [facility] for an ophthalmology consult. Focused Physical exam: [...] for clarification Hilary Alfred MD Acute Care [facility] Hilary Alfred MD 10/29/22 [address] [employer] Phone: [phone] Hospital Discharge instructions Patient Education 05/08/2022 12:40:10 [...] have children, spend extra time with them. [phone] [employer] [place] [address]. All rights reserved. This information is not intended as a substitute for professional medical care. Always follow yourwvumedicine [facility] hospitalcare professional's instructions. 05/08/2022 12:40:05 Understanding Miscarriage: [...] a bicycle Wishing away or denying a 7785-1674 [employer]. [address] [place] [address]. All rights reserved. This information is not intended as a substitute for professional medical care. Always follow yourhealthcare professional's instructions. Follow Up Care 05/08/2022 10:21:20 With:LICHA CASEY Address: [address] [place] [address], [facility] [address] Benavidez, my UNDERWRITING [place] [address]- [phone] When:2-4 days With:Go to emergency room if symptoms worsen Address:Unknown When:2-4 days [facility] 03-01-2023 Note Discharge Instructions Thank you for allowing [facility] to assist you with your healthcare needs. [...] LICHA CASEY When Within 2-4 days Where: [address] [place] [address], [address] Benavidez, my UNDERWRITING [place] [address]- [phone] Follow Up with Go to emergency room [...] children, spend extra time with them. [employer]. [address] [place] [address]. All rights reserved. This information is not [...] a bicycle Wishing away or denying a [employer]. [address] [place] [address]. All rights reserved. This information is not intended as a substitute for professional medical care. Always follow yourhealthcare professional's instructions. Additional Information VACCINATE! IT SAVES LIVES! Members of the community who have not yet received the COVID-19 vaccine and would like to receive it can visit one of [facility] vaccine clinics. There are many vaccine clinic locations within the [facility]. For locations and available times, please visit www.gettheshot.coronavirus.[place].gov/. It is important to note that some COVID mobile vaccine clinics are held outdoors and may be canceled in rainy or stormy conditions. To learn more about pediatric vaccinations (ages 5-11), we invite you to visit the [facility] webpage. https://www.[facility].org/pages/4770-Rzafx-Bszcpgaerms-Rwjnkujoth-Hohgl-Yea stions.htmlTo learn more about the COVID-19 vaccine, we invite you to visit the CDC website for a list of frequently asked questions. https://www.cdc.gov/coronavirus/2019-ncov/vaccines/faq.html [email or web address] Patient Portal Access Instructions: Stay connected with your healthcare team and access your personal medical information anytime with the [email or web address] Patient Portal. If you would like a full copy of your medical records please contact the [facility] Medical Records Department Friday through Friday between 8a.m. and 4:30p.m. Please follow the directions below to access the portal: 1.Access the email account you provided upon registration to the [facility].2.Look for an invitation email from [facility].3.Open the email and access the invitation link: Accept Invitation to [email or web address].Fill in the required purvis to create your account. Sign into www.[employer]vt with your username and password that you [...] you will allow to register on the [email or web address] Patient Portal for access to your information. You can also access the [email or web address] Patient Portal on the [employer]. Simply click on Health Records under [employer].ta and then click on the Biomeasure logo. HOW TO SAFELY DISPOSE OF PRESCRIPTION [...] Call your local pharmacy or go to http://bit.Pollfish/3U5Dd9f to find one close to you.3.Make use of household items: Use cat litter or old coffee grounds to dispose medications if other options arenot available. Mix your drugs with these household products, seal them in an airtight container andthrow it into the garbage. Call [facility]: [phone] to be sure your drugs can be [...] am aware that I should contactmy doctor. Patient/Baker Doughnut Signature: Date/Time: Relationship to Patient: Witness Name/Signature: Date/Time: [facility] María Lfvzawvr94-52-3625 NoteHNO ID: [id number] Author: Indira Salazar (Aneta) ANETA Rapp Service: ? Author Type: Physician Photoengraving Supervisor Type: Progress Notes Filed: 05/08/2022 9:56 AM [...] emergency department. Therefore patient was sent to [facility] emergency department for further evaluation and management. Indira Rapp PA-C, ANETA Return for To ER for evaluation and management.[facility]03-01-2023 History of Present illness Narrative* Indira Paredes) ANETA Rapp - 05/08/2022 9:53 AM EST [...] emergency department. Therefore patient was sent to [facility] emergency department for further evaluation and management. Indira Rapp PA-C, ANETA Return for To ER for evaluation and management. [facility] History of Present illness Narrative* Yumiko [...] Patient understands and agrees. Yumiko Gavin MD [id number] SSI File#: [id number] END OF DOCUMENT / CHANGE LOG FOLLOWS Last Edited By Elec. Signed By Yumiko Gavin MD #PAWPR Yumiko Gavin MD #PAWPR on 01/09/2021 19:40 ET on 01/09/2021 19:40 ET Revision Number - 2 ^^^ Verified/Reviewed by 01/09/211939 JEN [facility] PATIENT NAME: LACY CARDENAS [address] [facility] [address] Mora MEDICAL REC #: [id number] [place] [address] [facility] REPORT STATCARE PHYSICIAN documented in this encounterGladstone ClinicEvaluation + Plan note No data available for this section [facility] Evaluation note* Diagnosis , unspecified gestational age- Primary Pelvic pain Vaginal bleeding Other specified noninflammatory disorder of vagina documented in this encounter [facility] Diagnosis Foreign body of right eye, initial encounter- Primary documented in this encounter [facility] Hospital[facility] noteNo assessment information availableWUniversity Hospitals [facility] Work Phone: Evaluation note* Diagnosis Onset Date Resolution Status Admit Date Obesity affecting acute October 19, 2024 1:04pm depression acute Oct 1:04pm acute October 19, 2 025 1:04pm Supervision of high-risk acute October 19 1:04pm Varicella vaccination status unknown acute October 19 1:04pm [facility] Work Phone: Progress note No data available for this section [facility] Progress note Author Jerome De Anda [facility] Services Note Date/Time October 19, 2024 1: 38pm [facility] Women's Care [address] [place] [address], [address] [place] [address] OFFICE VISIT Date of Service: 10/19/24 MR#: [id number] Acct: [id number] Name: LACY MACIAS Rep #: [id number] : 1995 Provider: JAN De Anda Age/Sex: 29/F [place] [facility] Status: Signed Intake Vital Signs 06/07/24 15:04 10/19/24 13:07 Height 5 ft 7 in 5 ft 7 in Weight: 256 lb 5 oz BMI 40.1 BP 116/75 Intake Visit Reasons: *EST* NOB LMP 08/05, STEPHAN 05/12 Chief Complaint: New OB Dry Folder Cloth Required: No Is patient in pain?: No Allergies mike Allergy (Severe, Verified 10/19/24 13:05) Anaphylaxis adhesive Allergy (Intermediate, Verified 10/19/24 13:05) Rash Sulfa (Sulfonamide Antibiotics) Adverse Reaction (Intermediate, Verified 10/19/24 13:05) Diarrhea Medications ?Medication ?Instructions ?Recorded ?Confirmed ?Type multivit-min no.71-iron fum 28 cap PO 07/31/25 08/12/2 5 History mg-folate no.1 1 mg-dha 300 mg capsule (PNV-[place]) Last Menstrual Period: 08/01/24 PFSH PFSH Medical History (spontaneous vaginal delivery) Chemical Social History adopted: No household members: spouse and family housing: house number of children: 1 current occupational status: employed current occupation: [employer] current occupational exposures/hazards: Yes (extreme heat) pets [...] 5-6 times per week duration: 60-90 minutes/day janae/shinto: Episcopalian seatbelt use: always do you feel safe at home: Yes additional social history: [place] History 3 Elective abortions Hx Para 1 Spontaneous abortions 1 Hx # Term Pregnancies 1 Ectopic pregnancies Hx # Pregnancies Multiple births # of living children 1 Past Pregnancies Del. Date Name GA/Weeks Outcome Route Bth Weight Infant Gen Labor Lgth Anesthesia Del Locatn Provider FOB 05/09/22 5 spontaneous 03/05/24 Cole 39 live - full term 7lb 5oz Male ep idural [facility] Barbie Trevizo Leonardo Delivery Date: 03/05/24 Last [...] (Rh) Sensitized, Pulmonary (e.g.,TB,Asthma), Seasonal allergies, Breast, Cytometry Technologist surgery, Operations/hospitalizations, Anesthetic complications (epidural failed after [...] unspecified, unspecified trimester Type & Screen 10/07/24 O09. - Supervision of high risk , unspecified, unspecified trimester Rubella IgG 10/07/24 O09.90 - Supervision of high risk , unspecified, unspecified trimester Hepatitis C Antibody 10/07/24 O09.90 - Supervision of high risk , unspecified, unspecified trimester Hepatitis B Surface Antigen 10/07/24 O09. - Supervision of high risk , unspecified, unspecified trimester Culture, Urine 10/07/24 O. - Supervision of high risk , unspecified, [...] Cosigner Signature: Date (if applicable) CC: ~ [facility] Work Phone: Reason for referral (narrative)No reason for referral information availableW[facility] Work Phone: Summary Purpose Family History No Family History Records FoundNo Family History Records FoundNo Family History Records Found No data available for this section No Family History Records FoundNo Family History Records Found No data available for this section No Family History Records FoundNo Family History Records Found Advance Directives Advance Directive Response Recorded Date/ Time Living Will No March 04 2:26pm Do you have a Healthcare Power of Stone And Plate Preparer Apprentice? No March 04, 2024 2:26pm Advance Directive Response Recorded Date/ Time Do you have a Healthcare Power of Stone And Plate Preparer Apprentice? No January 13, 2025 11:54pm Chief Complaint and Reason for Visit Chief [...] Admit Date Nausea and vomiting during Feb 9:10am Non-reactive NST (non-stress test) Decem mindy 2023 9:10am Obesity affecting February 9:10am February 13, 2024 9 :10am Supervision of high-risk [facility] 2023 9:10am Nausea and vomiting during Feb emb2023 10:20am Non-reactive NST (non-stress test) [facility] 2023 10:20am Obesity affecting February 10:20am February 13, 2024 1 0:20am Supervision of high-risk [facility] 2023 10:20am Nausea and vomiting during Feb emb2023 8:23am Non-reactive [facility] 8:23[facility] Obesity affecting February 8:23am February 20, 2024 8:23am Supervision of high-risk [facility] 2023 8:23am NST (non-stress test) reactive on surveillance February 20, 2024 9:26am Nausea and vomiting during Feb ember 2023 8:50am NST (non-stress test) reactive on surveillance February 23, 2024 8:50am Non-reactive NST (non-stress test) [facility] 2023 8:50am Obesity affecting February 8:50am February 23, 2024 8:50am Supervision of high-risk [facility] 2023 8:50am Nausea and vomiting during Feb 9:14am NST (non-stress test) reactive on surveillance February 27, 2024 9:14am Non-reactive NST (non-stress test) [facility] 2023 9:14am Obesity affecting February 9:14am February 27, 2024 9:14am Supervision of high-risk [facility] 2023 9:14am Nausea and vomiting during Feb ember 2023 8:26am NST (non-stress test) reactive on surveillance March 04, 2024 8:26am Non-reactive NST (non-stress test) [facility] 2023 8:26am Obesity affecting February 8:26am March 04, 2024 8:26am Supervision of high-risk Dece 2023 8:26am (spontaneous vaginal delivery) Dece 2023 12:07pm Encounter for induction of labor Teetee dobbins 2023 12:07pm Nausea and vomiting during Dec ember 2023 12:07pm NST (non-stress test) reactive on surveillance March 04, 2024 12:07pm Obesity affecting February 12:07pm March 04, 2024 12:07pm Supervision of high-risk Dece 2023 12:07pm Care and examination of lactating [...] 4:1 1pm *EST* NOB LMP 08/05, STEPHAN 05/12October 19, 2024 1:04pm Reason for Visit Admit Date Obesity affecting October 19, 2024 1:04pm depression October 19, 2024 1:04pm October 19, 2024 1: 04pm Supervision of high-risk Augus 2024 1:04pm Varicella vaccination status unknown Oct us2024 1:04pm Chief Complaint Admit Date DATING October 08, 2024 4:1 1pm *EST* NOB LMP 08/05, STEPHAN 05/12October 19, 2024 1:04pm 12wk ob November 19, 2024 2:45pm Reason for Visit Admit Date Obesity affecting October 19, 2024 1:04pm depression October 19, 2024 1:04pm October 19, 2024 1: 04pm Supervision of high-risk Augus t 2024 1:04pm Varicella vaccination status unknown Oct 1:04pm Obesity affecting November 192024 2:45pm depression November 19 2:45pm November 19, 2024 2:45pm Supervision of high-risk Reggie 2024 2:45pm Varicella vaccination status unknown [facility] 2024 2:45pm Chief Complaint Admit Date DATING October 08, 2024 4:1 1pm *EST* NOB LMP 08/05, STEPHAN 05/12October 19, 2024 1:04pm 12wk ob November 19, 2024 2:45pm 16wk ob December 17, 2024 2 :28pm OB 17wk Flank/Back Pain, Dysuria December 29, 2024 1:50pm Reason for Visit Admit Date Obesity affecting October 19, 2024 1:04pm depression October 19, 2024 1:04pm October 19, 2024 1: 04pm Supervision of high-risk Octus 2024 1:04pm Varicella vaccination status unknown Oct 1:04pm Obesity affecting November 192024 2:45pm depression November 19 2:45pm November 19, 2024 2:45pm Supervision of high-risk Nove 2024 2:45pm Varicella vaccination status unknown [facility] 2024 2:45pm Obesity affecting December 2:28pm depression December 17, 2024 2:28pm December 17, 2024 2 :28pm Supervision of high-risk Octob er 2024 2:28pm Varicella vaccination status unknown [facility] douglas 2024 2:28pm Obesity affecting December 1:50pm depression December 29, 2024 1:50pm December 29, 2024 1 :50pm Supervision of high-risk Octob er 2024 1:50pm UTI in December 29, 2024 1 :50pm Varicella vaccination status unknown [facility] douglas 2024 1:50pm Chief Complaint Admit Date DATING October 08, 2024 4:1 1pm *EST* NOB LMP 08/05, STEPHAN 05/12October 19, 2024 1:04pm 12wk ob November 19, 2024 2:45pm 16wk ob December 17, 2024 2 :28pm OB 17wk Flank/Back Pain, Dysuria December 29, 2024 1:50pm 19W 5D OB January 12, 2025 8 :45am gu complaint January 13, 2025 1 1:26pm Reason for Visit Admit Date Obesity affecting October 19, 2024 1:04pm depression October 19, 2024 1:04pm October 19, 2024 1: 04pm Supervision of high-risk Augus t 2024 1:04pm Varicella vaccination status unknown Aug ust 2024 1:04pm Obesity affecting November 192024 2:45pm depression November 19 2:45pm November 19, 2024 2:45pm Supervision of high-risk Septe mber 2024 2:45pm Varicella vaccination status unknown Sep tember 2024 2:45pm Obesity affecting December 2:28pm depression [...] vaccination status unknown Oct douglas 2024 1:50pm Obesity affecting January 8:45am Placenta previa antepartum January 12, 2025 8:45am depression January 12, 2025 8:45am January 12, 2025 8 :45am Supervision of high-risk Novem 2024 8:45am UTI in January 12, 2025 8 :45am Additional Source Comments INFORMATION SOURCE (unrecogn ized section and content) DATE CREATED AUTHOR 04/29/2021 [facility] [place] DATE CREATED AUTHOR AUTHOR'S ORGANIZ ATION 05/09/2022 [facility] DATE CREATED AUTHOR AUTHOR'S ORGANIZ ATION 11/08/2022 [facility] DATE CREATED AUTHOR AUTHOR'S ORGANIZ ATION 08/05/2023 [facility] ([place]) DATE CREATED AUTHOR AUTHOR'S ORGANIZ ATION 11/26/2023 [facility] DATE CREATED AUTHOR AUTHOR'S ORGANIZ ATION 01/12/2025 [facility] DATE CREATED AUTHOR AUTHOR'S ORGANIZ ATION 01/17/2025 [facility] Source Comments (unrecognize d section and content) In the event this informatio n is protected by the Federal Confidentiality of Alcohol and Drug Abuse Patient Records regulations: The Federal rules restrict any use of the information to criminally investigate or prosecute any alcohol or drug abuse patient.[facility] the event this information is protected by the Federal Confidentiality of Alcohol and Drug Abuse Patient Records regulations: The Federal rules restrict any use of the information to criminally investigate or prosecute any alcohol or drug abuse patient.[facility] Reason for Visit (unrecogniz ed section [...] ED RN Name: ASHTYN LION MD Position: AH ED Physician Member Role: ED Physician Address: Address: [facility] [address] [place] [address]- [place] Care Team Related Persons Name: RICHAR CARDENAS Address: Home [address] [place] [address] [place] Care Teams (unrecognized sec tion and [...] Provider Active S tart: March 04, 2024 Jermoe De Anda CNM Referring Provider Active S [...] End: March 08, 2024 Dunia Walters NP, SUPERVISOR [employer]LE [employer]IVING-C Attending Provider Active Start: March 08, 2024 [...] CNM Attending Provider, Referring Pro vider Active Normalizer Relationship Specialty Start Date End Date [facility] [address] [place] [address] PCP - General 10/29/22 Normalizer Relationship Specialty Start Date End Date [facility] [address] [place] [address] PCP - General 10/29/22 Team Status: Active [...] End: December 29, 2024 Ceci Galvez NP, SUPERVISOR [employer] Attending physician Active Start: December 29, 2024 End: December 29, 2024 Team Status: Inactive Member Role/Relationship Status Dates No Primary Care Physician Primary care physician Activ e Start: December 29, 2024 End: December 29, 2024 Ceci Galvez SUPERVISOR [employer]IVING, SUPER[employer] Attending physician Active Start: December 29, 2024 End: December 29, 2024 Team Status: Inactive Member Role/Relationship Status Dates No Primary Care Physician Primary care physician Activ e Start: January 12, 2025 End: January 12, 2025 No Primary Care Physician Referring Provider Active Start: January 12, 2025 End: January 12, 2025 Dr. Mely Castillo MD Attending physician Active Start: January 12, 2025 End: January 12, 2025 Team Status: Active Member Role/Relationship Status Dates No Primary Care Physician Primary care physician Activ e Start: January 12, 2025 Dr. Mely Castillo MD Attending physician Active Start: January 12, 2025 Team Status: Inactive Member Role/Relationship Status Dates No Primary Care Physician Primary care physician Activ e Start: January 13, 2025 End: January 14, 2025 Dr. Leonidas Núñez DO Emergency Departm ent Physician Active Start: January 13, 2025 End: January 14, 2025 Scheduled Active and Recently Administ ered Medications [...] BE BASED ON THE PRIMARY CLINICAL RECORDS. [facility]. provides no warranty or guarantee of the accuracy or completeness of information in this document.
--- NOTE | 2025-02-15 15:28 | OB.TRI.PN ---
Progress Notes Date of Service: 02/07/25 Progress Note: Patient seen at 23 weeks for status post fall no abdominal trauma heart tones present no regular contractions seen no abdominal pain patient stable for discharge to home no vaginal bleeding. Patient monitored for 1 hour no significant contractions reviewed bleeding and labor precautions.
== END 2025-02-07 17:40 | disposition home or self-care (01) ==
LOC: WPOUT 16:38 → WP 16:38
PROVIDERS: Referring Provider Obstetrics & Gynecology; Visit Provider Obstetrics & Gynecology
DX: Z34.92 Encounter for supervision of normal pregnancy, unspecified, second trimester (principal)
CPT/HCPCS: 59025; 59050; 99221; G0378

== ENCOUNTER 2025-02-27 03:10 | Outpatient (CLI) | payer MEDICAID, SELFPAY ==
[2025-02-27 03:25] VITALS: BMI 43.5
[2025-02-27 03:34] VITALS: RESP 16; TEMP 36.4
[2025-02-27 03:35] VITALS: BP 132/70; PULSE 66
--- NOTE | 2025-03-16 08:26 | OB.TRI.HP_ITS ---
HPI - General HPI Narrative ENMANUEL MACIAS, is a 29 F G3, P1 who presents at 26+ weeks gestation after a fall. Patient denies any pain or bleeding and just wanted to have the baby checked out to make sure it was okay. She is Rh+. heart tones were reassuring. Maternal Data Information STEPHAN Calculator Estimated Delivery Date Method Current WG Current Estimate 06/03/25 Ultrasound #1 28w 5d Other Estimates 05/08/25 LMP (Certain) 32w 3d 06/05/25 Ultrasound #2 28w 3d PFSH PFSH Medical History (spontaneous vaginal delivery) Chemical Home Medications ?Medication ?Instructions ?Recorded ?Last Taken ?Type multivit-min no.71-iron fum 28 1 cap PO DAILY 10/07/24 02/27/25 History mg-folate no.1 1 mg-dha 300 mg capsule (PNV-[place]) Allergy/AdvReac Type Severity Reaction Status Date / Time mike Allergy Severe Anaphylaxis Verified 03/11/25 15:30 adhesive Allergy Intermediate Rash Verified 03/11/25 15:30 Sulfa (Sulfonamide AdvReac Intermediate Diarrhea Verified 03/11/25 15:30 Antibiotics) Social History adopted: No household members: spouse and family housing: house number of children: 1 current occupational status: employed current occupation: [employer] current occupational exposures/hazards: Yes (extreme heat) pets and animals: Yes (Avoid litterbox) pets and animals: cat(s) and other details: yulissa history of recent travel: Yes ([place]) out of state: Yes out of country: No sexually active: Yes Smoking Status: Never smoker alcohol intake: current alcohol intake frequency: holidays/special occasions only details: not while substance use type: does not use well-balanced diet: daily or most days caffeine: No eating out: rarely or never during the past year weight has: increased > 10 lbs what type of physical activity do you participate in: walking frequency: 5-6 times per week duration: 60-90 minutes/day janae/cheondoism: Zoroastrianism seatbelt use: always do you feel safe at home: Yes additional social history: Leonardo History 3 Elective abortions Hx Para 1 Spontaneous abortions 1 Hx # Term Pregnancies 1 Ectopic pregnancies Hx # Pregnancies Multiple births # of living children 1 Past Pregnancies Del. Date Name GA/Weeks Outcome Route Bth Weight Gen Labor Lgth Anesthesia Del Locatn Provider FOB 05/09/22 5 spontaneous 03/05/24 Cole 39 live - full term 7lb 5oz Male ep idural [facility] Barbie Patterson Delivery Date: 03/05/24 Last Updated by: Salma Lynn IOL BPP 06/15 Visit Details Expected Delivery Route/Plan Labor Preferences- CB/BF classes: [] labor support person: [] labor intervention preferences: [] pain management options preferred: [] cut cord/dad catch: [] : [] PP control planned: [] discussed possible routes of delivery and associated risks: [] special requests: [] Plans Covid status: [] Flu vaccine: [] Tdap vaccine: [] Rhogam: [] LARC form signed: [] Problem list reviewed and updated with the most current plan of care details and appropriate orders placed. Relevant counseling for the gestational age provided. Continue routine care and follow up unless otherwise noted in visit notes/problem list details OB Flowsheet Initial Weight: 256 lb Date -?-?-?-?-?-?-?-?-?-?-?-?- EGA Weight BP Urine Prot -?-?-?-?-?-?-?-?-?-?-?-?- Glucose FHR FuHt Pres Dilation -?-?-?-?-?-?-?-?-?-?-?-?- Effaced St Visit Note 10/19/24 -?-?-?-?-?-?-?-?-?-?-?-?- 7w 4d 256 lb 5 oz (+5 oz) 116/75 -?-?-?-?-?-?-?-?-?-?-?-?- 146 -?-?-?-?-?-?-?-?-?-?-?-?- KW- CRL 1.16cm c ons with formal scan. declines NIPT. 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 anatomy US with MFM. 12/17/24 -?-?-?-?-?-?-?-?-?-?-?-?- 16w 0d 262 lb 9 oz (+6 lb 9 oz) 131/82 Negative -?-?-?-?-?-?-?-?-?-?-?-?- Negative 150 -?-?-?-?-?-?-?--?-?-?-?-?- KW- no vb/crampi ng. possible flutters. Declines AFP.US scheduled. 12/29/24 -?-?-?-?-?-?-?-?-?-?-?-?- 17w 5d 263 lb 9 oz (+7 lb 9 oz) 125/72 1+ -?-?-?-?-?-?-?-?-?-?-?-?- Negative 150 -?-?-?-?-?-?-?-?-?-?-?-?- MH-No VB. Feelin g flutters. Was having dysuria and some low pelvic pressure. That has improved but still dysuria. +UA, keflex sent. Culture pending 01/12/25 -?-?-?-?-?-?-?-?-?-?-?-?- 19w 5d 266 lb 1 oz (+10 lb 1 oz) 114/62 Negative -?-?-?-?-?-?-?-?-?-?-?-?- Negative 150 -?-?-?-?-?-?-?-?-?-?-?-?- SM- no vb lof go od fm no reuglar ctx previa diagnosed afp ordered 02/11/25 -?-?-?-?-?-?-?-?-?-?-?-?- 24w 0d 268 lb 3 oz (+12 lb 3 oz) 134/81 Negative -?-?-?-?-?-?-?-?-?-?-?-?- Negative 135 24 -?-?-?-?-?-?-?-?-?-?-?-?- SM- no vb lof go od fm no regular ctx fu US scheduled 03/11/25 -?-?-?-?-?-?-?-?-?-?-?-?- 28w 0d 276 lb 9 oz (+20 lb 9 oz) 127/74 Negative -?-?-?-?-?-?-?-?-?-?-?-?- Negative 140 -?-?-?-?-?-?-?-?-?-?-?-?- JV- has next us friday to check on previa. no complaints. GCT today. larc signed. NST FHR Rate Baby B NST Reactive:: Appropriate for gestational age Assessment & Plan (1) Trauma during : PLAN: Minor trauma during with reassuring heart tones. Instructed to call if there is concern over the next 1 or 2 days with decreased movement. Return for follow-up visit as scheduled in the office.
== END 2025-02-27 04:38 | disposition home or self-care (01) ==
LOC: WPOUT 03:23 → WP 03:23
PROVIDERS: Referring Provider Obstetrics & Gynecology; Visit Provider Obstetrics & Gynecology
DX: O9A.213 Injury, poisoning and certain other consequences of external causes complicating pregnancy, third trimester (principal); T14.90XA Injury, unspecified, initial encounter; W19.XXXA Unspecified fall, initial encounter; Z3A.28 28 weeks gestation of pregnancy
CPT/HCPCS: 59050; 99221; G0378